=== PATIENT | female | born 1935 | race Caucasian/White ===

== ENCOUNTER → 2019-04-22 | Outpatient (CLI) | payer MEDICARE, SELFPAY ==
[2019-04-22 06:55] VITALS: BMI 27.5
--- NOTE | 2019-04-22 08:55 | LES_PTH ---
PATIENT: MARIAM DUEÑAS LOC: [facility] U#:[id number] AGE/SX: 83/F ROOM: RE04/22/[address]: Dr. Harsha Magaña MD : 1935 BED: DIS: 04/22/2019 SPEC #: [id number] RECD: 04/24/19 07:20 STATUS: ELISEO REIsacc #: [id number] BERNA: 04/22/19 08:[address]: Harsha Magaña DEPT: SURGICAL PATHOLOGY RECD BY: Krishna Sainz ENTERED: 04/24/19 11:36 SP TYPE: Lesion OTHR DR: Dr. Sam Magaña III, MD Tissues: Skin of forearm, NOS Procedures: Surgery Specimen Level IV HEADER OPERATION: Excision right mid forearm skin lesion PRE-OP DIAGNOSIS: Neoplasm of skin TISSUE SUBMITTED: Right mid forearm skin lesion MICROSCOPIC DIAGNOSIS Right mid forearm skin lesion, excisional biopsy: Basal cell carcinoma, completely excised (1 cm in greatest width) with focal area of ulceration and associated inflammation. Actinic keratosis. BELKIS:greta 04/26/19 MICROSCOPIC DESCRIPTION Slides are reviewed. GROSS DESCRIPTION Received in fixative is one container labeled with the patient's name and designated right forearm. The specimen consists of a wood-white skin ellipse measuring 3.2 x 1.7 cm and up to 0.8 cm in thickness. There is a raised brown lesion on the surface measuring 0.5 cm in greatest dimension. The specimen is inked, serially sectioned and submitted entirely in four cassettes. Cassette 1 contains the tips of skin ellipse. The specimen is submitted after additional fixation. / BELKIS:greta 04/24/19 TC:0 CPT: 64527
== END | disposition home or self-care (01) ==
LOC: LABSPEC 04-24 10:01
PROVIDERS: Family Provider Family Medicine; PCP Family Medicine; Referring Provider Surgery; Visit Provider Surgery
DX: C44.612 Basal cell carcinoma of skin of right upper limb, including shoulder (principal); L57.0 Actinic keratosis
CPT/HCPCS: 88305

== ENCOUNTER 2019-05-23 08:21 | Emergency (ER) | payer MEDICARE, SELFPAY ==
[2019-04-22 06:55] VITALS: BMI 27.5
[2019-05-23 08:22] VITALS: BP 152/80; PULSE 72; RESP 18; TEMP 36.6; O2SAT 99; BMI 28.1
--- NOTE | 2019-05-23 08:59 | RAD_ITS ---
STUDY: X-RAY - RIGHT SHOULDER REASON FOR EXAM: Female, 83 years old. Atraumatic pain with decreased range of motion. TECHNIQUE: 4 view(s) of the shoulder. COMPARISON: None. FINDINGS: There is mild degenerative arthrosis of the glenohumeral articulation. Normal acromioclavicular joint. Normal acromion. Normal humeral head and visualized proximal humerus. The soft tissue structures are unremarkable. Normal visualized pulmonary apex. RAD/Shoulder min 2 Views IMPRESSION: Mild degree of arthrosis of the glenohumeral joint Electronically Signed: Kareem Viera, at 9:27 EDT , Service support ,
--- NOTE | 2019-05-23 09:01 | ED.DCSUM_ITS ---
- ER Visit Summary Date of Service: 05/23/19 Chief Complaint: Atraumatic right shoulder pain History of Present Illness: The patient is a 83 F past medical history of diabetes and left shoulder replacement secondary to fracture. Patient had atraumatic right shoulder pain since yesterday. Gradual onset. No fever or chills. No redness or swelling. No type of injury. Pain is a lot worse with trying to move it and lift the arm up. She is unable to raise it above her shoulder due to pain. She did take 2 Tylenol at home which is helped her with the discomfort. No numbness, tingling or weakness in her right hand. No other complaints. Physical Examination: Older female coming by daughter. Vital signs are stable and afebrile. H EENT exam unremarkable. Neck nontender. Lungs clear to auscultation bilaterally. Heart regular rhythm no murmur. Abdomen soft nontender. Extremities moves all 4. Neurovascular intact. Specifically the right shoulder is not tender. Is not swollen. There is no redness or warmth. She has full range of motion with flexion-extension of the right elbow and right wrist. Neither are tender. The wrist has normal radial pulse. 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 The right shoulder she has pain with active passive range of motion primarily when he try to raise it above her shoulder. There is no swelling to the arm. Skin is unremarkable. Neurologically she is awake and alert with no focal motor or sensory deficits. Test Results: Right shoulder x-ray acute abnormality. No significant signs of arthritis. Good joint space. Read both by myself and the radiologist. 3 views. Emergency Department Course and Treatment: And daughter and I discussed all of her treatment options. Daughter strongly wanted to get a right shoulder joint injection. Area was cleaned thoroughly using alcohol pads. And using a posterior lateral approach I injected a total of 10 cc of Xylocaine and Kenalog in her right shoulder joint. Patient tolerated procedure well. She started getting relief within minutes. She was instructed to watch for any signs of infection. Treatment Plan: Ice to the shoulder. Tylenol for pain. Limited Motrin. Follow-up with local orthopedics. Disposition: Discharge Impression: Atraumatic right shoulder pain Right shoulder joint injection with Xylocaine and Kenalog by ER History of diabetes This note was generated with Websandation software. It may contain incorrect words, spelling, and punctuation that were not noted in review of the chart prior to signing ED Disposition - Plan for ED Patient: Referrals: Sam Magaña III, MD [Primary Care Provider] -
--- NOTE | 2019-05-23 09:50 | ED.DEP ---
ED Disposition - Plan for ED Patient: Disposition: Home or Assisted Living Referrals: Sam Magaña III, MD [Primary Care Provider] - As Needed Bebo Venegas DO [STAFF PHYSICIAN] - 3-5 Days Additional Instructions: Follow-up with a local orthopedic doctor of your choice. Ice to shoulder. Tylenol and limited Motrin for pain. Return to ER if you get a fever or your right shoulder gets red and hot. Pain secondary to either arthritis in your right shoulder for inflammation of the rotator cuff.
[2019-05-23] MEDS: Triamcinolone Acetonide 40 MG/ML Vial IU (09:59)
== END 2019-05-23 10:01 | disposition home or self-care (01) ==
PROVIDERS: Emergency Provider Emergency Medicine; Family Provider Family Medicine; PCP Family Medicine
DX: M19.011 Primary osteoarthritis, right shoulder (principal); M25.511 Pain in right shoulder; E11.9 Type 2 diabetes mellitus without complications; Z96.612 Presence of left artificial shoulder joint; Z79.84 Long term (current) use of oral hypoglycemic drugs; Z79.899 Other long term (current) drug therapy
CPT/HCPCS: 20610; 73030; 96372; 99282

== ENCOUNTER 2024-10-04 10:31 | Inpatient (IN) | payer MEDICARE, SELFPAY ==
[2024-10-04] VITALS (23 sets, daily range): BP systolic 105–231; BP diastolic 54–103; PULSE 66–99; RESP 12–33; TEMP 36.1–37; O2SAT 87–99; BMI 31.3; BMI 29.6
--- NOTE | 2024-10-04 11:04 | RAD_ITS ---
STUDY: X-RAY CHEST REASON FOR EXAM: Female, 89 years old. Shortness of breath TECHNIQUE: Single AP portable view of the chest. COMPARISON: Comparison is made with prior study dated April 25, 2013. FINDINGS: EKG electrodes are seen. Vascular congestion and CHF with blunting of both costophrenic angles. Airspace disease in the left hemithorax suggestive of either superimposed infection or possible atypical pulmonary edema. There is borderline cardiomegaly. Normal mediastinum and jayden. Normal visualized pulmonary arteries. There is atherosclerotic calcification of the aortic arch with tortuosity. Normal visualized thoracic spine. Status post left reverse shoulder replacement. There is no demonstrated abnormality of the visualized soft tissue structures of the upper abdomen. RAD/Chest 1 View (Portable) IMPRESSION: Findings in comparison with the CHF has described. Airspace disease in the left hemithorax suggestive of either superimposed infection versus atypical pulmonary edema. Electronically Signed: Kareem Viera MD at 12:25 EST ,
--- NOTE | 2024-10-04 11:05 | EDS_ITS ---
HPI History of Present Illness Chief Complaint: Shortness of Breath Narrative Narrative: 89-year-old female presents with increasing shortness of breath that started this morning. History and physical is mildly limited secondary to respiratory distress. Her daughter who is at the bedside states that this morning, she started having increasing difficulty breathing. She is audibly rhonchorous. She complains of chest heaviness and difficulty breathing. She also states that she feels hot. Daughter states that her legs have been increasingly swollen recently as well. However, she does not have a history of COPD or CHF. [facility] Medical History Skin cancer Dehydration GERD (gastroesophageal reflux disease) Acute blood loss anemia Closed left hip fracture HTN (hypertension) Hypercholesteremia Type II diabetes mellitus Home Medications ?Medication ?Instructions ?Recorded ?Last Taken ?Type atorvastatin 80 mg tablet 80 mg PO QHS 08/25/13 Unknown History glimepiride 2 mg tablet 4 mg PO DAILY 08/25/13 02/08/15 07:00 History lisinopril 40 mg tablet 40 mg PO DAILY 08/25/13 02/14/16 05:00 History multivitamin with folic acid 400 1 tab PO DAILYCM #30 tabs 02/11/15 Unknown Rx mcg tablet amlodipine 5 mg tablet 5 mg PO DAILY 04/10/19 Unknown History Poglitasone 15 mg PO DAILY 05/23/19 Unknown History omeprazole 40 mg capsule,delayed 40 mg PO DAILY 05/23/19 Unknown History release blood sugar diagnostic (True 10/04/24 Unknown History Metrix Glucose Test Strip) Allergy/AdvReac Type Severity Reaction Status Date / Time metformin Allergy Hives Verified 05/23/19 08:24 morphine AdvReac Nausea Verified 05/23/19 08:24 oxycodone (Oxycodone) AdvReac Nausea Verified 05/23/19 08:24 Family History Sister Breast cancer Colon cancer Diabetes Uncle Heart disease Brother Kidney disease Surgical History History of cholecystectomy History of hip replacement History of shoulder replacement S/P ORIF (open reduction internal fixation) fracture Social History household members: none current occupational status: retired Smoking Status: Never smoker alcohol intake: never substance use type: does not use ROS ROS ED ROS Narrative Constitutional: No fever, no chills. However, subjectively warm all over. HEENT: No sore throat. No neck pain. No loss of vision. No rhinorrhea. Cardiovascular: Positive chest heaviness chest pain. No palpitations. Positive/increased pedal edema. Respiratory: Occasional cough, increasing shortness of breath. Abdominal: No abdominal pain. No nausea. No vomiting. Genitourinary: No dysuria. No hematuria. Musculoskeletal: No myalgias. No arthralgias. Neurologic: No headaches. No dizziness. No lightheadedness. Skin: No rash. No change in color. EXAM Physical Exam Narrative Exam Narrative: Afebrile. Vital signs noted. Mild respiratory distress. Cardiovascular examination reveals a regular rate and rhythm. Lungs are rhonchorous with positive tachypnea. Abdomen is soft and nontender with positive bowel sounds. No guarding or rebound. Neurological examination nonfocal and nonlateralizing. Mild anxiety. Positive bilateral pitting pedal edema, equal and symmetric. Const Vital Signs: 10/04/24 10:32 10/04/24 10:37 10/04/24 10:38 Temperature 98.2 F 98.2 F 98.2 F Temperature Source Temporal Temporal Temporal Pulse Rate 66 69 69 Respiratory Rate 28 H 30 H 27 H Respiratory Effort Respiratory Pattern Blood Pressure 231/86 H 231/86 H 231/86 H Blood Pressure Mean 134 134 134 Pulse Ox 95 92 92 Oxygen Delivery Method Room Air Room Air Room Air 10/04/24 10:38 Temperature Temperature Source Pulse Rate Respiratory Rate Respiratory Effort Short of Breath Respiratory Pattern Tachypnea Blood Pressure Blood Pressure Mean Pulse Ox Oxygen Delivery Method Room Air MDM MDM MDM Narrative Medical decision making narrative: The differential diagnosis includes but not limited to acute coronary syndrome versus flash pulmonary edema versus pneumonia versus pneumothorax. Her oxygen saturations were dropping and were 95% on room air then 92% so she was placed on nasal cannula oxygen. Given her tachypnea, I do feel that she would be more comfortable on BiPAP. I discussed with her daughter who is at the bedside whether or not she would want to be intubated, but they declined stating that that is not something that she would not want. History & Record Review Discussion w/independent historian: Patient and Family Discharge Plan Triage Chief Complaint: Shortness of Breath ED Provider: Julio Pickens Dx/Rx/DC Orders Prescriptions: No Action amlodipine 5 mg tablet 5 mg PO DAILY atorvastatin 80 MG tablet 80 mg PO QHS Patient Comments: cholesterol glimepiride 2 MG tablet 4 mg PO DAILY Patient Comments: blood sugar lisinopril 40 MG tablet 40 mg PO DAILY Patient Comments: blood pressure multivitamin with folic acid 1 TABLET tablet 1 tab PO DAILYCM Qty: 30 0RF Patient Comments: supplement omeprazole 40 MG capsule,delayed release(DR/EC) 40 mg PO DAILY Poglitasone 15 mg PO DAILY (DME) True Metrix Glucose Test Strip Strip MISCELLANEOUS DAILY Primary Care Provider: Treva Sandoval Referrals: Treva Sandoval [employer] [Primary Care Provider] - Print Language: Ugandan
--- NOTE | 2024-10-04 11:05 | ED.VIS.DYS ---
HPI History of Present Illness Chief Complaint: Shortness of Breath Narrative Narrative: 89-year-old female presents with increasing shortness of breath that started this morning. History and physical is mildly limited secondary to respiratory distress. Her daughter who is at the bedside states that this morning, she started having increasing difficulty breathing. She is audibly rhonchorous. She complains of chest heaviness and difficulty breathing. She also states that she feels hot. Daughter states that her legs have been increasingly swollen recently as well. However, she does not have a history of COPD or CHF. [facility] Medical History (Updated 10/04/24 @ 14:43 by Julio Pickens MD) Anemia Diabetes Non-smoker Skin cancer Dehydration GERD (gastroesophageal reflux disease) Acute blood loss anemia Closed left hip fracture HTN (hypertension) Hypercholesteremia Type II diabetes mellitus Home Medications ?Medication ?Instructions ?Recorded ?Last Taken ?Type atorvastatin 80 mg tablet 80 mg PO QHS 08/25/13 Unknown History glimepiride 2 mg tablet 4 mg PO DAILY 08/25/13 02/08/15 07:00 History lisinopril 40 mg tablet 40 mg PO DAILY 08/25/13 02/14/16 05:00 History multivitamin with folic acid 400 1 tab PO DAILYCM #30 tabs 02/11/15 Unknown Rx mcg tablet amlodipine 5 mg tablet 5 mg PO DAILY 04/10/19 Unknown History Poglitasone 15 mg PO DAILY 05/23/19 Unknown History omeprazole 40 mg capsule,delayed 40 mg PO DAILY 05/23/19 Unknown History release blood sugar diagnostic (True 10/04/24 Unknown History Metrix Glucose Test Strip) Allergy/AdvReac Type Severity Reaction Status Date / Time metformin Allergy Hives Verified 05/23/19 08:24 morphine AdvReac Nausea Verified 05/23/19 08:24 oxycodone (Oxycodone) AdvReac Nausea Verified 05/23/19 08:24 Family History Sister Breast cancer Colon cancer Diabetes Uncle Heart disease Brother Kidney disease Surgical History (Updated 10/04/24 @ 13:59 by Ade Whiitng) History of appendectomy History of cholecystectomy History of hip replacement History of shoulder replacement S/P ORIF (open reduction internal fixation) fracture Social History household members: none current occupational status: retired Smoking Status: Never smoker alcohol intake: never substance use type: does not use ROS ROS ED ROS Narrative Constitutional: No fever, no chills. However, subjectively warm all over. HEENT: No sore throat. No neck pain. No loss of vision. No rhinorrhea. Cardiovascular: Positive chest heaviness chest pain. No palpitations. Positive/increased pedal edema. Respiratory: Occasional cough, increasing shortness of breath. Abdominal: No abdominal pain. No nausea. No vomiting. Genitourinary: No dysuria. No hematuria. Musculoskeletal: No myalgias. No arthralgias. Neurologic: No headaches. No dizziness. No lightheadedness. Skin: No rash. No change in color. EXAM Physical Exam Narrative Exam Narrative: Afebrile. Vital signs noted. Mild respiratory distress. Cardiovascular examination reveals a regular rate and rhythm. Lungs are rhonchorous with positive tachypnea. Abdomen is soft and nontender with positive bowel sounds. No guarding or rebound. Neurological examination nonfocal and nonlateralizing. Mild anxiety. Positive bilateral pitting pedal edema, equal and symmetric. Const Vital Signs: 10/04/24 10:32 10/04/24 10:37 10/04/24 10:38 Temperature 98.2 F 98.2 F 98.2 F Temperature Source Temporal Temporal Temporal Pulse Rate 66 69 69 Respiratory Rate 28 H 30 H 27 H Respiratory Effort Respiratory Pattern Blood Pressure 231/86 H 231/86 H 231/86 H Blood Pressure Mean 134 134 134 Pulse Ox 95 92 92 Oxygen Delivery Method Room Air Room Air Room Air Fraction of Inspired Oxygen (FIO2) 10/04/24 10:38 10/04/24 11:04 10/04/24 11:10 Temperature Temperature Source Pulse Rate 97 Respiratory Rate 26 H Respiratory Effort Short of Breath Respiratory Pattern Tachypnea Tachypnea Blood Pressure Blood Pressure Mean Pulse Ox 90 Oxygen Delivery Method Room Air Nasal Cannula Fraction of Inspired Oxygen (FIO2) 10/04/24 11:30 10/04/24 11:51 10/04/24 11:56 Temperature 98.6 F Temperature Source Oral Pulse Rate 97 98 98 Respiratory Rate 33 H 26 H 29 H Respiratory Effort Respiratory Pattern Tachypnea Blood Pressure 178/103 H Blood Pressure Mean 128 Pulse Ox 89 93 94 Oxygen Delivery Method Bi-pap Fraction of Inspired Oxygen (FIO2) 50 10/04/24 12:00 10/04/24 13:00 10/04/24 13:00 Temperature 98.2 F 98.4 F Temperature Source Oral Temporal Pulse Rate 93 79 77 Respiratory Rate 25 H 23 H 29 H Respiratory Effort Respiratory Pattern Blood Pressure 133/61 H 105/76 105/76 Blood Pressure Mean 85 85 85 Pulse Ox 96 97 97 Oxygen Delivery Method Bi-pap Bi-pap Bi-pap Fraction of Inspired Oxygen (FIO2) 10/04/24 13:41 10/04/24 14:00 10/04/24 14:00 Temperature 98.4 F 98.2 F Temperature Source Temporal Pulse Rate 77 78 78 Respiratory Rate 29 H 21 H 21 H Respiratory Effort Respiratory Pattern Blood Pressure 105/76 128/56 H 128/56 H Blood Pressure Mean 85 80 80 Pulse Ox 97 98 98 Oxygen Delivery Method Bi-pap Bi-pap Fraction of Inspired Oxygen (FIO2) MDM MDM MDM Narrative Medical decision making narrative: The differential diagnosis includes but not limited to acute coronary syndrome versus flash pulmonary edema versus pneumonia versus pneumothorax. Her oxygen saturations were dropping and were 95% on room air then 92% so she was placed on nasal cannula oxygen. Given her tachypnea, I do feel that she would be more comfortable on BiPAP. I discussed with her daughter who is at the bedside whether or not she would want to be intubated, but they declined stating that that is not something that she would not want. I reviewed her laboratory work and she has a white count of 7.5, hemoglobin 11.0, hematocrit 34.0, platelet count normal at 239. Electrolyte panel is significant for chloride of 110 which I think is more nonspecific, BUN of 29 and creatinine 1.21. Glucose is elevated at 138 but anion gap low at 4. High-sensitivity troponin is 15. Beta natruretic peptide is elevated at 496. On my individual interpretation of her chest x-ray, it does seem like CHF. There is also overlying questionable infiltrate on the left. I reviewed the radiology report which confirms my independent interpretation and comments that this could be atypical pulmonary edema on the left or overlying infection. She does not have a white count or fever here so I will defer antibiotics. She did have continued elevated blood pressure which makes me think that she might be having flash pulmonary edema or hypertensive emergency. She was placed on BiPAP. The BiPAP was causing her anxiety so she was administered Ativan 0.5 mg intravenously as well as hydralazine. As I thought she was having more pulmonary edema, she was also administered Lasix 40 mg intravenously. Her blood pressure is now 128 systolic. She has improved. I discussed the patient with the hospitalist, Dr. Dena Valente, who requested ABG be drawn to see if she required ICU admission. However, her pH is normal and her pCO2 slightly low with elevated pCO2 of 105. She might be able to be weaned off the BiPAP. At this point in time she was admitted to the PCU in stable condition. History & Record Review Discussion w/independent historian: Patient and Family Lab Data Attestation: I reviewed the patient's lab results. Labs: Laboratory Results - last 24 hr 10/04/24 10:49 WBC 7.5 RBC 3.66 L Hgb 11.0 L Hct 34.0 L MCV 92.9 MCH 30.1 MCHC 32.4 RDW Std Deviation 47.4 H RDW Coeff of Najma 14.0 Plt Count 239 MPV 9.5 Immature Gran % (Auto) 0.300 Neut % (Auto) 70.1 H Lymph % (Auto) 19.5 Esmeralda % (Auto) 8.4 Eos % (Auto) 0.9 Baso % (Auto) 0.8 Absolute Neuts (auto) 5.2 Absolute Lymphs (auto) 1.46 Nucleated RBC % 0 Sodium 140 Potassium 4.4 Chloride 110 H Carbon Dioxide 26.0 Anion Gap 4 L BUN 29 H Creatinine 1.21 H Estim Creat Clear Calc 30.42 Est GFR (MDRD) Af Amer 54 L Est GFR (MDRD) Non-Af 45 L BUN/Creatinine Ratio 24.0 H Glucose 138 H Calcium 9.7 Troponin I High Sens 15 B-Natriuretic Peptide 496.4 H ABG Data ABG results: ABG 10/04/24 14:21 Specimen Type ART Sample Site R Radial pH 7.41 Bicarbonate Actual 22.2 Total CO2 23 Base Excess -2 O2 Saturation 98 O2 % 50.0 ABG pCO2 34.7 L ABG pO2 105 H Jacinto Test Positive O2 Delivery Device BiPAP Vent Mode Not entered Clinical Comments 14 6 Radiography Chest X-Ray - ED: 1 View, Read by ED Physician and Read by Radiologist Diagnostic Testing: Clinical Impression(s) from Imaging Studies Chest X-Ray 10/04/24 11:04 IMPRESSION: Findings in comparison with the CHF has described. Airspace disease in the left hemithorax suggestive of either superimposed infection versus atypical pulmonary edema. Electronically Signed: Kareem Viera MD at 12:25 EST , Management Discussion w/another healthcare provider: Hospitalist (Dr. Dena Valente) Discharge Plan Dx/Rx/DC Orders Clinical Impression: Acute hypoxic respiratory failure, CHF (congestive heart failure), Chest heaviness, Dyspnea, Anxiety Disposition Disposition: Acute Care Hospital [facility]
[2024-10-04] MEDS: Ipratropium/Albuterol Sulfate 3 ML AMPUL.NEB INHALATION ×2 (11:06→11:08)
[2024-10-04 11:11] LABS: Absolute Lymphocyte Count 1.46 X10^3/uL (0.83-4.51); Absolute Neutrophil Count 5.2 X10^3/uL (2.0-7.7); Basophil# 0.06 X10^3/uL; Basophil% 0.8 % (0-1); Eosinophil# 0.07 X10^3/uL; Eosinophils% 0.9 % (0-5); Lymphocyte # 1.46 X10^3/ul (0.83-4.51); Lymphocyte % 19.5 % (19-41); Mean Corp Hgb Conc 32.4 g/dL (32-36); Mean Corpuscular Hgb 30.1 pg (27.0-32.0); Mean Corpuscular Volume 92.9 fL (81-99); Mean Platelet Vol. 9.5 fl (6.2-12.0); Monocyte# 0.63 X10^3/uL; Monocyte% 8.4 % (0-10); NRBC Flagged by Analyzer 0 % (0-5); Neutrophil # 5.23 X10^3/uL (2.7-7.7); Neutrophil % 70.1 % (47-70); Platelet Count 239 K/mm3 (150-450); RBC Distribution Width SD 47.4 fl (35.1-43.9); Red Blood Count 3.66 M/mm3 (4.2-5.4); White Blood Count 7.5 K/mm3 (4.4-11.0)
[2024-10-04 11:31] LABS: Anion Gap 4 (5-15); BNP,B-Type NATRIURETIC PEPTIDE 496.4 pg/mL (0-100); BUN 29 mg/dL (7-18); Calcium,Total 9.7 mg/dL (8.5-10.1); Chloride 110 mmol/L (98-107); Creatinine, Serum 1.21 mg/dL (0.55-1.02); EST Glomerular Filtration Rate 45 mL/min (>60); Est Glom Filt Rate - Afr Amer 54 mL/min (>60); Estimated Creatinine Clearance 30.42 ml/min; Glucose 138 mg/dL (74-106); Potassium 4.4 mmol/L (3.5-5.1); Sodium Level 140 mmol/L (136-145); Troponin-I HS 15 pg/mL (3.0-54.0)
[2024-10-04] MEDS: hydrALAZINE 20 MG/ML Vial IV (11:46)
[2024-10-04] MEDS: LORazepam 2 MG/ML Syringe 0.5 MG IV (12:20)
[2024-10-04] MEDS: Furosemide 40 MG/4 ML Vial IV (12:36)
[2024-10-04 14:24] LABS: Allen Test Positive; Base Excess -2 mmol/L (-2 to +2); Bicarbonate 22.2 mmol/L (22-26); Blood Gas Specimen Type ART; Comment 14 6; Mode Not entered; O2 Delivery Device BiPAP; PO2 105 mmHG (75-100); SITE R Radial; SO2 98 % (95-99); Total Carbon Dioxide 23 mmol/L; pCO2 34.7 mmHg (35-45); pH 7.41 (7.35-7.45)
--- NOTE | 2024-10-04 14:40 | HP.PCM.HOS_ITS ---
HPI - General General Date of Admission: 10/04/24 Date of Service: 10/04/24 Chief Complaint: Shortness of breath HPI Narrative MARIAM DUEÑAS, is a 89 F who presented to the emergency department [facility] on 10/04/2024 with shortness of breath. Patient and family both assist with the history. It reported that her symptoms started yesterday and she reported to her son that she just was not feeling quite right but did not describe any symptoms at that time. Evidently today she began having shortness of breath without any significant new cough. She has chronic cough but this has been unchanged. She denies any fever or chills. She denies any new sputum production with cough. She has not had any nausea vomiting or diarrhea. She denies chest pain. She denies any upper respiratory symptoms. She has no known sick contacts. She has never had an echocardiogram and has no known heart issues but does have a history of hypertension and hyperlipidemia as well as DM-2. Family also reiterates that her legs have been much more swollen over the last few weeks. Vital signs on presentation showed a temperature of 98.2, heart rate 66, initial blood pressure was 231/86 with a repeat after treatment of 133/61, respiratory rate has been anywhere between 21 and 33 while she has been in the emergency department and pulse ox was 89% on room air at [place]. She was placed on BiPAP for work of breathing predominantly. CBC shows a normal white count mild anemia with a hemoglobin of 11.0 that is normocytic and appears to be stable when compared to previous lab. She did have a mild left shift at 70.1% neutrophilia. Chemistry panel shows stable electrolytes. BUN is 29 and her serum creatinine is 1.2 with unknown recent baseline however patient does acknowledge she has CKD. Blood glucose was 143. BNP was obtained and found to be 496.4. Her troponin was normal. EKG shows normal sinus rhythm with normal intervals and no ST-T wave changes concerning for acute ischemia. Chest x-ray is consistent with volume overload with possible airspace disease on the left side that would be consistent with possible atypical infection versus pulmonary edema. COVID/flu/RSV was negative. ABG was drawn and showed a pH of 7.41 with a pCO2 of 34.7 and a pO2 of 105 on 50% FiO2. In the emergency department she was placed on BiPAP and given a dose of IV Lasix. [facility] Medical History Anemia Diabetes Non-smoker Skin cancer Dehydration GERD (gastroesophageal reflux disease) Acute blood loss anemia Closed left hip fracture HTN (hypertension) Hypercholesteremia Type II diabetes mellitus Home Medications ?Medication ?Instructions ?Recorded ?Last Taken ?Type atorvastatin 80 mg tablet 80 mg PO QHS 08/25/13 Unknown History glimepiride 2 mg tablet 4 mg PO DAILY 08/25/13 02/08/15 07:00 History lisinopril 40 mg tablet 40 mg PO DAILY 08/25/13 02/14/16 05:00 History multivitamin with folic acid 400 1 tab PO DAILYCM #30 tabs 02/11/15 Unknown Rx mcg tablet amlodipine 5 mg tablet 5 mg PO DAILY 04/10/19 Unknown History Poglitasone 15 mg PO DAILY 05/23/19 Unknown History omeprazole 40 mg capsule,delayed 40 mg PO DAILY 05/23/19 Unknown History release blood sugar diagnostic (True 10/04/24 Unknown History Metrix Glucose Test Strip) Allergy/AdvReac Type Severity Reaction Status Date / Time metformin Allergy Hives Verified 05/23/19 08:24 morphine AdvReac Nausea Verified 05/23/19 08:24 oxycodone (Oxycodone) AdvReac Nausea Verified 05/23/19 08:24 Family History Sister Breast cancer Colon cancer Diabetes Uncle Heart disease Brother Kidney disease Surgical History History of appendectomy History of cholecystectomy History of hip replacement History of shoulder replacement S/P ORIF (open reduction internal fixation) fracture Social History household members: none current occupational status: retired Smoking Status: Never smoker alcohol intake: never substance use type: does not use ROS Constitutional Constitutional: Denies anorexia, change in weight, chills, fatigue, fever(s), malaise, night sweats, weakness or other Eyes Eyes: Denies blurry vision, change in eye color, change in vision, discharge from eye(s), double vision, erythema, eye pain, loss of vision or other ENT HEENT: Denies abnormal hearing, dysphagia, ear pain, epistaxis, headache(s), hearing loss, nasal congestion, nasal discharge, post nasal drip, sinus pressure, sore throat or other Cardiovascular Cardiovascular: Reports dyspnea on exertion, edema and orthopnea; Denies chest pain, claudication, lightheadedness, palpitations, paroxysmal nocturnal dyspnea, rapid heart rate, syncope or other Respiratory/Chest Respiratory/Chest: Reports cough, dyspnea, shortness of breath at rest, shortness of breath with exertion and wheezing; Denies excessive phlegm production, hemoptysis, productive cough or other Gastrointestinal Gastrointestinal: Denies abdominal pain, coffee ground emesis, constipation, diarrhea, dyspepsia, hematemesis, hematochezia, loose stools, melena, nausea, vomiting or other Genitourinary Genitourinary: Denies burning urination, difficulty urinating, dysuria, hematuria, nocturia, urinary frequency, urinary hesitancy, urinary incontinence, urinary urgency or other Musculoskeletal Musculoskeletal: Denies arthralgias, back pain, joint pain, joint stiffness, joint swelling, myalgias, neck pain or other Neurologic Neurologic: Denies abnormal gait, abnormal speech, confusion, disequilibrium, dizziness, focal weakness, headache(s), numbness, paresthesias, seizure-like activity, seizures, syncope, tingling, tremor(s) or other Psychiatric Psychiatric: Denies anxiety, depression, homicidal ideation, suicidal ideation or other Endocrine Endocrinology: Denies change in body appearance, cold intolerance, excessive sweating, heat intolerance, polydipsia, polyuria or other Hematologic/Lymphatic Hematologic/Lymphatic: Denies anemia, easy bleeding, easy bruising, lymphadenopathy or other Allergic/Immunologic Allergic/Immunologic: Denies rhinitis, hives, eczemia, asthma or other Vital Signs Vital Signs Vital Signs: 10/04/24 10:32 10/04/24 10:37 10/04/24 10:38 Temperature 98.2 F 98.2 F 98.2 F Temperature Source Temporal Temporal Temporal Pulse Rate 66 69 69 Respiratory Rate 28 H 30 H 27 H Respiratory Effort Respiratory Pattern Blood Pressure 231/86 H 231/86 H 231/86 H Blood Pressure Mean 134 134 134 Pulse Ox 95 92 92 Oxygen Delivery Method Room Air Room Air Room Air Fraction of Inspired Oxygen (FIO2) 10/04/24 10:38 10/04/24 11:04 10/04/24 11:10 Temperature Temperature Source Pulse Rate 97 Respiratory Rate 26 H Respiratory Effort Short of Breath Respiratory Pattern Tachypnea Tachypnea Blood Pressure Blood Pressure Mean Pulse Ox 90 Oxygen Delivery Method Room Air Nasal Cannula Fraction of Inspired Oxygen (FIO2) 10/04/24 11:30 10/04/24 11:51 10/04/24 11:56 Temperature 98.6 F Temperature Source Oral Pulse Rate 97 98 98 Respiratory Rate 33 H 26 H 29 H Respiratory Effort Respiratory Pattern Tachypnea Blood Pressure 178/103 H Blood Pressure Mean 128 Pulse Ox 89 93 94 Oxygen Delivery Method Bi-pap Fraction of Inspired Oxygen (FIO2) 50 10/04/24 12:00 10/04/24 13:00 10/04/24 13:00 Temperature 98.2 F 98.4 F Temperature Source Oral Temporal Pulse Rate 93 79 77 Respiratory Rate 25 H 23 H 29 H Respiratory Effort Respiratory Pattern Blood Pressure 133/61 H 105/76 105/76 Blood Pressure Mean 85 85 85 Pulse Ox 96 97 97 Oxygen Delivery Method Bi-pap Bi-pap Bi-pap Fraction of Inspired Oxygen (FIO2) 10/04/24 13:41 10/04/24 14:00 10/04/24 14:00 Temperature 98.4 F 98.2 F Temperature Source Temporal Pulse Rate 77 78 78 Respiratory Rate 29 H 21 H 21 H Respiratory Effort Respiratory Pattern Blood Pressure 105/76 128/56 H 128/56 H Blood Pressure Mean 85 80 80 Pulse Ox 97 98 98 Oxygen Delivery Method Bi-pap Bi-pap Fraction of Inspired Oxygen (FIO2) Weight Weight: 77.7 kg Body Mass Index (BMI) 31.3 Physical Exam Const alert, oriented x3, no apparent distress and well nourished; Negative for average body habitus Constitutional Narrative: Obese, elderly, white female, sitting up in bed on BiPAP, appears comfortable at this time, no significant signs of respiratory distress/extremis, appears nontoxic, family at bedside General Appearance: cooperative HEENT normocephalic, head/scalp atraumatic and moist oral mucous membranes; Negative for hearing grossly normal bilaterally HEENT Narrative: Moderate hearing loss Eyes conjunctivae normal Eyes Narrative: No scleral icterus Neck no lymphadenopathy and supple Neck Narrative: Trachea midline, JVD is present, hepatojugular reflex is positive Resp No normal respiratory effort, no retractions, no use of accessory muscles and No clear to auscultation bilaterally Resp Narrative: Tachypnea, breath sounds diffusely are coarse with crackly and scattered wheezing Auscultation: crackles and wheezes; Negative for rhonchi Cardio regular rate, regular rhythm, S1 normal heart sound, S2 normal heart sound, no murmurs, no rub, no gallops and no clicks GI normal to inspection, nondistended, normoactive bowel sounds, soft to palpation and non-tender Extremity Extremity Narrative: 2-3+ bilateral lower extremity pitting edema, no cyanosis or clubbing, radial pulses are 2+ bilaterally, pedal pulses are difficult to palpate due to edema Neuro oriented x3, moves all extremities and no focal motor deficits Neuro Narrative: Moves all extremities symmetrically Psych affect normal Psych Narrative: Interacts appropriately, very pleasant Results Lab / Micro Data 10/04/24 10:49 10/04/24 10:49 Labs: Laboratory Results - last 24 hr 10/04/24 10:49: WBC 7.5, RBC 3.66 L, Hgb 11.0 L, Hct 34.0 L, MCV 92.9, MCH 30.1, MCHC 32.4, RDW Std Deviation 47.4 H, RDW Coeff of Najma 14.0, Plt Count 239, MPV 9.5, Immature Gran % (Auto) 0.300, Neut % (Auto) 70.1 H, Lymph % (Auto) 19.5, [place] % (Auto) 8.4, Eos % (Auto) 0.9, Baso % (Auto) 0.8, Absolute Neuts (auto) 5.2, Absolute Lymphs (auto) 1.46, Nucleated RBC % 0, Sodium 140, Potassium 4.4, Chloride 110 H, Carbon Dioxide 26.0, Anion Gap 4 L, BUN 29 H, Creatinine 1.21 H, Estim Creat Clear Calc 30.42, Est GFR (MDRD) Af Amer 54 L, Est GFR (MDRD) Non-Af 45 L, BUN/Creatinine Ratio 24.0 H, Glucose 138 H, Calcium 9.7, Troponin I High Sens 15, B-Natriuretic Peptide 496.4 H Micro: Microbiology 10/04/24 11:43 Mucosa - Nose SARS-CoV-2, Influenza & RSV (PCR) - Final ABG Data ABG results: ABG 10/04/24 14:21 Specimen Type ART Sample Site R Radial pH 7.41 Bicarbonate Actual 22.2 Total CO2 23 Base Excess -2 O2 Saturation 98 O2 % 50.0 ABG pCO2 34.7 L ABG pO2 105 H [place] Test Positive O2 Delivery Device BiPAP Vent Mode Not entered Clinical Comments 14 6 Imaging Radiology Impression Chest X-Ray 10/04/24 11:04 IMPRESSION: Findings in comparison with the CHF has described. Airspace disease in the left hemithorax suggestive of either superimposed infection versus atypical pulmonary edema. Electronically Signed: Kareem Viera MD at 12:25 EST , Assessment & Plan Assessment/Plan (1) Acute hypoxic respiratory failure: (2) Elevated brain natriuretic peptide (BNP) level: (3) Shortness of breath: PLAN: Plan Acute hypoxic respiratory failure -Currently on BiPAP for work of breathing -Initial pO2 was 105 on 50% FiO2 -Wean oxygen as able and transition to nasal cannula as appropriate -Highly suspect secondary to acute heart failure of unknown etiology/type but potential viral illness as well -Chest x-ray appears to be more consistent with heart failure -COVID/flu/RSV negative -Check respiratory viral panel -Given edema and volume overload on exam will start Lasix drip -Check every 4 hours BMPs -Cazares if needed -N.p.o. for now until no longer needs BiPAP -Once p.o. diet can be initiated will utilize salt restricted and fluid restricted to 1500 cc -Daily weights -Accurate I's and O's -Check echocardiogram Elevated BNP -See above -Echocardiogram pending CKD stage IIIb -Serum creatinine remained stable at 1.2 -Check serial BMPs with loop diuretic utilization -Avoid nephrotoxins as able -Lisinopril on hold for now due to diuretic use not because of CKD DM-2 -Patient is on oral agents as an outpatient we will hold while hospitalized -High-dose sliding scale every 6 hours for now since she is n.p.o. and transition to before meals and at bedtime once p.o. diet can be initiated -Accu-Cheks as ordered Essential hypertension/hyperlipidemia -Continue home atorvastatin -Hold home lisinopril for now given Lasix drip and monitor for need of reinitiation -Continue home amlodipine GERD -Continue home PPI Obesity -BMI 31.3 -Complicates treatment, prognosis, outcomes DVT prophylaxis -Subcu Lovenox daily CODE STATUS -DNR CCA okay for short-term intubation only per discussion with patient and family at the bedside -Patient is considering transitioning to no intubation Charges/Coding Visit Charges Inpatient E&M: 32610 Init Hosp L2
[2024-10-04 15:18] LABS: Anion Gap 5 (5-15); BUN 29 mg/dL (7-18); Calcium,Total 9.9 mg/dL (8.5-10.1); Chloride 110 mmol/L (98-107); Creatinine, Serum 1.21 mg/dL (0.55-1.02); EST Glomerular Filtration Rate 45 mL/min (>60); Est Glom Filt Rate - Afr Amer 54 mL/min (>60); Estimated Creatinine Clearance 30.42 ml/min; Glucose 143 mg/dL (74-106); Potassium 4.4 mmol/L (3.5-5.1); Sodium Level 139 mmol/L (136-145)
--- NOTE | 2024-10-04 16:27 | ECHOD_ITS ---
Reason For Study: CONGESTIVE HEART FAILURE Procedure This was a 2D Doppler, Color Flow transthoracic echocardiogram. Exam performed portable in patient room. Left Ventricle Normal LV size. Mild concentric left ventricular hypertrophy. The left ventricular ejection fraction is 65 %. Stage 1 diastolic dysfunction. Right Ventricle Normal right ventricle. Atria The left and right atria are normal. Mitral Valve Severe mitral annular calcification. Mild (1+) mitral valve insufficiency. Tricuspid Valve Mild tricuspid valve insufficiency. Right ventricular systolic pressure estimated to be 41 mmHg. Aortic Valve Mild focal aortic valve calcification. Trivial aortic valve insufficiency. Pulmonic Valve The pulmonic valve is not well visualized. Great Vessels Normal sized aortic root. Pericardium/Pleural Trivial pericardial effusion. Epicardial fat. MMode/2D Measurements & Calculations LVIDd: 4.7 cm IVSd: 1.1 cm LVOT diam: 1.9 cm LVIDs: 2.9 cm LVPWd: 1.2 cm LVOT area: 2.9 cm2 RVDd: 3.1 cm FS: 37.3 % LA dimension: 3.8 cm asc Aorta Diam: 3.0 cm LAV(MOD-bp): 52.2 ml LAV(MOD-bp) Indexed: 29.9 ml/m2 LAV(MOD-sp2): 54.5 ml LAV(MOD-sp4): 46.6 ml SV(MOD-sp4): 28.4 ml LVAd ap4: 17.0 cm2 LVAd ap2: 18.5 cm2 LVLd ap4: 5.8 cm LVLd ap2: 6.3 cm SI(MOD-sp4): 16.3 ml/m2 EDV(MOD-sp4): 40.7 ml EDV(MOD-sp2): 43.8 ml EDV(sp4-el): 42.6 ml EDV(sp2-el): 45.9 ml LVAs ap4: 8.4 cm2 LVAs ap2: 8.2 cm2 LVLs ap4: 4.7 cm LVLs ap2: 4.5 cm ESV(MOD-sp4): 12.3 ml ESV(MOD-sp2): 12.3 ml ESV(sp4-el): 12.9 ml ESV(sp2-el): 12.7 ml EF(MOD-sp4): 69.8 % EF(MOD-sp2): 72.1 % EF(sp4-el): 69.8 % SV(MOD-sp2): 31.6 ml SV(sp4-el): 29.8 ml Ao sinus diam: 3.1 cm SI(MOD-sp2): 18.1 ml/m2 Ao ST Junction: 2.4 cm LA dimension(2D): 3.8 cm LA A4 area: 17.8 cm2 TAPSE: 2.0 cm RA A4 area: 16.8 cm2 Time Measurements MV dec time: 0.30 sec Doppler Measurements & Calculations MV E max marcel: 128.9 cm/sec Lat Peak E' Marcel: 6.6 cm/sec Med Peak E' Marcel: 5.5 cm/sec MV A max marcel: 96.8 cm/sec E/E' lat: 19.6 E/E' med: 23.2 MV E/A: 1.3 MV V2 max: 148.3 cm/sec MV dec slope: 425.4 cm/sec2 Ao V2 max: 158.2 cm/sec MV max P.8 mmHg Ao max P.0 mmHg MV V2 mean: 97.2 cm/sec Ao V2 mean: 106.8 cm/sec MV mean P.1 mmHg Ao mean P.4 mmHg MV V2 VTI: 37.7 cm Ao V2 VTI: 34.7 cm MVA(VTI): 1.8 cm2 AV (velocity ratio): 0.69 MALI(I,D): 2.0 cm2 MALI(V,D): 2.1 cm2 LV V1 max: 112.9 cm/sec SV(LVOT): 69.3 ml PA V2 max: 121.2 cm/sec LV V1 max P.1 mmHg LV V1 mean P.8 mmHg LV V1 mean: 79.6 cm/sec LV V1 VTI: 24.1 cm TR max macrel: 298.2 cm/sec TR max P.6 mmHg ECHO/Echo Complete Interpretation Summary Mild concentric left ventricular hypertrophy. The left ventricular ejection fraction is 65 %. Stage 1 diastolic dysfunction. Severe mitral annular calcification. Mild (1+) mitral valve insufficiency. Mild tricuspid valve insufficiency. Right ventricular systolic pressure estimated to be 41 mmHg. Mild focal aortic valve calcification. Ordering Physician: Jenifer Valente Performed By: Gricelda Cuba RDCS
[2024-10-04 17:28] LABS: Troponin-I HS 775 pg/mL (3.0-54.0)
[2024-10-04] MEDS: Furosemide 500 MG in Empty Viaflex 50 mL 1 EACH CONT INF (17:39)
[2024-10-04] MEDS: 0.9% Saline Lock 10 ML Syringe IV (17:40)
[2024-10-04 18:08] LABS: Bedside Glucose 151 mg/dL (74-106)
[2024-10-04 19:14] LABS: Anion Gap 7 (5-15); BUN 31 mg/dL (7-18); BUN/Creat Ratio 25.4 RATIO (10-20); Calcium,Total 9.4 mg/dL (8.5-10.1); Chloride 108 mmol/L (98-107); Creatinine, Serum 1.22 mg/dL (0.55-1.02); EST Glomerular Filtration Rate 44 mL/min (>60); Est Glom Filt Rate - Afr Amer 53 mL/min (>60); Estimated Creatinine Clearance 29.34 ml/min; Glucose 175 mg/dL (74-106); Potassium 4.1 mmol/L (3.5-5.1); Sodium Level 139 mmol/L (136-145); Troponin-I HS 1024 pg/mL (3.0-54.0)
--- NOTE | 2024-10-04 19:59 | PCM.HOSP.N ---
Hospitalist Note Called by nursing due to change in troponin. Initial troponin was 15 however repeat troponin was 775 with a third troponin at 1024. Heparin drip initiated and reflex to the second troponin. Echocardiogram pending for tomorrow. Will hold off on cardiology consultation at this time and await echocardiogram as troponin elevation could potentially be related to her acute respiratory failure and hypoxemia with subendocardial ischemia. If echocardiogram is abnormal with wall motion abnormality may need to consider cardiology evaluation. Patient did not have chest pain at all during her prehospital or emergency department course.
[2024-10-04] MEDS: Atorvastatin Calcium 80 MG Tablet PO (20:10)
[2024-10-04 21:28] LABS: International Normalized Ratio 1.1; Partial Thromboplast Time 25.2 Seconds (24.1-36.2); Prothrombin Time (Protime)PT. 14.6 SECONDS (11.7-14.9)
[2024-10-04] MEDS: Heparin Injection (Vial) 5,000 UNIT/ML VIAL 4000 UNIT IV (21:47)
[2024-10-04] MEDS: HEPARIN/D5w 25,000 UNITS 25,000 UNITS/250 ML IV.SOLN. 9 UNITS CONT INF (21:53)
[2024-10-04 22:14] LABS: Bedside Glucose 146 mg/dL (74-106)
[2024-10-04 22:55] LABS: Anion Gap 7 (5-15); BUN 33 mg/dL (7-18); BUN/Creat Ratio 24.6 RATIO (10-20); Chloride 108 mmol/L (98-107); Creatinine, Serum 1.34 mg/dL (0.55-1.02); EST Glomerular Filtration Rate 40 mL/min (>60); Est Glom Filt Rate - Afr Amer 48 mL/min (>60); Estimated Creatinine Clearance 26.72 ml/min; Glucose 151 mg/dL (74-106); Sodium Level 139 mmol/L (136-145); Troponin-I HS 1362 pg/mL (3.0-54.0)
[2024-10-05] VITALS (8 sets, daily range): BP systolic 112–144; BP diastolic 44–51; PULSE 65–70; RESP 15–17; TEMP 36.2–36.9; O2SAT 92–96; BMI 29.6
[2024-10-05 04:18] LABS: Absolute Lymphocyte Count 1.49 X10^3/uL (0.83-4.51); Absolute Neutrophil Count 6.9 X10^3/uL (2.0-7.7); Basophil# 0.04 X10^3/uL; Basophil% 0.4 % (0-1); Eosinophil# 0.06 X10^3/uL; Eosinophils% 0.6 % (0-5); Hematocrit 29.1 % (37-47); Hemoglobin 9.5 g/dL (12.0-15.0); Lymphocyte # 1.49 X10^3/ul (0.83-4.51); Lymphocyte % 15.8 % (19-41); Mean Corp Hgb Conc 32.6 g/dL (32-36); Mean Corpuscular Hgb 29.6 pg (27.0-32.0); Mean Corpuscular Volume 90.7 fL (81-99); Mean Platelet Vol. 9.4 fl (6.2-12.0); Monocyte# 0.88 X10^3/uL; Monocyte% 9.4 % (0-10); NRBC Flagged by Analyzer 0 % (0-5); Neutrophil # 6.91 X10^3/uL (2.7-7.7); Neutrophil % 73.5 % (47-70); Platelet Count 213 K/mm3 (150-450); RBC Distribution Width CV 14.1 % (11.6-14.6); RBC Distribution Width SD 46.2 fl (35.1-43.9); Red Blood Count 3.21 M/mm3 (4.2-5.4); White Blood Count 9.4 K/mm3 (4.4-11.0)
[2024-10-05 04:43] LABS: Partial Thromboplast Time 206.1 Seconds (24.1-36.2)
[2024-10-05 04:53] LABS: ALB/GLOB Ratio 0.9 RATIO (0.9-2.4); AST(SGOT) 34 U/L (15-37); Alanine Aminotransfer ALT/SGPT 45 U/L (13-56); Albumin, Serum 3.1 g/dL (3.2-5.0); Alkaline Phosphatase 79 U/L (45-117); Anion Gap 7 (5-15); BUN 36 mg/dL (7-18); BUN/Creat Ratio 26.9 RATIO (10-20); Calcium,Total 8.9 mg/dL (8.5-10.1); Chloride 106 mmol/L (98-107); Creatinine, Serum 1.34 mg/dL (0.55-1.02); EST Glomerular Filtration Rate 40 mL/min (>60); Est Glom Filt Rate - Afr Amer 48 mL/min (>60); Estimated Creatinine Clearance 26.72 ml/min; Globulin 3.4 g/dL (2.2-4.2); Glucose 109 mg/dL (74-106); Magnesium 1.9 mg/dL (1.6-2.6); Phosphorus 3.6 mg/dL (2.5-4.9); Potassium 3.6 mmol/L (3.5-5.1); Protein, Total 6.5 g/dL (6.4-8.2); Sodium Level 138 mmol/L (136-145)
[2024-10-05 08:11] LABS: Bedside Glucose 102 mg/dL (74-106)
[2024-10-05] MEDS: amLODIPine 5 MG Tablet PO (09:04)
[2024-10-05] MEDS: Pantoprazole Sodium 40 MG Tablet PO (09:04)
[2024-10-05] MEDS: Multivitamins,Therapeutic Tablet 1 TABLET PO (09:05)
--- NOTE | 2024-10-05 10:26 | PCM.PN.HOSP ---
Reason for Visit Reason for Visit: Diagnoses Acute respiratory failure with hypoxia (10/04/24) Shortness of breath (10/04/24) Other specified abnormal findings of blood chemistry (10/04/24) Objective Data Objective Data Vital Signs: Vital Signs Temp Pulse Resp BP Pulse Ox O2 Del Method O2 Flow Rate 97.8 F 65 15 144/47 H 94 Nasal Cannula 1 10/05/24 08:45 10/05/24 08:45 10/05/24 08:45 10/05/24 08:45 10/05/24 08:45 10/05/24 08:45 10/05/24 08:45 FiO2 50 10/04/24 16:37 Oxygen Flow Rate (L/min) 1 Oxygen Delivery Method Nasal Cannula Weight: 162 lb 0.636 oz Body Mass Index (BMI) 29.6 Intake & Output: Intake and Output for Last 24 Hours 10/03/24 10/04/24 10/05/24 23:59 23:59 23:59 Intake Total 480 / 480 61.65 / 61.65 Output Total 700 / 1560 860 / 860 Balance -220 / -1080 -798.35 / -798.35 Lab / Micro Data 10/05/24 03:55 10/05/24 03:55 Labs: Laboratory Results - last 24 hr 10/04/24 10:49: WBC 7.5, RBC 3.66 L, Hgb 11.0 L, Hct 34.0 L, MCV 92.9, MCH 30.1, MCHC 32.4, RDW Std Deviation 47.4 H, RDW Coeff of Najma 14.0, Plt Count 239, MPV 9.5, Immature Gran % (Auto) 0.300, Neut % (Auto) 70.1 H, Lymph % (Auto) 19.5, [place] % (Auto) 8.4, Eos % (Auto) 0.9, Baso % (Auto) 0.8, Absolute Neuts (auto) 5.2, Absolute Lymphs (auto) 1.46, Nucleated RBC % 0, Sodium 140 10/04/24 10:49: Sodium 139, Potassium 4.4 10/04/24 10:49: Potassium 4.4, Chloride 110 H 10/04/24 10:49: Chloride 110 H, Carbon Dioxide 26.0 10/04/24 10:49: Carbon Dioxide 24.0, Anion Gap 4 L 10/04/24 10:49: Anion Gap 5, BUN 29 H 10/04/24 10:49: BUN 29 H, Creatinine 1.21 H 10/04/24 10:49: Creatinine 1.21 H, Estim Creat Clear Calc 30.42 10/04/24 10:49: Estim Creat Clear Calc 30.42, Est GFR (MDRD) Af Amer 54 L 10/04/24 10:49: Est GFR (MDRD) Af Amer 54 L, Est GFR (MDRD) Non-Af 45 L 10/04/24 10:49: Est GFR (MDRD) Non-Af 45 L, BUN/Creatinine Ratio 24.0 H 10/04/24 10:49: BUN/Creatinine Ratio 24.0 H, Glucose 138 H 10/04/24 10:49: Glucose 143 H, Calcium 9.7 10/04/24 10:49: Calcium 9.9, Troponin I High Sens 15, B-Natriuretic Peptide 496.4 H 10/04/24 16:49: Troponin I High Sens 775 H* 10/04/24 17:32: POC Glucose 151 H 10/04/24 18:36: Sodium 139, Potassium 4.1, Chloride 108 H, Carbon Dioxide 24.0, Anion Gap 7, BUN 31 H, Creatinine 1.22 H, Estim Creat Clear Calc 29.34, Est GFR (MDRD) Af Amer 53 L, Est GFR (MDRD) Non-Af 44 L, BUN/Creatinine Ratio 25.4 H, Glucose 175 H, Calcium 9.4, Troponin I High Sens 1024 H* 10/04/24 21:15: PT 14.6, INR 1.1, APTT 25.2 10/04/24 21:45: POC Glucose 146 H 10/04/24 22:17: Sodium 139, Potassium 4.0, Chloride 108 H, Carbon Dioxide 24.0, Anion Gap 7, BUN 33 H, Creatinine 1.34 H, Estim Creat Clear Calc 26.72, Est GFR (MDRD) Af Amer 48 L, Est GFR (MDRD) Non-Af 40 L, BUN/Creatinine Ratio 24.6 H, Glucose 151 H, Calcium 9.0, Troponin I High Sens 1362 H* 10/05/24 03:55: WBC 9.4, RBC 3.21 L, Hgb 9.5 L, Hct 29.1 L, MCV 90.7, MCH 29.6, MCHC 32.6, RDW Std Deviation 46.2 H, RDW Coeff of Najma 14.1, Plt Count 213, MPV 9.4, Immature Gran % (Auto) 0.300, Neut % (Auto) 73.5 H, Lymph % (Auto) 15.8 L, [place] % (Auto) 9.4, Eos % (Auto) 0.6, Baso % (Auto) 0.4, Absolute Neuts (auto) 6.9, Absolute Lymphs (auto) 1.49, Nucleated RBC % 0, APTT 206.1 H*, Sodium 138, Potassium 3.6, Chloride 106, Carbon Dioxide 25.0, Anion Gap 7, BUN 36 H, Creatinine 1.34 H, Estim Creat Clear Calc 26.72, Est GFR (MDRD) Af Amer 48 L, Est GFR (MDRD) Non-Af 40 L, BUN/Creatinine Ratio 26.9 H, Glucose 109 H, Calcium 8.9, Phosphorus 3.6, Magnesium 1.9, Total Bilirubin 0.90, AST 34, ALT 45, Alkaline Phosphatase 79, Total Protein 6.5, Albumin 3.1 L, Globulin 3.4, Albumin/Globulin Ratio 0.9, TSH 1.050 10/05/24 05:57: POC Glucose 102 Micro: Microbiology 10/04/24 15:05 Mucosa - Nasopharyngeal Respiratory Panel (PCR) - Final 10/04/24 11:43 Mucosa - Nose SARS-CoV-2, Influenza & RSV (PCR) - Final ABG Data ABG results: ABG 10/04/24 14:21 Specimen Type ART Sample Site R Radial pH 7.41 Bicarbonate Actual 22.2 Total CO2 23 Base Excess -2 O2 Saturation 98 O2 % 50.0 ABG pCO2 34.7 L ABG pO2 105 H Jacinto Test Positive O2 Delivery Device BiPAP Vent Mode Not entered Clinical Comments 14 6 Radiography Diagnostic Testing: Radiology Impression Chest X-Ray 10/04/24 11:04 IMPRESSION: Findings in comparison with the CHF has described. Airspace disease in the left hemithorax suggestive of either superimposed infection versus atypical pulmonary edema. Electronically Signed: Kareem Viera MD at 12:25 EST , Physical Exam Narrative Seen and examined. Patient was admitted with left-sided chest discomfort that lasted for few minutes along with shortness of breath. Patient also had wheezing.Discussed with the patient's 2 daughter and son-in-law present in the room. Physical exam: General: Alert, Oriented x3, Cooperative. BMI 29.6 kg/m? HEENT: Atraumatic, PERRLA, EOMI, Normocephalic Oral: No Gingival or Mucosal Lesions/ Ulcerations Neck: Supple, No JVD, Negative Carotid Bruits Chest wall/Lungs: Air entry diminished in bilateral lung bases. Mild expiratory bilateral wheezing Cardiovascular: Regular rate, Regular Rhythm, Normal S1, Normal S2, no murmur gallop or rub Abdomen: Bowel Sounds Present, Soft, Non Tender, Non-Distended : No dysuria. No renal angle tenderness. No suprapubic tenderness. Extremities: Mild ankle bilateral 2+ edema, Capillary Refill Less than 3 Seconds Skin: No rashes, No breakdown Musculoskeletal: No Tenderness to Palpation of Joints or Extremities Neurological: Cranial nerves II-XII grossly intact, DTR 2+/4. No acute focal neurological deficit. Psych/Mental Status: Normal Affect, Appropriate. Assessment & Plan Assessment/Plan (1) Acute hypoxic respiratory failure: (2) Elevated brain natriuretic peptide (BNP) level: (3) Shortness of breath: PLAN: Plan 89-year-old female was admitted with shortness of breath, wheezing, respiratory distress and occasional left-sided chest heaviness. Her legs are also swollen. Denies any history of COPD or CHF Acute hypoxic respiratory failure: Patient is being admitted in PCU. Was admitted on BiPAP for respiratory distress. Initial ABG showed PaO2 105 on 50% FiO2 on BiPAP suggestive of high Aa gradient. Weaned down to 94% on room air. Chest x-ray individually reviewed and consistent with pulmonary edema. Heart failure core measures including intake and output, fluid restriction less than 1500 mL, daily weight monitoring, kidney and electrolytes monitoring. Patient on Lasix drip. Elevated BNP. Triple PCR for SARS-CoV-2, flu and RSV are negative. Respiratory panel negative Microbiology Past 72 Hours 10/04/24 15:05 Mucosa - Nasopharyngeal Respiratory Panel (PCR) - Final 10/04/24 11:43 Mucosa - Nose SARS-CoV-2, Influenza & RSV (PCR) - Final Laboratory Results 10/04/24 16:49: Troponin I High Sens 775 H* 10/04/24 17:32: POC Glucose 151 H 10/04/24 18:36: Sodium 139, Potassium 4.1, Chloride 108 H, Carbon Dioxide 24.0, Anion Gap 7, BUN 31 H, Creatinine 1.22 H, Estim Creat Clear Calc 29.34, Est GFR (MDRD) Af Amer 53 L, Est GFR (MDRD) Non-Af 44 L, BUN/Creatinine Ratio 25.4 H, Glucose 175 H, Calcium 9.4, Troponin I High Sens 1024 H* 10/04/24 21:15: PT 14.6, INR 1.1, APTT 25.2 10/04/24 21:45: POC Glucose 146 H 10/04/24 22:17: Sodium 139, Potassium 4.0, Chloride 108 H, Carbon Dioxide 24.0, Anion Gap 7, BUN 33 H, Creatinine 1.34 H, Estim Creat Clear Calc 26.72, Est GFR (MDRD) Af Amer 48 L, Est GFR (MDRD) Non-Af 40 L, BUN/Creatinine Ratio 24.6 H, Glucose 151 H, Calcium 9.0, Troponin I High Sens 1362 H* 10/05/24 03:55: WBC 9.4, RBC 3.21 L, Hgb 9.5 L, Hct 29.1 L, MCV 90.7, MCH 29.6, MCHC 32.6, RDW Std Deviation 46.2 H, RDW Coeff of Najma 14.1, Plt Count 213, MPV 9.4, Immature Gran % (Auto) 0.300, Neut % (Auto) 73.5 H, Lymph % (Auto) 15.8 L, [place] % (Auto) 9.4, Eos % (Auto) 0.6, Baso % (Auto) 0.4, Absolute Neuts (auto) 6.9, Absolute Lymphs (auto) 1.49, Nucleated RBC % 0, APTT 206.1 H*, Sodium 138, Potassium 3.6, Chloride 106, Carbon Dioxide 25.0, Anion Gap 7, BUN 36 H, Creatinine 1.34 H, Estim Creat Clear Calc 26.72, Est GFR (MDRD) Af Amer 48 L, Est GFR (MDRD) Non-Af 40 L, BUN/Creatinine Ratio 26.9 H, Glucose 109 H, Calcium 8.9, Phosphorus 3.6, Magnesium 1.9, Total Bilirubin 0.90, AST 34, ALT 45, Alkaline Phosphatase 79, Total Protein 6.5, Albumin 3.1 L, Globulin 3.4, Albumin/Globulin Ratio 0.9, TSH 1.050 10/05/24 05:57: POC Glucose 102 10/05/24 12:09: POC Glucose 158 H 10/05/24 12:15: APTT 58.6 H 2. High hs- troponin with concern of non-STEMI: Patient troponin progressively increased 15, 775, 1024 and 1362. Started on aspirin. Patient on IV heparin drip. 2D echo shows EF 65%, stage I diastolic function, mild MR mild TR RVSP 41 mmHg. Mild concentric LVH. Does not mention about wall motion abnormality. Assistant Offset Press Operator consulted. 3. CKD stage IIIb -Serum creatinine remained stable at 1.2. Repeat BUN/creatinine 36/1.34 slightly went up. Continue Lasix drip. Electrolytes in normal range. K low normal 3.6. Add low-dose spironolactone and carvedilol. -Lisinopril on hold for now due to diuretic use not because of CKD DM-2 -Oral hypoglycemic agents held while inpatient. Accu-Chek before meals and at bedtime with Humalog sliding scale coverage and hypoglycemia protocol. -Glucose reasonably controlled Essential hypertension/hyperlipidemia -Continue home atorvastatin -Hold home lisinopril for now given Lasix drip and monitor for need of reinitiation -Continue home amlodipine GERD -Continue home PPI Obesity -BMI 31.3 -Complicates treatment, prognosis, outcomes DVT prophylaxis -Subcu Lovenox daily CODE STATUS -DNR CCA okay for short-term intubation only per discussion with patient and family at the bedside -Patient is considering transitioning to no intubation Charges/Coding Visit Charges Inpatient E&M: 36167 Subs Hosp L2
[2024-10-05] MEDS: Aspirin E.C. 325 MG Tablet PO (10:59)
--- NOTE | 2024-10-05 11:00 | CASEMGMT ---
RN CM PROJECT CREW WORKER CM?to room to meet with patient for initial transition planning/care coordination assessment. RN CM?introduced self and role at [facility]. Pt voices understanding and consents to assessment?at this time. Pt resting in bed in no distress at this time. Several family members @ bedside and pt agreeable to them being present during assessment. Pt is A/O at this time and answers all questions appropriately. Care providers, pharmacy, and demographics verified/updated at this time. Strata:?1 PCP: BERTHA Sandoval Specialists: denies Preferred Pharmacy: [facility] Retail Insurance: [employer] Prescription Benefit: yes LNOK: 2 daughters, Deanna and Veronica. SonTip Living Arrangements: Pt lives alone in mobile home w/4 steps to enter. Independent w/ADL's, IADL's, and manages her own medications and appts. A friend comes every other Thurs to help w/some home tasks/cleaning. Dtr, Veronica, lives in [place] and has been staying w/pt for the past month. She was planning on returning to [place] today, but states will stay longer, if needed. DtrDeanna, and sonTip live about 2 miles away from pt and take turns checking on pt, but someone does check on her daily. Transportation:Pt states drives self and states no transportation concerns at this time. DME:States has the following DME: shower chair, cane, functioning glucometer w/supplies. She has a walker available, but does not use. Pt does not have a pulse ox. RN CM recommended they get one and made aware of places this could be purchased. Family states they will look into getting one for pt. Pt does not have home O2 and states would really prefer not to go home w/O2. She and family state, if it is necessary, to use [employer]. Discussed home O2 set-up process. Family interested in medical alert info. This was provided at this time. Pt and family state no need for further DME at this time. HHC/SNF: [facility] in 2014. No hx of HHC. Pt declines wanting HHC. Pt states has [employer] and goes to [facility] therapy for exercise 3 x's/week. She denies wanting script for OP therapy. Pt wishes to return home and states has no concerns with going home at time of discharge. CM?to follow for home oxygen needs and any further discharge planning/needs. Pt voices no further concerns/needs at this time. Advised pt to ask for CM?if any further questions/concerns/needs arise. Voices understanding. PLAN: Home. Follow for possible home O2. Aldo LOCK RN CM
[2024-10-05 12:26] LABS: Bedside Glucose 158 mg/dL (74-106)
[2024-10-05 12:41] LABS: Partial Thromboplast Time 58.6 Seconds (24.1-36.2)
--- NOTE | 2024-10-05 16:10 | CHAPLAIN ---
Type of Pastoral Visit _x__ Initial Visit ___ Follow-up Visit ___ On-call Visit ___ General Patient Visit ___ Spiritual Assessment ___ Family Conference ___ Bereavement ___ Rapid Response ___ Code Blue ___ Other (describe below) Pastoral Care Referral From _x__ Patient ___ Family ___ Nurse ___ Physician ___ Open Die Inspector ___ Synthetic Plasterer ___ Other (describe below) Sacrament/Intervention _x__ Active listening ___ Anointing ___ Denominational ___ Bereavement ___ Communion ___ Josefina exploration ___ ___ Life review _x__ Prayer ___ Reconciliation ___ Sacrament of Sick ___ Supportive presence ___ Wedding ___ Other (describe below) Pastoral Comments patient gives information on her situation; pt states that she is fine and not worried although needing to find out results of some tests yet; pt welcomes a prayer for support
[2024-10-05] MEDS: Spironolactone 25 MG Tablet 12.5 MG PO (17:56)
[2024-10-05] MEDS: Carvedilol 3.125 MG TABLET PO (17:56)
[2024-10-05 21:05] LABS: Partial Thromboplast Time 60.5 Seconds (24.1-36.2)
[2024-10-05] MEDS: Atorvastatin Calcium 80 MG Tablet PO (21:08)
[2024-10-05 21:32] LABS: Bedside Glucose 171 mg/dL (74-106)
[2024-10-06] VITALS (12 sets, daily range): BP systolic 114–152; BP diastolic 39–60; PULSE 62–72; RESP 15–18; TEMP 35.9–37; O2SAT 89–97; BMI 29.6
[2024-10-06 03:16] LABS: Absolute Lymphocyte Count 1.46 X10^3/uL (0.83-4.51); Absolute Neutrophil Count 5.3 X10^3/uL (2.0-7.7); Basophil# 0.04 X10^3/uL; Basophil% 0.5 % (0-1); Eosinophils% 1.3 % (0-5); Hematocrit 29.6 % (37-47); Hemoglobin 9.6 g/dL (12.0-15.0); Lymphocyte # 1.46 X10^3/ul (0.83-4.51); Lymphocyte % 19.2 % (19-41); Mean Corp Hgb Conc 32.4 g/dL (32-36); Mean Corpuscular Hgb 29.5 pg (27.0-32.0); Mean Corpuscular Volume 91.1 fL (81-99); Mean Platelet Vol. 9.8 fl (6.2-12.0); Monocyte# 0.71 X10^3/uL; Monocyte% 9.3 % (0-10); NRBC Flagged by Analyzer 0 % (0-5); Neutrophil # 5.27 X10^3/uL (2.7-7.7); Neutrophil % 69.4 % (47-70); Platelet Count 218 K/mm3 (150-450); RBC Distribution Width CV 14.1 % (11.6-14.6); RBC Distribution Width SD 46.4 fl (35.1-43.9); Red Blood Count 3.25 M/mm3 (4.2-5.4); White Blood Count 7.6 K/mm3 (4.4-11.0)
[2024-10-06 03:34] LABS: Anion Gap 8 (5-15); BUN 46 mg/dL (7-18); BUN/Creat Ratio 27.5 RATIO (10-20); Chloride 102 mmol/L (98-107); Creatinine, Serum 1.67 mg/dL (0.55-1.02); EST Glomerular Filtration Rate 31 mL/min (>60); Est Glom Filt Rate - Afr Amer 37 mL/min (>60); Estimated Creatinine Clearance 21.44 ml/min; Glucose 142 mg/dL (74-106); Potassium 3.5 mmol/L (3.5-5.1); Sodium Level 138 mmol/L (136-145)
[2024-10-06 04:02] LABS: Partial Thromboplast Time 58.2 Seconds (24.1-36.2)
[2024-10-06] MEDS: Furosemide 500 MG in Empty Viaflex 50 mL 1 EACH CONT INF (07:13)
--- NOTE | 2024-10-06 08:35 | CON.PCM.CA_ITS ---
Assessment & Plan Assessment/Plan (1) NSTEMI (non-ST elevated myocardial infarction): PLAN: Presently asymptomatic. Normal LV systolic function on echocardiogram. Continue aspirin. Start on clopidogrel. Calcium channel blockers. Beta- blockers. Further course of action discussed in detail with the patient and her daughter. Coronary angiography with possible revascularization versus medical management discussed. Risks benefits explained. They understand these and wished to pursue noninvasive management strategy if possible. Agree with a Lexiscan stress Myoview. Further course of action in light of results of the stress test. (2) Acute diastolic (congestive) heart failure: PLAN: Furosemide. Start on SGLT2 inhibitors. Beta-blockers. (3) HTN (hypertension): PLAN: Beta-blockers, furosemide, calcium channel stalin. (4) Dyslipidemia: PLAN: Atorvastatin. (5) Type II diabetes mellitus: PLAN: As per internal medicine. HPI Consult Data Date of Consult: 10/06/24 HPI Narrative Reason for Consultation: NSTEMI HPI Narrative: This 89-year-old lady has past medical history significant for hypertension, diabetes mellitus and dyslipidemia. Presented to the hospital with complaints of acute onset dyspnea. According to her, she also had some anterior chest pressure with that. ECG was unremarkable. Her first troponin was within normal limits however serial troponins trend positive, ruling her in for NSTEMI. She has had an echocardiogram done yesterday. It showed normal left ventricular systolic function. Stage I diastolic dysfunction was noted. Since her admission to the hospital, patient has not had any further chest pains or shortness of breath. [facility] Medical History Anemia Diabetes Non-smoker Skin cancer Dehydration GERD (gastroesophageal reflux disease) Acute blood loss anemia Closed left hip fracture HTN (hypertension) Hypercholesteremia Type II diabetes mellitus Home Medications ?Medication ?Instructions ?Recorded ?Last Taken ?Type atorvastatin 80 mg tablet 80 mg PO QHS 08/25/13 Unknown History glimepiride 2 mg tablet 4 mg PO DAILY 08/25/13 02/08/15 07:00 History lisinopril 40 mg tablet 40 mg PO DAILY 08/25/13 02/14/16 05:00 History multivitamin with folic acid 400 1 tab PO DAILYCM #30 tabs 02/11/15 Unknown Rx mcg tablet amlodipine 5 mg tablet 5 mg PO DAILY 04/10/19 Unknown History Poglitasone 15 mg PO DAILY 05/23/19 Unknown History omeprazole 40 mg capsule,delayed 40 mg PO DAILY 05/23/19 Unknown History release blood sugar diagnostic (True 10/04/24 Unknown History Metrix Glucose Test Strip) Allergy/AdvReac Type Severity Reaction Status Date / Time metformin Allergy Hives Verified 05/23/19 08:24 morphine AdvReac Nausea Verified 05/23/19 08:24 oxycodone (Oxycodone) AdvReac Nausea Verified 05/23/19 08:24 Family History Sister Breast cancer Colon cancer Diabetes Uncle Heart disease Brother Kidney disease Surgical History History of appendectomy History of cholecystectomy History of hip replacement History of shoulder replacement S/P ORIF (open reduction internal fixation) fracture Social History household members: none current occupational status: retired Smoking Status: Never smoker alcohol intake: never substance use type: does not use Physical Exam Narrative Comfortable. No apparent distress. No JVD. Heart sounds 1 and 2 noted. Chest clear to auscultation bilaterally. Alert oriented x 3. Trace bilateral ankle edema noted. Risk Stratification Risk Stratification Applicable: No Objective Data Vital Signs: Vital Signs Temp Pulse Resp BP Pulse Ox O2 Del Method O2 Flow Rate 98.6 F 66 16 119/39 L 89 Room Air 2 10/06/24 03:30 10/06/24 03:30 10/06/24 03:30 10/06/24 03:30 10/06/24 03:30 10/06/24 04:32 10/06/24 03:30 FiO2 50 10/04/24 16:37 Oxygen Flow Rate (L/min) 2 Oxygen Delivery Method Room Air Weight: 162 lb 0.636 oz Body Mass Index (BMI) 29.6 Intake & Output: Intake and Output for Last 24 Hours 10/04/24 10/05/24 10/06/24 23:59 23:59 23:59 Intake Total 480 / 480 705.35 / 705.35 315.77 / 315.77 Output Total 700 / 1560 1260 / 1260 Balance -220 / -1080 -554.65 / -554.65 315.77 / 315.77 Lab / Micro Data 10/06/24 03:03 10/06/24 03:03 Labs: Laboratory Results - last 24 hr 10/05/24 12:09: POC Glucose 158 H 10/05/24 12:15: APTT 58.6 H 10/05/24 20:43: APTT 60.5 H 10/05/24 21:04: POC Glucose 171 H 10/06/24 03:03: WBC 7.6, RBC 3.25 L, Hgb 9.6 L, Hct 29.6 L, MCV 91.1, MCH 29.5, MCHC 32.4, RDW Std Deviation 46.4 H, RDW Coeff of Najma 14.1, Plt Count 218, MPV 9.8, Immature Gran % (Auto) 0.300, Neut % (Auto) 69.4, Lymph % (Auto) 19.2, [place] % (Auto) 9.3, Eos % (Auto) 1.3, Baso % (Auto) 0.5, Absolute Neuts (auto) 5.3, Absolute Lymphs (auto) 1.46, Nucleated RBC % 0, APTT 58.2 H, Sodium 138, Potassium 3.5, Chloride 102, Carbon Dioxide 28.0, Anion Gap 8, BUN 46 H, C reatinine 1.67 H, Estim Creat Clear Calc 21.44, Est GFR (MDRD) Af Amer 37 L, Est GFR (MDRD) Non-Af 31 L, BUN/Creatinine Ratio 27.5 H, Glucose 142 H, Calcium 9.0 Rhythm Strip Rhythm Strip: Sinus Rhythm Cardiology Labs/Tests 10/05/24 12:15: APTT 58.6 H 10/05/24 20:43: APTT 60.5 H 10/06/24 03:03: WBC 7.6, RBC 3.25 L, Hgb 9.6 L, Hct 29.6 L, MCV 91.1, MCH 29.5, MCHC 32.4, Plt Count 218, MPV 9.8, Immature Gran % (Auto) 0.300, Neut % (Auto) 69.4, Lymph % (Auto) 19.2, [place] % (Auto) 9.3, Eos % (Auto) 1.3, Baso % (Auto) 0.5, Absolute Neuts (auto) 5.3, Nucleated RBC % 0, APTT 58.2 H, Sodium 138, Potassium 3.5, Chloride 102, Carbon Dioxide 28.0, Anion Gap 8, BUN 46 H, C reatinine 1.67 H, Est GFR (MDRD) Af Amer 37 L, Est GFR (MDRD) Non-Af 31 L, B UN/Creatinine Ratio 27.5 H, Glucose 142 H, Calcium 9.0 Rhythm: Normal sinus rhythm. EKG: Sinus rhythm. ECHO: LVEF 65%. Stage I diastolic dysfunction. Stress Test: Cardiac Cath: PCI: CT Surgery: Holter monitor: EPS: PPM: CXR: Chest CT Scan: Radiography Diagnostic Testing: Radiology Impression Echocardiogram 10/04/24 16:27 Interpretation Summary Mild concentric left ventricular hypertrophy. The left ventricular ejection fraction is 65 %. Stage 1 diastolic dysfunction. Severe mitral annular calcification. Mild (1+) mitral valve insufficiency. Mild tricuspid valve insufficiency. Right ventricular systolic pressure estimated to be 41 mmHg. Mild focal aortic valve calcification. Ordering Physician: Jenifer Valente Performed By: Gricelda Cuba RDCS
--- NOTE | 2024-10-06 09:16 | PCM.PN.HOSP ---
Reason for Visit Reason for Visit: Diagnoses Type 2 diabetes mellitus without complications (10/04/24) Hyperlipidemia, unspecified (10/04/24) Essential (primary) hypertension (10/04/24) Non-ST elevation (NSTEMI) myocardial infarction (10/04/24) Acute diastolic (congestive) heart failure (10/04/24) Acute respiratory failure with hypoxia (10/04/24) Shortness of breath (10/04/24) Other specified abnormal findings of blood chemistry (10/04/24) Objective Data Objective Data Vital Signs: Vital Signs Temp Pulse Resp BP Pulse Ox O2 Del Method O2 Flow Rate 97.5 F L 72 18 152/54 H 94 Room Air 2 10/06/24 08:37 10/06/24 08:37 10/06/24 08:37 10/06/24 08:37 10/06/24 08:37 10/06/24 08:37 10/06/24 03:30 FiO2 50 10/04/24 16:37 Oxygen Flow Rate (L/min) 2 Oxygen Delivery Method Room Air Weight: 162 lb 0.636 oz Body Mass Index (BMI) 29.6 Intake & Output: Intake and Output for Last 24 Hours 10/04/24 10/05/24 10/06/24 23:59 23:59 23:59 Intake Total 480 / 480 705.35 / 705.35 345.67 / 345.67 Output Total 700 / 1560 1260 / 1260 Balance -220 / -1080 -554.65 / -554.65 345.67 / 345.67 Lab / Micro Data 10/06/24 03:03 10/06/24 03:03 Labs: Laboratory Results - last 24 hr 10/05/24 12:09: POC Glucose 158 H 10/05/24 12:15: APTT 58.6 H 10/05/24 20:43: APTT 60.5 H 10/05/24 21:04: POC Glucose 171 H 10/06/24 03:03: WBC 7.6, RBC 3.25 L, Hgb 9.6 L, Hct 29.6 L, MCV 91.1, MCH 29.5, MCHC 32.4, RDW Std Deviation 46.4 H, RDW Coeff of Najma 14.1, Plt Count 218, MPV 9.8, Immature Gran % (Auto) 0.300, Neut % (Auto) 69.4, Lymph % (Auto) 19.2, Floyd % (Auto) 9.3, Eos % (Auto) 1.3, Baso % (Auto) 0.5, Absolute Neuts (auto) 5.3, Absolute Lymphs (auto) 1.46, Nucleated RBC % 0, APTT 58.2 H, Sodium 138, Potassium 3.5, Chloride 102, Carbon Dioxide 28.0, Anion Gap 8, BUN 46 H, Creatinine 1.67 H, Estim Creat Clear Calc 21.44, Est GFR (MDRD) Af Amer 37 L, Est GFR (MDRD) Non-Af 31 L, BUN/Creatinine Ratio 27.5 H, Glucose 142 H, Calcium 9.0 Micro: Microbiology 10/04/24 15:05 Mucosa - Nasopharyngeal Respiratory Panel (PCR) - Final 10/04/24 11:43 Mucosa - Nose SARS-CoV-2, Influenza & RSV (PCR) - Final Radiography Diagnostic Testing: Radiology Impression Echocardiogram 10/04/24 16:27 Interpretation Summary Mild concentric left ventricular hypertrophy. The left ventricular ejection fraction is 65 %. Stage 1 diastolic dysfunction. Severe mitral annular calcification. Mild (1+) mitral valve insufficiency. Mild tricuspid valve insufficiency. Right ventricular systolic pressure estimated to be 41 mmHg. Mild focal aortic valve calcification. Ordering Physician: Jenifer Valente Performed By: Gricelda Cuba MAKAYLA Rhythm Strip Rhythm Strip: Sinus Rhythm Physical Exam Narrative Seen and examined. Patient went for stress test today. 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 Patient was admitted with left-sided chest discomfort that lasted for few minutes along with shortness of breath. Patient also had wheezing.Discussed with the patient's 2 daughter and son-in-law present in the room. Physical exam: General: Alert, Oriented x3, Cooperative. BMI 29.6 kg/m? HEENT: Atraumatic, PERRLA, EOMI, Normocephalic Oral: No Gingival or Mucosal Lesions/ Ulcerations Neck: Supple, No JVD, Negative Carotid Bruits Chest wall/Lungs: Air entry diminished in bilateral lung bases. Cardiovascular: Regular rate, Regular Rhythm, Normal S1, Normal S2, no murmur gallop or rub Abdomen: Bowel Sounds Present, Soft, Non Tender, Non-Distended : No dysuria. No renal angle tenderness. No suprapubic tenderness. Extremities: Mild ankle bilateral 2+ edema, Capillary Refill Less than 3 Seconds Skin: No rashes, No breakdown Musculoskeletal: No Tenderness to Palpation of Joints or Extremities Neurological: Cranial nerves II-XII grossly intact, DTR 2+/4. No acute focal neurological deficit. Psych/Mental Status: Normal Affect, Appropriate. Assessment & Plan Assessment/Plan (1) Acute hypoxic respiratory failure: (2) Elevated brain natriuretic peptide (BNP) level: (3) Shortness of breath: PLAN: Plan 89-year-old female was admitted with shortness of breath, wheezing, respiratory distress and occasional left-sided chest heaviness. Her legs are also swollen. Denies any history of COPD or CHF 1. Acute hypoxic respiratory failure: Patient is being admitted in PCU. Was admitted on BiPAP for respiratory distress. Initial ABG showed PaO2 105 on 50% FiO2 on BiPAP suggestive of high Aa gradient. Weaned down to 94% on room air. Chest x-ray individually reviewed and consistent with pulmonary edema. Heart failure core measures including intake and output, fluid restriction less than 1500 mL, daily weight monitoring, kidney and electrolytes monitoring. Patient on Lasix drip. Elevated BNP. Triple PCR for SARS-CoV-2, flu and RSV are negative. Respiratory panel negative 09/26: Pulse ox varies 96% on room air.Patient is not short of breath. 2. High hs- troponin with concern of non-STEMI: Patient troponin progressively increased 15, 775, 1024 and 1362. Started on aspirin. Patient on IV heparin drip. 2D echo shows EF 65%, stage I diastolic function, mild MR mild TR RVSP 41 mmHg. Mild concentric LVH. Does not mention about wall motion abnormality. Biomedical Engineering Technologist consulted. 10/06: Elevated D-dimer 0.89 but age-adjusted is also 0.89 therefore normal for age. She denies prior history of DVT/PE. IV contrast is contraindicated. Venous duplex ordered to rule out DVT Pharmacological nuclear stress test shows mildly reduced perfusion of anterior wall and apex, post pharmacological stress suggestive of ischemia. Subsequently diagnostic cath was done which shows EF 65%, left main tubular 50% ostial, 50% tubular calcified mid LAD. Tubular calcified 50% and mid RCA. Medical management was recommended. 3. 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 Repeat BUN/creatinine 36/1.34 slightly went up. Continue Lasix drip. Electrolytes in normal range. K low normal 3.6. Add low-dose spironolactone and carvedilol. -Lisinopril on hold for now due to diuretic use not because of CKD 10/06: Her creatinine went up from 1.34-1.67. Probably due to diuretic therefore furosemide spironolactone discontinued. K3.5 therefore 1 dose KCl 40 mEq. DM-2 -Oral hypoglycemic agents held while inpatient. Accu-Chek before meals and at bedtime with Humalog sliding scale coverage and hypoglycemia protocol. -Glucose reasonably controlled 10/06: Glucose 142. Essential hypertension/hyperlipidemia -Continue home atorvastatin -Hold home lisinopril for now given Lasix drip and monitor for need of reinitiation -Continue home amlodipine GERD -Continue home PPI Obesity -BMI 31.3 -Complicates treatment, prognosis, outcomes DVT prophylaxis -Subcu Lovenox daily CODE STATUS -DNR CCA okay for short-term intubation only per discussion with patient and family at the bedside -Patient is considering transitioning to no intubation Charges/Coding Visit Charges Inpatient E&M: 81184 Subs Hosp L2
[2024-10-06 09:40] LABS: Partial Thromboplast Time 59.4 Seconds (24.1-36.2)
[2024-10-06 09:43] LABS: D-Dimer Quantitative (DVT/PE) 0.89 FEU/ug/m (0.27-0.49)
[2024-10-06] MEDS: Aspirin E.C. 81 MG Tablet PO (10:57)
[2024-10-06] MEDS: Potassium Chloride Oral Tablet 20 MEQ 40 MEQ PO (10:57)
[2024-10-06] MEDS: Carvedilol 3.125 MG TABLET PO ×2 (10:57→22:54)
[2024-10-06] MEDS: Clopidogrel Bisulfate 300 MG Tablet PO (10:57)
[2024-10-06] MEDS: Multivitamins,Therapeutic Tablet 1 TABLET PO (10:57)
[2024-10-06] MEDS: amLODIPine 5 MG Tablet PO (10:57)
[2024-10-06] MEDS: Pantoprazole Sodium 40 MG Tablet PO (10:57)
--- NOTE | 2024-10-06 11:10 | STRESSREP ---
Stress Test Report Date: 10/06/2024 Procedure: Pharmacologic stress nuclear imaging study Indications: NSTEMI Consent: Per the patient Procedure: The patient underwent pharmacologic (Regadenoson 0.4mg ) evaluation with a peak heart rate of 90 beats per minute (68%predicted maximal heart rate) and a peak blood pressure of 132/58 mmHg. The baseline ECG demonstrated sinus rhythm with changes consistent with anterolateral ischemia. The peak pharmacologic ECG was nondiagnostic secondary to baseline abnormality. There were no cardiac dysrhythmias pretest, during pharmacologic infusion, or recovery. There was no complaint of chest discomfort during pharmacologic infusion or recovery. The patient was injected with 11.3 millicuries of technetium 99m Cardiolite and subsequently rest SPECT Cardiolite nuclear imaging was obtained in the horizontal long, vertical long, and short axis views. The patient underwent pharmacologic (Regadenoson) evaluation. The patient was injected with 34.5 millicuries of technetium 99m Cardiolite and subsequently stress SPECT Cardiolite nuclear imaging was obtained in the horizontal long, vertical long, and short axis views. A gated Cardiolite study at peak stress was obtained. The examination was stopped secondary to completion of protocol. Rest and stress SPECT Cardiolite nuclear imaging status post realignment, normalization, and attenuation correction demonstrate mildly reduced perfusion of the anterior wall and apex post pharmacological stress, suggestive of ischemia. There is end systolic thickening and brightening. The gated Cardiolite study demonstrates myocardial thickening and inward wall motion. The reported LVEF is 50%. Impression: 1. Pharmacologic (Regadenoson) evaluation 2. Peak pharmacologic ECG nondiagnostic. 3. There were no cardiac dysrhythmias pretest, during pharmacologic infusion, or recovery. 5. Mildly reduced perfusion of the anterior wall and apex post pharmacological stress, suggestive of ischemia. 6. The gated Cardiolite study reports an LVEF of 50%. This note was generated with [employer] Visionation software. It may contain incorrect words, spelling, and punctuation that were not noted in checking the note before signing.
--- NOTE | 2024-10-06 11:38 | PN_ITS ---
Progress Note Abnormal pharmacological nuclear stress test. Discussed with patient and her family. They wish to proceed with coronary angiography with possible r evascularization. Aware of risks benefits.
--- NOTE | 2024-10-06 12:29 | VDLE_ITS ---
Reason For Study: Elevated D Dimer RIGHT LEFT GSV is normal. GSV is normal. CFV is compressible, spontaneous, phasic, CFV is compressible, spontaneous, phasic, competent and demonstrates normal competent, and demonstrates normal augmentation. augmentation. FV is compressible, spontaneous, phasic, FV is compressible, spontaneous, phasic, competent and demonstrates normal competent and demonstrates normal augmentation. augmentation. POP V is compressible, spontaneous, phasic, POP V is compressible, spontaneous, phasic, competent and demonstrates normal competent and demonstrates normal augmentation. augmentation. T/P Trunk is compressible. T/P Trunk is compressible. PTV is compressible. PTV is compressible. RT PerV is compressible. LT PerV is compressible. Procedure Exam performed portable in patient room. This is a venous duplex using B-mode, color flow and spectral Doppler. The exam was diagnostic. A preliminary report was called and/or faxed to Dr. Bethea. VL/Venous Duplex US - Satya Extrem Interpretation Summary Deep veins of the lower extremities are bilaterally patent and compressible seg mentally. There is no evidence of deep vein thrombosis on either side. Valvular competence appears in tact within the proximal deep venous systems bilaterally. The great saphenous veins appear bila terally patent and compressible segmentally. Ordering Physician: Tone Bethea Referring Physician: Treva Sandoval Performed By: Silvio Reynaga, RVT
--- NOTE | 2024-10-06 12:35 | CL.D_ITS ---
Patient Name: MARIAM DUEÑAS Study Date: 10/06/2024 Performing: Jonah Bethea MD Ht: 62 inches 157.48 cm : 1935 Wt: 162.04 lbs 73.5 kg Age: 89 Gender: female BSA: 1.75 PROCEDURE(S) PERFORMED DC01-(01628)LHC/COR/LV CLINICAL PROFILE AND INDICATIONS Indications: ACS > 24 hrs Heart Failure: None CAD Presentations: Non-STEMI. Symptom onset Date/Time: 10/04/2024 Time Not Available CONCLUSIONS 50% Mid LAD, 50% Mid RCA LVEF 65% RECOMMENDATIONS Medical therapy Risk factor modification DESCRIPTION OF PROCEDURE The patient arrived to the procedure lab. The risks and benefits of the procedure as well as a full description of our services here and current unavailability of surgical backup were fully explained to the patient and/or their significant other prior to the catheterization. The Timeout was completed, verifying the correct patient and procedure. The patient's procedural site was prepped and draped in the usual fashion. Local anesthetic was given subcutaneously to right radial region with Lidocaine 2%. Using a modified Seldinger technique, arterial access was obtained via the right radial artery, a 6Fr sheath was inserted. Left Coronary Artery selective angiography was performed in multiple views using a 5 Fr. 4.0 [place] catheter. Right Coronary Artery selective angiography was then performed in multiple views using a 5 Fr. 4.0 [place] catheter. Left Ventriculography was performed in DAVID projection using a 5 Fr. Pig[place] catheter. LV to AO pullback pressures were then recorded.The arterial sheath was pulled and a TR Band was applied for hemostasis CORONARY ANGIOGRAPHY DOMINANCE: Right Dominant LEFT HEART ASSESSMENT Left Ventricular Ejection Fraction: by LV Gram 65 % LVEDP: 18 mmHg LEFT MAIN: Tubular 50% Ostial lesion in LMCA Tubular 30% Ostial lesion in LMCA LEFT ANTERIOR DESCENDING ARTERY: LAD: Tubular Calcified 50% Mid lesion in LAD RIGHT CORONARY ARTERY: RCA: Tubular Calcified 50% Mid lesion in RCA COMPLICATIONS No Complications PROCEDURE MEDICATIONS Versed .5 mg IV Fentanyl 25 mcg IV Oxygen: 2 L/min via nasal cannula Heparin given IA 10/06/2024 12:10:20 Verapamil 2.5mg, Ntg 200mcgs, 2000 units of Heparin given IA 10/06/2024 12:10:20 SUMMARY OF HEMODYNAMIC DATA Time AIR REST ECG 11:55:40 AO 111/56 (79) SA 12:10:40 LV 160/1, 14 12:16:03 LV 162/2, 18 12:16:12 LV 143/11, 20 12:20:09 LVp 146/17, 28 12:20:24 AOp 144/57 (91) 12:20:31 12:32:43 Signed By Jonah Bethea MD On 10/06/2024 12:34:30 Jonah Bethea MD
[2024-10-06] MEDS: Empagliflozin 10 MG Tablet PO (13:07)
[2024-10-06 13:36] LABS: Cholesterol 123 mg/dL (200); High Density Lipoprotein 47 mg/dL; Triglycerides 79 mg/dL; Very Low Density Lipoprotein 16 mg/dL (5-40)
[2024-10-06] MEDS: 0.9% Normal Saline (1000mL) 1,000 ML 75 ML IV (14:32)
[2024-10-06] MEDS: Insulin Lispro 100 UNIT/ML INSULN.PEN SC (17:04)
--- NOTE | 2024-10-06 18:28 | NURSING ---
Reviewed and agreed on charting with Sree Thao RN
[2024-10-06] MEDS: Atorvastatin Calcium 80 MG Tablet PO (22:54)
[2024-10-07 04:00] VITALS: BP 109/34; PULSE 72; RESP 16; TEMP 36.3; O2SAT 93
[2024-10-07 04:48] VITALS: BMI 28.7
[2024-10-07 06:43] LABS: Absolute Lymphocyte Count 1.32 X10^3/uL (0.83-4.51); Absolute Neutrophil Count 4.7 X10^3/uL (2.0-7.7); Basophil# 0.03 X10^3/uL; Basophil% 0.4 % (0-1); Eosinophil# 0.15 X10^3/uL; Eosinophils% 2.1 % (0-5); Hematocrit 29.2 % (37-47); Hemoglobin 9.4 g/dL (12.0-15.0); Lymphocyte # 1.32 X10^3/ul (0.83-4.51); Lymphocyte % 18.6 % (19-41); Mean Corp Hgb Conc 32.2 g/dL (32-36); Mean Corpuscular Hgb 29.3 pg (27.0-32.0); Mean Platelet Vol. 9.7 fl (6.2-12.0); Monocyte# 0.83 X10^3/uL; Monocyte% 11.7 % (0-10); NRBC Flagged by Analyzer 0 % (0-5); Neutrophil # 4.74 X10^3/uL (2.7-7.7); Neutrophil % 66.9 % (47-70); Platelet Count 206 K/mm3 (150-450); RBC Distribution Width CV 14.2 % (11.6-14.6); RBC Distribution Width SD 47.3 fl (35.1-43.9); Red Blood Count 3.21 M/mm3 (4.2-5.4); White Blood Count 7.1 K/mm3 (4.4-11.0)
[2024-10-07 07:15] LABS: Bedside Glucose 125 mg/dL (74-106)
[2024-10-07 07:31] LABS: Anion Gap 6 (5-15); BUN 42 mg/dL (7-18); BUN/Creat Ratio 23.3 RATIO (10-20); Calcium,Total 8.6 mg/dL (8.5-10.1); Chloride 104 mmol/L (98-107); EST Glomerular Filtration Rate 28 mL/min (>60); Est Glom Filt Rate - Afr Amer 34 mL/min (>60); Estimated Creatinine Clearance 19.58 ml/min; Glucose 124 mg/dL (74-106); Potassium 3.8 mmol/L (3.5-5.1); Sodium Level 139 mmol/L (136-145)
--- NOTE | 2024-10-07 09:08 | US_ITS ---
STUDY: RENAL ULTRASOUND - COMPLETE REASON FOR EXAM: Female, 89 years old. Elevated BUN/creatinine TECHNIQUE: Ultrasound evaluation of the kidneys was performed with real-time and static montalvo-scale imaging. COMPARISON: None. FINDINGS: RIGHT KIDNEY: Normal location of the right kidney, which is normal in size. The right kidney measures 9.2 x 4.7 x 5.1 cm. There is a normal cortex of the right kidney. The renal cortex measures 1.2 cm. There is no right renal mass or cyst. There are no right renal calculi. There is no right hydronephrosis. DISTAL RIGHT URETER: There is non-visualization of the distal right ureter. There is no demonstrated right ureterovesical junction calculus. There is a visualized right ureteral jet. LEFT KIDNEY: Normal location of the left kidney, which is normal in size. The left kidney measures 10.4 x 4.4 x 4.7 cm. There is a normal cortex of the left kidney. The renal cortex measures 1.4 cm. There is no left renal mass or cyst. There are no left renal calculi. There is no left hydronephrosis. DISTAL LEFT URETER: There is non-visualization of the distal left ureter. There is no demonstrated left ureterovesical junction calculus. There is a visualized left ureteral jet. AORTA: There is no elongation or tortuosity of the abdominal aorta. I.V.C.: The IVC is patent. BLADDER: The distended urinary bladder has a volume of 157 ml. The empty urinary bladder has a volume of less than 10 ml. There is a normal wall thickness of the distended urinary bladder. There is no demonstrated mass within the urinary bladder. There are no demonstrated bladder calculi. US/Kidney and Bladder IMPRESSION: No suspicious sonographic findings Electronically Signed: Adam Correia MD at 8:15 EST ,
[2024-10-07 09:34] VITALS: BP 135/48; PULSE 74; RESP 15; TEMP 36.6; O2SAT 96
[2024-10-07] MEDS: amLODIPine 5 MG Tablet PO (09:40)
[2024-10-07] MEDS: Multivitamins,Therapeutic Tablet 1 TABLET PO (09:40)
[2024-10-07] MEDS: Pantoprazole Sodium 40 MG Tablet PO (09:40)
[2024-10-07] MEDS: Clopidogrel Bisulfate 75 MG Tablet PO (09:40)
[2024-10-07] MEDS: Empagliflozin 10 MG Tablet PO (09:41)
[2024-10-07] MEDS: Aspirin E.C. 81 MG Tablet PO (09:41)
[2024-10-07] MEDS: Carvedilol 3.125 MG TABLET PO ×2 (09:41→19:56)
[2024-10-07] MEDS: 0.9% Normal Saline (1000mL) 1,000 ML 50 ML IV (09:45)
--- NOTE | 2024-10-07 11:23 | PCM.CONS.R ---
Assessment & Plan Assessment/Plan (1) NEELIMA (acute kidney injury): (2) Chronic kidney disease, stage 3b: PLAN: Plan Assessment/Plan: The patient is a 89-year-old female with past history of chronic kidney disease stage G3a, type 2 diabetes mellitus, hypertension, hyperlipidemia, and GERD. Patient presented to the hospital on 10/04/2024 with 2-day history of dyspnea. The patient was admitted for treatment of acute hypoxic respiratory failure. Patient initially required NIPPV, and she has been treated with furosemide for decongestion of pulmonary edema. Nephrology is asked to the patient because of NEELIMA and CKD. Acute kidney injury on chronic kidney disease stage G3b. Baseline serum creatinine appears to be around 1.20 mg/dL. Serum creatinine has increased up to 1.80 mg/dL today on 10/07/2024. The patient status post cardiac catheterization on 10/06/2024. She has also been diuresed to treat pulmonary edema. There has been no prolonged periods of hypotension on review of vital signs. I suspect that the patient has NEELIMA from cardiorenal syndrome. However, patient appears to be compensated on my exam today. Her lungs are clear with no significant edema to lower extremities. Therefore, the rise in serum creatinine could also be from recent aggressive diuresis. I will check urinalysis, urine indices, and renal ultrasound. I would recommend holding diuretics for now since patient appears to be euvolemic on exam. She is on room air without dyspnea. We can decide on the need for diuretic on a day-to-day basis for now. Will recheck renal function, volume status, acid-base and electrolytes again tomorrow. HPI Consult Data Date of Consult: 10/07/24 HPI Narrative Reason for Consultation: NEELIMA on CKD HPI Narrative: The patient is a 89-year-old female with past history of chronic kidney disease stage G3a, type 2 diabetes mellitus, hypertension, hyperlipidemia, and GERD. Patient presented to the hospital on 10/04/2024 with 2-day history of dyspnea. The patient was admitted for treatment of acute hypoxic respiratory failure. Patient initially required NIPPV, and she is treated with furosemide infusion for decongestion of pulmonary edema. Nephrology is asked see the patient because of acute kidney injury on chronic kidney disease. The patient denies current chest pain or pressure. Dyspnea has markedly improved over the past 48 hours. She is no longer requiring supplemental oxygen. The patient denies nausea, vomiting, or diarrhea. Edema of the lower extremities has resolved. The patient did undergo left heart catheterization on 10/06/2024 and received contrast. [facility] Medical History Anemia Diabetes Non-smoker Skin cancer Dehydration GERD (gastroesophageal reflux disease) Acute blood loss anemia Closed left hip fracture HTN (hypertension) Hypercholesteremia Type II diabetes mellitus Home Medications ?Medication ?Instructions ?Recorded ?Last Taken ?Type atorvastatin 80 mg tablet 80 mg PO QHS 08/25/13 Unknown History glimepiride 2 mg tablet 4 mg PO DAILY 08/25/13 02/08/15 07:00 History lisinopril 40 mg tablet 40 mg PO DAILY 08/25/13 02/14/16 05:00 History multivitamin with folic acid 400 1 tab PO DAILYCM #30 tabs 02/11/15 Unknown Rx mcg tablet amlodipine 5 mg tablet 5 mg PO DAILY 04/10/19 Unknown History Poglitasone 15 mg PO DAILY 05/23/19 Unknown History omeprazole 40 mg capsule,delayed 40 mg PO DAILY 05/23/19 Unknown History release blood sugar diagnostic (True 10/04/24 Unknown History Metrix Glucose Test Strip) Allergy/AdvReac Type Severity Reaction Status Date / Time metformin Allergy Hives Verified 05/23/19 08:24 morphine AdvReac Nausea Verified 05/23/19 08:24 oxycodone (Oxycodone) AdvReac Nausea Verified 05/23/19 08:24 Family History Sister Breast cancer Colon cancer Diabetes Uncle Heart disease Brother Kidney disease Surgical History History of appendectomy History of cholecystectomy History of hip replacement History of shoulder replacement S/P ORIF (open reduction internal fixation) fracture Social History household members: none current occupational status: retired Smoking Status: Never smoker alcohol intake: never substance use type: does not use Physical Exam Narrative General: Alert and oriented x3, NAD. HEENT: Normocephalic, atraumatic. Mucous membrane moist without erythema. PERRLA, EOMI. Hearing is intact. Neck: Supple, no JVD. Trachea is midline. No thyromegaly or lymphadenopathy. Cardiovascular: Normal S1, S2. No rubs, murmurs, or gallops. Respiratory: Lungs are clear to auscultation bilaterally. No wheezing, rhonchi, or rales. Abdomen: Normal bowel sounds, soft, nontender, no guarding or rebound, no organomegaly. Extremities: No clubbing, cyanosis, or edema. Musculoskeletal: Full passive range of motion, no joint swelling. Psychiatric: Normal mood and affect. Skin: Warm and dry, no rash. Neurologic: Cranial nerve II to XII are grossly intact. No focal neurologic deficits. Lab / Micro Data 10/07/24 06:14 10/07/24 06:14 Labs: Laboratory Results - last 24 hr 10/06/24 03:03: Triglycerides 79, Cholesterol 123, LDL Cholesterol 60, VLDL Cholesterol 16, HDL Cholesterol 47 10/07/24 06:14: WBC 7.1, RBC 3.21 L, Hgb 9.4 L, Hct 29.2 L, MCV 91.0, MCH 29.3, MCHC 32.2, RDW Std Deviation 47.3 H, RDW Coeff of Najma 14.2, Plt Count 206, MPV 9.7, Immature Gran % (Auto) 0.300, Neut % (Auto) 66.9, Lymph % (Auto) 18.6 L, Pope % (Auto) 11.7 H, Eos % (Auto) 2.1, Baso % (Auto) 0.4, Absolute Neuts (auto) 4.7, Absolute Lymphs (auto) 1.32, Nucleated RBC % 0, Sodium 139, Potassium 3.8, Chloride 104, Carbon Dioxide 29.0, Anion Gap 6, BUN 42 H, Creatinine 1.80 H, Estim Creat Clear Calc 19.58, Est GFR (MDRD) Af Amer 34 L, Est GFR (MDRD) Non-Af 28 L, BUN/Creatinine Ratio 23.3 H, Glucose 124 H, Calcium 8.6 10/07/24 06:44: POC Glucose 125 H Rhythm Strip Rhythm Strip: Sinus Rhythm Imaging Radiology Impression Venous Doppler Study 10/06/24 12:29 Interpretation Summary Deep veins of the lower extremities are bilaterally patent and compressible segmentally. There is no evidence of deep vein thrombosis on either side. Valvular competence appears intact within the proximal deep venous systems bilaterally. The great saphenous veins appear bilaterally patent and compressible segmentally. Ordering Physician: Tone Bethea Referring Physician: Treva Sandoval Performed By: Silvio Reynaga RVT
[2024-10-07 11:58] VITALS: O2SAT 93
[2024-10-07 12:17] LABS: Bedside Glucose 134 mg/dL (74-106)
[2024-10-07 13:39] LABS: Bacteria 0 SEEN /hpf (None Seen); Mucous, Urine 0 SEEN /hpf (<or=2+); Red Blood Cells-Urine 0 SEEN /hpf (0-5); White Blood Cells 0 SEEN /hpf (0-5)
[2024-10-07 13:48] LABS: Color, Urine Yellow (Yellow); Glucose, Dipstick 1000 mg/dl (Normal); Ketone-Dipstick Negative (Negative); Leukocyte Esterase-Dipstick 25 /ul (Negative); Nitrite-Dipstick Negative (Negative); Occult Blood-Urine Negative /ul (Negative); Protein-Dipstick 15 mg/dl (Negative); Urine Bilirubin Dipstick Negative (Negative); Urine Clarity Clear (Clear); Urine Urobilinogen 1 mg/dl (Normal)
[2024-10-07 14:01] LABS: Squamous Epithelial Cells - UA 0-5 SEEN /hpf (5-10)
[2024-10-07 14:07] LABS: Urea Nitrogen, Urine 546 mg/dL (NO RANGE EST.)
[2024-10-07 14:44] VITALS: BP 125/40; PULSE 71; RESP 15; TEMP 36.5; O2SAT 99
--- NOTE | 2024-10-07 16:19 | PN.HOSP_ITS ---
Reason for Visit Reason for Visit: Diagnoses Type 2 diabetes mellitus without complications (10/04/24) Hyperlipidemia, unspecified (10/04/24) Essential (primary) hypertension (10/04/24) Non-ST elevation (NSTEMI) myocardial infarction (10/04/24) Acute diastolic (congestive) heart failure (10/04/24) Acute respiratory failure with hypoxia (10/04/24) Acute kidney failure, unspecified (10/04/24) Chronic kidney disease, stage 3b (10/04/24) Shortness of breath (10/04/24) Other specified abnormal findings of blood chemistry (10/04/24) Objective Data Objective Data Vital Signs: Vital Signs Temp Pulse Resp BP Pulse Ox O2 Del Method O2 Flow Rate 97.7 F L 71 15 125/40 H 99 Room Air 2 10/07/24 14:44 10/07/24 14:44 10/07/24 14:44 10/07/24 14:44 10/07/24 14:44 10/07/24 14:45 10/06/24 03:30 FiO2 50 10/04/24 16:37 Oxygen Flow Rate (L/min) 2 Oxygen Delivery Method Room Air Weight: 156 lb 15.506 oz Body Mass Index (BMI) 28.7 Intake & Output: Intake and Output for Last 24 Hours 10/05/24 10/06/24 10/07/24 23:59 23:59 23:59 Intake Total 705.35 / 705.35 550.13 / 550.13 1580 / 1580 Output Total 1260 / 1260 830 / 830 Balance -554.65 / -554.65 -279.87 / -279.87 1580 / 1580 Lab / Micro Data 10/07/24 06:14 10/07/24 06:14 Labs: Laboratory Results - last 24 hr 10/07/24 06:14: WBC 7.1, RBC 3.21 L, Hgb 9.4 L, Hct 29.2 L, MCV 91.0, MCH 29.3, MCHC 32.2, RDW Std Deviation 47.3 H, RDW Coeff of Najma 14.2, Plt Count 206, MPV 9.7, Immature Gran % (Auto) 0.300, Neut % (Auto) 66.9, Lymph % (Auto) 18.6 L, M maximino % (Auto) 11.7 H, Eos % (Auto) 2.1, Baso % (Auto) 0.4, Absolute Neuts (auto) 4.7, Absolute Lymphs (auto) 1.32, Nucleated RBC % 0, Sodium 139, Potassium 3.8, Chloride 104, Carbon Dioxide 29.0, Anion Gap 6, BUN 42 H, Creatinine 1.80 H, Estim Creat Clear Calc 19.58, Est GFR (MDRD) Af Amer 34 L, Est GFR (MDRD) Non-Af 28 L, BUN/Creatinine Ratio 23.3 H, Glucose 124 H, Calcium 8.6 10/07/24 06:44: POC Glucose 125 H 10/07/24 11:48: POC Glucose 134 H 10/07/24 13:34: Urine Color Yellow, Urine Clarity Clear, Urine pH 8.0, Ur Specific [place] 1.010, Urine Protein 15 H, Urine Glucose (UA) 1000 H, Urine Ketones Negative, Urine Occult Blood Negative, Urine Nitrite Negative, Urine Bilirubin Negative, Urine Urobilinogen 1 H, Ur Leukocyte Esterase 25 H, Urine RBC 0 SEEN, Urine WBC 0 SEEN, Ur Squamous Epith Cells 0-5 SEEN, Urine Bacteria 0 SEEN, Urine Mucus 0 SEEN, Urine Creatinine 51.80, Urine Urea Nitrogen 546 Micro: Microbiology 10/04/24 15:05 Mucosa - Nasopharyngeal Respiratory Panel (PCR) - Final 10/04/24 11:43 Mucosa - Nose SARS-CoV-2, Influenza & RSV (PCR) - Final Radiography Diagnostic Testing: Radiology Impression Venous Doppler Study 10/06/24 12:29 Interpretation Summary Deep veins of the lower extremities are bilaterally patent and compressible segmentally. There is no evidence of deep vein thrombosis on either side. Valvular competence appears intact within the proximal deep venous systems bilaterally. The great saphenous veins appear bilaterally patent and compressible segmentally. Ordering Physician: Tone Bethea Referring Physician: Treva Sandoval Performed By: Silvio Reynaga RVT Rhythm Strip Rhythm Strip: Sinus Rhythm Physical Exam Narrative Seen and examined. Patient creatinine went up. Otherwise no acute chest pain or pressure. Shortness of breath has improved. Patient's daughter on the room Physical exam: General: Alert, Oriented x3, Cooperative. BMI 29.6 kg/m? HEENT: Atraumatic, PERRLA, EOMI, Normocephalic Oral: No Gingival or Mucosal Lesions/ Ulcerations Neck: Supple, No JVD, Negative Carotid Bruits Chest wall/Lungs: Air entry diminished in bilateral lung bases. No crepitations or rhonchi. Cardiovascular: Regular rate, Regular Rhythm, Normal S1, Normal S2, no murmur gallop rub Abdomen: Bowel Sounds Present, Soft, Non Tender, Non-Distended : No dysuria. No renal angle tenderness. No suprapubic tenderness. Extremities: Mild ankle bilateral 1+ edema, Capillary Refill Less than 3 Seconds Skin: No rashes, No breakdown Musculoskeletal: No Tenderness to Palpation of Joints or Extremities Neurological: Cranial nerves II-XII grossly intact, DTR 2+/4. No acute focal neurological deficit. Psych/Mental Status: Normal Affect, Appropriate. Assessment & Plan Assessment/Plan (1) Acute hypoxic respiratory failure: (2) Elevated brain natriuretic peptide (BNP) level: (3) Shortness of breath: PLAN: Plan 89-year-old female was admitted with shortness of breath, wheezing, respiratory distress and occasional left-sided chest heaviness. Her legs are also swollen. Denies any history of COPD or CHF 1. Acute hypoxic respiratory failure: Patient is being admitted in PCU. Was admitted on BiPAP for respiratory distress. Initial ABG showed PaO2 105 on 50% FiO2 on BiPAP suggestive of high Aa gradient. Weaned down to 94% on room air. Chest x-ray individually reviewed and consistent with pulmonary edema. Heart failure core measures including intake and output, fluid restriction less than 1500 mL, daily weight monitoring, kidney and electrolytes monitoring. Patient on Lasix drip. Elevated BNP. Triple PCR for SARS-CoV-2, flu and RSV are negative. Respiratory panel negative 10/06: Pulse ox varies 96% on room air.Patient is not short of breath. 2. High hs- troponin with concern of non-STEMI: Patient troponin progressively increased 15, 775, 1024 and 1362. Started on aspirin. Patient on IV heparin drip. 2D echo shows EF 65%, stage I diastolic function, mild MR mild TR RVSP 41 mmHg. Mild concentric LVH. Does not mention about wall motion abnormality. Bilingual Teacher Aide consulted. 10/06: Elevated D-dimer 0.89 but age-adjusted is also 0.89 therefore normal for age. She denies prior history of DVT/PE. IV contrast is contraindicated. Venous duplex ordered to rule out DVT Pharmacological nuclear stress test shows mildly reduced perfusion of anterior wall and apex, post pharmacological stress suggestive of ischemia. Subsequently diagnostic cath was done which shows EF 65%, left main tubular 50% ostial, 50% tubular calcified mid LAD. Tubular calcified 50% and mid RCA. Medical management was recommended. 10/07: No acute issues last 2 day. 3. 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 Repeat BUN/creatinine 36/1.34 slightly went up. Continue Lasix drip. Electrolytes in normal range. K low normal 3.6. Add low-dose spironolactone and carvedilol. -Lisinopril on hold for now due to diuretic use not because of CKD 10/06: Her creatinine went up from 1.34-1.67. Probably due to diuretic therefore furosemide spironolactone discontinued. K3.5 therefore 1 dose KCl 40 mEq. 10/07: Creatinine went up to 1.8. Discussed with the spice cleaner. Renal ultrasound ordered. UA shows LE 25, RBC 0, WBC 0, bacteria 0, nitrite negative. No prolonged period of hypotension. NEELIMA probably from cardiorenal syndrome. Urine BUN increased suggestive of prerenal. Diuretic is on hold for last 2 days DM-2 -Oral hypoglycemic agents held while inpatient. Accu-Chek before meals and at bedtime with Humalog sliding scale coverage and hypoglycemia protocol. -Glucose reasonably controlled 10/06: Glucose 142. 10/07: Glucoses controlled. Essential hypertension/hyperlipidemia -Continue home atorvastatin -Hold home lisinopril for now given Lasix drip and monitor for need of reinitiation -Continue home amlodipine GERD -Continue home PPI Obesity -BMI 31.3 -Complicates treatment, prognosis, outcomes DVT prophylaxis -Subcu Lovenox daily CODE STATUS -DNR CCA okay for short-term intubation only per discussion with patient and family at the bedside -Patient is considering transitioning to no intubation Microbiology Past 72 Hours 10/04/24 15:05 Mucosa - Nasopharyngeal Respiratory Panel (PCR) - Final 10/04/24 11:43 Mucosa - Nose SARS-CoV-2, Influenza & RSV (PCR) - Final Laboratory Results 10/07/24 06:14: WBC 7.1, RBC 3.21 L, Hgb 9.4 L, Hct 29.2 L, MCV 91.0, MCH 29.3, MCHC 32.2, RDW Std Deviation 47.3 H, RDW Coeff of Najma 14.2, Plt Count 206, MPV 9.7, Immature Gran % (Auto) 0.300, Neut % (Auto) 66.9, Lymph % (Auto) 18.6 L, M maximino % (Auto) 11.7 H, Eos % (Auto) 2.1, Baso % (Auto) 0.4, Absolute Neuts (auto) 4.7, Absolute Lymphs (auto) 1.32, Nucleated RBC % 0, Sodium 139, Potassium 3.8, Chloride 104, Carbon Dioxide 29.0, Anion Gap 6, BUN 42 H, Creatinine 1.80 H, Estim Creat Clear Calc 19.58, Est GFR (MDRD) Af Amer 34 L, Est GFR (MDRD) Non-Af 28 L, BUN/Creatinine Ratio 23.3 H, Glucose 124 H, Calcium 8.6 10/07/24 06:44: POC Glucose 125 H 10/07/24 11:48: POC Glucose 134 H 10/07/24 13:34: Urine Color Yellow, Urine Clarity Clear, Urine pH 8.0, Ur Specific [place] 1.010, Urine Protein 15 H, Urine Glucose (UA) 1000 H, Urine Ketones Negative, Urine Occult Blood Negative, Urine Nitrite Negative, Urine Bilirubin Negative, Urine Urobilinogen 1 H, Ur Leukocyte Esterase 25 H, Urine RBC 0 SEEN, Urine WBC 0 SEEN, Ur Squamous Epith Cells 0-5 SEEN, Urine Bacteria 0 SEEN, Urine Mucus 0 SEEN, Urine Creatinine 51.80, Urine Urea Nitrogen 546 Charges/Coding Visit Charges Inpatient E&M: 85733 Subs Hosp L2
[2024-10-07 17:16] LABS: Bedside Glucose 138 mg/dL (74-106)
[2024-10-07 17:16] LABS: Bedside Glucose 238 mg/dL (74-106)
[2024-10-07 17:16] LABS: Bedside Glucose 210 mg/dL (74-106)
[2024-10-07 17:17] LABS: Bedside Glucose 210 mg/dL (74-106)
[2024-10-07 17:17] LABS: Bedside Glucose 120 mg/dL (74-106)
[2024-10-07 17:26] LABS: Bedside Glucose 158 mg/dL (74-106)
[2024-10-07] MEDS: Atorvastatin Calcium 80 MG Tablet PO (19:55)
[2024-10-07 20:00] VITALS: BP 144/44; PULSE 65; RESP 16; TEMP 36.9; O2SAT 95
[2024-10-07 20:50] LABS: Bedside Glucose 175 mg/dL (74-106)
[2024-10-08 02:30] VITALS: BP 122/40; PULSE 68; RESP 18; TEMP 37; O2SAT 95
[2024-10-08 04:47] VITALS: BMI 28.5
[2024-10-08 06:39] LABS: Bedside Glucose 130 mg/dL (74-106)
[2024-10-08 07:00] LABS: Absolute Lymphocyte Count 1.24 X10^3/uL (0.83-4.51); Basophil# 0.03 X10^3/uL; Basophil% 0.5 % (0-1); Eosinophil# 0.19 X10^3/uL; Eosinophils% 3.1 % (0-5); Hematocrit 29.1 % (37-47); Hemoglobin 9.2 g/dL (12.0-15.0); Lymphocyte # 1.24 X10^3/ul (0.83-4.51); Mean Corp Hgb Conc 31.6 g/dL (32-36); Mean Corpuscular Hgb 29.4 pg (27.0-32.0); Mean Platelet Vol. 9.7 fl (6.2-12.0); Monocyte# 0.69 X10^3/uL; Monocyte% 11.1 % (0-10); NRBC Flagged by Analyzer 0 % (0-5); Neutrophil # 4.03 X10^3/uL (2.7-7.7); Neutrophil % 64.8 % (47-70); Platelet Count 193 K/mm3 (150-450); RBC Distribution Width CV 13.9 % (11.6-14.6); RBC Distribution Width SD 46.9 fl (35.1-43.9); Red Blood Count 3.13 M/mm3 (4.2-5.4); White Blood Count 6.2 K/mm3 (4.4-11.0)
[2024-10-08 07:18] LABS: Anion Gap 4 (5-15); BUN 37 mg/dL (7-18); BUN/Creat Ratio 27.6 RATIO (10-20); Calcium,Total 8.5 mg/dL (8.5-10.1); Chloride 110 mmol/L (98-107); Creatinine, Serum 1.34 mg/dL (0.55-1.02); EST Glomerular Filtration Rate 40 mL/min (>60); Est Glom Filt Rate - Afr Amer 48 mL/min (>60); Estimated Creatinine Clearance 26.21 ml/min; Glucose 142 mg/dL (74-106); Potassium 3.4 mmol/L (3.5-5.1); Sodium Level 141 mmol/L (136-145)
[2024-10-08 07:47] VITALS: O2SAT 96
[2024-10-08 08:28] VITALS: BP 141/43; PULSE 71; RESP 16; TEMP 36.5; O2SAT 95
[2024-10-08] MEDS: Pantoprazole Sodium 40 MG Tablet PO (08:37)
[2024-10-08] MEDS: Multivitamins,Therapeutic Tablet 1 TABLET PO (08:37)
[2024-10-08] MEDS: Carvedilol 3.125 MG TABLET PO (08:37)
[2024-10-08] MEDS: Clopidogrel Bisulfate 75 MG Tablet PO (08:37)
[2024-10-08] MEDS: Aspirin E.C. 81 MG Tablet PO (08:37)
--- NOTE | 2024-10-08 08:40 | DCINST_ITS ---
Discharge Instructions Diet Discharge Diet: 1800 Calorie Control Diet and 2000 mg Sodium Diet DC O2, CPAP, BIPAP needs Home O2 Discharge instructions: No Dressing / Incision Discharge Activity: Return to Normal Activity Weight Bearing Status: Weight bearing as tolerated Dressing / Incision Call your doctor if you observe: Fever of 101 or Higher, Coldness, Increased Pain, Numbness or Tingling, Change in Color, Inability to urinate, Inability to have a bowel movement, Shortness of breath, Dizziness, Fainting spells, Swelling in the ankles, Chest pain, Prolonged hiccupping, Increased palpitations (irregular heartbeat) and Calf discomfort Follow Up Care When: IN 2 WEEKS Test Results: Test results from this visit will be discussed in further detail at your follow- up appointment, if applicable. Discharge Plan Admission Admit Date/Time: 10/04/24 14:31 Primary Reason for Your Visit: Non-STEMI. NEELIMA Attending Provider: Tone Bethea Primary Care Provider: Treva Sandoval Consulting Providers: Jenifer Valente; Jonah Bethea; Shanelle Daly Instructions Additional Instructions / Restrictions: Hold lisinopril as mentioned in the discharge instruction. Start Lasix on 10/12 after BMP in 2 to 3 days in consultation with PCP Discharge Orders/Prescriptions Prescriptions: New furosemide 40 mg Tablet 40 mg PO DAILY 30 Days Qty: 30 2RF Rx Instructions: Start on 10/12/2024 in consultation with PCP. clopidogrel 75 mg Tablet 75 mg PO DAILY 30 Days Qty: 30 1RF Rx Instructions: Discontinue if platelet count drops less than 50,000 or hemoglobin less than 8 g% aspirin 81 mg Tablet,Delayed Release (Dr/Ec) 81 mg PO BREAKFAST 30 Days Qty: 30 4RF carvedilol 3.125 mg Tablet 3.125 mg PO BID 30 Days Qty: 60 3RF Jardiance 10 mg Tablet 10 mg PO DAILY 30 Days Qty: 30 2RF Continued amlodipine 5 mg tablet 5 mg PO DAILY atorvastatin 80 MG tablet 80 mg PO QHS Patient Comments: cholesterol multivitamin with folic acid 1 TABLET tablet 1 tab PO DAILYCM Qty: 30 0RF Patient Comments: supplement omeprazole 40 MG capsule,delayed release(DR/EC) 40 mg PO DAILY Poglitasone 15 mg PO DAILY (DME) True Metrix Glucose Test Strip Strip MISCELLANEOUS DAILY Held glimepiride 2 MG tablet 4 mg PO DAILY Hold Instructions: Hold today and then start low-dose 2 mg daily because of NEELIMA. Patient Comments: blood sugar lisinopril 40 MG tablet 40 mg PO DAILY Hold Instructions: Hold for 5 days. Start with lower dose 10 mg in consultation with PCP Patient Comments: blood pressure Referrals / Follow Up: Jonah Bethea MD [Med Staff - Active Staff] - Within 1 Month Treva Sandoval NP-C [Primary Care Provider] - Within 1 Week Disposition Disposition (needs filled in before D/C Order can be placed): Home, Self Care
[2024-10-08] MEDS: Potassium Chloride Oral Tablet 20 MEQ 40 MEQ PO (08:59)
--- NOTE | 2024-10-08 10:19 | PCM.DC.SUM ---
Providers Date of Admission: 10/04/24 Date of Discharge: 10/08/24 Primary Care Physician: AMAURY Louise Consultations 10/05/24 10:47 Consult: Cardiology Routine Consulting Provider: Jonah Bethea Reason for Consult: NSTEMI EMERGENT Consult: No Notified: Yes Date Notified: 10/05/24 Time Notified: 10:47 Method of Notification: Text 10/07/24 09:08 Consult: Nephrology Routine Consulting Provider: Shanelle Daly Reason for Consult: NEELIMA on CKD, WILI EMERGENT Consult: No Notified: Yes Date Notified: 10/07/24 Time Notified: 09:08 Method of Notification: Text Reason For Visit: ACUTE HYPOXIC RESPIRATORY FAILURE Diagnosis Discharge Diagnosis (1) Acute hypoxic respiratory failure: Status: Acute Code(s): J96.01 - Acute respiratory failure with hypoxia (2) Elevated brain natriuretic peptide (BNP) level: Status: Acute Code(s): R79.89 - Other specified abnormal findings of blood chemistry (3) Shortness of breath: Status: Acute Code(s): R06.02 - Shortness of breath Plan 89-year-old female was admitted with shortness of breath, wheezing, respiratory distress and occasional left-sided chest heaviness. Her legs are also swollen. Denies any history of COPD or CHF 1. Acute hypoxic respiratory failure due to acute on chronic HFpEF: Patient is being admitted in PCU. Was admitted on BiPAP for respiratory distress. Initial ABG showed PaO2 105 on 50% FiO2 on BiPAP suggestive of high Aa gradient. Weaned down to 94% on room air. Chest x-ray individually reviewed and consistent with pulmonary edema. Heart failure core measures including intake and output, fluid restriction less than 1500 mL, daily weight monitoring, kidney and electrolytes monitoring. Patient on Lasix drip. Elevated BNP. Triple PCR for SARS-CoV-2, flu and RSV are negative. Respiratory panel negative 10/06: Pulse ox varies 96% on room air.Patient is not short of breath. 2. High hs- troponin with concern of non-STEMI and acute on chronic HFpEF: Patient troponin progressively increased 15, 775, 1024 and 1362. Started on aspirin. Patient on IV heparin drip. 2D echo shows EF 65%, stage I diastolic function, mild MR mild TR RVSP 41 mmHg. Mild concentric LVH. Does not mention about wall motion abnormality. Director Of Infection Prevention consulted. 10/06: Elevated D-dimer 0.89 but age-adjusted is also 0.89 therefore normal for age. She denies prior history of DVT/PE. IV contrast is contraindicated. Venous duplex ordered to rule out DVT Pharmacological nuclear stress test shows mildly reduced perfusion of anterior wall and apex, post pharmacological stress suggestive of ischemia. Subsequently diagnostic cath was done which shows EF 65%, left main tubular 50% ostial, 50% tubular calcified mid LAD. Tubular calcified 50% and mid RCA. Medical management was recommended. 10/07: No acute issues last 2 day. 10/08: Prescription given for baby aspirin, carvedilol, Plavix and empagliflozin 3. 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 Repeat BUN/creatinine 36/1.34 slightly went up. Continue Lasix drip. Electrolytes in normal range. K low normal 3.6. Add low-dose spironolactone and carvedilol. -Lisinopril on hold for now due to diuretic use not because of CKD 10/06: Her creatinine went up from 1.34-1.67. Probably due to diuretic therefore furosemide spironolactone discontinued. K3.5 therefore 1 dose KCl 40 mEq. 10/07: Creatinine went up to 1.8. Discussed with the medical language specialist. Renal ultrasound ordered. UA shows LE 25, RBC 0, WBC 0, bacteria 0, nitrite negative. No prolonged period of hypotension. NEELIMA probably from cardiorenal syndrome. Urine BUN increased suggestive of prerenal. Diuretic is on hold for last 2 days 10/08: Creatinine improved to 1.34. No demonstrated calculi. Renal ultrasound reported no suspicious hemodynamic findings. Continue holding lisinopril and furosemide. Advised BMP in 2 to 3 days with PCP and adjust the dose of Lasix and lisinopril accordingly. Prescription for furosemide given but not to start before the lab test and consultation with PCP. Patient is discharged after the medical language specialist recommendation. DM-2 -Oral hypoglycemic agents held while inpatient. Accu-Chek before meals and at bedtime with Humalog sliding scale coverage and hypoglycemia protocol. -Glucose reasonably controlled 10/06: Glucose 142. 10/07: Glucoses controlled. 10/08: Glimepiride was held, patient can resume tomorrow lower dose 2 mg daily because of NEELIMA. Essential hypertension/hyperlipidemia -Continue home atorvastatin -Hold home lisinopril for now given Lasix drip and monitor for need of reinitiation -Continue home amlodipine GERD -Continue home PPI Obesity -BMI 31.3 -Complicates treatment, prognosis, outcomes DVT prophylaxis -Subcu Lovenox daily CODE STATUS -DNR CCA okay for short-term intubation only per discussion with patient and family at the bedside -Patient is considering transitioning to no intubation Discharge medication reconciliation done. Discharge follow-up instructions completed. Discharge process discussed with the patient and all questions were answered to patient's satisfaction. Follow with PCP in 1 to 2 weeks Total time spent, exact 35 minutes on discharge meds reconciliation, examination, coordination of care with nurses and ancillary staff, review of imaging and blood test and discussion with the patient on follow-up instructions. Microbiology Past 72 Hours 10/04/24 15:05 Mucosa - Nasopharyngeal Respiratory Panel (PCR) - Final 10/04/24 11:43 Mucosa - Nose SARS-CoV-2, Influenza & RSV (PCR) - Final Laboratory Results 10/07/24 06:14: WBC 7.1, RBC 3.21 L, Hgb 9.4 L, Hct 29.2 L, MCV 91.0, MCH 29.3, MCHC 32.2, RDW Std Deviation 47.3 H, RDW Coeff of Najma 14.2, Plt Count 206, MPV 9.7, Immature Gran % (Auto) 0.300, Neut % (Auto) 66.9, Lymph % (Auto) 18.6 L, [place] % (Auto) 11.7 H, Eos % (Auto) 2.1, Baso % (Auto) 0.4, Absolute Neuts (auto) 4.7, Absolute Lymphs (auto) 1.32, Nucleated RBC % 0, Sodium 139, Potassium 3.8, Chloride 104, Carbon Dioxide 29.0, Anion Gap 6, BUN 42 H, Creatinine 1.80 H, Estim Creat Clear Calc 19.58, Est GFR (MDRD) Af Amer 34 L, Est GFR (MDRD) Non-Af 28 L, BUN/Creatinine Ratio 23.3 H, Glucose 124 H, Calcium 8.6 10/07/24 06:44: POC Glucose 125 H 10/07/24 11:48: POC Glucose 134 H 10/07/24 13:34: Urine Color Yellow, Urine Clarity Clear, Urine pH 8.0, Ur Specific [place] 1.010, Urine Protein 15 H, Urine Glucose (UA) 1000 H, Urine Ketones Negative, Urine Occult Blood Negative, Urine Nitrite Negative, Urine Bilirubin Negative, Urine Urobilinogen 1 H, Ur Leukocyte Esterase 25 H, Urine RBC 0 SEEN, Urine WBC 0 SEEN, Ur Squamous Epith Cells 0-5 SEEN, Urine Bacteria 0 SEEN, Urine Mucus 0 SEEN, Urine Creatinine 51.80, Urine Urea Nitrogen 546 Medications at Discharge Home Medications atorvastatin 80 mg tablet 80 mg PO QHS 08/25/13 glimepiride 2 mg tablet 4 mg PO DAILY 08/25/13 lisinopril 40 mg tablet 40 mg PO DAILY 08/25/13 multivitamin with folic acid 400 mcg tablet 1 tab PO DAILYCM #30 tabs 02/11/15 amlodipine 5 mg tablet 5 mg PO DAILY 04/10/19 Poglitasone 15 mg PO DAILY 05/23/19 omeprazole 40 mg capsule,delayed release 40 mg PO DAILY 05/23/19 blood sugar diagnostic (True Metrix Glucose Test Strip) 10/04/24 aspirin 81 mg tablet,delayed release 81 mg PO BREAKFAST 30 days #30 tabs 10/08/24 carvedilol 3.125 mg tablet 3.125 mg PO BID 30 days #60 tabs 10/08/24 clopidogrel 75 mg tablet 75 mg PO DAILY 30 days #30 tabs 10/08/24 empagliflozin 10 mg tablet (Jardiance) 10 mg PO DAILY 30 days #30 tabs 10/08/24 furosemide 40 mg tablet 40 mg PO DAILY 30 days #30 tabs 10/08/24 Physical Exam Narrative Seen and examined. Creatinine improved to 1.34. Her baseline is around 1.21. No chest pain shortness of breath has improved. Discussed with the patient's daughter and son-in-law present in the room Physical exam: General: Alert, Oriented x3, Cooperative. BMI 29.6 kg/m? HEENT: Atraumatic, PERRLA, EOMI, Normocephalic Oral: No Gingival or Mucosal Lesions/ Ulcerations Neck: Supple, No JVD, Negative Carotid Bruits Chest wall/Lungs: Air entry diminished in bilateral lung bases. No crepitations or rhonchi. Cardiovascular: Regular rate, Regular Rhythm, Normal S1, Normal S2, no murmur gallop rub Abdomen: Bowel Sounds Present, Soft, Non Tender, Non-Distended : No dysuria. No renal angle tenderness. No suprapubic tenderness. Extremities: Mild ankle bilateral 1+ edema, Capillary Refill Less than 3 Seconds Skin: No rashes, No breakdown Musculoskeletal: No Tenderness to Palpation of Joints or Extremities Neurological: Cranial nerves II-XII grossly intact, DTR 2+/4. No acute focal neurological deficit. Psych/Mental Status: Normal Affect, Appropriate. Weight / BMI Weight Weight: 155 lb 13.869 oz Body Mass Index (BMI) 28.5 ABG / Lab / Microbiology Data 10/08/24 06:20 10/08/24 06:20 Laboratory: Laboratory Results - last 24 hr 10/05/24 18:03: POC Glucose 210 H 10/06/24 06:43: POC Glucose 138 H 10/06/24 11:41: POC Glucose 238 H 10/06/24 16:58: POC Glucose 210 H 10/06/24 22:53: POC Glucose 120 H 10/07/24 11:48: POC Glucose 134 H 10/07/24 13:34: Urine Color Yellow, Urine Clarity Clear, Urine pH 8.0, Ur Specific [place] 1.010, Urine Protein 15 H, Urine Glucose (UA) 1000 H, Urine Ketones Negative, Urine Occult Blood Negative, Urine Nitrite Negative, Urine Bilirubin Negative, Urine Urobilinogen 1 H, Ur Leukocyte Esterase 25 H, Urine RBC 0 SEEN, Urine WBC 0 SEEN, Ur Squamous Epith Cells 0-5 SEEN, Urine Bacteria 0 SEEN, Urine Mucus 0 SEEN, Urine Creatinine 51.80, Urine Urea Nitrogen 546 10/07/24 17:00: POC Glucose 158 H 10/07/24 19:54: POC Glucose 175 H 10/08/24 06:20: WBC 6.2, RBC 3.13 L, Hgb 9.2 L, Hct 29.1 L, MCV 93.0, MCH 29.4, MCHC 31.6 L, RDW Std Deviation 46.9 H, RDW Coeff of Najma 13.9, Plt Count 193, MPV 9.7, Immature Gran % (Auto) 0.500, Neut % (Auto) 64.8, Lymph % (Auto) 20.0, [place] % (Auto) 11.1 H, Eos % (Auto) 3.1, Baso % (Auto) 0.5, Absolute Neuts (auto) 4.0, Absolute Lymphs (auto) 1.24, Nucleated RBC % 0, Sodium 141, Potassium 3.4 L, Chloride 110 H, Carbon Dioxide 27.0, Anion Gap 4 L, BUN 37 H, Creatinine 1.34 H, Estim Creat Clear Calc 26.21, Est GFR (MDRD) Af Amer 48 L, Est GFR (MDRD) Non-Af 40 L, BUN/Creatinine Ratio 27.6 H, Glucose 142 H, Calcium 8.5 10/08/24 06:21: POC Glucose 130 H Microbiology: Microbiology 10/04/24 15:05 Mucosa - Nasopharyngeal Respiratory Panel (PCR) - Final 10/04/24 11:43 Mucosa - Nose SARS-CoV-2, Influenza & RSV (PCR) - Final Radiography Diagnostic Testing: Radiology Impression Renal Ultrasound 10/07/24 09:08 IMPRESSION: No suspicious sonographic findings Electronically Signed: Adam Correia MD at 8:15 EST Reading Location ID and State: [address] [place] [address] , Service support , D/C Instructions Discharge Diet: 1800 Calorie Control Diet and 2000 mg Sodium Diet Weight Bearing Status: Weight bearing as tolerated Call your doctor if you observe: Fever of 101 or Higher, Coldness, Increased Pain, Numbness or Tingling, Change in Color, Inability to urinate, Inability to have a bowel movement, Shortness of breath, Dizziness, Fainting spells, Swelling in the ankles, Chest pain, Prolonged hiccupping, Increased palpitations (irregular heartbeat) and Calf discomfort DC O2, CPAP, BIPAP Needs PSN CPAP & BiPAP: BiPAP & CPAP Settings per PSN Mode BiPAP 10/04/24 16:37 Bipap Delivery Device Face Mask 10/04/24 16:37 BiPAP Inspiratory Pressure 10/04/24 16:37 BiPAP Expiratory Pressure 8 10/04/24 16:37 BiPAP Rate 12 10/04/24 16:37 Fraction of Inspired Oxygen ( 50 10/04/24 16:37 FIO2) Home O2 Discharge instructions: No When: IN 2 WEEKS Meaningful Use Info Meaningful Use Meaningful Use Diagnoses (Choose all that apply): AMI AMI/Post PCI/Angioplasty Aspirin given w/in 24hrs of arrival?: Yes ASA at discharge?: Yes Statins at discharge?: Yes Matt/ARB at discharge?: No Reason Matt/ARB not ordered:: Worsening renal dysfunctn Beta Roxana at discharge?: Yes Done w/ Acute MA measure.: Yes Ischemic Stroke Statin Dosing Therapy Reference: STATIN DOSE THERAPY REFERENCE: * Patients > 75 years receive moderate or high dose statin therapy. * Patients 75 years or YOUNGER should receive HIGH intensity statin dose unless contraindicated. You will be required to document reason for non-treatment if statin daily dose does not meet guidelines. HIGH DOSE STATIN THERAPY DAILY Atorvastatin > than or = to 40 mg Rosuvastatin > than or = to 20 mg Amlodipine + Atorvastatin > than or = to 2.5/40 mg Ezetimibe + Simvastatin 10/80 mg Simvastatin 80mg Discharge Plan Admission Admit Date/Time: 10/04/24 14:31 Primary Reason for Your Visit: Non-STEMI. NEELIMA Attending Provider: Tone Bethea Primary Care Provider: Treva Sandoval Consulting Providers: Jenifer Valente; Jonah Bethea; Shanelle Daly Instructions Additional Instructions / Restrictions: Hold lisinopril as mentioned in the discharge instruction. Start Lasix on 10/12 after BMP in 2 to 3 days in consultation with PCP Discharge Orders/Prescriptions Prescriptions: New furosemide 40 mg Tablet 40 mg PO DAILY 30 Days Qty: 30 2RF Rx Instructions: Start on 10/12/2024 in consultation with PCP. clopidogrel 75 mg Tablet 75 mg PO DAILY 30 Days Qty: 30 1RF Rx Instructions: Discontinue if platelet count drops less than 50,000 or hemoglobin less than 8 g% aspirin 81 mg Tablet,Delayed Release (Dr/Ec) 81 mg PO BREAKFAST 30 Days Qty: 30 4RF carvedilol 3.125 mg Tablet 3.125 mg PO BID 30 Days Qty: 60 3RF Jardiance 10 mg Tablet 10 mg PO DAILY 30 Days Qty: 30 2RF Continued amlodipine 5 mg tablet 5 mg PO DAILY atorvastatin 80 MG tablet 80 mg PO QHS Patient Comments: cholesterol multivitamin with folic acid 1 TABLET tablet 1 tab PO DAILYCM Qty: 30 0RF Patient Comments: supplement omeprazole 40 MG capsule,delayed release(DR/EC) 40 mg PO DAILY Poglitasone 15 mg PO DAILY (DME) True Metrix Glucose Test Strip Strip MISCELLANEOUS DAILY Held glimepiride 2 MG tablet 4 mg PO DAILY Hold Instructions: Hold today and then start low-dose 2 mg daily because of NEELIMA. Patient Comments: blood sugar lisinopril 40 MG tablet 40 mg PO DAILY Hold Instructions: Hold for 5 days. Start with lower dose 10 mg in consultation with PCP Patient Comments: blood pressure Referrals / Follow Up: Jonah Bethea MD [Med Staff - Active Staff] - Within 1 Month Treva Sandoval NP-C [Primary Care Provider] - Within 1 Week Shanelle Daly MD [Med Staff - Consulting] - Within 1 Month Disposition Disposition (needs filled in before D/C Order can be placed): Home, Self Care Charges/Coding Visit Charges Inpatient E&M: 30506 Disch Hosp >30min
[2024-10-08 10:55] VITALS: O2SAT 97; O2SAT 98
[2024-10-08 13:00] VITALS: BP 152/52; PULSE 69; RESP 14; TEMP 36.6; O2SAT 98
== END 2024-10-08 13:46 | disposition home or self-care (01) | DRG 189 ==
LOC: ED 14:43 → PCU 15:02
PROVIDERS: Internal Medicine Cardiovascular Disease; Internal Medicine Nephrology; Admitting Provider Internal Medicine; Emergency Provider Emergency Medicine; PCP Nurse Practitioner Family; Visit Provider Internal Medicine
DX: J96.01 Acute respiratory failure with hypoxia (principal); I21.4 Non-ST elevation (NSTEMI) myocardial infarction; I50.33 Acute on chronic diastolic (congestive) heart failure; I13.0 Hypertensive heart and chronic kidney disease with heart failure and stage 1 through stage 4 chronic kidney disease, or unspecified chronic kidney disease; N17.9 Acute kidney failure, unspecified; Z66 Do not resuscitate; E11.22 Type 2 diabetes mellitus with diabetic chronic kidney disease; N18.32 Chronic kidney disease, stage 3b; E66.9 Obesity, unspecified; E78.00 Pure hypercholesterolemia, unspecified; K21.9 Gastro-esophageal reflux disease without esophagitis; E11.65 Type 2 diabetes mellitus with hyperglycemia; F41.9 Anxiety disorder, unspecified; I25.10 Atherosclerotic heart disease of native coronary artery without angina pectoris; Z68.31 Body mass index [BMI] 31.0-31.9, adult; Z11.52 Encounter for screening for COVID-19; Z79.84 Long term (current) use of oral hypoglycemic drugs; Z79.82 Long term (current) use of aspirin; Z79.899 Other long term (current) drug therapy
CPT/HCPCS: 36415; 36600; 71045; 76770; 78452; 80048; 80053; 80061; 81001; 82570; 82803; 82962; 83735; 83880; 84100; 84443; 84484; 84540; 85025; 85379; 85610; 85730; 87631; 87633; 93005; 93017; 93306; 93458; 93970; 94002; 94640; 94668; 94762; 97116; 97162; 97166; 97530; 97802; 99152; 99153; 99252; 99285; A9500; Q9957; Q9967; A4216; C1769; C1894; G0463; J1940; J2785

== ENCOUNTER 2025-03-03 06:54 | Emergency (ER) | payer MEDICARE, SELFPAY ==
[2025-03-03 06:54] VITALS: BP 172/73; PULSE 88; RESP 18; TEMP 36.7; O2SAT 96; BMI 28.6
--- NOTE | 2025-03-03 07:17 | CT_ITS ---
PROCEDURE: SPINE LUMBAR WITHOUT CONTRAST 03/03/2025 REASON FOR EXAM: PAIN TECHNIQUE: SPINE LUMBAR WITHOUT CONTRAST Coronal and Sagittal reconstruction series were provided. One or more dose reduction techniques were used (e.g., Automated exposure control, adjustment of the mA and/or kV according to patient size, use of iterative reconstruction technique RADIATION DOSE SUMMARY: CTDlvol: 16.31 MGy DLP: 588.18 mGycm FINDINGS: Vertebrae: Normal height. Multilevel loss of disc height endplate spondylosis. Degenerative disc disease levels vacuum disc disease at L4-L5 with endplate disc cirrhosis. Fairly well preserved AP alignment. Alignment: Mild right convex scoliosis No bony encroachment on the central canal or neural foramina. Facet joint arthrosis CT/Spine Lumbar without Contrast IMPRESSION: No acute process. Multilevel degenerative disc disease, endplate spondylosis, fairly well rib AP alignment Reading [facility]
--- NOTE | 2025-03-03 07:18 | ED.VIS.BACK ---
HPI History of Present Illness Chief Complaint: Back Narrative Narrative: 89-year-old female presents with her daughter and son-in-law because of low back pain that she has had for weeks. They states that recently she moved and is now living independently with a relative. She states that she is having low back pain intermittently for the last few weeks. Over the last few days, it is worse especially at nighttime. She is taking Tylenol without relief. She denies any fevers or chills, no nausea or vomiting. Pain radiates down to her left foot and is mainly on the left side and in her low back. No recent falls. No loss of bowel or bladder but she does states she has urinary frequency. She presents because of the increased pain in her low back radiating down to her left foot that is worse with walking and movement. [facility] Medical History Chronic kidney disease, stage 3b Acute diastolic (congestive) heart failure NSTEMI (non-ST elevated myocardial infarction) Anemia Diabetes Non-smoker Skin cancer Dehydration GERD (gastroesophageal reflux disease) Acute blood loss anemia Closed left hip fracture HTN (hypertension) Hypercholesteremia Type II diabetes mellitus Home Medications ?Medication ?Instructions ?Recorded ?Last Taken ?Type multivitamin with folic acid 400 1 tab PO DAILYCM vitamin #30 tabs 02/11/15 03/02/25 Rx mcg tablet blood sugar diagnostic (True 10/04/24 Unknown History Metrix Glucose Test Strip) aspirin 81 mg tablet,delayed 81 mg PO BREAKFAST 30 days #30 tabs 10/08/24 03/02/25 Rx release atorvastatin 40 mg tablet 40 mg PO QHS #90 tabs 10/12/24 03/02/25 Rx carvedilol 3.125 mg tablet 3.125 mg PO BID 30 days #180 tabs 10/12/24 03/02/25 Rx clopidogrel 75 mg tablet 75 mg PO DAILY 30 days #90 tabs 10/12/24 03/02/25 Rx empagliflozin 10 mg tablet 10 mg PO DAILY 30 days #90 tabs 10/12/24 03/02/25 Rx (Jardiance) nitroglycerin 0.4 mg sublingual 0.4 mg sublingual Q5-15M PRN chest 01/01/25 Unknown Rx tablet pain #20 tabs omeprazole 20 mg capsule,delayed 20 mg PO QODAY 01/01/25 03/02/25 History release amlodipine 10 mg tablet 10 mg PO DAILY 03/03/25 03/02/25 History furosemide 20 mg tablet 20 mg PO DAILY 03/03/25 03/02/25 History isosorbide mononitrate 30 mg 30 mg PO DAILY awaiting mail in 03/03/25 03/02/25 History tablet,extended release 24 hr RX, pt out of med losartan 100 mg tablet 100 mg PO DAILY 03/03/25 03/02/25 History tramadol 50 mg tablet 50 mg PO Q6H PRN pain 3 days #12 03/03/25 Unknown Rx tabs Allergy/AdvReac Type Severity Reaction Status Date / Time metformin Allergy Hives Verified 03/03/25 06:54 morphine AdvReac Nausea Verified 03/03/25 06:54 oxycodone (Oxycodone) AdvReac Nausea Verified 03/03/25 06:54 Family History Sister Breast cancer Colon cancer Diabetes Uncle Heart disease Brother Kidney disease Surgical History History of appendectomy History of cholecystectomy History of hip replacement History of shoulder replacement S/P ORIF (open reduction internal fixation) fracture Social History household members: none current occupational status: retired Smoking Status: Never smoker alcohol intake: never substance use type: does not use ROS ROS ED ROS Narrative Review of systems positive for low back pain, initially midline but now more left-sided with radiation to left foot. No fevers or chills, no nausea or vomiting. No loss of bowel or bladder. No saddle anesthesia. Worse with movement and walking. EXAM Physical Exam Narrative Exam Narrative: Afebrile. Vital signs noted. Nontoxic-appearing. Cardiovascular examination regular rate and rhythm. Lungs are clear to auscultation bilaterally. Abdomen is soft, nontender, with positive bowel sounds. No vertebral point tenderness or bony step-off of the lumbar spine. Mild tenderness to palpation left sciatic notch. Neuro vastly intact bilateral lower extremities with patellar DTRs equal and symmetric. EHL intact bilaterally. Positive pain in the low back with raising of left leg but no cross symptoms. Const Vital Signs: 03/03/25 06:54 03/03/25 06:58 Temperature 98.0 F Temperature Source Oral Pulse Rate 88 Respiratory Rate 18 Respiratory Effort Normal Non-Labored Respiratory Pattern Normal Blood Pressure 172/73 H Blood Pressure Mean 106 Pulse Ox 96 Oxygen Delivery Method Room Air MDM MDM MDM Narrative Medical decision making narrative: Differential diagnosis includes but not limited to spinal stenosis versus sciatica. While she has urinary frequency, she may have a UTI. I have low suspicion clinically for cauda equina syndrome as she has no red flag symptoms. I discussed with them the use of analgesics. She states she has history of chronic kidney disease so does not want to take an NSAID. I discussed with her narcotic pain medication and she declined. It was agreed upon through shared decision making that she would like to try 1 tramadol 50 mg orally. Urinalysis will be obtained to rule out infection. CT imaging of the lumbar spine will be obtained to help rule out fracture. I reviewed her urinalysis and it is negative for infection with 0 WBCs and 0 bacteria. I do not feel antibiotics are indicated. I reviewed the radiology report of the CT of the lumbar spine and there is multilevel degenerative disc disease. No evidence of an acute fracture. Upon repeat examination, she states that she feels unchanged. Her daughter inquired about a muscle relaxer. I we will give her a one-time dose. It was decided that instead of Valium that she will be given 1 Norflex here. I will write her prescription for tramadol which she can alternate between this and Tylenol. I discussed with the patient and her family the possibility of observation or admission for PT OT eval and possible placement in rehab but she declined. She was able to ambulate with a walker here and her family states that they have a walker at home which she can use. She will follow-up with her primary care provider. Return instructions to the emergency department were reviewed. Disposition is discharged home in stable condition. History & Record Review Discussion w/independent historian: Patient and Family Lab Data Attestation: I reviewed the patient's lab results. Labs: Laboratory Results - last 24 hr 03/03/25 07:30 Urine Color Yellow Urine Clarity Clear Urine pH 7.0 Ur Specific [place] 1.005 Urine Protein 30 H Urine Glucose (UA) 250 H Urine Ketones Negative Urine Occult Blood 10 H Urine Nitrite Negative Urine Bilirubin Negative Urine Urobilinogen Normal Ur Leukocyte Esterase Negative Urine RBC 0 SEEN Urine WBC 0 SEEN Ur Squamous Epith Cells 0 SEEN Urine Bacteria 0 SEEN Urine Mucus 0 SEEN Radiography Diagnostic Testing: Clinical Impression(s) from Imaging Studies Lumbar Spine CT 03/03/25 07:17 IMPRESSION: No acute process. Multilevel degenerative disc disease, endplate spondylosis, fairly well rib AP alignment Reading Location: [facility] Discharge Plan Triage Chief Complaint: Back ED Provider: Julio Pickens Dx/Rx/DC Orders Clinical Impression: Back pain, Left lumbar radiculopathy Instructions: ED Back Pain (Acute or Chronic), ED Sciatica Prescriptions: New tramadol 50 mg tablet 50 mg PO Q6H PRN (Reason: pain) 3 Days Qty: 12 0RF No Action atorvastatin 40 mg tablet 40 mg PO QHS Qty: 90 3RF carvedilol 3.125 mg tablet 3.125 mg PO BID 30 Days Qty: 180 3RF Jardiance 10 mg tablet 10 mg PO DAILY 30 Days Qty: 90 3RF clopidogrel 75 mg tablet 75 mg PO DAILY 30 Days Qty: 90 3RF Rx Instructions: Discontinue if platelet count drops less than 50,000 or hemoglobin less than 8 g% omeprazole 20 mg capsule,delayed release(DR/EC) 20 mg PO QODAY nitroglycerin 0.4 mg tablet, sublingual 0.4 mg sublingual Q5-15M PRN (Reason: chest pain) Qty: 20 3RF Rx Instructions: do not exceed 3 doses per episode multivitamin with folic acid 1 TABLET tablet 1 tab PO DAILYCM Qty: 30 0RF Patient Comments: supplement (DME) True Metrix Glucose Test Strip Strip MISCELLANEOUS DAILY aspirin 81 mg Tablet,Delayed Release (Dr/Ec) 81 mg PO BREAKFAST 30 Days Qty: 30 4RF furosemide 20 mg tablet 20 mg PO DAILY isosorbide mononitrate 30 mg tablet extended release 24 hr 30 mg PO DAILY amlodipine 10 mg tablet 10 mg PO DAILY losartan 100 mg tablet 100 mg PO DAILY Primary Care Provider: Jose Alberto Stanton Referrals: Treva Sandoval, [employer] [Non-Staff] - Activity Restrictions/Additional Instructions: Use a walker to help you ambulate. Alternate between Tylenol and tramadol for your back pain. Follow-up with your primary care provider. Return with fever, inability to perform your activities of daily living, new or worsening symptoms. Print Language: Upper Sorbian Disposition Disposition: Home, Self Care
--- OUTSIDE RECORDS SUMMARY | 2025-03-03 07:24 | XMS RPT_ITS | CCD ---
Author Organization [facility] Care Team Providers Care Systems Security Consultant Name Role Phone INSHA DONAHUE III Unavailable Unavailable RENATOL, NISHA Gagnon III Unavailable Unavailable RENATOLNISHA III Unavailable Unavailable Blaz PETROLEUM SUPPLY SPECIALIST.BERNARDO, Khari JAMISON Primary Care Provider Allie Stanton MD Primary Care Provider Allie Stanton MD Primary Care Provider Blamike PETROLEUM SUPPLY SPECIALIST.BERNARDO, Khari JAMISON Primary Care Provider Tannhof PETROLEUM SUPPLY SPECIALIST.Treva CHANG Unavailable Parminder PETROLEUM SUPPLY SPECIALIST.Imtiaz CHANG Unavailable Chinyere Pabon RN Unavailable NISHA DONAHUE MD, III Primary Care Physician Luis PT, Lety Unavailable Unavailable JONAH BASHIR MD Attending Unavailable NISHA DONAHUE MD, III Primary Care Unavailabl e Jenifer Valente Consulting Unavailable Jonah Bashir Attending Unavailable Jenifer Valente Admitting Unavailable Tannhof, Treva Primary Care Unavailable [place] Jonah Consulting Unavailable [place] T[place] Consulting Unavailable [place] Tone Attending Unavailable Tanphaichitr, Natthavat Consulting Unavaila ble Jonah Bashir Attending Unavailable Tannhof, Treva Primary Care Unavailable Tannhof, Treva Referring Unavailable Lake Jonah Attending Unavailable Tannhof, Treva Primary Care Unavailable Tannhof, Treva Referring Unavailable Lake, Jonah Attending Unavailable Tannhof, Treva Primary Care Unavailable Jenifer Valente Attending Unavailable Jenifer Valente Consulting Unavailable Tannhof, Treva Primary Care Unavailable Jenifer Valente Admitting Unavailable Tone Bethea Attending Unavailable Jonah Bashir Consulting Unavailable TanShanelle espinoza Consulting Unavaila yariel Sandoval PETROLEUM SUPPLY SPECIALIST.Treva CHANG Unavailable Chinyere Pabon RN Unavailable ELDERSALCK, ALLIE D Primary Care Unavailable TREVA SANDOVAL Referring Unavailabl e TREVA SANDOVAL Attending Unavailabl e ELDERBROCK, ALLIE D Primary Care Unavailable TANNHOFTREVA Referring Unavailabl e ELDERBROCK, ALLIE D Primary Care Unavailable ELDERBROCK, ALLIE D Primary Care Unavailable TANNHOF, TREVA LEE Referring Unavailabl e ELDERBROCK, ALLIE D Primary Care Unavailable IMTIAZ HODGE Attending Unavailable ELDERBROCK, ALLIE D Primary Care Unavailable TANNHOF, TREVA LEE Referring Unavailabl e ELDERBROCK, ALLIE D Primary Care Unavailable TANNTREVA GOODWIN Attending Unavailabl e ELDERBROCK, ALLIE D Primary Care Unavailable TANNHOTREVA Menjivar Attending Unavailabl e ELDERBROCK, ALLIE D Primary Care Unavailable TANNHOTREVA Menjivar Attending Unavailabl Cathy Ford RN Unavailable Unavailable Allergies Allergy Classification Reported Allergen(s) Allergy Type Date of Onset Reaction(s) Facility (20 sources) lansoprazole; Translations: [LANSOPRAZOLE] Drug Allergy 07-20-2005 [facility] (20 sources) metFORMIN; Translations: [METFORMIN] Drug Allergy 03-13-2013 Diarrhea [facility] (20 sources) Morphine; Translations: [MORPHINE] Drug Allergy 02-14-2016 GI Upset [facility] (20 sources) oxyCODONE; Translations: [OXYCODONE] Drug Allergy 02-14-2016 GI Upset [facility] (1 source) Acetaminophen / oxyCODONE; Translations: [acetaminophen-oxy codone] Drug Allergy [facility] Comment on above: Makes pt feel sick t o stomach, has thrown up after taking medication. (1 source) metFORMIN Drug Allergy 01-01-2025 [facility] (1 source) Morphine Drug Allergy 01-01-2025 [facility] (1 source) oxyCODONE Drug Allergy 01-01-2025 [facility] Medications Current Medications Medication Drug Class(es) Dates Sig (Normalized) Sig (Original) acetaminophen 325 mg oral tablet (1 source) Start: 06-21-2015 Tylenol 325 mg oral tablet Dose : 650 mg = 2 tab(s), Oral, q4h, PRN Pain, scale 1-3, 0 Refill(s) Start Date: 06/21/15 Status: Ordered Repeat number: 1 amLODIPine 5 mg oral tablet (18 sources) Dihydropyridine Calcium Channel Stalin Start: 06-13-2015 End: 10-24-2025 take 1 tablet by mouth once daily amLODIPine (NORVASC) 5 mg tablet Indications: Essential hypertension, benign Take 1 tablet by mouth once daily. 90 tablet 3 10/24/2024 10/24/2025 Active aspirin 81 mg delayed release oral tablet (13 sources) Platelet Aggregation Inhibitor, Nonsteroidal Anti-inflammatory Drug Start: 06-13-2015 aspirin 81 mg oral delayed release tablet Dose : 81 mg = 1 tab(s), Oral, qDay, 0 Refill(s) Start Date: 06/13/15 Status: Ordered Repeat number: 1 atorvastatin 80 mg oral tablet (20 sources) HMG-CoA Reductase Inhibitor Start: 09-30-2023 End: 09-14-2024 take 1 tablet by mouth once daily at bedtime for hyperlipidemia atorvastatin (LIPITOR) 80 mg tablet Indications: Hyperlipidemia LDL goal Take 1 tablet by mouth daily at bedtime. For cholesterol. 90 tablet 3 09/14/2024 Active Start: 06-13-2015 End: 10-19-2022 take 1 tablet by mouth once daily at bedtime for hyperlipidemia atorvastatin (LIPITOR) 80 mg tablet Indications: Hyperlipidemia LDL goal Take 1 tablet by mouth daily at bedtime. For cholesterol. 90 tablet 3 10/08/2021 10/19/2022 Discontinued Comment on above: Take 1 tablet by candice th daily at bedtime. For cholesterol. blood glucose control high&low(FREESTYLE CONTROL SOLN) (20 sources) Start: 12-04-19 09 blood glucose control high&low(FREESTYLE CONTROL SOLN) use as directed 1 0 12/03/2008 Active Comment on above: use as directed carvedilol 3.125 mg oral tablet (12 sources) alpha-Adrenergic Stalin, beta-Adrenergic Stalin Start: 10-09-19 25 take 1 tablet by mouth twice daily at mealtime carvedilol (COREG) 3.125 mg tablet Take 3.125 mg by mouth two times a day with meals. 10/09/2024 Active clopidogrel 75 mg oral tablet (12 sources) P2Y12 Platelet Inhibitor Start: 10-09-19 take 1 tablet by mouth once daily clopidogrel (PLAVIX) 75 mg tablet Take 75 mg by mouth once daily. 10/09/2024 Active empagliflozin 10 mg oral tablet (12 sources) Sodium-Glucose Cotransporter 2 Inhibitor Start: 10-09-19 take 1 tablet by mouth once daily at breakfast JARDIANCE 10 mg tablet Take 10 mg by mouth daily with breakfast. 10/09/2024 Active furosemide 20 mg oral tablet (13 sources) Loop Diuretic Start: 12-29-19 End: 12-29-19 take 1 tablet by mouth once daily furosemide (LASIX) 20 mg tablet Take 1 tablet by mouth once daily. 90 tablet 3 12/28/2024 12/28/2025 Active Start: 12-19-2024 End: 06-17-2025 take 0.5 tablet by mouth once daily furosemide (LASIX) 40 mg tablet Take 0.5 tablets by mouth once daily. 30 tablet 2 12/19/2024 06/17/2025 Active Start: 10-09-2024 End: 12-19-2024 take 1 tablet by mouth once daily furosemide (LASIX) 40 mg tablet Take 40 mg by mouth once daily. 10/09/2024 12/19/2024 Discontinued 24 hr isosorbide mononitrate 30 mg extended release oral tablet (2 sources) Nitrate Vasodilator take 1 tablet by mouth once daily, then take 1 tablet by mouth every twenty-four hours isosorbide mononitrate ER (IMDUR) 30 mg 24 hr tablet Take 30 mg by mouth once daily. Active losartan potassium 100 mg oral tablet (2 sources) Angiotensin 2 Receptor Stalin Start: 01-12-20 take 1 tablet by mouth once daily losartan (COZAAR) 100 mg tablet Take 100 mg by mouth once daily. 01/11/2025 Active meloxicam 15 mg oral tablet (10 sources) Nonsteroidal Anti-inflammatory Drug Start: 02-18-20 End: 04-18-20 take 1 tablet by mouth once daily at mealtime meloxicam (MOBIC) 15 mg tablet Indications: Bilateral hand pain Take 1 tablet by mouth once daily. With food. 30 tablet 5 02/17/2023 04/18/2023 Active Start: 10-08-2022 End: 12-07-2022 take 1 tablet by mouth once daily at mealtime meloxicam (MOBIC) 15 mg tablet Indications: Bilateral hand pain Take 1 tablet by mouth once daily. With food. 30 tablet 1 10/08/2022 12/07/2022 Active Start: 09-03-2022 End: 10-03-2022 take 1 tablet by mouth once daily at mealtime meloxicam (MOBIC) 15 mg tablet Indications: Bilateral hand pain Take 1 tablet by mouth once daily. With food. 30 tablet 0 09/03/2022 10/03/2022 Active Start: 07-22-2022 End: 09-03-2022 take 1 tablet by mouth once daily at mealtime meloxicam (MOBIC) 7.5 mg tablet Indications: Intermittent pain and swelling of hand Take 1 tablet by mouth once daily. With food. 14 tablet 2 07/22/2022 09/03/2022 Discontinued Comment on above: Take 1 tablet by candice th once daily. With food. Multiple Vitamins oral tablet (1 source) Start: 06-13-2015 take 1 tablet by mouth once daily Multiple Vitamins oral tablet Dose = 1 tab(s), Oral, qDay, # 90 tab(s), 0 Refill(s) Start Date: 06/13/15 Status: Ordered Quantity: 90.0 Unit: tab(s) Repeat number: 1 MULTIVITS,TH W-CA,FE,OTH MIN (MULTIVITAMIN AND MINERAL ORAL) (20 sources) take 1 tablet by mouth once daily MULTIVITS,TH W-CA,FE,OTH MIN (MULTIVITAMIN AND MINERAL ORAL) Take 1 tablet by mouth once daily. Active take 1 tablet by mouth once shayla y MULTIVITS,TH W-CA,FE,OTH MIN (MULTIVITAMIN AND MINERAL ORAL) Take 1 tablet by mouth once daily. 0 Active Comment on above: Take 1 tablet by candice th once daily. omeprazole 20 mg delayed release oral capsule (20 sources) Proton Pump Inhibitor Start: 02-02-20 End: 11-16-19 take 1 capsule by mouth every other day before breakfast omeprazole (PRILOSEC) 20 mg capsule Indications: Gastroesophageal reflux disease without esophagitis take 1 capsule by mouth every other day 1/2 HOUR BEFORE BREAKFAST 45 capsule 3 11/16/2024 Active Start: 10-07-2020 End: 02-02-2024 take 1 capsule by mouth once daily before breakfast omeprazole (PRILOSEC) 20 mg capsule Indications: Gastroesophageal reflux disease without esophagitis take 1 capsule by mouth once daily 1/2 HOUR BEFORE BREAKFAST 90 capsule 3 11/28/2021 01/25/2023 Discontinued Comment on above: take 1 capsule by [facility] once daily 1/2 HOUR BEFORE BREAKFAST ondansetron 4 mg oral tablet (1 source) Serotonin-3 Receptor Antagonist Start: 5 Zofran 4 mg oral tablet Dose : 4 mg = 1 tab(s), Oral, q8h, PRN as needed for nausea/vomiting, # 10 tab(s), 0 Refill(s) Start Date: 06/19/15 Status: Ordered Quantity: 10.0 Unit: tab(s) Repeat number: 1 pantoprazole 40 mg delayed release oral tablet (1 source) Proton Pump Inhibitor Start: 5 Protonix 40 mg oral enteric coated tablet Dose : 40 mg = 1 tab(s), Oral, BIDAC, # 60 tab(s), 0 Refill(s) Start Date: 06/21/15 Status: Ordered Quantity: 60.0 Unit: tab(s) Repeat number: 1 Miralax (20 sources) Osmotic Laxative Start: 5 take 17 doses by mouth once daily MiraLax oral powder for reconstitution Dose : 17 g =, Oral, qDay, 0 Refill(s) Start Date: 06/13/15 Status: Ordered Repeat number: 1 Start: 05-31-2015 End: 09-14-2024 polyethylene glycol 3350 (CT RALAX) 17 gram/dose powder Take one scoop daily with glass of juice/water/etc. 1 Bottle 0 05/31/2015 09/14/2024 Discontinued (Course of therapy completed) Comment on above: Take one scoop daily with glass of juice/water/etc. Povidone (17 sources) Start: 09-14-2024 End: 09-14-2025 povidone, PF, (THERESA HOPE,) 0.5 % drop Indications: Dry eye Use 1 Drop in eyes three times a day. 10 mL 5 09/14/2024 09/14/2025 Active Completed/Discontinued Medications Medication Drug Class(es) Dates Sig (Normalized) Sig (Original) alendronic acid 70 mg oral tablet (1 source) Bisphosphonate Start: 11-18-2020 End: 11-27-2021 take 1 tablet by mouth every week alendronate (FOSAMAX) 70 mg tablet Indications: Osteoporosis without current pathological fracture, unspecified osteoporosis type Take 1 tablet by mouth one time a week. Take with a full glass of water, on an empty stomach; do NOT lie down for 30minutes. 12 tablet 3 11/18/2020 11/27/2021 Discontinued (Discontinued by Patient) glimepiride 1 mg oral tablet (20 sources) Sulfonylurea Start: 10-22-2022 End: 12-13-2025 glimepiride (AMARYL) 1 mg tablet Indications: 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 3 chronic kidney disease, without long-term current use of insulin (HCC) Take 1 tablet by mouth daily with breakfast. 90 tablet 3 12/18/2024 01/29/2025 Discontinued (Course of therapy completed) Start: 10-08-2021 End: 07-22-2022 take 1 tablet by mouth once daily at breakfast glimepiride (AMARYL) 2 mg tablet Take 1 tablet by mouth daily with breakfast. 90 tablet 3 10/08/2021 07/22/2022 Discontinued Start: 06-13-2015 Amaryl 4 mg or al tablet Dose : 4 mg = 1 tab(s), Oral, qDay, # 90 tab(s), 0 Refill(s) Start Date: 06/13/15 Status: Ordered Quantity: 90.0 Unit: tab(s) Repeat number: 1 Comment on above: Take 1 tablet by candice th daily with breakfast. hydroCHLOROthiazide 12.5 mg oral capsule (20 sources) Thiazide Diuretic Start: 2023 End: 2023 take 1 capsule by mouth once daily hydroCHLOROthiazide 12.5 mg capsule Indications: Essential hypertension, benign Take 1 capsule by mouth once daily. 90 capsule 3 09/30/2023 07/28/2024 Discontinued Start: 10-08-2021 End: 10-19-2022 take 1 capsule by mouth once daily hydroCHLOROthiazide 12.5 mg capsule Indications: Essential hypertension, benign Take 1 capsule by mouth once daily. 90 capsule 3 10/08/2021 10/19/2022 Discontinued Comment on above: Take 1 capsule by [facility] once daily. lisinopril 40 mg oral tablet (20 sources) Angiotensin Converting Enzyme Inhibitor Start: 4 End: 5 take 1 tablet by mouth once daily lisinopril (ZESTRIL) 40 mg tablet Indications: Essential hypertension, benign Take 1 tablet by mouth once daily. 90 tablet 3 09/14/2024 01/29/2025 Discontinued (Course of therapy completed) Start: 06-13-2015 End: 10-19-2022 take 1 tablet by mouth once daily lisinopril (ZESTRIL) 40 mg tablet Indications: Essential hypertension, benign Take 1 tablet by mouth once daily. 90 tablet 3 10/08/2021 10/19/2022 Discontinued Comment on above: Take 1 tablet by candice once daily. 24 hr metoprolol succinate 25 mg extended release oral tablet (16 sources) beta-Adrenergic Stalin Start: 09-14-20 24 End: 03-13-20 25 take 1 tablet by mouth once daily metoprolol succinate ER (TOPROL XL) 25 mg 24 hr tablet Indications: Essential hypertension, benign Take 1 tablet by mouth once daily. 30 tablet 5 09/14/2024 01/29/2025 Discontinued (Course of therapy completed) pioglitazone 15 mg oral tablet (20 sources) Peroxisome Proliferator Receptor alpha Agonist, Peroxisome Proliferator Receptor gamma Agonist, Thiazolidinedione Start: 09-30-19 24 End: 01-30-20 25 take 1 tablet by mouth once daily pioglitazone (ACTOS) 15 mg tablet Take 1 tablet by mouth once daily. 90 tablet 3 09/14/2024 01/29/2025 Discontinued (Course of therapy completed) Start: 10-08-2021 End: 10-19-2022 take 1 tablet by mouth once daily pioglitazone (ACTOS) 15 mg tablet Take 1 tablet by mouth once daily. 90 tablet 3 10/08/2021 10/19/2022 Discontinued Comment on above: Take 1 tablet by candice once daily. tiZANidine 4 mg oral tablet (11 sources) Central alpha-2 Adrenergic Agonist Start: 3 End: 4 take 1 tablet by mouth every eight hours as needed tiZANidine (ZANAFLEX) 4 mg tablet Take 1 tablet by mouth every 8 hours as needed (muscle spasms). 20 tablet 1 11/20/2022 07/28/2024 Discontinued (Course of therapy completed) Comment on above: Take 1 tablet by candice th every 8 hours as needed (muscle spasms). Problems Active Problems Problem Classification Problem Date Documented Date Episodic/Chronic Acute and unspecified renal failure (1 source) Acute kidney failure, unspecified; Translations: [Acute kidney failure, unspecified] Onset: 10-08-2024 Episodic Acute myocardial infarction (1 source) Non-ST elevation (NSTEMI) myocardial infarction; Translations: [Non-ST elevation (NSTEMI) myocardial infarction] Onset: 10-16-2024 Chronic Chronic kidney disease (6 sources) Chronic kidney disease stage 3B ; Translations: [Stage 3b chronic kidney disease (HCC)] Chronic Chronic kidney disease (2 sources) Chronic kidney disease; Translations: [Chronic kidney disease, stage 3b] Onset: 10-08-2024 Congestive heart failure; nonhypertensive (5 sources) Congestive heart failure; Translations: [Heart failure, unspecified] Onset: 10-10-2024 10-09-2024 Chronic Coronary atherosclerosis and other heart disease (1 source) Atherosclerotic heart disease of [place] coronary artery without angina pectoris; Translations: [Atherosclerotic heart disease of [place] coronary artery without angina pectoris] Onset: 01-01-2025 Chronic Diabetes mellitus with complications (20 sources) Type 2 diabetes mellitus; Translations: [Type 2 diabetes mellitus with diabetic chronic kidney disease] Onset: 07-21-2005 09-15-2021 Chronic Diabetes mellitus without complication (7 sources) Type 2 diabetes mellitus without complication; Translations: [Type 2 diabetes mellitus without complications] Onset: 10-16-2024 Chronic Diabetes mellitus without complication (1 source) Diabetes mellitus without complication; Translations: [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 3 chronic kidney disease, without long-term current use of insulin ([facility])] Onset: 09-15-2021 Disorders of lipid metabolism (20 sources) Hyperlipidemia; Translations: [Hyperlipidemia, unspecified] Onset: 02-21-2016 02-21-2016 Chronic Esophageal disorders (20 sources) Gastroesophageal reflux disease; Translations: [Gastro-esophageal reflux disease without esophagitis] Onset: 09-28-2017 09-28-2017 Chronic Essential hypertension (20 sources) Benign essential hypertension; Translations: [Essential (primary) hypertension] Onset: 07-30-2010 07-30-2010 Chronic Genitourinary symptoms and ill-defined conditions (20 sources) Genuine stress incontinence; Translations: [Stress incontinence (female) (male)] Onset: 09-28-2017 09-28-2017 Chronic Nausea and vomiting (1 source) Vomiting 06-19-2015 Episodic Nonmalignant breast conditions (20 sources) Fibrocystic disease of breast; Translations: [Diffuse cystic mastopathy of unspecified breast] Onset: 07-21-2005 07-21-2005 Chronic Nutritional deficiencies (20 sources) Vitamin D deficiency; Translations: [Vitamin D deficiency, unspecified] Onset: 08-20-2011 08-20-2011 Chronic Occlusion or stenosis of precerebral arteries (20 sources) Arteriosclerosis of carotid artery; Translations: [Occlusion and stenosis of bilateral carotid arteries] Onset: 10-19-2014 10-19-2014 Chronic Osteoarthritis (1 source) Arthritis of hand; Translations: [Primary osteoarthritis, unspecified hand] Chronic Osteoporosis (20 sources) Osteoporosis; Translations: [Age-related osteoporosis without current pathological fracture] Onset: 03-17-2016 03-17-2016 Chronic Other aftercare (1 source) Post-discharge follow-up; Translations: [Encounter for follow-up examination after completed treatment for conditions other than malignant neoplasm] 10-09-2024 Episodic Other and ill-defined heart disease (1 source) Other ill-defined heart diseases; Translations: [Other ill-defined heart diseases] Onset: 01-01-2025 Chronic Other connective tissue disease (5 sources) Pain of bilateral hands; Translations: [Pain in right hand] Episodic Other eye disorders (1 source) Dry eyes; Translations: [Dry eye syndrome of unspecified lacrimal gland] 09-14-2024 Episodic Other lower respiratory disease (1 source) Shortness of breath; Translations: [Shortness of breath] Onset: 10-16-2024 Episodic Other non-traumatic joint disorders (2 sources) Pain in right knee; Translations: [Pain in joint, lower leg] Episodic Other non-traumatic joint disorders (1 source) Hip pain; Translations: [Pain in left hip] 10-31-2021 Episodic Other skin disorders (2 sources) Skin lesion; Translations: [Disorder of the skin and subcutaneous tissue, unspecified] 01-29-2025 Episodic Other skin disorders (1 source) Disorder of the skin and subcutaneous tissue, unspecified; Translations: [Skin lesion] Onset: 01-29-2025 Episodic Residual codes; unclassified (1 source) Bilateral lower limb edema; Translations: [Localized edema] 09-14-2024 Episodic Respiratory failure; insufficiency; arrest (adult) (2 sources) Acute respiratory failure with hypoxia; Translations: [Acute respiratory failure with hypoxia] Onset: 10-16-2024 Episodic Screening and history of mental health and substance abuse codes (2 sources) Encounter for screening for depression; Translations: [Encounter for screening examination for other mental health and behavioral disorders] Onset: 01-29-2025 Episodic Spondylosis; intervertebral disc disorders; other back problems (20 sources) Degeneration of cervical intervertebral disc; Translations: [Other cervical disc degeneration, unspecified cervical region] Onset: 09-29-2018 09-29-2018 Chronic Past or Other Problems Problem Classification Problem Date Documented Date Episodic/Chronic Abdominal pain (20 sources) Right upper quadrant pain; Translations: [Right upper quadrant pain] Onset: 06-29-2014 Resolved: 10-19-2014 10-19-2014 Episodic Acute posthemorrhagic anemia (20 sources) Acute posthemorrhagic anemia; Translations: [Acute posthemorrhagic anemia] Onset: 09-28-2017 Resolved: 09-29-2018 09-29-2018 Episodic Allergic reactions (20 sources) Contact dermatitis; Translations: [Unspecified contact dermatitis, unspecified cause] Onset: 03-09-2013 Resolved: 03-22-2019 03-22-2019 Episodic Biliary tract disease (20 sources) Gallstone; Translations: [Calculus of gallbladder without cholecystitis without obstruction] Onset: 06-29-2014 Resolved: 10-19-2014 10-19-2014 Episodic Fracture of neck of femur (hip) (20 sources) Closed fracture of hip; Translations: [Fracture of unspecified part of neck of unspecified femur, initial encounter for closed fracture] Onset: 09-20-2014 Resolved: 03-22-2019 03-22-2019 Episodic Comment on above: Left Other aftercare (1 source) Encounter for follow-up examination after completed treatment for conditions other than malignant neoplasm; Translations: [Hospital discharge follow-up] Onset: 10-11-2024 Episodic Other and unspecified benign neoplasm (20 sources) History of polyp of colon; Translations: [Personal history of colonic polyps] Onset: 10-13-2016 10-13-2016 Episodic Other connective tissue disease (20 sources) Lateral epicondylitis; Translations: [Lateral epicondylitis, unspecified elbow] Onset: 08-18-2011 Resolved: 07-01-2015 07-01-2015 Episodic Other connective tissue disease (20 sources) Trochanteric bursitis of left hip; Translations: [Trochanteric bursitis, left hip] Onset: 12-07-2016 Resolved: 03-22-2019 03-22-2019 Episodic Other lower respiratory disease (20 sources) Chronic cough; Translations: [Chronic cough] Onset: 08-08-2009 Resolved: 08-30-2015 08-30-2015 Episodic Other nervous system disorders (20 sources) Carpal tunnel syndrome; Translations: [Carpal tunnel syndrome, unspecified upper limb] Onset: 09-29-2013 Resolved: 03-22-2019 03-22-2019 Chronic Other screening for suspected conditions (not mental disorders or infectious disease) (8 sources) Patient encounter status; Translations: [Encounter for screening mammogram for malignant neoplasm of breast] Onset: 10-11-2024 Episodic Other skin disorders (20 sources) Eruption; Translations: [Rash and other nonspecific skin eruption] Onset: 03-09-2013 Resolved: 09-29-2018 09-29-2018 Episodic Other skin disorders (20 sources) Actinic keratosis; Translations: [Actinic keratosis] Onset: 03-09-2013 Resolved: 03-22-2019 03-22-2019 Episodic Other skin disorders (20 sources) Asteatosis cutis; Translations: [Xerosis cutis] Onset: 03-09-2013 Resolved: 03-22-2019 03-22-2019 Episodic Residual codes; unclassified (20 sources) Forgetful; Translations: [Other general symptoms and signs] Onset: 08-30-2015 08-30-2015 Episodic Spondylosis; intervertebral disc disorders; other back problems (20 sources) Lumbar disc prolapse with radiculopathy; Translations: [Intervertebral disc disorders with radiculopathy, lumbar region] Onset: 02-25-2011 02-25-2011 Episodic Results Test Name Value Interpretation Reference Range Facility [facility] 01-29-2025 CNOV Office Visit (FAMPWS ) LUCILLE THURMAN ([id number]) 1935 F Date Time Provider Department 01/29/25 9:00 AM [facility], we recorded the following information about you: Pulse Respiration Blood pressure Weight 67/minute 16/minute 136/75 70.3 kg Imtiaz Hodge APRN.PUBLIC RELATIONS OFFICER 01/30/2025 11:37 AM Addendum Lucille Thurman is a 89 year old female here for a Medicare wellness visit. Medicare Health Risk Assessment General Health Good Exercise: Minutes/Day 0 min Exercise: Days/Week 0 days Alcohol: Daily Use Never Alcohol: Drinks/Day Patient does not drink Alcohol: 6 or more drinks Never Feel off balance No Concerns: Teeth/Dentures No Concerns: Sexual function No Troubled by feelings None of the above Frequency: Eating healthy diet Several days ADLs requiring help Taking medications Safety precautions in home/vehicle Yes Smoke, vape, chews tobacco No Difficulty hearing No Difficulty seeing No Current Providers Specialists: I have reviewed specialist-related care of the patient in the medical record. Medical/Family history review Reviewed and updated problem list, medical/surgical/family /social history, medications, and allergies. Opioid use review Opioid Medications (last 90 days) No data to display Anxiety/Depression screening PHQ-2 Score: 0 (Lower risk for depression) DYLON-2 Score: 0 (Lower risk for anxiety) Recommendation: no further intervention at this time Cognitive screening Mini Cog Score: 4 Cognitive screening reviewed and No further action needed (score 3-5). Functional Observation Was the patient's Timed Up AND Go test unsteady or >= 12 seconds? No Advance Care Planning Surrogate decision maker documented and/or advance directives scanned in chart Measurements BP 136/75 (BP Position: Sitting) Pulse 67 Resp 16 Wt 70.3 kg (155 lb) SpO2 99% BMI 27.46 kg/m? Vision Screening: Follows with optometry/ophthalmology Assessment/Plan Medicare annual wellness visit, subsequent (Z00.00) - Counseled on healthy diet and regular exercise - Fall avoidance information provided - Personalized prevention plan provided Chief Complaint Patient presents with: Medicare Wellness Exam: 6 mo HPI Lucille Thurman is a 89 year old female who presents here today for above reason. Lucille is a 89-year-old female, with a history of DM, presenting for a follow-up visit, accompanied by her son, who is providing additional history. Lucille reports a recent onset of right foot paresthesia described as walking on needles, primarily occurring when transitioning from sitting to standing or after prolonged standing. Symptoms have been present for a couple of weeks and are described as an aggravation. She has been performing exercises to address this issue, which were recommended last week. She also reports a longstanding lesion on her arm that occasionally balls up and detaches on its own. She denies scratching the lesion. She has a history of DM and is currently taking Jardiance and glimepiride 1 mg. 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 Her recent HbA1c was 6.4%, and her blood glucose levels typically range from 88 to 100 mg/dL, with a recent reading of 98-99 mg/dL after consuming ice cream. She has a history of CKD, with a recent improvement in creatinine levels from 1.46 to 1.24 and an increase in GFR from 34 to 42. She is also taking multiple medications, including carvedilol, lisinopril, furosemide, Plavix, atorvastatin, aspirin, amlodipine, and losartan. She reports some confusion regarding her current losartan dosage, as she has been taking half of a 100 mg tablet. She reports chronic left lower extremity edema, with the left leg being consistently larger than the right. She denies any history of knee replacement surgery. She uses a cane for ambulation and is able to cook independently. Her daughter is planning to move in with her in the next several months. She denies alcohol consumption and reports no ongoing anxiety or depression, except for stress related to her car being in the shop and trying to sell her trailer. She denies any significant changes in memory or cognitive decline. Past medical history, appointments, medications, allergies reviewed. EXAM: BP 136/75 (BP Position: Sitting) Pulse 67 Resp 16 Wt 70.3 kg (155 lb) SpO2 99% BMI 27.46 kg/m? General Appearance: Well appearing, alert, in no acute distress, well-hydrated, well nourished.. Skin: lesion on the posterior aspect of the right arm. 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 Lungs: Lungs clear to auscultation. No wheezing, rhonchi, rales.. Heart: RRR without murmur, gallop, or rubs. No ectopy. Ext: 1+, pitting pitting edema Lat (more content not included)... Normal [facility] Basic metabolic 2000 panelon 01-23-2025 Anion gap [Moles/Vol] 12 mmol/L Normal 8-15 [facility] Comment on above: Order Comment: Speci men Type: BLOOD SPECIMENOrdering Facility: [facility] Address: [address] [place], [place] [address] [place] [address] Performed By: #### 2 4321-2 ####[facility] [id number] [address] [address] [place] Calcium [Mass/Vol] 9.9 mg/dL Normal 8.5-10.2 [facility] Comment on above: Order Comment: Speci men Type: BLOOD SPECIMENOrdering Facility: [facility] Address: [address] [place], [place] [address] [place] [id number] Performed By: #### 2 4321-2 ####[facility] [id number] [address] [address] [place] Chloride [Moles/Vol] 104 mmol/L Normal 98-107 [facility] Comment on above: Order Comment: Speci men Type: BLOOD SPECIMENOrdering Facility: [facility] Address: [address] [place], [place] [address] [place] [address] Performed By: #### 2 4321-2 ####[facility] [id number] [address] [address] [place] CO2 [Moles/Vol] 23 mmol/L Normal 22-30 [facility] Comment on above: Order Comment: Speci men Type: BLOOD SPECIMENOrdering Facility: [facility] Address: [address], [place] [address] Performed By: #### 2 4321-2 ####[facility] [id number] [address] [address] [place] Creatinine [Mass/Vol] 1.24 mg/dL High 0.58-0.96 [facility] Comment on above: Order Comment: Speci men Type: BLOOD SPECIMENOrdering Facility: [facility] Address: [address], [place] [address] Performed By: #### 2 4321-2 ####[facility] [id number] [address] [address] [place] Creatinine and Glomerular filtration rate.predicted panel (S/P/Bld) 42 mL/min/1.73m??? Low >=60 [facility] Comment on above: Order Comment: Speci men Type: BLOOD SPECIMENOrdering Facility: [facility] Address: [address] [place] [address] Result Comment: Ammi mated Glomerular Filtration Rate (eGFR) is calculated using the 2020 CKD-EPI creatinine equation. This equation utilizes serum creatinine, sex, and age as parameters. The creatinine assay has traceable calibration to isotope dilution-mass spectrometry. Refer to KDIGO guidelines for clinical interpretation. In patients with unstable renal function, e.g. those with acute kidney injury, the eGFR may not accurately reflect actual GFR. Performed By: #### 2 4321-2 ####[facility] [id number] [address] [address] [place] Glucose [Mass/Vol] 140 mg/dL High 74-99 [facility] Comment on above: Order Comment: Speci men Type: BLOOD SPECIMENOrdering Facility: [facility] Address: [address] [place] [address] Result Comment: The [place] Diabetes Association (ADA) provides guidance for cutoff values for fasting glucose and random glucose. The ADA defines fasting as no caloric intake for at least 8 hours. Fasting plasma glucose results between 100 to 125 mg/dL indicate increased risk for diabetes (prediabetes). Fasting plasma glucose results greater than or equal to 126 mg/dL meet the criteria for diagnosis of diabetes. In the absence of unequivocal hyperglycemia, results should be confirmed by repeat testing. In a patient with classic symptoms of hyperglycemia or hyperglycemic crisis, random plasma glucose results greater than or equal to 200 mg/dL meet the criteria for diagnosis of diabetes. Reference: Standards of Medical Care in Diabetes 2016, [place] Diabetes Association. Diabetes Care. 2016.39(Suppl 1). Performed By: #### 2 4321-2 ####[facility] [id number] [place] [address] [place] Potassium [Moles/Vol] 4.6 mmol/L Normal 3.7-5.1 [facility] Comment on above: Order Comment: Speci men Type: BLOOD SPECIMENOrdering Facility: [facility] Address: [address] [place], [place] [address]remias., [place] [address] Performed By: #### 2 4321-2 ####[facility] [id number] [place] [id number] [place] Sodium [Moles/Vol] 139 mmol/L Normal 136-144 [facility] Comment on above: Order Comment: Speci men Type: BLOOD SPECIMENOrdering Facility: [facility] Address: [address] FALLSKalin [address] [place] [id number] Performed By: #### 2 4321-2 ####[facility] [id number] [address] [address] [place] Urea nitrogen [Mass/Vol] 30 mg/dL High 7-21 [facility] Comment on above: Order Comment: Speci men Type: BLOOD SPECIMENOrdering Facility: [facility] Address: [address] [place] [address] Performed By: #### 2 4321-2 ####[facility] [id number] [place] [id number] [place] Comprehensive metabolic 2000 panelon 01-23-2025 Albumin [Mass/Vol] 4.3 g/dL Normal 3.9-4.9 [facility] Comment on above: Order Comment: Speci men Type: BLOOD SPECIMENOrdering Facility: [facility] Address: [address] [place], [place] [address] Performed By: #### 2 4323-8, 30457-3 ####[facility] [id number] [place] [id number] [place] ALP [Catalytic activity/Vol] 83 U/L Normal 34-123 [facility] Comment on above: Order Comment: Speci men Type: BLOOD SPECIMENOrdering Facility: [facility] Address: [address] [place] [address] Performed By: #### 2 4323-8, 09708-4 ####[facility] [id number] [place] [id number] [place] ALT [Catalytic activity/Vol] 16 U/L Normal 7-38 [facility] Comment on above: Order Comment: Speci men Type: BLOOD SPECIMENOrdering Facility: [facility] Address: [address] [place], [place] [address] Performed By: #### 2 4323-8, 60704-5 ####[facility] [id number] [place] [id number] [place] Anion gap [Moles/Vol] 12 mmol/L Normal 8-15 [facility] Comment on above: Order Comment: Speci men Type: BLOOD SPECIMENOrdering Facility: [facility] Address: [address] [place], [place] [address] Performed By: #### 2 4323-8, 33953-6 ####[facility] [id number] [place] [id number] [place] AST [Catalytic activity/Vol] 24 U/L Normal 13-35 [facility] Comment on above: Order Comment: Speci men Type: BLOOD SPECIMENOrdering Facility: [facility] Address: [address] [place] [id number] Performed By: #### 2 4323-8, 86966-8 ####[facility] [id number] [address] [address] [place] Bilirubin [Mass/Vol] 0.4 mg/dL Normal 0.2-1.3 [facility] Comment on above: Order Comment: Speci men Type: BLOOD SPECIMENOrdering Facility: [facility] Address: [address] [place] [address] Performed By: #### 2 4323-8, 67445-7 ####[facility] [id number] [place] [address] [place] Calcium [Mass/Vol] 9.7 mg/dL Normal 8.5-10.2 [facility] Comment on above: Order Comment: Speci men Type: BLOOD SPECIMENOrdering Facility: [facility] Address: [address] [place] [address] Performed By: #### 2 4323-8, 04655-6 ####[facility] [id number] [place] [address] [place] Chloride [Moles/Vol] 104 mmol/L Normal 98-107 [facility] Comment on above: Order Comment: Speci men Type: BLOOD SPECIMENOrdering Facility: [facility] Address: [address] [place], [place] [address] Performed By: #### 2 4323-8, 60745-0 ####[facility] [id number] [place] [id number] [place] CO2 [Moles/Vol] 23 mmol/L Normal 22-30 [facility] Comment on above: Order Comment: Speci men Type: BLOOD SPECIMENOrdering Facility: [facility] Address: [address] [place] [address] Performed By: #### 2 4323-8, 67214-1 ####[facility] [id number] [place] [id number] [place] Creatinine [Mass/Vol] 1.24 mg/dL High 0.58-0.96 [facility] Comment on above: Order Comment: Speci men Type: BLOOD SPECIMENOrdering Facility: [facility] Address: [address] [place] [address] Performed By: #### 2 4323-8, 67079-4 ####[facility] [id number] [place] [address] [place] Creatinine and Glomerular filtration rate.predicted panel (S/P/Bld) 42 mL/min/1.73m??? Low >=60 [facility] Comment on above: Order Comment: Alfredo shay Type: BLOOD SPECIMENOrdering Facility: [facility] Address: [address] [place] [address] Result Comment: Mami mated Glomerular Filtration Rate (eGFR) is calculated using the 2020 CKD-EPI creatinine equation. This equation utilizes serum creatinine, sex, and age as parameters. The creatinine assay has traceable calibration to isotope dilution-mass spectrometry. Refer to KDIGO guidelines for clinical interpretation. In patients with unstable renal function, e.g. those with acute kidney injury, the eGFR may not accurately reflect actual GFR. Performed By: #### 2 4323-8, 76976-5 ####[facility] [id number] [place] [id number] [place] Glucose [Mass/Vol] 139 mg/dL High 74-99 [facility] Comment on above: Order Comment: Dannii men Type: BLOOD SPECIMENOrdering Facility: [facility] Address: [address] [place] [address] Result Comment: The [place] Diabetes Association (ADA) provides guidance for cutoff values for fasting glucose and random glucose. The ADA defines fasting as no caloric intake for at least 8 hours. Fasting plasma glucose results between 100 to 125 mg/dL indicate increased risk for diabetes (prediabetes). Fasting plasma glucose results greater than or equal to 126 mg/dL meet the criteria for diagnosis of diabetes. In the absence of unequivocal hyperglycemia, results should be confirmed by repeat testing. In a patient with classic symptoms of hyperglycemia or hyperglycemic crisis, random plasma glucose results greater than or equal to 200 mg/dL meet the criteria for diagnosis of diabetes. Reference: Standards of Medical Care in Diabetes 2016, [place] Diabetes Association. Diabetes Care. 2016.39(Suppl 1). Performed By: #### 2 4323-8, 46071-5 ####[facility] [id number] [facility] [place] [place] [address] [place] Potassium [Moles/Vol] 4.6 mmol/L Normal 3.7-5.1 [facility] Comment on above: Order Comment: Speci men Type: BLOOD SPECIMENOrdering Facility: [facility] Address: [address] [place] [address] Performed By: #### 2 43211-25, ####[facility] [id number] [facility] [place] [address] [place] Protein [Mass/Vol] 7.6 g/dL Normal 6.3-8.0 [facility] Comment on above: Order Comment: Dannii men Type: BLOOD SPECIMENOrdering Facility: [facility] Address: [address] [place] [address] Performed By: #### 2 4328, ####[facility] [id number] [facility] [address] [address] [place] Sodium [Moles/Vol] 139 mmol/L Normal 136-144 [facility] Comment on above: Order Comment: Speci men Type: BLOOD SPECIMENOrdering Facility: [facility] Address: [address] [place] [address] Performed By: #### 2 43238, ####[facility] [id number] [place] [id number] [place] Urea nitrogen [Mass/Vol] 32 mg/dL High 7-21 [facility] Comment on above: Order Comment: Alfredo men Type: BLOOD SPECIMENOrdering Facility: [facility] Address: [address] [place] [address] Performed By: #### 2 4323-8, 84966-8 ####[facility] [id number] [place] [id number] [place] HbA1c (Bld)on 01-23-2025 Average glucose Estimated from glycated hemoglobin (Bld) [Mass/Vol] 137 mg/dL Normal [facility] Comment on above: Order Comment: Alfredo men Type: BLOOD SPECIMENOrdering Facility: [facility] Address: [address] [place] [address] Result Comment: eAG: (Estimated average glucose) is a calculated value from HgbA1c and is community health representative of the average blood glucose level in the last 2-3 month period. Performed By: #### 5 5454-3 ####[facility] [id number] [place] [id number] [place] HbA1c (Bld) [Mass fraction] 6.4 % High 4.3-5.6 [facility] Comment on above: Order Comment: Alfredo shay Type: BLOOD SPECIMENOrdering Facility: [facility] Address: [address] [place] [address] Result Comment: [place] Diabetes Association guidelines indicate that patients with HgbA1c in the range 5.7-6.4% are at increased risk for development of diabetes, and intervention by lifestyle modification may be beneficial. HgbA1c greater or equal to 6.5% is considered diagnostic of diabetes. Performed By: #### 5 5454-3 ####[facility] [id number] [address] [address] [place] Lipid 1996 panelon 5 Cholesterol [Mass/Vol] 156 mg/dL Normal <200 [facility] Comment on above: Order Comment: Speci men Type: BLOOD SPECIMENOrdering Facility: [facility] Address: [address] [place] [address] Result Comment: <200 mg/dL, Desirable 200-239 mg/dL, Borderline high >239 mg/dL, High Performed By: #### 2 4323-8, 25188-7 ####[facility] [id number] [facility] [place] [id number] [address] [place] Cholesterol in HDL [Mass/Vol] 51 mg/dL Normal >39 [facility] Comment on above: Order Comment: Speci men Type: BLOOD SPECIMENOrdering Facility: [facility] Address: [address] [place] [address] Result Comment: 40-5 9 mg/dL, Acceptable >59 mg/dL, High: Negative risk factor for coronary heart disease <40 mg/dL, Low: Positive risk factor for coronary heart disease Performed By: #### 2 4323-8, 64541-9 ####[facility] [id number] [address], [facility] [place] Cholesterol in LDL [Mass/Vol] 89 mg/dL Normal <100 [facility] Comment on above: Order Comment: Speci men Type: BLOOD SPECIMENOrdering Facility: [facility] Address: [address] [place] [address] Result Comment: <100 mg/dL, Optimal 100-129 mg/dL, Near optimal/above optimal 130-159 mg/dL, Borderline high 160-189 mg/dL, High >189 mg/dL, Very high Secondary prevention optimal LDL Cholesterol levels are recommended to be <70 mg/dL LDL cholesterol is calculated using the Da Silva-NIH equation. Performed By: #### 2 4323-8, 33994-3 ####[facility] [id number] [facility] [address], [facility] [place] Cholesterol in LDL/Cholesterol in HDL [Mass ratio] 1.75 {ratio} Normal <2.54 [facility] Comment on above: Order Comment: Speci men Type: BLOOD SPECIMENOrdering Facility: [facility] Address: [address] [place] [address] Result Comment: Souleymane maguire: 1. National Cholesterol Education Program ATP III Guideline At-A-Glance Quick Desk Reference: National Heart, Lung, and Blood Belcher. National Institutes of Health. 2001: NIH Publication No. 01-3305. 2. An International Atherosclerosis Society position paper: global recommendations for the management of dyslipidemia: executive summary, Atherosclerosis. 2014: 232(2):410-413. Performed By: #### 2 4323-8, 53377-3 ####[facility] [id number] [place] [address] [place] Cholesterol in VLDL [Mass/Vol] 13 mg/dL Normal <30 [facility] Comment on above: Order Comment: Speci men Type: BLOOD SPECIMENOrdering Facility: [facility] Address: [address] [place] [address] Performed By: #### 2 4323-8, 77835-1 ####[facility] [id number] [place] [address] [place] Cholesterol non HDL [Mass/Vol] 105 mg/dL Normal <130 [facility] Comment on above: Order Comment: Speci men Type: BLOOD SPECIMENOrdering Facility: [facility] Address: [address] [place] [address] Result Comment: <130 mg/dL, Optimal 130-159 mg/dL, Near optimal/above optimal 160-189 mg/dL, Borderline high 190-219 mg/dL, High >219 mg/dL, Very high Secondary prevention optimal non HDL Cholesterol levels are recommended to be <100 mg/dL Performed By: #### 2 4323-8, 32046-0 ####[facility] [id number] [place] [id number] [place] Cholesterol.total/Cho lesterol in HDL [Mass ratio] 3.06 {ratio} Normal <5.10 [facility] Comment on above: Order Comment: Speci men Type: BLOOD SPECIMENOrdering Facility: [facility] Address: [address] [place] [address] Performed By: #### 2 4323-8, 95920-3 ####[facility] [id number] [address] [address] [place] FASTING TIME 15 hrs Normal [facility] Comment on above: Order Comment: Speci men Type: BLOOD SPECIMENOrdering Facility: [facility] Address: [address] [place] [address] Performed By: #### 2 4323-8, 85768-7 ####[facility] [id number] [address] [address] [place] Triglyceride [Mass/Vol] 83 mg/dL Normal <150 [facility] Comment on above: Order Comment: Speci men Type: BLOOD SPECIMENOrdering Facility: [facility] Address: [address] [place] [address] Result Comment: <150 mg/dL, Normal 150-199 mg/dL, Borderline high 200-499 mg/dL, High >499 mg/dL, Very high Performed By: #### 2 4323-8, 93632-2 ####[facility] [id number] [address] [address] [place] Cardiology Visit Reporton Cardiology Visit Report [facility]. [address] [place], [place] [address] OFFICE VISIT Date of Service: 01/01/25 MR#: [id number] Acct: [id number] Name: LUCILLE THURMAN Rep #: [id number] : 1935 Provider: Dr. Jonah Bashir MD Age/Sex: 89/F [place] [facility] [place] Status: Signed HPI HPI History of Present Illness Details: This pleasant lady with history of coronary artery disease, diastolic dysfunction, dyslipidemia and diabetes mellitus is here for follow-up visit. Since she last saw us, she has had only 1 episode of chest heaviness that lasted few minutes and resolved on its own. No orthopnea. No PND. No ankle edema. Intake Vital Signs 10/12/24 08:52 01/01/25 08:25 Height 5 ft 2 in 5 ft 2 in Weight: 154 lb 153 lb BMI 28.1 28.0 BP 143/57 H 155/62 H Blood Pressure Location Lt brachial Lt brachial Position Sitting Sitting Respiration 16 16 Pulse 67 71 Pulse Source NIBP NIBP Intake Visit Reasons: 3 M FU Insole Doubler Required: No Accompanied by: daughter Is patient in pain?: No Allergies metformin Allergy (Verified 01/01/25 09:13) Hives morphine Adverse Reaction (Verified 01/01/25 09:13) Nausea oxycodone (Oxycodone) Adverse Reaction (Verified 01/01/25 09:13) Nausea Medications ???Medication ???Instructions ???Recorded ???Confirmed ???Type multivitamin with folic acid 400 1 tab PO DAILYCM vitamin #30 tabs 02/11/15 12/15/24 Rx mcg tablet amlodipine 5 mg tablet 5 mg PO DAILY blood pressure 04/1012/15/24 History blood sugar diagnostic (True 10/04/24 12/15/24 History Metrix Glucose Test Strip) aspirin 81 mg tablet,delayed 81 mg PO BREAKFAST 30 days #30 tab s 10/08/24 12/15/24 Rx release atorvastatin 40 mg tablet 40 mg PO QHS #90 tabs 10/12/24 Rx carvedilol 3.125 mg tablet 3.125 mg PO BID 30 days #180 tabs 10/12/24 12/15/24 Rx clopidogrel 75 mg tablet 75 mg PO DAILY 30 days #90 tabs 12/15/24 Rx empagliflozin 10 mg tablet 10 mg PO DAILY 30 days #90 tabs 12/15/24 Rx (Jardiance) losartan 50 mg tablet 50 mg PO QDAY #90 tabs 10/12/24 Rx isosorbide mononitrate 30 mg 30 mg PO QDAY awaiting mail in RX, 10/23/24 12/15/24 Rx tablet,extended release 24 hr pt out of med #7 tabs furosemide 40 mg tablet 20 mg (1/2 x 40 mg) PO DAILY #15 0 11/06/24 12/15/24 Rx tabs glimepiride 1 mg tablet 1 mg PO QDAY 01/01/25 01/01/25 His tory omeprazole 20 mg capsule,delayed mg PO 01/01/25 01/01/25 History release omeprazole 40 mg capsule,delayed 40 mg PO .EOD reflux 01/01/2512/19 History release Ejection fraction %: 65 Have you fallen in the past year?: No PFSH Medical History Acute blood loss anemia Acute diastolic (congestive) heart failure Anemia Chronic kidney disease, stage 3b Closed left hip fracture Dehydration Diabetes GERD (gastroesophageal reflux disease) HTN (hypertension) Hypercholesteremia Non-smoker NSTEMI (non-ST elevated myocardial infarction) Skin cancer Type II diabetes mellitus Surgical History History of appendectomy History of cholecystectomy History of hip replacement History of shoulder replacement S/P ORIF (open reduction internal fixation) fracture Family History Sister Breast cancer Colon cancer Diabetes Uncle Heart disease Brother Kidney disease Social History household members: none current occupational status: retired Smoking Status: Never smoker alcohol intake: never substance use type: does not use ROS Const Const: Negative for fatigue, weakness, headache(s) or weight gain ENT ENT: Negative for headache(s), dizziness, Nosebleed/epistaxis or balance problems Cardio Chest Pain: No Palpitations: No Edema: None Muscle aches with walking: None Resp Respiratory: Negative for SOB with activity, SOB at rest or SOB orthopnea SOB lying down GI GI: Positive for constipation; Negative nausea, vomiting or heartburn Musc Musc: Negative for muscle aches/ myalgia, muscle weakness, joint pain or balance problems Neuro Neuro: Negative for dizziness, lightheadedness, near syncope, syncope, headache(s) or weakness Endo Endo: Negative for fatigue Cardiology Exam Const Appearance: comfortable and no acute distress Nutritional Appearance: well nourished Neck Neck: no JVD Carotids: Negative bruit Chest Auscultation: Bilateral: Clear to Auscultation Cardio Rate: regular rate Rhythm: regular rhythm Heart sounds: S1 normal and S2 normal Neuro General: patient alert, patient awake and patient oriented x3 Extremities (more content not included)... Normal [facility] .GFRon 10-30-2024 Estimated Glomerular Filtration Rate 34 ml/min/1.73sqm Normal [facility] Comment on above: Result Comment: Stages of Chronic Kidney Disease (CKD) Stage Description eGFR(ml/min/1.73 sq.m.) CKD 1 Normal kidney function or >=90 normal kindney function with possible kidney damage (ex. Proteinuria) CKD 2 Kidney damage with mild loss 60-89 of kidney function CKD 3a Mild to moderate loss of kidney 45-59 function CKD 3b Moderate to severe loss of 30-44 of kindey function CKD 4 Severe loss of kidney function 15-29 CKD 5 Kidney failure <15 Note: (go live 2024) the eGFR calculation was updated to the 2020 CKD-EPI creatinine equation without a race factor to calculate the eGFR results. Performed By: #### B MP, GFR #### [address] [address] BMPon 10-30-2024 BUN/Creatinine Ratio 28 ratio High 7-27 [facility] Comment on above: Performed By: #### B MP, GFR #### [address] [address] Calcium [Mass/Vol] 9.5 mg/dL Normal 8.4-10.2 [facility] Comment on above: Performed By: #### B MP, GFR #### [address] [address] Chloride [Moles/Vol] 102 mmol/L Normal 98-107 [facility] Comment on above: Performed By: #### B MP, GFR #### [address] [address] CO2 [Moles/Vol] 30 mmol/L Normal 23-31 [facility] Comment on above: Performed By: #### B MP, GFR #### [address] [address] Creatinine [Mass/Vol] 1.48 mg/dL High 0.55-1.02 [facility] Comment on above: Result Comment: Test ing performed on Siemens Dimension EXL analyzer using a modified kinetic Aram technique. Performed By: #### B MP, GFR #### [address] [address] Electrolyte Balance 6.0 mEq/L Normal 4.0-15.0 [facility] Comment on above: Performed By: #### B MP, GFR #### [address] [address] Glucose [Mass/Vol] 115 mg/dL High 83-110 [facility] Comment on above: Performed By: #### B MP, GFR #### [address] [address] Potassium [Moles/Vol] 4.6 mmol/L Normal 3.5-5.1 [facility] Comment on above: Performed By: #### B MP, GFR #### [address] [address] Sodium [Moles/Vol] 138 mmol/L Normal 136-145 [facility] Comment on above: Performed By: #### B MP, GFR #### [address] [address] Urea nitrogen [Mass/Vol] 41 mg/dL High 7-18 [facility] Comment on above: Performed By: #### B MP, GFR #### [address] [address] LABORATORYOrdered By: SYSTEM SYSTEM on 10-30-2024 Calcium [Mass/Vol] 9.5 mg/dL Normal 8.4 - 10. 2 mg/dL AO ADM SS Chloride [Moles/Vol] 102 mmol/L Normal 98 - 10 7 mmol/L AO ADM SS CO2 [Moles/Vol] 30 mmol/L Normal 23 - 31 mmol/L AO ADM SS Creatinine [Mass/Vol] 1.48 mg/dL High 0.55 - 1.02 mg/dL AO ADM SS Comment on above: Interpretive Data: T esting performed on Siemens Dimension EXL analyzer using a modified kinetic Aram technique. Electrolyte Balance 6.0 mEq/L Normal 4.0 - 15 .0 mEq/L AO ADM SS Estimated Glomerular Filtration Rate 34 ml/min/1.73sqm Invalid Interpretation Code AO Chemistry S Comment on above: Interpretive Data: Stages of Chronic Kidney Disease (CKD) Stage Description eGFR(ml/min/1.73 sq.m.) CKD 1 Normal kidney function or >=90 normal kindney function with possible kidney damage (ex. Proteinuria) CKD 2 Kidney damage with mild loss 60-89 of kidney function CKD 3a Mild to moderate loss of kidney 45-59 function CKD 3b Moderate to severe loss of 30-44 of kindey function CKD 4 Severe loss of kidney function 15-29 CKD 5 Kidney failure <15 Note: (go live 2024) the eGFR calculation was updated to the 2020 CKD-EPI creatinine equation without a race factor to calculate the eGFR results. Glucose [Mass/Vol] 115 mg/dL High 83 - 110 mg/dL AO ADM SS Potassium [Moles/Vol] 4.6 mmol/L Normal 3.5 - 5.1 mmol/L AO ADM SS Sodium [Moles/Vol] 138 mmol/L Normal 136 - 145 mmol/L AO ADM SS Urea nitrogen [Mass/Vol] 41 mg/dL High 7 - 18 mg/dL AO ADM SS Urea nitrogen/Creatinine [Mass ratio] 28 ratio High 7 - 27 ratio AO ADM SS [facility]UC[facility]LE [facility]UR[facility] ([id number]) 1935 F Date Time Provider Department 10/20/24 ALLIE STANTON During your visit today, we recorded the following information about you: Sheron Torres 10/20/2024 11:13 AM Signed Lucille is calling Allie Stanton MD today to request Orders (Handicap placard) Please call patient when created. Patient has been identified by name and birthdate. Duration of symptoms: N/A Person calling: self Call patient at: at home [phone] (home) [phone] (work) [phone] (cell) Was an appointment scheduled: No Closing statement: Chelle Avina MA 10/20/2024 11:18 AM Signed See request below. Call pt once complete and ask if pt wants to roller picker or have mailed to her. ZEV Pringle Mark D, MD 10/20/2024 11:43 AM Signed Rx done MD Justus Valencia Rilee, MA 10/20/2024 1:25 PM Signed Call to pt and notified her this has been completed. Pt requesting this to be mailed to her at address on file (confirmed). Notified her this would be sent out to her. Chelle Torre MA Allergies As of Date: 10/20/2024 Noted Allergy Reaction METFORMIN 03/13/2013 6 - Diarrhea MORPHINE 02/14/2016 8 - GI Upset OXYCODONE 02/14/2016 8 - GI Upset PREVACID (LANSOPRAZOLE) 07/20/2005 Date Reviewed: 10/11/2024 Reviewed by: Arnold Gottlieb LPN - Fully Assessed Reason for Visit: Orders [681] Cmt: Handicap placard Prescriptions as of 10/20/2024 - carvedilol (COREG) 3.125 mg tablet Take 3.125 mg by mouth two times a day with meals. - clopidogrel (PLAVIX) 75 mg tablet Take 75 mg by mouth once daily. - JARDIANCE 10 mg tablet Take 10 mg by mouth daily with breakfast. - furosemide (LASIX) 40 mg tablet Take 40 mg by mouth once daily. - aspirin, enteric coated (ASPIRIN, ENTERIC COATED) 81 mg EC tablet Take 81 mg by mouth once daily. - amLODIPine (NORVASC) 5 mg tablet Take 1 tablet by mouth once daily. - metoprolol succinate ER (TOPROL XL) 25 mg 24 hr tablet Take 1 tablet by mouth once daily. - atorvastatin (LIPITOR) 80 mg tablet Take 1 tablet by mouth daily at bedtime. For cholesterol. - glimepiride (AMARYL) 1 mg tablet Take 1 tablet by mouth daily with breakfast. - lisinopril (ZESTRIL) 40 mg tablet Take 1 tablet by mouth once daily. - pioglitazone (ACTOS) 15 mg tablet Take 1 tablet by mouth once daily. - povidone, PF, (IVIZIA, PF,) 0.5 % drop Use 1 Drop in eyes three times a day. - blood sugar diagnostic (BLOOD GLUCOSE TEST) test strip Test blood sugar(s) 1 times daily. Dx: E11.9. Insulin: No, Brand covered by insurance - omeprazole (PRILOSEC) 20 mg capsule take 1 capsule by mouth every other day 1/2 HOUR BEFORE BREAKFAST - MULTIVITS,TH W-CA,FE,OTH MIN (MULTIVITAMIN AND MINERAL ORAL) Take 1 tablet by mouth once daily. - lancets(FREESTYLE LANCETS) use daily - blood glucose control highANDlow(FREESTYLE CONTROL SOLN) use as directed Meds Comments as of 05/09/2019: Problem List As Of Date 10/20/2024 Noted Resolved 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 *07/21/2005 DIFFUS CYSTIC MASTOPATHY [N60.19] 07/21/2005 Chronic cough [R05.3] 08/08/2009 08/30/2015 Essential hypertension, benign [I10] 07/30/2010 Lumbar disc disease with radiculopathy [M51.16] 02/25/2011 Lateral epicondylitis [M77.10] 08/18/2011 07/01/2015 Vitamin D deficiency [E55.9] 08/20/2011 Contact eczematous dermatitis [L25.9] 03/09/2013 03/22/2019 Rash and other nonspecific skin eruption [R21] 03/09/2013 09/29/2018 Actinic keratosis [L57.0] 03/09/2013 03/22/2019 Actinic skin damage [L57.8] 03/09/2013 03/22/2019 Xerosis cutis [L85.3] 03/09/2013 03/22/2019 Carpal tunnel syndrome [G56.00] 09/29/2013 03/22/2019 Gall bladder stones [K80.20] 06/29/2014 10/19/2014 Gall bladder polyp [K82.4] 06/29/2014 10/19/2014 RUQ pain [R10.11] 06/29/2014 10/19/2014 Arteriosclerosis of both carotid arteries [I65.*10/19/2014 Forgetfulness [R68.89] 08/30/2015 Hyperlipidemia LDL goal <100 [E78.5] 02/21/2016 Osteoporosis [M81.0] 03/17/2016 Personal history of colonic polyps [Z86.0100] 10/13/2016 Trochanteric bursitis of left hip [M70.62] 12/07/2016 03/22/2019 Acute blood loss anemia [D62] 09/28/2017 09/29/2018 Closed fracture of hip (HCC) [S72.009A] 09/28/2017 03/22/2019 Acid reflux [K21.9] 09/28/2017 Stress incontinence [N39.3] 09/28/2017 DDD (degenerative disc disease), cervical [M50.*09/29/2018 Letter Text Encounter Status:Closed by CHELLE TORRE on 10/20/24 Normal [facility] Comprehensive metabolic 2000 panelon 10-16-2024 Albumin [Mass/Vol] 3.9 g/dL Normal 3.9-4.9 [facility] Comment on above: Order Comment: Speci men Type: BLOOD SPECIMENOrdering Facility: [facility] Address: [address] [place] [address] Performed By: #### 2 4323-8 ####[facility] LABCLIA [id number] [place] [address] [place] ALP [Catalytic activity/Vol] 73 U/L Normal 34-123 [facility] Comment on above: Order Comment: Speci men Type: BLOOD SPECIMENOrdering Facility: [facility] Address: [address] [place] [address] Performed By: #### 2 4323-8 ####[facility] LABCLIA [id number] [place] [address] [place] ALT [Catalytic activity/Vol] 21 U/L Normal 7-38 [facility] Comment on above: Order Comment: Speci men Type: BLOOD SPECIMENOrdering Facility: [facility] Address: [address] [place] [address] Performed By: #### 2 4323-8 ####[facility] LABCLIA [id number] [place] [address] [place] Anion gap [Moles/Vol] 11 mmol/L Normal 8-15 [facility] Comment on above: Order Comment: Speci men Type: BLOOD SPECIMENOrdering Facility: [facility] Address: [address] [place] [address] Performed By: #### 2 4323-8 ####[facility] LABCLIA [id number] [place] [address] [place] AST [Catalytic activity/Vol] 30 U/L Normal 13-35 [facility] Comment on above: Order Comment: Speci men Type: BLOOD SPECIMENOrdering Facility: [facility] Address: [address] [place] [address] Performed By: #### 2 4323-8 ####[facility] LABCLIA [id number] [place] [address] [place] Bilirubin [Mass/Vol] 0.5 mg/dL Normal 0.2-1.3 [facility] Comment on above: Order Comment: Speci men Type: BLOOD SPECIMENOrdering Facility: [facility] Address: [address] [place] [address] Performed By: #### 2 4323-8 ####[facility] LABCLIA [id number] [place] [address] [place] Calcium [Mass/Vol] 9.8 mg/dL Normal 8.5-10.2 [facility] Comment on above: Order Comment: Speci men Type: BLOOD SPECIMENOrdering Facility: [facility] Address: [address] [place] [address] Performed By: #### 2 4323-8 ####[facility] LABCLIA [id number] [place] [id number] [place] Chloride [Moles/Vol] 105 mmol/L Normal 98-107 [facility] Comment on above: Order Comment: Speci men Type: BLOOD SPECIMENOrdering Facility: [facility] Address: [address] [place] [address] Performed By: #### 2 4323-8 ####[facility] LABCLIA [id number] [place] [address] [place] CO2 [Moles/Vol] 24 mmol/L Normal 22-30 [facility] Comment on above: Order Comment: Speci men Type: BLOOD SPECIMENOrdering Facility: [facility] Address: [address] [place] [address] Performed By: #### 2 4323-8 ####[facility] LABIA [id number] [address] [place] Creatinine [Mass/Vol] 1.46 mg/dL High 0.58-0.96 [facility] Comment on above: Order Comment: Speci men Type: BLOOD SPECIMENOrdering Facility: [facility] Address: [address] [place] [address] Performed By: #### 2 4323-8 ####[facility] LABIA [id number] [address] [place] Creatinine and Glomerular filtration rate.predicted panel (S/P/Bld) 34 mL/min/1.73m??? Low >=60 [facility] Comment on above: Order Comment: Speci men Type: BLOOD SPECIMENOrdering Facility: [facility] Address: [address] [place] [address] Result Comment: Mami mated Glomerular Filtration Rate (eGFR) is calculated using the 2020 CKD-EPI creatinine equation. This equation utilizes serum creatinine, sex, and age as parameters. The creatinine assay has traceable calibration to isotope dilution-mass spectrometry. Refer to KDIGO guidelines for clinical interpretation. In patients with unstable renal function, e.g. those with acute kidney injury, the eGFR may not accurately reflect actual GFR. Performed By: #### 2 4323-8 ####[facility] LABCLIA [id number] [place] [address] [place] Glucose [Mass/Vol] 77 mg/dL Normal 74-99 [facility] Comment on above: Order Comment: Speci men Type: BLOOD SPECIMENOrdering Facility: [facility] Address: [address] [place] [address] Result Comment: The [place] [employer] (ADA) provides guidance for cutoff values for fasting glucose and random glucose. The ADA defines fasting as no caloric intake for at least 8 hours. Fasting plasma glucose results between 100 to 125 mg/dL indicate increased risk for diabetes (prediabetes). Fasting plasma glucose results greater than or equal to 126 mg/dL meet the criteria for diagnosis of diabetes. In the absence of unequivocal hyperglycemia, results should be confirmed by repeat testing. In a patient with classic symptoms of hyperglycemia or hyperglycemic crisis, random plasma glucose results greater than or equal to 200 mg/dL meet the criteria for diagnosis of diabetes. Reference: Standards of Medical Care in Diabetes 2016, [place] [employer]. Diabetes Care. 2016.39(Suppl 1). Performed By: #### 2 4323-8 ####[facility] LABCLIA [id number] [place] [address] [place] Potassium [Moles/Vol] 4.8 mmol/L Normal 3.7-5.1 [facility] Comment on above: Order Comment: Speci men Type: BLOOD SPECIMENOrdering Facility: [facility] Address: [address] [place], [place] [id number] Performed By: #### 2 4323-8 ####[facility] LABCLIA [id number] [place] [address] [place] Protein [Mass/Vol] 7.3 g/dL Normal 6.3-8.0 [facility] Comment on above: Order Comment: Speci men Type: BLOOD SPECIMENOrdering Facility: [facility] Address: [address] [place], [place] [address] Performed By: #### 2 4323-8 ####[facility] LABCLIA [id number] [place] [address] [place] Sodium [Moles/Vol] 140 mmol/L Normal 136-144 [facility] Comment on above: Order Comment: Speci men Type: BLOOD SPECIMENOrdering Facility: [facility] Address: [address] [place] [id number] Performed By: #### 2 4323-8 ####[facility] LABCLIA [id number] [place] [id number] [place] Urea nitrogen [Mass/Vol] 31 mg/dL High 7-21 [facility] Comment on above: Order Comment: Speci men Type: BLOOD SPECIMENOrdering Facility: [facility] Address: [address] [place] [id number] Performed By: #### 2 4323-8 ####[facility] LABCLIA [id number] [address] [address] [place] Cardiology Visit Reporton Cardiology Visit Report [facility] [address] [place] [address] OFFICE VISIT Date of Service: 10/12/24 MR#: [id number] Acct: [id number] Name: LUCILLE THURMAN Rep #: [id number] : 1935 Provider: Dr. Jonah Bashir MD Age/Sex: 89/F [place] [facility] [place] Status: Signed HPI HPI History of Present Illness Details: This lady is here as a hospital follow-up. She was admitted to the hospital with a diagnosis of NSTEMI. Echocardiogram revealed normal left ventricular systolic function. Coronary angiography showed moderate disease. Medical therapy was advised. Since her discharge from the hospital, patient has had 1 episode of anterior chest discomfort that lasted a couple of minutes only. Denies any shortness of breath. No palpitations. No orthopnea or PND. Occasional ankle edema. She does complain of chronic dry cough. Intake Vital Signs 10/05/24 11:57 10/12/24 08:52 Height 5 ft 2 in 5 ft 2 in Weight: 154 lb BMI 28.1 BP 143/57 H Blood Pressure Location Lt brachial Position Sitting Respiration 16 Pulse 67 Pulse Source NIBP Intake Visit Reasons: S/P [facility] 10/08 Insole Doubler Required: No Accompanied by: Daughter Is patient in pain?: No Allergies metformin Allergy (Verified 10/12/24 13:06) Hives morphine Adverse Reaction (Verified 10/12/24 13:06) Nausea oxycodone (Oxycodone) Adverse Reaction (Verified 10/12/24 13:06) Nausea Medications ???Medication ???Instructions ???Recorded ???Confirmed ???Type atorvastatin 80 mg tablet 80 mg PO QHS cholesterol 08/25/13 10/12/24 History glimepiride 2 mg tablet 4 mg PO DAILY diabetes 08/25/13 10/12/24 History lisinopril 40 mg tablet 40 mg PO DAILY blood pressure 08/25/13 10/12/24 History multivitamin with folic acid 400 1 tab PO DAILYCM vitamin #30 tabs 02/11/15 10/12/24 Rx mcg tablet amlodipine 5 mg tablet 5 mg PO DAILY blood pressure 04/10/19 10/12/24 History Poglitasone 15 mg PO DAILY diabetes 05/23/19 10/12/24 History omeprazole 40 mg capsule,delayed 40 mg PO DAILY reflux 05/23/19 10/12/24 History release blood sugar diagnostic (True 10/04/24 10/12/24 History Metrix Glucose Test Strip) aspirin 81 mg tablet,delayed 81 mg PO BREAKFAST 30 days #30 tabs 10/08/24 10/12/24 Rx release carvedilol 3.125 mg tablet 3.125 mg PO BID 30 days #60 tabs 10/08/24 10/12/24 Rx clopidogrel 75 mg tablet 75 mg PO DAILY 30 days #30 tabs 10/08/24 10/12/24 Rx empagliflozin 10 mg tablet 10 mg PO DAILY 30 days #30 tabs 10/08/24 10/12/24 Rx (Jardiance) furosemide 40 mg tablet 40 mg PO DAILY 30 days #30 tabs 10/08/24 10/12/24 Rx Ejection fraction %: 65 Have you fallen in the past year?: No PFSH Medical History Acute blood loss anemia Anemia Closed left hip fracture Dehydration Diabetes GERD (gastroesophageal reflux disease) HTN (hypertension) Hypercholesteremia Non-smoker Skin cancer Type II diabetes mellitus Surgical History History of appendectomy History of cholecystectomy History of hip replacement History of shoulder replacement S/P ORIF (open reduction internal fixation) fracture Family History Sister Breast cancer Colon cancer Diabetes Uncle Heart disease Brother Kidney disease Social History household members: none current occupational status: retired Smoking Status: Never smoker alcohol intake: never substance use type: does not use ROS Const Const: Negative for fatigue, weakness, headache(s) or weight gain ENT ENT: Negative for headache(s), dizziness, Nosebleed/epistaxis or balance problems Cardio Chest Pain: Yes (occasional heaviness; resolves quickly) Palpitations: No Edema: None Muscle aches with walking: None Resp Respiratory: Negative for SOB with activity, SOB at rest or SOB orthopnea SOB lying down GI GI: Negative nausea, vomiting or heartburn Musc Musc: Negative for muscle aches/ myalgia, muscle weakness, joint pain or balance problems Neuro Neuro: Negative for dizziness, lightheadedness, near syncope, syncope, headache(s) or weakness Endo Endo: Negative for fatigue Cardiology Exam Const Appearance: comfortable and no acute distress Nutritional Appearance: well nourished Neck Neck: no JVD Carotids: Negative bruit Chest Auscultation: Bilateral: Clear to Auscultation Cardio Rate: regular rate Rhythm: regular rhythm Heart sounds: S1 normal and S2 normal Neuro General: patient alert, patient awake and patient oriented x3 Extremities Lower Extremity Edema: None: Bilateral Supplemental Info Supplemental Information Echocardiogram Complete 10/05 (more content not included)... Normal [facility] CNOVon 10-11-2024 CNOV Office Visit (FAMPWS ) LUCILLE THURMAN ([id number]) 1935 F Do not c* Date Time Provider Department 10/11/24 2:00 PM TREVA SANDOVAL During your visit today, we recorded the following information about you: Pulse Respiration Blood pressure Weight 71/minute 16/minute 140/68 70 kg Treva Sandoval APRN.CNP 10/11/2024 5:34 PM Signed This is a 89 year old female who presents today with: Patient presents with: Follow Up: 4 day Hospital follow up HISTORY OF PRESENT ILLNESS: Lucille Thurman is a 89 year old female. Patient presents with: Follow Up: 4 day Hospital follow up Daughters present at this appointment. HOSPITAL/ER FOLLOW UP: Reason for visit: [facility] Which facility: [facility] Date of visit: 10/04/2024-10/08/2024 Diagnosis: Acute hypoxic respiratory failure due to acute on chronic HFpEF. 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 Bun 29, creatinine 1.21, glucose 138, troponin 15, BNP elevated at 496. Chest x-ray showing possible CHF concerns for pulmonary edema. Treatment given: BiPAP, Lasix 40 mg IV, Ativan 0.5 mg, hydralazine. Cardiology consulted, initial troponin was normal however serial troponins were positive concerns for NSTEMI. Echocardiogram completed showed normal left ventricular systolic function. Stage I diastolic dysfunction was noted. Heart cath completed showing Diagnostic cath was done which showed ejection fraction 65%, left main tubular 50%, ostial 50% tubular calcified mid LAD, tubular calcified 50% and mid RCA. Consult nephrology, concerns for NEELIMA from cardiorenal syndrome or concern that increased creatinine could be from recent aggressive diuresis. Will complete urinalysis and renal ultrasound. Recommended that patient hold diuretics for the time being. IV heparin given, echo showed ejection fraction 65%, stage I diastolic function, mild MR mild TR R VSP 41 mg of mercury. Mild concentric LVH. Elevated D-dimer. Started on baby aspirin, carvedilol, Plavix, and Jardiance Lasix on hold due to diuretic use renal ultrasound showed no suspicious hemodynamic findings. Continue to hold lisinopril and furosemide. Advised to have repeat BMP in 2 to 3 days with PCP team determine dose of Lasix and lisinopril accordingly. Current symptoms: Has been feeling well since discharge from hospital . No SOB or chest pain. Instructed to hold lisinopril until 10/14/2024. Blood pressure elevated in the office today. Refers that lower leg swelling is much improved. Will be seeing cardiology tomorrow. Has been holding glimepiride. Last labs were completed in the hospital on 10/08/2024, at that time creatinine was 1.34 and GFR was 48, repeat labs completed on 10/10/2024. Creatinine 1.31 and GFR 39. Medications added on at discharge furosemide 40 mg daily, currently holding due to kidney function. Plavix 75 mg daily, aspirin 81 mg daily, carvedilol 3.125 mg twice daily, Jardiance 10 mg. Instructed to continue with amlodipine 5 mg, Lipitor 80 mg daily, omeprazole 40 mg, Actos 15 mg daily. PAST MEDICAL HISTORY: PAST MEDICAL HISTORY Diagnosis Date Acquired absence of other specified parts of digestive tract Age-related osteoporosis without current pathological fracture Arteriosclerosis of both carotid arteries 10/19/2014 Cataract extraction status, left eye Cataract extraction status, right eye DDD (degenerative disc disease), cervical 09/29/2018 Diverticulosis of colon (without mention of hemorrhage) Diverticulosis Do not resuscitate Essential hypertension, benign 07/30/2010 Gastro-esophageal reflux disease without esophagitis History of fall Hyperlipidemia Inflammatory disease of breast snf (current) use 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 snf (current) use of oral hypoglycemic drugs Lumbar disc disease with radiculopathy 02/25/2011 Osteoporosis 03/17/2016 Personal history of (healed) traumatic fracture Presence of left artificial shoulder joint Right carotid bruit 10/16/2014 Type II or unspecified type diabetes mellitus without mention of complication, not stated as uncontrolled Unspecified hearing loss, bilateral Vitamin D deficiency 08/20/2011 PAST SURGICAL HISTORY Procedure Laterality Date APPENDECTOMY BX BREAST NEEDLE CORE W/O IMAGING GUIDANCE SPX cant recall which breast COLONOSCOPY FLX DX W/COLLJ SPEC WHEN PFRMD 07/25/2001 Colonoscopy CORRJ HLX VLGS BNCTY SESMDC DSTL METAR OSTEOT cant remember which foot ESOPHAGOGASTRODUODENOSC OPY TRANSORAL DIAGNOSTIC 2014 Erosive gastritis, duodenal bulb ulcer LAPS SURG CHOLECYSTECTOMY W/CHOLANGIOGRAPHY 08-02-14 MRCP 2015 subcentimeter cyst MYRINGOTOMY ASPIRAND/EUSTACHIAN TUBE NFLTJ ANES Myringotomy/tubes, right NEUROPLASTY AND/TRANSPOS MEDIAN NRV CARPAL TUNNE 10-20-13 RIGHT PAST SURGICAL HISTORY OF skin CA face PAST (more content not included)... Normal [facility] CBC W Auto Differential pane l (Bld)on 10-10-2024 Basophils (Bld) [#/Vol] 0.06 10*3/uL Normal <0.11 [facility] Comment on above: Order Comment: Speci men Type: BLOOD SPECIMENOrdering Facility: [facility] Address: [address] [place] [address] Performed By: #### 5 7021-8 ####[facility] [id number] [place] [address] [place] Basophils/100 WBC (Bld) 0.8 % Normal [facility] Comment on above: Order Comment: Speci men Type: BLOOD SPECIMENOrdering Facility: [facility] Address: [address] [place] [address] Performed By: #### 5 7021-8 ####[facility] [id number] [place] [address] [place] Differential cell count method Nom (Bld) Auto Normal [facility] Comment on above: Order Comment: Speci men Type: BLOOD SPECIMENOrdering Facility: [facility] Address: [address] [place] [address] Performed By: #### 5 7021-8 ####[facility] LABCL[facility] [id number] [place] [address] [place] Eosinophils (Bld) [#/Vol] 0.19 10*3/uL Normal <0.46 [facility] Comment on above: Order Comment: Speci men Type: BLOOD SPECIMENOrdering Facility: [facility] Address: [address] [place] [address] Performed By: #### 5 7021-8 ####[facility]CL[facility] [id number] [place] [address] [place] Eosinophils/100 WBC (Bld) 2.6 % Normal [facility] Comment on above: Order Comment: Speci men Type: BLOOD SPECIMENOrdering Facility: [facility] Address: [address] [place] [address] Performed By: #### 5 7021-8 ####[facility] [id number] [place] [address] [place] Erythrocyte distribution width (RBC) [Ratio] 13.7 % Normal 11.5-15.0 [facility] Comment on above: Order Comment: Speci men Type: BLOOD SPECIMENOrdering Facility: [facility] Address: [address] [place] [address] Performed By: #### 5 7021-8 ####[facility] [id number] [place] [address] [place] Hematocrit (Bld) [Volume fraction] 33.1 % Low 36.0-46.0 [facility] Comment on above: Order Comment: Speci men Type: BLOOD SPECIMENOrdering Facility: [facility] Address: [address] [place] [address] Performed By: #### 5 7021-8 ####[facility] [id number] [place] [address] [place] Hemoglobin (Bld) [Mass/Vol] 10.6 g/dL Low 11.5-15.5 [facility] Comment on above: Order Comment: Speci men Type: BLOOD SPECIMENOrdering Facility: [facility] Address: [address] [place] [address] Performed By: #### 5 7021-8 ####[facility] [id number] [place] [address] [place] Immature granulocytes (Bld) [#/Vol] 10*3/uL Normal <0.10 [facility] Comment on above: Order Comment: Speci men Type: BLOOD SPECIMENOrdering Facility: [facility] Address: [address] [place] [address] Performed By: #### 5 7021-8 ####[facility] [id number] [place] [address] [place] Immature granulocytes/100 WBC (Bld) 0.3 % Normal [facility] Comment on above: Order Comment: Speci men Type: BLOOD SPECIMENOrdering Facility: [facility] Address: [address] [place] [address] Performed By: #### 5 7021-8 ####[facility] [id number] [place] [address] [place] Lymphocytes (Bld) [#/Vol] 1.06 10*3/uL Normal 1.00-4.00 [facility] Comment on above: Order Comment: Speci men Type: BLOOD SPECIMENOrdering Facility: [facility] Address: [address] [place] [address] Performed By: #### 5 7021-8 ####[facility] [id number] [place] [address] [place] Lymphocytes/100 WBC (Bld) 14.5 % Normal [facility] Comment on above: Order Comment: Speci men Type: BLOOD SPECIMENOrdering Facility: [facility] Address: [address] [place] [address] Performed By: #### 5 7021-8 ####[facility]CL[facility] [id number] [place] [address] [place] MCH (RBC) [Entitic mass] 30.4 pg Normal 26.0-34.0 [facility] Comment on above: Order Comment: Speci men Type: BLOOD SPECIMENOrdering Facility: [facility] Address: [address] [place] [address] Performed By: #### 5 7021-8 ####[facility] [id number] [place] [address] [place] MCHC (RBC) [Mass/Vol] 32.0 g/dL Normal 30.5-36.0 [facility] Comment on above: Order Comment: Speci men Type: BLOOD SPECIMENOrdering Facility: [facility] Address: [address] [place] [address] Performed By: #### 5 7021-8 ####[facility] [id number] [place] [address] [place] MCV (RBC) [Entitic vol] 94.8 fL Normal 80.0-100.0 [facility] Comment on above: Order Comment: Speci men Type: BLOOD SPECIMENOrdering Facility: [facility] Address: [address] [place] [address] Performed By: #### 5 7021-8 ####[facility] [id number] [place] [address] [place] Monocytes (Bld) [#/Vol] 0.66 10*3/uL Normal <0.87 [facility] Comment on above: Order Comment: Speci men Type: BLOOD SPECIMENOrdering Facility: [facility] Address: [address] [place] [address] Performed By: #### 5 7021-8 ####[facility] [id number] [place] [address] [place] Monocytes/100 WBC (Bld) 9.0 % Normal [facility] Comment on above: Order Comment: Speci men Type: BLOOD SPECIMENOrdering Facility: [facility] Address: [address] [place] [address] Performed By: #### 5 7021-8 ####[facility] LABCL[facility] [id number] [place] [address] [place] Neutrophils (Bld) [#/Vol] 5.32 10*3/uL Normal 1.45-7.50 [facility] Comment on above: Order Comment: Speci men Type: BLOOD SPECIMENOrdering Facility: [facility] Address: [address] [place] [address] Performed By: #### 5 7021-8 ####[facility]CL[facility] [id number] [place] [address] [place] Neutrophils/100 WBC (Bld) 72.8 % Normal [facility] Comment on above: Order Comment: Speci men Type: BLOOD SPECIMENOrdering Facility: [facility] Address: [address] [place] [address] Performed By: #### 5 7021-8 ####[facility]CL[facility] [id number] [place] [address] [place] Nucleated RBC (Bld) [#/Vol] 10*3/uL Normal <0.01 [facility] Comment on above: Order Comment: Speci men Type: BLOOD SPECIMENOrdering Facility: [facility] Address: [address] [place] [address] Performed By: #### 5 7021-8 ####[facility]CL[facility] [id number] [place] [address] [place] Nucleated RBC/100 WBC (Bld) [Ratio] 0.0 /100 WBC Normal [facility] Comment on above: Order Comment: Speci men Type: BLOOD SPECIMENOrdering Facility: [facility] Address: [address] [place] [address] Performed By: #### 5 7021-8 ####[facility] [id number] [place] [address] [place] Platelet mean volume (Bld) [Entitic vol] 9.7 fL Normal 9.0-12.7 [facility] Comment on above: Order Comment: Speci men Type: BLOOD SPECIMENOrdering Facility: [facility] Address: [address] [place] [address] Performed By: #### 5 7021-8 ####[facility] [id number] [place] [address] [place] Platelets (Bld) [#/Vol] 223 10*3/uL Normal 150-400 [facility] Comment on above: Order Comment: Speci men Type: BLOOD SPECIMENOrdering Facility: [facility] Address: [address] [place] [address] Performed By: #### 5 7021-8 ####[facility] [id number] [place] [address] [place] RBC (Bld) [#/Vol] 3.49 10*6/uL Low 3.90-5.20 [facility] Comment on above: Order Comment: Speci men Type: BLOOD SPECIMENOrdering Facility: [facility] Address: [address] [place] [address] Performed By: #### 5 7021-8 ####[facility] [id number] [place] [address] [place] WBC (Bld) [#/Vol] 7.31 10*3/uL Normal 3.70-11.00 [facility] Comment on above: Order Comment: Speci men Type: BLOOD SPECIMENOrdering Facility: [facility] Address: [address] [place] [address] Performed By: #### 5 7021-8 ####[facility] [id number] [place] [address] [place] Comprehensive metabolic 2000 panelon 10-10-2024 Albumin [Mass/Vol] 3.9 g/dL Normal 3.9-4.9 [facility] Comment on above: Order Comment: Speci men Type: BLOOD SPECIMENOrdering Facility: [facility] Address: [address] [place] [address] Performed By: #### 2 4323-8 ####[facility] [id number] [address] [address] [id number] [address] [place] ALP [Catalytic activity/Vol] 82 U/L Normal 34-123 [facility] Comment on above: Order Comment: Speci men Type: BLOOD SPECIMENOrdering Facility: [facility] Address: [address] [place] [address] Performed By: #### 2 4323-8 ####[facility] [id number] [place] [address] [place] ALT [Catalytic activity/Vol] 32 U/L Normal 7-38 [facility] Comment on above: Order Comment: Speci men Type: BLOOD SPECIMENOrdering Facility: [facility] Address: [address] [place] [address] Performed By: #### 2 4323-8 ####[facility] [id number] [place] [address] [place] Anion gap [Moles/Vol] 9 mmol/L Normal 8-15 [facility] Comment on above: Order Comment: Speci men Type: BLOOD SPECIMENOrdering Facility: [facility] Address: [address] [place] [address] Performed By: #### 2 4323-8 ####[facility] [id number] [place] [address] [place] AST [Catalytic activity/Vol] 37 U/L High 13-35 [facility] Comment on above: Order Comment: Speci men Type: BLOOD SPECIMENOrdering Facility: [facility] Address: [address] [place] [address] Performed By: #### 2 4323-8 ####[facility]CL[facility] [id number] [place] [address] [place] Bilirubin [Mass/Vol] 0.7 mg/dL Normal 0.2-1.3 [facility] Comment on above: Order Comment: Speci men Type: BLOOD SPECIMENOrdering Facility: [facility] Address: [address] [place] [address] Performed By: #### 2 4323-8 ####[facility]CL[facility] [id number] [facility] [place] [address] [place] Calcium [Mass/Vol] 9.4 mg/dL Normal 8.5-10.2 [facility] Comment on above: Order Comment: Speci men Type: BLOOD SPECIMENOrdering Facility: [facility] Address: [address] [place] [address] Performed By: #### 2 4323-8 ####[facility] [id number] [place] [address] [place] Chloride [Moles/Vol] 107 mmol/L Normal 98-107 [facility] Comment on above: Order Comment: Speci men Type: BLOOD SPECIMENOrdering Facility: [facility] Address: [address] [place] [address] Performed By: #### 2 4323-8 ####[facility]CL[facility] [id number] [place] [address] [place] CO2 [Moles/Vol] 23 mmol/L Normal 22-30 [facility] Comment on above: Order Comment: Speci men Type: BLOOD SPECIMENOrdering Facility: [facility] Address: [address] [place] [address] Performed By: #### 2 4323-8 ####[facility] [id number] [place] [address] [place] Creatinine [Mass/Vol] 1.31 mg/dL High 0.58-0.96 [facility] Comment on above: Order Comment: Speci men Type: BLOOD SPECIMENOrdering Facility: [facility] Address: [address] [place] [address] Performed By: #### 2 4323-8 ####[facility] [id number] [place] [address] [place] Creatinine and Glomerular filtration rate.predicted panel (S/P/Bld) 39 mL/min/1.73m??? Low >=60 [facility] Comment on above: Order Comment: Alfredo shay Type: BLOOD SPECIMENOrdering Facility: [facility] Address: [address] [place] [address] Result Comment: Mami mated Glomerular Filtration Rate (eGFR) is calculated using the 2020 CKD-EPI creatinine equation. This equation utilizes serum creatinine, sex, and age as parameters. The creatinine assay has traceable calibration to isotope dilution-mass spectrometry. Refer to KDIGO guidelines for clinical interpretation. In patients with unstable renal function, e.g. those with acute kidney injury, the eGFR may not accurately reflect actual GFR. Performed By: #### 2 4323-8 ####[facility] [id number] [place] [address] [place] Glucose [Mass/Vol] 151 mg/dL High 74-99 [facility] Comment on above: Order Comment: Alfredo shay Type: BLOOD SPECIMENOrdering Facility: [facility] Address: [address] [place] [address] Result Comment: The [place] [employer] (ADA) provides guidance for cutoff values for fasting glucose and random glucose. The ADA defines fasting as no caloric intake for at least 8 hours. Fasting plasma glucose results between 100 to 125 mg/dL indicate increased risk for diabetes (prediabetes). Fasting plasma glucose results greater than or equal to 126 mg/dL meet the criteria for diagnosis of diabetes. In the absence of unequivocal hyperglycemia, results should be confirmed by repeat testing. In a patient with classic symptoms of hyperglycemia or hyperglycemic crisis, random plasma glucose results greater than or equal to 200 mg/dL meet the criteria for diagnosis of diabetes. Reference: Standards of Medical Care in Diabetes 2016, [place] [employer]. Diabetes Care. 2016.39(Suppl 1). Performed By: #### 2 4323-8 ####[facility] [id number] [place] [address] [place] Potassium [Moles/Vol] 4.5 mmol/L Normal 3.7-5.1 [facility] Comment on above: Order Comment: Alfredo shay Type: BLOOD SPECIMENOrdering Facility: [facility] Address: [address] [place], [place] [id number] Performed By: #### 2 4323-8 ####[facility] [id number] [place] [id number] [place] Protein [Mass/Vol] 7.3 g/dL Normal 6.3-8.0 [facility] Comment on above: Order Comment: Speci men Type: BLOOD SPECIMENOrdering Facility: [facility] Address: [address] [place] [address] Performed By: #### 2 4323-8 ####[facility] [id number] [place] [address] [place] Sodium [Moles/Vol] 139 mmol/L Normal 136-144 [facility] Comment on above: Order Comment: Speci men Type: BLOOD SPECIMENOrdering Facility: [facility] Address: [address] [place] [address] Performed By: #### 2 4323-8 ####[facility] [id number] [place] [address] [place] Urea nitrogen [Mass/Vol] 28 mg/dL High - [facility] Comment on above: Order Comment: Speci men Type: BLOOD SPECIMENOrdering Facility: [facility] Address: [address] [place] [address] Performed By: #### 2 4323-8 ####[facility] [id number] [place] [id number] [place] Basic Metabolic Profile (BMP )on 10-09-2024 BUN Normal - [facility] Comment on above: Result Comment: Canc elled via OM: Order cancelled - Patient discharged Performed By: #### L 100.0100, L500.2500 #### [facility] [address] [place], [address] BUN/CRE Normal -20 [facility] Comment on above: Result Comment: Canc elled via OM: Order cancelled - Patient discharged Performed By: #### L 100.0100, L500.2500 #### [facility] [address] [place], [address] CA,Total Normal 8.5-10.1 [facility] Comment on above: Result Comment: Canc elled via OM: Order cancelled - Patient discharged Performed By: #### L 100.0100, L500.2500 #### [facility] [address] [place], [address] CL Normal 98-107 [facility] Comment on above: Result Comment: Canc elled via OM: Order cancelled - Patient discharged Performed By: #### L 100.0100, L500.2500 #### [facility] [address] [place], [address] CO2 Normal 21.0-32.0 [facility] Comment on above: Result Comment: Canc elled via OM: Order cancelled - Patient discharged Performed By: #### L 100.0100, L500.2500 #### [facility] [address] [place], [address] CREAT,SERUM Normal 0.55-1.02 [facility] Comment on above: Result Comment: Canc elled via OM: Order cancelled - Patient discharged Performed By: #### L 100.0100, L500.2500 #### [facility] [address] [place], [address] EST GFR Normal >60 [facility] Comment on above: Result Comment: Canc elled via OM: Order cancelled - Patient discharged Performed By: #### L 100.0100, L500.2500 #### [facility] [address] [place], [address] EST GFR - AA Normal >60 [facility] Comment on above: Result Comment: Canc elled via OM: Order cancelled - Patient discharged Performed By: #### L 100.0100, L500.2500 #### [facility] [address] [place], [address] GAP Normal 5-15 [facility] Comment on above: Result Comment: Canc elled via OM: Order cancelled - Patient discharged Performed By: #### L 100.0100, L500.2500 #### [facility] [address] [place], [address] GLU Normal 74-106 [facility] Comment on above: Result Comment: Canc elled via OM: Order cancelled - Patient discharged Performed By: #### L 100.0100, L500.2500 #### [facility] [address] [place], [address] Potassium Normal 3.5-5.1 [facility] Comment on above: Result Comment: Canc elled via OM: Order cancelled - Patient discharged Performed By: #### L 100.0100, L500.2500 #### [facility] [address] [place], [address] Basic Metabolic Profile (BMP) Normal 136-145 [facility] Comment on above: Result Comment: Canc elled via OM: Order cancelled - Patient discharged Performed By: #### L 100.0100, L500.2500 #### [facility] [facility] [address] [place], [address] CBC W/Diff, Automatedon 01-2 0-2024 Absolute Neut Normal 2.0-7.7 [facility] Comment on above: Result Comment: Canc elled via OM: Order cancelled - Patient discharged Performed By: #### L 100.0100, L500.2500 #### [facility] [address] [place], [address] HCT Normal 37-47 [facility] Comment on above: Result Comment: Canc elled via OM: Order cancelled - Patient discharged Performed By: #### L 100.0100, L500.2500 #### [facility] [address] [place], [address] HGB Normal 12.0-15.0 [facility] Comment on above: Result Comment: Canc elled via OM: Order cancelled - Patient discharged Performed By: #### L 100.0100, L500.2500 #### [facility] [address] [place], [address] MCH Normal 27.0-32.0 [facility] Comment on above: Result Comment: Canc elled via OM: Order cancelled - Patient discharged Performed By: #### L 100.0100, L500.2500 #### [facility] [address] [place], [address] MCHC Normal 32-36 [facility] Comment on above: Result Comment: Canc elled via OM: Order cancelled - Patient discharged Performed By: #### L 100.0100, L500.2500 #### [facility] [address] [place], [address] MCV Normal 81-99 [facility] Comment on above: Result Comment: Canc elled via OM: Order cancelled - Patient discharged Performed By: #### L 100.0100, L500.2500 #### [facility] [address] [place], [address] NEUT% Normal 47-70 [facility] Comment on above: Result Comment: Canc elled via OM: Order cancelled - Patient discharged Performed By: #### L 100.0100, L500.2500 #### [facility] [address] [place], [address] PLT Normal 150-450 [facility] Comment on above: Result Comment: Canc elled via OM: Order cancelled - Patient discharged Performed By: #### L 100.0100, L500.2500 #### [facility] [address] [place], [address] RBC Normal 4.2-5.4 [facility] Comment on above: Result Comment: Canc elled via OM: Order cancelled - Patient discharged Performed By: #### L 100.0100, L500.2500 #### [facility] [address] [place], [address] RDW CV Normal 11.6-14.6 [facility] Comment on above: Result Comment: Canc elled via OM: Order cancelled - Patient discharged Performed By: #### L 100.0100, L500.2500 #### [facility] [address] [place], [address] RDW SD Normal 35.1-43.9 [facility] Comment on above: Result Comment: Canc elled via OM: Order cancelled - Patient discharged Performed By: #### L 100.0100, L500.2500 #### [facility] [address] [place], [address] WBC Normal 4.4-11.0 [facility] Comment on above: Result Comment: Canc elled via OM: Order cancelled - Patient discharged Performed By: #### L 100.0100, L500.2500 #### [facility] [address] [place], [address] CNPNon 10-09-2024 [facility] Telephone (CEZAR) LUCILLE THURMAN ([id number]) 1935 F Do not c* Date Time Provider Department 10/09/24 TREVA SANDOVAL [facility] During your visit today, we recorded the following information about you: Arnold Gottlieb LPN 10/09/2024 9:19 AM Addendum Talked to Pt son in law. Pt needs labs today and appointment on . Pt also needs a Rx of amlodipine 5 mg sent to [facility] BRANDY Perry Ashley, APRN.BERNARDO 10/09/2024 9:40 AM Signed Noted, CMP and CBC placed, RX for amlodipine sent to pharmacy. Thank you Treva Sandoval APRN.Treva Araujo APRN.BERNARDO 10/09/2024 9:40 AM Signed Addended by: TREVA SANDOVAL on: 10/09/2024 09:40 AM Modules accepted: Orders Allergies As of Date: 10/09/2024 Noted Allergy Reaction METFORMIN 03/13/2013 6 - Diarrhea MORPHINE 02/14/2016 8 - GI Upset OXYCODONE 02/14/2016 8 - GI Upset PREVACID (LANSOPRAZOLE) 07/20/2005 Date Reviewed: 09/14/2024 Reviewed by: Lisa Sterling LPN - Fully Assessed Primary Visit Diagnosis:Essential hypertension, benign [I10] Other Visit Diagnosis:Congestive heart failure, unspecified HF chronicity, unspecified heart failure type (HCC) [I50.9] Order(s):amLODIPine (NORVASC) 5 mg tabletTake 1 tablet by mouth once daily.Disp: 30 tabletRfl: 5 COMPREHENSIVE METABOLIC PANEL [SQCMP] Order #: [id number] FUTURE COMPLETE BLOOD COUNT AND DIFFERENTIAL [SQCBCDIF] Order #: [id number] FUTURE Prescriptions as of 10/09/2024 - amLODIPine (NORVASC) 5 mg tablet Take 1 tablet by mouth once daily. - metoprolol succinate ER (TOPROL XL) 25 mg 24 hr tablet Take 1 tablet by mouth once daily. - atorvastatin (LIPITOR) 80 mg tablet Take 1 tablet by mouth daily at bedtime. For cholesterol. - glimepiride (AMARYL) 1 mg tablet Take 1 tablet by mouth daily with breakfast. - lisinopril (ZESTRIL) 40 mg tablet Take 1 tablet by mouth once daily. - pioglitazone (ACTOS) 15 mg tablet Take 1 tablet by mouth once daily. - povidone, PF, (IVIZIA, PF,) 0.5 % drop Use 1 Drop in eyes three times a day. - blood sugar diagnostic (BLOOD GLUCOSE TEST) test strip Test blood sugar(s) 1 times daily. Dx: E11.9. Insulin: No, Brand covered by insurance - omeprazole (PRILOSEC) 20 mg capsule take 1 capsule by mouth every other day 1/2 HOUR BEFORE BREAKFAST - MULTIVITS,TH W-CA,FE,OTH MIN (MULTIVITAMIN AND MINERAL ORAL) Take 1 tablet by mouth once daily. - lancets(FREESTYLE LANCETS) use daily - blood glucose control highANDlow(FREESTYLE CONTROL SOLN) use as directed Meds Comments as of 05/09/2019: Problem List As Of Date 10/09/2024 Noted Resolved 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 *07/21/2005 DIFFUS CYSTIC MASTOPATHY [N60.19] 07/21/2005 Chronic cough [R05.3] 08/08/2009 08/30/2015 Essential hypertension, benign [I10] 07/30/2010 Lumbar disc disease with radiculopathy [M51.16] 02/25/2011 Lateral epicondylitis [M77.10] 08/18/2011 07/01/2015 Vitamin D deficiency [E55.9] 08/20/2011 Contact eczematous dermatitis [L25.9] 03/09/2013 03/22/2019 Rash and other nonspecific skin eruption [R21] 03/09/2013 09/29/2018 Actinic keratosis [L57.0] 03/09/2013 03/22/2019 Actinic skin damage [L57.8] 03/09/2013 03/22/2019 Xerosis cutis [L85.3] 03/09/2013 03/22/2019 Carpal tunnel syndrome [G56.00] 09/29/2013 03/22/2019 Gall bladder stones [K80.20] 06/29/2014 10/19/2014 Gall bladder polyp [K82.4] 06/29/2014 10/19/2014 RUQ pain [R10.11] 06/29/2014 10/19/2014 Arteriosclerosis of both carotid arteries [I65.*10/19/2014 Forgetfulness [R68.89] 08/30/2015 Hyperlipidemia LDL goal <100 [E78.5] 02/21/2016 Osteoporosis [M81.0] 03/17/2016 Personal history of colonic polyps [Z86.0100] 10/13/2016 Trochanteric bursitis of left hip [M70.62] 12/07/2016 03/22/2019 Acute blood loss anemia [D62] 09/28/2017 09/29/2018 Closed fracture of hip (HCC) [S72.009A] 09/28/2017 03/22/2019 Acid reflux [K21.9] 09/28/2017 Stress incontinence [N39.3] 09/28/2017 DDD (degenerative disc disease), cervical [M50.*09/29/2018 Prescriptions ordered this encounter Disp Refills Start End AMLODIPINE 5 MG TABLET 30 t* 5 10/09/2024 04/07/2025 Route: ORAL Sig: Take 1 tablet by mouth once daily. Encounter Status:Closed by ARNOLD GOTTLIEB on 10/09/24 Normal [facility] Basic Metabolic Profile (BMP )on 10-08-2024 BUN/CRE 27.6 RATIO High 10-20 [facility] Comment on above: Performed By: #### L 500.2500, L100.0100 #### [facility] [address] [place], [address] CA,Total 8.5 mg/dL Normal 8.5-10.1 [facility] Comment on above: Performed By: #### L 500.2500, L100.0100 #### [facility] [address] [place], [address] Chloride [Moles/Vol] 110 mmol/L High 98-107 [facility] Comment on above: Performed By: #### L 500.2500, L100.0100 #### [facility] [address] [place], [address] CO2 [Moles/Vol] 27.0 mmol/L Normal 21.0-32.0 [facility] Comment on above: Performed By: #### L 500.2500, L100.0100 #### [facility] [address] [place], [address] Creatinine [Mass/Vol] 1.34 mg/dL High 0.55-1.02 [facility] Comment on above: Result Comment: The validity of the calculated GFR GFRAA in patients over 70 years has not been determined. Clinical correlation is essential. Performed By: #### L 500.2500, L100.0100 #### [facility] [address] [place], [address] ECRCL 26.21 ml/min Normal [facility] Comment on above: Performed By: #### L 500.2500, L100.0100 #### [facility] [address] [place], [address] EST GFR - AA 48 mL/min Low >60 [facility] Comment on above: Result Comment: Afri can Tanz[place] GFR Calc Performed By: #### L 500.2500, L100.0100 #### [facility] [address] [place], [address] GAP 4 Low 5-15 [facility] Comment on above: Performed By: #### L 500.2500, L100.0100 #### [facility] [address] [place], [address] GFR/1.73 sq M.predicted among non-blacks MDRD (S/P/Bld) [Vol rate/Area] 40 mL/min/{1.73_m2} Low >60 [facility] Comment on above: Result Comment: Non- GFR Calc Performed By: #### L 500.2500, L100.0100 #### [facility] [address] [place], [address] Glucose [Mass/Vol] 142 mg/dL High 74-106 [facility] Comment on above: Result Comment: Fast ing Glucose result greater than or equal to 126 mg/dL suggests DIABETES MELLITUS per A.D.A. criteria. Performed By: #### L 500.2500, L100.0100 #### [facility] [address] [place], [address] Potassium [Moles/Vol] 3.4 mmol/L Low 3.5-5.1 [facility] Comment on above: Performed By: #### L 500.2500, L100.0100 #### [facility] [address] [place], [address] Sodium [Moles/Vol] 141 mmol/L Normal 136-145 [facility] Comment on above: Performed By: #### L 500.2500, L100.0100 #### [facility] [address] [place], [address] Urea nitrogen [Mass/Vol] 37 mg/dL High 7-18 [facility] Comment on above: Performed By: #### L 500.2500, L100.0100 #### [facility] [address] [place], [address] BUN Normal 7-18 [facility] Comment on above: Result Comment: Canc elled via OM: MD Ordered Performed By: #### L 500.2500, L100.0100 #### [facility] [address] [place], [address] BUN/CRE Normal 10-20 [facility] Comment on above: Result Comment: Canc elled via OM: MD Ordered Performed By: #### L 500.2500, L100.0100 #### [facility] [address] [place], [address] CA,Total Normal 8.5-10.1 [facility] Comment on above: Result Comment: Canc elled via OM: MD Ordered Performed By: #### L 500.2500, L100.0100 #### [facility] [address] [place], [address] CL Normal 98-107 [facility] Comment on above: Result Comment: Canc elled via OM: MD Ordered Performed By: #### L 500.2500, L100.0100 #### [facility] [address] [place], [address] CO2 Normal 21.0-32.0 [facility] Comment on above: Result Comment: Canc elled via OM: MD Ordered Performed By: #### L 500.2500, L100.0100 #### [facility] [address] [place], [address] CREAT,SERUM Normal 0.55-1.02 [facility] Comment on above: Result Comment: Canc elled via OM: MD Ordered Performed By: #### L 500.2500, L100.0100 #### [facility] [address] [place], [address] EST GFR Normal >60 [facility] Comment on above: Result Comment: Canc elled via OM: MD Ordered Performed By: #### L 500.2500, L100.0100 #### [facility] [address] [place], [address] EST GFR - AA Normal >60 [facility] Comment on above: Result Comment: Canc elled via OM: MD Ordered Performed By: #### L 500.2500, L100.0100 #### [facility] [address] [place], [address] GAP Normal 5-15 [facility] Comment on above: Result Comment: Canc elled via OM: MD Ordered Performed By: #### L 500.2500, L100.0100 #### [facility] [address] [place], [address] GLU Normal 74-106 [facility] Comment on above: Result Comment: Canc elled via OM: MD Ordered Performed By: #### L 500.2500, L100.0100 #### [facility] [address] [place], [address] Potassium Normal 3.5-5.1 [facility] Comment on above: Result Comment: Canc elled via OM: MD Ordered Performed By: #### L 500.2500, L100.0100 #### [facility] [address] [place], [address] Basic Metabolic Profile (BMP) Normal 136-145 [facility] Comment on above: Result Comment: Canc elled via OM: MD Ordered Performed By: #### L 500.2500, L100.0100 #### [facility] [address] [place], [address] Bedside Glucoseon 10-08-2024 FINGERSTICK GLU 130 mg/dL High 74-106 [facility] Comment on above: Result Comment: LOAN ACOSTA OF PATIENT CARE PER NURSING PROTOCOL Performed By: #### L 500.2500, L100.0100 #### [facility] [address] [place], [address] CBC W/Diff, Automatedon 09-20 Absolute Lymph 1.24 X10 3/uL Normal 0.83-4.51 [facility] Comment on above: Performed By: #### L 500.2500, L100.0100 #### [facility] [address] [place], [address] Absolute Neut 4.0 X10 3/uL Normal 2.0-7.7 [facility] Comment on above: Performed By: #### L 500.2500, L100.0100 #### [facility] [address] [place], [address] Basophils/100 WBC (Bld) 0.5 % Normal 0-1 [facility] Comment on above: Performed By: #### L 500.2500, L100.0100 #### [facility] [address] [place], [address] Eosinophils/100 WBC (Bld) 3.1 % Normal 0-5 [facility] Comment on above: Performed By: #### L 500.2500, L100.0100 #### [facility] [address] [place], [address] Erythrocyte distribution width (RBC) [Ratio] 13.9 % Normal 11.6-14.6 [facility] Comment on above: Performed By: #### L 500.2500, L100.0100 #### [facility] [address] [place], [address] Hematocrit (Bld) [Volume fraction] 29.1 % Low 37-47 [facility] Comment on above: Performed By: #### L 500.2500, L100.0100 #### [facility] [address] [place], [address] Hemoglobin (Bld) [Mass/Vol] 9.2 g/dL Low 12.0-15.0 [facility] Comment on above: Performed By: #### L 500.2500, L100.0100 #### [facility] [address] [place], [address] IG% 0.500 Normal 0.0-0.9 [facility] Comment on above: Result Comment: IG% - Immature Granulocytes (promyelocytes, myelocytes and metamyelocytes) > 1% indicates that a LEFT SHIFT is Present. Performed By: #### L 500.2500, L100.0100 #### [facility] [address] [place], [address] Lymphocytes/100 WBC (Bld) 20.0 % Normal 19-41 [facility] Comment on above: Performed By: #### L 500.2500, L100.0100 #### [facility] [address] [place], [address] MCH (RBC) [Entitic mass] 29.4 pg Normal 27.0-32.0 [facility] Comment on above: Performed By: #### L 500.2500, L100.0100 #### [facility] [address] [place], [address] MCHC (RBC) [Mass/Vol] 31.6 g/dL Low 32-36 [facility] Comment on above: Performed By: #### L 500.2500, L100.0100 #### [facility] [address] [place], [address] MCV (RBC) [Entitic vol] 93.0 fL Normal 81-99 [facility] Comment on above: Performed By: #### L 500.2500, L100.0100 #### [facility] [address] [place], [address] Monocytes/100 WBC (Bld) 11.1 % High 0-10 [facility] Comment on above: Performed By: #### L 500.2500, L100.0100 #### [facility] [address] [place], [address] Neutrophils/100 WBC (Bld) 64.8 % Normal 47-70 [facility] Comment on above: Performed By: #### L 500.2500, L100.0100 #### [facility] [address] [place], [address] Nucleated RBC (Bld) [#/Vol] 0 10*3/uL Normal 0-5 [facility] Comment on above: Performed By: #### L 500.2500, L100.0100 #### [facility] [address] [place], [address] Platelet mean volume (Bld) [Entitic vol] 9.7 fL Normal 6.2-12.0 [facility] Comment on above: Performed By: #### L 500.2500, L100.0100 #### [facility] [address] [place], [address] Platelets (Bld) [#/Vol] 193 10*3/uL Normal 150-450 [facility] Comment on above: Performed By: #### L 500.2500, L100.0100 #### [facility] [address] [place], [address] RBC (Bld) [#/Vol] 3.13 10*6/uL Low 4.2-5.4 [facility] Comment on above: Performed By: #### L 500.2500, L100.0100 #### [facility] [address] [place], [address] RDW SD 46.9 fl High 35.1-43.9 [facility] Comment on above: Performed By: #### L 500.2500, L100.0100 #### [facility] [address] [place], [address] WBC (Bld) [#/Vol] 6.2 10*3/uL Normal 4.4-11.0 [facility] Comment on above: Performed By: #### L 500.2500, L100.0100 #### [facility] [address] [place], [address] Absolute Neut Normal 2.0-7.7 [facility] Comment on above: Result Comment: Canc elled via OM: MD Ordered Performed By: #### L 500.2500, L100.0100 #### [facility] [address] [place], [address] HCT Normal 37-47 [facility] Comment on above: Result Comment: Canc elled via OM: MD Ordered Performed By: #### L 500.2500, L100.0100 #### [facility] [address] [place], [address] HGB Normal 12.0-15.0 [facility] Comment on above: Result Comment: Canc elled via OM: MD Ordered Performed By: #### L 500.2500, L100.0100 #### [facility] [address] [place], [address] MCH Normal 27.0-32.0 [facility] Comment on above: Result Comment: Canc elled via OM: MD Ordered Performed By: #### L 500.2500, L100.0100 #### [facility] [address] [place], [address] MCHC Normal 32-36 [facility] Comment on above: Result Comment: Canc elled via OM: MD Ordered Performed By: #### L 500.2500, L100.0100 #### [facility] [address] [place], [address] MCV Normal 81-99 [facility] Comment on above: Result Comment: Canc elled via OM: MD Ordered Performed By: #### L 500.2500, L100.0100 #### [facility] [address] [place], [address] NEUT% Normal 47-70 [facility] Comment on above: Result Comment: Canc elled via OM: MD Ordered Performed By: #### L 500.2500, L100.0100 #### [facility] [address] [place], [address] PLT Normal 150-450 [facility] Comment on above: Result Comment: Canc elled via OM: MD Ordered Performed By: #### L 500.2500, L100.0100 #### [facility] [address] [place], [address] RBC Normal 4.2-5.4 [facility] Comment on above: Result Comment: Canc elled via OM: MD Ordered Performed By: #### L 500.2500, L100.0100 #### [facility] [address] [place], [address] RDW CV Normal 11.6-14.6 [facility] Comment on above: Result Comment: Canc elled via OM: MD Ordered Performed By: #### L 500.2500, L100.0100 #### [facility] [address] [place], [address] RDW SD Normal 35.1-43.9 [facility] Comment on above: Result Comment: Canc elled via OM: MD Ordered Performed By: #### L 500.2500, L100.0100 #### [facility] [address] [place], [address] WBC Normal 4.4-11.0 [facility] Comment on above: Result Comment: Canc elled via OM: MD Ordered Performed By: #### L 500.2500, L100.0100 #### [facility] [address] [place], [address] Discharge Instructionon 09-20 Discharge Instruction [facility] Medical Records Department [address] [place] [address] Instructions for Home/Discharge Instructions 10/08/24 0840 MR#: [id number] Acct: [id number] Name: LUCILLE THURMAN Rep #: [id number] : 1935 89 From: Tone Bethea MD PCP: AMAURY Louise Status:ADM IN Discharge Instructions Diet Discharge Diet: 1800 Calorie Control Diet and 2000 mg Sodium Diet DC O2, CPAP, BIPAP needs Home O2 Discharge instructions: No Dressing / Incision Discharge Activity: Return to Normal Activity Weight Bearing Status: Weight bearing as tolerated Dressing / Incision Call your doctor if you observe: Fever of 101 or Higher, Coldness, Increased Pain, Numbness or Tingling, Change in Color, Inability to urinate, Inability to have a bowel movement, Shortness of breath, Dizziness, Fainting spells, Swelling in the ankles, Chest pain, Prolonged hiccupping, Increased palpitations (irregular heartbeat) and Calf discomfort Follow Up Care When: IN 2 WEEKS Test Results: Test results from this visit will be discussed in further detail at your follow-up appointment, if applicable. Discharge Plan Admission Admit Date/Time: 10/04/24 14:31 Primary Reason for Your Visit: Non-STEMI. NEELIMA Attending Provider: Tone Bethea Primary Care Provider: Treva Sandoval Consulting Providers: Jenifer Valente; Jonah Bashir; Shanelle Daly Instructions Additional Instructions / Restrictions: Hold lisinopril as mentioned in the discharge instruction. Start Lasix on 10/12 after BMP in 2 to 3 days in consultation with PCP Discharge Orders/Prescriptions Prescriptions: New furosemide 40 mg Tablet 40 mg PO DAILY 30 Days Qty: 30 2RF Rx Instructions: Start on 10/12/2024 in consultation with PCP. clopidogrel 75 mg Tablet 75 mg PO DAILY 30 Days Qty: 30 1RF Rx Instructions: Discontinue if platelet count drops less than 50,000 or hemoglobin less than 8 g% aspirin 81 mg Tablet,Delayed Release (Dr/Ec) 81 mg PO BREAKFAST 30 Days Qty: 30 4RF carvedilol 3.125 mg Tablet 3.125 mg PO BID 30 Days Qty: 60 3RF Jardiance 10 mg Tablet 10 mg PO DAILY 30 Days Qty: 30 2RF Continued amlodipine 5 mg tablet 5 mg PO DAILY atorvastatin 80 MG tablet 80 mg PO QHS Patient Comments: cholesterol multivitamin with folic acid 1 TABLET tablet 1 tab PO DAILYCM Qty: 30 0RF Patient Comments: supplement omeprazole 40 MG capsule,delayed release(DR/EC) 40 mg PO DAILY Poglitasone 15 mg PO DAILY (DME) True Metrix Glucose Test Strip Strip MISCELLANEOUS DAILY Held glimepiride 2 MG tablet 4 mg PO DAILY Hold Instructions: Hold today and then start low-dose 2 mg daily because of NEELIMA. Patient Comments: blood sugar lisinopril 40 MG tablet 40 mg PO DAILY Hold Instructions: Hold for 5 days. Start with lower dose 10 mg in consultation with PCP Patient Comments: blood pressure Referrals / Follow Up: Jonah Bashir MD [Med Staff - Active Staff] - Within 1 Month Treva Sandoval ORDER CLERK-C [Primary Care Provider] - Within 1 Week Disposition Disposition (needs filled in before D/C Order can be placed): Home, Self Care 10/08/24 1019 Tone Bethea MD CC: ORDER CLERKAnna Sandoval; Dr. Jonah Bashir MD; Dr. Jenifer Valente DO; Dr. Shanelle Daly MD Signed [facility] Basic Metabolic Profile (BMP )on 10-07-2024 BUN/CRE 23.3 RATIO High 10-20 [facility] Comment on above: Performed By: #### L 100.0100, L500.2500 #### [facility] [address] [place], [address] CA,Total 8.6 mg/dL Normal 8.5-10.1 [facility] Comment on above: Performed By: #### L 100.0100, L500.2500 #### [facility] [address] [place], [address] Chloride [Moles/Vol] 104 mmol/L Normal 98-107 [facility] Comment on above: Performed By: #### L 100.0100, L500.2500 #### [facility] [address] [place], [address] CO2 [Moles/Vol] 29.0 mmol/L Normal 21.0-32.0 [facility] Comment on above: Performed By: #### L 100.0100, L500.2500 #### [facility] [address] [place], [address] Creatinine [Mass/Vol] 1.80 mg/dL High 0.55-1.02 [facility] Comment on above: Result Comment: The validity of the calculated GFR GFRAA in patients over 70 years has not been determined. Clinical correlation is essential. Performed By: #### L 100.0100, L500.2500 #### [facility] [address] [place], [address] ECRCL 19.58 ml/min Normal [facility] Comment on above: Performed By: #### L 100.0100, L500.2500 #### [facility] [address] [place], [address] EST GFR - AA 34 mL/min Low >60 [facility] Comment on above: Result Comment: Afri can Tanzanian GFR Calc Performed By: #### L 100.0100, L500.2500 #### [facility] [address] [place], [address] GAP 6 Normal 5-15 [facility] Comment on above: Performed By: #### L 100.0100, L500.2500 #### [facility] [address] [place], [address] GFR/1.73 sq M.predicted among non-blacks MDRD (S/P/Bld) [Vol rate/Area] 28 mL/min/{1.73_m2} Low >60 [facility] Comment on above: Result Comment: Non- GFR Calc Performed By: #### L 100.0100, L500.2500 #### [facility] [address] [place], [address] Glucose [Mass/Vol] 124 mg/dL High 74-106 [facility] Comment on above: Result Comment: Fast ing Glucose result from 100 to 125 mg/dL suggests IMPAIRED HOMEOSTASIS per A.D.A. criteria. Performed By: #### L 100.0100, L500.2500 #### [facility] [address] [place], [address] Potassium [Moles/Vol] 3.8 mmol/L Normal 3.5-5.1 [facility] Comment on above: Performed By: #### L 100.0100, L500.2500 #### [facility] [address] [place], [address] Sodium [Moles/Vol] 139 mmol/L Normal 136-145 [facility] Comment on above: Performed By: #### L 100.0100, L500.2500 #### [facility] [address] [place], [address] Urea nitrogen [Mass/Vol] 42 mg/dL High 7-18 [facility] Comment on above: Performed By: #### L 100.0100, L500.2500 #### [facility] [address] [place], [address] Bedside Glucoseon 10-07-2024 FINGERSTICK GLU 175 mg/dL High -106 [facility] Comment on above: Result Comment: LOAN GEMENT OF PATIENT CARE PER NURSING PROTOCOL Performed By: #### L 100.0100, L500.2500 #### [facility] [address] [place], [address] FINGERSTICK GLU 158 mg/dL High -106 [facility] Comment on above: Result Comment: LOAN GEMENT OF PATIENT CARE PER NURSING PROTOCOL Performed By: #### L 500.2500, L100.0100 #### [facility] [address] [place], [address] FINGERSTICK GLU 120 mg/dL High [address] [place] [address] Comment on above: Result Comment: LOAN GEMENT OF PATIENT CARE PER NURSING PROTOCOL Performed By: #### L 100.0100, L500.2500 #### [facility] [address] [place], [address] FINGERSTICK GLU 210 mg/dL High [facility]106 [facility] Comment on above: Result Comment: LOAN GEMENT OF PATIENT CARE PER NURSING PROTOCOL Performed By: #### L 500.2500, L100.0100 #### [facility] [address] [place], [address] FINGERSTICK GLU 210 mg/dL High [address] [place] [address] Comment on above: Result Comment: LOAN GEMENT OF PATIENT CARE PER NURSING PROTOCOL Performed By: #### L 500.2500, L100.0100 #### [facility] [address] [place], [address] FINGERSTICK GLU 238 mg/dL High [facility]106 [facility] Comment on above: Result Comment: LOAN GEMENT OF PATIENT CARE PER NURSING PROTOCOL Performed By: #### L 500.2500, L100.0100 #### [facility] [facility] [address] [place], [address] FINGERSTICK GLU 138 mg/dL High 74-106 [facility] Comment on above: Result Comment: LOAN GEMENT OF PATIENT CARE PER NURSING PROTOCOL Performed By: #### L 500.2500, L100.0100 #### [facility] [address] [place], [address] FINGERSTICK GLU 134 mg/dL High 74-106 [facility] Comment on above: Result Comment: LOAN GEMENT OF PATIENT CARE PER NURSING PROTOCOL Performed By: #### L 501.080 #### [facility] [address] [place], [address] FINGERSTICK GLU 125 mg/dL High 74-106 [facility] Comment on above: Result Comment: LOAN GEMENT OF PATIENT CARE PER NURSING PROTOCOL Performed By: #### L 500.2500, L100.0100 #### [facility] [address] [place], [address] CBC W/Diff, Automatedon 09-20 Absolute Lymph 1.32 X10 3/uL Normal 0.83-4.51 [facility] Comment on above: Performed By: #### L 100.0100, L500.2500 #### [facility] [address] [place], [address] Absolute Neut 4.7 X10 3/uL Normal 2.0-7.7 [facility] Comment on above: Performed By: #### L 100.0100, L500.2500 #### [facility] [address] [place], [address] Basophils/100 WBC (Bld) 0.4 % Normal 0-1 [facility] Comment on above: Performed By: #### L 100.0100, L500.2500 #### [facility] [address] [place], [address] Eosinophils/100 WBC (Bld) 2.1 % Normal 0-5 [facility] Comment on above: Performed By: #### L 100.0100, L500.2500 #### [facility] [address] [place], [address] Erythrocyte distribution width (RBC) [Ratio] 14.2 % Normal 11.6-14.6 [facility] Comment on above: Performed By: #### L 100.0100, L500.2500 #### [facility] [address] [place], [address] Hematocrit (Bld) [Volume fraction] 29.2 % Low 37-47 [facility] Comment on above: Performed By: #### L 100.0100, L500.2500 #### [facility] [address] [place], [address] Hemoglobin (Bld) [Mass/Vol] 9.4 g/dL Low 12.0-15.0 [facility] Comment on above: Performed By: #### L 100.0100, L500.2500 #### [facility] [address] [place], [address] IG% 0.300 Normal 0.0-0.9 [facility] Comment on above: Result Comment: IG% - Immature Granulocytes (promyelocytes, myelocytes and metamyelocytes) > 1% indicates that a LEFT SHIFT is Present. Performed By: #### L 100.0100, L500.2500 #### [facility] [address] [place], [address] Lymphocytes/100 WBC (Bld) 18.6 % Low 19-41 [facility] Comment on above: Performed By: #### L 100.0100, L500.2500 #### [facility] [address] [place], [address] MCH (RBC) [Entitic mass] 29.3 pg Normal 27.0-32.0 [facility] Comment on above: Performed By: #### L 100.0100, L500.2500 #### [facility] [address] [place], [address] MCHC (RBC) [Mass/Vol] 32.2 g/dL Normal 32-36 [facility] Comment on above: Performed By: #### L 100.0100, L500.2500 #### [facility] [address] [place], [address] MCV (RBC) [Entitic vol] 91.0 fL Normal 81-99 [facility] Comment on above: Performed By: #### L 100.0100, L500.2500 #### [facility] [address] [place], [address] Monocytes/100 WBC (Bld) 11.7 % High 0-10 [facility] Comment on above: Performed By: #### L 100.0100, L500.2500 #### [facility] [address] [place], [address] Neutrophils/100 WBC (Bld) 66.9 % Normal 47-70 [facility] Comment on above: Performed By: #### L 100.0100, L500.2500 #### [facility] [address] [place], [address] Nucleated RBC (Bld) [#/Vol] 0 10*3/uL Normal 0-5 [facility] Comment on above: Performed By: #### L 100.0100, L500.2500 #### [facility] [address] [place], [address] Platelet mean volume (Bld) [Entitic vol] 9.7 fL Normal 6.2-12.0 [facility] Comment on above: Performed By: #### L 100.0100, L500.2500 #### [facility] [address] [place], [address] Platelets (Bld) [#/Vol] 206 10*3/uL Normal 150-450 [facility] Comment on above: Performed By: #### L 100.0100, L500.2500 #### [facility] [address] [place], [address] RBC (Bld) [#/Vol] 3.21 10*6/uL Low 4.2-5.4 [facility] Comment on above: Performed By: #### L 100.0100, L500.2500 #### [facility] [address] [place], [address] RDW SD 47.3 fl High 35.1-43.9 [facility] Comment on above: Performed By: #### L 100.0100, L500.2500 #### [facility] [address] [place], [address] WBC (Bld) [#/Vol] 7.1 10*3/uL Normal 4.4-11.0 [facility] Comment on above: Performed By: #### L 100.0100, L500.2500 #### [facility] [address] [place], [address] Consultation - Nephrologyon 10-07-2024 Consultation - Nephrology [facility] Medical Records Department [address] [place] [address] Consultation - Nephrology 10/07/24 1123 MR#: [id number] Acct: [id number] Name: LUCILLE THURMAN Rep #: [id number] : 1935 89 From: Shanelle Daly MD PCP: AMAURY Louise Status:ADM IN Location: [place] [address] Assessment Plan Assessment/Plan (1) NEELIMA (acute kidney injury): (2) Chronic kidney disease, stage 3b: PLAN: Plan Assessment/Plan: The patient is a 89-year-old female with past history of chronic kidney disease stage G3a, type 2 diabetes mellitus, hypertension, hyperlipidemia, and GERD. Patient presented to the hospital on 10/04/2024 with 2-day history of dyspnea. The patient was admitted for treatment of acute hypoxic respiratory failure. Patient initially required NIPPV, and she has been treated with furosemide for decongestion of pulmonary edema. Nephrology is asked to the patient because of NEELIMA and CKD. Acute kidney injury on chronic kidney disease stage G3b. Baseline serum creatinine appears to be around 1.20 mg/dL. Serum creatinine has increased up to 1.80 mg/dL today on 10/07/2024. The patient status post cardiac catheterization on 10/06/2024. She has also been diuresed to treat pulmonary edema. There has been no prolonged periods of hypotension on review of vital signs. I suspect that the patient has NEELIMA from cardiorenal syndrome. However, patient appears to be compensated on my exam today. Her lungs are clear with no significant edema to lower extremities. Therefore, the rise in serum creatinine could also be from recent aggressive diuresis. I will check urinalysis, urine indices, and renal ultrasound. I would recommend holding diuretics for now since patient appears to be euvolemic on exam. She is on room air without dyspnea. We can decide on the need for diuretic on a day-to-day basis for now. Will recheck renal function, volume status, acid-base and electrolytes again tomorrow. HPI Consult Data Date of Consult: 10/07/24 HPI Narrative Reason for Consultation: NEELIMA on CKD HPI Narrative: The patient is a 89-year-old female with past history of chronic kidney disease stage G3a, type 2 diabetes mellitus, hypertension, hyperlipidemia, and GERD. Patient presented to the hospital on 10/04/2024 with 2-day history of dyspnea. The patient was admitted for treatment of acute hypoxic respiratory failure. Patient initially required NIPPV, and she is treated with furosemide infusion for decongestion of pulmonary edema. Nephrology is asked see the patient because of acute kidney injury on chronic kidney disease. The patient denies current chest pain or pressure. Dyspnea has markedly improved over the past 48 hours. She is no longer requiring supplemental oxygen. The patient denies nausea, vomiting, or diarrhea. Edema of the lower extremities has resolved. The patient did undergo left heart catheterization on 10/06/2024 and received contrast. [facility] Medical History Anemia Diabetes Non-smoker Skin cancer Dehydration GERD (gastroesophageal reflux disease) Acute blood loss anemia Closed left hip fracture HTN (hypertension) Hypercholesteremia Type II diabetes mellitus Home Medications ???Medication ???Instructions ???Recorded ???Last Taken ???Type atorvastatin 80 mg tablet 80 mg PO QHS 08/25/13 Unknown History glimepiride 2 mg tablet 4 mg PO DAILY 08/25/13 02/08/15 07:00 History lisinopril 40 mg tablet 40 mg PO DAILY 08/25/13 02/14/16 05:00 History multivitamin with folic acid 400 1 tab PO DAILYCM #30 tabs 02/11/15 Unknown Rx mcg tablet amlodipine 5 mg tablet 5 mg PO DAILY 04/10/19 Unknown History Poglitasone 15 mg PO DAILY 05/23/19 Unknown History omeprazole 40 mg capsule,delayed 40 mg PO DAILY 05/23/19 Unknown History release blood sugar diagnostic (True 10/04/24 Unknown History Metrix Glucose Test Strip) Allergy/AdvReac Type Severity Reaction Status Date / Time metformin Allergy Hives Verified 05/23/19 08:24 morphine AdvReac Nausea Verified 05/23/19 08:24 oxycodone (Oxycodone) AdvReac Nausea Verified 05/23/19 08:24 Family History Sister Breast cancer Colon cancer Diabetes Uncle Heart disease Brother Kidney disease Surgical History History of appendectomy History of cholecystectomy History of hip replacement History of shoulder replacement S/P ORIF (open reduction internal fixation) fracture Social History household members: none current occupational status: retired Smoking Status: Never smoker alcohol intake: never substance use type: does not use Physical Exam Narrative General: Alert and orien (more content not included)... Normal [facility] Creatinine, Urineon 10-07-19 25 URINE CREAT 51.80 mg/dL Normal NO RANGE EST. [facility] Comment on above: Performed By: #### L 100.0100, L500.2500 #### [facility] [address] [place], [address] Kidney and Bladderon 025 Kidney and Bladder [facility] Imaging Services [address] [place] [address] Kidney and Bladder MR#: [id number] Acct: [id number] Name: LUCILLE THURMAN Rep #: [id number] : 1935 F 89 From: Gideon Correia MD PCP: AMAURY Louise Status: ADM IN Study: Kidney and Bladder Date of Exam: 10/07/24 Exam# [id number] Ordering [place]: [place] [id number] STUDY: RENAL ULTRASOUND - COMPLETE REASON FOR EXAM: Female, 89 years old. Elevated BUN/creatinine TECHNIQUE: Ultrasound evaluation of the kidneys was performed with real-time and static montalvo-scale imaging. COMPARISON: None. FINDINGS: RIGHT KIDNEY: Normal location of the right kidney, which is normal in size. The right kidney measures 9.2 x 4.7 x 5.1 cm. There is a normal cortex of the right kidney. The renal cortex measures 1.2 cm. There is no right renal mass or cyst. There are no right renal calculi. There is no right hydronephrosis. DISTAL RIGHT URETER: There is non-visualization of the distal right ureter. There is no demonstrated right ureterovesical junction calculus. There is a visualized right ureteral jet. LEFT KIDNEY: Normal location of the left kidney, which is normal in size. The left kidney measures 10.4 x 4.4 x 4.7 cm. There is a normal cortex of the left kidney. The renal cortex measures 1.4 cm. There is no left renal mass or cyst. There are no left renal calculi. There is no left hydronephrosis. DISTAL LEFT URETER: There is non-visualization of the distal left ureter. There is no demonstrated left ureterovesical junction calculus. There is a visualized left ureteral jet. AORTA: There is no elongation or tortuosity of the abdominal aorta. I.V.C.: The IVC is patent. BLADDER: The distended urinary bladder has a volume of 157 ml. The empty urinary bladder has a volume of less than 10 ml. There is a normal wall thickness of the distended urinary bladder. There is no demonstrated mass within the urinary bladder. There are no demonstrated bladder calculi. US/Kidney and Bladder IMPRESSION: No suspicious sonographic findings Electronically Signed: Adam Correia MD at 8:15 EST , CC: AMAURY Sandoval; Dr. Tone Bethea MD Foundry Superintendant: Signed Normal [facility] Urea Nitrogen, Urineon 10-07 URINE UREA 546 mg/dL Normal NO RANGE EST. [facility] Comment on above: Performed By: #### L 100.0100, L500.2500 #### [facility] [address] [place], [address] Urinalysis, Completeon 10-07 EPI,SQUAMOUS 0-5 SEEN Normal 5-10 [facility] Comment on above: Order Comment: CLEAN CATCH Performed By: #### L 100.0100, L500.2500 #### [facility] [address] [place], [address] BACTERIA 0 SEEN Normal None Seen [facility] Comment on above: Order Comment: CLEAN CATCH Performed By: #### L 100.0100, L500.2500 #### [facility] [address] [place], [address] Mucus Ql (Urine sed) 0 SEEN Normal [facility] Comment on above: Order Comment: CLEAN CATCH Performed By: #### L 100.0100, L500.2500 #### [facility] [address] [place], [address] RBC 0 SEEN Normal 0-5 [facility] Comment on above: Order Comment: CLEAN CATCH Performed By: #### L 100.0100, L500.2500 #### [facility] [address] [place], [address] WBC 0 SEEN Normal 0-5 [facility] Comment on above: Order Comment: CLEAN CATCH Performed By: #### L 100.0100, L500.2500 #### [facility] [address] [place], [address] Basic Metabolic Profile (BMP )on 10-06-2024 BUN/CRE 27.5 RATIO High 10-20 [facility] Comment on above: Performed By: #### L 500.2500, L100.0100 #### [facility] [address] [place], [address] CA,Total 9.0 mg/dL Normal 8.5-10.1 [facility] Comment on above: Performed By: #### L 500.2500, L100.0100 #### [facility] [address] [place], [address] Chloride [Moles/Vol] 102 mmol/L Normal 98-107 [facility] Comment on above: Performed By: #### L 500.2500, L100.0100 #### [facility] [address] [place], [address] CO2 [Moles/Vol] 28.0 mmol/L Normal 21.0-32.0 [facility] Comment on above: Performed By: #### L 500.2500, L100.0100 #### [facility] [address] [place], [address] Creatinine [Mass/Vol] 1.67 mg/dL High 0.55-1.02 [facility] Comment on above: Result Comment: The validity of the calculated GFR GFRAA in patients over 70 years has not been determined. Clinical correlation is essential. Performed By: #### L 500.2500, L100.0100 #### [facility] [address] [place], [address] ECRCL 21.44 ml/min Normal [facility] Comment on above: Performed By: #### L 500.2500, L100.0100 #### [facility] [address] [place], [address] EST GFR - AA 37 mL/min Low >60 [facility] Comment on above: Result Comment: Afri can Tanzanian GFR Calc Performed By: #### L 500.2500, L100.0100 #### [facility] [address] [place], [address] GAP 8 Normal 5-15 [facility] Comment on above: Performed By: #### L 500.2500, L100.0100 #### [facility] [address] [place], [address] GFR/1.73 sq M.predicted among non-blacks MDRD (S/P/Bld) [Vol rate/Area] 31 mL/min/{1.73_m2} Low >60 [facility] Comment on above: Result Comment: Non- GFR Calc Performed By: #### L 500.2500, L100.0100 #### [facility] [address] [place], [address] Glucose [Mass/Vol] 142 mg/dL High 74-106 [facility] Comment on above: Result Comment: Fast ing Glucose result greater than or equal to 126 mg/dL suggests DIABETES MELLITUS per A.D.A. criteria. Performed By: #### L 500.2500, L100.0100 #### [facility] [address] [place], [address] Potassium [Moles/Vol] 3.5 mmol/L Normal 3.5-5.1 [facility] Comment on above: Performed By: #### L 500.2500, L100.0100 #### [facility] [address] [place], [address] Sodium [Moles/Vol] 138 mmol/L Normal 136-145 [facility] Comment on above: Performed By: #### L 500.2500, L100.0100 #### [facility] [address] [place], [address] Urea nitrogen [Mass/Vol] 46 mg/dL High 7-18 [facility] [facility] Comment on above: Performed By: #### L 500.2500, L100.0100 #### [facility] [address] [place], [address] CBC W/Diff, Automatedon 09-20 Absolute Lymph 1.46 X10 3/uL Normal 0.83-4.51 [facility] Comment on above: Performed By: #### L 500.2500, L100.0100 #### [facility] [address] [place], [address] Absolute Neut 5.3 X10 3/uL Normal 2.0-7.7 [facility] Comment on above: Performed By: #### L 500.2500, L100.0100 #### [facility] [address] [place], [address] Basophils/100 WBC (Bld) 0.5 % Normal 0-1 [facility] Comment on above: Performed By: #### L 500.2500, L100.0100 #### [facility] [address] [place], [address] Eosinophils/100 WBC (Bld) 1.3 % Normal 0-5 [facility] Comment on above: Performed By: #### L 500.2500, L100.0100 #### [facility] [address] [place], [address] Erythrocyte distribution width (RBC) [Ratio] 14.1 % Normal 11.6-14.6 [facility] Comment on above: Performed By: #### L 500.2500, L100.0100 #### [facility] [address] [place], [address] Hematocrit (Bld) [Volume fraction] 29.6 % Low 37-47 [facility] Comment on above: Performed By: #### L 500.2500, L100.0100 #### [facility] [address] [place], [address] Hemoglobin (Bld) [Mass/Vol] 9.6 g/dL Low 12.0-15.0 [facility] Comment on above: Performed By: #### L 500.2500, L100.0100 #### [facility] [address] [place], [address] IG% 0.300 Normal 0.0-0.9 [facility] Comment on above: Result Comment: IG% - Immature Granulocytes (promyelocytes, myelocytes and metamyelocytes) > 1% indicates that a LEFT SHIFT is Present. Performed By: #### L 500.2500, L100.0100 #### [facility] [address] [place], [address] Lymphocytes/100 WBC (Bld) 19.2 % Normal 19-41 [facility] Comment on above: Performed By: #### L 500.2500, L100.0100 #### [facility] [address] [place], [address] MCH (RBC) [Entitic mass] 29.5 pg Normal 27.0-32.0 [facility] Comment on above: Performed By: #### L 500.2500, L100.0100 #### [facility] [address] [place], [address] MCHC (RBC) [Mass/Vol] 32.4 g/dL Normal 32-36 [facility] Comment on above: Performed By: #### L 500.2500, L100.0100 #### [facility] [address] [place], [address] MCV (RBC) [Entitic vol] 91.1 fL Normal 81-99 [facility] Comment on above: Performed By: #### L 500.2500, L100.0100 #### [facility] [address] [place], [address] Monocytes/100 WBC (Bld) 9.3 % Normal 0-10 [facility] Comment on above: Performed By: #### L 500.2500, L100.0100 #### [facility] [address] [place], [address] Neutrophils/100 WBC (Bld) 69.4 % Normal 47-70 [facility] Comment on above: Performed By: #### L 500.2500, L100.0100 #### [facility] [address] [place], [address] Nucleated RBC (Bld) [#/Vol] 0 10*3/uL Normal 0-5 [facility] Comment on above: Performed By: #### L 500.2500, L100.0100 #### [facility] [address] [place], [address] Platelet mean volume (Bld) [Entitic vol] 9.8 fL Normal 6.2-12.0 [facility] Comment on above: Performed By: #### L 500.2500, L100.0100 #### [facility] [address] [place], [address] Platelets (Bld) [#/Vol] 218 10*3/uL Normal 150-450 [facility] Comment on above: Performed By: #### L 500.2500, L100.0100 #### [facility] [address] [place], [address] RBC (Bld) [#/Vol] 3.25 10*6/uL Low 4.2-5.4 [facility] Comment on above: Performed By: #### L 500.2500, L100.0100 #### [facility] [address] [place], [address] RDW SD 46.4 fl High 35.1-43.9 [facility] Comment on above: Performed By: #### L 500.2500, L100.0100 #### [facility] [address] [place], [address] WBC (Bld) [#/Vol] 7.6 10*3/uL Normal 4.4-11.0 [facility] Comment on above: Performed By: #### L 500.2500, L100.0100 #### [facility] [address] [place], [address] Cardiac Cath Diagnosticon Cardiac Cath Diagnostic [facility] Imaging Services [address] [place] [address] Cardiac Cath Diagnostic MR#: [id number] Acct: [id number] Name: LUCILLE THURMAN Rep #: [id number] : 1935 89 From: Jonah Bashir MD PCP: AMAURY Louise Status:ADM IN Patient Name: LUCILLE THURMAN Study Date: 10/06/2024 Performing: Jonah Bashir MD Ht: 62 inches 157.48 cm : 1935 Wt: 162.04 lbs 73.5 kg Age: 89 Gender: female BSA: 1.75 PROCEDURE(S) PERFORMED DC01-(51992)LHC/COR/LV CLINICAL PROFILE AND INDICATIONS Indications: ACS > 24 hrs Heart Failure: None CAD Presentations: Non-STEMI. Symptom onset Date/Time: 10/04/2024 Time Not Available CONCLUSIONS 50% Mid LAD, 50% Mid RCA LVEF 65% RECOMMENDATIONS Medical therapy Risk factor modification DESCRIPTION OF PROCEDURE The patient arrived to the procedure lab. The risks and benefits of the procedure as well as a full description of our services here and current unavailability of surgical backup were fully explained to the patient and/or their significant other prior to the catheterization. The Timeout was completed, verifying the correct patient and procedure. The patient's procedural site was prepped and draped in the usual fashion. Local anesthetic was given subcutaneously to right radial region with Lidocaine 2%. Using a modified Seldinger technique, arterial access was obtained via the right radial artery, a 6Fr sheath was inserted. Left Coronary Artery selective angiography was performed in multiple views using a 5 Fr. 4.0 Ney catheter. Right Coronary Artery selective angiography was then performed in multiple views using a 5 Fr. 4.0 Ney catheter. Left Ventriculography was performed in DAVID projection using a 5 Fr. Pigtail catheter. LV to AO pullback pressures were then recorded.The arterial sheath was pulled and a TR Band was applied for hemostasis CORONARY ANGIOGRAPHY DOMINANCE: Right Dominant LEFT HEART ASSESSMENT Left Ventricular Ejection Fraction: by LV Gram 65 % LVEDP: 18 mmHg LEFT MAIN: Tubular 50% Ostial lesion in LMCA Tubular 30% Ostial lesion in LMCA LEFT ANTERIOR DESCENDING ARTERY: LAD: Tubular Calcified 50% Mid lesion in LAD RIGHT CORONARY ARTERY: RCA: Tubular Calcified 50% Mid lesion in RCA COMPLICATIONS No Complications PROCEDURE MEDICATIONS Versed .5 mg IV Fentanyl 25 mcg IV Oxygen: 2 L/min via nasal cannula Heparin given IA 10/06/2024 12:10:20 Verapamil 2.5mg, Ntg 200mcgs, 2000 units of Heparin given IA 10/06/2024 12:10:20 SUMMARY OF HEMODYNAMIC DATA Time AIR REST ECG 11:55:40 AO 111/56 (79) SA 12:10:40 LV 160/1, 14 12:16:03 LV 162/2, 18 12:16:12 LV 143/11, 20 12:20:09 LVp 146/17, 28 12:20:24 AOp 144/57 (91) 12:20:31 12:32:43 Signed By Jonah Bashir MD On 10/06/2024 12:34:30 Jonah Bashir MD 10/06/24 1235 Date Jonah Bashir MD Cosigner Signature: Date (if indicated) CC: AMAURY Sandoval; Dr. Jonah Bashir MD; Dr. Tone Bethea MD Date Dictated: 10/06/24 1209 Date Transcribed: 10/06/24 1234 Foundry Superintendant: ANNALISA Georges [facility] Consultation - Cardiologyon 10-06-2024 Consultation - Cardiology [facility] Medical Records Department [address] [place] [id number] Consultation - Cardiology 10/06/24 0835 MR#: [id number] Acct: [id number] Name: LUCILLE THURMAN Rep #: [id number] : 1935 89 From: Jonah Bashir MD PCP: AMAURY Louise Status:ADM IN Location: [place] [address] Assessment Plan Assessment/Plan (1) NSTEMI (non-ST elevated myocardial infarction): PLAN: Presently asymptomatic. Normal LV systolic function on echocardiogram. Continue aspirin. Start on clopidogrel. Calcium channel blockers. Beta-blockers. Further course of action discussed in detail with the patient and her daughter. Coronary angiography with possible revascularization versus medical management discussed. Risks benefits explained. They understand these and wished to pursue noninvasive management strategy if possible. Agree with a Lexiscan stress Myoview. Further course of action in light of results of the stress test. (2) Acute diastolic (congestive) heart failure: PLAN: Furosemide. Start on SGLT2 inhibitors. Beta-blockers. (3) HTN (hypertension): PLAN: Beta-blockers, furosemide, calcium channel stalin. (4) Dyslipidemia: PLAN: Atorvastatin. (5) Type II diabetes mellitus: PLAN: As per internal medicine. HPI Consult Data Date of Consult: 10/06/24 HPI Narrative Reason for Consultation: NSTEMI HPI Narrative: This 89-year-old lady has past medical history significant for hypertension, diabetes mellitus and dyslipidemia. Presented to the hospital with complaints of acute onset dyspnea. According to her, she also had some anterior chest pressure with that. ECG was unremarkable. Her first troponin was within normal limits however serial troponins trend positive, ruling her in for NSTEMI. She has had an echocardiogram done yesterday. It showed normal left ventricular systolic function. Stage I diastolic dysfunction was noted. Since her admission to the hospital, patient has not had any further chest pains or shortness of breath. [facility] Medical History Anemia Diabetes Non-smoker Skin cancer Dehydration GERD (gastroesophageal reflux disease) Acute blood loss anemia Closed left hip fracture HTN (hypertension) Hypercholesteremia Type II diabetes mellitus Home Medications ???Medication ???Instructions ???Recorded ???Last Taken ???Type atorvastatin 80 mg tablet 80 mg PO QHS 08/25/13 Unknown History glimepiride 2 mg tablet 4 mg PO DAILY 08/25/13 02/08/15 07:00 History lisinopril 40 mg tablet 40 mg PO DAILY 08/25/13 02/14/16 05:00 History multivitamin with folic acid 400 1 tab PO DAILYCM #30 tabs 02/11/15 Unknown Rx mcg tablet amlodipine 5 mg tablet 5 mg PO DAILY 04/10/19 Unknown History Poglitasone 15 mg PO DAILY 05/23/19 Unknown History omeprazole 40 mg capsule,delayed 40 mg PO DAILY 05/23/19 Unknown History release blood sugar diagnostic (True 10/04/24 Unknown History Metrix Glucose Test Strip) Allergy/AdvReac Type Severity Reaction Status Date / Time metformin Allergy Hives Verified 05/23/19 08:24 morphine AdvReac Nausea Verified 05/23/19 08:24 oxycodone (Oxycodone) AdvReac Nausea Verified 05/23/19 08:24 Family History Sister Breast cancer Colon cancer Diabetes Uncle Heart disease Brother Kidney disease Surgical History History of appendectomy History of cholecystectomy History of hip replacement History of shoulder replacement S/P ORIF (open reduction internal fixation) fracture Social History household members: none current occupational status: retired Smoking Status: Never smoker alcohol intake: never substance use type: does not use Physical Exam Narrative Comfortable. No apparent distress. No JVD. Heart sounds 1 and 2 noted. Chest clear to auscultation bilaterally. Alert oriented x 3. Trace bilateral ankle edema noted. Risk Stratification Risk Stratification Applicable: No Objective Data Vital Signs: Vital Signs Temp Pulse Resp BP Pulse Ox O2 Del Method O2 Flow Rate 98.6 F 66 16 119/39 L 89 Room Air 2 10/06/24 03:30 10/06/24 03:30 10/06/24 03:30 10/06/24 03:30 10/06/24 03:30 10/06/24 04:32 10/06/24 03:30 FiO2 50 10/04/24 16:37 Oxygen Flow Rate (L/min) 2 Oxygen Delivery Method Room Air Weight: 162 lb 0.636 oz Body Mass Index (BMI) 29.6 Intake Output: Intake and Output for Last 24 Hours 10/04/24 10/05/24 10/06/24 23:59 23:59 23:59 Intake Total 480 / 480 705.35 / 705.35 315.77 / 315.77 Output Total 700 / 1560 1260 / 1260 Balance -220 / -1080 -554.65 / -554.65 315.77 / 315.77 Lab / Micro Data 10/06/24 03:03 (more content not included)... Normal [facility] D-Dimer Quantitative (DVT/PE )on 10-06-2024 D-DIMER QUANT 0.89 FEU/ug/m Invalid Interpretation Code 0.27-0.49 [facility] Comment on above: Order Comment: CRITI WESTON VALUE CALLED TO RADHA FIGUEROA10/06/24 0944 Miryam Allen.RESULTS READ BACK BY SAME. Result Comment: D-Di alvaro ELEVATED (>0.49): Additional studies and clinical assessments are indicated to conclude diagnosis of: Deep Vein Thrombosis (DVT) or Pulmonary Embolism (PE) Performed By: #### L 500.2500, L100.0100 #### [facility] [address] [place], [address] Lipid Profileon 10-06-2024 Cholesterol [Mass/Vol] 123 mg/dL Normal 200 [facility] Comment on above: Result Comment: <200 mg/dL Desirable 200-240 mg/dL Borderline >240 mg/dL High Risk Performed By: #### L 100.0100, L500.2500 #### [facility] [address] [place], [address] Cholesterol in HDL [Mass/Vol] 47 mg/dL Normal [facility] Comment on above: Result Comment: The drugs N-Acetylcysteine and Metamizole may falsely depress this assay. Reference Range HDL <40 mg/dL Low HDL Cholesterol HDL >or= 60 mg/dL High HDL Cholesterol Performed By: #### L 100.0100, L500.2500 #### [facility] [address] [place], [address] Cholesterol in LDL [Mass/Vol] 60 mg/dL Normal 0-130 [facility] Comment on above: Performed By: #### L 100.0100, L500.2500 #### [facility] [address] [place], [address] Cholesterol in VLDL [Mass/Vol] 16 mg/dL Normal 5-40 [facility] Comment on above: Performed By: #### L 100.0100, L500.2500 #### [facility] [address] [place], [address] Triglyceride [Mass/Vol] 79 mg/dL Normal [facility] Comment on above: Result Comment: The drugs N-Acetylcysteine and Metamizole may falsely depress this assay. Serum Triglycerides Reference Interval Normal <150 mg/dL Borderline high 150 - 199 mg/dL High 200 - 499 mg/dL Very High > or = 500 mg/dL Performed By: #### L 100.0100, L500.2500 #### [facility] [address] [place], [place], [address] Partial Thromboplast Timeon 10-06-2024 aPTT Coag (Bld) [Time] 59.4 s High 24.1-36.2 [facility] Comment on above: Performed By: #### L 100.0100, L500.2500 #### [facility] [address] [place], [place], [address] aPTT Coag (Bld) [Time] 58.2 s High 24.1-36.2 [facility] Comment on above: Order Comment: Comme nts: for heparin gtt Performed By: #### L 300.4310 #### [facility] [address] [facility] [place], [place], [address] Stress Reporton 10-06-2024 Stress Report [facility] Cardi[facility] Services [address] [place] [address] MR#: [id number] Acct: [id number] Name: LUCILLE THURMAN Rep #: [id number] : 1935 89 From: Jonah Bashir MD Primary Care: AMAURY Louise Status: ADM IN Referring Dr: Sex: F C Stress Test Report Date: 10/06/2024 Procedure: Pharmacologic stress nuclear imaging study Indications: NSTEMI Consent: Per the patient Procedure: The patient underwent pharmacologic (Regadenoson 0.4mg ) evaluation with a peak heart rate of 90 beats per minute (68%predicted maximal heart rate) and a peak blood pressure of 132/58 mmHg. The baseline ECG demonstrated sinus rhythm with changes consistent with anterolateral ischemia. The peak pharmacologic ECG was nondiagnostic secondary to baseline abnormality. There were no cardiac dysrhythmias pretest, during pharmacologic infusion, or recovery. There was no complaint of chest discomfort during pharmacologic infusion or recovery. The patient was injected with 11.3 millicuries of technetium 99m Cardiolite and subsequently rest SPECT Cardiolite nuclear imaging was obtained in the horizontal long, vertical long, and short axis views. The patient underwent pharmacologic (Regadenoson) evaluation. The patient was injected with 34.5 millicuries of technetium 99m Cardiolite and subsequently stress SPECT Cardiolite nuclear imaging was obtained in the horizontal long, vertical long, and short axis views. A gated Cardiolite study at peak stress was obtained. The examination was stopped secondary to completion of protocol. Rest and stress SPECT Cardiolite nuclear imaging status post realignment, normalization, and attenuation correction demonstrate mildly reduced perfusion of the anterior wall and apex post pharmacological stress, suggestive of ischemia. There is end systolic thickening and brightening. The gated Cardiolite study demonstrates myocardial thickening and inward wall motion. The reported LVEF is 50%. Impression: 1. Pharmacologic (Regadenoson) evaluation 2. Peak pharmacologic ECG nondiagnostic. 3. There were no cardiac dysrhythmias pretest, during pharmacologic infusion, or recovery. 5. Mildly reduced perfusion of the anterior wall and apex post pharmacological stress, suggestive of ischemia. 6. The gated Cardiolite study reports an LVEF of 50%. This note was generated with Boutiration software. It may contain incorrect words, spelling, and punctuation that were not noted in checking the note before signing. 10/06/24 1112 Date Jonah Bashir MD CC: AMAURY Sandoval; Dr. Julio Pickens MD; Dr. Jenifer Valente DO; Dr. Tone Bethea MD Date Dictated: 10/06/24 1110 Date Transcribed: 10/06/24 111 Foundry Superintendant: ANNALISA Signed Normal [facility] Venous Duplex US - Satya Extre mon 10-06-2024 Venous Duplex US - Satya Extrem [facility] [address] [place] [address] Venous Duplex US - Satya Extrem 10/06/24 1340 MR#: [id number] Acct: [id number] Name: LUCILLE THURMAN Rep #: [id number] : 1935 89 From: Tan Harris MD Attending Dr: Dr. Tone Bethea MD Status: ADM IN Ordering Dr: Tone Bethea MD Date: 10/06/24 Location: [facility] Sex: F C Admitted: 10/04/24 Reason For Study: Elevated D Dimer RIGHT LEFT GSV is normal. GSV is normal. CFV is compressible, spontaneous, phasic, CFV is compressible, spontaneous, phasic, competent and demonstrates normal competent, and demonstrates normal augmentation. augmentation. FV is compressible, spontaneous, phasic, FV is compressible, spontaneous, phasic, competent and demonstrates normal competent and demonstrates normal augmentation. augmentation. POP V is compressible, spontaneous, phasic, POP V is compressible, spontaneous, phasic, competent and demonstrates normal competent and demonstrates normal augmentation. augmentation. T/P Trunk is compressible. T/P Trunk is compressible. PTV is compressible. PTV is compressible. RT PerV is compressible. LT PerV is compressible. Procedure Exam performed portable in patient room. This is a venous duplex using B-mode, color flow and spectral Doppler. The exam was diagnostic. A preliminary report was called and/or faxed to Dr. Bethea. VL/Venous Duplex US - Satya Extrem Interpretation Summary Deep veins of the lower extremities are bilaterally patent and compressible segmentally. There is no evidence of deep vein thrombosis on either side. Valvular competence appears intact within the proximal deep venous systems bilaterally. The great saphenous veins appear bilaterally patent and compressible segmentally. Ordering Physician: Tone Bethea Referring Physician: Treva Sandoval Performed By: Silvio Reynaga, T 10/06/24 9643 Date Tan Harris MD CC: AMAURY Sandoval; Dr. Tone Bethea MD Date Dictated: 10/06/24 1340 Date Transcribed: 10/06/24 0452 Foundry Superintendant: Signed Normal [facility] Basic Metabolic Profile (BMP )on 10-05-2024 BUN Normal 7-18 [facility] Comment on above: Result Comment: OVER LAPPING- CMP ORDERED FOR MORNING RUN Performed By: #### L 100.0100, L500.2500 #### [facility] [address] [place], [address] BUN/CRE Normal 10-20 [facility] Comment on above: Result Comment: OVER LAPPING- CMP ORDERED FOR MORNING RUN Performed By: #### L 100.0100, L500.2500 #### [facility] [address] [place], [address] CA,Total Normal 8.5-10.1 [facility] Comment on above: Result Comment: OVER LAPPING- CMP ORDERED FOR MORNING RUN Performed By: #### L 100.0100, L500.2500 #### [facility] [address] [place], [address] CL Normal 98-107 [facility] Comment on above: Result Comment: OVER LAPPING- CMP ORDERED FOR MORNING RUN Performed By: #### L 100.0100, L500.2500 #### [facility] [address] [place], [address] CO2 Normal 21.0-32.0 [facility] Comment on above: Result Comment: OVER LAPPING- CMP ORDERED FOR MORNING RUN Performed By: #### L 100.0100, L500.2500 #### [facility] [address] [place], [address] CREAT,SERUM Normal 0.55-1.02 [facility] Comment on above: Result Comment: OVER LAPPING- CMP ORDERED FOR MORNING RUN Performed By: #### L 100.0100, L500.2500 #### [facility] [address] [place], [address] EST GFR Normal >60 [facility] Comment on above: Result Comment: OVER LAPPING- CMP ORDERED FOR MORNING RUN Performed By: #### L 100.0100, L500.2500 #### [facility] [address] [place], [address] EST GFR - AA Normal >60 [facility] Comment on above: Result Comment: OVER LAPPING- CMP ORDERED FOR MORNING RUN Performed By: #### L 100.0100, L500.2500 #### [facility] [address] [place], [address] GAP Normal 5-15 [facility] Comment on above: Result Comment: OVER LAPPING- CMP ORDERED FOR MORNING RUN Performed By: #### L 100.0100, L500.2500 #### [facility] [address] [place], [address] GLU Normal 74-106 [facility] Comment on above: Result Comment: OVER LAPPING- CMP ORDERED FOR MORNING RUN Performed By: #### L 100.0100, L500.2500 #### [facility] [address] [place], [address] Potassium Normal 3.5-5.1 [facility] Comment on above: Result Comment: OVER LAPPING- CMP ORDERED FOR MORNING RUN Performed By: #### L 100.0100, L500.2500 #### [facility] [address] [place], [address] Basic Metabolic Profile (BMP) Normal 136-145 [facility] Comment on above: Result Comment: OVER LAPPING- CMP ORDERED FOR MORNING RUN Performed By: #### L 100.0100, L500.2500 #### [facility] [address] [place], [address] Bedside Glucoseon 10-05-2024 FINGERSTICK GLU 171 mg/dL High 74-106 [facility] Comment on above: Result Comment: LOAN GEMENT OF PATIENT CARE PER NURSING PROTOCOL Performed By: #### L 100.0100, L500.2500 #### [facility] [address] [place], [address] FINGERSTICK GLU 158 mg/dL High 74-106 [facility] Comment on above: Result Comment: LOAN GEMENT OF PATIENT CARE PER NURSING PROTOCOL Performed By: #### L 500.2500, L100.0100 #### [facility] [address] [place], [address] FINGERSTICK GLU 102 mg/dL Normal 74-106 [facility] Comment on above: Result Comment: LOAN GEMENT OF PATIENT CARE PER NURSING PROTOCOL Performed By: #### L 100.0100, L500.2500 #### [facility] [address] [place], [address] CBC W/Diff, Automatedon 09-20 Absolute Lymph 1.49 X10 3/uL Normal 0.83-4.51 [facility] Comment on above: Performed By: #### L 501.080 #### [facility] [address] [place], [address] Absolute Neut 6.9 X10 3/uL Normal 2.0-7.7 [facility] Comment on above: Performed By: #### L 501.080 #### [facility] [address] [place], [address] Basophils/100 WBC (Bld) 0.4 % Normal 0-1 [facility] Comment on above: Performed By: #### L 501.080 #### [facility] [address] [place], [address] Eosinophils/100 WBC (Bld) 0.6 % Normal 0-5 [facility] Comment on above: Performed By: #### L 501.080 #### [facility] [address] [place], [address] Erythrocyte distribution width (RBC) [Ratio] 14.1 % Normal 11.6-14.6 [facility] Comment on above: Performed By: #### L 501.080 #### [facility] [address] [place], [address] Hematocrit (Bld) [Volume fraction] 29.1 % Low 37-47 [facility] Comment on above: Performed By: #### L 501.080 #### [facility] [address] [place], [address] Hemoglobin (Bld) [Mass/Vol] 9.5 g/dL Low 12.0-15.0 [facility] Comment on above: Performed By: #### L 501.080 #### [facility] [address] [place], [address] IG% 0.300 Normal 0.0-0.9 [facility] Comment on above: Result Comment: IG% - Immature Granulocytes (promyelocytes, myelocytes and metamyelocytes) > 1% indicates that a LEFT SHIFT is Present. Performed By: #### L 501.080 #### [facility] [address] [place], [address] Lymphocytes/100 WBC (Bld) 15.8 % Low 19-41 [facility] Comment on above: Performed By: #### L 501.080 #### [facility] [address] [place], [address] MCH (RBC) [Entitic mass] 29.6 pg Normal 27.0-32.0 [facility] Comment on above: Performed By: #### L 501.080 #### [facility] [address] [place], [address] MCHC (RBC) [Mass/Vol] 32.6 g/dL Normal 32-36 [facility] Comment on above: Performed By: #### L 501.080 #### [facility] [address] [place], [address] MCV (RBC) [Entitic vol] 90.7 fL Normal 81-99 [facility] Comment on above: Performed By: #### L 501.080 #### [facility] [address] [place], [address] Monocytes/100 WBC (Bld) 9.4 % Normal 0-10 [facility] Comment on above: Performed By: #### L 501.080 #### [facility] [address] [place], [address] Neutrophils/100 WBC (Bld) 73.5 % High 47-70 [facility] Comment on above: Performed By: #### L 501.080 #### [facility] [address] [place], [address] Nucleated RBC (Bld) [#/Vol] 0 10*3/uL Normal 0-5 [facility] Comment on above: Performed By: #### L 501.080 #### [facility] [address] [place], [address] Platelet mean volume (Bld) [Entitic vol] 9.4 fL Normal 6.2-12.0 [facility] Comment on above: Performed By: #### L 501.080 #### [facility] [address] [place], [address] Platelets (Bld) [#/Vol] 213 10*3/uL Normal 150-450 [facility] Comment on above: Performed By: #### L 501.080 #### [facility] [address] [place], [address] RBC (Bld) [#/Vol] 3.21 10*6/uL Low 4.2-5.4 [facility] Comment on above: Performed By: #### L 501.080 #### [facility] [address] [place], [address] RDW SD 46.2 fl High 35.1-43.9 [facility] Comment on above: Performed By: #### L 501.080 #### [facility] [address] [place], [address] WBC (Bld) [#/Vol] 9.4 10*3/uL Normal 4.4-11.0 [facility] Comment on above: Performed By: #### L 501.080 #### [facility] [address] [place], [address] Comprehensive Metabolic Prof ilon 10-05-2024 Albumin [Mass/Vol] 3.1 g/dL Low 3.2-5.0 [facility] Comment on above: Performed By: #### L 501.080 #### [facility] [address] [place], [address] Albumin/Globulin [Mass ratio] 0.9 {ratio} Normal 0.9-2.4 [facility] Comment on above: Performed By: #### L 501.080 #### [facility] [address] [place], [address] ALK P 79 U/L Normal 45-117 [facility] Comment on above: Performed By: #### L 501.080 #### [facility] [address] [place], [address] ALT [Catalytic activity/Vol] 45 U/L Normal 13-56 [facility] Comment on above: Performed By: #### L 501.080 #### [facility] [address] [place], [address] AST [Catalytic activity/Vol] 34 U/L Normal 15-37 [facility] Comment on above: Performed By: #### L 501.080 #### [facility] [address] [place], [address] Bilirubin [Mass/Vol] 0.90 mg/dL Normal 0.20-1.00 [facility] Comment on above: Result Comment: For patients on eltrombopag therapy, use of Dimension [place] TBIL is not recommended. Performed By: #### L 501.080 #### [facility] [address] [place], [address] BUN/CRE 26.9 RATIO High 10-20 [facility] Comment on above: Performed By: #### L 501.080 #### [facility] [address] [place], [address] CA,Total 8.9 mg/dL Normal 8.5-10.1 [facility] Comment on above: Performed By: #### L 501.080 #### [facility] [address] [place], [address] Chloride [Moles/Vol] 106 mmol/L Normal 98-107 [facility] Comment on above: Performed By: #### L 501.080 #### [facility] [address] [place], [address] CO2 [Moles/Vol] 25.0 mmol/L Normal 21.0-32.0 [facility] Comment on above: Performed By: #### L 501.080 #### [facility] [address] [place], [address] Creatinine [Mass/Vol] 1.34 mg/dL High 0.55-1.02 [facility] Comment on above: Result Comment: The validity of the calculated GFR GFRAA in patients over 70 years has not been determined. Clinical correlation is essential. Performed By: #### L 501.080 #### [facility] [address] [place], [address] ECRCL 26.72 ml/min Normal [facility] Comment on above: Performed By: #### L 501.080 #### [facility] [address] [place], [address] EST GFR - AA 48 mL/min Low >60 [facility] Comment on above: Result Comment: Afri can Tanzanian GFR Calc Performed By: #### L 501.080 #### [facility] [address] [place], [address] GAP 7 Normal 5-15 [facility] Comment on above: Performed By: #### L 501.080 #### [facility] [address] [place], [address] GFR/1.73 sq M.predicted among non-blacks MDRD (S/P/Bld) [Vol rate/Area] 40 mL/min/{1.73_m2} Low >60 [facility] Comment on above: Result Comment: Non- GFR Calc Performed By: #### L 501.080 #### [facility] [address] [place], [address] Globulin (S) [Mass/Vol] 3.4 g/dL Normal 2.2-4.2 [facility] Comment on above: Performed By: #### L 501.080 #### [facility] [address] [place], [address] Glucose [Mass/Vol] 109 mg/dL High 74-106 [facility] Comment on above: Result Comment: Fast ing Glucose result from 100 to 125 mg/dL suggests IMPAIRED HOMEOSTASIS per A.D.A. criteria. Performed By: #### L 501.080 #### [facility] [address] [place], [address] Potassium [Moles/Vol] 3.6 mmol/L Normal 3.5-5.1 [facility] Comment on above: Performed By: #### L 501.080 #### [facility] [address] [place], [address] Sodium [Moles/Vol] 138 mmol/L Normal 136-145 [facility] Comment on above: Performed By: #### L 501.080 #### [facility] [address] [place], [address] T PROT 6.5 g/dL Normal 6.4-8.2 [facility] Comment on above: Performed By: #### L 501.080 #### [facility] [address] [place], [address] Urea nitrogen [Mass/Vol] 36 mg/dL High 7-18 [facility] Comment on above: Performed By: #### L 501.080 #### [facility] [address] [place], [address] Magnesiumon 10-05-2024 Magnesium [Mass/Vol] 1.9 mg/dL Normal 1.6-2.6 [facility] Comment on above: Performed By: #### L 501.080 #### [facility] [address] [place], [address] Partial Thromboplast Timeon 10-05-2024 aPTT Coag (Bld) [Time] 60.5 s High 24.1-36.2 [facility] Comment on above: Performed By: #### L 100.0100, L500.2500 #### [facility] [address] [place], [address] aPTT Coag (Bld) [Time] 58.6 s High 24.1-36.2 [facility] Comment on above: Order Comment: Comme nts: heparin gtt Performed By: #### L 500.2500, L100.0100 #### [facility] [address] [place], [address] aPTT Coag (Bld) [Time] 206.1 s Invalid Interpretation Code 24.1-36.2 [facility] Comment on above: Order Comment: Comme nts: heparin gtt Result Comment: CRIT ICAL VALUE CALLED TO SUSAN SIMON 10/05/24 [facility]. RESULTS READ BACK BY SAME. Performed By: #### L 501.080 #### [facility] [address] [place], [address] Phosphoruson 10-05-2024 Phosphate [Mass/Vol] 3.6 mg/dL Normal 2.5-4.9 [facility] Comment on above: Performed By: #### L 501.080 #### [facility] [address] [place], [address] Thyroid Stim Hormone (TSH)on 10-05-2024 TSH 1.050 uIU/mL Normal 0.358-3.740 [facility] Comment on above: Performed By: #### L 501.080 #### [facility] [address] [place], [address] BNP,B-Type NATRIURETIC PEPTI Eugenia 10-04-2024 Natriuretic peptide B (Bld) [Mass/Vol] 496.4 pg/mL High 0-100 [facility] Comment on above: Performed By: #### L 500.2500, L100.0100 #### [facility] [address] [place], [address] Basic Metabolic Profile (BMP )on 10-04-2024 BUN/CRE 24.6 RATIO High 10-20 [facility] Comment on above: Order Comment: Comme nts: SPECIMEN #3 'TROP' Serial specimen #1, #2 or #3: 3 Performed By: #### L 501.4020, L500.2500 #### [facility] [address] [place], [address] CA,Total 9.0 mg/dL Normal 8.5-10.1 [facility] Comment on above: Order Comment: Comme nts: SPECIMEN #3 'TROP' Serial specimen #1, #2 or #3: 3 Performed By: #### L 501.4020, L500.2500 #### [facility] [address] [place], [address] Chloride [Moles/Vol] 108 mmol/L High 98-107 [facility] Comment on above: Order Comment: Comme nts: SPECIMEN #3 'TROP' Serial specimen #1, #2 or #3: 3 Performed By: #### L 501.4020, L500.2500 #### [facility] [address] [place], [address] CO2 [Moles/Vol] 24.0 mmol/L Normal 21.0-32.0 [facility] Comment on above: Order Comment: Comme nts: SPECIMEN #3 'TROP' Serial specimen #1, #2 or #3: 3 Performed By: #### L 501.4020, L500.2500 #### [facility] [address] [place], [address] Creatinine [Mass/Vol] 1.34 mg/dL High 0.55-1.02 [facility] Comment on above: Order Comment: Comme nts: SPECIMEN #3 'TROP' Serial specimen #1, #2 or #3: 3 Result Comment: The validity of the calculated GFR GFRAA in patients over 70 years has not been determined. Clinical correlation is essential. Performed By: #### L 501.4020, L500.2500 #### [facility] [address] [place], [address] ECRCL 26.72 ml/min Normal [facility] Comment on above: Order Comment: Comme nts: SPECIMEN #3 'TROP' Serial specimen #1, #2 or #3: 3 Performed By: #### L 501.4020, L500.2500 #### [facility] [address] [place], [address] EST GFR - AA 48 mL/min Low >60 [facility] Comment on above: Order Comment: Comme nts: SPECIMEN #3 'TROP' Serial specimen #1, #2 or #3: 3 Result Comment: Afri can Tanzanian GFR Calc Performed By: #### L 501.4020, L500.2500 #### [facility] [address] [place], [address] GAP 7 Normal 5-15 [facility] Comment on above: Order Comment: Comme nts: SPECIMEN #3 'TROP' Serial specimen #1, #2 or #3: 3 Performed By: #### L 501.4020, L500.2500 #### [facility] [address] [place], [address] GFR/1.73 sq M.predicted among non-blacks MDRD (S/P/Bld) [Vol rate/Area] 40 mL/min/{1.73_m2} Low >60 [facility] Comment on above: Order Comment: Comme nts: SPECIMEN #3 'TROP' Serial specimen #1, #2 or #3: 3 Result Comment: Non- GFR Calc Performed By: #### L 501.4020, L500.2500 #### [facility] [address] [place], [address] Glucose [Mass/Vol] 151 mg/dL High 74-106 [facility] Comment on above: Order Comment: Comme nts: SPECIMEN #3 'TROP' Serial specimen #1, #2 or #3: 3 Result Comment: Fast ing Glucose result greater than or equal to 126 mg/dL suggests DIABETES MELLITUS per A.D.A. criteria. Performed By: #### L 501.4020, L500.2500 #### [facility] [address] [place], [address] Potassium [Moles/Vol] 4.0 mmol/L Normal 3.5-5.1 [facility] Comment on above: Order Comment: Comme nts: SPECIMEN #3 'TROP' Serial specimen #1, #2 or #3: 3 Performed By: #### L 501.4020, L500.2500 #### [facility] [address] [place], [address] Sodium [Moles/Vol] 139 mmol/L Normal 136-145 [facility] Comment on above: Order Comment: Comme nts: SPECIMEN #3 'TROP' Serial specimen #1, #2 or #3: 3 Performed By: #### L 501.4020, L500.2500 #### [facility] [address] [place], [address] Urea nitrogen [Mass/Vol] 33 mg/dL High 7-18 [facility] Comment on above: Order Comment: Comme nts: SPECIMEN #3 'TROP' Serial specimen #1, #2 or #3: 3 Performed By: #### L 501.4020, L500.2500 #### [facility] [address] [place], [address] BUN/CRE 25.4 RATIO High 10-20 [facility] Comment on above: Order Comment: Comme nts: SPECIMEN #2'TROP' Serial specimen #1, #2 or #3: 2 Performed By: #### L 100.0100, L500.2500 #### [facility] [address] [place], [address] CA,Total 9.4 mg/dL Normal 8.5-10.1 [facility] Comment on above: Order Comment: Comme nts: SPECIMEN #2'TROP' Serial specimen #1, #2 or #3: 2 Performed By: #### L 100.0100, L500.2500 #### [facility] [address] [place], [address] Chloride [Moles/Vol] 108 mmol/L High 98-107 [facility] Comment on above: Order Comment: Comme nts: SPECIMEN #2'TROP' Serial specimen #1, #2 or #3: 2 Performed By: #### L 100.0100, L500.2500 #### [facility] [address] [place], [address] CO2 [Moles/Vol] 24.0 mmol/L Normal 21.0-32.0 [facility] Comment on above: Order Comment: Comme nts: SPECIMEN #2'TROP' Serial specimen #1, #2 or #3: 2 Performed By: #### L 100.0100, L500.2500 #### [facility] [address] [place], [address] Creatinine [Mass/Vol] 1.22 mg/dL High 0.55-1.02 [facility] Comment on above: Order Comment: Comme nts: SPECIMEN #2'TROP' Serial specimen #1, #2 or #3: 2 Result Comment: The validity of the calculated GFR GFRAA in patients over 70 years has not been determined. Clinical correlation is essential. Performed By: #### L 100.0100, L500.2500 #### [facility] [address] [place], [address] ECRCL 29.34 ml/min Normal [facility] Comment on above: Order Comment: Comme nts: SPECIMEN #2'TROP' Serial specimen #1, #2 or #3: 2 Performed By: #### L 100.0100, L500.2500 #### [facility] [address] [place], [address] EST GFR - AA 53 mL/min Low >60 [facility] Comment on above: Order Comment: Comme nts: SPECIMEN #2'TROP' Serial specimen #1, #2 or #3: 2 Result Comment: Afri can Tanzanian GFR Calc Performed By: #### L 100.0100, L500.2500 #### [facility] [address] [place], [address] GAP 7 Normal 5-15 [facility] Comment on above: Order Comment: Comme nts: SPECIMEN #2'TROP' Serial specimen #1, #2 or #3: 2 Performed By: #### L 100.0100, L500.2500 #### [facility] [address] [place], [address] GFR/1.73 sq M.predicted among non-blacks MDRD (S/P/Bld) [Vol rate/Area] 44 mL/min/{1.73_m2} Low >60 [facility] Comment on above: Order Comment: Comme nts: SPECIMEN #2'TROP' Serial specimen #1, #2 or #3: 2 Result Comment: Non- GFR Calc Performed By: #### L 100.0100, L500.2500 #### [facility] [address] [place], [address] Glucose [Mass/Vol] 175 mg/dL High 74-106 [facility] Comment on above: Order Comment: Comme nts: SPECIMEN #2'TROP' Serial specimen #1, #2 or #3: 2 Result Comment: Fast ing Glucose result greater than or equal to 126 mg/dL suggests DIABETES MELLITUS per A.D.A. criteria. Performed By: #### L 100.0100, L500.2500 #### [facility] [address] [place], [address] Potassium [Moles/Vol] 4.1 mmol/L Normal 3.5-5.1 [facility] Comment on above: Order Comment: Comme nts: SPECIMEN #2'TROP' Serial specimen #1, #2 or #3: 2 Performed By: #### L 100.0100, L500.2500 #### [facility] [address] [place], [address] Sodium [Moles/Vol] 139 mmol/L Normal 136-145 [facility] Comment on above: Order Comment: Comme nts: SPECIMEN #2'TROP' Serial specimen #1, #2 or #3: 2 Performed By: #### L 100.0100, L500.2500 #### [facility] [address] [place], [address] Urea nitrogen [Mass/Vol] 31 mg/dL High 7-18 [facility] Comment on above: Order Comment: Comme nts: SPECIMEN #2'TROP' Serial specimen #1, #2 or #3: 2 Performed By: #### L 100.0100, L500.2500 #### [facility] [address] [place], [address] BUN/CRE 24.0 RATIO High 10-20 [facility] Comment on above: Performed By: #### L 501.080 #### [facility] [address] [place], [address] CA,Total 9.9 mg/dL Normal 8.5-10.1 [facility] Comment on above: Performed By: #### L 501.080 #### [facility] [address] [place], [address] Chloride [Moles/Vol] 110 mmol/L High 98-107 [facility] Comment on above: Performed By: #### L 501.080 #### [facility] [address] [place], [address] CO2 [Moles/Vol] 24.0 mmol/L Normal 21.0-32.0 [facility] Comment on above: Performed By: #### L 501.080 #### [facility] [address] [place], [address] Creatinine [Mass/Vol] 1.21 mg/dL High 0.55-1.02 [facility] Comment on above: Result Comment: The validity of the calculated GFR GFRAA in patients over 70 years has not been determined. Clinical correlation is essential. Performed By: #### L 501.080 #### [facility] [address] [place], [address] ECRCL 30.42 ml/min Normal [facility] Comment on above: Performed By: #### L 501.080 #### [facility] [address] [place], [address] EST GFR - AA 54 mL/min Low >60 [facility] Comment on above: Result Comment: Afri can Tanzanian GFR Calc Performed By: #### L 501.080 #### [facility] [address] [place], [address] GAP 5 Normal 5-15 [facility] Comment on above: Performed By: #### L 501.080 #### [facility] [address] [place], [address] GFR/1.73 sq M.predicted among non-blacks MDRD (S/P/Bld) [Vol rate/Area] 45 mL/min/{1.73_m2} Low >60 [facility] Comment on above: Result Comment: Non- GFR Calc Performed By: #### L 501.080 #### [facility] [address] [place], [address] Glucose [Mass/Vol] 143 mg/dL High 74-106 [facility] Comment on above: Result Comment: Fast ing Glucose result greater than or equal to 126 mg/dL suggests DIABETES MELLITUS per A.D.A. criteria. Performed By: #### L 501.080 #### [facility] [address] [place], [address] Potassium [Moles/Vol] 4.4 mmol/L Normal 3.5-5.1 [facility] Comment on above: Performed By: #### L 501.080 #### [facility] [address] [place], [address] Sodium [Moles/Vol] 139 mmol/L Normal 136-145 [facility] Comment on above: Performed By: #### L 501.080 #### [facility] [address] [place], [address] Urea nitrogen [Mass/Vol] 29 mg/dL High 7-18 [facility] Comment on above: Performed By: #### L 501.080 #### [facility] [address] [place], [address] BUN/CRE 24.0 RATIO High 10-20 [facility] Comment on above: Order Comment: 'TROP ' Serial specimen #1, #2 or #3: 1 Performed By: #### L 500.2500, L100.0100 #### [facility] [address] [place], [address] CA,Total 9.7 mg/dL Normal 8.5-10.1 [facility] Comment on above: Order Comment: 'TROP ' Serial specimen #1, #2 or #3: 1 Performed By: #### L 500.2500, L100.0100 #### [facility] [address] [place], [address] Chloride [Moles/Vol] 110 mmol/L High 98-107 [facility] Comment on above: Order Comment: 'TROP ' Serial specimen #1, #2 or #3: 1 Performed By: #### L 500.2500, L100.0100 #### [facility] [address] [place], [address] CO2 [Moles/Vol] 26.0 mmol/L Normal 21.0-32.0 [facility] Comment on above: Order Comment: 'TROP ' Serial specimen #1, #2 or #3: 1 Performed By: #### L 500.2500, L100.0100 #### [facility] [address] [place], [address] Creatinine [Mass/Vol] 1.21 mg/dL High 0.55-1.02 [facility] Comment on above: Order Comment: 'TROP ' Serial specimen #1, #2 or #3: 1 Result Comment: The validity of the calculated GFR GFRAA in patients over 70 years has not been determined. Clinical correlation is essential. Performed By: #### L 500.2500, L100.0100 #### [facility] [address] [place], [address] ECRCL 30.42 ml/min Normal [facility] Comment on above: Order Comment: 'TROP ' Serial specimen #1, #2 or #3: 1 Performed By: #### L 500.2500, L100.0100 #### [facility] [address] [place], [address] EST GFR - AA 54 mL/min Low >60 [facility] Comment on above: Order Comment: 'TROP ' Serial specimen #1, #2 or #3: 1 Result Comment: Afri can Tanzanian GFR Calc Performed By: #### L 500.2500, L100.0100 #### [facility] [address] [place], [address] GAP 4 Low 5-15 [facility] Comment on above: Order Comment: 'TROP ' Serial specimen #1, #2 or #3: 1 Performed By: #### L 500.2500, L100.0100 #### [facility] [address] [place], [address] GFR/1.73 sq M.predicted among non-blacks MDRD (S/P/Bld) [Vol rate/Area] 45 mL/min/{1.73_m2} Low >60 [facility] Comment on above: Order Comment: 'TROP ' Serial specimen #1, #2 or #3: 1 Result Comment: Non- GFR Calc Performed By: #### L 500.2500, L100.0100 #### [facility] [address] [place], [address] Glucose [Mass/Vol] 138 mg/dL High 74-106 [facility] Comment on above: Order Comment: 'TROP ' Serial specimen #1, #2 or #3: 1 Result Comment: Fast ing Glucose result greater than or equal to 126 mg/dL suggests DIABETES MELLITUS per A.D.A. criteria. Performed By: #### L 500.2500, L100.0100 #### [facility] [address] [place], [address] Potassium [Moles/Vol] 4.4 mmol/L Normal 3.5-5.1 [facility] Comment on above: Order Comment: 'TROP ' Serial specimen #1, #2 or #3: 1 Performed By: #### L 500.2500, L100.0100 #### [facility] [address] [place], [address] Sodium [Moles/Vol] 140 mmol/L Normal 136-145 [facility] Comment on above: Order Comment: 'TROP ' Serial specimen #1, #2 or #3: 1 Performed By: #### L 500.2500, L100.0100 #### [facility] [address] [place], [address] Urea nitrogen [Mass/Vol] 29 mg/dL High 7-18 [facility] Comment on above: Order Comment: 'TROP ' Serial specimen #1, #2 or #3: 1 Performed By: #### L 500.2500, L100.0100 #### [facility] [address] [place], [address] Bedside Glucoseon 10-04-2024 FINGERSTICK GLU 146 mg/dL High 74-106 [facility] Comment on above: Result Comment: LOAN GEMENT OF PATIENT CARE PER NURSING PROTOCOL Performed By: #### L 100.0100, L500.2500 #### [facility] [address] [place], [address] FINGERSTICK GLU 151 mg/dL High 74-106 [facility] Comment on above: Result Comment: LOAN GEMENT OF PATIENT CARE PER NURSING PROTOCOL Performed By: #### L 501.080 #### [facility] [address] [place], [address] Blood Gases by CPSon 025 KAZ TEST Positive Normal [facility] Comment on above: Performed By: #### L 100.0100, L500.2500 #### [facility] [address] [place], [address] Base excess Calc (Bld) [Moles/Vol] -2 mmol/L Normal -2 to +2 [facility] Comment on above: Performed By: #### L 100.0100, L500.2500 #### [facility] [address] [place], [address] Blood Gas Type ART Normal [facility] Comment on above: Performed By: #### L 100.0100, L500.2500 #### [facility] [address] [place], [address] CO2 [Moles/Vol] 23 mmol/L Normal [facility] Comment on above: Performed By: #### L 100.0100, L500.2500 #### [facility] [address] [place], [address] Comment 14 6 Normal [facility] Comment on above: Performed By: #### L 100.0100, L500.2500 #### [facility] [address] [place], [address] FI02 50.0 [facility] Comment on above: Performed By: #### L 100.0100, L500.2500 #### [facility] [address] [place], [address] HCO3 (Bld) [Moles/Vol] 22.2 mmol/L Normal 22-26 [facility] Comment on above: Performed By: #### L 100.0100, L500.2500 #### [facility] [address] [place], [address] Mode Not entered [facility] Comment on above: Performed By: #### L 100.0100, L500.2500 #### [facility] [address] [place], [address] O2 Delivery Dev BiPAP [facility] Comment on above: Performed By: #### L 100.0100, L500.2500 #### [facility] [address] [place], [address] pCO2 34.7 mmHg Low 35-45 [facility] Comment on above: Performed By: #### L 100.0100, L500.2500 #### [facility] [address] [place], [address] pH (Bld) 7.41 [pH] Normal 7.35-7.45 [facility] Comment on above: Performed By: #### L 100.0100, L500.2500 #### [facility] [address] [place], [address] PO2 105 mmHG High 75-100 [facility] Comment on above: Performed By: #### L 100.0100, L500.2500 #### [facility] [address] [place], [address] SITE R Radial Normal [facility] Comment on above: Performed By: #### L 100.0100, L500.2500 #### [facility] [address] [place], [address] SO2 98 Normal 95-99 [facility] Comment on above: Performed By: #### L 100.0100, L500.2500 #### [facility] [address] [place], [address] CBC W/Diff, Automatedon 01-1 Absolute Lymph 1.46 X10 3/uL Normal 0.83-4.51 [facility] Comment on above: Performed By: #### L 500.2500, L100.0100 #### [facility] [address] [place], [address] Absolute Neut 5.2 X10 3/uL Normal 2.0-7.7 [facility] Comment on above: Performed By: #### L 500.2500, L100.0100 #### [facility] [address] [place], [address] Basophils/100 WBC (Bld) 0.8 % Normal 0-1 [facility] Comment on above: Performed By: #### L 500.2500, L100.0100 #### [facility] [address] [place], [address] Eosinophils/100 WBC (Bld) 0.9 % Normal 0-5 [facility] Comment on above: Performed By: #### L 500.2500, L100.0100 #### [facility] [address] [place], [address] Erythrocyte distribution width (RBC) [Ratio] 14.0 % Normal 11.6-14.6 [facility] Comment on above: Performed By: #### L 500.2500, L100.0100 #### [facility] [address] [place], [address] Hematocrit (Bld) [Volume fraction] 34.0 % Low 37-47 [facility] Comment on above: Performed By: #### L 500.2500, L100.0100 #### [facility] [address] [place], [address] Hemoglobin (Bld) [Mass/Vol] 11.0 g/dL Low 12.0-15.0 [facility] Comment on above: Performed By: #### L 500.2500, L100.0100 #### [facility] [address] [place], [address] IG% 0.300 Normal 0.0-0.9 [facility] Comment on above: Result Comment: IG% - Immature Granulocytes (promyelocytes, myelocytes and metamyelocytes) > 1% indicates that a LEFT SHIFT is Present. Performed By: #### L 500.2500, L100.0100 #### [facility] [address] [place], [address] Lymphocytes/100 WBC (Bld) 19.5 % Normal 19-41 [facility] Comment on above: Performed By: #### L 500.2500, L100.0100 #### [facility] [address] [place], [address] MCH (RBC) [Entitic mass] 30.1 pg Normal 27.0-32.0 [facility] Comment on above: Performed By: #### L 500.2500, L100.0100 #### [facility] [address] [place], [address] MCHC (RBC) [Mass/Vol] 32.4 g/dL Normal 32-36 [facility] Comment on above: Performed By: #### L 500.2500, L100.0100 #### [facility] [address] [place], [address] MCV (RBC) [Entitic vol] 92.9 fL Normal 81-99 [facility] Comment on above: Performed By: #### L 500.2500, L100.0100 #### [facility] [address] [place], [address] Monocytes/100 WBC (Bld) 8.4 % Normal 0-10 [facility] Comment on above: Performed By: #### L 500.2500, L100.0100 #### [facility] [address] [place], [address] Neutrophils/100 WBC (Bld) 70.1 % High 47-70 [facility] Comment on above: Performed By: #### L 500.2500, L100.0100 #### [facility] [address] [place], [address] Nucleated RBC (Bld) [#/Vol] 0 10*3/uL Normal 0-5 [facility] Comment on above: Performed By: #### L 500.2500, L100.0100 #### [facility] [address] [place], [address] Platelet mean volume (Bld) [Entitic vol] 9.5 fL Normal 6.2-12.0 [facility] Comment on above: Performed By: #### L 500.2500, L100.0100 #### [facility] [address] [place], [address] Platelets (Bld) [#/Vol] 239 10*3/uL Normal 150-450 [facility] Comment on above: Performed By: #### L 500.2500, L100.0100 #### [facility] [address] [place], [address] RBC (Bld) [#/Vol] 3.66 10*6/uL Low 4.2-5.4 [facility] Comment on above: Performed By: #### L 500.2500, L100.0100 #### [facility] [address] [place], [address] RDW SD 47.4 fl High 35.1-43.9 [facility] Comment on above: Performed By: #### L 500.2500, L100.0100 #### [facility] [address] [place], [address] WBC (Bld) [#/Vol] 7.5 10*3/uL Normal 4.4-11.0 [facility] Comment on above: Performed By: #### L 500.2500, L100.0100 #### [facility] [address] [place], [address] Chest 1 View (Portable)on Chest 1 View (Portable) [facility] Imaging Services [address] [place] [address] Chest 1 View (Portable) MR#: [id number] Acct: [id number] Name: LUCILLE THURMAN Rep #: [id number] : 1935 F 89 From: Kareem amanda MD PCP: Treva Tannhof, ORDER CLERK-C Status: REG ER Study: Chest 1 View (Portable) Date of Exam: 10/04/24 Exam# [id number] Ordering Dr: [place] [id number] STUDY: X-RAY CHEST REASON FOR EXAM: Female, 89 years old. Shortness of breath TECHNIQUE: Single AP portable view of the chest. COMPARISON: Comparison is made with prior study dated April 25, 2013. FINDINGS: EKG electrodes are seen. Vascular congestion and CHF with blunting of both costophrenic angles. Airspace disease in the left hemithorax suggestive of either superimposed infection or possible atypical pulmonary edema. There is borderline cardiomegaly. Normal mediastinum and jayden. Normal visualized pulmonary arteries. There is atherosclerotic calcification of the aortic arch with tortuosity. Normal visualized thoracic spine. Status post left reverse shoulder replacement. There is no demonstrated abnormality of the visualized soft tissue structures of the upper abdomen. RAD/Chest 1 View (Portable) IMPRESSION: Findings in comparison with the CHF has described. Airspace disease in the left hemithorax suggestive of either superimposed infection versus atypical pulmonary edema. Electronically Signed: Kareem Viera MD at 12:25 [facility] , CC: AMAURY Sandoval; Dr. Julio Pickens MD Foundry Superintendant: Signed Normal [facility] Echo Completeon 10-04-2024 Echo Complete [facility] [address] [place] [address] Echo Complete 10/05/24 1027 MR#: [id number] Acct: [id number] Name: DENNY THURMANALVA CHEW Rep #: [id number] : 1935 89 From: Jonah Bashir MD Attending Dr: Dr. Tone Bethea MD Status: ADM IN Ordering Dr: Jenifer Valente DO Date: 10/04/24 Location: [facility] Sex: F C Admitted: 10/04/24 Reason For Study: CONGESTIVE HEART FAILURE Procedure This was a 2D Doppler, Color Flow transthoracic echocardiogram. Exam performed portable in patient room. Left Ventricle Normal LV size. Mild concentric left ventricular hypertrophy. The left ventricular ejection fraction is 65 %. Stage 1 diastolic dysfunction. Right Ventricle Normal right ventricle. Atria The left and right atria are normal. Mitral Valve Severe mitral annular calcification. Mild (1+) mitral valve insufficiency. Tricuspid Valve Mild tricuspid valve insufficiency. Right ventricular systolic pressure estimated to be 41 mmHg. Aortic Valve Mild focal aortic valve calcification. Trivial aortic valve insufficiency. Pulmonic Valve The pulmonic valve is not well visualized. Great Vessels Normal sized aortic root. Pericardium/Pleural Trivial pericardial effusion. Epicardial fat. MMode/2D Measurements Calculations LVIDd: 4.7 cm IVSd: 1.1 cm LVOT diam: 1.9 cm LVIDs: 2.9 cm LVPWd: 1.2 cm LVOT area: 2.9 cm2 RVDd: 3.1 cm FS: 37.3 % LA dimension: 3.8 cm asc Aorta Diam: 3.0 cm LAV(MOD-bp): 52.2 ml LAV(MOD-bp) Indexed: 29.9 ml/m2 LAV(MOD-sp2): 54.5 ml LAV(MOD-sp4): 46.6 ml SV(MOD-sp4): 28.4 ml LVAd ap4: 17.0 cm2 LVAd ap2: 18.5 cm2 LVLd ap4: 5.8 cm LVLd ap2: 6.3 cm SI(MOD-sp4): 16.3 ml/m2 EDV(MOD-sp4): 40.7 ml EDV(MOD-sp2): 43.8 ml EDV(sp4-el): 42.6 ml EDV(sp2-el): 45.9 ml LVAs ap4: 8.4 cm2 LVAs ap2: 8.2 cm2 LVLs ap4: 4.7 cm LVLs ap2: 4.5 cm ESV(MOD-sp4): 12.3 ml ESV(MOD-sp2): 12.3 ml ESV(sp4-el): 12.9 ml ESV(sp2-el): 12.7 ml EF(MOD-sp4): 69.8 % EF(MOD-sp2): 72.1 % EF(sp4-el): 69.8 % SV(MOD-sp2): 31.6 ml SV(sp4-el): 29.8 ml Ao sinus diam: 3.1 cm SI(MOD-sp2): 18.1 ml/m2 Ao ST Junction: 2.4 cm LA dimension(2D): 3.8 cm LA A4 area: 17.8 cm2 TAPSE: 2.0 cm RA A4 area: 16.8 cm2 Time Measurements MV dec time: 0.30 sec Doppler Measurements Calculations MV E max brandy: 128.9 cm/sec Lat Peak E' Brandy: 6.6 cm/sec Med Peak E' Brandy: 5.5 cm/sec MV A max brandy: 96.8 cm/sec E/E' lat: 19.6 E/E' med: 23.2 MV E/A: 1.3 MV V2 max: 148.3 cm/sec MV dec slope: 425.4 cm/sec2 Ao V2 max: 158.2 cm/sec MV max P.8 mmHg Ao max P.0 mmHg MV V2 mean: 97.2 cm/sec Ao V2 mean: 106.8 cm/sec MV mean P.1 mmHg Ao mean P.4 mmHg MV V2 VTI: 37.7 cm Ao V2 VTI: 34.7 cm MVA(VTI): 1.8 cm2 AV (velocity ratio): 0.69 MALI(I,D): 2.0 cm2 MALI(V,D): 2.1 cm2 LV V1 max: 112.9 cm/sec SV(LVOT): 69.3 ml PA V2 max: 121.2 cm/sec LV V1 max P.1 mmHg LV V1 mean P.8 mmHg LV V1 mean: 79.6 cm/sec LV V1 VTI: 24.1 cm TR max brandy: 298.2 cm/sec TR max P.6 mmHg ECHO/Echo Complete Interpretation Summary Mild concentric left ventricular hypertrophy. The left ventricular ejection fraction is 65 %. Stage 1 diastolic dysfunction. Severe mitral annular calcification. Mild (1+) mitral valve insufficiency. Mild tricuspid valve insufficiency. Right ventricular systolic pressure estimated to be 41 mmHg. Mild focal aortic valve calcification. Ordering Physician: Jenifer Valente Performed By: Gricelda Cuba RDCS 10/05/24 1326 Date Jonah Bashir MD CC: AMAURY Sandoval; Dr. Jenifer Valente DO; Dr. Tone Bethea MD Date Dictated: 10/05/24 1027 Date Transcribed: 10/05/24 1326 Foundry Superintendant: Signed Normal [facility] Emergency Department Summary on 10-04-2024 Emergency Department Summary [facility] Medical Records Department [address] [place] [address] Emergency Department Summary 10/04/24 MR#: [id number] Acct: [id number] Name: LUCILLE THURMAN Rep #: [id number] : 1935 89 From: Julio Pickens MD PCP: AMAURY Louise Status:REG ER Location: ED HPI History of Present Illness Chief Complaint: Shortness of Breath Narrative Narrative: 89-year-old female presents with increasing shortness of breath that started this morning. History and physical is mildly limited secondary to respiratory distress. Her daughter who is at the [facility] states that this morning, she started having increasing difficulty breathing. She is audibly rhonchorous. She complains of chest heaviness and difficulty breathing. She also states that she feels hot. Daughter states that her legs have been increasingly swollen recently as well. However, she does not have a history of COPD or CHF. [facility] Medical History (Updated 10/04/24 @ 14:43 by Julio Pickens MD) Anemia Diabetes Non-smoker Skin cancer Dehydration GERD (gastroesophageal reflux disease) Acute blood loss anemia Closed left hip fracture HTN (hypertension) Hypercholesteremia Type II diabetes mellitus Home Medications ???Medication ???Instructions ???Recorded ???Last Taken ???Type atorvastatin 80 mg tablet 80 mg PO QHS 08/25/13 Unknown History glimepiride 2 mg tablet 4 mg PO DAILY 08/25/13 02/08/15 07:00 History lisinopril 40 mg tablet 40 mg PO DAILY 08/25/13 02/14/16 05:00 History multivitamin with folic acid 400 1 tab PO DAILYCM #30 tabs 02/11/15 Unknown Rx mcg tablet amlodipine 5 mg tablet 5 mg PO DAILY 04/10/19 Unknown History Poglitasone 15 mg PO DAILY 05/23/19 Unknown History omeprazole 40 mg capsule,delayed 40 mg PO DAILY 05/23/19 Unknown History release blood sugar diagnostic (True 10/04/24 Unknown History Metrix Glucose Test Strip) Allergy/AdvReac Type Severity Reaction Status Date / Time metformin Allergy Hives Verified 05/23/19 08:24 morphine AdvReac Nausea Verified 05/23/19 08:24 oxycodone (Oxycodone) AdvReac Nausea Verified 05/23/19 08:24 Family History Sister Breast cancer Colon cancer Diabetes Uncle Heart disease Brother Kidney disease Surgical History (Updated 10/04/24 @ 13:59 by Ade Whiting) History of appendectomy History of cholecystectomy History of hip replacement History of shoulder replacement S/P ORIF (open reduction internal fixation) fracture Social History household members: none current occupational status: retired Smoking Status: Never smoker alcohol intake: never substance use type: does not use ROS ROS ED ROS Narrative Constitutional: No fever, no chills. However, subjectively warm all over. HEENT: No sore throat. No neck pain. No loss of vision. No rhinorrhea. Cardiovascular: Positive chest heaviness chest pain. No palpitations. Positive/increased pedal edema. Respiratory: Occasional cough, increasing shortness of breath. Abdominal: No abdominal pain. No nausea. No vomiting. Genitourinary: No dysuria. No hematuria. Musculoskeletal: No myalgias. No arthralgias. Neurologic: No headaches. No dizziness. No lightheadedness. Skin: No rash. No change in color. EXAM Physical Exam Narrative Exam Narrative: Afebrile. Vital signs noted. Mild respiratory distress. Cardiovascular examination reveals a regular rate and rhythm. Lungs are rhonchorous with positive tachypnea. Abdomen is soft and nontender with positive bowel sounds. No guarding or rebound. Neurological examination nonfocal and nonlateralizing. Mild anxiety. Positive bilateral pitting pedal edema, equal and symmetric. Const Vital Signs: 10/04/24 10:32 10/04/24 10:37 10/04/24 10:38 Temperature 98.2 F 98.2 F 98.2 F Temperature Source Temporal Temporal Temporal Pulse Rate 66 69 69 Respiratory Rate 28 H 30 H 27 H Respiratory Effort Respiratory Pattern Blood Pressure 231/86 H 231/86 H 231/86 H Blood Pressure Mean 134 134 134 Pulse Ox 95 92 92 Oxygen Delivery Method Room Air Room Air Room Air Fraction of Inspired Oxygen (FIO2) 10/04/24 10:38 10/04/24 11:04 10/04/24 11:10 Temperature Temperature Source Pulse Rate 97 Respiratory Rate 26 H Respiratory Effort Short of Breath Respiratory Pattern Tachypnea Tachypnea Blood Pressure Blood Pressure Mean Pulse Ox 90 Oxygen Delivery Method Room Air Nasal Cannula Fraction of Inspired Oxygen (FIO2) 10/04/24 11:30 10/04/24 11:51 10/04/24 11:56 Temperature 98.6 F Temperature Source Oral Pulse Rate 97 98 98 Respiratory Rate 33 H 26 H 29 H Respiratory Effort Respiratory Pattern (more content not included)... Normal [facility] H AND P Exam - Hospitaliston 10-04-2024 H&P Exam - Hospitalist [facility] Medical Records Department [address] [place] [address] H P Exam - Hospitalist 10/04/24 1440 MR#: [id number] Acct: [id number] Name: LUCILLE THURMAN Rep #: [id number] : 1935 89 From: Jenifer Valente DO PCP: LUIS LouiseC Status:ADM IN [facility] - General General Date of Admission: 10/04/24 Date of Service: 10/04/24 Chief Complaint: Shortness of breath HPI Narrative LUCILLE THURMAN, is a 89 F who presented to the emergency department [facility] on 10/04/2024 with shortness of breath. Patient and family both assist with the history. It reported that her symptoms started yesterday and she reported to her son that she just was not feeling quite right but did not describe any symptoms at that time. Evidently today she began having shortness of breath without any significant new cough. She has chronic cough but this has been unchanged. She denies any fever or chills. She denies any new sputum production with cough. She has not had any nausea vomiting or diarrhea. She denies chest pain. She denies any upper respiratory symptoms. She has no known sick contacts. She has never had an echocardiogram and has no known heart issues but does have a history of hypertension and hyperlipidemia as well as DM-2. Family also reiterates that her legs have been much more swollen over the last few weeks. Vital signs on presentation showed a temperature of 98.2, heart rate 66, initial blood pressure was 231/86 with a repeat after treatment of 133/61, respiratory rate has been anywhere between 21 and 33 while she has been in the emergency department and pulse ox was 89% on room air at [facility]. She was placed on BiPAP for work of breathing predominantly. CBC shows a normal white count mild anemia with a hemoglobin of 11.0 that is normocytic and appears to be stable when compared to previous lab. She did have a mild left shift at 70.1% neutrophilia. Chemistry panel shows stable electrolytes. BUN is 29 and her serum creatinine is 1.2 with unknown recent baseline however patient does acknowledge she has CKD. Blood glucose was 143. BNP was obtained and found to be 496.4. Her troponin was normal. EKG shows normal sinus rhythm with normal intervals and no ST-T wave changes concerning for acute ischemia. Chest x-ray is consistent with volume overload with possible airspace disease on the left side that would be consistent with possible atypical infection versus pulmonary edema. COVID/flu/RSV was negative. ABG was drawn and showed a pH of 7.41 with a pCO2 of 34.7 and a pO2 of 105 on 50% FiO2. In the emergency department she was placed on BiPAP and given a dose of IV Lasix. [facility] Medical History Anemia Diabetes Non-smoker Skin cancer Dehydration GERD (gastroesophageal reflux disease) Acute blood loss anemia Closed left hip fracture HTN (hypertension) Hypercholesteremia Type II diabetes mellitus Home Medications ???Medication ???Instructions ???Recorded ???Last Taken ???Type atorvastatin 80 mg tablet 80 mg PO QHS 08/25/13 Unknown History glimepiride 2 mg tablet 4 mg PO DAILY 08/25/13 02/08/15 07:00 History lisinopril 40 mg tablet 40 mg PO DAILY 08/25/13 02/14/16 05:00 History multivitamin with folic acid 400 1 tab PO DAILYCM #30 tabs 02/11/15 Unknown Rx mcg tablet amlodipine 5 mg tablet 5 mg PO DAILY 04/10/19 Unknown History Poglitasone 15 mg PO DAILY 05/23/19 Unknown History omeprazole 40 mg capsule,delayed 40 mg PO DAILY 05/23/19 Unknown History release blood sugar diagnostic (True 10/04/24 Unknown History Metrix Glucose Test Strip) Allergy/AdvReac Type Severity Reaction Status Date / Time metformin Allergy Hives Verified 05/23/19 08:24 morphine AdvReac Nausea Verified 05/23/19 08:24 oxycodone (Oxycodone) AdvReac Nausea Verified 05/23/19 08:24 Family History Sister Breast cancer Colon cancer Diabetes Uncle Heart disease Brother Kidney disease Surgical History History of appendectomy History of cholecystectomy History of hip replacement History of shoulder replacement S/P ORIF (open reduction internal fixation) fracture Social History household members: none current occupational status: retired Smoking Status: Never smoker alcohol intake: never substance use type: does not use ROS Constitutional Constitutional: Denies anorexia, change in weight, chills, fatigue, fever(s), malaise, night sweats, weakness or other Eyes Eyes: Denies blurry vision, change in eye color, change in vision, discharge from eye(s), double vision, erythema, eye pain, loss of vision or other ENT HEENT: De (more content not included)... Normal [facility] L501.4020on 10-04-2024 TROPONIN-I HS 1362 pg/mL Invalid Interpretation Code 3.0-54.0 [facility] Comment on above: Order Comment: Comme nts: SPECIMEN #3 'TROP' Serial specimen #1, #2 or #3: 3 Result Comment: Crit ical Result(s) Called at: 22:52:42 10/04/2024 by: ABDIAS CORRAL TO CARLOS KWAN. Results read back by same. Please Note: New Test Units and Gender Specific Reference Ranges. For more information see Policy Stat Procedure [place] High Sensitivity Troponin (TNIH) and attachments. Performed By: #### L 501.4020, L500.2500 #### [facility] [address] [place], [place], [id number] TROPONIN-I HS 1024 pg/mL Invalid Interpretation Code 3.0-54.0 [facility] Comment on above: Order Comment: Comme nts: SPECIMEN #2'TROP' Serial specimen #1, #2 or #3: 2 Result Comment: Crit ical Result(s) Called at: 19:07:57 10/04/2024 by: ABDIAS CHICAS. Results read back by same. Please Note: New Test Units and Gender Specific Reference Ranges. For more information see Policy Stat Procedure [place] High Sensitivity Troponin (TNIH) and attachments. Performed By: #### L 100.0100, L500.2500 #### [facility] [address] [place], [address] TROPONIN-I HS 775 pg/mL Invalid Interpretation Code 3.0-54.0 [facility] Comment on above: Order Comment: 'TROP ' Serial specimen #1, #2 or #3: 1 Result Comment: Crit ical Result(s) Called at: 17:25:53 10/04/2024 by: ABDIAS CORRAL TO Xavier BOSS. Results read back by same. Please Note: New Test Units and Gender Specific Reference Ranges. For more information see Policy Stat Procedure [place] High Sensitivity Troponin (TNIH) and attachments. Performed By: #### L 501.4020 #### [facility] [address] [place], [address] TROPONIN-I HS 15 pg/mL Normal 3.0-54.0 [facility] Comment on above: Order Comment: 'TROP ' Serial specimen #1, #2 or #3: 1 Result Comment: Plea se Note: New Test Units and Gender Specific Reference Ranges. For more information see Policy Stat Procedure [place] High Sensitivity Troponin (TNIH) and attachments. Performed By: #### L 500.2500, L100.0100 #### [facility] [address] [place], [address] M100.678on 10-04-2024 M100.678 Pending SARS-CoV-2 (COVID 19) Negative INFLUENZA A Negative INFLUENZA B Negative RSV PCR Negative Normal [facility] Comment on above: Performed By: #### L 100.0100, L500.2500 #### [facility] [address] [place], [address] Partial Thromboplast Timeon 10-04-2024 aPTT Coag (Bld) [Time] 25.2 s Normal 24.1-36.2 [facility] Comment on above: Performed By: #### L 500.2500, L100.0100 #### [facility] [address] [place], [address] Prothrombin Time w/INRon INR Coag (PPP) [Relative time] 1.1 {INR} Normal [facility] Comment on above: Performed By: #### L 500.2500, L100.0100 #### [facility] [address] [place], [address] PT Coag (PPP) [Time] 14.6 s Normal 11.7-14.9 [facility] Comment on above: Performed By: #### L 500.2500, L100.0100 #### [facility] [address] [place], [address] RESPIRATORY PANEL MOLECULARo n 10-04-2024 RP PANEL ADENOVIRUS Not Detected INFLUENZA A Not Detected INFLUENZA A (SUBTYPE H1) Not Detected INFLUENZA A (SUBTYPE H3) Not Detected INFLUENZA B Not Detected HUMAN METAPHNEUMO Not Detected PARAINFLUENZA 1 Not Detected PARAINFLUENZA 2 Not Detected PARAINFLUENZA 3 Not Detected PARAINFLUENZA 4 Not Detected RHINOVIRUS Not Detected RSV A Not Detected RSV B Not Detected Normal [facility] Comment on above: Performed By: #### M 100.638 #### [facility] [address] [place], [address] [facility]NPNon [facility]-20[facility] LUCILLE THURMAN ([id number]) 1935 F Do not c* Date Time Provider Department 09/18/24 [facility] During your visit today, we recorded the following information about you: Marlena Hampton RN 09/18/2024 9:48 AM Signed Patient calls with updated blood pressure readings since she started on metoprolol. Patient reports that on Wednesday (09/16) her blood pressure was 118/46. Yesterday (09/17) her blood pressure at 1 pm was 145/53 and at 11 pm it was 141/52. Patient reports that she had went to exercise today and had gotten along fine. Patient reports that when she got home she decided to roller picker sticks around her trailer. Patient states that she had to sit down after picking up stick. Please review and advise, YUDI Parikh Ashley, APRN.PUBLIC RELATIONS OFFICER 09/18/2024 10:28 AM Signed Can you please call the patient back and let her know that her blood pressure is looking better. However her diastolic seems on the low side. Is she is having any dizziness or feeling unsteady on her feet since starting medication? If so we can cut dose in half and take 1/2 tablet in the morning and 1/2 tablet in the evening. Treva Sandoval APRN.Arnold Sal LPN 09/18/2024 11:03 AM Signed Patient notified of update., verbalizes understanding of instructions. Pt stated she is not having any problems on the medication. Except the low diastolic. Advise Pt of taking 1/2 tabs. Pt stated she will try that and send updates on BP. Arnold Gottlieb LPN Allergies As of Date: 09/18/2024 Noted Allergy Reaction METFORMIN 03/13/2013 6 - Diarrhea MORPHINE 02/14/2016 8 - GI Upset OXYCODONE 02/14/2016 8 - GI Upset PREVACID (LANSOPRAZOLE) 07/20/2005 Date Reviewed: 09/14/2024 Reviewed by: Lisa Sterling LPN - Fully Assessed Reason for Visit: Patient Update [1234] Prescriptions as of 09/27/2024 - metoprolol succinate ER (TOPROL XL) 25 mg 24 hr tablet Take 1 tablet by mouth once daily. - atorvastatin (LIPITOR) 80 mg tablet Take 1 tablet by mouth daily at bedtime. For cholesterol. - glimepiride (AMARYL) 1 mg tablet Take 1 tablet by mouth daily with breakfast. - lisinopril (ZESTRIL) 40 mg tablet Take 1 tablet by mouth once daily. - pioglitazone (ACTOS) 15 mg tablet Take 1 tablet by mouth once daily. - povidone, PF, (IVIZIA, PF,) 0.5 % drop Use 1 Drop in eyes three times a day. - blood sugar diagnostic (BLOOD GLUCOSE TEST) test strip Test blood sugar(s) 1 times daily. Dx: E11.9. Insulin: No, Brand covered by insurance - omeprazole (PRILOSEC) 20 mg capsule take 1 capsule by mouth every other day 1/2 HOUR BEFORE BREAKFAST - MULTIVITS, W-CA,FE,OTH MIN (MULTIVITAMIN AND MINERAL ORAL) Take 1 tablet by mouth once daily. 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 cough [R05.3] 08/08/2009 08/30/2015 Essential hypertension, benign [I10] 07/30/2010 Lumbar disc disease with radiculopathy [M51.16] 02/25/2011 Lateral epicondylitis [M77.10] 08/18/2011 07/01/2015 Vitamin D deficiency [E55.9] 08/20/2011 Contact eczematous dermatitis [L25.9] 03/09/2013 03/22/2019 Rash and other nonspecific skin eruption [R21] 03/09/2013 09/29/2018 Actinic keratosis [L57.0] 03/09/2013 03/22/2019 Actinic skin damage [L57.8] 03/09/2013 03/22/2019 Xerosis cutis [L85.3] 03/09/2013 03/22/2019 Carpal tunnel syndrome [G56.00] 09/29/2013 03/22/2019 Gall bladder stones [K80.20] 06/29/2014 10/19/2014 Gall bladder polyp [K82.4] 06/29/2014 10/19/2014 RUQ pain [R10.11] 06/29/2014 10/19/2014 Arteriosclerosis of both carotid arteries [I65.*10/19/2014 Forgetfulness [R68.89] 08/30/2015 Hyperlipidemia LDL goal <100 [E78.5] 02/21/2016 Osteoporosis [M81.0] 03/17/2016 Personal history of colonic polyps [Z86.0100] 10/13/2016 Trochanteric bursitis of left hip [M70.62] 12/07/2016 03/22/2019 Acute blood loss anemia [D62] 09/28/2017 09/29/2018 Closed fracture of hip (HCC) [S72.009A] 09/28/2017 03/22/2019 Acid reflux [K21.9] 09/28/2017 Stress incontinence [N39.3] 09/28/2017 DDD (degenerative disc disease), cervical [M50.*09/29/2018 Encounter Status:Closed by MARLENA HAMPTON on 09/27/24 [facility] CNOVon 09-14-2024 CN Office Visit ([facility]ILWS ) LUCILLE THURMAN ([id number]) 1935 F Do not c* Date Time Provider Department 09/14/24 11:40 AM TREVA SANDOVAL During your visit today, we recorded the following information about you: Pulse Blood pressure Weight 75/minute 155/73 73 kg Treva Sandoval APRN.BERNARDO 09/14/2024 2:01 PM Signed This is a 89 year old female who presents today with: Patient presents with: Follow Up: Blood pressure HISTORY OF PRESENT ILLNESS: Lucille Thurman is a 89 year old female. Patient presents with: Follow Up: Blood pressure Here in the office for blood pressure follow up. Earlier this month increased amlodipine 5 mg BID, still taking Lisinopril 40 mg daily. Checking BP at [id number]'s-160/50-70's. Has noticed increased lower leg swelling since increasing Amlodipine. Denies chest pain, palpitations, or dizziness. No SOB. PAST MEDICAL HISTORY: PAST MEDICAL HISTORY Diagnosis Date Acquired absence of other specified parts of digestive tract Age-related osteoporosis without current pathological fracture Arteriosclerosis of both carotid arteries 10/19/2014 Cataract extraction status, left eye Cataract extraction status, right eye DDD (degenerative disc disease), cervical 09/29/2018 Diverticulosis of colon (without mention of hemorrhage) Diverticulosis Do not resuscitate Essential hypertension, benign 07/30/2010 Gastro-esophageal reflux disease without esophagitis History of fall Hyperlipidemia Inflammatory disease of breast snf (current) use 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 snf (current) use of oral hypoglycemic drugs Lumbar disc disease with radiculopathy 02/25/2011 Osteoporosis 03/17/2016 Personal history of (healed) traumatic fracture Presence of left artificial shoulder joint Right carotid bruit 10/16/2014 Type II or unspecified type diabetes mellitus without mention of complication, not stated as uncontrolled Unspecified hearing loss, bilateral Vitamin D deficiency 08/20/2011 PAST SURGICAL HISTORY Procedure Laterality Date APPENDECTOMY BX BREAST NEEDLE CORE W/O IMAGING GUIDANCE SPX cant recall which breast COLONOSCOPY FLX DX W/COLLJ SPEC WHEN PFRMD 07/25/2001 Colonoscopy CORRJ HLX VLGS BNCTY SESMDC DSTL METAR OSTEOT cant remember which foot ESOPHAGOGASTRODUODENOSC OPY TRANSORAL DIAGNOSTIC 2015 Erosive gastritis, duodenal bulb ulcer LAPS SURG CHOLECYSTECTOMY W/CHOLANGIOGRAPHY 08-02-14 MRCP 2015 subcentimeter cyst MYRINGOTOMY ASPIRAND/EUSTACHIAN TUBE NFLTJ ANES Myringotomy/tubes, right NEUROPLASTY AND/TRANSPOS MEDIAN NRV CARPAL TUNNE 10-20-13 RIGHT PAST SURGICAL HISTORY OF skin CA face PAST SURGICAL HISTORY OF left partial shoulder replacement PULMONARY FUNCTION TEST ALLERGIES Metformin, Morphine, Oxycodone, and Prevacid [Lansoprazole] MEDICATIONS Current Outpatient Medications Medication Sig amLODIPine (NORVASC) 5 mg tablet Take 1 tablet by mouth once daily. blood sugar diagnostic (BLOOD GLUCOSE TEST) test strip Test blood sugar(s) 1 times daily. Dx: E11.9. Insulin: No, Brand covered by insurance omeprazole (PRILOSEC) 20 mg capsule take 1 capsule by mouth every other day 1/2 HOUR BEFORE BREAKFAST glimepiride (AMARYL) 1 mg tablet Take 1 tablet by mouth daily with breakfast. lisinopril (ZESTRIL) 40 mg tablet Take 1 tablet by mouth once daily. pioglitazone (ACTOS) 15 mg tablet Take 1 tablet by mouth once daily. atorvastatin (LIPITOR) 80 mg tablet Take 1 tablet by mouth daily at bedtime. For cholesterol. polyethylene glycol 3350 (MIRALAX) 17 gram/dose powder Take one scoop daily with glass of juice/water/etc. (Patient taking differently: as needed. Take one scoop daily with glass of juice/water/etc.) MULTIVITS, W-CA,FE,OTH MIN (MULTIVITAMIN AND MINERAL ORAL) Take 1 tablet by mouth once daily. lancets(FREESTYLE LANCETS) use daily blood glucose control highANDlow(FREESTYLE CONTROL SOLN) use as directed No current facility-administered medications for this visit. FAMILY HISTORY Problem Relation Age of Onset Diabetes Mother Heart Mother COPD Father Colon Cancer Sister Diabetes Sister Alcohol abuse Sister COPD Sister COPD Sister Diabetes Brother Kidney Disease Brother Kidney Disease Brother Diabetes Daughter Social History Tobacco Use Smoking status: Never Smokeless tobacco: Never Vaping Use Vaping status: Never Used Substance Use Topics Alcohol use: No Drug use: No REVIEW OF SYSTEMS GENERAL: No weight loss, malaise or fevers/chills HEENT: Negative for frequent or significant headaches, No changes in hearing or vision. NECK: Negative for lumps, goiter, pain and significant neck swelling RESPIRATORY: Negative for cough, hemoptysis, wheezing, dyspnea or shortness of breath CARDIOVASCULAR: Negative for chest pain, orthopnea, or palpitations + Leg swelling GI: No nausea, vomiting, or diarrhea/c (more content not included)... Normal [facility] CNOVon 08-28-2024 CNOV Office Visit (FAMPWS ) LUCILLE THURMAN ([id number]) 1935 F Do not c* Date Time Provider Department 12/9/24 3:00 PM TREVA SANDOVAL During your visit today, we recorded the following information about you: Pulse Blood pressure Weight Height 73/minute 168/62 71.2 kg 1.6 m Treav Sandoval APRN.CNP 08/28/2024 9:36 PM Signed This is a 89 year old female who presents today with: Patient presents with: Blood Pressure HISTORY OF PRESENT ILLNESS: Lucille Thurman is a 89 year old female. Patient presents with: Blood Pressure Here in the office for 1 month blood pressure check. Last office visit stopped hydrochlorothiazide to help kidney function. Added on amlodipine 5 mg daily and instructed to continue with lisinopril 40 mg daily. Checking blood pressure at home, 120-180's/60-80's. Refers that BP varies. Denies chest pain, palpitations, dizziness, or edema. PAST MEDICAL HISTORY: PAST MEDICAL HISTORY Diagnosis Date Acquired absence of other specified parts of digestive tract Age-related osteoporosis without current pathological fracture Arteriosclerosis of both carotid arteries 10/19/2014 Cataract extraction status, left eye Cataract extraction status, right eye DDD (degenerative disc disease), cervical 09/29/2018 Diverticulosis of colon (without mention of hemorrhage) Diverticulosis Do not resuscitate Essential hypertension, benign 07/30/2010 Gastro-esophageal reflux disease without esophagitis History of fall Hyperlipidemia Inflammatory disease of breast snf (current) use 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 hypoglycemic drugs Lumbar disc disease with radiculopathy 02/25/2011 Osteoporosis 03/17/2016 Personal history of (healed) traumatic fracture Presence of left artificial shoulder joint Right carotid bruit 10/16/2014 Type II or unspecified type diabetes mellitus without mention of complication, not stated as uncontrolled Unspecified hearing loss, bilateral Vitamin D deficiency 08/20/2011 PAST SURGICAL HISTORY Procedure Laterality Date APPENDECTOMY BX BREAST NEEDLE CORE W/O IMAGING GUIDANCE SPX cant recall which breast COLONOSCOPY FLX DX W/COLLJ SPEC WHEN PFRMD 07/25/2001 Colonoscopy CORRJ HLX VLGS BNCTY SESMDC DSTL METAR OSTEOT cant remember which foot ESOPHAGOGASTRODUODENOSC OPY TRANSORAL DIAGNOSTIC 2014 Erosive gastritis, duodenal bulb ulcer LAPS SURG CHOLECYSTECTOMY W/CHOLANGIOGRAPHY 08-02-14 MRCP 2015 subcentimeter cyst MYRINGOTOMY ASPIRAND/EUSTACHIAN TUBE NFLTJ ANES Myringotomy/tubes, right NEUROPLASTY AND/TRANSPOS MEDIAN NRV CARPAL TUNNE 10-20-13 RIGHT PAST SURGICAL HISTORY OF skin CA face PAST SURGICAL HISTORY OF left partial shoulder replacement PULMONARY FUNCTION TEST ALLERGIES Metformin, Morphine, Oxycodone, and Prevacid [Lansoprazole] MEDICATIONS Current Outpatient Medications Medication Sig amLODIPine (NORVASC) 5 mg tablet Take 1 tablet by mouth once daily. blood sugar diagnostic (BLOOD GLUCOSE TEST) test strip Test blood sugar(s) 1 times daily. Dx: E11.9. Insulin: No, Brand covered by insurance omeprazole (PRILOSEC) 20 mg capsule take 1 capsule by mouth every other day 1/2 HOUR BEFORE BREAKFAST glimepiride (AMARYL) 1 mg tablet Take 1 tablet by mouth daily with breakfast. lisinopril (ZESTRIL) 40 mg tablet Take 1 tablet by mouth once daily. pioglitazone (ACTOS) 15 mg tablet Take 1 tablet by mouth once daily. atorvastatin (LIPITOR) 80 mg tablet Take 1 tablet by mouth daily at bedtime. For cholesterol. polyethylene glycol 3350 (MIRALAX) 17 gram/dose powder Take one scoop daily with glass of juice/water/etc. (Patient taking differently: as needed. Take one scoop daily with glass of juice/water/etc.) MULTIVITS,TH W-CA,FE,OTH MIN (MULTIVITAMIN AND MINERAL ORAL) Take 1 tablet by mouth once daily. lancets(FREESTYLE LANCETS) use daily blood glucose control highANDlow(FREESTYLE CONTROL SOLN) use as directed No current facility-administered medications for this visit. FAMILY HISTORY Problem Relation Age of Onset Diabetes Mother Heart Mother COPD Father Colon Cancer Sister Diabetes Sister Alcohol abuse Sister COPD Sister COPD Sister Diabetes Brother Kidney Disease Brother Kidney Disease Brother Diabetes Daughter Social History Tobacco Use Smoking status: Never Smokeless tobacco: Never Vaping Use Vaping status: Never Used Substance Use Topics Alcohol use: No Drug use: No REVIEW OF SYSTEMS GENERAL: No weight loss, malaise or fevers/chills HEENT: Negative for frequent or significant headaches, No changes in hearing or vision. NECK: Negative for lumps, goiter, pain and significant neck swelling RESPIRATORY: Negative for cough, hemoptysis, wheezing, dyspnea or shortness of breath CARDIOVASCULAR: Negative for chest pain, leg swelling, orthopnea, or palpitations GI: No (more content not included)... Normal [facility] CNOVon 07-28-2024 CNOV Office Visit (FAMPWS ) LUCILLE THURMAN ([id number]) 1935 F Do not c* Date Time Provider Department 07/28/24 9:20 AM TREVA ASNDOVAL During your visit today, we recorded the following information about you: Pulse Respiration Blood pressure Weight 78/minute 16/minute 158/70 71.6 kg Treva Sandoval APRN.PUBLIC RELATIONS OFFICER 07/28/2024 12:28 PM Signed This is a 89 year old female who presents today with: Patient presents with: 6 Month Exam HISTORY OF PRESENT ILLNESS: Lucille Thurman is a 89 year old female. Patient presents with: 6 Month Exam 6 month follow up HTN: Taking lisinopril 40 mg daily and hydrochlorothiazide 12.5 mg daily. Not currently checking blood pressure at home. Denies chest pain, palpitations, dizziness, or edema. GERD: Taking omeprazole 20 mg every other day. Symptoms well controlled. Lipids: Taking Lipitor 80 mg daily. Working on diet. Tolerating medication well. DM: Taking Actos 50 mg daily and Amaryl 2 mg daily. Checking sugars at home, 95-120 fasting. Watching diet most of the time. Denies any hypoglycemic episodes, increased thirst/urination, or foot lesions. A1C went from 6.8 to 6.3. Decreased kidney function noted at last office visit, mild improvement on recent labs. Eye exam soon. Wearing glasses. PAST MEDICAL HISTORY: PAST MEDICAL HISTORY Diagnosis Date Acquired absence of other specified parts of digestive tract Age-related osteoporosis without current pathological fracture Arteriosclerosis of both carotid arteries 10/19/2014 Cataract extraction status, left eye Cataract extraction status, right eye DDD (degenerative disc disease), cervical 09/29/2018 Diverticulosis of colon (without mention of hemorrhage) Diverticulosis Do not resuscitate Essential hypertension, benign 07/30/2010 Gastro-esophageal reflux disease without esophagitis History of fall Hyperlipidemia Inflammatory disease of breast snf (current) use 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 snf (current) use of oral hypoglycemic drugs Lumbar disc disease with radiculopathy 02/25/2011 Osteoporosis 03/17/2016 Personal history of (healed) traumatic fracture Presence of left artificial shoulder joint Right carotid bruit 10/16/2014 Type II or unspecified type diabetes mellitus without mention of complication, not stated as uncontrolled Unspecified hearing loss, bilateral Vitamin D deficiency 08/20/2011 PAST SURGICAL HISTORY Procedure Laterality Date APPENDECTOMY BX BREAST NEEDLE CORE W/O IMAGING GUIDANCE SPX cant recall which breast COLONOSCOPY FLX DX W/COLLJ SPEC WHEN PFRMD 07/25/2001 Colonoscopy CORRJ HLX VLGS BNCTY SESMDC DSTL METAR OSTEOT cant remember which foot ESOPHAGOGASTRODUODENOSC OPY TRANSORAL DIAGNOSTIC 2014 Erosive gastritis, duodenal bulb ulcer LAPS SURG CHOLECYSTECTOMY W/CHOLANGIOGRAPHY 08-02-14 MRCP 2014 subcentimeter cyst MYRINGOTOMY ASPIRAND/EUSTACHIAN TUBE NFLTJ ANES Myringotomy/tubes, right NEUROPLASTY AND/TRANSPOS MEDIAN NRV CARPAL TUNNE 10-20-13 RIGHT PAST SURGICAL HISTORY OF skin CA face PAST SURGICAL HISTORY OF left partial shoulder replacement PULMONARY FUNCTION TEST ALLERGIES Metformin, Morphine, Oxycodone, and Prevacid [Lansoprazole] MEDICATIONS Current Outpatient Medications Medication Sig blood sugar diagnostic (BLOOD GLUCOSE TEST) test strip Test blood sugar(s) 1 times daily. Dx: E11.9. Insulin: No, Brand covered by insurance omeprazole (PRILOSEC) 20 mg capsule take 1 capsule by mouth every other day 1/2 HOUR BEFORE BREAKFAST glimepiride (AMARYL) 1 mg tablet Take 1 tablet by mouth daily with breakfast. lisinopril (ZESTRIL) 40 mg tablet Take 1 tablet by mouth once daily. pioglitazone (ACTOS) 15 mg tablet Take 1 tablet by mouth once daily. hydroCHLOROthiazide 12.5 mg capsule Take 1 capsule by mouth once daily. atorvastatin (LIPITOR) 80 mg tablet Take 1 tablet by mouth daily at bedtime. For cholesterol. tiZANidine (ZANAFLEX) 4 mg tablet Take 1 tablet by mouth every 8 hours as needed (muscle spasms). polyethylene glycol 3350 (MIRALAX) 17 gram/dose powder Take one scoop daily with glass of juice/water/etc. (Patient taking differently: as needed. Take one scoop daily with glass of juice/water/etc.) MULTIVITS,TH W-CA,FE,OTH MIN (MULTIVITAMIN AND MINERAL ORAL) Take 1 tablet by mouth once daily. lancets(FREESTYLE LANCETS) use daily blood glucose control highANDlow(FREESTYLE CONTROL SOLN) use as directed No current facility-administered medications for this visit. FAMILY HISTORY Problem Relation Age of Onset Diabetes Mother Heart Mother COPD Father Colon Cancer Sister Diabetes Sister Alcohol abuse Sister COPD Sister COPD Sister Diabetes Brother Kidney Disease Brother Kidney Disease Brother Diabetes Daughter Social History Tobacco Use Smoking status: Never Smokeless tobacco: Never Vaping Use Vaping status: Frantz (more content not included)... Normal [facility] ALBUMIN/CREATININE RATIO, UR INEon 07-27-2024 Albumin DL <= 20 mg/L (U) [Mass/Vol] 81.1 mg/L Normal [facility] Comment on above: Order Comment: Speci men Type: URINE SPECIMENOrdering Facility: [facility] Address: [address] [place] [address] Performed By: #### U ACR ####[facility] LABCLIA [id number] [place] [address] [place] Albumin/Creatinine (U) [Mass ratio] 153 mg/g High <30 [facility] Comment on above: Order Comment: Speci men Type: URINE SPECIMENOrdering Facility: [facility] Address: [address] [place] [address] Result Comment: Adul t Male and Female Nephrotic Criteria: <30 mg/g is considered normal to mildly increased 30-300 mg/g is considered moderately increased >300 mg/g is considered severely increased KDIGO. (2013). KDIGO 2012 Clinical Practice Guideline for the Evaluation and Management of Chronic Kidney Disease. Official Journal of the International Society of Nephrology, 3(1), 1-150. Performed By: #### U ACR ####[facility] LABCL[facility] [id number] [address] [id number] [address] [place] Creatinine (U) [Mass/Vol] 52.9 mg/dL Normal 20.0-300.0 [facility] Comment on above: Order Comment: Speci men Type: URINE SPECIMENOrdering Facility: [facility] Address: [address] [place] [address] Performed By: #### U ACR ####[facility] LABCLIA [id number] [place] [address] [place] Comprehensive metabolic 2000 panelon 07-27-2024 Albumin [Mass/Vol] 4.0 g/dL Normal 3.9-4.9 [facility] Comment on above: Order Comment: Speci men Type: BLOOD SPECIMENOrdering Facility: [facility] Address: [address] [place] [address] Performed By: #### 2 4331-1, 03621-4 ####[facility] LABCL[facility] [id number] [place] [address] [place] ALP [Catalytic activity/Vol] 72 U/L Normal 34-123 [facility] Comment on above: Order Comment: Speci men Type: BLOOD SPECIMENOrdering Facility: [facility] Address: [address] [place] [address] Performed By: #### 2 4331-1, 67764-9 ####[facility] LABCL[facility] [id number] [place] [address] [place] ALT [Catalytic activity/Vol] 16 U/L Normal 7-38 [facility] Comment on above: Order Comment: Speci men Type: BLOOD SPECIMENOrdering Facility: [facility] Address: [address] [place] [address] Performed By: #### 2 4331-1, 55397-7 ####[facility] LABCLIA [id number] [place] [id number] [place] Anion gap [Moles/Vol] 13 mmol/L Normal 8-15 [facility] Comment on above: Order Comment: Speci men Type: BLOOD SPECIMENOrdering Facility: [facility] Address: [address] [place], [place] [id number] Performed By: #### 2 4331-1, 54497-2 ####[facility] LABIA [id number] [place] [id number] [place] AST [Catalytic activity/Vol] 27 U/L Normal 13-35 [facility] Comment on above: Order Comment: Speci men Type: BLOOD SPECIMENOrdering Facility: [facility] Address: [address] [place], [place] [address] Performed By: #### 2 4331-1, 93282-6 ####[facility] LABIA [id number] [place] [address] [place] Bilirubin [Mass/Vol] 0.5 mg/dL Normal 0.2-1.3 [facility] Comment on above: Order Comment: Speci men Type: BLOOD SPECIMENOrdering Facility: [facility] Address: [address] [place], [place] [address] Performed By: #### 2 4331-1, 13413-2 ####[facility] LABIA [id number] [place] [address] [place] Calcium [Mass/Vol] 9.3 mg/dL Normal 8.5-10.2 [facility] Comment on above: Order Comment: Speci men Type: BLOOD SPECIMENOrdering Facility: [facility] Address: [address] [place], [place] [address] Performed By: #### 2 4331-1, 95862-3 ####[facility] LABIA [id number] [place] [id number] [place] Chloride [Moles/Vol] 106 mmol/L Normal 98-107 [facility] Comment on above: Order Comment: Speci men Type: BLOOD SPECIMENOrdering Facility: [facility] Address: [address] [place], [place] [address] Performed By: #### 2 4331-1, 45197-9 ####[facility] LABIA [id number] [place] [address] [place] CO2 [Moles/Vol] 22 mmol/L Normal 22-30 [facility] Comment on above: Order Comment: Speci men Type: BLOOD SPECIMENOrdering Facility: [facility] Address: [address] [place] [address] Performed By: #### 2 433-, 15329-9 ####[facility] LABIA [id number] [place] [address] [place] Creatinine [Mass/Vol] 1.08 mg/dL High 0.58-0.96 [facility] Comment on above: Order Comment: Speci men Type: BLOOD SPECIMENOrdering Facility: [facility] Address: [address] [place] [address] Performed By: #### 2 433-, 85300-6 ####[facility] [id number] [place] [address] [place] Creatinine and Glomerular filtration rate.predicted panel (S/P/Bld) 49 mL/min/1.73m??? Low >=60 [facility] Comment on above: Order Comment: Speci men Type: BLOOD SPECIMENOrdering Facility: [facility] Address: [address] [place] [address] Result Comment: Mami mated Glomerular Filtration Rate (eGFR) is calculated using the 2020 CKD-EPI creatinine equation. This equation utilizes serum creatinine, sex, and age as parameters. The creatinine assay has traceable calibration to isotope dilution-mass spectrometry. Refer to KDIGO guidelines for clinical interpretation. In patients with unstable renal function, e.g. those with acute kidney injury, the eGFR may not accurately reflect actual GFR. Performed By: #### 2 4331-1, 79644-2 ####[facility] LABIA [id number] [place] [id number] [place] Glucose [Mass/Vol] 127 mg/dL High 74-99 [facility] Comment on above: Order Comment: Speci men Type: BLOOD SPECIMENOrdering Facility: [facility] Address: [address] [place] [address] Result Comment: The [place] Diabetes Association (ADA) provides guidance for cutoff values for fasting glucose and random glucose. The ADA defines fasting as no caloric intake for at least 8 hours. Fasting plasma glucose results between 100 to 125 mg/dL indicate increased risk for diabetes (prediabetes). Fasting plasma glucose results greater than or equal to 126 mg/dL meet the criteria for diagnosis of diabetes. In the absence of unequivocal hyperglycemia, results should be confirmed by repeat testing. In a patient with classic symptoms of hyperglycemia or hyperglycemic crisis, random plasma glucose results greater than or equal to 200 mg/dL meet the criteria for diagnosis of diabetes. Reference: Standards of Medical Care in Diabetes 2016, [place] Diabetes Association. Diabetes Care. 2016.39(Suppl 1). Performed By: #### 2 4331-1, 27540-6 ####[facility] LABCLIA [id number] [place] [address] [place] Potassium [Moles/Vol] 4.4 mmol/L Normal 3.7-5.1 [facility] Comment on above: Order Comment: Dannii men Type: BLOOD SPECIMENOrdering Facility: [facility] Address: [address] [place] [address] Performed By: #### 2 4331-1, 16143-4 ####[facility] LABCLIA [id number] [place] [address] [place] Protein [Mass/Vol] 6.9 g/dL Normal 6.3-8.0 [facility] Comment on above: Order Comment: Speci men Type: BLOOD SPECIMENOrdering Facility: [facility] Address: [address] [place] [address] Performed By: #### 2 4331-1, 78884-1 ####[facility] LAB[facility] [id number] [place] [address] [place] Sodium [Moles/Vol] 141 mmol/L Normal 136-144 [facility] Comment on above: Order Comment: Dannii men Type: BLOOD SPECIMENOrdering Facility: [facility] Address: [address] [place] [address] Performed By: #### 2 4331-1, 49108-4 ####[facility] LABCLIA [id number] [address] [address] [place] Urea nitrogen [Mass/Vol] 25 mg/dL High 7-21 [facility] Comment on above: Order Comment: Dannii men Type: BLOOD SPECIMENOrdering Facility: [facility] Address: [address] [place] [address] Performed By: #### 2 4331-1, 66574-3 ####[facility] LABIA [id number] [place] [address] [place] HbA1c (Bld)on 07-27-2024 Average glucose Estimated from glycated hemoglobin (Bld) [Mass/Vol] 134 mg/dL Normal [facility] Comment on above: Order Comment: Alfredo men Type: BLOOD SPECIMENOrdering Facility: [facility] Address: [address] [place] [address] Result Comment: eAG: (Estimated average glucose) is a calculated value from HgbA1c and is community health representative of the average blood glucose level in the last 2-3 month period. Performed By: #### 5 5454-3 ####[facility] LABIA [id number] [place] [address] [place] HbA1c (Bld) [Mass fraction] 6.3 % High 4.3-5.6 [facility] Comment on above: Order Comment: Alfredo laurita Type: BLOOD SPECIMENOrdering Facility: [facility] Address: [address] [place] [address] Result Comment: Brian ican Diabetes Association guidelines indicate that patients with HgbA1c in the range 5.7-6.4% are at increased risk for development of diabetes, and intervention by lifestyle modification may be beneficial. HgbA1c greater or equal to 6.5% is considered diagnostic of diabetes. Performed By: #### 5 5454-3 ####[facility] [id number] [place] [address] [place] Lipid 1996 panelon 4 Cholesterol [Mass/Vol] 142 mg/dL Normal <200 [facility] Comment on above: Order Comment: Speci men Type: BLOOD SPECIMENOrdering Facility: [facility] Address: [address] [place] [address] Result Comment: <200 mg/dL, Desirable 200-239 mg/dL, Borderline high >239 mg/dL, High Performed By: #### 2 4331-1, 76322-0 ####[facility] LABCLIA [id number] [address] [place] Cholesterol in HDL [Mass/Vol] 42 mg/dL Normal >39 [facility] Comment on above: Order Comment: Speci men Type: BLOOD SPECIMENOrdering Facility: [facility] Address: [address] [place] [address] Result Comment: 40-5 9 mg/dL, Acceptable >59 mg/dL, High: Negative risk factor for coronary heart disease <40 mg/dL, Low: Positive risk factor for coronary heart disease Performed By: #### 2 4331-1, 20004-0 ####[facility]CLIA [id number] [address] [place] Cholesterol in LDL [Mass/Vol] 80 mg/dL Normal <100 [facility] Comment on above: Order Comment: Speci men Type: BLOOD SPECIMENOrdering Facility: [facility] Address: [address] [place] [address] Result Comment: <100 mg/dL, Optimal 100-129 mg/dL, Near optimal/above optimal 130-159 mg/dL, Borderline high 160-189 mg/dL, High >189 mg/dL, Very high Secondary prevention optimal LDL Cholesterol levels are recommended to be < 70 mg/dL Performed By: #### 2 4331-1, 99564-2 ####[facility] LABCL[facility] [id number] [place] [address] [place] Cholesterol in LDL/Cholesterol in HDL [Mass ratio] 1.90 {ratio} Normal <2.54 [facility] Comment on above: Order Comment: Alfredo laurita Type: BLOOD SPECIMENOrdering Facility: [facility] Address: [address] [place] [address] Result Comment: Refe rence: 1. National Cholesterol Education Program ATP III Guideline At-A-Glance Quick Desk Reference: National Heart, Lung, and Blood Belcher. National Institutes of Health. 2001: NIH Publication No. 01-3305. 2. An International Atherosclerosis Society position paper: global recommendations for the management of dyslipidemia: executive summary, Atherosclerosis. 2014: 232(2):410-413. Performed By: #### 2 4331-1, 48329-7 ####[facility] LABCLIA [id number] [place] [address] [place] Cholesterol in VLDL [Mass/Vol] 20 mg/dL Normal <30 [facility] Comment on above: Order Comment: Alfredo laurita Type: BLOOD SPECIMENOrdering Facility: [facility] Address: [address] [place] [address] Performed By: #### 2 4331-, ####[facility] LABCLIA [id number] [address] [place] Cholesterol non HDL [Mass/Vol] 100 mg/dL Normal <130 [facility] Comment on above: Order Comment: Dannibob shay Type: BLOOD SPECIMENOrdering Facility: [facility] Address: [address] [place] [address] Result Comment: <130 mg/dL, Optimal 130-159 mg/dL, Near optimal/above optimal 160-189 mg/dL, Borderline high 190-219 mg/dL, High >219 mg/dL, Very high Secondary prevention optimal non HDL Cholesterol levels are recommended to be <100 mg/dL Performed By: #### 2 4331-1, 79710-2 ####[facility] [id number] [place] [address] [place] Cholesterol.total/Cho lesterol in HDL [Mass ratio] 3.38 {ratio} Normal <5.10 [facility] Comment on above: Order Comment: Speci men Type: BLOOD SPECIMENOrdering Facility: [facility] Address: [address] [place] [address] Performed By: #### 2 4331-1, 43980-5 ####[facility]CL[facility] [id number] [address] [place] FASTING TIME 10 hrs Normal [facility] Comment on above: Order Comment: Speci men Type: BLOOD SPECIMENOrdering Facility: [facility] Address: [address] [place] [address] Performed By: #### 2 4331-1, 52445-2 ####[facility] LABCL[facility] [id number] [place] [address] [place] Triglyceride [Mass/Vol] 100 mg/dL Normal <150 [facility] Comment on above: Order Comment: Speci men Type: BLOOD SPECIMENOrdering Facility: [facility] Address: [address] [place] [address] Result Comment: <150 mg/dL, Normal 150-199 mg/dL, Borderline high 200-499 mg/dL, High >499 mg/dL, Very high Performed By: #### 2 4331-1, 62056-0 ####[facility] LABCLIA [id number] [place] [address] [place] XR Hand - bilateral PA and L ateral and Obliqueon 09-04-2022 IMPRESSION: Osteoarthritis. Foundry Superintendant: PSCB Transcribe Date/Time: Sep 04 2022 3:32P Dictated by : Kyle VALENTIN MD This examination was interpreted and the report reviewed and electronically signed by: Kyle VALENTIN MD on Sep 04 2022 3:36PM [facility] DIVISION OF RADIOLOGY * * *Final Report* * * DATE OF EXAM: Sep 03 2022 11:21AM WOX 5556 - XR HAND 3V PA/LAT/OBL SATYA / PROCEDURE REASON: multiple diagnoses * * * * Physician Interpretation * * * * EXAMINATION: XR HAND 3V PA/LAT/OBL SATYA HISTORY: Bilateral hand pain Bilateral finger stiffness over that last month without injury VIEWS: PA, oblique and lateral both hands. COMPARISON: No relevant comparison. FINDINGS: No dislocation or acute fracture. Narrowed interphalangeal joint spaces with small osteophytes proximally and distally. Maintained metacarpophalangeal joint spaces. No erosions. DIVISION OF RADIOLOGY Provider, [facility] - 09/04/2022 * * *Final Report* * * DATE OF EXAM: Sep 03 2022 11:21AM WOX 5556 - XR HAND 3V PA/LAT/OBL SATYA / PROCEDURE REASON: multiple diagnoses * * * * Physician Interpretation * * * * EXAMINATION: XR HAND 3V PA/LAT/OBL SATYA HISTORY: Bilateral hand pain Bilateral finger stiffness over that last month without injury VIEWS: PA, oblique and lateral both hands. COMPARISON: No relevant comparison. FINDINGS: No dislocation or acute fracture. Narrowed interphalangeal joint spaces with small osteophytes proximally and distally. Maintained metacarpophalangeal joint spaces. No erosions. IMPRESSION IMPRESSION: Osteoarthritis. Foundry Superintendant: REJI Transcribe Date/Time: Sep 04 2022 3:32P Dictated by : Kyle VALENTIN MD This examination was interpreted and the report reviewed and electronically signed by: Kyle VALENTIN MD on Sep 04 2022 3:36PM EST [facility] XR Hand - bilateral PA and L ateral and ObliqueOrdered By: Ccf Provider on 09-04-2022 [facility] XR Hand - bilateral PA and L ateral and Obliqueon 09-03-2022 Radiology Study observation (narrative) [facility] SYD SCREENINGon 02-12-2022 [facility] XR Knee - right AP and Later sadie 12-22-2021 IMPRESSION: 1. Mild degenerative changes. 2. Mild atherosclerotic disease. Foundry Superintendant: REJI Transcribe Date/Time: Dec 22 2021 5:45A Dictated by : KING TREVINO MD This examination was interpreted and the report reviewed and electronically signed by: KING TREVINO MD on Dec 22 2021 5:47AM [facility] DIVISION OF RADIOLOGY * * *Final Report* * * DATE OF EXAM: Dec 19 2021 3:51PM WOX 5207 - XR KNEE 2V AP/LAT RT / PROCEDURE REASON: multiple diagnoses * * * * Physician Interpretation * * * * CLINICAL INDICATION: Knee pain TECHNIQUE: AP and lateral radiographs of the right knee with inclusion of a single frontal view of the left knee for purposes of comparison/symmetry COMPARISON: None FINDINGS: Right knee: Small suprapatellar joint effusion. Osseous demineralization. No acute fracture or dislocation identified. Mild medial compartmental joint space narrowing. Superior patellar enthesophyte. Mild atherosclerotic calcification of the vasculature. Left knee: Mild medial compartmental joint space narrowing. Mild atherosclerotic calcification of the vasculature. DIVISION OF RADIOLOGY Provider, [facility] - 12/22/2021 * * *Final Report* * * DATE OF EXAM: Dec 19 2021 3:51PM WOX 5207 - XR KNEE 2V AP/LAT RT / PROCEDURE REASON: multiple diagnoses * * * * Physician Interpretation * * * * CLINICAL INDICATION: Knee pain TECHNIQUE: AP and lateral radiographs of the right knee with inclusion of a single frontal view of the left knee for purposes of comparison/symmetry COMPARISON: None FINDINGS: Right knee: Small suprapatellar joint effusion. Osseous demineralization. No acute fracture or dislocation identified. Mild medial compartmental joint space narrowing. Superior patellar enthesophyte. Mild atherosclerotic calcification of the vasculature. Left knee: Mild medial compartmental joint space narrowing. Mild atherosclerotic calcification of the vasculature. IMPRESSION IMPRESSION: 1. Mild degenerative changes. 2. Mild atherosclerotic disease. Foundry Superintendant: REJI Transcribe Date/Time: Dec 22 2021 5:45A Dictated by : KING TREVINO MD This examination was interpreted and the report reviewed and electronically signed by: KING TREVINO MD on Dec 22 2021 5:47AM EST [facility] XR Knee - right AP and Later alOrdered By: Ccf Provider on 12-22-2021 [facility] XR Knee - right AP and Later sadie 12-19-2021 Radiology Study observation (narrative) [facility] XR Pelvis and Hip - left AP and Lateral frogon 10-31-2021 IMPRESSION: Postsurgical change. No complication. Osteoarthrosis of the hips. Foundry Superintendant: PSCRigo Transcribe Date/Time: Oct 31 2021 4:41P Dictated by : LEXIE CAMPA MD This examination was interpreted and the report reviewed and electronically signed by: LEXIE CAMPA MD on Oct 31 2021 4:42PM [facility] DIVISION OF RADIOLOGY * * *Final Report* * * DATE OF EXAM: Oct 31 2021 4:24PM WOX 5351 - XR HIP 3V PELV+ AP/LAT LT / PROCEDURE REASON: Left hip pain * * * * Physician Interpretation * * * * Pelvis and left hip radiograph HISTORY: 86 years old Clinical information: Left hip pain Left anterior hip pain x 2-3 weeks without injury TECHNIQUE: Images: XR HIP 3V PELV+ AP/LAT LT Comparison: None. RESULT: Findings: Left-sided dynamic hip screw. Additional threaded screw extending through the intertrochanteric region of the left femur into the left femoral head. Alignment appears intact. No perihardware osteolysis. No hardware fracture. Superior left hip joint space is maintained. Osteophyte formation on the left acetabulum. Superior right hip joint space is maintained. Osteophyte formation involving the superior acetabulum. No fracture or dislocation of the hips. Remainder of the imaged bony pelvis appears to be intact. Pubic symphysis and SI joints are intact. DIVISION OF RADIOLOGY Provider, [facility] - 10/31/2021 * * *Final Report* * * DATE OF EXAM: Oct 31 2021 4:24PM WOX 5351 - XR HIP 3V PELV+ AP/LAT LT / PROCEDURE REASON: Left hip pain * * * * Physician Interpretation * * * * Pelvis and left hip radiograph HISTORY: 86 years old Clinical information: Left hip pain Left anterior hip pain x 2-3 weeks without injury TECHNIQUE: Images: XR HIP 3V PELV+ AP/LAT LT Comparison: None. RESULT: Findings: Left-sided dynamic hip screw. Additional threaded screw extending through the intertrochanteric region of the left femur into the left femoral head. Alignment appears intact. No perihardware osteolysis. No hardware fracture. Superior left hip joint space is maintained. Osteophyte formation on the left acetabulum. Superior right hip joint space is maintained. Osteophyte formation involving the superior acetabulum. No fracture or dislocation of the hips. Remainder of the imaged bony pelvis appears to be intact. Pubic symphysis and SI joints are intact. IMPRESSION IMPRESSION: Postsurgical change. No complication. Osteoarthrosis of the hips. Foundry Superintendant: REJI Transcribe Date/Time: Oct 31 2021 4:41P Dictated by : LEXIE CAMPA MD This examination was interpreted and the report reviewed and electronically signed by: LEXIE CAMPA MD on Oct 31 2021 4:42PM EST [facility] Radiology Study observation (narrative) [facility] XR Pelvis and Hip - left AP and Lateral frogOrdered By: Ccf Provider on 10-31-2021 [facility] SYD MEREDITH W [place] 02-06 [facility] CNNURSEon 11-07-2020 CNNURSE Nurse Visit (COVAMD) LUCILLE THURMAN ([id number]) 1935 F Date Time Provider Department 11/07/20 BERTA BROWNE, VLADIMIR NAZARIO During your visit today, we recorded the following information about you: Allergies As of Date: 11/07/2020 Noted Allergy Reaction METFORMIN 03/13/2013 6 - Diarrhea MORPHINE 02/14/2016 8 - GI Upset OXYCODONE 02/14/2016 8 - GI Upset PREVACID (LANSOPRAZOLE) 07/20/2005 Date Reviewed: 05/16/2020 Reviewed by: Radha ([facility]) ZEV Morris - Fully Assessed Order(s):IMshopping SARS-COV-2 VACCINE 2D DOSE APPT [[id number]] Order #: [id number] Prescriptions as of 11/07/2020 Sig: ATORVASTATIN 80 MG TABLET Take 1 tablet by mouth daily * LISINOPRIL 40 MG TABLET Take 1 tablet by mouth once d* PIOGLITAZONE 15 MG TABLET Take 1 tablet by mouth once d* OMEPRAZOLE 20 MG CAPSULE,VALERIE* take 1 capsule by mouth once * HYDROCHLOROTHIAZIDE 12.5 MG C* Take 1 capsule by mouth once * X GLIMEPIRIDE 4 MG TABLET Take 1 tablet by mouth daily * BLOOD GLUCOSE TEST STRIPS Test blood sugar(s) 1 times d* X ALENDRONATE 70 MG TABLET Take 1 tablet by mouth one ti* X IBUPROFEN 600 MG TABLET Take 1 tablet by mouth every * POLYETHYLENE GLYCOL 3350 17 G* Take one scoop daily with gla* MULTIVITAMIN AND MINERAL ORAL Take 1 tablet by mouth once d* FREESTYLE LANCETS 28 GAUGE use daily FREESTYLE CONTROL SOLUTION use as directed Problem List As Of Date 11/07/2020 Noted Resolved 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 *07/21/2005 DIFFUS CYSTIC MASTOPATHY [N60.19] 07/21/2005 Chronic cough [R05] 08/08/2009 08/30/2015 Essential hypertension, benign [I10] 07/30/2010 Lumbar disc disease with radiculopathy [M51.16] 02/25/2011 Lateral epicondylitis [M77.10] 08/18/2011 07/01/2015 Vitamin D deficiency [E55.9] 08/20/2011 Contact eczematous dermatitis [L25.9] 03/09/2013 03/22/2019 Rash and other nonspecific skin eruption [R21] 03/09/2013 09/29/2018 Actinic keratosis [L57.0] 03/09/2013 03/22/2019 Actinic skin damage [L57.8] 03/09/2013 03/22/2019 Xerosis cutis [L85.3] 03/09/2013 03/22/2019 Carpal tunnel syndrome [G56.00] 09/29/2013 03/22/2019 Gall bladder stones [K80.20] 06/29/2014 10/19/2014 Gall bladder polyp [K82.4] 06/29/2014 10/19/2014 RUQ pain [R10.11] 06/29/2014 10/19/2014 Arteriosclerosis of both carotid arteries [I65.*10/19/2014 Forgetfulness [R68.89] 08/30/2015 Hyperlipidemia LDL goal <100 [E78.5] 02/21/2016 Osteoporosis [M81.0] 03/17/2016 Personal history of colonic polyps [Z86.010] 10/13/2016 Trochanteric bursitis of left hip [M70.62] 12/07/2016 03/22/2019 Acute blood loss anemia [D62] 09/28/2017 09/29/2018 Closed fracture of hip (HCC) [S72.009A] 09/28/2017 03/22/2019 Acid reflux [K21.9] 09/28/2017 Stress incontinence [N39.3] 09/28/2017 DDD (degenerative disc disease), cervical [M50.*09/29/2018 Encounter Status:Open [facility] Vital Signs Date Time Vital Sign Value Performing Clinician Sarah hansen 01-29-2025 08:52-0400 Body mass index (BMI) [Ratio] 27.46 kg/m2 Imtiaz Hodge PETROLEUM SUPPLY SPECIALIST.PUBLIC RELATIONS OFFICER Work Phone: [facility] 01-29-2025 08:52-0400 Body weight 70.31 kg Imtiaz Hodge PETROLEUM SUPPLY SPECIALIST.PUBLIC RELATIONS OFFICER Work Phone: [facility] 01-29-2025 08:52-0400 Diastolic blood pressure 75 mm[Hg] Imtiaz Hodge PETROLEUM SUPPLY SPECIALIST.PUBLIC RELATIONS OFFICER Work Phone: [facility] 01-29-2025 08:52-0400 Heart rate 67 /min Imtiaz Hodge PETROLEUM SUPPLY SPECIALIST.PUBLIC RELATIONS OFFICER Work Phone: [facility] 01-29-2025 08:52-0400 Respiratory rate 16 /min Imtiaz Hodge PETROLEUM SUPPLY SPECIALIST.PUBLIC RELATIONS OFFICER Work Phone: [facility] 01-29-2025 08:52-0400 SaO2% (BldA) [Mass fraction] 99 % Imtiaz Hodge PETROLEUM SUPPLY SPECIALIST.PUBLIC RELATIONS OFFICER Work Phone: [facility] 01-29-2025 08:52-0400 Systolic blood pressure 136 mm[Hg] Imtiaz Hodge PETROLEUM SUPPLY SPECIALIST.PUBLIC RELATIONS OFFICER Work Phone: [facility] 10-11-2024 13:53-0500 Body mass index (BMI) [Ratio] 27.34 kg/m2 Treva Sandoval PETROLEUM SUPPLY SPECIALIST.PUBLIC RELATIONS OFFICER Work Phone: [facility] 10-11-2024 13:53-0500 Body weight 70 kg Treva Tannhof PETROLEUM SUPPLY SPECIALIST.PUBLIC RELATIONS OFFICER Work Phone: [facility] 10-11-2024 13:53-0500 Diastolic blood pressure 68 mm[Hg] Treva Tannhof PETROLEUM SUPPLY SPECIALIST.PUBLIC RELATIONS OFFICER Work Phone: [facility] 10-11-2024 13:53-0500 Heart rate 71 /min Treva Tannhof PETROLEUM SUPPLY SPECIALIST.PUBLIC RELATIONS OFFICER Work Phone: [facility] 10-11-2024 13:53-0500 Respiratory rate 16 /min Treva Tannhof PETROLEUM SUPPLY SPECIALIST.PUBLIC RELATIONS OFFICER Work Phone: [facility] 10-11-2024 13:53-0500 SaO2% (BldA) [Mass fraction] 100 % Treva Tannhof PETROLEUM SUPPLY SPECIALIST.PUBLIC RELATIONS OFFICER Work Phone: [facility] 10-11-2024 13:53-0500 Systolic blood pressure 140 mm[Hg] Treva Tannhof PETROLEUM SUPPLY SPECIALIST.PUBLIC RELATIONS OFFICER Work Phone: [facility] 09-14-2024 11:30-0500 Body mass index (BMI) [Ratio] 28.52 kg/m2 Treva Tannhof PETROLEUM SUPPLY SPECIALIST.PUBLIC RELATIONS OFFICER Work Phone: [facility] 09-14-2024 11:30-0500 Body weight 73.03 kg Treva Tannhof PETROLEUM SUPPLY SPECIALIST.PUBLIC RELATIONS OFFICER Work Phone: [facility] 09-14-2024 11:30-0500 Diastolic blood pressure 73 mm[Hg] Treva Tannhof PETROLEUM SUPPLY SPECIALIST.PUBLIC RELATIONS OFFICER Work Phone: [facility] 09-14-2024 11:30-0500 Heart rate 75 /min Treva Tannhof PETROLEUM SUPPLY SPECIALIST.PUBLIC RELATIONS OFFICER Work Phone: [facility] 09-14-2024 11:30-0500 SaO2% (BldA) [Mass fraction] 98 % Treva Tannhof PETROLEUM SUPPLY SPECIALIST.PUBLIC RELATIONS OFFICER Work Phone: [facility] 09-14-2024 11:30-0500 Systolic blood pressure 155 mm[Hg] Treva Tannhof PETROLEUM SUPPLY SPECIALIST.PUBLIC RELATIONS OFFICER Work Phone: [facility] 08-28-2024 14:54-0500 Body height 160 cm Treva Tannhof PETROLEUM SUPPLY SPECIALIST.PUBLIC RELATIONS OFFICER Work Phone: [facility] 08-28-2024 14:54-0500 Body mass index (BMI) [Ratio] 27.81 kg/m2 Treva Tannhof PETROLEUM SUPPLY SPECIALIST.PUBLIC RELATIONS OFFICER Work Phone: [facility] 08-28-2024 14:54-0500 Body weight 71.22 kg Treva Tannhof PETROLEUM SUPPLY SPECIALIST.PUBLIC RELATIONS OFFICER Work Phone: [facility] 08-28-2024 14:54-0500 Diastolic blood pressure 62 mm[Hg] Treva Tannhof PETROLEUM SUPPLY SPECIALIST.PUBLIC RELATIONS OFFICER Work Phone: [facility] 08-28-2024 14:54-0500 Heart rate 73 /min Treva Tannhof PETROLEUM SUPPLY SPECIALIST.PUBLIC RELATIONS OFFICER Work Phone: [facility] 08-28-2024 14:54-0500 Systolic blood pressure 168 mm[Hg] Treva Tannhof PETROLEUM SUPPLY SPECIALIST.PUBLIC RELATIONS OFFICER Work Phone: [facility] 07-28-2024 12:24-0500 Diastolic blood pressure 70 mm[Hg] Treva Tannhof PETROLEUM SUPPLY SPECIALIST.PUBLIC RELATIONS OFFICER Work Phone: [facility] 07-28-2024 12:24-0500 Systolic blood pressure 158 mm[Hg] Treva Tannhof PETROLEUM SUPPLY SPECIALIST.PUBLIC RELATIONS OFFICER Work Phone: [facility] 07-28-2024 09:14-0500 Body mass index (BMI) [Ratio] 27.96 kg/m2 Treva Tannhof PETROLEUM SUPPLY SPECIALIST.PUBLIC RELATIONS OFFICER Work Phone: [facility] 07-28-2024 09:14-0500 Body weight 71.6 kg Treva Tannhof PETROLEUM SUPPLY SPECIALIST.PUBLIC RELATIONS OFFICER Work Phone: [facility] 07-28-2024 09:14-0500 Heart rate 78 /min Treva Tannhof PETROLEUM SUPPLY SPECIALIST.PUBLIC RELATIONS OFFICER Work Phone: [facility] 07-28-2024 09:14-0500 Respiratory rate 16 /min Treva Tannhof PETROLEUM SUPPLY SPECIALIST.PUBLIC RELATIONS OFFICER Work Phone: [facility] 07-28-2024 09:14-0500 SaO2% (BldA) [Mass fraction] 98 % Treva Tannhof PETROLEUM SUPPLY SPECIALIST.PUBLIC RELATIONS OFFICER Work Phone: [facility] 01-12-2024 09:22-0400 Body mass index (BMI) [Ratio] 27.99 kg/m2 Treav Tannhof PETROLEUM SUPPLY SPECIALIST.PUBLIC RELATIONS OFFICER Work Phone: [facility] 01-12-2024 09:22-0400 Body weight 71.67 kg Treva Tannhof PETROLEUM SUPPLY SPECIALIST.PUBLIC RELATIONS OFFICER Work Phone: [facility] 01-12-2024 09:22-0400 Diastolic blood pressure 70 mm[Hg] Treva Tannhof PETROLEUM SUPPLY SPECIALIST.PUBLIC RELATIONS OFFICER Work Phone: [facility] 01-12-2024 09:22-0400 Heart rate 77 /min Treva Tannhof PETROLEUM SUPPLY SPECIALIST.PUBLIC RELATIONS OFFICER Work Phone: [facility] 01-12-2024 09:22-0400 Respiratory rate 16 /min Treva Tannhof PETROLEUM SUPPLY SPECIALIST.PUBLIC RELATIONS OFFICER Work Phone: [facility] 01-12-2024 09:22-0400 SaO2% (BldA) [Mass fraction] 98 % Treva Tannhof PETROLEUM SUPPLY SPECIALIST.PUBLIC RELATIONS OFFICER Work Phone: [facility] 01-12-2024 09:22-0400 Systolic blood pressure 130 mm[Hg] Treva Tannhof PETROLEUM SUPPLY SPECIALIST.PUBLIC RELATIONS OFFICER Work Phone: [facility] 11-26-2022 08:28-0500 Body weight 73.48 kg Treva Tannhof PETROLEUM SUPPLY SPECIALIST.PUBLIC RELATIONS OFFICER Work Phone: [facility] 11-26-2022 08:28-0500 Diastolic blood pressure 80 mm[Hg] Treva Tannhof PETROLEUM SUPPLY SPECIALIST.PUBLIC RELATIONS OFFICER Work Phone: [facility] 11-26-2022 08:28-0500 Heart rate 78 /min Treva Tannhof PETROLEUM SUPPLY SPECIALIST.PUBLIC RELATIONS OFFICER Work Phone: [facility] 11-26-2022 08:28-0500 Respiratory rate 16 /min Treva Tannhof PETROLEUM SUPPLY SPECIALIST.PUBLIC RELATIONS OFFICER Work Phone: [facility] 11-26-2022 08:28-0500 SaO2% (BldA) [Mass fraction] 98 % Treva Ramosf PETROLEUM SUPPLY SPECIALIST.PUBLIC RELATIONS OFFICER Work Phone: [facility] 11-26-2022 08:28-0500 Systolic blood pressure 140 mm[Hg] Treva Ramosf PETROLEUM SUPPLY SPECIALIST.PUBLIC RELATIONS OFFICER Work Phone: [facility] 11-17-2022 13:58-0500 Body temperature 97.3 [degF] Rui Mendez MD Work Phone: [facility] 11-17-2022 13:58-0500 Body weight 72.58 kg Rui Mendez MD Work Phone: [facility] 11-17-2022 13:58-0500 Diastolic blood pressure 70 mm[Hg] Rui Mendez MD Work Phone: [facility] 11-17-2022 13:58-0500 Heart rate 73 /min Rui Mendez MD Work Phone: [facility] 11-17-2022 13:58-0500 Respiratory rate 16 /min Rui Mendez MD Work Phone: [facility] 11-17-2022 13:58-0500 SaO2% (BldA) [Mass fraction] 96 % Rui Mendez MD Work Phone: [facility] 11-17-2022 13:58-0500 Systolic blood pressure 126 mm[Hg] Rui Mendez MD Work Phone: [facility] 09-03-2022 10:36-0500 Body weight 71.22 kg Treva Sandoval PETROLEUM SUPPLY SPECIALIST.PUBLIC RELATIONS OFFICER Work Phone: [facility] 09-03-2022 10:36-0500 Diastolic blood pressure 68 mm[Hg] Treva Sandoval PETROLEUM SUPPLY SPECIALIST.PUBLIC RELATIONS OFFICER Work Phone: [facility] 09-03-2022 10:36-0500 Heart rate 79 /min Treva Sandoval PETROLEUM SUPPLY SPECIALIST.PUBLIC RELATIONS OFFICER Work Phone: [facility] 09-03-2022 10:36-0500 Respiratory rate 16 /min Treva Sandoval APRN.PUBLIC RELATIONS OFFICER Work Phone: [facility] 09-03-2022 10:36-0500 SaO2% (BldA) [Mass fraction] 97 % Treva Sandoval PETROLEUM SUPPLY SPECIALIST.PUBLIC RELATIONS OFFICER Work Phone: [facility] 09-03-2022 10:36-0500 Systolic blood pressure 160 mm[Hg] Treva Sandoval PETROLEUM SUPPLY SPECIALIST.PUBLIC RELATIONS OFFICER Work Phone: [facility] 12-19-2021 14:58-0400 Body weight 73.48 kg Khari Sunshine APRN.PUBLIC RELATIONS OFFICER , DNP Work Phone: [facility] 12-19-2021 14:58-0400 Diastolic blood pressure 68 mm[Hg] Khari Sunshine PETROLEUM SUPPLY SPECIALIST.PUBLIC RELATIONS OFFICER, DNP Work Phone: [facility] 12-19-2021 14:58-0400 Heart rate 73 /min Khari Sunshine PETROLEUM SUPPLY SPECIALIST.PUBLIC RELATIONS OFFICER , DNP Work Phone: [facility] 12-19-2021 14:58-0400 Respiratory rate 16 /min Khari Sunshine PETROLEUM SUPPLY SPECIALIST.PUBLIC RELATIONS OFFICER , DNP Work Phone: [facility] 12-19-2021 14:58-0400 SaO2% (BldA) [Mass fraction] 98 % Khari Sunshine PETROLEUM SUPPLY SPECIALIST.PUBLIC RELATIONS OFFICER, DNP Work Phone: [facility] 12-19-2021 14:58-0400 Systolic blood pressure 126 mm[Hg] Khari Blaz PETROLEUM SUPPLY SPECIALIST.PUBLIC RELATIONS OFFICER, DNP Work Phone: [facility] Encounters Encounter Date Encounter Type Care Provider Facility Start: 02-22-2025 End: 02-22-2025 ambulatory Cathy Dugan RN [employer] Comment on above: Bi-Weekly Outreach ( Recurring) for Chronic Disease Management Start: 01-29-2025 End: 01-29-2025 Patient encounter procedure Imtiaz Hodge APRN.PUBLIC RELATIONS OFFICER [facility] Comment on above: Controlled type 2 di abetes mellitus with stage 3 chronic kidney disease, without long-term current use of insulin (HCC) (Primary Dx); Congestive heart failure, unspecified HF chronicity, unspecified heart failure type (HCC); Stage 3 chronic kidney disease, unspecified whether stage 3a or 3b CKD (HCC); Essential hypertension, benign; Skin lesion; Screening for depression; Encounter for screening examination for other mental health and behavioral disorders Start: 01-29-2025 End: 01-29-2025 ambulatory ALLIE STANTON Facility:[facility] Start: 01-23-2025 End: 01-23-2025 [facility] Start: 01-01-2025 End: 01-01-2025 ambulatory [place] Bashir [place] [place] Start: 12-18-2024 End: 12-19-2024 Refill Treva Sandoval APRN.PUBLIC RELATIONS OFFICER Work Phone: [facility] Comment on above: Refill Request This is Deanna Toribio Start: 11-16-2024 End: 11-16-2024 Refill Imtiaz Hodge APRN.PUBLIC RELATIONS OFFICER Work Phone: [facility] Comment on above: Refill Request Start: 10-30-2024 End: 10-30-2024 ambulatory JONAH BASHIR MD Facility[facility] Start: 10-30-2024 End: 10-30-2024 Patient encounter procedure JONAH BASHIR MD [facility] Start: 10-26-2024 End: 10-26-2024 ambulatory Iza Jameson RN Work Phone: [employer] Start: 10-26-2024 End: 10-26-2024 Telephone follow-up Iza Jameson RN Work Phone: [employer] Comment on above: Transition Of Care ( Follow up day 18) Weekly phone contact (Recurring) for Transitional Care Management Start: 10-20-2024 End: 10-20-2024 Refill Allie Stanton MD Work Phone: [facility] Comment on above: Refill Request Orders (Handicap ruiz card) Start: 10-19-2024 End: 10-19-2024 Patient Outreach Chinyere Pabon RN Work Phone: [employer] Comment on above: Weekly phone contact (Recurring) for Transitional Care Management Start: 10-16-2024 End: 10-16-2024 ambulatory [facility] Facility:[facility] Start: 10-14-2024 End: 10-18-2024 ambulatory Treva Sandoval APRN.CNP Work Phone: [facility] [place] Comment on above: Kidney doctor Start: 10-12-2024 End: 10-12-2024 Patient Outreach Chinyere Pabon RN Work Phone: [employer] Comment on above: Transition Of Care ( TCM / [facility] dc 10/08/24) Initial phone contact for Transitional Care Management Start: 10-11-2024 End: 10-11-2024 Office outpatient visit 25 minutes Treva Sandoval APRN.CNP Work Phone: [facility] [place] Comment on above: Hospital discharge f ollow-up (Primary Dx); Congestive heart failure, unspecified HF chronicity, unspecified heart failure type (HCC); Elevated troponin; Essential hypertension, benign; Stage 3 chronic kidney disease, unspecified whether stage 3a or 3b CKD (HCC); 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 3 chronic kidney disease, without long-term current use of insulin (HCC) Start: 10-11-2024 End: 10-11-2024 ambulatory [facility] Facility:[facility] Start: 10-10-2024 End: 10-10-2024 ambulatory ALLIE Linares [facility] Facility:[facility] Start: 10-09-2024 End: 01-17-2025 Telephone encounter Treva Sandoval APRN.CNP Work Phone: [facility] [place] Comment on above: Refill Request Start: 10-05-2024 ambulatory Jonah Bashir [facility] Start: 10-04-2024 End: 10-08-2024 Evaluation and management of inpatient Jenifer Ambrosio Facility:[facility] Start: 10-04-2024 End: 10-04-2024 ambulatory Allie Stanton MD Work Phone: [facility] [place] Comment on above: Breathing Problem Start: 09-18-2024 End: 09-27-2024 Telephone encounter Allie Stanton MD Work Phone: [facility] [place] Comment on above: Patient Update Start: 09-14-2024 End: 09-14-2024 ambulatory [facility] Facility:[facility] Start: 09-14-2024 End: 09-14-2024 Patient encounter procedure Treva Sandoval APRN.PUBLIC RELATIONS OFFICER [facility] Comment on above: Bilateral leg edema (Primary Dx); Essential hypertension, benign; Stage 3 chronic kidney disease, unspecified whether stage 3a or 3b CKD (HCC); Hyperlipidemia LDL goal <100; 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 3 chronic kidney disease, without long-term current use of insulin (HCC); Dry eye Start: 08-28-2024 End: 08-28-2024 Patient encounter procedure Treva Sandoval APRN.PUBLIC RELATIONS OFFICER Work Phone: [facility] Comment on above: Essential hypertensi on, benign (Primary Dx); Stage 3 chronic kidney disease, unspecified whether stage 3a or 3b CKD (HCC) Start: 08-28-2024 End: 08-28-2024 ambulatory [facility] Facility:[facility] Start: 07-28-2024 End: 07-28-2024 Patient encounter procedure Treva Sandoval APRN.PUBLIC RELATIONS OFFICER [facility] Comment on above: Controlled type 2 di abetes mellitus with stage 3 chronic kidney disease, without long-term current use of insulin (HCC) (Primary Dx); Essential hypertension, benign; Stage 3 chronic kidney disease, unspecified whether stage 3a or 3b CKD (HCC); Hyperlipidemia LDL goal <100; Gastroesophageal reflux disease without esophagitis Start: 07-28-2024 End: 07-28-2024 ambulatory Treva Sandoval APRN.PUBLIC RELATIONS OFFICER Work Phone: [facility] [place] Start: 07-27-2024 End: 07-27-2024 ambulatory [facility] Facility:[facility] Start: 03-17-2024 Refill Allie snell MD Work Phone: [facility] [place] Comment on above: Refill Request Start: 03-16-2024 Refill Imtiaz NASSAR RN.PUBLIC RELATIONS OFFICER Work Phone: [facility] [place] Comment on above: Refill Request Start: 02-02-2024 Refill Allie snell MD Work Phone: [facility] [place] Comment on above: Refill Request Start: 01-12-2024 End: 01-12-2024 Patient encounter procedure Treva Sandoval APRN.PUBLIC RELATIONS OFFICER [facility] Comment on above: Controlled type 2 di abetes mellitus with stage 3 chronic kidney disease, without long-term current use of insulin (HCC) (Primary Dx); Essential hypertension, benign; Gastroesophageal reflux disease without esophagitis; Hyperlipidemia LDL goal <100; Bilateral hand pain Start: 04-15-2023 Refill Allie snell MD Work Phone: [facility] Comment on above: Refill Request Start: 02-17-2023 Telephone encounter Allie nielsen MD Work Phone: [facility] Comment on above: Rx refill; not on cu rrent med list Start: 01-25-2023 Refill Allie snell MD [facility] Phone: [facility] Comment on above: Refill Request Start: 12-18-2022 Refill Allie snell MD [facility] Phone: [facility] Comment on above: Refill Request Start: 11-26-2022 End: 11-26-2022 Patient encounter procedure Treva Sandoval APRN.PUBLIC RELATIONS OFFICER [facility] Comment on above: Controlled type 2 di abetes mellitus with stage 3 chronic kidney disease, without long-term current use of insulin (HCC) (Primary Dx); Essential hypertension, benign; Hyperlipidemia LDL goal <100; Gastroesophageal reflux disease with esophagitis without hemorrhage; Arthritis of hand Start: 11-17-2022 End: 11-17-2022 Patient encounter procedure Rui Mendez MD Work Phone: [facility] Comment on above: Sciatica, right side (Primary Dx) Start: 10-19-2022 Refill Allie snell MD Work Phone: [facility] Comment on above: Refill Request (PER PATIENT SHE IS STILL TAKING AMARYL 1 MG TABLET ONCE DAILY NO LONGER TAKING THE 2 MG THIS WAS REDUCED BY TREVA ON 09/03/2022 PER PATIENT//); Refill Request Start: 10-07-2022 Telephone encounter Allie nielsen MD Work Phone: [facility] Comment on above: Medication Request ( Meloxicam); Nurse Triage Call (Questions on the medication and her symptoms) Start: 09-08-2022 ambulatory [facility] Comment on above: xray results Start: 09-08-2022 E-mail encounter carlos m caregiver [facility] Provider [facility] Start: 09-08-2022 Telephone encounter Treva barber PETROLEUM SUPPLY SPECIALIST.PUBLIC RELATIONS OFFICER Work Phone: [facility] Comment on above: Results (X-ray hands ) Start: 09-03-2022 End: 09-03-2022 Subsequent hospital visit by physician Xr [facility] [place] Work Phone: Radiology Comment on above: Bilateral hand pain [M79.641, M79.642] Start: 09-03-2022 End: 09-03-2022 Patient encounter procedure Treva Sandoval APRN.PUBLIC RELATIONS OFFICER Work Phone: [facility] Comment on above: Bilateral hand pain (Primary Dx) Start: 02-12-2022 Documentation procedure Mammog darwin Coordinator [facility] Start: 02-12-2022 Letter encounter Mammography Coordinator [facility] Start: 02-12-2022 End: 02-12-2022 Subsequent hospital visit by physician Screen Mammo [facility] Comment on above: Encounter for screen ing mammogram for malignant neoplasm of breast [Z12.31] Start: 12-29-2021 Telephone encounter Khari mckeon PETROLEUM SUPPLY SPECIALIST.PUBLIC RELATIONS OFFICER, DNP Work Phone: [facility] Comment on above: Script for handicap placard Start: 12-19-2021 End: 12-19-2021 Subsequent hospital visit by physician Vu [facility] [place] Work Phone: Radiology Comment on above: Chronic pain of righ t knee [M25.561, G89.29] Start: 12-19-2021 End: 12-19-2021 Patient encounter procedure Khari Sunshine APRN.SHAHEEN CHANG Work Phone: [facility] Comment on above: Controlled type 2 di abetes mellitus without complication, without long-term current use of insulin (HCC) (Primary Dx); Stage 3b chronic kidney disease (HCC); Chronic pain of right knee; Encounter for screening mammogram for malignant neoplasm of breast Start: 10-31-2021 End: 10-31-2021 Subsequent hospital visit by physician Vu [facility] [place] Work Phone: Radiology Comment on above: Left hip pain [M25.5 52] Start: 01-28-2021 Telephone encounter Khari mckeon APRN.CNP, DNP Work Phone: [facility] Comment on above: Mammogram order Start: 04-26-2018 End: 07-05-2018 Patient encounter NISHA DONAHUE Facility:[facility] Procedures Date Procedure Procedure Detail Performing Clinician Start: 01-29-2025 Adult depression scr eening assessment Imtiaz Hodge APRN.CNP Work Phone: Start: 01-12-2024 Adult depression scr eening assessment [facility] Work Phone: Start: 09-03-2022 Radex hand minimum 3 views Treva Sandoval APRN.CNP Work Phone: Start: 02-12-2022 Screening mammograph y bi 2-view breast inc cad Khari Sunshine APRN.CNP, DNP Work Phone: Start: 12-19-2021 Radiologic examinati on knee 1/2 views Khari Sunshine APRN.CNP, DNP Work Phone: Start: 10-31-2021 Radex hip unilateral with pelvis 2-3 views Khari Sunshine APRN.PUBLIC RELATIONS OFFICER, DNP Work Phone: Start: 09-20-2014 Cholecystectomy JONAH BASHIR MD Start: 09-20-2014 Colonoscopy JONAH SOLO MD Appendectomy JONAH BASHIR MD Carpal tunnel syndro me (disorder) JONAH BASHIR MD Comment on above: right Tonsillectomy and adenoidectomy JONAH BASHIR MD Total shoulder replacement A MONICA BASHIR MD Comment on above: & revision Plan of Treatment Date Care Activity Detail Author Start: 01-29-2026 Anxiety Screening Anxiety Screening [facility] Start: 01-29-2026 Depression Screening Depression Scre ening [facility] Start: 01-23-2026 Hepatitis B surface antibody level LDL Cholesterol [facility] Start: 09-19-2025 Glaucoma screening Dilated Retinal E xam [facility] Start: 08-10-2025 End: 08-10-2025 Patient encounter procedure 08/10/2025 9:20 AM EST Office Visit Family [facility] [address], [place] [id number] Imtiaz Hodge APRN.PUBLIC RELATIONS OFFICER [address] [place], [place] [id number] 6 month follow up [facility] Comment on above: 6 month follow up Start: 08-01-2025 End: 10-31-2025 CBC W Auto Differential panel - Blood COMPLETE BLOOD COUNT AND DIFFERENTIAL Lab Routine 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 3 chronic kidney disease, without long-term current use of insulin (HCC) Expected: 08/01/2025 (Approximate), Expires: 10/31/2025 [facility] Comment on above: Expected: 08/01/2025 (Approximate), Expires: 10/31/2025 Start: 08-01-2025 End: 10-31-2025 Comprehensive metabolic 2000 panel - Serum or Plasma COMPREHENSIVE METABOLIC PANEL Lab Routine 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 3 chronic kidney disease, without long-term current use of insulin (HCC) Stage 3 chronic kidney disease, unspecified whether stage 3a or 3b CKD (HCC) Essential hypertension, benign Expected: 08/01/2025 (Approximate), Expires: 10/31/2025 [facility] Comment on above: Expected: 08/01/2025 (Approximate), Expires: 10/31/2025 Start: 08-01-2025 End: 10-31-2025 Hemoglobin A1c in Blood HEMOGLOBIN A1C Lab Routine 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 3 chronic kidney disease, without long-term current use of insulin (HCC) Expected: 08/01/2025 (Approximate), Expires: 10/31/2025 [facility] Work Phone: Comment on above: Expected: 08/01/2025 (Approximate), Expires: 10/31/2025 Start: 08-01-2025 End: 10-31-2025 Lipid 1996 panel - Serum or Plasma LIPID PANEL, FASTING Lab Routine 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 3 chronic kidney disease, without long-term current use of insulin (HCC) Congestive heart failure, unspecified HF chronicity, unspecified heart failure type (HCC) Expected: 08/01/2025 (Approximate), Expires: 10/31/2025 [facility] Comment on above: Expected: 08/01/2025 (Approximate), Expires: 10/31/2025 Start: 07-28-2025 Covid-19 Vaccine ( season) Covid-19 Vaccine () [facility] Comment on above: Postponed from 05/21 (Declined at this time) Start: 07-27-2025 Hepatitis B screening Urine Al bumin:Creatinine Ratio [facility] Start: 07-27-2025 Hepatitis B surface antibody level LDL Cholesterol [facility] Start: 07-26-2025 Hemoglobin A1c measurement HbA1C [facility] Start: 03-19-2025 Influenza vaccination Influenza Vacc ine (#1) [facility] Comment on above: Postponed from 05/21 (Declined at this time) Start: 01-29-2025 End: 01-29-2025 Patient encounter procedure [facility] [place] Comment on above: 6 month follow with labs 6 month follow with labs/[facility] Start: 01-25-2025 End: 04-26-2025 Comprehensive metabolic 2000 panel - Serum or Plasma COMPREHENSIVE METABOLIC PANEL Lab Routine Hyperlipidemia LDL goal <100 Stage 3 chronic kidney disease, unspecified whether stage 3a or 3b CKD (HCC) Expected: 01/25/2025, Expires: 04/26/2025 [facility] Work Phone: Comment on above: Expected: 01/25/2025 , Expires: 04/26/2025 Start: 01-25-2025 End: 04-26-2025 Hemoglobin A1c in Blood HEMOGLOBIN A1C Lab Routine 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 3 chronic kidney disease, without long-term current use of insulin ([facility]) Expected: 01/25/2025, Expires: 04/26/2025 [facility] Comment on above: Expected: 01/25/2025 , Expires: 04/26/2025 Start: 01-25-2025 End: 04-26-2025 Lipid 1996 panel - Serum or Plasma LIPID PANEL BASIC Lab Routine Hyperlipidemia LDL goal <100 Expected: 01/25/2025, Expires: 04/26/2025 [facility] Comment on above: Expected: 01/25/2025 , Expires: 04/26/2025 Start: 01-24-2025 Hemoglobin A1c measurement HbA1C [facility] Start: 01-11-2025 Anxiety Screening Anxiety Screening [facility] Start: 01-11-2025 Covid-19 Vaccine ( season) Covid-19 Vaccine () [facility] Comment on above: Postponed from 05/21 (Declined at this time) Start: 01-11-2025 Depression Screening Depression Scre ening [facility] Start: 01-11-2025 RSV Vaccine (1 - 1-d ose 60+ series) RSV Vaccine (1 - 1-dose 60+ series) [facility] Comment on above: Postponed from 06/26 (Declined at this time) Start: 01-11-2025 RSV Vaccine (1 - 1-d ose 75+ series) RSV Vaccine (1 - 1-dose 75+ series) [facility] Comment on above: Postponed from 06/26 (Declined at this time) Start: 01-11-2025 Urine microalbumin profile DTaP,Tdap,Td Vaccine (1 - Tdap) [facility] Comment on above: Postponed from 06/26 (Declined at this time) Start: 01-05-2025 Hepatitis B surface antibody level LDL Cholesterol [facility] Start: 10-11-2024 End: 01-10-2025 Comprehensive metabolic 2000 panel - Serum or Plasma COMPREHENSIVE METABOLIC PANEL Lab Routine Stage 3 chronic kidney disease, unspecified whether stage 3a or 3b CKD (HCC) Expected: 10/11/2024, Expires: 01/10/2025 [facility] Work Phone: Comment on above: Expected: 10/11/2024 , Expires: 01/10/2025 Start: 10-11-2024 End: 10-11-2024 Patient encounter procedure 10/11/2024 2:00 PM EST Office Visit [facility] [place] [address], [place] [id number] Treva Sandoval APRN.PUBLIC RELATIONS OFFICER [address] [place] [address] [facility] ER follow up CT, discharged 10/08/2024, needs rx and labs [facility] Comment on above: [facility] ER follow up CT, discharged 10/08/2024, needs rx and labs Start: 10-09-2024 End: 01-08-2025 CBC W Auto Differential panel - Blood COMPLETE BLOOD COUNT AND DIFFERENTIAL Lab Routine Congestive heart failure, unspecified HF chronicity, unspecified heart failure type (HCC) Expected: 10/09/2024, Expires: 01/08/2025 [facility] Comment on above: Expected: 10/09/2024 , Expires: 01/08/2025 Start: 10-09-2024 End: 01-08-2025 Comprehensive metabolic 2000 panel - Serum or Plasma COMPREHENSIVE METABOLIC PANEL Lab Routine Congestive heart failure, unspecified HF chronicity, unspecified heart failure type (HCC) Expected: 10/09/2024, Expires: 01/08/2025 [facility] Work Phone: Comment on above: Expected: 10/09/2024 , Expires: 01/08/2025 Start: 09-20-2024 Advance Directive Discussion Advance Directive Discussion [facility] Start: 08-28-2024 End: 08-28-2024 Patient encounter procedure 08/28/2024 9:20 AM EST Office Visit [facility] Tomas De Anda [address] [place] [address] Treva Sandoval, GLO.PUBLIC RELATIONS OFFICER [address] [place] [address] BP check 1 month [facility] Comment on above: BP check 1 month Start: 07-28-2024 End: 07-28-2024 Patient encounter procedure 07/28/2024 9:20 AM EST Office Visit [facility] Tomas De Anda [address] [place] [address] Treva Sandoval, GLO.PUBLIC RELATIONS OFFICER [address] [place] [address] 6 month follow up with labs [facility] Comment on above: 6 month follow up [facility] Start: 07-13-2024 End: 10-12-2024 Comprehensive metabolic 2000 panel - Serum or Plasma COMPREHENSIVE METABOLIC PANEL Lab Routine Hyperlipidemia LDL goal <100 Expected: 07/13/2024, Expires: 10/12/2024 [facility] Comment on above: Expected: 07/13/2024 , Expires: 10/12/2024 Start: 07-13-2024 End: 10-12-2024 Hemoglobin A1c in Blood HEMOGLOBIN A1C Lab Routine 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 3 chronic kidney disease, without long-term current use of insulin (HCC) Expected: 07/13/2024, Expires: 10/12/2024 [facility] Work Phone: Comment on above: Expected: 07/13/2024 , Expires: 10/12/2024 Start: 07-13-2024 End: 10-12-2024 Lipid 1996 panel - Serum or Plasma LIPID PANEL BASIC Lab Routine Hyperlipidemia LDL goal <100 Expected: 07/13/2024, Expires: 10/12/2024 [facility] Comment on above: Expected: 07/13/2024 , Expires: 10/12/2024 Start: 07-13-2024 End: 10-12-2024 Microalbumin/Creatinine [Mass Ratio] in Urine ALBUMIN/CREATININE RATIO, URINE Lab Routine 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 3 chronic kidney disease, without long-term current use of insulin (HCC) Expected: 07/13/2024, Expires: 10/12/2024 [facility] Comment on above: Expected: 07/13/2024 , Expires: 10/12/2024 Start: 07-07-2024 Hemoglobin A1c measurement HbA1C [facility] Start: 05-21-2024 Covid-19 Vaccine () Covid-19 Vaccine () [facility] Start: 05-21-2024 Influenza vaccination Influenza Vacc ine (#1) [facility] Start: 11-27-2023 COVID-19 VACCINE (4 - Booster for Pfizer series) COVID-19 VACCINE (4 - Booster for Pfizer series) [facility] Comment on above: Postponed from 11/05 (Declined at this time) Start: 11-27-2023 COVID-19 VACCINE (4 - Pfizer series) COVID-19 VACCINE (4 - Pfizer series) [facility] Comment on above: Postponed from 11/05 (Declined at this time) Start: 11-20-2023 Hepatitis B surface antibody level LDL CHOLESTEROL [facility] Start: 08-26-2023 Glaucoma screening Dilated Retinal E xam [facility] Start: 08-26-2023 Hepatitis C antibody , confirmatory test DILATED RETINAL EXAM [facility] Start: 07-23-2023 Screening for osteoporosis Bone Density Screening [facility] Start: 05-29-2023 End: 07-29-2023 CBC W Auto Differential panel - Blood CBC + DIFF Lab Routine Essential hypertension, benign Expected: 05/29/2023, Expires: 07/29/2023 [facility] Work Phone: Comment on above: Expected: 05/29/2023 , Expires: 07/29/2023 Start: 05-29-2023 End: 07-29-2023 Comprehensive metabolic 2000 panel - Serum or Plasma COMP METABOLIC PANEL Lab Routine 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 3 chronic kidney disease, without long-term current use of insulin (HCC) Expected: 05/29/2023, Expires: 07/29/2023 [facility] Work Phone: Comment on above: Expected: 05/29/2023 , Expires: 07/29/2023 Start: 05-29-2023 End: 07-29-2023 Hemoglobin A1c in Blood HGB A1C Lab Routine 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 3 chronic kidney disease, without long-term current use of insulin (HCC) Expected: 05/29/2023, Expires: 07/29/2023 [facility] Work Phone: Comment on above: Expected: 05/29/2023 , Expires: 07/29/2023 Start: 05-29-2023 End: 07-29-2023 Lipid 1996 panel - Serum or Plasma LIPID PANEL BASIC Lab Routine Hyperlipidemia LDL goal <100 Expected: 05/29/2023, Expires: 07/29/2023 [facility] Work Phone: Comment on above: Expected: 05/29/2023 , Expires: 07/29/2023 Start: 05-28-2023 Urine microalbumin profile DTAP,TDAP,TD (1 - Tdap) [facility] Comment on above: Postponed from 06/26 (Declined at this time) Start: 05-21-2023 Influenza vaccination INFLUENZA (#1) [facility] Start: 11-27-2022 3 comp foot exam completed DIABETIC FOOT EXAM [facility] Start: 11-27-2022 Diabetic foot examination Diabetic Foot Exam [facility] Start: 11-24-2022 Hepatitis B screening URINE AL BUMIN:CREATININE RATIO [facility] Start: 11-19-2022 Hemoglobin A1c/Hemoglobin.total in Blood HBA1C [facility] Start: 09-20-2022 ADVANCE DIRECTIVE DISCUSSION ADVANCE DIRECTIVE DISCUSSION [facility] Start: 09-20-2022 DEPRESSION ASSESSMENT DEPRESSION ASS ESSMENT [facility] Start: 08-25-2022 Hepatitis C antibody , confirmatory test DILATED RETINAL EXAM [facility] Start: 05-27-2022 Hemoglobin A1c/Hemoglobin.total in Blood HBA1C [facility] Start: 05-15-2022 Hepatitis B surface antibody level LDL CHOLESTEROL [facility] Start: 02-09-2022 End: 01-18-2023 Screening mammography bi 2-view breast inc cad SYD SCREENING Radiology Routine Encounter for screening mammogram for malignant neoplasm of breast Expected: 02/09/2022, Expires: 01/18/2023 [facility] Work Phone: Comment on above: Expected: 02/09/2022 , Expires: 01/18/2023 Start: 01-09-2022 COVID-19 VACCINE (4 - Booster for Pfizer series) COVID-19 VACCINE (4 - Booster for Pfizer series) [facility] Start: 11-05-2021 COVID-19 VACCINE (4 - Booster for Pfizer series) COVID-19 VACCINE (4 - Booster for Pfizer series) [facility] Start: 2010 RSV Vaccine (1 - 1-d ose 75+ series) RSV Vaccine (1 - 1-dose 75+ series) [facility] Start: 1954 Urine microalbumin profile [facility] End: 10-03-2023 XR HAND GENERAL 3V PA/LAT/OBL BILATERAL XR HAND GENERAL 3V PA/LAT/OBL BILATERAL Radiology Routine Bilateral hand pain 1 Occurrences starting 09/03/2022 until 10/03/2023 [facility] Work Phone: Comment on above: 1 Occurrences starti ng 09/03/2022 until 10/03/2023 XR HAND GENERAL 3V PA/LAT/OBL BILATERAL XR HAND GENERAL 3V PA/LAT/OBL BILATERAL Radiology Routine Bilateral hand pain 09/03/2022 11:21 AM EST [facility] Work Phone: XR KNEE LIMITED 2V AP/LAT RIGHT XR KNEE LIMITED 2V AP/LAT RIGHT Radiology Routine Chronic pain of right knee 12/19/2021 3:51 PM EDT [facility] Work Phone: [facility] Immunizations Immunization Date Immunization Notes Care Provider Merle lucas 10-07-2024 zoster vaccine recombinant Treva Sandoval APRN.CNP Work Phone: [facility] 06-23-2024 Seasonal trivalent influenza vaccine, adjuvanted, preservative free Treva Sandoval APRN.CNP Work Phone: [facility] 09-11-2023 influenza (aIIV4) vaccine, age 65+ yr, quadrivalent, PF (FLUAD QUAD) Treva Sandoval APRN.PUBLIC RELATIONS OFFICER Work Phone: [facility] 05-31-2023 influenza virus vacc ine, unspecified formulation Xr [place] Work Phone: [facility] 06-05-2022 influenza (aIIV4) vaccine, age 65+ yr, quadrivalent, PF (FLUAD QUADRIVALENT) Treva Sandoval APRN.PUBLIC RELATIONS OFFICER Work Phone: [facility] 07-11-2021 influenza (aIIV4) vaccine, age 65+ yr, quadrivalent, PF (FLUAD QUADRIVALENT) Khari Sunshine APRN.[facility] Work Phone: [facility] Work Phone: 11-07-2020 COVID-19 vaccine, ag e 12+ yr (PFIZER-BIONTECH - PURPLE TOP) Khari Sunshine APRN.[facility] Work Phone: [facility] Work Phone: 10-17-2020 COVID-19 vaccine, ag e 12+ yr (PFIZER-BIONTECH - PURPLE TOP) Khari Sunshine APRN.[facility] Work Phone: [facility] 07-26-2020 zoster vaccine recombinant Khari Sunshine APRN.PUBLIC RELATIONS OFFICER [facility] Work Phone: [facility] Work Phone: 05-22-2020 influenza, high dose seasonal, preservative-free Khari Sunshine APRN.[facility] Work Phone: [facility] Work Phone: 05-22-2020 zoster vaccine recombinant Khari Sunshine APRN.PUBLIC RELATIONS OFFICER [facility] Work Phone: [facility] Work Phone: 06-07-2019 Seasonal trivalent influenza vaccine, adjuvanted, preservative free Khari Sunshine APRN.[facility] Work Phone: [facility] Work Phone: 06-30-2018 Seasonal trivalent influenza vaccine, adjuvanted, preservative free Khari Sunshine [employer]ROLE[employer] SUPPLY SPECIALIST.[facility] Work Phone: [facility] Work Phone: 07-05-2017 influenza, high dose seasonal, preservative-free Khari Blaz PETROLEUM SUPPLY SPECIALIST.[facility] Work Phone: [facility] 06-09-2016 influenza, high dose seasonal, preservative-free Khari Blamike PETROLEUM SUPPLY SPECIALIST.[facility] Work Phone: [facility] 08-30-2015 pneumococcal conjuga te vaccine, 13 valent Khari Sunshine PETROLEUM SUPPLY SPECIALIST.[facility] Work Phone: [facility] 07-21-2014 influenza virus vacc ine, unspecified formulation Khari Blamike PETROLEUM SUPPLY SPECIALIST.[facility] Work Phone: [facility] 08-18-2011 influenza virus vacc ine, unspecified formulation Khari Blamike PETROLEUM SUPPLY SPECIALIST.[facility] Work Phone: [facility] Work Phone: 07-17-2010 influenza virus vacc ine, whole virus Khari Blaz PETROLEUM SUPPLY SPECIALIST.[facility] Work Phone: [facility] 08-08-2009 influenza virus vacc ine, unspecified formulation Khari Blamike PETROLEUM SUPPLY SPECIALIST.[facility] Work Phone: [facility] 08-09-2008 influenza virus vacc ine, whole virus Khari Blaz PETROLEUM SUPPLY SPECIALIST.[facility] Work Phone: [facility] 08-04-2007 influenza virus vacc ine, whole virus Khari Blaz PETROLEUM SUPPLY SPECIALIST.[facility] Work Phone: [facility] 07-21-2005 influenza virus vacc ine, whole virus Khari Blaz PETROLEUM SUPPLY SPECIALIST.[facility] Work Phone: [facility] Work Phone: 07-21-2005 pneumococcal polysaccharide vaccine, 23 valent Khari Sunshine PETROLEUM SUPPLY SPECIALIST.[facility] Work Phone: [facility] Work Phone: Payers Date Payer Category Payer Private Health Insurance [facility] [id number] 2024 Self-pay 2021 Medicare A[employer] MEDICARE A ETNA MEDICARE PPO [id number] 2021-Present [phone] [address] [place] [address] PPO [id number] 2021 Medicare AETNA MEDICARE A ETNA MEDICARE PPO [id number] 2021-Present [phone] [id number] [place] [id number] PPO [id number] 2021 Medicare [facility] Care[facility] [id number] 2021 Private Health Insurance [id number] 2020 Medicare [id number] 2018 Unknown [id number] 1935 Unknown [id number] 1935 Unknown [id number] Unknown [id number] 462 Unknown [id number] 462 Unknown [id number] 462 Unknown [id number] 462 Unknown [id number] 462 Unknown [id number] 462 Unknown [id number] 462 Unknown [id number] 462 Unknown [id number] 462 Unknown [id number] 462 Social History Date Type Detail Facility Start: 12-14-2012 End: 05-28-2022 Tobacco smoking status NHIS Never smoked tobacco [facility] Work Phone: Start: 11-27-2021 End: 01-29-2025 Alcohol intake Current non-drinker of alcohol (finding) [facility] Start: 1935 Sex Assigned At Female C [facility] Work Phone: Start: 10-01-2021 End: 02-12-2022 Exposure to SARS-CoV-2 (event) Not sure [facility] Start: 12-14-2012 End: 05-28-2022 Tobacco use and exposure Smokeless tobacco non-user [facility] Start: 08-27-2020 End: 11-26-2022 History of Social function [facility] Work Phone: Start: 08-27-2020 End: 11-26-2022 Tobacco use panel [facility] Work Phone: Adult Depression Screening Assessment 0 [facility] Work Phone: Start: 11-27-2021 Gender identity Identifies as female gender (finding) [facility] Work Phone: Start: 11-27-2021 Sexual orientation Heterosexual (cyndi ding) [facility] Work Phone[facility] Start: 11-21-2013 Sex Female (finding) [facility] How often to you hav e a drink containing alcohol? Never [facility] Has the [employer], or [employer] threatened to shut off services in your home in past 12Mo No [facility] (I/We) worried wheth er (my/our) food would run out before (I/we) got money to buy more. Never true [facility] Medical Equipment Procedure Code Equipment Code Equipment Origin al Text Equipment Identifier Dates [id number], [id number], [id number], [id number], [id number], [id number] Start: 12-03-2008 End: 03-17-2024 Comment on above: Test blood sugar(s) 1 times daily. Dx: E11.9. Insulin: No, Brand covered by insurance use daily Functional Status Date Assessment Result Facility 01-29-2025 Total score [AUDIT-C] 0 01/30/20 25 9:20 AM Imtiaz Saez APRN.PUBLIC RELATIONS OFFICER [facility] 03-06-2015 Are you deaf, or do you have serious difficulty hearing No 03/06/2015 10:57 AM Shawanda Max LPN No [facility] 03-06-2015 Are you blind, or do you have serious difficulty seeing, even when wearing glasses No 03/06/2015 10:57 AM Shawanda Max LPN No [facility] 03-06-2015 Do you have serious difficulty walking or climbing stairs Yes 03/06/2015 10:57 AM Shawanda Max LPN Yes [facility] 03-06-2015 Do you have difficul ty dressing or bathing Yes 03/06/2015 10:57 AM Shawanda Max LPN Yes [facility] 03-06-2015 Because of a physica l, mental, or emotional condition, do you have difficulty doing errands alone such as visiting a physician's office or shopping Yes 03/06/2015 10:57 AM EDShawanda Colon LPN Yes [facility] Mental Status Date Assessment Result Facility 03-06-2015 Because of a physica l, mental, or emotional condition, do you have serious difficulty concentrating, remembering, or making decisions No 03/06/2015 10:57 AM EDShawanda Colon LPN No [facility] Clinical Notes 09-28-2017 to 02-22-2025 Cathy Dugan RN - 02/22/2025 11:37 AM EDTPatient InstructionsImtiaz Hodge APRN.PUBLIC RELATIONS OFFICER - 01/29/2025 9:00 AM EDTTelephone Encounter - Chelle Torre MA - 12/19/2024 11:41 AM EDTPatient Instructions Note Date & Type Note Facility 02-22-2025 Note HNO ID: [id number] Author: CATHY DUGAN RN Service: ? Author Type: Registered Nurse Type: Progress Notes Filed: 02/22/2025 11:40 Note Text: CDM Care Path Telephonic Outreach Provider Action/FYI CDM Update Called and spoke with the patient and her daughter. Patient reports she is doing well States she is in the process of moving and requested I call back in a few weeks. Patient identified by Name and Date of . Discussed care with daughter and patient. Program Details Chronic Disease Management Status: Paused Effective Dates: 02/08/2025 - present Responsible Staff: Cathy Dugan, RN Support and Services: Hypertension, Diabetes, Chronic Kidney Disease (CKD) Program Goals Targets Target Due Completed Completed By Outcome General education provided (managing stress, where to go/how to contact, etc.) 04/09/2025 -- -- -- Annual Nephrology visit addressed 06/07/2025 -- -- -- Biannual PCP visit addressed 06/07/2025 -- -- -- CKD lab care gaps addressed 06/07/2025 -- -- -- Comprehensive CKD education provided 06/07/2025 -- -- -- Comprehensive Diabetes education provided 06/07/2025 -- -- -- Comprehensive HTN education provided 06/07/2025 -- -- -- Diabetes lab care gaps addressed 06/07/2025 -- -- -- HTN lab care gaps addressed 06/07/2025 -- -- -- Patient-stated goal addressed (add comment) 06/07/2025 -- -- -- Intake assessments completed: ADLs, Fall Risk, SDOH 04/09/2025 02/08/2025 Cathy Dugan RN Complete Annual Medicare Wellness visit addressed 06/07/2025 02/08/2025 Cathy Dugan RN Complete/Scheduled Assessments CDM Assessment Symptoms: Are you experiencing any new or worsening symptoms that you need to talk about today?: No ADLs No documentation this encounter Fall Risk No documentation this encounter SDOH No documentation this encounter Interventions The following were addressed during this visit: - Bi-Weekly Outreach (Recurring) Disposition Based on manager of corporate, the following disposition is advised: No action needed Cathy Dugan RN February 22, 2025 11:37 AM [facility] 02-22-2025 History of Present illness Narrative Images from the original note were not included. CDM [facility] Telephonic Outreach Provider Action/FYI CDM Update Called and spoke with the patient and her daughter. Patient reports she is doing well States she is in the process of moving and requested I call back in a few weeks. Patient identified by Name and Date of . Discussed care with daughter and patient. Program Details Chronic Disease Management Status: Paused Effective Dates: 02/08/2025 - present Responsible Staff: Cathy Dugan, YUDI Support and Services: Hypertension, Diabetes, Chronic Kidney Disease (CKD) Program Goals Targets Target Due Completed Completed By Outcome General education provided (managing stress, where to go/how to contact, etc.) 04/09/2025 -- -- -- Annual Nephrology visit addressed 06/07/2025 -- -- -- Biannual PCP visit addressed 06/07/2025 -- -- -- CKD lab care gaps addressed 06/07/2025 -- -- -- Comprehensive CKD education provided 06/07/2025 -- -- -- Comprehensive Diabetes education provided 06/07/2025 -- -- -- Comprehensive HTN education provided 06/07/2025 -- -- -- Diabetes lab care gaps addressed 06/07/2025 -- -- -- HTN lab care gaps addressed 06/07/2025 -- -- -- Patient-stated goal addressed (add comment) 06/07/2025 -- -- -- Intake assessments completed: ADLs, Fall Risk, SDOH 04/09/2025 02/08/2025 Cathy Dugan RN Complete Annual Medicare Wellness visit addressed 06/07/2025 02/08/2025 Cathy Dugan RN Complete/Scheduled Assessments CDM Assessment Symptoms: Are you experiencing any new or worsening symptoms that you need to talk about today?: No ADLs No documentation this encounter Fall Risk No documentation this encounter SDOH No documentation this encounter Interventions The following were addressed during this visit: - Bi-Weekly Outreach (Recurring) Disposition Based on manager of corporate, the following disposition is advised: No action needed Cathy Dugan RN February 22, 2025 11:37 AM documented in this encounter [facility] 02-22-2025 Note Patient Outreach (AM [facility]) LUCILLE THURMAN ([id number]) 1935 F Date Time Provider Department 02/22/25 CATHY DUGAN [facility] During your visit today, we recorded the following information about you: Cathy Dugan RN 02/22/2025 11:40 AM Signed CDM Care Path Telephonic Outreach Provider Action/ CDM Update Called and spoke with the patient and her daughter. Patient reports she is doing well States she is in the process of moving and requested I call back in a few weeks. Patient identified by Name and Date of . Discussed care with daughter and patient. Program Details Chronic Disease Management Status: Paused Effective Dates: 02/08/2025 - present Responsible Staff: Cathy Dugan, RN Support and Services: Hypertension, Diabetes, Chronic Kidney Disease (CKD) Program Goals Targets Target Due Completed Completed By Outcome General education provided (managing stress, where to go/how to contact, etc.) 04/09/2025 -- -- -- Annual Nephrology visit addressed 06/07/2025 -- -- -- Biannual PCP visit addressed 06/07/2025 -- -- -- CKD lab care gaps addressed 06/07/2025 -- -- -- Comprehensive CKD education provided 06/07/2025 -- -- -- Comprehensive Diabetes education provided 06/07/2025 -- -- -- Comprehensive HTN education provided 06/07/2025 -- -- -- Diabetes lab care gaps addressed 06/07/2025 -- -- -- HTN lab care gaps addressed 06/07/2025 -- -- -- Patient-stated goal addressed (add comment) 06/07/2025 -- -- -- Intake assessments completed: ADLs, Fall Risk, SDOH 04/09/2025 02/08/2025 Cathy Dugan RN Complete Annual Medicare Wellness visit addressed 06/07/2025 02/08/2025 Cathy Dugan RN Complete/Scheduled Assessments CDM Assessment Symptoms: Are you experiencing any new or worsening symptoms that you need to talk about today?: No ADLs No documentation this encounter Fall Risk No documentation this encounter SDOH No documentation this encounter Interventions The following were addressed during this visit: - Bi-Weekly Outreach (Recurring) Disposition Based on manager of corporate, the following disposition is advised: No action needed Cathy Dugan RN February 22, 2025 11:37 AM Allergies As of Date: 02/22/2025 Noted Allergy Reaction METFORMIN 03/13/2013 6 - Diarrhea MORPHINE 02/14/2016 8 - GI Upset OXYCODONE 02/14/2016 8 - GI Upset PREVACID (LANSOPRAZOLE) 07/20/2005 Date Reviewed: 01/29/2025 Reviewed by: Ashli Carter LPN - Fully Assessed Prescriptions as of 02/22/2025 - blood sugar diagnostic (BLOOD GLUCOSE TEST) test strip Test blood sugar(s) 1 times daily. Dx: Type 2 DM - Controlled E11.9 Insulin: No - losartan (COZAAR) 100 mg tablet Take 100 mg by mouth once daily. - isosorbide mononitrate ER (IMDUR) 30 mg 24 hr tablet Take 30 mg by mouth once daily. - furosemide (LASIX) 20 mg tablet Take 1 tablet by mouth once daily. - omeprazole (PRILOSEC) 20 mg capsule take 1 capsule by mouth every other day 1/2 HOUR BEFORE BREAKFAST - amLODIPine (NORVASC) 5 mg tablet Take 1 tablet by mouth once daily. - carvedilol (COREG) 3.125 mg tablet Take 3.125 mg by mouth two times a day with meals. - clopidogrel (PLAVIX) 75 mg tablet Take 75 mg by mouth once daily. - JARDIANCE 10 mg tablet Take 10 mg by mouth daily with breakfast. - aspirin, enteric coated (ASPIRIN, ENTERIC COATED) 81 mg EC tablet Take 81 mg by mouth once daily. - atorvastatin (LIPITOR) 80 mg tablet Take 1 tablet by mouth daily at bedtime. For cholesterol. - povidone, PF, (IVIZIA, PF,) 0.5 % drop Use 1 Drop in eyes three times a day. - blood sugar diagnostic (BLOOD GLUCOSE TEST) test strip Test blood sugar(s) 1 times daily. Dx: E11.9. Insulin: No, Brand covered by insurance - MULTIVITS, W-CA,FE,OTH MIN (MULTIVITAMIN AND MINERAL ORAL) Take 1 tablet by mouth once daily. - lancets(FREESTYLE LANCETS) use daily - blood glucose control highANDlow(FREESTYLE CONTROL SOLN) use as directed Meds Comments as of 05/09/2019: Problem List As Of Date 02/22/2025 Noted Resolved 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 *07/21/2005 DIFFUS CYSTIC MASTOPATHY [N60.19] 07/21/2005 Chronic cough [R05.3] 08/08/2009 08/30/2015 Essential hypertension, benign [I10] 07/30/2010 Lumbar disc disease with radiculopathy [M51.16] 02/25/2011 Lateral epicondylitis [M77.10] 08/18/2011 07/01/2015 Vitamin D deficiency [E55.9] 08/20/2011 Contact eczematous dermatitis [L25.9] 03/09/2013 03/22/2019 Rash and other nonspecific skin eruption [R21] 03/09/2013 09/29/2018 Actinic keratosis [L57.0] 03/09/2013 03/22/2019 Actinic skin damage [L57.8] 03/09/2013 03/22/2019 Xerosis cutis [L85.3] 03/09/2013 03/22/2019 Carpal tunnel syndrome [G56.00] 09/29/2013 03/22/2019 Gall bladder stones [K80.20] 06/29/2014 10/19/2014 Gall bladder polyp [K82.4] 06/29/2014 10/19/2014 RUQ pain [R10.11] 06/29/2014 10/19/2014 Arteriosclerosis of both (more content not included)... [facility] 02-08-2025 Note HNO ID: [id number] Author: CATHY DUGAN, RN Service: ? Author Type: Registered Nurse Type: Progress Notes Filed: 02/08/2025 10:39 Note Text: CDM Care Path Telephonic Outreach Provider Action/FYI CDM Update Called and spoke with the patient She reports she is doing well States she is checking her BP and that it has been stable. Advised her to continue to monitor her BP and when to contact her PCP. Provided H@H phone number Denies any questions or concerns at this time. Patient identified by Name and Date of . Discussed care with patient. Program Details Chronic Disease Management Status: Enrolled Effective Dates: 02/08/2025 - present Responsible Staff: Cathy Dugan, RN Support and Services: Congestive Heart Failure (CHF), Hypertension, Diabetes, Chronic Kidney Disease (CKD) Program Goals Targets Target Due Completed Completed By Outcome General education provided (managing stress, where to go/how to contact, etc.) 03/12/2025 -- -- -- Annual Nephrology visit addressed 05/11/2025 -- -- -- Biannual Cardiology visit addressed 05/11/2025 -- -- -- Biannual PCP visit addressed 05/11/2025 -- -- -- CKD lab care gaps addressed 05/11/2025 -- -- -- Comprehensive CHF education provided 05/11/2025 -- -- -- Comprehensive CKD education provided 05/11/2025 -- -- -- Comprehensive Diabetes education provided 05/11/2025 -- -- -- Comprehensive HTN education provided 05/11/2025 -- -- -- Diabetes lab care gaps addressed 05/11/2025 -- -- -- HTN lab care gaps addressed 05/11/2025 -- -- -- Patient-stated goal addressed (add comment) 05/11/2025 -- -- -- Intake assessments completed: ADLs, Fall Risk, SDOH 03/12/2025 02/08/2025 Cathy Dugan RN Complete Annual Medicare Wellness visit addressed 05/11/2025 02/08/2025 Cathy Dugan RN Complete/Scheduled Assessments CDM Assessment Medications: Do you have any questions about taking your medications or which medications you should be taking?: No Do you need any medication refills at this time, including any of the medication you might take only when needed?: (daughter manages her prescriptions) Social: It can be normal to feel anxious or down during a time like this. Would you like to talk to a mental health professional about how you have been feeling?: No Symptoms: Are you experiencing any new or worsening symptoms that you need to talk about today?: No ADLs Patients can perform the following activities without help: Bathing: Yes Dressing: Yes Eating: Yes Transferring: Yes Toileting: Yes Walking : Yes Instrumental activities of daily living Grocery Shopping: Yes Driving / Use Public Transportation: Yes Using Telephone: Yes Meal Preparation: Yes Housework: Yes Home Repair: Yes Doing laundry: Yes Taking Medications: Yes Handling finances: Yes Fall Risk One or more falls in the last year:: No Any near falls in the last year?: No Advised to use a cane or walker to get around safely:: Yes Feels unsteady when walking:: No Steadies self on furniture while walking at home:: No Worried about falling:: No Needs to push with hands when rising from a chair:: No Has trouble stepping up onto a curb:: No Often has to newell to the toilet:: No Has lost some feeling in feet:: No Takes medicine that makes him/her feel lightheaded or more tired than usual:: No Takes medicine to sleep or improve mood:: No SDOH Financial Resource Strain How hard is it for you to pay for the very basics like food, housing, medical care, and heating?: Not hard at all Housing Stability In the last 12 months, was there a time when you were not able to pay the mortgage or rent on time?: No In the past 12 months, how many times have you moved where you were living?: 0 At any time in the past 12 months, were you homeless or living in a long-term (including now)?: No Transportation Needs In the past 12 months, has lack of transportation kept you from medical appointments or from getting medications?: No In the past 12 months, has lack of transportation kept you from meetings, work, or from getting things needed for daily living?: No Food Insecurity Within the past 12 months, you worried that your food would run out before you got the money to buy more.: Never true Within the past 12 months, the food you bought just didn't last and you didn't have money to get more.: Never true Utilities In the past 12 months has the electric, gas, oil, or water company threatened to shut off services in your home?: No Tobacco Use Patient reports that she has never smoked. She has never used smokeless tobacco. Interventions The following were addressed during this visit: - Initial enrollment outreach - Intake assessments completed: ADLs, Fall Risk, SDOH - Annual Medicare Wellness visit addressed - Schedule Annual Wellness Visit - Month 1: Provide General Education: How to Contact Your Physician Team - Month 1: Review Individu (more content not included)... [facility] 02-08-2025 Note Patient Outreach (AM [facility]) LUCILLE THURMAN ([id number]) 1935 F Date Time Provider Department 02/08/25 CATHY DUGAN During your visit today, we recorded the following information about you: Cathy Dugan, RN 02/08/2025 10:39 AM Signed CDM Care Path Telephonic Outreach Provider Action/ CDM Update Called and spoke with the patient She reports she is doing well States she is checking her BP and that it has been stable. Advised her to continue to monitor her BP and when to contact her PCP. Provided H@H phone number Denies any questions or concerns at this time. Patient identified by Name and Date of . Discussed care with patient. Program Details Chronic Disease Management Status: Enrolled Effective Dates: 02/08/2025 - present Responsible Staff: Cathy Dugan, RN Support and Services: Congestive Heart Failure (CHF), Hypertension, Diabetes, Chronic Kidney Disease (CKD) Program Goals Targets Target Due Completed Completed By Outcome General education provided (managing stress, where to go/how to contact, etc.) 03/12/2025 -- -- -- Annual Nephrology visit addressed 05/11/2025 -- -- -- Biannual Cardiology visit addressed 05/11/2025 -- -- -- Biannual PCP visit addressed 05/11/2025 -- -- -- CKD lab care gaps addressed 05/11/2025 -- -- -- Comprehensive CHF education provided 05/11/2025 -- -- -- Comprehensive CKD education provided 05/11/2025 -- -- -- Comprehensive Diabetes education provided 05/11/2025 -- -- -- Comprehensive HTN education provided 05/11/2025 -- -- -- Diabetes lab care gaps addressed 05/11/2025 -- -- -- HTN lab care gaps addressed 05/11/2025 -- -- -- Patient-stated goal addressed (add comment) 05/11/2025 -- -- -- Intake assessments completed: ADLs, Fall Risk, SDOH 03/12/2025 02/08/2025 Cathy Dugan, RN Complete Annual Medicare Wellness visit addressed 05/11/2025 02/08/2025 Cathy Dugan RN Complete/Scheduled Assessments CDM Assessment Medications: Do you have any questions about taking your medications or which medications you should be taking?: No Do you need any medication refills at this time, including any of the medication you might take only when needed?: (daughter manages her prescriptions) Social: It can be normal to feel anxious or down during a time like this. Would you like to talk to a mental health professional about how you have been feeling?: No Symptoms: Are you experiencing any new or worsening symptoms that you need to talk about today?: No ADLs Patients can perform the following activities without help: Bathing: Yes Dressing: Yes Eating: Yes Transferring: Yes Toileting: Yes Walking : Yes Instrumental activities of daily living Grocery Shopping: Yes Driving / Use Public Transportation: Yes Using Telephone: Yes Meal Preparation: Yes Housework: Yes Home Repair: Yes Doing laundry: Yes Taking Medications: Yes Handling finances: Yes Fall Risk One or more falls in the last year:: No Any near falls in the last year?: No Advised to use a cane or walker to get around safely:: Yes Feels unsteady when walking:: No Steadies self on furniture while walking at home:: No Worried about falling:: No Needs to push with hands when rising from a chair:: No Has trouble stepping up onto a curb:: No Often has to newell to the toilet:: No Has lost some feeling in feet:: No Takes medicine that makes him/her feel lightheaded or more tired than usual:: No Takes medicine to sleep or improve mood:: No SDOH Financial Resource Strain How hard is it for you to pay for the very basics like food, housing, medical care, and heating?: Not hard at all Housing Stability In the last 12 months, was there a time when you were not able to pay the mortgage or rent on time?: No In the past 12 months, how many times have you moved where you were living?: 0 At any time in the past 12 months, were you homeless or living in a long-term (including now)?: No Transportation Needs In the past 12 months, has lack of transportation kept you from medical appointments or from getting medications?: No In the past 12 months, has lack of transportation kept you from meetings, work, or from getting things needed for daily living?: No Food Insecurity Within the past 12 months, you worried that your food would run out before you got the money to buy more.: Never true Within the past 12 months, the food you bought just didn't last and you didn't have money to get more.: Never true Utilities In the past 12 months has the electric, gas, oil, or water [employer] threatened to shut off services in your home?: No Tobacco Use Patient reports that she has never smoked. She has never used smokeless tobacco. Interventions The following were addressed during this visit: - Initial enrollment outreach - Intake assessments completed: ADLs, Fall Risk, SDOH (more content not included)... [facility] 01-29-2025 Instructions Imtiaz Hodge APRN.CNP - 01/29/2025 9:24 AM EDT We discussed your diabetes: - Your hemoglobin A1c is 6.4, which is excellent and within the goal range for your age. - We decided to discontinue Actos (15 mg) and Glimepiride (1 mg), as they are no longer necessary. - You will continue taking Jardiance, which helps manage your blood sugar and supports kidney function. We discussed your kidney function: - Your kidney function has improved. Your creatinine level decreased from 1.46 to 1.24, and your GFR increased from 34 to 42. This is a positive trend. - We will recheck your kidney function in 6 months. We discussed your blood pressure and cholesterol: - Your blood pressure is well-controlled today. - Your cholesterol panel looks good. - Continue taking your current medications for blood pressure and cholesterol as prescribed. We discussed the tingling sensation in your right foot: - This is likely due to a pinched nerve rather than your diabetes. - To help alleviate symptoms, avoid slouching and consider using lumbar support, such as a rolled towel, when sitting. - Continue the exercises you ve been doing, as they may help. We discussed the swelling in your legs: - The swelling in your left leg is likely due to varicose veins and reduced vein function over time. - To manage this, elevate your legs as much as possible and avoid keeping them in a dependent (hanging down) position for long periods. We discussed the spot on your arm: - I will refer you to a caustic operator at [facility] in [place] to evaluate and possibly remove the spot. Follow-up: - Your next blood work and kidney function check will be in 6 months. - A referral has been placed for dermatology at [facility]. Please schedule an appointment with them. If you have any new or worsening symptoms, please contact our office. documented in this encounter [facility] 01-29-2025 History of Present illness Narrative Images from the original note were not included. Lucille Thurman is a 89 year old female here for a Medicare wellness visit. Medicare Health Risk Assessment General Health Good Exercise: Minutes/Day 0 min Exercise: Days/Week 0 days Alcohol: Daily Use Never Alcohol: Drinks/Day Patient does not drink Alcohol: 6 or more drinks Never Feel off balance No Concerns: Teeth/Dentures No Concerns: Sexual function No Troubled by feelings None of the above Frequency: Eating healthy diet Several days ADLs requiring help Taking medications Safety precautions in home/vehicle Yes Smoke, vape, chews tobacco No Difficulty hearing No Difficulty seeing No Current Providers Specialists: I have reviewed specialist-related care of the patient in the medical record. Medical/Family history review Reviewed and updated problem list, medical/surgical/family/social history, medications, and allergies. Opioid use review Opioid Medications (last 90 days) No data to display Anxiety/Depression screening PHQ-2 Score: 0 (Lower risk for depression) DYLON-2 Score: 0 (Lower risk for anxiety) Recommendation: no further intervention at this time Cognitive screening Mini Cog Score: 4 Cognitive screening reviewed and No further action needed (score 3-5). Functional Observation Was the patient's Timed Up & Go test unsteady or >= 12 seconds? No Advance Care Planning Surrogate decision maker documented and/or advance directives scanned in chart Measurements BP 136/75 (BP Position: Sitting) Pulse 67 Resp 16 Wt 70.3 kg (155 lb) SpO2 99% BMI 27.46 kg/m Vision Screening: Follows with optometry/ophthalmology Assessment/Plan Medicare annual wellness visit, subsequent (Z00.00) - Counseled on healthy diet and regular exercise - Fall avoidance information provided - Personalized prevention plan provided Chief Complaint Patient presents with: Medicare Wellness Exam: 6 mo HPI Lucille Thurman is a 89 year old female who presents here today for above reason. Lucille is a 89-year-old female, with a history of DM, presenting for a follow-up visit, accompanied by her son, who is providing additional history. Lucille reports a recent onset of right foot paresthesia described as walking on needles, primarily occurring when transitioning from sitting to standing or after prolonged standing. Symptoms have been present for a couple of weeks and are described as an aggravation. She has been performing exercises to address this issue, which were recommended last week. She also reports a longstanding lesion on her arm that occasionally balls up and detaches on its own. She denies scratching the lesion. She has a history of DM and is currently taking Jardiance and glimepiride 1 mg. 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 Her recent HbA1c was 6.4%, and her blood glucose levels typically range from 88 to 100 mg/dL, with a recent reading of 98-99 mg/dL after consuming ice cream. She has a history of CKD, with a recent improvement in creatinine levels from 1.46 to 1.24 and an increase in GFR from 34 to 42. She is also taking multiple medications, including carvedilol, lisinopril, furosemide, Plavix, atorvastatin, aspirin, amlodipine, and losartan. She reports some confusion regarding her current losartan dosage, as she has been taking half of a 100 mg tablet. She reports chronic left lower extremity edema, with the left leg being consistently larger than the right. She denies any history of knee replacement surgery. She uses a cane for ambulation and is able to cook independently. Her daughter is planning to move in with her in the next several months. She denies alcohol consumption and reports no ongoing anxiety or depression, except for stress related to her car being in the shop and trying to sell her trailer. She denies any significant changes in memory or cognitive decline. Past medical history, appointments, medications, allergies reviewed. EXAM: BP 136/75 (BP Position: Sitting) Pulse 67 Resp 16 Wt 70.3 kg (155 lb) SpO2 99% BMI 27.46 kg/m General Appearance: Well appearing, alert, in no acute distress, well-hydrated, well nourished.. Skin: lesion on the posterior aspect of the right arm. 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 Lungs: Lungs clear to auscultation. No wheezing, rhonchi, rales.. Heart: RRR without murmur, gallop, or rubs. No ectopy. Ext: 1+, pitting pitting edema Latest Ref Rng 01/23/2025 Protein, Total 6.3 - 8.0 g/dL 7.6 Albumin 3.9 - 4.9 g/dL 4.3 Calcium 8.5 - 10.2 mg/dL 9.9 Calcium 9.7 Bilirubin, Total 0.2 - 1.3 mg/dL 0.4 Alkaline Phosphatase 34 - 123 U/L 83 AST 13 - 35 U/L 24 ALT 7 - 38 U/L 16 Glucose 74 - 99 mg/dL 140 (H) Glucose 139 (H) BUN 7 - 21 mg/dL 30 (H) BUN 32 (H) Creatinine 0.58 - 0.96 mg/dL 1.24 (H) Creatinine 1.24 (H) Sodium 136 - 144 mmol/L 139 Sodium 139 Potassium 3.7 - 5.1 mmol/L 4.6 Potassium 4.6 Chloride 98 - 107 mmol/L 104 Chloride 104 CO2 22 - 30 mmol/L 23 CO2 23 Anion Gap 8 - 15 mmol/L 12 Anion Gap 12 eGFR >=60 mL/min/1.73m 42 (L) eGFR 42 (L) Cholesterol, Total <200 mg/dL 156 Triglyceride <150 mg/dL 83 HDL Cholesterol >39 mg/dL 51 LDL Cholesterol, Calculated <100 mg/dL 89 Non HDL Cholesterol <130 mg/dL 105 VLDL Cholesterol <30 mg/dL 13 TC:HDL Ratio <5.10 3.06 LDL:HDL Ratio <2.54 1.75 Fasting Time hrs 15 Hemoglobin A1C 4.3 - 5.6 % 6.4 (H) Estimated Average Glucose mg/dL 137 1. 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 3 chronic kidney disease, without long-term current use of insulin ([facility]) (E11.22) Stage 3 chronic kidney disease, unspecified whether stage 3a or 3b CKD ([facility]) (N18.30) Hemoglobin A1c is 6.4%, which is excellent control for her age. Current medications include Jardiance and Glimepiride. Recent labs show improvement in kidney function with creatinine decreasing from 1.46 to 1.24 and GFR increasing from 34 to 42. - Discontinue Actos 15 mg and Glimepiride 1 mg. - Continue Jardiance. - Recheck labs in 6 months. 2. Congestive heart failure, unspecified HF chronicity, unspecified heart failure type ([facility]) (I50.9) Currently managed with carvedilol, lisinopril, and furosemide. No acute symptoms of heart failure exacerbation noted. - Continue current medications. - Monitor for any signs of heart failure exacerbation. 3. Essential hypertension, benign (I10) Blood pressure is well-controlled on current regimen, which includes carvedilol, lisinopril, and losartan. Recent adjustment in losartan dosage from 50 mg to 100 mg. - Continue current antihypertensive medications. - Monitor blood pressure regularly. 4. Skin lesion (L98.9) Lesion on the arm, longstanding, occasionally detaches partially. No signs of infection. 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 - Referral to [facility] for further evaluation and possible biopsy. 5. Screening for depression (Z13.31) Encounter for screening examination for other mental health and behavioral disorders (Z13.39) No signs of depression or other mental health disorders reported. Patient remains independent with no significant cognitive decline noted. Imtiaz Hodge APRN.BERNARDO RTO in 6 months, sooner if needed. This note was partly generated using [employer] voice recognition dictation and may contain some misspelled or inaccurate words missed on review. Recording using [employer] software for draft documentation of the visit was discussed with the patient/authorized community health representative; all questions welcomed and answered. Patient/authorized community health representative agreed to proceed documented in this encounter [facility] 01-29-2025 Note HNO ID: [id number] Author: IMTIAZ HODGE APRN.CNP Service: ? Author Type: Nurse Practitioner Type: Progress Notes Filed: 01/30/2025 11:37 Note Text: Lucille Thurman is a 89 year old female here for a Medicare wellness visit. Medicare Health Risk Assessment General Health Good Exercise: Minutes/Day 0 min Exercise: Days/Week 0 days Alcohol: Daily Use Never Alcohol: Drinks/Day Patient does not drink Alcohol: 6 or more drinks Never Feel off balance No Concerns: Teeth/Dentures No Concerns: Sexual function No Troubled by feelings None of the above Frequency: Eating healthy diet Several days ADLs requiring help Taking medications Safety precautions in home/vehicle Yes Smoke, vape, chews tobacco No Difficulty hearing No Difficulty seeing No Current Providers Specialists: I have reviewed specialist-related care of the patient in the medical record. Medical/Family history review Reviewed and updated problem list, medical/surgical/family/social history, medications, and allergies. Opioid use review Opioid Medications (last 90 days) No data to display Anxiety/Depression screening PHQ-2 Score: 0 (Lower risk for depression) DYLON-2 Score: 0 (Lower risk for anxiety) Recommendation: no further intervention at this time Cognitive screening Mini Cog Score: 4 Cognitive screening reviewed and No further action needed (score 3-5). Functional Observation Was the patient's Timed Up AND Go test unsteady or >= 12 seconds? No Advance Care Planning Surrogate decision maker documented and/or advance directives scanned in chart Measurements BP 136/75 (BP Position: Sitting) Pulse 67 Resp 16 Wt 70.3 kg (155 lb) SpO2 99% BMI 27.46 kg/m? Vision Screening: Follows with optometry/ophthalmology Assessment/Plan Medicare annual wellness visit, subsequent (Z00.00) - Counseled on healthy diet and regular exercise - Fall avoidance information provided - Personalized prevention plan provided Chief Complaint Patient presents with: Medicare Wellness Exam: 6 mo HPI Lucille Thurman is a 89 year old female who presents here today for above reason. Lucille is a 89-year-old female, with a history of DM, presenting for a follow-up visit, accompanied by her son, who is providing additional history. Lucille reports a recent onset of right foot paresthesia described as walking on needles, primarily occurring when transitioning from sitting to standing or after prolonged standing. Symptoms have been present for a couple of weeks and are described as an aggravation. She has been performing exercises to address this issue, which were recommended last week. She also reports a longstanding lesion on her arm that occasionally balls up and detaches on its own. She denies scratching the lesion. She has a history of DM and is currently taking Jardiance and glimepiride 1 mg. 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 Her recent HbA1c was 6.4%, and her blood glucose levels typically range from 88 to 100 mg/dL, with a recent reading of 98-99 mg/dL after consuming ice cream. She has a history of CKD, with a recent improvement in creatinine levels from 1.46 to 1.24 and an increase in GFR from 34 to 42. She is also taking multiple medications, including carvedilol, lisinopril, furosemide, Plavix, atorvastatin, aspirin, amlodipine, and losartan. She reports some confusion regarding her current losartan dosage, as she has been taking half of a 100 mg tablet. She reports chronic left lower extremity edema, with the left leg being consistently larger than the right. She denies any history of knee replacement surgery. She uses a cane for ambulation and is able to cook independently. Her daughter is planning to move in with her in the next several months. She denies alcohol consumption and reports no ongoing anxiety or depression, except for stress related to her car being in the shop and trying to sell her trailer. She denies any significant changes in memory or cognitive decline. Past medical history, appointments, medications, allergies reviewed. EXAM: BP 136/75 (BP Position: Sitting) Pulse 67 Resp 16 Wt 70.3 kg (155 lb) SpO2 99% BMI 27.46 kg/m? General Appearance: Well appearing, alert, in no acute distress, well-hydrated, well nourished.. Skin: lesion on the posterior aspect of the right arm. 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 Lungs: Lungs clear to auscultation. No wheezing, rhonchi, rales.. Heart: RRR without murmur, gallop, or rubs. No ectopy. Ext: 1+, pitting pitting edema Latest Ref Rng 01/23/2025 Protein, Total 6.3 - 8.0 g/dL 7.6 Albumin 3.9 - 4.9 g/dL 4.3 Calcium 8.5 - 10.2 mg/dL 9.9 Calcium 9.7 Bilirubin, Total 0.2 - 1.3 mg/dL 0.4 Alkaline Phosphatase 34 - 123 U/L 83 AST 13 - 35 U/L 24 ALT 7 - 38 U/L 16 Glucose 74 - (more content not included)... [facility] 12-19-2024 Telephone encounter Note The following approved medication requests have been transmitted electronically. Requested Prescriptions Signed Prescriptions Disp Refills furosemide (LASIX) 40 mg tablet 30 tablet 2 Sig: Take 0.5 tablets by mouth once daily. Chelle Torre MA [facility] 12-19-2024 Miscellaneous Notes The following approved medication requests have been transmitted electronically. Requested Prescriptions Signed Prescriptions Disp Refills furosemide (LASIX) 40 mg tablet 30 tablet 2 Sig: Take 0.5 tablets by mouth once daily. Chelle Torre MA OK to refill as ordered Allie Stanton MD Will send in 40 mg dosage. Pt notified message routed to Provider. Previously received Rx from ED. Prescription Refill Information The patient has been identified by name and date of : Yes Caregiver verified no other encounters exist for this prescription request: Yes Caregiver confirmed with patient/requestor that no other refills are due, in the near future, with this provider at this time: Yes The last office visit in the department: 10/11/24 Does the patient have a future office visit with this provider/department: Yes Requested Prescriptions Pending Prescriptions Disp Refills furosemide (LASIX) 40 mg tablet 30 tablet 2 Sig: Take 1 tablet by mouth once daily. Chelle Torre MA December 19, 2024 11:11 AM Waiting to hear update regarding dosage of medication. Then route refill to Provider. Chelle Torre MA documented in this encounter [facility] 12-19-2024 Telephone encounter Note OK to refill as ordered Allie Stanton MD [facility] 12-19-2024 Telephone encounter Note Will send in 40 mg dosage. Pt notified message routed to Provider. Previously received Rx from ED. Prescription Refill Information The patient has been identified by name and date of : Yes Caregiver verified no other encounters exist for this prescription request: Yes Caregiver confirmed with patient/requestor that no other refills are due, in the near future, with this provider at this time: Yes The last office visit in the department: 10/11/24 Does the patient have a future office visit with this provider/department: Yes Requested Prescriptions Pending Prescriptions Disp Refills furosemide (LASIX) 40 mg tablet 30 tablet 2 Sig: Take 1 tablet by mouth once daily. Chelle Torre MA December 19, 2024 11:11 AM [facility] 12-18-2024 Telephone encounter Note Pt sent Otonomy message notifying her Rx was sent into the Pharmacy. The following approved medication requests have been transmitted electronically. Requested Prescriptions Signed Prescriptions Disp Refills glimepiride (AMARYL) 1 mg tablet 90 tablet 3 Sig: Take 1 tablet by mouth daily with breakfast. Authorizing Provider: ALLIE STANTON MA [facility] 12-18-2024 Miscellaneous Notes Pt sent Otonomy message notifying her Rx was sent into the Pharmacy. The following approved medication requests have been transmitted electronically. Requested Prescriptions Signed Prescriptions Disp Refills glimepiride (AMARYL) 1 mg tablet 90 tablet 3 Sig: Take 1 tablet by mouth daily with breakfast. Authorizing Provider: ALLIE STANTON MA OK to refill as ordered Allie Stanton MD Prescription Refill Information The patient has been identified by name and date of : Yes Caregiver verified no other encounters exist for this prescription request: Yes Caregiver confirmed with patient/requestor that no other refills are due, in the near future, with this provider at this time: Yes The last office visit in the department: 10/11/24 Does the patient have a future office visit with this provider/department: Yes, 01/29/25 Requested Prescriptions Pending Prescriptions Disp Refills glimepiride (AMARYL) 1 mg tablet 90 tablet 3 Sig: Take 1 tablet by mouth daily with breakfast. *Pt [facility] rx [facility] Mau Erazo LPN December 18, 2024 4:16 PM documented in this encounter [facility] 12-18-2024 Telephone encounter Note OK to refill as ordered Allie Stanton MD [facility] 12-18-2024 Telephone encounter Note Waiting to hear update regarding dosage of medication. Then route refill to Provider. Chelle Torre MA [facility] 12-18-2024 Telephone encounter Note Prescription Refill Information The patient has been identified by name and date of : Yes Caregiver verified no other encounters exist for this prescription request: Yes Caregiver confirmed with patient/requestor that no other refills are due, in the near future, with this provider at this time: Yes The last office visit in the department: 10/11/24 Does the patient have a future office visit with this provider/department: Yes, 01/29/25 Requested Prescriptions Pending Prescriptions Disp Refills glimepiride (AMARYL) 1 mg tablet 90 tablet 3 Sig: Take 1 tablet by mouth daily with breakfast. *Pt requesting rx [facility] to [facility]. Mau Erazo LPN December 18, 2024 4:16 PM [facility] 11-16-2024 Telephone encounter Note OK to refill as ordered Allie Stanton MD [facility] 11-16-2024 Miscellaneous Notes OK to refill as ordered Allie Stanton MD Prescription Refill Information The patient has been identified by name and date of : Yes Caregiver verified no other encounters exist for this prescription request: Yes Caregiver confirmed with patient/requestor that no other refills are due, in the near future, with this provider at this time: Yes The last office visit in the department: 10/11/24 Does the patient have a future office visit with this provider/department: Yes 01/29/25 Requested Prescriptions Pending Prescriptions Disp Refills omeprazole (PRILOSEC) 20 mg capsule 45 capsule 3 Sig: take 1 capsule by mouth every other day 1/2 HOUR BEFORE BREAKFAST Arnold Gottlieb LPN November 16, 2024 2:49 PM documented in this encounter [facility] 11-16-2024 Telephone encounter Note Prescription Refill Information The patient has been identified by name and date of : Yes Caregiver verified no other encounters exist for this prescription request: Yes Caregiver confirmed with patient/requestor that no other refills are due, in the near future, with this provider at this time: Yes The last office visit in the department: 10/11/24 Does the patient have a future office visit with this provider/department: Yes 01/29/25 Requested Prescriptions Pending Prescriptions Disp Refills omeprazole (PRILOSEC) 20 mg capsule 45 capsule 3 Sig: take 1 capsule by mouth every other day 1/2 HOUR BEFORE BREAKFAST Arnold Gottlieb LPN November 16, 2024 2:49 PM [facility] 10-26-2024 Note HNO ID: [id number] Author: IZA JAMESON RN Service: ? Author Type: Registered Nurse Type: Progress Notes Filed: 10/26/2024 13:26 Note Text: Transitional Care Management (TCM) Follow-Up Note PCP Update / Actionable Items N/A - No specialty updates needed Patient Source: [facility] ([facility]) Discharge Outreach Summary: Spoke with daughter Deanna - patient prefers due to [place] per last encounter. Doing well at home, denies any increased swelling or SOB. Feels her mom has her confidence back , she is exercising and overall improved from before. Contact: Contact made with patient: Yes Spoke to: Deanna Mcgregor Validation: Validated the person spoken to is actively involved in the patient's care. The patient was identified by Name and Date of . I'd like to get an update on how you're doing since our last phone call. Is now a good time to talk? Yes Symptoms: Are you feeling about the same, better or worse since leaving the hospital? Better Weekly Outreach: 2nd Outreach Medications: Do you have any questions about taking your medications, including which medications you should be on, or do you need refills on your medications? No Patient Questions / Concerns: Do you have any questions related to your discharge? No Appointment / TCM Follow-Up: Have you had a follow-up visit with your Primary Care Provider or Specialist since you were discharged? Yes Do you need any assistance with scheduling or changing your follow-up appointments? Already seen SDOH: Has Food and Housing been addressed in Social Determinants in the past 3 months? No- Check Social Drivers to ensure Food and Housing have been addressed in the past 3 months. If longer than 3 months or not completed update Social Drivers on story board. Education Education details: Heart Failure Education Provided Symptom management related to heart failure Targets addressed / completed during outreach: N/A Outreach Outcome: Continue TCM Outreach for remainder of 30 days Care Management partners utilized: N/A Iza Jameson RN October 26, 2024 1:24 PM [facility] 10-26-2024 History of Present illness Narrative Transitional Care Management (TCM) Follow-Up Note PCP Update / Actionable Items N/A - No specialty updates needed Patient Source: [facility] ([facility]) Discharge Outreach Summary: Spoke with balbir Huerta - patient prefers due to [place] per last encounter. Doing well at home, denies any increased swelling or SOB. Feels her mom has her confidence back , she is exercising and overall improved from before. Contact: Contact made with patient: Yes Spoke to: Balbir Deanna Validation: Validated the person spoken to is actively involved in the patient's care. The patient was identified by Name and Date of . I'd like to get an update on how you're doing since our last phone call. Is now a good time to talk? Yes Symptoms: Are you feeling about the same, better or worse since leaving the hospital? Better Weekly Outreach: 2nd Outreach Medications: Do you have any questions about taking your medications, including which medications you should be on, or do you need refills on your medications? No Patient Questions / Concerns: Do you have any questions related to your discharge? No Appointment / TCM Follow-Up: Have you had a follow-up visit with your Primary Care Provider or Specialist since you were discharged? Yes Do you need any assistance with scheduling or changing your follow-up appointments? Already seen SDOH: Has Food and Housing been addressed in Social Determinants in the past 3 months? No- Check Social Drivers to ensure Food and Housing have been addressed in the past 3 months. If longer than 3 months or not completed update Social Drivers on story board. Education Education details: Heart Failure Education Provided Symptom management related to heart failure Targets addressed / completed during outreach: N/A Outreach Outcome: Continue TCM Outreach for remainder of 30 days Care Management partners utilized: N/A Iza Jameson RN October 26, 2024 1:24 PM documented in this encounter [facility] 10-26-2024 Note Patient Outreach ([facility]) LUCILLE THURMAN ([id number]) 1935 F Date Time Provider Department 10/26/24 IZA JAMESON During your visit today, we recorded the following information about you: Iza Jameson RN 10/26/2024 1:26 PM Signed Transitional Care Management (TCM) Follow-Up Note PCP Update / Actionable Items N/A - No specialty updates needed Patient Source: [facility] ([facility]) Discharge Outreach Summary: Spoke with daughter Deanna - patient prefers due to [place] per last encounter. Doing well at home, denies any increased swelling or SOB. Feels her mom has her confidence back , she is exercising and overall improved from before. Contact: Contact made with patient: Yes Spoke to: DaughterDeanna Validation: Validated the person spoken to is actively involved in the patient's care. The patient was identified by Name and Date of . I'd like to get an update on how you're doing since our last phone call. Is now a good time to talk? Yes Symptoms: Are you feeling about the same, better or worse since leaving the hospital? Better Weekly Outreach: 2nd Outreach Medications: Do you have any questions about taking your medications, including which medications you should be on, or do you need refills on your medications? No Patient Questions / Concerns: Do you have any questions related to your discharge? No Appointment / TCM Follow-Up: Have you had a follow-up visit with your Primary Care Provider or Specialist since you were discharged? Yes Do you need any assistance with scheduling or changing your follow-up appointments? Already seen SDOH: Has Food and Housing been addressed in Social Determinants in the past 3 months? No- Check Social Drivers to ensure Food and Housing have been addressed in the past 3 months. If longer than 3 months or not completed update Social Drivers on story board. Education Education details: Heart Failure Education Provided Symptom management related to heart failure Targets addressed / completed during outreach: N/A Outreach Outcome: Continue TCM Outreach for remainder of 30 days Care Management partners utilized: N/A Iza Jameson RN October 26, 2024 1:24 PM Allergies As of Date: 10/26/2024 Noted Allergy Reaction METFORMIN 03/13/2013 6 - Diarrhea MORPHINE 02/14/2016 8 - GI Upset OXYCODONE 02/14/2016 8 - GI Upset PREVACID (LANSOPRAZOLE) 07/20/2005 Date Reviewed: 10/11/2024 Reviewed by: Arnold Gottlieb LPN - Fully Assessed Reason for Visit: Transition Of Care [4074] Cmt: Follow up day 18 Prescriptions as of 10/26/2024 - amLODIPine (NORVASC) 5 mg tablet Take 1 tablet by mouth once daily. - carvedilol (COREG) 3.125 mg tablet Take 3.125 mg by mouth two times a day with meals. - clopidogrel (PLAVIX) 75 mg tablet Take 75 mg by mouth once daily. - JARDIANCE 10 mg tablet Take 10 mg by mouth daily with breakfast. - furosemide (LASIX) 40 mg tablet Take 40 mg by mouth once daily. - aspirin, enteric coated (ASPIRIN, ENTERIC COATED) 81 mg EC tablet Take 81 mg by mouth once daily. - metoprolol succinate ER (TOPROL XL) 25 mg 24 hr tablet Take 1 tablet by mouth once daily. - atorvastatin (LIPITOR) 80 mg tablet Take 1 tablet by mouth daily at bedtime. For cholesterol. - glimepiride (AMARYL) 1 mg tablet Take 1 tablet by mouth daily with breakfast. - lisinopril (ZESTRIL) 40 mg tablet Take 1 tablet by mouth once daily. - pioglitazone (ACTOS) 15 mg tablet Take 1 tablet by mouth once daily. - povidone, PF, (IVIZIA, PF,) 0.5 % drop Use 1 Drop in eyes three times a day. - blood sugar diagnostic (BLOOD GLUCOSE TEST) test strip Test blood sugar(s) 1 times daily. Dx: E11.9. Insulin: No, Brand covered by insurance - omeprazole (PRILOSEC) 20 mg capsule take 1 capsule by mouth every other day 1/2 HOUR BEFORE BREAKFAST - MULTIVITS,TH W-CA,FE,OTH MIN (MULTIVITAMIN AND MINERAL ORAL) Take 1 tablet by mouth once daily. - lancets(FREESTYLE LANCETS) use daily - blood glucose control highANDlow(FREESTYLE CONTROL SOLN) use as directed Meds Comments as of 05/09/2019: Problem List As Of Date 10/26/2024 Noted Resolved 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 *07/21/2005 DIFFUS CYSTIC MASTOPATHY [N60.19] 07/21/2005 Chronic cough [R05.3] 08/08/2009 08/30/2015 Essential hypertension, benign [I10] 07/30/2010 Lumbar disc disease with radiculopathy [M51.16] 02/25/2011 Lateral epicondylitis [M77.10] 08/18/2011 07/01/2015 Vitamin D deficiency [E55.9] 08/20/2011 Contact eczematous dermatitis [L25.9] 03/09/2013 03/22/2019 Rash and other nonspecific skin eruption [R21] 03/09/2013 09/29/2018 Actinic keratosis [L57.0] 03/09/2013 03/22/2019 Actinic skin damage [L57.8] 03/09/2013 03/22/2019 Xerosis cutis [L85.3] 03/09/2013 03/22/2019 Carpal tunnel syndrome [G56.00] 09/29/2013 03/22/2019 Gall bladder stones [K80.20] (more content not included)... [facility] 10-20-2024 Telephone encounter Note Call to pt and notified her this has been completed. Pt requesting this to be mailed to her at address on file (confirmed). Notified her this would be sent out to her. Chelle Torre MA [facility] 10-20-2024 Miscellaneous Notes Call to pt and notified her this has been completed. Pt requesting this to be mailed to her at address on file (confirmed). Notified her this would be sent out to her. Chelle Torre MA Rx done Allie Stanton MD See request below. Call pt once complete and ask if pt wants to roller picker or have mailed to her. Chelle Torre MA Lucille is calling Allie Stanton MD today to request Orders (Handicap placbabatunde) Please call patient when created. Patient has been identified by name and birthdate. Duration of symptoms: N/A Person calling: self Call patient at: at home [phone] (home) [phone] (work) [phone] (cell) Was an appointment scheduled: No Closing statement: Sheron Jenkins Gume Pss documented in this encounter [facility] 10-20-2024 Telephone encounter Note Rx done Allie Stanton MD [facility] Work Phone: 10-20-2024 Telephone encounter Note See request below. Call pt once complete and ask if pt wants to roller picker or have mailed to her. Chelle Torre MA [facility] 10-20-2024 Telephone encounter Note Lucille is calling Allie Stanton MD today to request Orders (Handicap placard) Please call patient when created. Patient has been identified by name and birthdate. Duration of symptoms: N/A Person calling: self Call patient at: at home [phone] (home) [phone] (work) [phone] (cell) Was an appointment scheduled: No Closing statement: Sheron Jenkins [employer] Work Phone: 10-19-2024 Note HNO ID: [id number] Author: CHINYERE PABON RN Service: ? Author Type: Registered Nurse Type: Progress Notes Filed: 10/19/2024 10:20 Note Text: Transitional Care Management (TCM) Follow-Up Note PCP Update / Actionable Items N/A - No specialty updates needed Patient Source: Npz-sb-Ypjziza (OON) Discharge Outreach Summary: Pt reports she is feeling well. Denies any SOB , leg swelling. Taking lasix 1/2 every other day. Noted daughter reaching out to neph. locally for appt . Pt states she is [place] and prefers additional f/u calls be made to her daughter. Patient discharged from [facility] Discharge date: 10/08/24 Admitted for: SOB/ CHF Readmission Risk: n/a Value-Based Contract: Beryl [employer] Contact: Contact made with patient: Yes Spoke to: Patient Validation: Validated the person spoken to is actively involved in the patient's care. The patient was identified by Name and Date of . I'd like to get an update on how you're doing since our last phone call. Is now a good time to talk? Yes Symptoms: Are you feeling about the same, better or worse since leaving the hospital? Better Weekly Outreach: 1st Outreach Medications: Do you have any questions about taking your medications, including which medications you should be on, or do you need refills on your medications? No Patient Questions / Concerns: Do you have any questions related to your discharge? No Appointment / TCM Follow-Up: Have you had a follow-up visit with your Primary Care Provider or Specialist since you were discharged? Yes Do you need any assistance with scheduling or changing your follow-up appointments? Patient already has an appointment scheduled Education Heart Failure Education Provided Weight monitoring and knowing your dry weight Heart failure medications and importance of compliance Symptom management related to heart failure Targets addressed / completed during outreach: Patient has TCM appointment with PC within 14 days Outreach Outcome: Continue TCM Outreach for remainder of 30 days Care Management partners utilized: N/A Chinyere Pabon RN October 19, 2024 10:17 AM [facility] 10-19-2024 History of Present illness Narrative Transitional Care Management (TCM) Follow-Up Note PCP Update / Actionable Items N/A - No specialty updates needed Patient Source: Hdm-sz-Idqjqqh (OON) Discharge Outreach Summary: Pt reports she is feeling well. Denies any SOB , leg swelling. Taking lasix 1/2 every other day. Noted daughter reaching out to neph. locally for appt . Pt states she [place] and prefers additional f/u calls be made to her daughter. Patient discharged from [facility]. Hospital Discharge date: 10/08/24 Admitted for: SOB/ CHF Readmission Risk: n/a Value-Based Contract: [employer]yl [employer] Contact: Contact made with patient: Yes Spoke to: Patient Validation: Validated the person spoken to is actively involved in the patient's care. The patient was identified by Name and Date of . I'd like to get an update on how you're doing since our last phone call. Is now a good time to talk? Yes Symptoms: Are you feeling about the same, better or worse since leaving the hospital? Better Weekly Outreach: 1st Outreach Medications: Do you have any questions about taking your medications, including which medications you should be on, or do you need refills on your medications? No Patient Questions / Concerns: Do you have any questions related to your discharge? No Appointment / TCM Follow-Up: Have you had a follow-up visit with your Primary Care Provider or Specialist since you were discharged? Yes Do you need any assistance with scheduling or changing your follow-up appointments? Patient already has an appointment scheduled Education Heart Failure Education Provided Weight monitoring and knowing your dry weight Heart failure medications and importance of compliance Symptom management related to heart failure Targets addressed / completed during outreach: Patient has TCM appointment with PC within 14 days Outreach Outcome: Continue TCM Outreach for remainder of 30 days Care Management partners utilized: N/A Chinyere Pabon RN October 19, 2024 10:17 AM documented in this encounter [facility] 10-19-2024 Note Patient Outreach ([facility] LUCILLE THURAMN ([id number]) 1935 F Date Time Provider Department 10/19/24 CHINYERE PABON During your visit today, we recorded the following information about you: Chinyere Pabon RN 10/19/2024 10:20 AM Signed Transitional Care Management (TCM) Follow-Up Note PCP Update / Actionable Items N/A - No specialty updates needed Patient Source: Evj-we-Evjhujz (OON) Discharge Outreach Summary: Pt reports she is feeling well. Denies any SOB , leg swelling. Taking lasix 1/2 every other day. Noted daughter reaching out to neph. locally for appt . Pt states she [place] and prefers additional f/u calls be made to her daughter. Patient discharged from [facility] Discharge date: 10/08/24 Admitted for: SOB/ CHF Readmission Risk: n/a Value-Based Contract: [employer]yl [employer] Contact: Contact made with patient: Yes Spoke to: Patient Validation: Validated the person spoken to is actively involved in the patient's care. The patient was identified by Name and Date of . I'd like to get an update on how you're doing since our last phone call. Is now a good time to talk? Yes Symptoms: Are you feeling about the same, better or worse since leaving the hospital? Better Weekly Outreach: 1st Outreach Medications: Do you have any questions about taking your medications, including which medications you should be on, or do you need refills on your medications? No Patient Questions / Concerns: Do you have any questions related to your discharge? No Appointment / TCM Follow-Up: Have you had a follow-up visit with your Primary Care Provider or Specialist since you were discharged? Yes Do you need any assistance with scheduling or changing your follow-up appointments? Patient already has an appointment scheduled Education Heart Failure Education Provided Weight monitoring and knowing your dry weight Heart failure medications and importance of compliance Symptom management related to heart failure Targets addressed / completed during outreach: Patient has TCM appointment with PC within 14 days Outreach Outcome: Continue TCM Outreach for remainder of 30 days Care Management partners utilized: N/A Chinyere Pabon RN October 19, 2024 10:17 AM Allergies As of Date: 10/19/2024 Noted Allergy Reaction METFORMIN 03/13/2013 6 - Diarrhea MORPHINE 02/14/2016 8 - GI Upset OXYCODONE 02/14/2016 8 - GI Upset PREVACID (LANSOPRAZOLE) 07/20/2005 Date Reviewed: 10/11/2024 Reviewed by: Arnold Gottlieb LPN - Fully Assessed Prescriptions as of 10/19/2024 - carvedilol (COREG) 3.125 mg tablet Take 3.125 mg by mouth two times a day with meals. - clopidogrel (PLAVIX) 75 mg tablet Take 75 mg by mouth once daily. - JARDIANCE 10 mg tablet Take 10 mg by mouth daily with breakfast. - furosemide (LASIX) 40 mg tablet Take 40 mg by mouth once daily. - aspirin, enteric coated (ASPIRIN, ENTERIC COATED) 81 mg EC tablet Take 81 mg by mouth once daily. - amLODIPine (NORVASC) 5 mg tablet Take 1 tablet by mouth once daily. - metoprolol succinate ER (TOPROL XL) 25 mg 24 hr tablet Take 1 tablet by mouth once daily. - atorvastatin (LIPITOR) 80 mg tablet Take 1 tablet by mouth daily at bedtime. For cholesterol. - glimepiride (AMARYL) 1 mg tablet Take 1 tablet by mouth daily with breakfast. - lisinopril (ZESTRIL) 40 mg tablet Take 1 tablet by mouth once daily. - pioglitazone (ACTOS) 15 mg tablet Take 1 tablet by mouth once daily. - povidone, PF, (IVIZIA, PF,) 0.5 % drop Use 1 Drop in eyes three times a day. - blood sugar diagnostic (BLOOD GLUCOSE TEST) test strip Test blood sugar(s) 1 times daily. Dx: E11.9. Insulin: No, Brand covered by insurance - omeprazole (PRILOSEC) 20 mg capsule take 1 capsule by mouth every other day 1/2 HOUR BEFORE BREAKFAST - MULTIVITS,TH W-CA,FE,OTH MIN (MULTIVITAMIN AND MINERAL ORAL) Take 1 tablet by mouth once daily. - lancets(FREESTYLE LANCETS) use daily - blood glucose control highANDlow(FREESTYLE CONTROL SOLN) use as directed Meds Comments as of 05/09/2019: Problem List As Of Date 10/19/2024 Noted Resolved 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 *07/21/2005 DIFFUS CYSTIC MASTOPATHY [N60.19] 07/21/2005 Chronic cough [R05.3] 08/08/2009 08/30/2015 Essential hypertension, benign [I10] 07/30/2010 Lumbar disc disease with radiculopathy [M51.16] 02/25/2011 Lateral epicondylitis [M77.10] 08/18/2011 07/01/2015 Vitamin D deficiency [E55.9] 08/20/2011 Contact eczematous dermatitis [L25.9] 03/09/2013 03/22/2019 Rash and other nonspecific skin eruption [R21] 03/09/2013 09/29/2018 Actinic keratosis [L57.0] 03/09/2013 03/22/2019 Actinic skin damage [L57.8] 03/09/2013 03/22/2019 Xerosis cutis [L85.3] 03/09/2013 03/22/2019 Carpal tunnel syndrome [G56.00] 09/29/2013 03/22/2019 Gall bladder stones [K80 (more content not included)... [facility] 10-16-2024 Telephone encounter Note Gave pt's Daughter Dr. Coates/Dr. Valente's phone number to contact there office to setup appt. If referral paperwork needed to contact office. Chelle Torre MA [facility] 10-16-2024 Miscellaneous Notes Gave pt's Daughter Dr. Coates/Dr. Valente's phone number to contact there office to setup appt. If referral paperwork needed to contact office. Chelle Torre MA documented in this encounter [facility] 10-12-2024 Note HNO ID: [id number] Author: CHINYERE PABON RN Service: ? Author Type: Registered Nurse Type: Progress Notes Filed: 10/12/2024 10:10 Note Text: Transition Care Management (TCM) Initial Outreach PCP Update / Actionable Items HRTIC TCM Home Visit Referral Source of Stratification: [facility]CM [facility] Hospital Admission Status: Discharged Readmission Risk Score: n/a Patient's zip code: [address] Is zip code within program service area: No Patient meets program referral criteria: No Patient does not qualify for High Risk TCM Home Visit program due to: Patient's zip code is not located within program service area Readmission Risk Score does not meet criteria Disposition: Patient does not qualify for HRTIC, will provide TCM outreach follow-up for 30-days Patient Source: Ses-it-Twxvzdh (OON) Discharge Outreach Summary: Chart reviewed. Pt seen with PCP office for discharge follow up yesterday. TCM will continue to follow and attempt outreach next week. Patient discharged from [facility] Discharge date: 10/08/24 Admitted for: SOB/ Readmission Risk: n/a Value-Based Contract: Beryl [employer]ERS Contact: Contact made with patient: N/A - Next outreach attempt scheduled for the next week. Chinyere Pabon RN October 12, 2024 10:10 AM [facility] 10-12-2024 History of Present illness Narrative Transition Care Management (TCM) Initial Outreach PCP Update / Actionable Items HRTIC TCM Home Visit Referral Source of Stratification: TCM [facility] Hospital Admission Status: Discharged Readmission Risk Score: n/a Patient's zip code: [address] Is zip code within program service area: No Patient meets program referral criteria: No Patient does not qualify for High Risk TCM Home Visit program due to: Patient's zip code is not located within program service area Readmission Risk Score does not meet criteria Disposition: Patient does not qualify for HRTIC, will provide TCM outreach follow-up for 30-days Patient Source: Utd-ny-Rmzbafm (OON) Discharge Outreach Summary: Chart reviewed. Pt seen with PCP office for discharge follow up yesterday. TCM will continue to follow and attempt outreach next week. Patient discharged from [facility]. hospital Discharge date: 10/08/24 Admitted for: SOB/ Readmission Risk: n/a Value-Based Contract: Beryl BROTHERS Contact: Contact made with patient: N/A - Next outreach attempt scheduled for the next week. Chinyere Pabon RN October 12, 2024 10:10 AM documented in this encounter [facility] 10-12-2024 Note Patient Outreach ([facility]) LUCILLE THURMAN ([id number]) 1935 F Do not c* Date Time Provider Department 10/12/24 CHINYERE PABONCMG During your visit today, we recorded the following information about you: Chinyere Pabon RN 10/12/2024 10:10 AM Signed Transition Care Management (TCM) Initial Outreach PCP Update / Actionable Items HRTIC TCM Home Visit Referral Source of Stratification: TCM [facility] Hospital Admission Status: Discharged Readmission Risk Score: n/a Patient's zip code: [address] Is zip code within program service area: No Patient meets program referral criteria: No Patient does not qualify for High Risk TCM Home Visit program due to: Patient's zip code is not located within program service area Readmission Risk Score does not meet criteria Disposition: Patient does not qualify for HRTIC, will provide TCM outreach follow-up for 30-days Patient Source: Xbk-fx-Yygqcnn (OON) Discharge Outreach Summary: Chart reviewed. Pt seen with PCP office for discharge follow up yesterday. TCM will continue to follow and attempt outreach next week. Patient discharged from [facility] Discharge date: 10/08/24 Admitted for: SOB/ Readmission Risk: n/a Value-Based Contract: Beryl BROTHERS Contact: Contact made with patient: N/A - Next outreach attempt scheduled for the next week. Chinyere Pabon RN October 12, 2024 10:10 AM Allergies As of Date: 10/12/2024 Noted Allergy Reaction METFORMIN 03/13/2013 6 - Diarrhea MORPHINE 02/14/2016 8 - GI Upset OXYCODONE 02/14/2016 8 - GI Upset PREVACID (LANSOPRAZOLE) 07/20/2005 Date Reviewed: 10/11/2024 Reviewed by: Arnold Gottlieb LPN - Fully Assessed Reason for Visit: Transition Of Care [4074] Cmt: TCM / OON [facility] 10/08/24 Prescriptions as of 10/12/2024 - carvedilol (COREG) 3.125 mg tablet Take 3.125 mg by mouth two times a day with meals. - clopidogrel (PLAVIX) 75 mg tablet Take 75 mg by mouth once daily. - JARDIANCE 10 mg tablet Take 10 mg by mouth daily with breakfast. - furosemide (LASIX) 40 mg tablet Take 40 mg by mouth once daily. - aspirin, enteric coated (ASPIRIN, ENTERIC COATED) 81 mg EC tablet Take 81 mg by mouth once daily. - amLODIPine (NORVASC) 5 mg tablet Take 1 tablet by mouth once daily. - metoprolol succinate ER (TOPROL XL) 25 mg 24 hr tablet Take 1 tablet by mouth once daily. - atorvastatin (LIPITOR) 80 mg tablet Take 1 tablet by mouth daily at bedtime. For cholesterol. - glimepiride (AMARYL) 1 mg tablet Take 1 tablet by mouth daily with breakfast. - lisinopril (ZESTRIL) 40 mg tablet Take 1 tablet by mouth once daily. - pioglitazone (ACTOS) 15 mg tablet Take 1 tablet by mouth once daily. - povidone, PF, (IVIZIA, PF,) 0.5 % drop Use 1 Drop in eyes three times a day. - blood sugar diagnostic (BLOOD GLUCOSE TEST) test strip Test blood sugar(s) 1 times daily. Dx: E11.9. Insulin: No, Brand covered by insurance - omeprazole (PRILOSEC) 20 mg capsule take 1 capsule by mouth every other day 1/2 HOUR BEFORE BREAKFAST - MULTIVITS, W-CA,FE,OTH MIN (MULTIVITAMIN AND MINERAL ORAL) Take 1 tablet by mouth once daily. - lancets(FREESTYLE LANCETS) use daily - blood glucose control highANDlow(FREESTYLE CONTROL SOLN) use as directed Meds Comments as of 05/09/2019: Problem List As Of Date 10/12/2024 Noted Resolved 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 *07/21/2005 DIFFUS CYSTIC MASTOPATHY [N60.19] 07/21/2005 Chronic cough [R05.3] 08/08/2009 08/30/2015 Essential hypertension, benign [I10] 07/30/2010 Lumbar disc disease with radiculopathy [M51.16] 02/25/2011 Lateral epicondylitis [M77.10] 08/18/2011 07/01/2015 Vitamin D deficiency [E55.9] 08/20/2011 Contact eczematous dermatitis [L25.9] 03/09/2013 03/22/2019 Rash and other nonspecific skin eruption [R21] 03/09/2013 09/29/2018 Actinic keratosis [L57.0] 03/09/2013 03/22/2019 Actinic skin damage [L57.8] 03/09/2013 03/22/2019 Xerosis cutis [L85.3] 03/09/2013 03/22/2019 Carpal tunnel syndrome [G56.00] 09/29/2013 03/22/2019 Gall bladder stones [K80.20] 06/29/2014 10/19/2014 Gall bladder polyp [K82.4] 06/29/2014 10/19/2014 RUQ pain [R10.11] 06/29/2014 10/19/2014 Arteriosclerosis of both carotid arteries [I65.*10/19/2014 Forgetfulness [R68.89] 08/30/2015 Hyperlipidemia LDL goal <100 [E78.5] 02/21/2016 Osteoporosis [M81.0] 03/17/2016 Personal history of colonic polyps [Z86.0100] 10/13/2016 Trochanteric bursitis of left hip [M70.62] 12/07/2016 03/22/2019 Acute blood loss anemia [D62] 09/28/2017 09/29/2018 Closed fracture of hip (HCC) [S72.009A] 09/28/2017 03/22/2019 Acid reflux [K21.9] 09/28/2017 Stress incontinence [N39.3] 09/28/2017 DDD (degenerative disc disease), cervical [M50.*09/29/2018 Encounter Status:Closed by CHINYERE PABON on 10/12/24 [facility] 10-11-2024 Instructions Treva Sandoval APRN.BERNARDO - 10/11/2024 2:14 PM EST Get repeat labs in 1 week to check kidney function Keep scheduled appointment with Cardiology Office will schedule consult with Nephrology Continue to work on eating a low sodium diet, 2000 mg daily Monitor fasting sugars in the morning, continue with Glimepiride, Actos, and Jardiance Hold Lasix for the time being, if you noticed increased shortness of breath, lower leg swelling, or 3-5 lbs weight gain, may use Lasix 40 mg 1/2 tablet as needed in the morning. Follow up as scheduled or sooner pending test results. documented in this encounter [facility] 10-11-2024 History of Present illness Narrative This is a 89 year old female who presents today with: Patient presents with: Follow Up: 4 day Hospital follow up HISTORY OF PRESENT ILLNESS: Lucille Thurman is a 89 year old female. Patient presents with: Follow Up: 4 day Hospital follow up Daughters present at this appointment. HOSPITAL/ER FOLLOW UP: Reason for visit: SOB Which facility: [facility] Date of visit: 10/04/2024-10/08/2024 Diagnosis: Acute hypoxic respiratory failure due to acute on chronic HFpEF. 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 Bun 29, creatinine 1.21, glucose 138, troponin 15, BNP elevated at 496. Chest x-ray showing possible CHF concerns for pulmonary edema. Treatment given: BiPAP, Lasix 40 mg IV, Ativan 0.5 mg, hydralazine. Cardiology consulted, initial troponin was normal however serial troponins were positive concerns for NSTEMI. Echocardiogram completed showed normal left ventricular systolic function. Stage I diastolic dysfunction was noted. Heart cath completed showing Diagnostic cath was done which showed ejection fraction 65%, left main tubular 50%, ostial 50% tubular calcified mid LAD, tubular calcified 50% and mid RCA. Consult nephrology, concerns for NEELIMA from cardiorenal syndrome or concern that increased creatinine could be from recent aggressive diuresis. Will complete urinalysis and renal ultrasound. Recommended that patient hold diuretics for the time being. IV heparin given, echo showed ejection fraction 65%, stage I diastolic function, mild MR mild TR R VSP 41 mg of mercury. Mild concentric LVH. Elevated D-dimer. Started on baby aspirin, carvedilol, Plavix, and Jardiance Lasix on hold due to diuretic use renal ultrasound showed no suspicious hemodynamic findings. Continue to hold lisinopril and furosemide. Advised to have repeat BMP in 2 to 3 days with PCP team determine dose of Lasix and lisinopril accordingly. Current symptoms: Has been feeling well since discharge from hospital . No SOB or chest pain. Instructed to hold lisinopril until 10/14/2024. Blood pressure elevated in the office today. Refers that lower leg swelling is much improved. Will be seeing cardiology tomorrow. Has been holding glimepiride. Last labs were completed in the hospital on 10/08/2024, at that time creatinine was 1.34 and GFR was 48, repeat labs completed on 10/10/2024. Creatinine 1.31 and GFR 39. Medications added on at discharge furosemide 40 mg daily, currently holding due to kidney function. Plavix 75 mg daily, aspirin 81 mg daily, carvedilol 3.125 mg twice daily, Jardiance 10 mg. Instructed to continue with amlodipine 5 mg, Lipitor 80 mg daily, omeprazole 40 mg, Actos 15 mg daily. PAST MEDICAL HISTORY: PAST MEDICAL HISTORY Diagnosis Date Acquired absence of other specified parts of digestive tract Age-related osteoporosis without current pathological fracture Arteriosclerosis of both carotid arteries 10/19/2014 Cataract extraction status, left eye Cataract extraction status, right eye DDD (degenerative disc disease), cervical 09/29/2018 Diverticulosis of colon (without mention of hemorrhage) Diverticulosis Do not resuscitate Essential hypertension, benign 07/30/2010 Gastro-esophageal reflux disease without esophagitis History of fall Hyperlipidemia Inflammatory disease of breast snf (current) use 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 snf (current) use of oral hypoglycemic drugs Lumbar disc disease with radiculopathy 02/25/2011 Osteoporosis 03/17/2016 Personal history of (healed) traumatic fracture Presence of left artificial shoulder joint Right carotid bruit 10/16/2014 Type II or unspecified type diabetes mellitus without mention of complication, not stated as uncontrolled Unspecified hearing loss, bilateral Vitamin D deficiency 08/20/2011 PAST SURGICAL HISTORY Procedure Laterality Date APPENDECTOMY BX BREAST NEEDLE CORE W/O IMAGING GUIDANCE SPX cant recall which breast COLONOSCOPY FLX DX W/COLLJ SPEC WHEN PFRMD 07/25/2001 Colonoscopy CORRJ HLX VLGS BNCTY SESMDC DSTL METAR OSTEOT cant remember which foot ESOPHAGOGASTRODUODENOSCOPY TRANSORAL DIAGNOSTIC 2014 Erosive gastritis, duodenal bulb ulcer LAPS SURG CHOLECYSTECTOMY W/CHOLANGIOGRAPHY 08-02-14 MRCP 2015 subcentimeter cyst MYRINGOTOMY ASPIR&/EUSTACHIAN TUBE NFLTJ ANES Myringotomy/tubes, right NEUROPLASTY &/TRANSPOS MEDIAN NRV CARPAL TUNNE 10-20-13 RIGHT PAST SURGICAL HISTORY OF skin CA face PAST SURGICAL HISTORY OF left partial shoulder replacement PULMONARY FUNCTION TEST ALLERGIES Metformin, Morphine, Oxycodone, and Prevacid [Lansoprazole] MEDICATIONS Current Outpatient Medications Medication Sig amLODIPine (NORVASC) 5 mg tablet Take 1 tablet by mouth once daily. metoprolol succinate ER (TOPROL XL) 25 mg 24 hr tablet Take 1 tablet by mouth once daily. atorvastatin (LIPITOR) 80 mg tablet Take 1 tablet by mouth daily at bedtime. For cholesterol. glimepiride (AMARYL) 1 mg tablet Take 1 tablet by mouth daily with breakfast. lisinopril (ZESTRIL) 40 mg tablet Take 1 tablet by mouth once daily. pioglitazone (ACTOS) 15 mg tablet Take 1 tablet by mouth once daily. povidone, PF, (IVIZIA, PF,) 0.5 % drop Use 1 Drop in eyes three times a day. blood sugar diagnostic (BLOOD GLUCOSE TEST) test strip Test blood sugar(s) 1 times daily. Dx: E11.9. Insulin: No, Brand covered by insurance omeprazole (PRILOSEC) 20 mg capsule take 1 capsule by mouth every other day 1/2 HOUR BEFORE BREAKFAST MULTIVITS,TH W-CA,FE,OTH MIN (MULTIVITAMIN AND MINERAL ORAL) Take 1 tablet by mouth once daily. lancets(FREESTYLE LANCETS) use daily blood glucose control high&low(FREESTYLE CONTROL SOLN) use as directed No current facility-administered medications for this visit. FAMILY HISTORY Problem Relation Age of Onset Diabetes Mother Heart Mother COPD Father Colon Cancer Sister Diabetes Sister Alcohol abuse Sister COPD Sister COPD Sister Diabetes Brother Kidney Disease Brother Kidney Disease Brother Diabetes Daughter Social History Tobacco Use Smoking status: Never Smokeless tobacco: Never Vaping Use Vaping status: Never Used Substance Use Topics Alcohol use: No Drug use: No REVIEW OF SYSTEMS GENERAL: No weight loss, malaise or fevers/chills HEENT: Negative for frequent or significant headaches, No changes in hearing or vision. NECK: Negative for lumps, goiter, pain and significant neck swelling RESPIRATORY: Negative for cough, hemoptysis, wheezing, dyspnea or shortness of breath CARDIOVASCULAR: Negative for chest pain, leg swelling, orthopnea, or palpitations GI: No nausea, vomiting, or diarrhea/constipation. No hematochezia/melena. No heartburn or reflux symptoms. : No history of dysuria, frequency or incontinence MUSCULOSKELETAL: Negative for joint pain or swelling. SKIN: Negative for lesions, rash, and itching ENDOCRINE: Negative for cold or heat intolerance, polyuria, polydipsia and goiter NEURO: No history of headaches, syncope, paralysis, seizures or tremors MOOD: Negative for depression, anxiety, or suicidal ideation. EXAM: BP 140/68 Pulse 71 Resp 16 Wt 70 kg (154 lb 5.2 oz) SpO2 100% BMI 27.34 kg/m PHYSICAL EXAM: General Appearance: Well appearing, alert, in no acute distress, well-hydrated, well nourished. Skin: Skin color, texture, turgor normal, no suspicious rashes or lesions. Head: Normocephalic, no masses, lesions, tenderness or abnormalities. Eyes: Anicteric sclera. Extraocular movements are intact. Lungs: Lungs clear to auscultation. No wheezing, rhonchi, rales. Heart: RRR without murmur, gallop, or rubs. No ectopy. Extremities: +1 non-pitting edema noted to bilateral lower legs, no erythema. Peripheral Pulses: Normal, Capillary refill <2secs, strong peripheral pulses, Pulses palpable. Neurologic: Gait normal. Sensation grossly intact.. Latest Ref [facility] 10/10/2024 WBC 3.70 - 11.00 k/uL 7.31 RBC 3.90 - 5.20 m/uL 3.49 (L) Hemoglobin 11.5 - 15.5 g/dL 10.6 (L) Hematocrit 36.0 - 46.0 % 33.1 (L) MCV 80.0 - 100.0 fL 94.8 MCH 26.0 - 34.0 pg 30.4 MCHC 30.5 - 36.0 g/dL 32.0 RDW-CV 11.5 - 15.0 % 13.7 Platelet Count 150 - 400 k/uL 223 MPV 9.0 - 12.7 fL 9.7 Neut% % 72.8 Abs Neut (ANC) 1.45 - 7.50 k/uL 5.32 Lymph% % 14.5 Abs Lymph 1.00 - 4.00 k/uL 1.06 Dakota% % 9.0 Abs Dakota <0.87 k/uL 0.66 Eosin% % 2.6 Abs Eosin <0.46 k/uL 0.19 Baso% % 0.8 Abs Baso <0.11 k/uL 0.06 Immature Gran % % 0.3 IMMATURE GRANS (ABS) <0.10 k/uL <0.03 NRBC /100 WBC 0.0 Absolute nRBC <0.01 k/uL <0.01 DTYPE Auto Protein, Total 6.3 - 8.0 g/dL 7.3 Albumin 3.9 - 4.9 g/dL 3.9 Calcium 8.5 - 10.2 mg/dL 9.4 Bilirubin, Total 0.2 - 1.3 mg/dL 0.7 Alkaline Phosphatase 34 - 123 U/L 82 AST 13 - 35 U/L 37 (H) ALT 7 - 38 U/L 32 Glucose 74 - 99 mg/dL 151 (H) BUN 7 - 21 mg/dL 28 (H) Creatinine 0.58 - 0.96 mg/dL 1.31 (H) Sodium 136 - 144 mmol/L 139 Potassium 3.7 - 5.1 mmol/L 4.5 Chloride 98 - 107 mmol/L 107 CO2 22 - 30 mmol/L 23 Anion Gap 8 - 15 mmol/L 9 eGFR >=60 mL/min/1.73m 39 (L) Legend: (L) Low (H) High ASSESSMENT/PLAN: 1. Hospital discharge follow-up - ICD9: V67.59, ICD10: Z09 (primary diagnosis) - Stable since hospital discharge 2. Congestive heart failure, unspecified HF chronicity, unspecified heart failure type (HCC) - ICD9: 428.0, ICD10: I50.9 - Stable, continue to take current medication. - Recommend continuing to hold Lasix at this time due to decreased kidney function. If she develops increasing SOB or lower leg swelling may use Lasix 40 mg 1/2 tablet as needed. - Watch salt and processed foods in the diet. - Keep up coming appointment with cardiology 3. Elevated troponin - ICD9: 790.6, ICD10: R79.89 - Same plan as #2 4. Essential hypertension, benign - ICD9: 401.1, ICD10: I10 - Uncontrolled - Continue current medications - Recommend home blood pressure monitoring, to bring results to next visit - Encouraged sodium restriction, DASH or Mediterranean diet - Recommend regular aerobic exercise - May start back on Lisinopril, discuss tomorrow with cardiology 5. Stage 3 chronic kidney disease, unspecified whether stage 3a or 3b CKD (HCC) - ICD9: 585.3, ICD10: N18.30 - eGFR: 39 Worsening - Counseled on avoiding NSAIDs, adequate hydration - Counseled on low sodium diet - Continue with Jardiance - Get repeat labs next Wednesday to check kidney function. - Schedule follow up with Nephrology, Dr. Coates or Dr. Menjivar - COMPREHENSIVE METABOLIC PANEL 6. 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 3 chronic kidney disease, without long-term current use of insulin (HCC) - ICD9: 250.40, 585.3, ICD10: E11.22, N18.30 - Control undetermined, due for labs - Continue current medications - Counseled on healthy diet and regular exercise - Discussed need for and benefit of weight loss. BMI 27.34 kg/(m^2) - Instructed to monitor fasting sugars at home - eGFR: 39 Worsening Follow-up as scheduled or sooner pending lab results. Discussed treatment plan and patient voices understanding. Patient's questions answered appropriately. Medications and potential side effects were discussed and patient voices understanding. Treva Sandoval APRN.CNP This note was partially generated using [employer] voice recognition system. Note was reviewed for accuracy. There may be minor misspellings or grammar miscues with [employer] voice recognition. documented in this encounter [facility] 10-11-2024 Note HNO ID: [id number] Author: TREVA SANDOVAL APRN.CNP Service: ? Author Type: Nurse Practitioner Type: Progress Notes Filed: 10/11/2024 17:34 Note Text: This is a 89 year old female who presents today with: Patient presents with: Follow Up: 4 day Hospital follow up HISTORY OF PRESENT ILLNESS: Lucille Thurman is a 89 year old female. Patient presents with: Follow Up: 4 day Hospital follow up Daughters present at this appointment. HOSPITAL/ER FOLLOW UP: Reason for visit: SOB Which facility: [facility] Date of visit: 10/04/2024-10/08/2024 Diagnosis: Acute hypoxic respiratory failure due to acute on chronic HFpEF. 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 Bun 29, creatinine 1.21, glucose 138, troponin 15, BNP elevated at 496. Chest x-ray showing possible CHF concerns for pulmonary edema. Treatment given: BiPAP, Lasix 40 mg IV, Ativan 0.5 mg, hydralazine. Cardiology consulted, initial troponin was normal however serial troponins were positive concerns for NSTEMI. Echocardiogram completed showed normal left ventricular systolic function. Stage I diastolic dysfunction was noted. Heart cath completed showing Diagnostic cath was done which showed ejection fraction 65%, left main tubular 50%, ostial 50% tubular calcified mid LAD, tubular calcified 50% and mid RCA. Consult nephrology, concerns for NEELIMA from cardiorenal syndrome or concern that increased creatinine could be from recent aggressive diuresis. Will complete urinalysis and renal ultrasound. Recommended that patient hold diuretics for the time being. IV heparin given, echo showed ejection fraction 65%, stage I diastolic function, mild MR mild TR R VSP 41 mg of mercury. Mild concentric LVH. Elevated D-dimer. Started on baby aspirin, carvedilol, Plavix, and Jardiance Lasix on hold due to diuretic use renal ultrasound showed no suspicious hemodynamic findings. Continue to hold lisinopril and furosemide. Advised to have repeat BMP in 2 to 3 days with PCP team determine dose of Lasix and lisinopril accordingly. Current symptoms: Has been feeling well since discharge from hospital . No SOB or chest pain. Instructed to hold lisinopril until 10/14/2024. Blood pressure elevated in the office today. Refers that lower leg swelling is much improved. Will be seeing cardiology tomorrow. Has been holding glimepiride. Last labs were completed in the hospital on 10/08/2024, at that time creatinine was 1.34 and GFR was 48, repeat labs completed on 10/10/2024. Creatinine 1.31 and GFR 39. Medications added on at discharge furosemide 40 mg daily, currently holding due to kidney function. Plavix 75 mg daily, aspirin 81 mg daily, carvedilol 3.125 mg twice daily, Jardiance 10 mg. Instructed to continue with amlodipine 5 mg, Lipitor 80 mg daily, omeprazole 40 mg, Actos 15 mg daily. PAST MEDICAL HISTORY: PAST MEDICAL HISTORY Diagnosis Date Acquired absence of other specified parts of digestive tract Age-related osteoporosis without current pathological fracture Arteriosclerosis of both carotid arteries 10/19/2014 Cataract extraction status, left eye Cataract extraction status, right eye DDD (degenerative disc disease), cervical 09/29/2018 Diverticulosis of colon (without mention of hemorrhage) Diverticulosis Do not resuscitate Essential hypertension, benign 07/30/2010 Gastro-esophageal reflux disease without esophagitis History of fall Hyperlipidemia Inflammatory disease of breast 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 snf (current) use of oral hypoglycemic drugs Lumbar disc disease with radiculopathy 02/25/2011 Osteoporosis 03/17/2016 Personal history of (healed) traumatic fracture Presence of left artificial shoulder joint Right carotid bruit 10/16/2014 Type II or unspecified type diabetes mellitus without mention of complication, not stated as uncontrolled Unspecified hearing loss, bilateral Vitamin D deficiency 08/20/2011 PAST SURGICAL HISTORY Procedure Laterality Date APPENDECTOMY BX BREAST NEEDLE CORE W/O IMAGING GUIDANCE SPX cant recall which breast COLONOSCOPY FLX DX W/COLLJ SPEC WHEN PFRMD 07/25/2001 Colonoscopy CORRJ HLX VLGS BNCTY SESMDC DSTL METAR OSTEOT cant remember which foot ESOPHAGOGASTRODUODENOSCOPY TRANSORAL DIAGNOSTIC 2014 Erosive gastritis, duodenal bulb ulcer LAPS SURG CHOLECYSTECTOMY W/CHOLANGIOGRAPHY 08-02-14 MRCP 2015 subcentimeter cyst MYRINGOTOMY ASPIRAND/EUSTACHIAN TUBE NFLTJ ANES Myringotomy/tubes, right NEUROPLASTY AND/TRANSPOS MEDIAN NRV CARPAL TUNNE 10-20-13 RIGHT PAST SURGICAL HISTORY OF skin CA face PAST SURGICAL HISTORY OF left partial shoulder replacement PULMONARY FUNCTION TEST ALLERGIES Metformin, Morphine, Oxycodone, and Prevacid [Lansoprazole] MEDICATIONS Current Outpatient Medications Medication Sig amLODIPine (NORVASC) 5 mg tablet Take 1 tablet by (more content not included)... [facility] 10-09-2024 Note Addended by: TREVA SANDOVAL on: 10/09/2024 09:40 AM Modules accepted: Orders [facility] 10-09-2024 Telephone encounter Note Noted, CMP and CBC placed, RX for amlodipine sent to pharmacy. Thank you Treva Sandoval APRN.PUBLIC RELATIONS OFFICER [facility] 10-09-2024 Miscellaneous Notes Addended by: TREVA SANDOVAL on: 10/09/2024 09:40 AM Modules accepted: Orders Noted, CMP and CBC placed, RX for amlodipine sent to pharmacy. Thank you Treva Sandoval APRN.PUBLIC RELATIONS OFFICER Talked to Pt son in law. Pt needs labs today and appointment on Weds. Pt also needs a Rx of amlodipine 5 mg sent to [facility]. Arnold Gottlieb LPN documented in this encounter [facility] 10-09-2024 Telephone encounter Note Talked to Pt son in law. Pt needs labs today and appointment on Weds. Pt also needs a Rx of amlodipine 5 mg sent to [facility]. Arnold Gottlieb LPN [facility] 10-08-2024 Note [facility] Medical Records Department [address] [place] [address] Discharge Summary 10/08/24 1019 MR#: [id number] Acct: [id number] Name: LUCILLE THURMAN Rep #: [id number] : 1935 89 From: Tone Bethea MD PCP: AMAURY Louise Status:ADM IN Location: [place] [id number] Providers Date of Admission: 10/04/24 Date of Discharge: 10/08/24 Primary Care Physician: AMAURY Louise Consultations 10/05/24 10:47 Consult: Cardiology Routine Consulting Provider: Jonah Bashir Reason for Consult: NSTEMI EMERGENT Consult: No MD Notified: Yes Date Notified: 10/05/24 Time Notified: 10:47 Method of Notification: Text 10/07/24 09:08 Consult: Nephrology Routine Consulting Provider: Shanelle Daly Reason for Consult: NEELIMA on CKD, WILI EMERGENT Consult: No MD Notified: Yes Date Notified: 10/07/24 Time Notified: 09:08 Method of Notification: Text Reason For Visit: ACUTE HYPOXIC RESPIRATORY FAILURE Diagnosis Discharge Diagnosis (1) Acute hypoxic respiratory failure: Status: Acute Code(s): J96.01 - Acute respiratory failure with hypoxia (2) Elevated brain natriuretic peptide (BNP) level: Status: Acute Code(s): R79.89 - Other specified abnormal findings of blood chemistry (3) Shortness of breath: Status: Acute Code(s): R06.02 - Shortness of breath Plan 89-year-old female was admitted with shortness of breath, wheezing, respiratory distress and occasional left-sided chest heaviness. Her legs are also swollen. Denies any history of COPD or CHF 1. Acute hypoxic respiratory failure due to acute on chronic HFpEF: Patient is being admitted in PCU. Was admitted on BiPAP for respiratory distress. Initial ABG showed PaO2 105 on 50% FiO2 on BiPAP suggestive of high Aa gradient. Weaned down to 94% on room air. Chest x-ray individually reviewed and consistent with pulmonary edema. Heart failure core measures including intake and output, fluid restriction less than 1500 mL, daily weight monitoring, kidney and electrolytes monitoring. Patient on Lasix drip. Elevated BNP. Triple PCR for SARS-CoV-2, flu and RSV are negative. Respiratory panel negative 10/06: Pulse ox varies 96% on room air.Patient is not short of breath. 2. High hs- troponin with concern of non-STEMI and acute on chronic HFpEF: Patient troponin progressively increased 15, 775, 1024 and 1362. Started on aspirin. Patient on IV heparin drip. 2D echo shows EF 65%, stage I diastolic function, mild MR mild TR RVSP 41 mmHg. Mild concentric LVH. Does not mention about wall motion abnormality. Storyboard Artist consulted. 10/06: Elevated D-dimer 0.89 but age-adjusted is also 0.89 therefore normal for age. She denies prior history of DVT/PE. IV contrast is contraindicated. Venous duplex ordered to rule out DVT Pharmacological nuclear stress test shows mildly reduced perfusion of anterior wall and apex, post pharmacological stress suggestive of ischemia. Subsequently diagnostic cath was done which shows EF 65%, left main tubular 50% ostial, 50% tubular calcified mid LAD. Tubular calcified 50% and mid RCA. Medical management was recommended. 10/07: No acute issues last 2 day. 10/08: Prescription given for baby aspirin, carvedilol, Plavix and empagliflozin 3. 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 Repeat BUN/creatinine 36/1.34 slightly went up. Continue Lasix drip. Electrolytes in normal range. K low normal 3.6. Add low-dose spironolactone and carvedilol. -Lisinopril on hold for now due to diuretic use not because of CKD 10/06: Her creatinine went up from 1.34-1.67. Probably due to diuretic therefore furosemide spironolactone discontinued. K3.5 therefore 1 dose KCl 40 mEq. 10/07: Creatinine went up to 1.8. Discussed with the software deployment engineer. Renal ultrasound ordered. UA shows LE 25, RBC 0, WBC 0, bacteria 0, nitrite negative. No prolonged period of hypotension. NEELIMA probably from cardiorenal syndrome. Urine BUN increased suggestive of prerenal. Diuretic is on hold for last 2 days 10/08: Creatinine improved to 1.34. No demonstrated calculi. Renal ultrasound reported no suspicious hemodynamic findings. Continue holding lisinopril and furosemide. Advised BMP in 2 to 3 days with PCP and adjust the dose of Lasix and lisinopril accordingly. Prescription for furosemide given but not to start before the lab test and consultation with PCP. Patient is discharged after the software deployment engineer recommendation. DM-2 -Oral hypoglycemic agents held while inpatient. Accu-Chek before meals and at bedtime with Humalog sliding scale coverage and hypoglycemia protocol. -Glucose reasonably controlled 10/06: Glucose 142. 10/07: Glucoses controlled. 10/08: Glimepiride was held, patient can resume tomorrow lower dose 2 mg daily because of NEELIMA. Essential hypertension/hyperlipidemia -Continue home atorvastatin -Hold home lisin (more content not included)... [facility] 10-04-2024 Telephone encounter Note Triage Protocol Recommended: Call 911 now. Pt agreeable. Patient's daughter is with patient and agreeable to call squad now. Reason for Disposition SEVERE difficulty breathing (e.g., struggling for each breath, speaks in single words) Answer Assessment - Initial Assessment Questions Patient calling with concern for severe SOB, weakness, paleness in color and wheezing. Pt's daughter is with patient and is assisting patient with call. Reports over the last several days she has been becoming more SOB but has not informed her family. Patient is alert and oriented during call. Answering questions appropriately. 1. RESPIRATORY STATUS: Describe your breathing? (e.g., wheezing, shortness of breath, unable to speak, severe coughing) Short of breath at rest and severe SOB after walking short distance 2. ONSET: When did this breathing problem begin? Within the last week/several days 3. PATTERN Does the difficult breathing come and go, or has it been constant since it started? varies 4. SEVERITY: How bad is your breathing? (e.g., mild, moderate, severe) - MILD: No SOB at rest, mild SOB with walking, speaks normally in sentences, can lie down, no retractions, pulse < 100. - MODERATE: SOB at rest, SOB with minimal exertion and prefers to sit, cannot lie down flat, speaks in phrases, mild retractions, audible wheezing, pulse 100 to 120. - SEVERE: Very SOB at rest, speaks in single words, struggling to breathe, sitting hunched forward, retractions, pulse > 120 Severe during call 5. RECURRENT SYMPTOM: Have you had difficulty breathing before? If Yes, ask: When was the last time? and What happened that time? Yes, worse now 6. CARDIAC HISTORY: Do you have any history of heart disease? (e.g., heart attack, angina, bypass surgery, angioplasty) Yes, see history 7. LUNG HISTORY: Do you have any history of lung disease? (e.g., pulmonary embolus, asthma, emphysema) (See history) 8. CAUSE: What do you think is causing the breathing problem? unknown 9. OTHER SYMPTOMS: Do you have any other symptoms? (e.g., chest pain, cough, dizziness, fever, runny nose) Reports severe SOB during call, weakness, daughter reports patient appears pale in color, audible wheezing per daughter. Current BP 177/107 pulse 81. Took Lisinopril medication about 2.5 hours ago. Has not taken Metoprolol yet. No chest pain, cough, dizziness, fever, runny nose. 10. O2 SATURATION MONITOR: Do you use an oxygen saturation monitor (pulse oximeter) at home? If Yes, ask: What is your reading (oxygen level) today? What is your usual oxygen saturation reading? (e.g., 95%) (No monitor) 11. : Is there any chance you are ? When was your last menstrual period? no 12. TRAVEL: Have you traveled out of the country in the last month? (e.g., travel history, exposures) no Protocols used: Breathing [id number] [facility] 10-04-2024 Miscellaneous Notes Triage Protocol Recommended: Call 911 now. Pt agreeable. Patient's daughter is with patient and agreeable to call squad now. Reason for Disposition SEVERE difficulty breathing (e.g., struggling for each breath, speaks in single words) Answer Assessment - Initial Assessment Questions Patient calling with concern for severe SOB, weakness, paleness in color and wheezing. Pt's daughter is with patient and is assisting patient with call. Reports over the last several days she has been becoming more SOB but has not informed her family. Patient is alert and oriented during call. Answering questions appropriately. 1. RESPIRATORY STATUS: Describe your breathing? (e.g., wheezing, shortness of breath, unable to speak, severe coughing) Short of breath at rest and severe SOB after walking short distance 2. ONSET: When did this breathing problem begin? Within the last week/several days 3. PATTERN Does the difficult breathing come and go, or has it been constant since it started? varies 4. SEVERITY: How bad is your breathing? (e.g., mild, moderate, severe) - MILD: No SOB at rest, mild SOB with walking, speaks normally in sentences, can lie down, no retractions, pulse < 100. - MODERATE: SOB at rest, SOB with minimal exertion and prefers to sit, cannot lie down flat, speaks in phrases, mild retractions, audible wheezing, pulse 100 to 120. - SEVERE: Very SOB at rest, speaks in single words, struggling to breathe, sitting hunched forward, retractions, pulse > 120 Severe during call 5. RECURRENT SYMPTOM: Have you had difficulty breathing before? If Yes, ask: When was the last time? and What happened that time? Yes, worse now 6. CARDIAC HISTORY: Do you have any history of heart disease? (e.g., heart attack, angina, bypass surgery, angioplasty) Yes, see history 7. LUNG HISTORY: Do you have any history of lung disease? (e.g., pulmonary embolus, asthma, emphysema) (See history) 8. CAUSE: What do you think is causing the breathing problem? unknown 9. OTHER SYMPTOMS: Do you have any other symptoms? (e.g., chest pain, cough, dizziness, fever, runny nose) Reports severe SOB during call, weakness, daughter reports patient appears pale in color, audible wheezing per daughter. Current BP 177/107 pulse 81. Took Lisinopril medication about 2.5 hours ago. Has not taken Metoprolol yet. No chest pain, cough, dizziness, fever, runny nose. 10. O2 SATURATION MONITOR: Do you use an oxygen saturation monitor (pulse oximeter) at home? If Yes, ask: What is your reading (oxygen level) today? What is your usual oxygen saturation reading? (e.g., 95%) (No monitor) 11. : Is there any chance you are ? When was your last menstrual period? no 12. TRAVEL: Have you traveled out of the country in the last month? (e.g., travel history, exposures) no Protocols used: Breathing [id number] documented in this encounter [facility] 09-18-2024 Telephone encounter Note Patient notified of update., verbalizes understanding of instructions. Pt stated she is not having any problems on the medication. Except the low diastolic. Advise Pt of taking 1/2 tabs. Pt stated she will try that and send updates on BP. Arnold Gottlieb LPN [facility] 09-18-2024 Miscellaneous Notes Patient notified of update., verbalizes understanding of instructions. Pt stated she is not having any problems on the medication. Except the low diastolic. Advise Pt of taking 1/2 tabs. Pt stated she will try that and send updates on BP. Arnold Gottlieb LPN Can you please call the patient back and let her know that her blood pressure is looking better. However her diastolic seems on the low side. Is she is having any dizziness or feeling unsteady on her feet since starting medication? If so we can cut dose in half and take 1/2 tablet in the morning and 1/2 tablet in the evening. Treva Sandoval APRN.BERNARDO Patient calls with updated blood pressure readings since she started on metoprolol. Patient reports that on Wednesday (09/16) her blood pressure was 118/46. Yesterday (09/17) her blood pressure at 1 pm was 145/53 and at 11 pm it was 141/52. Patient reports that she had went to exercise today and had gotten along fine. Patient reports that when she got home she decided to roller picker sticks around her trailer. Patient states that she had to sit down after picking up stick. Please review and advise, Marlena Hampton RN documented in this encounter [facility] 09-18-2024 Telephone encounter Note Can you please call the patient back and let her know that her blood pressure is looking better. However her diastolic seems on the low side. Is she is having any dizziness or feeling unsteady on her feet since starting medication? If so we can cut dose in half and take 1/2 tablet in the morning and 1/2 tablet in the evening. Treva Sandoval APRN.BERNARDO [facility] 09-18-2024 Telephone encounter Note Patient calls with updated blood pressure readings since she started on metoprolol. Patient reports that on Wednesday (09/16) her blood pressure was 118/46. Yesterday (09/17) her blood pressure at 1 pm was 145/53 and at 11 pm it was 141/52. Patient reports that she had went to exercise today and had gotten along fine. Patient reports that when she got home she decided to roller picker sticks around her trailer. Patient states that she had to sit down after picking up stick. Please review and advise, Marlena Hampton RN [facility] 09-14-2024 Instructions Treva Sandoval APRN.PUBLIC RELATIONS OFFICER - 09/14/2024 11:46 AM EST Stop amlodipine, leg swelling should improve. Elevate the legs when possible. Add on Lopressor XL 25 mg daily Continue to monitor blood pressure at home, goal 130/80 or less. May consider consult with Nephrology in the future. Medication refills provided. Follow up if needed. [place], leaving the clinic take a right, turn left onto [address], Turn right at the next light, Office is on the left hand side next to [place] documented in this encounter [facility] 09-14-2024 History of Present illness Narrative This is a 89 year old female who presents today with: Patient presents with: Follow Up: Blood pressure HISTORY OF PRESENT ILLNESS: Lucille Thurman is a 89 year old female. Patient presents with: Follow Up: Blood pressure Here in the office for blood pressure follow up. Earlier this month increased amlodipine 5 mg BID, still taking Lisinopril 40 mg daily. Checking BP at [id number]'s-160/50-70's. Has noticed increased lower leg swelling since increasing Amlodipine. Denies chest pain, palpitations, or dizziness. No SOB. PAST MEDICAL HISTORY: PAST MEDICAL HISTORY Diagnosis Date Acquired absence of other specified parts of digestive tract Age-related osteoporosis without current pathological fracture Arteriosclerosis of both carotid arteries 10/19/2014 Cataract extraction status, left eye Cataract extraction status, right eye DDD (degenerative disc disease), cervical 09/29/2018 Diverticulosis of colon (without mention of hemorrhage) Diverticulosis Do not resuscitate Essential hypertension, benign 07/30/2010 Gastro-esophageal reflux disease without esophagitis History of fall Hyperlipidemia Inflammatory disease of breast snf (current) use 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 hypoglycemic drugs Lumbar disc disease with radiculopathy 02/25/2011 Osteoporosis 03/17/2016 Personal history of (healed) traumatic fracture Presence of left artificial shoulder joint Right carotid bruit 10/16/2014 Type II or unspecified type diabetes mellitus without mention of complication, not stated as uncontrolled Unspecified hearing loss, bilateral Vitamin D deficiency 08/20/2011 PAST SURGICAL HISTORY Procedure Laterality Date APPENDECTOMY BX BREAST NEEDLE CORE W/O IMAGING GUIDANCE SPX cant recall which breast COLONOSCOPY FLX DX W/COLLJ SPEC WHEN PFRMD 07/25/2001 Colonoscopy CORRJ HLX VLGS BNCTY SESMDC DSTL METAR OSTEOT cant remember which foot ESOPHAGOGASTRODUODENOSCOPY TRANSORAL DIAGNOSTIC 2014 Erosive gastritis, duodenal bulb ulcer LAPS SURG CHOLECYSTECTOMY W/CHOLANGIOGRAPHY 08-02-14 MRCP 2015 subcentimeter cyst MYRINGOTOMY ASPIR&/EUSTACHIAN TUBE NFLTJ ANES Myringotomy/tubes, right NEUROPLASTY &/TRANSPOS MEDIAN NRV CARPAL TUNNE 10-20-13 RIGHT PAST SURGICAL HISTORY OF skin CA face PAST SURGICAL HISTORY OF left partial shoulder replacement PULMONARY FUNCTION TEST ALLERGIES Metformin, Morphine, Oxycodone, and Prevacid [Lansoprazole] MEDICATIONS Current Outpatient Medications Medication Sig amLODIPine (NORVASC) 5 mg tablet Take 1 tablet by mouth once daily. blood sugar diagnostic (BLOOD GLUCOSE TEST) test strip Test blood sugar(s) 1 times daily. Dx: E11.9. Insulin: No, Brand covered by insurance omeprazole (PRILOSEC) 20 mg capsule take 1 capsule by mouth every other day 1/2 HOUR BEFORE BREAKFAST glimepiride (AMARYL) 1 mg tablet Take 1 tablet by mouth daily with breakfast. lisinopril (ZESTRIL) 40 mg tablet Take 1 tablet by mouth once daily. pioglitazone (ACTOS) 15 mg tablet Take 1 tablet by mouth once daily. atorvastatin (LIPITOR) 80 mg tablet Take 1 tablet by mouth daily at bedtime. For cholesterol. polyethylene glycol 3350 (MIRALAX) 17 gram/dose powder Take one scoop daily with glass of juice/water/etc. (Patient taking differently: as needed. Take one scoop daily with glass of juice/water/etc.) MULTIVITS,TH W-CA,FE,OTH MIN (MULTIVITAMIN AND MINERAL ORAL) Take 1 tablet by mouth once daily. lancets(FREESTYLE LANCETS) use daily blood glucose control high&low(FREESTYLE CONTROL SOLN) use as directed No current facility-administered medications for this visit. FAMILY HISTORY Problem Relation Age of Onset Diabetes Mother Heart Mother COPD Father Colon Cancer Sister Diabetes Sister Alcohol abuse Sister COPD Sister COPD Sister Diabetes Brother Kidney Disease Brother Kidney Disease Brother Diabetes Daughter Social History Tobacco Use Smoking status: Never Smokeless tobacco: Never Vaping Use Vaping status: Never Used Substance Use Topics Alcohol use: No Drug use: No REVIEW OF SYSTEMS GENERAL: No weight loss, malaise or fevers/chills HEENT: Negative for frequent or significant headaches, No changes in hearing or vision. NECK: Negative for lumps, goiter, pain and significant neck swelling RESPIRATORY: Negative for cough, hemoptysis, wheezing, dyspnea or shortness of breath CARDIOVASCULAR: Negative for chest pain, orthopnea, or palpitations + Leg swelling GI: No nausea, vomiting, or diarrhea/constipation. No hematochezia/melena. No heartburn or reflux symptoms. : No history of dysuria, frequency or incontinence MUSCULOSKELETAL: Negative for joint pain or swelling. SKIN: Negative for lesions, rash, and itching ENDOCRINE: Negative for cold or heat intolerance, polyuria, polydipsia and goiter NEURO: No history of headaches, syncope, paralysis, seizures or tremors MOOD: Negative for depression, anxiety, or suicidal ideation. EXAM: BP 155/73 (BP Site: Right Arm, BP Position: Sitting, BP Cuff Size: Regular Adult) Pulse 75 Wt 73 kg (161 lb) SpO2 98% BMI 28.52 kg/m PHYSICAL EXAM: General Appearance: Well appearing, alert, in no acute distress, well-hydrated, well nourished. Skin: Skin color, texture, turgor normal, no suspicious rashes or lesions. Head: Normocephalic, no masses, lesions, tenderness or abnormalities. Eyes: Anicteric sclera. Extraocular movements are intact. Lungs: Lungs clear to auscultation. No wheezing, rhonchi, rales. Heart: RRR without murmur, gallop, or rubs. No ectopy. Extremities: +2 nonpitting edema noted to lower legs bilaterally, no erythema noted. Peripheral Pulses: Normal, Capillary refill <2secs, strong peripheral pulses, Pulses palpable. Neurologic: Gait normal. Sensation grossly intact. ASSESSMENT/PLAN: 1. Bilateral leg edema - ICD9: 782.3, ICD10: R60.0 (primary diagnosis) - Stop Amlodipine - Use compression socks and elevate the legs when possible. - Due to kidney function not using a diuretic at this time. 2. Essential hypertension, benign - ICD9: 401.1, ICD10: I10 - Uncontrolled - Continue current medications - Start metoprolol succinate - Recommend home blood pressure monitoring, to bring results to next visit - Encouraged sodium restriction, DASH or Mediterranean diet - Recommend regular aerobic exercise - Discussed need for and benefit of weight loss. BMI 28.52 kg/(m^2) - If no improvement recommend consult with Nephrology in the future. - METOPROLOL SUCCINATE ER 25 MG TABLET,EXTENDED RELEASE 24 HR - CONSULT TO NEPHROLOGY - LISINOPRIL 40 MG TABLET 3. Stage 3 chronic kidney disease, unspecified whether stage 3a or 3b CKD (HCC) - ICD9: 585.3, ICD10: N18.30 - CONSULT TO NEPHROLOGY 4. Hyperlipidemia LDL goal <100 - ICD9: 272.4, ICD10: E78.5 - Stable, refill provided. - ATORVASTATIN 80 MG TABLET 5. 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 3 chronic kidney disease, without long-term current use of insulin (HCC) - ICD9: 250.40, 585.3, ICD10: E11.22, N18.30 - Refill provided. - GLIMEPIRIDE 1 MG TABLET 6. Dry eye - ICD9: 375.15, ICD10: H04.129 - Refill provided. - IVIZIA (PF) 0.5 % EYE DROPS Follow-up in 1 month or sooner as needed. Discussed treatment plan and patient voices understanding. Patient's questions answered appropriately. Medications and potential side effects were discussed and patient voices understanding. Treva Sandoval APRN.CNP This note was partially generated using [employer] voice recognition system. Note was reviewed for accuracy. There may be minor misspellings or grammar miscues with [employer] voice recognition. documented in this encounter [facility] 09-14-2024 Note HNO ID: [id number] Author: TREVA SANDOVAL APRN.CNP Service: ? Author Type: Nurse Practitioner Type: Progress Notes Filed: 09/14/2024 14:01 Note Text: This is a 89 year old female who presents today with: Patient presents with: Follow Up: Blood pressure HISTORY OF PRESENT ILLNESS: Lucille Thurman is a 89 year old female. Patient presents with: Follow Up: Blood pressure Here in the office for blood pressure follow up. Earlier this month increased amlodipine 5 mg BID, still taking Lisinopril 40 mg daily. Checking BP at [id number]'s-160/50-70's. Has noticed increased lower leg swelling since increasing Amlodipine. Denies chest pain, palpitations, or dizziness. No SOB. PAST MEDICAL HISTORY: PAST MEDICAL HISTORY Diagnosis Date Acquired absence of other specified parts of digestive tract Age-related osteoporosis without current pathological fracture Arteriosclerosis of both carotid arteries 10/19/2014 Cataract extraction status, left eye Cataract extraction status, right eye DDD (degenerative disc disease), cervical 09/29/2018 Diverticulosis of colon (without mention of hemorrhage) Diverticulosis Do not resuscitate Essential hypertension, benign 07/30/2010 Gastro-esophageal reflux disease without esophagitis History of fall Hyperlipidemia Inflammatory disease of breast snf (current) use 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 snf (current) use of oral hypoglycemic drugs Lumbar disc disease with radiculopathy 02/25/2011 Osteoporosis 03/17/2016 Personal history of (healed) traumatic fracture Presence of left artificial shoulder joint Right carotid bruit 10/16/2014 Type II or unspecified type diabetes mellitus without mention of complication, not stated as uncontrolled Unspecified hearing loss, bilateral Vitamin D deficiency 08/20/2011 PAST SURGICAL HISTORY Procedure Laterality Date APPENDECTOMY BX BREAST NEEDLE CORE W/O IMAGING GUIDANCE SPX cant recall which breast COLONOSCOPY FLX DX W/COLLJ SPEC WHEN PFRMD 07/25/2001 Colonoscopy CORRJ HLX VLGS BNCTY SESMDC DSTL METAR OSTEOT cant remember which foot ESOPHAGOGASTRODUODENOSCOPY TRANSORAL DIAGNOSTIC 2014 Erosive gastritis, duodenal bulb ulcer LAPS SURG CHOLECYSTECTOMY W/CHOLANGIOGRAPHY 08-02-14 MRCP 2015 subcentimeter cyst MYRINGOTOMY ASPIRAND/EUSTACHIAN TUBE NFLTJ ANES Myringotomy/tubes, right NEUROPLASTY AND/TRANSPOS MEDIAN NRV CARPAL TUNNE 10-20-13 RIGHT PAST SURGICAL HISTORY OF skin CA face PAST SURGICAL HISTORY OF left partial shoulder replacement PULMONARY FUNCTION TEST ALLERGIES Metformin, Morphine, Oxycodone, and Prevacid [Lansoprazole] MEDICATIONS Current Outpatient Medications Medication Sig amLODIPine (NORVASC) 5 mg tablet Take 1 tablet by mouth once daily. blood sugar diagnostic (BLOOD GLUCOSE TEST) test strip Test blood sugar(s) 1 times daily. Dx: E11.9. Insulin: No, Brand covered by insurance omeprazole (PRILOSEC) 20 mg capsule take 1 capsule by mouth every other day 1/2 HOUR BEFORE BREAKFAST glimepiride (AMARYL) 1 mg tablet Take 1 tablet by mouth daily with breakfast. lisinopril (ZESTRIL) 40 mg tablet Take 1 tablet by mouth once daily. pioglitazone (ACTOS) 15 mg tablet Take 1 tablet by mouth once daily. atorvastatin (LIPITOR) 80 mg tablet Take 1 tablet by mouth daily at bedtime. For cholesterol. polyethylene glycol 3350 (MIRALAX) 17 gram/dose powder Take one scoop daily with glass of juice/water/etc. (Patient taking differently: as needed. Take one scoop daily with glass of juice/water/etc.) MULTIVITS,TH W-CA,FE,OTH MIN (MULTIVITAMIN AND MINERAL ORAL) Take 1 tablet by mouth once daily. lancets(FREESTYLE LANCETS) use daily blood glucose control highANDlow(FREESTYLE CONTROL SOLN) use as directed No current facility-administered medications for this visit. FAMILY HISTORY Problem Relation Age of Onset Diabetes Mother Heart Mother COPD Father Colon Cancer Sister Diabetes Sister Alcohol abuse Sister COPD Sister COPD Sister Diabetes Brother Kidney Disease Brother Kidney Disease Brother Diabetes Daughter Social History Tobacco Use Smoking status: Never Smokeless tobacco: Never Vaping Use Vaping status: Never Used Substance Use Topics Alcohol use: No Drug use: No REVIEW OF SYSTEMS GENERAL: No weight loss, malaise or fevers/chills HEENT: Negative for frequent or significant headaches, No changes in hearing or vision. NECK: Negative for lumps, goiter, pain and significant neck swelling RESPIRATORY: Negative for cough, hemoptysis, wheezing, dyspnea or shortness of breath CARDIOVASCULAR: Negative for chest pain, orthopnea, or palpitations + Leg swelling GI: No nausea, vomiting, or diarrhea/constipation. No hematochezia/melena. No heartburn or reflux symptoms. : No history of dysuria, frequency or incontinence MUSCULOSKELETAL: Negative for joint pain or swelling. SKIN: Negative for lesions, rash, and itching ENDOCRINE: Negative (more content not included)... [facility] 08-28-2024 Instructions Treva Sandoval APRN.CNP - 08/28/2024 3:10 PM EST Increase Amlodipine 5 mg twice daily Continue with Lisinopril Monitor blood pressure at home, goal 130/80's or less Watch processed foods and salt in the diet Message or call the office in office 1-2 weeks with BP readings Follow as scheduled documented in this encounter [facility] 08-28-2024 History of Present illness Narrative This is a 89 year old female who presents today with: Patient presents with: Blood Pressure HISTORY OF PRESENT ILLNESS: Lucille Thurman is a 89 year old female. Patient presents with: Blood Pressure Here in the office for 1 month blood pressure check. Last office visit stopped hydrochlorothiazide to help kidney function. Added on amlodipine 5 mg daily and instructed to continue with lisinopril 40 mg daily. Checking blood pressure at home, 120-180's/60-80's. Refers that BP varies. Denies chest pain, palpitations, dizziness, or edema. PAST MEDICAL HISTORY: PAST MEDICAL HISTORY Diagnosis Date Acquired absence of other specified parts of digestive tract Age-related osteoporosis without current pathological fracture Arteriosclerosis of both carotid arteries 10/19/2014 Cataract extraction status, left eye Cataract extraction status, right eye DDD (degenerative disc disease), cervical 09/29/2018 Diverticulosis of colon (without mention of hemorrhage) Diverticulosis Do not resuscitate Essential hypertension, benign 07/30/2010 Gastro-esophageal reflux disease without esophagitis History of fall Hyperlipidemia Inflammatory disease of breast snf (current) use 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 hypoglycemic drugs Lumbar disc disease with radiculopathy 02/25/2011 Osteoporosis 03/17/2016 Personal history of (healed) traumatic fracture Presence of left artificial shoulder joint Right carotid bruit 10/16/2014 Type II or unspecified type diabetes mellitus without mention of complication, not stated as uncontrolled Unspecified hearing loss, bilateral Vitamin D deficiency 08/20/2011 PAST SURGICAL HISTORY Procedure Laterality Date APPENDECTOMY BX BREAST NEEDLE CORE W/O IMAGING GUIDANCE SPX cant recall which breast COLONOSCOPY FLX DX W/COLLJ SPEC WHEN PFRMD 07/25/2001 Colonoscopy CORRJ HLX VLGS BNCTY SESMDC DSTL METAR OSTEOT cant remember which foot ESOPHAGOGASTRODUODENOSCOPY TRANSORAL DIAGNOSTIC 2014 Erosive gastritis, duodenal bulb ulcer LAPS SURG CHOLECYSTECTOMY W/CHOLANGIOGRAPHY 08-02-14 MRCP 2014 subcentimeter cyst MYRINGOTOMY ASPIR&/EUSTACHIAN TUBE NFLTJ ANES Myringotomy/tubes, right NEUROPLASTY &/TRANSPOS MEDIAN NRV CARPAL TUNNE 10-20-13 RIGHT PAST SURGICAL HISTORY OF skin CA face PAST SURGICAL HISTORY OF left partial shoulder replacement PULMONARY FUNCTION TEST ALLERGIES Metformin, Morphine, Oxycodone, and Prevacid [Lansoprazole] MEDICATIONS Current Outpatient Medications Medication Sig amLODIPine (NORVASC) 5 mg tablet Take 1 tablet by mouth once daily. blood sugar diagnostic (BLOOD GLUCOSE TEST) test strip Test blood sugar(s) 1 times daily. Dx: E11.9. Insulin: No, Brand covered by insurance omeprazole (PRILOSEC) 20 mg capsule take 1 capsule by mouth every other day 1/2 HOUR BEFORE BREAKFAST glimepiride (AMARYL) 1 mg tablet Take 1 tablet by mouth daily with breakfast. lisinopril (ZESTRIL) 40 mg tablet Take 1 tablet by mouth once daily. pioglitazone (ACTOS) 15 mg tablet Take 1 tablet by mouth once daily. atorvastatin (LIPITOR) 80 mg tablet Take 1 tablet by mouth daily at bedtime. For cholesterol. polyethylene glycol 3350 (MIRALAX) 17 gram/dose powder Take one scoop daily with glass of juice/water/etc. (Patient taking differently: as needed. Take one scoop daily with glass of juice/water/etc.) MULTIVITS,TH W-CA,FE,OTH MIN (MULTIVITAMIN AND MINERAL ORAL) Take 1 tablet by mouth once daily. lancets(FREESTYLE LANCETS) use daily blood glucose control high&low(FREESTYLE CONTROL SOLN) use as directed No current facility-administered medications for this visit. FAMILY HISTORY Problem Relation Age of Onset Diabetes Mother Heart Mother COPD Father Colon Cancer Sister Diabetes Sister Alcohol abuse Sister COPD Sister COPD Sister Diabetes Brother Kidney Disease Brother Kidney Disease Brother Diabetes Daughter Social History Tobacco Use Smoking status: Never Smokeless tobacco: Never Vaping Use Vaping status: Never Used Substance Use Topics Alcohol use: No Drug use: No REVIEW OF SYSTEMS GENERAL: No weight loss, malaise or fevers/chills HEENT: Negative for frequent or significant headaches, No changes in hearing or vision. NECK: Negative for lumps, goiter, pain and significant neck swelling RESPIRATORY: Negative for cough, hemoptysis, wheezing, dyspnea or shortness of breath CARDIOVASCULAR: Negative for chest pain, leg swelling, orthopnea, or palpitations GI: No nausea, vomiting, or diarrhea/constipation. No hematochezia/melena. No heartburn or reflux symptoms. : No history of dysuria, frequency or incontinence MUSCULOSKELETAL: Negative for joint pain or swelling. SKIN: Negative for lesions, rash, and itching ENDOCRINE: Negative for cold or heat intolerance, polyuria, polydipsia and goiter NEURO: No history of headaches, syncope, paralysis, seizures or tremors MOOD: Negative for depression, anxiety, or suicidal ideation. EXAM: BP 168/62 Pulse 73 Ht 160 cm (5' 3) Wt 71.2 kg (157 lb) BMI 27.81 kg/m PHYSICAL EXAM: General Appearance: Well appearing, alert, in no acute distress, well-hydrated, well nourished. Skin: Skin color, texture, turgor normal, no suspicious rashes or lesions. Head: Normocephalic, no masses, lesions, tenderness or abnormalities. Eyes: Anicteric sclera. Extraocular movements are intact. Lungs: Lungs clear to auscultation. No wheezing, rhonchi, rales.. Heart: RRR without murmur, gallop, or rubs. No ectopy. Extremities: No deformities, edema, skin discoloration, clubbing or cyanosis. Good capillary refill. Peripheral Pulses: Normal, Capillary refill <2secs, strong peripheral pulses, Pulses palpable. Neurologic: Gait normal. Sensation grossly intact. ASSESSMENT/PLAN: 1. Essential hypertension, benign - ICD9: 401.1, ICD10: I10 (primary diagnosis) - Uncontrolled - Increase amlodipine 5 mg BID - Recommend home blood pressure monitoring - Encouraged sodium restriction, DASH or Mediterranean diet - Recommend regular aerobic exercise - Discussed need for and benefit of weight loss. BMI 27.81 kg/(m^2) - Instructed to call the office with home BP readings in 1-2 weeks. 2. Stage 3 chronic kidney disease, unspecified whether stage 3a or 3b CKD (HCC) - ICD9: 585.3, ICD10: N18.30 - Get repeat labs prior to next OV. Follow up as scheduled or sooner as needed. Discussed treatment plan and patient voices understanding. Patient's questions answered appropriately. Medications and potential side effects were discussed and patient voices understanding. Treva Sandoval APRN.BERNARDO This note was partially generated using [employer] voice recognition system. Note was reviewed for accuracy. There may be minor misspellings or grammar miscues with [employer] voice recognition. documented in this encounter [facility] 08-28-2024 Note HNO ID: [id number] Author: TREVA SANDOVAL APRN.CNP Service: ? Author Type: Nurse Practitioner Type: Progress Notes Filed: 08/28/2024 21:36 Note Text: This is a 89 year old female who presents today with: Patient presents with: Blood Pressure HISTORY OF PRESENT ILLNESS: Lucille Thurman is a 89 year old female. Patient presents with: Blood Pressure Here in the office for 1 month blood pressure check. Last office visit stopped hydrochlorothiazide to help kidney function. Added on amlodipine 5 mg daily and instructed to continue with lisinopril 40 mg daily. Checking blood pressure at home, 120-180's/60-80's. Refers that BP varies. Denies chest pain, palpitations, dizziness, or edema. PAST MEDICAL HISTORY: PAST MEDICAL HISTORY Diagnosis Date Acquired absence of other specified parts of digestive tract Age-related osteoporosis without current pathological fracture Arteriosclerosis of both carotid arteries 10/19/2014 Cataract extraction status, left eye Cataract extraction status, right eye DDD (degenerative disc disease), cervical 09/29/2018 Diverticulosis of colon (without mention of hemorrhage) Diverticulosis Do not resuscitate Essential hypertension, benign 07/30/2010 Gastro-esophageal reflux disease without esophagitis History of fall Hyperlipidemia Inflammatory disease of breast snf (current) use 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 snf (current) use of oral hypoglycemic drugs Lumbar disc disease with radiculopathy 02/25/2011 Osteoporosis 03/17/2016 Personal history of (healed) traumatic fracture Presence of left artificial shoulder joint Right carotid bruit 10/16/2014 Type II or unspecified type diabetes mellitus without mention of complication, not stated as uncontrolled Unspecified hearing loss, bilateral Vitamin D deficiency 08/20/2011 PAST SURGICAL HISTORY Procedure Laterality Date APPENDECTOMY BX BREAST NEEDLE CORE W/O IMAGING GUIDANCE SPX cant recall which breast COLONOSCOPY FLX DX W/COLLJ SPEC WHEN PFRMD 07/25/2001 Colonoscopy CORRJ HLX VLGS BNCTY SESMDC DSTL METAR OSTEOT cant remember which foot ESOPHAGOGASTRODUODENOSCOPY TRANSORAL DIAGNOSTIC 2014 Erosive gastritis, duodenal bulb ulcer LAPS SURG CHOLECYSTECTOMY W/CHOLANGIOGRAPHY 08-02-14 MRCP 2015 subcentimeter cyst MYRINGOTOMY ASPIRAND/EUSTACHIAN TUBE NFLTJ ANES Myringotomy/tubes, right NEUROPLASTY AND/TRANSPOS MEDIAN NRV CARPAL TUNNE 10-20-13 RIGHT PAST SURGICAL HISTORY OF skin CA face PAST SURGICAL HISTORY OF left partial shoulder replacement PULMONARY FUNCTION TEST ALLERGIES Metformin, Morphine, Oxycodone, and Prevacid [Lansoprazole] MEDICATIONS Current Outpatient Medications Medication Sig amLODIPine (NORVASC) 5 mg tablet Take 1 tablet by mouth once daily. blood sugar diagnostic (BLOOD GLUCOSE TEST) test strip Test blood sugar(s) 1 times daily. Dx: E11.9. Insulin: No, Brand covered by insurance omeprazole (PRILOSEC) 20 mg capsule take 1 capsule by mouth every other day 1/2 HOUR BEFORE BREAKFAST glimepiride (AMARYL) 1 mg tablet Take 1 tablet by mouth daily with breakfast. lisinopril (ZESTRIL) 40 mg tablet Take 1 tablet by mouth once daily. pioglitazone (ACTOS) 15 mg tablet Take 1 tablet by mouth once daily. atorvastatin (LIPITOR) 80 mg tablet Take 1 tablet by mouth daily at bedtime. For cholesterol. polyethylene glycol 3350 (MIRALAX) 17 gram/dose powder Take one scoop daily with glass of juice/water/etc. (Patient taking differently: as needed. Take one scoop daily with glass of juice/water/etc.) MULTIVITS,TH W-CA,FE,OTH MIN (MULTIVITAMIN AND MINERAL ORAL) Take 1 tablet by mouth once daily. lancets(FREESTYLE LANCETS) use daily blood glucose control highANDlow(FREESTYLE CONTROL SOLN) use as directed No current facility-administered medications for this visit. FAMILY HISTORY Problem Relation Age of Onset Diabetes Mother Heart Mother COPD Father Colon Cancer Sister Diabetes Sister Alcohol abuse Sister COPD Sister COPD Sister Diabetes Brother Kidney Disease Brother Kidney Disease Brother Diabetes Daughter Social History Tobacco Use Smoking status: Never Smokeless tobacco: Never Vaping Use Vaping status: Never Used Substance Use Topics Alcohol use: No Drug use: No REVIEW OF SYSTEMS GENERAL: No weight loss, malaise or fevers/chills HEENT: Negative for frequent or significant headaches, No changes in hearing or vision. NECK: Negative for lumps, goiter, pain and significant neck swelling RESPIRATORY: Negative for cough, hemoptysis, wheezing, dyspnea or shortness of breath CARDIOVASCULAR: Negative for chest pain, leg swelling, orthopnea, or palpitations GI: No nausea, vomiting, or diarrhea/constipation. No hematochezia/melena. No heartburn or reflux symptoms. : No history of dysuria, frequency or incontinence MUSCULOSKELETAL: Negative for joint pain or swelling. SKIN: Negative for lesions, rash, and itching (more content not included)... [facility] 07-28-2024 Note Addended by: TREVA SANDOVAL on: 07/28/2024 01:56 PM Modules accepted: Orders [facility] 07-28-2024 Miscellaneous Notes Addended by: TREVA SANDOVAL on: 07/28/2024 01:56 PM Modules accepted: Orders documented in this encounter [facility] 07-28-2024 Instructions Treva Sandoval APRN.BERNARDO - 07/28/2024 9:33 AM EST Get repeat fasting labs in 6 months prior to next visit Stop hydrochlorothiazide, this will help kidney function Add on Amlodipine 5 mg daily to help blood pressure Monitor blood pressure at home, goal 130/80 or less. Continue to take all medication as prescribed Watch salt and processed foods in the diet. Stay well hydrated. Be mindful with any anti-inflammatories. This will help kidney function Due for eye exam, A1C came down 6.3! [facility] in [place], Dr. Vaughn at the [facility] [place] and Dr. Machado with the [facility] Follow up in 1 month for blood pressure check and 6 months for normal follow up. documented in this encounter [facility] 07-28-2024 History of Present illness Narrative This is a 89 year old female who presents today with: Patient presents with: 6 Month Exam HISTORY OF PRESENT ILLNESS: Lucille Thurman is a 89 year old female. Patient presents with: 6 Month Exam 6 month follow up HTN: Taking lisinopril 40 mg daily and hydrochlorothiazide 12.5 mg daily. Not currently checking blood pressure at home. Denies chest pain, palpitations, dizziness, or edema. GERD: Taking omeprazole 20 mg every other day. Symptoms well controlled. Lipids: Taking Lipitor 80 mg daily. Working on diet. Tolerating medication well. DM: Taking Actos 50 mg daily and Amaryl 2 mg daily. Checking sugars at home, 95-120 fasting. Watching diet most of the time. Denies any hypoglycemic episodes, increased thirst/urination, or foot lesions. A1C went from 6.8 to 6.3. Decreased kidney function noted at last office visit, mild improvement on recent labs. Eye exam soon. Wearing glasses. PAST MEDICAL HISTORY: PAST MEDICAL HISTORY Diagnosis Date Acquired absence of other specified parts of digestive tract Age-related osteoporosis without current pathological fracture Arteriosclerosis of both carotid arteries 10/19/2014 Cataract extraction status, left eye Cataract extraction status, right eye DDD (degenerative disc disease), cervical 09/29/2018 Diverticulosis of colon (without mention of hemorrhage) Diverticulosis Do not resuscitate Essential hypertension, benign 07/30/2010 Gastro-esophageal reflux disease without esophagitis History of fall Hyperlipidemia Inflammatory disease of breast 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 hypoglycemic drugs Lumbar disc disease with radiculopathy 02/25/2011 Osteoporosis 03/17/2016 Personal history of (healed) traumatic fracture Presence of left artificial shoulder joint Right carotid bruit 10/16/2014 Type II or unspecified type diabetes mellitus without mention of complication, not stated as uncontrolled Unspecified hearing loss, bilateral Vitamin D deficiency 08/20/2011 PAST SURGICAL HISTORY Procedure Laterality Date APPENDECTOMY BX BREAST NEEDLE CORE W/O IMAGING GUIDANCE SPX cant recall which breast COLONOSCOPY FLX DX W/COLLJ SPEC WHEN PFRMD 07/25/2001 Colonoscopy CORRJ HLX VLGS BNCTY SESMDC DSTL METAR OSTEOT cant remember which foot ESOPHAGOGASTRODUODENOSCOPY TRANSORAL DIAGNOSTIC 2014 Erosive gastritis, duodenal bulb ulcer LAPS SURG CHOLECYSTECTOMY W/CHOLANGIOGRAPHY 08-02-14 MRCP 2014 subcentimeter cyst MYRINGOTOMY ASPIR&/EUSTACHIAN TUBE NFLTJ ANES Myringotomy/tubes, right NEUROPLASTY &/TRANSPOS MEDIAN NRV CARPAL TUNNE 10-20-13 RIGHT PAST SURGICAL HISTORY OF skin CA face PAST SURGICAL HISTORY OF left partial shoulder replacement PULMONARY FUNCTION TEST ALLERGIES Metformin, Morphine, Oxycodone, and Prevacid [Lansoprazole] MEDICATIONS Current Outpatient Medications Medication Sig blood sugar diagnostic (BLOOD GLUCOSE TEST) test strip Test blood sugar(s) 1 times daily. Dx: E11.9. Insulin: No, Brand covered by insurance omeprazole (PRILOSEC) 20 mg capsule take 1 capsule by mouth every other day 1/2 HOUR BEFORE BREAKFAST glimepiride (AMARYL) 1 mg tablet Take 1 tablet by mouth daily with breakfast. lisinopril (ZESTRIL) 40 mg tablet Take 1 tablet by mouth once daily. pioglitazone (ACTOS) 15 mg tablet Take 1 tablet by mouth once daily. hydroCHLOROthiazide 12.5 mg capsule Take 1 capsule by mouth once daily. atorvastatin (LIPITOR) 80 mg tablet Take 1 tablet by mouth daily at bedtime. For cholesterol. tiZANidine (ZANAFLEX) 4 mg tablet Take 1 tablet by mouth every 8 hours as needed (muscle spasms). polyethylene glycol 3350 (MIRALAX) 17 gram/dose powder Take one scoop daily with glass of juice/water/etc. (Patient taking differently: as needed. Take one scoop daily with glass of juice/water/etc.) MULTIVITS,TH W-CA,FE,OTH MIN (MULTIVITAMIN AND MINERAL ORAL) Take 1 tablet by mouth once daily. lancets(FREESTYLE LANCETS) use daily blood glucose control high&low(FREESTYLE CONTROL SOLN) use as directed No current facility-administered medications for this visit. FAMILY HISTORY Problem Relation Age of Onset Diabetes Mother Heart Mother COPD Father Colon Cancer Sister Diabetes Sister Alcohol abuse Sister COPD Sister COPD Sister Diabetes Brother Kidney Disease Brother Kidney Disease Brother Diabetes Daughter Social History Tobacco Use Smoking status: Never Smokeless tobacco: Never Vaping Use Vaping status: Never Used Substance Use Topics Alcohol use: No Drug use: No REVIEW OF SYSTEMS GENERAL: No weight loss, malaise or fevers/chills HEENT: Negative for frequent or significant headaches, No changes in hearing or vision. NECK: Negative for lumps, goiter, pain and significant neck swelling RESPIRATORY: Negative for cough, hemoptysis, wheezing, dyspnea or shortness of breath CARDIOVASCULAR: Negative for chest pain, leg swelling, orthopnea, or palpitations GI: No nausea, vomiting, or diarrhea/constipation. No hematochezia/melena. No heartburn or reflux symptoms. : No history of dysuria, frequency or incontinence MUSCULOSKELETAL: Negative for joint pain or swelling. SKIN: Negative for lesions, rash, and itching ENDOCRINE: Negative for cold or heat intolerance, polyuria, polydipsia and goiter NEURO: No history of headaches, syncope, paralysis, seizures or tremors MOOD: Negative for depression, anxiety, or suicidal ideation. EXAM: BP 150/72 Pulse 78 Resp 16 Wt 71.6 kg (157 lb 13.6 oz) SpO2 98% BMI 27.96 kg/m BP 158/70 Pulse 78 Resp 16 Wt 71.6 kg (157 lb 13.6 oz) SpO2 98% BMI 27.96 kg/m PHYSICAL EXAM: General Appearance: Well appearing, alert, in no acute distress, well-hydrated, well nourished. Skin: Skin color, texture, turgor normal, no suspicious rashes or lesions. Head: Normocephalic, no masses, lesions, tenderness or abnormalities. Eyes: Anicteric sclera. Extraocular movements are intact. . Lungs: Lungs clear to auscultation. No wheezing, rhonchi, rales. Heart: RRR without murmur, gallop, or rubs. No ectopy. Extremities: No deformities, edema, skin discoloration, clubbing or cyanosis. Good capillary refill. Peripheral Pulses: Normal, Capillary refill <2secs, strong peripheral pulses, Pulses palpable. Neurologic: Gait normal. Sensation grossly intact. Latest Ref Rng 07/27/2024 Protein, Total 6.3 - 8.0 g/dL 6.9 Albumin 3.9 - 4.9 g/dL 4.0 Calcium 8.5 - 10.2 mg/dL 9.3 Bilirubin, Total 0.2 - 1.3 mg/dL 0.5 Alkaline Phosphatase 34 - 123 U/L 72 AST 13 - 35 U/L 27 ALT 7 - 38 U/L 16 Glucose 74 - 99 mg/dL 127 (H) BUN 7 - 21 mg/dL 25 (H) Creatinine 0.58 - 0.96 mg/dL 1.08 (H) Sodium 136 - 144 mmol/L 141 Potassium 3.7 - 5.1 mmol/L 4.4 Chloride 98 - 107 mmol/L 106 CO2 22 - 30 mmol/L 22 Anion Gap 8 - 15 mmol/L 13 eGFR >=60 mL/min/1.73m 49 (L) Cholesterol, Total <200 mg/dL 142 Triglyceride <150 mg/dL 100 HDL Cholesterol >39 mg/dL 42 Non HDL Cholesterol <130 mg/dL 100 Fasting Time hrs 10 VLDL Cholesterol <30 mg/dL 20 TC:HDL Ratio <5.10 3.38 LDL Cholesterol <100 mg/dL 80 LDL:HDL Ratio <2.54 1.90 Hemoglobin A1C 4.3 - 5.6 % 6.3 (H) Estimated Average Glucose mg/dL 134 Legend: (H) High (L) Low ASSESSMENT/PLAN: 1. 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 3 chronic kidney disease, without long-term current use of insulin (HCC) - ICD9: 250.40, 585.3, ICD10: E11.22, N18.30 (primary diagnosis) - Improving control - Continue current medications - Counseled on healthy diet and regular exercise - Discussed need for and benefit of weight loss. BMI 27.96 kg/(m^2) - eGFR: 49 Improving - Counseled on avoiding NSAIDs, adequate hydration - Counseled on low sodium diet - Get repeat labs in 6 months. - HEMOGLOBIN A1C 2. Essential hypertension, benign - ICD9: 401.1, ICD10: I10 - Uncontrolled - Stop hydrochlorothiazide to improve kidney function. - Add on amlodipine 5 mg daily. Continue with lisinopril 40 mg daily. - Recommend home blood pressure monitoring, to bring results to next visit - Encouraged sodium restriction, DASH or Mediterranean diet - Recommend regular aerobic exercise - Follow-up in 1 month for blood pressure check. 3. Stage 3 chronic kidney disease, unspecified whether stage 3a or 3b CKD (HCC) - ICD9: 585.3, ICD10: N18.30 - eGFR: 49 Improving - Counseled on avoiding NSAIDs, adequate hydration - Counseled on low sodium diet - Medications reviewed and renally adjusted - COMPREHENSIVE METABOLIC PANEL 4. Hyperlipidemia LDL goal <100 - ICD9: 272.4, ICD10: E78.5 - Controlled - Continue current medications - Counseled on healthy diet and regular exercise - COMPREHENSIVE METABOLIC PANEL - LIPID PANEL BASIC 5. Gastroesophageal reflux disease without esophagitis - ICD9: 530.81, ICD10: K21.9 - Stable, continue to take current medication. Follow-up in 1 month or sooner as needed. Discussed treatment plan and patient voices understanding. Patient's questions answered appropriately. Medications and potential side effects were discussed and patient voices understanding. Treva Sandoval APRN.CNP This note was partially generated using [employer] voice recognition system. Note was reviewed for accuracy. There may be minor misspellings or grammar miscues with [employer] voice recognition. documented in this encounter [facility] 07-28-2024 Note HNO ID: [id number] Author: TREVA SANDOVAL APRN.CNP Service: ? Author Type: Nurse Practitioner Type: Progress Notes Filed: 07/28/2024 12:28 Note Text: This is a 89 year old female who presents today with: Patient presents with: 6 Month Exam HISTORY OF PRESENT ILLNESS: Lucille Thurman is a 89 year old female. Patient presents with: 6 Month Exam 6 month follow up HTN: Taking lisinopril 40 mg daily and hydrochlorothiazide 12.5 mg daily. Not currently checking blood pressure at home. Denies chest pain, palpitations, dizziness, or edema. GERD: Taking omeprazole 20 mg every other day. Symptoms well controlled. Lipids: Taking Lipitor 80 mg daily. Working on diet. Tolerating medication well. DM: Taking Actos 50 mg daily and Amaryl 2 mg daily. Checking sugars at home, 95-120 fasting. Watching diet most of the time. Denies any hypoglycemic episodes, increased thirst/urination, or foot lesions. A1C went from 6.8 to 6.3. Decreased kidney function noted at last office visit, mild improvement on recent labs. Eye exam soon. Wearing glasses. PAST MEDICAL HISTORY: PAST MEDICAL HISTORY Diagnosis Date Acquired absence of other specified parts of digestive tract Age-related osteoporosis without current pathological fracture Arteriosclerosis of both carotid arteries 10/19/2014 Cataract extraction status, left eye Cataract extraction status, right eye DDD (degenerative disc disease), cervical 09/29/2018 Diverticulosis of colon (without mention of hemorrhage) Diverticulosis Do not resuscitate Essential hypertension, benign 07/30/2010 Gastro-esophageal reflux disease without esophagitis History of fall Hyperlipidemia Inflammatory disease of breast 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 hypoglycemic drugs Lumbar disc disease with radiculopathy 02/25/2011 Osteoporosis 03/17/2016 Personal history of (healed) traumatic fracture Presence of left artificial shoulder joint Right carotid bruit 10/16/2014 Type II or unspecified type diabetes mellitus without mention of complication, not stated as uncontrolled Unspecified hearing loss, bilateral Vitamin D deficiency 08/20/2011 PAST SURGICAL HISTORY Procedure Laterality Date APPENDECTOMY BX BREAST NEEDLE CORE W/O IMAGING GUIDANCE SPX cant recall which breast COLONOSCOPY FLX DX W/COLLJ SPEC WHEN PFRMD 07/25/2001 Colonoscopy CORRJ HLX VLGS BNCTY SESMDC DSTL METAR OSTEOT cant remember which foot ESOPHAGOGASTRODUODENOSCOPY TRANSORAL DIAGNOSTIC 2015 Erosive gastritis, duodenal bulb ulcer LAPS SURG CHOLECYSTECTOMY W/CHOLANGIOGRAPHY 08-02-14 MRCP 2015 subcentimeter cyst MYRINGOTOMY ASPIRAND/EUSTACHIAN TUBE NFLTJ ANES Myringotomy/tubes, right NEUROPLASTY AND/TRANSPOS MEDIAN NRV CARPAL TUNNE 10-20-13 RIGHT PAST SURGICAL HISTORY OF skin CA face PAST SURGICAL HISTORY OF left partial shoulder replacement PULMONARY FUNCTION TEST ALLERGIES Metformin, Morphine, Oxycodone, and Prevacid [Lansoprazole] MEDICATIONS Current Outpatient Medications Medication Sig blood sugar diagnostic (BLOOD GLUCOSE TEST) test strip Test blood sugar(s) 1 times daily. Dx: E11.9. Insulin: No, Brand covered by insurance omeprazole (PRILOSEC) 20 mg capsule take 1 capsule by mouth every other day 1/2 HOUR BEFORE BREAKFAST glimepiride (AMARYL) 1 mg tablet Take 1 tablet by mouth daily with breakfast. lisinopril (ZESTRIL) 40 mg tablet Take 1 tablet by mouth once daily. pioglitazone (ACTOS) 15 mg tablet Take 1 tablet by mouth once daily. hydroCHLOROthiazide 12.5 mg capsule Take 1 capsule by mouth once daily. atorvastatin (LIPITOR) 80 mg tablet Take 1 tablet by mouth daily at bedtime. For cholesterol. tiZANidine (ZANAFLEX) 4 mg tablet Take 1 tablet by mouth every 8 hours as needed (muscle spasms). polyethylene glycol 3350 (MIRALAX) 17 gram/dose powder Take one scoop daily with glass of juice/water/etc. (Patient taking differently: as needed. Take one scoop daily with glass of juice/water/etc.) MULTIVITS,TH W-CA,FE,OTH MIN (MULTIVITAMIN AND MINERAL ORAL) Take 1 tablet by mouth once daily. lancets(FREESTYLE LANCETS) use daily blood glucose control highANDlow(FREESTYLE CONTROL SOLN) use as directed No current facility-administered medications for this visit. FAMILY HISTORY Problem Relation Age of Onset Diabetes Mother Heart Mother COPD Father Colon Cancer Sister Diabetes Sister Alcohol abuse Sister COPD Sister COPD Sister Diabetes Brother Kidney Disease Brother Kidney Disease Brother Diabetes Daughter Social History Tobacco Use Smoking status: Never Smokeless tobacco: Never Vaping Use Vaping status: Never Used Substance Use Topics Alcohol use: No Drug use: No REVIEW OF SYSTEMS GENERAL: No weight loss, malaise or fevers/chills HEENT: Negative for frequent or significant headaches, No changes in hearing or vision. NECK: Negative for lumps, goiter, pain and si (more content not included)... [facility] 03-17-2024 Telephone encounter Note The following approved medication requests have been transmitted electronically. Requested Prescriptions Pending Prescriptions Disp Refills blood sugar diagnostic (BLOOD GLUCOSE TEST) test strip 100 Strip 3 Sig: Test blood sugar(s) 1 times daily. Dx: E11.9. Insulin: No, Brand covered by insurance Imtiaz Hodge APRN.PUBLIC RELATIONS OFFICER [facility] 03-17-2024 Miscellaneous Notes The following approved medication requests have been transmitted electronically. Requested Prescriptions Pending Prescriptions Disp Refills blood sugar diagnostic (BLOOD GLUCOSE TEST) test strip 100 Strip 3 Sig: Test blood sugar(s) 1 times daily. Dx: E11.9. Insulin: No, Brand covered by insurance Imtiaz Hodge APRN.PUBLIC RELATIONS OFFICER The patient has been identified by name and date of : Yes Caregiver verified no other encounters exist for this prescription request: Yes Caregiver confirmed with patient/requestor that no other refills are due, in the near future, with this provider at this time: Yes The last office visit in the department: 01/12/2024 Does the patient have a future office visit with this provider/department: Yes 07/28/2024 Requested Prescriptions Pending Prescriptions Disp Refills blood sugar diagnostic (BLOOD GLUCOSE TEST) test strip 100 Strip 3 Sig: Test blood sugar(s) 1 times daily. Dx: E11.9. Insulin: No, Brand covered by insurance Shiela Cornelius RN March 17, 2024 9:49 AM documented in this encounter [facility] 03-17-2024 Telephone encounter Note The patient has been identified by name and date of : Yes Caregiver verified no other encounters exist for this prescription request: Yes Caregiver confirmed with patient/requestor that no other refills are due, in the near future, with this provider at this time: Yes The last office visit in the department: 01/12/2024 Does the patient have a future office visit with this provider/department: Yes 07/28/2024 Requested Prescriptions Pending Prescriptions Disp Refills blood sugar diagnostic (BLOOD GLUCOSE TEST) test strip 100 Strip 3 Sig: Test blood sugar(s) 1 times daily. Dx: E11.9. Insulin: No, Brand covered by insurance Shiela Cornelius RN March 17, 2024 9:49 AM [facility] 02-02-2024 Telephone encounter Note The following approved medication requests have been transmitted electronically. Requested Prescriptions Pending Prescriptions Disp Refills omeprazole (PRILOSEC) 20 mg capsule 45 capsule 3 Sig: take 1 capsule by mouth every other day 1/2 HOUR BEFORE BREAKFAST Imtiaz Hodge APRN.BERNARDO [facility] 02-02-2024 Miscellaneous Notes The following approved medication requests have been transmitted electronically. Requested Prescriptions Pending Prescriptions Disp Refills omeprazole (PRILOSEC) 20 mg capsule 45 capsule 3 Sig: take 1 capsule by mouth every other day 1/2 HOUR BEFORE BREAKFAST Imtiaz Hodge APRN.PUBLIC RELATIONS OFFICER Only taking it once every other day. Asked that Rx reflect this. Patient has been identified by name and date of : Yes Patient phones for refill(s): Requested Prescriptions Pending Prescriptions Disp Refills omeprazole (PRILOSEC) 20 mg capsule 90 capsule 3 Sig: take 1 capsule by mouth once daily 1/2 HOUR BEFORE BREAKFAST Date of last office visit in primary care: 01/12/2024 Date of next office visit in primary care: 07/28/2024 Aleshia Handley in [place]. Please advise. Thank you. Criss Bacon. documented in this encounter [facility] 02-02-2024 Telephone encounter Note Only taking it once every other day. Asked that Rx reflect this. Patient has been identified by name and date of : Yes Patient phones for refill(s): Requested Prescriptions Pending Prescriptions Disp Refills omeprazole (PRILOSEC) 20 mg capsule 90 capsule 3 Sig: take 1 capsule by mouth once daily 1/2 HOUR BEFORE BREAKFAST Date of last office visit in primary care: 01/12/2024 Date of next office visit in primary care: 07/28/2024 Aleshia Handley in [place]. Please advise. Thank you. Criss Bacon. [facility] 01-12-2024 Instructions Treva Sandoval APRN.BERNARDO - 01/12/2024 9:34 AM EDT Get repeat fasting labs in 6 months prior to next visit. Watch higher carbs in the diet, increase protein, veggies, and stay active. Increase water intake. Continue to take all medication as prescribed. Follow up in 6 months or sooner as needed. documented in this encounter [facility] 01-12-2024 History of Present illness Narrative This is a 88 year old female who presents today with: Patient presents with: 6 Month Exam HISTORY OF PRESENT ILLNESS: Lucille Thurman is a 88 year old female. Patient presents with: 6 Month Exam 6 month follow up HTN: Taking lisinopril 40 mg daily and hydrochlorothiazide 12.5 mg daily. Checking blood pressure at home randomly. Denies chest pain, palpitations, dizziness, or edema. GERD: Taking omeprazole 20 mg every other day. Symptoms well controlled. Lipids: Taking Lipitor 80 mg daily. Working on diet. Tolerating medication well. DM: Taking Actos 50 mg daily and Amaryl 2 mg daily. Checking sugars at home, 95-120 fasting. Watching diet most of the time. Denies any hypoglycemic episodes, increased thirst/urination, or foot lesions. A1C went from 6.7 to 6.8. Right Hand Arthritis: Much improved, stopped the Meloxicam. PAST MEDICAL HISTORY: PAST MEDICAL HISTORY Diagnosis Date Acquired absence of other specified parts of digestive tract Age-related osteoporosis without current pathological fracture Arteriosclerosis of both carotid arteries 10/19/2014 Cataract extraction status, left eye Cataract extraction status, right eye DDD (degenerative disc disease), cervical 09/29/2018 Diverticulosis of colon (without mention of hemorrhage) Diverticulosis Do not resuscitate Essential hypertension, benign 07/30/2010 Gastro-esophageal reflux disease without esophagitis History of fall Hyperlipidemia Inflammatory disease of breast snf (current) use 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 snf (current) use of oral hypoglycemic drugs Lumbar disc disease with radiculopathy 02/25/2011 Osteoporosis 03/17/2016 Personal history of (healed) traumatic fracture Presence of left artificial shoulder joint Right carotid bruit 10/16/2014 Type II or unspecified type diabetes mellitus without mention of complication, not stated as uncontrolled Unspecified hearing loss, bilateral Vitamin D deficiency 08/20/2011 PAST SURGICAL HISTORY Procedure Laterality Date APPENDECTOMY BX BREAST NEEDLE CORE W/O IMAGING GUIDANCE SPX cant recall which breast COLONOSCOPY FLX DX W/COLLJ SPEC WHEN PFRMD 07/25/2001 Colonoscopy CORRJ HALLUX VALGUS W/SESMDC W/DIST METAR OSTEOT cant remember which foot ESOPHAGOGASTRODUODENOSCOPY TRANSORAL DIAGNOSTIC 2014 Erosive gastritis, duodenal bulb ulcer LAPS SURG CHOLECYSTECTOMY W/CHOLANGIOGRAPHY 08-02-14 MRCP 2014 subcentimeter cyst MYRINGOTOMY ASPIR&/EUSTACHIAN TUBE NFLTJ ANES Myringotomy/tubes, right NEUROPLASTY &/TRANSPOS MEDIAN NRV CARPAL TUNNE 10-20-13 RIGHT PAST SURGICAL HISTORY OF skin CA face PAST SURGICAL HISTORY OF left partial shoulder replacement PULMONARY FUNCTION TEST ALLERGIES Metformin, Morphine, Oxycodone, and Prevacid [Lansoprazole] MEDICATIONS Current Outpatient Medications Medication Sig glimepiride (AMARYL) 1 mg tablet Take 1 tablet by mouth daily with breakfast. lisinopril (ZESTRIL) 40 mg tablet Take 1 tablet by mouth once daily. pioglitazone (ACTOS) 15 mg tablet Take 1 tablet by mouth once daily. hydroCHLOROthiazide 12.5 mg capsule Take 1 capsule by mouth once daily. atorvastatin (LIPITOR) 80 mg tablet Take 1 tablet by mouth daily at bedtime. For cholesterol. omeprazole (PRILOSEC) 20 mg capsule take 1 capsule by mouth once daily 1/2 HOUR BEFORE BREAKFAST blood sugar diagnostic (BLOOD GLUCOSE TEST) test strip Test blood sugar(s) 1 times daily. Dx: E11.9. Insulin: No, Brand covered by insurance tiZANidine (ZANAFLEX) 4 mg tablet Take 1 tablet by mouth every 8 hours as needed (muscle spasms). polyethylene glycol 3350 (MIRALAX) 17 gram/dose powder Take one scoop daily with glass of juice/water/etc. (Patient taking differently: as needed. Take one scoop daily with glass of juice/water/etc.) MULTIVITS, W-CA,FE,OTH MIN (MULTIVITAMIN AND MINERAL ORAL) Take 1 tablet by mouth once daily. lancets(FREESTYLE LANCETS) use daily blood glucose control high&low(FREESTYLE CONTROL SOLN) use as directed No current facility-administered medications for this visit. FAMILY HISTORY Problem Relation Age of Onset Diabetes Mother Heart Mother COPD Father Colon Cancer Sister Diabetes Sister Alcohol abuse Sister COPD Sister COPD Sister Diabetes Brother Kidney Disease Brother Kidney Disease Brother Diabetes Daughter Social History Tobacco Use Smoking status: Never Smokeless tobacco: Never Vaping Use Vaping Use: Never used Substance Use Topics Alcohol use: No Drug use: No REVIEW OF SYSTEMS GENERAL: No weight loss, malaise or fevers/chills HEENT: Negative for frequent or significant headaches, No changes in hearing or vision. NECK: Negative for lumps, goiter, pain and significant neck swelling RESPIRATORY: Negative for cough, hemoptysis, wheezing, dyspnea or shortness of breath CARDIOVASCULAR: Negative for chest pain, leg swelling, orthopnea, or palpitations GI: No nausea, vomiting, or diarrhea/constipation. No hematochezia/melena. No heartburn or reflux symptoms. : No history of dysuria, frequency or incontinence MUSCULOSKELETAL: Negative for joint pain or swelling. SKIN: Negative for lesions, rash, and itching ENDOCRINE: Negative for cold or heat intolerance, polyuria, polydipsia and goiter NEURO: No history of headaches, syncope, paralysis, seizures or tremors MOOD: Negative for depression, anxiety, or suicidal ideation. EXAM: BP 130/70 Pulse 77 Resp 16 Wt 71.7 kg (158 lb) SpO2 98% BMI 27.99 kg/m PHYSICAL EXAM: General Appearance: Well appearing, alert, in no acute distress, well-hydrated, well nourished. Skin: Skin color, texture, turgor normal, no suspicious rashes or lesions. Head: Normocephalic, no masses, lesions, tenderness or abnormalities. Eyes: Anicteric sclera. Extraocular movements are intact. Lungs: Lungs clear to auscultation. No wheezing, rhonchi, rales. Heart: RRR without murmur, gallop, or rubs. No ectopy. Extremities: No deformities, edema, skin discoloration, clubbing or cyanosis. Good capillary refill. Peripheral Pulses: Normal, Capillary refill <2secs, strong peripheral pulses, Pulses palpable. Neurologic: Gait normal. Sensation grossly intact. Latest Ref Rng 01/06/2024 Protein, Total 6.3 - 8.0 g/dL 6.9 Albumin 3.9 - 4.9 g/dL 3.9 Calcium 8.5 - 10.2 mg/dL 9.7 Bilirubin, Total 0.2 - 1.3 mg/dL 0.6 Alkaline Phosphatase 34 - 123 U/L 75 AST 13 - 35 U/L 27 ALT 7 - 38 U/L 19 Glucose 74 - 99 mg/dL 121 (H) BUN 7 - 21 mg/dL 32 (H) Creatinine 0.58 - 0.96 mg/dL 1.23 (H) Sodium 136 - 144 mmol/L 139 Potassium 3.7 - 5.1 mmol/L 4.9 Chloride 97 - 105 mmol/L 105 CO2 22 - 30 mmol/L 26 Anion Gap 9 - 18 mmol/L 8 (L) eGFR >=60 mL/min/1.73m 42 (L) Cholesterol, Total <200 mg/dL 152 Triglyceride <150 mg/dL 138 HDL Cholesterol >39 mg/dL 41 Non HDL Cholesterol <130 mg/dL 111 Fasting Time hrs 13 VLDL Cholesterol <30 mg/dL 28 TC:HDL Ratio <5.10 3.71 LDL Cholesterol <100 mg/dL 83 LDL:HDL Ratio <2.54 2.02 Hemoglobin A1C 4.3 - 5.6 % 6.8 (H) Estimated Average Glucose mg/dL 148 Legend: (H) High (L) Low ASSESSMENT/PLAN: 1. 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 3 chronic kidney disease, without long-term current use of insulin (HCC) - ICD9: 250.40, 585.3, ICD10: E11.22, N18.30 (primary diagnosis) - Denied wanting to make any medication adjustments. - Worsening control - Continue current medications - Counseled on healthy diet and regular exercise - eGFR: 42 Worsening - Counseled on avoiding NSAIDs, adequate hydration - Counseled on low sodium diet - Repeat labs and urine testing in 6 months prior to next OV. - HEMOGLOBIN A1C - ALBUMIN/CREATININE RATIO, URINE 2. Essential hypertension, benign - ICD9: 401.1, ICD10: I10 - Controlled - Continue current medications - Recommend home blood pressure monitoring, to bring results to next visit - Encouraged sodium restriction, DASH or Mediterranean diet - Recommend regular aerobic exercise 3. Gastroesophageal reflux disease without esophagitis - ICD9: 530.81, ICD10: K21.9 - Stable, continue with current medication. 4. Hyperlipidemia LDL goal <100 - ICD9: 272.4, ICD10: E78.5 - Controlled - Continue current medications - Counseled on healthy diet and regular exercise - COMPREHENSIVE METABOLIC PANEL - LIPID PANEL BASIC 5. Bilateral hand pain - ICD9: 729.5, ICD10: M79.641, M79.642 - Stable. Follow up in 6 months or sooner as needed. Discussed treatment plan and patient voices understanding. Patient's questions answered appropriately. Medications and potential side effects were discussed and patient voices understanding. Treva Sandoval APRN.CNP This note was partially generated using [employer] voice recognition system. Note was reviewed for accuracy. There may be minor misspellings or grammar miscues with [employer] voice recognition. documented in this encounter [facility] 04-15-2023 Miscellaneous Notes The following approved medication requests have been transmitted electronically. Requested Prescriptions Pending Prescriptions Disp Refills glimepiride (AMARYL) 1 mg tablet 90 tablet 1 Sig: Take 1 tablet by mouth daily with breakfast. Imtiaz Hodge APRN.CNP Patient has been identified by name and date of : Yes, Provider [facility] Date 04/15/23 Time 11:07 AM Patient phones for refill(s): Requested Prescriptions Pending Prescriptions Disp Refills glimepiride (AMARYL) 1 mg tablet 90 tablet 1 Sig: Take 1 tablet by mouth daily with breakfast. Date of last office visit with pcp: 11/26/22 Next appt: 06/10/23 Last 2 Encounter Wt Readings: Date: Wt: 11/26/2022 73.5 kg (162 lb) 11/17/2022 72.6 kg (160 lb) Previous labs/tests for medication: Diabetes: Hemoglobin A1C (%) Date Value 05/22/2022 6.3 11/24/2021 6.8 05/15/2021 7.0 11/13/2020 6.4 Blood Pressure: BUN (mg/dL) Date Value 11/19/2022 29 05/15/2021 22 Sodium (mmol/L) Date Value 11/19/2022 139 05/15/2021 140 Last 1 Encounter BP Readings: Date: BP: 11/26/2022 140/80 Liver Function: ALT (U/L) Date Value 11/19/2022 22 05/15/2021 16 AST (U/L) Date Value 11/19/2022 31 05/15/2021 30 Please advise. Thank you. Alice Pedersen RN documented in this encounter [facility] 02-17-2023 Miscellaneous Notes The following approved medication requests have been transmitted electronically. Requested Prescriptions Signed Prescriptions Disp Refills meloxicam (MOBIC) 15 mg tablet 30 tablet 5 Sig: Take 1 tablet by mouth once daily. With food. Authorizing Provider: TREVA SANDOVAL APRN.CNP Last OV: 11/26/22 Next OV; 06/10/23 Last Rx: 10/08/22 #30 w/1. Chelle Torre Ma Patient called to refill meloxicam; not on current med list. Said she doesn't take it daily, but likes to have it when she needs it. Uses [facility] in [place]. documented in this encounter [facility] 01-25-2023 Miscellaneous Notes Call placed to patient and notified prescription sent to pharmacy. Patient verbalizes understanding. Shiela Cornelius RN The following approved medication requests have been transmitted electronically. Requested Prescriptions Pending Prescriptions Disp Refills omeprazole (PRILOSEC) 20 mg capsule 90 capsule 3 Sig: take 1 capsule by mouth once daily 1/2 HOUR BEFORE BREAKFAST Treva Sandoval APRN.PUBLIC RELATIONS OFFICER Patient has been identified by name and date of : Yes, Shiela Cornelius RN Date 01/25/2023 Time 9:48 am Patient phones for refill(s): Requested Prescriptions Pending Prescriptions Disp Refills omeprazole (PRILOSEC) 20 mg capsule 90 capsule 3 Sig: take 1 capsule by mouth once daily 1/2 HOUR BEFORE BREAKFAST Date of last office visit with pcp: 11/26/2022 Future appt: 06/10/2023 Last 2 Encounter Wt Readings: Date: Wt: 11/26/2022 73.5 kg (162 lb) 11/17/2022 72.6 kg (160 lb) Previous labs/tests for medication: Blood Pressure: BUN (mg/dL) Date Value 11/19/2022 29 05/15/2021 22 Sodium (mmol/L) Date Value 11/19/2022 139 05/15/2021 140 Last 1 Encounter BP Readings: Date: BP: 11/26/2022 140/80 Liver Function: ALT (U/L) Date Value 11/19/2022 22 05/15/2021 16 AST (U/L) Date Value 11/19/2022 31 05/15/2021 30 Please advise. Thank you. Shiela Cornelius RN documented in this encounter [facility] 12-18-2022 Miscellaneous Notes The following approved medication requests have been transmitted electronically. Requested Prescriptions Pending Prescriptions Disp Refills blood sugar diagnostic (BLOOD GLUCOSE TEST) test strip 100 Strip 3 Sig: Test blood sugar(s) 1 times daily. Dx: E11.9. Insulin: No, Brand covered by insurance Imtiaz Hodge APRN.CNP Patient has been identified by name and date of : Yes Requested Prescriptions Pending Prescriptions Disp Refills blood sugar diagnostic (BLOOD GLUCOSE TEST) test strip 100 Strip 3 Sig: Test blood sugar(s) 1 times daily. Dx: E11.9. Insulin: No, Brand covered by insurance RX INSTRUCTIONS: Patient aware RX will be sent to pharmacy. No need to notify patient. Birdie Sarmiento Pss documented in this encounter [facility] 11-26-2022 Instructions Treva Sandoval APRN.CNP - 11/26/2022 8:48 AM EST Get repeat labs in 6 months prior to next visit. Continue to eat a well balanced diet Monitor sugars at home Continue to take all medication as prescribed. Follow up in 6 months or sooner as needed. documented in this encounter [facility] 11-26-2022 History of Present illness Narrative This is a 87 year old female who presents today with: Patient presents with: 6 Month Exam HISTORY OF PRESENT ILLNESS: Lucille Thurman is a 87 year old female. Patient presents with: 6 Month Exam Here in the office for 6-month follow-up. HTN: Taking lisinopril 40 mg daily and hydrochlorothiazide 12.5 mg daily. Checking blood pressure at home randomly, 140/70's. Denies chest pain, palpitations, dizziness, or edema. GERD: Taking omeprazole 20 mg every other day. Symptoms well controlled. Lipids: Taking Lipitor 80 mg daily. Working on diet. Tolerating medication well. DM: Taking Actos 50 mg daily and Amaryl 2 mg daily. Checking sugars at home, 96 today fasting. Watching diet most of the time. Denies any hypoglycemic episodes, increased thirst/urination, or foot lesions. Right Hand Arthritis: Using Meloxicam 15 mg daily. Has been using warm water in the morning which has been helpful. PAST MEDICAL HISTORY: PAST MEDICAL HISTORY Diagnosis Date Acquired absence of other specified parts of digestive tract Age-related osteoporosis without current pathological fracture Arteriosclerosis of both carotid arteries 10/19/2014 Cataract extraction status, left eye Cataract extraction status, right eye DDD (degenerative disc disease), cervical 09/29/2018 Diverticulosis of colon (without mention of hemorrhage) Diverticulosis Do not resuscitate Essential hypertension, benign 07/30/2010 Gastro-esophageal reflux disease without esophagitis History of fall Hyperlipidemia Inflammatory disease of breast snf (current) use 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 snf (current) use of oral hypoglycemic drugs Lumbar disc disease with radiculopathy 02/25/2011 Osteoporosis 03/17/2016 Personal history of (healed) traumatic fracture Presence of left artificial shoulder joint Right carotid bruit 10/16/2014 Type II or unspecified type diabetes mellitus without mention of complication, not stated as uncontrolled Unspecified hearing loss, bilateral Vitamin D deficiency 08/20/2011 PAST SURGICAL HISTORY Procedure Laterality Date APPENDECTOMY BX BREAST NEEDLE CORE W/O IMAGING GUIDANCE SPX cant recall which breast COLONOSCOPY FLX DX W/COLLJ SPEC WHEN PFRMD 07/25/2001 Colonoscopy CORRJ HALLUX VALGUS W/SESMDC W/DIST METAR OSTEOT cant remember which foot ESOPHAGOGASTRODUODENOSCOPY TRANSORAL DIAGNOSTIC 2014 Erosive gastritis, duodenal bulb ulcer LAPS SURG CHOLECYSTECTOMY W/CHOLANGIOGRAPHY 08-02-14 MRCP 2015 subcentimeter cyst MYRINGOTOMY ASPIR&/EUSTACHIAN TUBE NFLTJ ANES Myringotomy/tubes, right NEUROPLASTY &/TRANSPOS MEDIAN NRV CARPAL TUNNE 10-20-13 RIGHT PAST SURGICAL HISTORY OF skin CA face PAST SURGICAL HISTORY OF left partial shoulder replacement PULMONARY FUNCTION TEST ALLERGIES Metformin, Morphine, Oxycodone, and Prevacid [Lansoprazole] MEDICATIONS Current Outpatient Medications Medication Sig tiZANidine (ZANAFLEX) 4 mg tablet Take 1 tablet by mouth every 8 hours as needed (muscle spasms). glimepiride (AMARYL) 1 mg tablet Take 1 tablet by mouth daily with breakfast. lisinopril (ZESTRIL) 40 mg tablet Take 1 tablet by mouth once daily. pioglitazone (ACTOS) 15 mg tablet Take 1 tablet by mouth once daily. hydroCHLOROthiazide (HYDRODIURIL, ESIDRIX) 12.5 mg capsule Take 1 capsule by mouth once daily. atorvastatin (LIPITOR) 80 mg tablet Take 1 tablet by mouth daily at bedtime. For cholesterol. meloxicam (MOBIC) 15 mg tablet Take 1 tablet by mouth once daily. With food. omeprazole (PRILOSEC) 20 mg capsule take 1 capsule by mouth once daily 1/2 HOUR BEFORE BREAKFAST (Patient taking differently: Take 20 mg by mouth every other day. take 1 capsule by mouth once daily 1/2 HOUR BEFORE BREAKFAST) blood sugar diagnostic (BLOOD GLUCOSE TEST) test strip Test blood sugar(s) 1 times daily. Dx: E11.9. Insulin: No, Brand covered by insurance polyethylene glycol 3350 (MIRALAX) 17 gram/dose powder Take one scoop daily with glass of juice/water/etc. (Patient taking differently: as needed. Take one scoop daily with glass of juice/water/etc.) MULTIVITS,TH W-CA,FE,OTH MIN (MULTIVITAMIN AND MINERAL ORAL) Take 1 tablet by mouth once daily. lancets(FREESTYLE LANCETS) use daily blood glucose control high&low(FREESTYLE CONTROL SOLN) use as directed No current facility-administered medications for this visit. FAMILY HISTORY Problem Relation Age of Onset Diabetes Mother Heart Mother COPD Father Colon Cancer Sister Diabetes Sister Alcohol abuse Sister COPD Sister COPD Sister Diabetes Brother Kidney Disease Brother Kidney Disease Brother Diabetes Daughter Social History Tobacco Use Smoking status: Never Smokeless tobacco: Never Vaping Use Vaping Use: Never used Substance Use Topics Alcohol use: No Drug use: No REVIEW OF SYSTEMS GENERAL: No weight loss, malaise or fevers/chills HEENT: Negative for frequent or significant headaches, No changes in hearing or vision. NECK: Negative for lumps, goiter, pain and significant neck swelling RESPIRATORY: Negative for cough, hemoptysis, wheezing, dyspnea or shortness of breath CARDIOVASCULAR: Negative for chest pain, leg swelling, orthopnea, or palpitations GI: No nausea, vomiting, or diarrhea/constipation. No hematochezia/melena. No heartburn or reflux symptoms. : No history of dysuria, frequency or incontinence MUSCULOSKELETAL: Negative for joint pain or swelling. SKIN: Negative for lesions, rash, and itching ENDOCRINE: Negative for cold or heat intolerance, polyuria, polydipsia and goiter NEURO: No history of headaches, syncope, paralysis, seizures or tremors MOOD: Negative for depression, anxiety, or suicidal ideation. Component Latest Ref Rng & Units 11/19/2022 WBC 3.70 - 11.00 k/uL 8.59 RBC 3.90 - 5.20 m/uL 3.42 (L) Hemoglobin 11.5 - 15.5 g/dL 10.4 (L) Hematocrit 36.0 - 46.0 % 31.7 (L) MCV 80.0 - 100.0 fL 92.7 MCH 26.0 - 34.0 pg 30.4 MCHC 30.5 - 36.0 g/dL 32.8 RDW-CV 11.5 - 15.0 % 13.3 Platelet Count 150 - 400 k/uL 230 MPV 9.0 - 12.7 fL 9.7 Neut% % 76.6 Abs Neut (ANC) 1.45 - 7.50 k/uL 6.58 Lymph% % 14.1 Abs Lymph 1.00 - 4.00 k/uL 1.21 [place]% % 7.1 Abs [place] <0.87 k/uL 0.61 Eosin% % 1.5 Abs Eosin <0.46 k/uL 0.13 Baso% % 0.5 Abs Baso <0.11 k/uL 0.04 Immature Gran % % 0.2 IMMATURE GRANS (ABS) <0.10 k/uL <0.03 NRBC /100 WBC 0.0 Absolute nRBC <0.01 k/uL <0.01 DTYPE Auto Protein, Total 6.3 - 8.0 g/dL 7.1 Albumin 3.9 - 4.9 g/dL 4.1 Calcium 8.5 - 10.2 mg/dL 9.8 Bilirubin, Total 0.2 - 1.3 mg/dL 0.6 Alkaline Phosphatase 34 - 123 U/L 65 AST 13 - 35 U/L 31 ALT 7 - 38 U/L 22 Glucose 74 - 99 mg/dL 151 (H) BUN 7 - 21 mg/dL 29 (H) Creatinine 0.58 - 0.96 mg/dL 1.15 (H) Sodium 136 - 144 mmol/L 139 Potassium 3.7 - 5.1 mmol/L 4.6 Chloride 97 - 105 mmol/L 105 CO2 22 - 30 mmol/L 25 Anion Gap 9 - 18 mmol/L 9 eGFR >=60 mL/min/1.73m 46 (L) Cholesterol, Total <200 mg/dL 155 Triglyceride <150 mg/dL 69 HDL Cholesterol >39 mg/dL 50 Non HDL Cholesterol <130 mg/dL 105 Fasting Time hrs 12 VLDL Cholesterol <30 mg/dL 14 TC:HDL Ratio <5.10 3.10 LDL Cholesterol <100 mg/dL 91 LDL:HDL Ratio <2.54 1.82 EXAM: BP 140/80 Pulse 78 Resp 16 Wt 73.5 kg (162 lb) SpO2 98% BMI 28.70 kg/m PHYSICAL EXAM: General Appearance: Well appearing, alert, in no acute distress, well-hydrated, well nourished. Skin: Skin color, texture, turgor normal, no suspicious rashes or lesions. Head: Normocephalic, no masses, lesions, tenderness or abnormalities. Eyes: Anicteric sclera. Extraocular movements are intact. Lungs: Lungs clear to auscultation. No wheezing, rhonchi, rales. Heart: RRR without murmur, gallop, or rubs. No ectopy. Extremities: No deformities, edema, skin discoloration, clubbing or cyanosis. Good capillary refill. Musculoskeletal: No joint swelling, deformity, or tenderness. Peripheral Pulses: Normal, Capillary refill <2secs, strong peripheral pulses, Pulses palpable. Neurologic: Gait normal. Sensation grossly intact. ASSESSMENT/PLAN: 1. 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 3 chronic kidney disease, without long-term current use of insulin ([facility]) - ICD9: 250.40, 585.3, ICD10: E11.22, N18.30 (primary diagnosis) - Controlled - Continue current medications - Counseled on healthy diet and regular exercise - Continue to monitor sugars at home. - Get repeat labs prior to next OV. - HGB A1C - COMP METABOLIC PANEL 2. Essential hypertension, benign - ICD9: 401.1, ICD10: I10 - suboptimal control - Encouraged dietary sodium restriction/DASH diet - Recommended regular aerobic exercise. - Recommend home blood pressure monitoring, to bring results in on next visit - Goal of BP <130/80 - CBC + DIFF 3. Hyperlipidemia LDL goal <100 - ICD9: 272.4, ICD10: E78.5 - good control - Continue current medication. - LIPID PANEL BASIC 4. Gastroesophageal reflux disease with esophagitis without hemorrhage - ICD9: 530.81, 530.10, ICD10: K21.00 - Continue current medication. 5. Arthritis of hand - ICD9: 716.94, ICD10: M19.049 - Continue with meloxicam. Follow up in 6 months or sooner as needed. Discussed treatment plan and patient voices understanding. Patient's questions answered appropriately. Medications and potential side effects were discussed and patient voices understanding. Treva Sandoval APRN.BERNARDO This note was partially generated using [employer] voice recognition system. Note was reviewed for accuracy. There may be minor misspellings or grammar miscues with [employer] voice recognition. documented in this encounter [facility] 11-17-2022 History of Present illness Narrative Chief Complaint Patient presents with: Pain: Reports started Wednesday- starts in right buttuck and radiates down back of leg HPI Lucille Thurman is a 87 year old female who presents here today for Above Complaints. Accompanied today by her daughter Deanna. Patient complaining of right buttock pain which radiates to her ankle which started 4 days ago when she was driving home from [place]. Described as constant dull pain, currently 1/10. Worst at night when lying down. Not treating with anything OTC. Has meloxicam at home for her hands which she takes PRN for her hands. Took this yesterday which did not help much with this new pain. Pain stable for the last 4 days. Denies fall/injury, loss of bowel/bladder control, saddle anesthesia, LE weakness, back pain. Notes they stopped every 2 hours to stretch their legs. Past medical history, appointments, medications, allergies reviewed. Previous Medical History PAST MEDICAL HISTORY Diagnosis Date Acquired absence of other specified parts of digestive tract Age-related osteoporosis without current pathological fracture Arteriosclerosis of both carotid arteries 10/19/2014 Cataract extraction status, left eye Cataract extraction status, right eye DDD (degenerative disc disease), cervical 09/29/2018 Diverticulosis of colon (without mention of hemorrhage) Diverticulosis Do not resuscitate Essential hypertension, benign 07/30/2010 Gastro-esophageal reflux disease without esophagitis History of fall Hyperlipidemia Inflammatory disease of breast snf (current) use 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 snf (current) use of oral hypoglycemic drugs Lumbar disc disease with radiculopathy 02/25/2011 Osteoporosis 03/17/2016 Personal history of (healed) traumatic fracture Presence of left artificial shoulder joint Right carotid bruit 10/16/2014 Type II or unspecified type diabetes mellitus without mention of complication, not stated as uncontrolled Unspecified hearing loss, bilateral Vitamin D deficiency 08/20/2011 Previous Surgical History PAST SURGICAL HISTORY Procedure Laterality Date APPENDECTOMY BX BREAST NEEDLE CORE W/O IMAGING GUIDANCE SPX cant recall which breast COLONOSCOPY FLX DX W/COLLJ SPEC WHEN PFRMD 07/25/2001 Colonoscopy CORRJ HALLUX VALGUS W/SESMDC W/DIST METAR OSTEOT cant remember which foot ESOPHAGOGASTRODUODENOSCOPY TRANSORAL DIAGNOSTIC 2014 Erosive gastritis, duodenal bulb ulcer LAPS SURG CHOLECYSTECTOMY W/CHOLANGIOGRAPHY 08-02-14 MRCP 2014 subcentimeter cyst MYRINGOTOMY ASPIR&/EUSTACHIAN TUBE NFLTJ ANES Myringotomy/tubes, right NEUROPLASTY &/TRANSPOS MEDIAN NRV CARPAL TUNNE 10-20-13 RIGHT PAST SURGICAL HISTORY OF skin CA face PAST SURGICAL HISTORY OF left partial shoulder replacement PULMONARY FUNCTION TEST Family History FAMILY HISTORY Problem Relation Age of Onset Diabetes Mother Heart Mother COPD Father Colon Cancer Sister Diabetes Sister Alcohol abuse Sister COPD Sister COPD Sister Diabetes Brother Kidney Disease Brother Kidney Disease Brother Diabetes Daughter Patient Allergies ALLERGIES Allergen Reactions Metformin Diarrhea Morphine GI Upset Oxycodone GI Upset Prevacid [Lansopraz* Current Medications Current Outpatient Medications on File Prior to Visit Medication Sig glimepiride (AMARYL) 1 mg tablet Take 1 tablet by mouth daily with breakfast. lisinopril (ZESTRIL) 40 mg tablet Take 1 tablet by mouth once daily. pioglitazone (ACTOS) 15 mg tablet Take 1 tablet by mouth once daily. hydroCHLOROthiazide (HYDRODIURIL, ESIDRIX) 12.5 mg capsule Take 1 capsule by mouth once daily. atorvastatin (LIPITOR) 80 mg tablet Take 1 tablet by mouth daily at bedtime. For cholesterol. meloxicam (MOBIC) 15 mg tablet Take 1 tablet by mouth once daily. With food. omeprazole (PRILOSEC) 20 mg capsule take 1 capsule by mouth once daily 1/2 HOUR BEFORE BREAKFAST (Patient taking differently: Take 20 mg by mouth every other day. take 1 capsule by mouth once daily 1/2 HOUR BEFORE BREAKFAST) polyethylene glycol 3350 (MIRALAX) 17 gram/dose powder Take one scoop daily with glass of juice/water/etc. (Patient taking differently: as needed. Take one scoop daily with glass of juice/water/etc.) MULTIVITS,TH W-CA,FE,OTH MIN (MULTIVITAMIN AND MINERAL ORAL) Take 1 tablet by mouth once daily. blood sugar diagnostic (BLOOD GLUCOSE TEST) test strip Test blood sugar(s) 1 times daily. Dx: E11.9. Insulin: No, Brand covered by insurance lancets(FREESTYLE LANCETS) use daily blood glucose control high&low(FREESTYLE CONTROL SOLN) use as directed No current facility-administered medications on file prior to visit. Social History Social History Tobacco Use Smoking status: Never Smokeless tobacco: Never Vaping Use Vaping Use: Never used Substance Use Topics Alcohol use: No Drug use: No Review of Symptoms REVIEW OF SYSTEMS See HPI EXAM: BP 126/70 Pulse 73 Temp 36.3 C (97.3 F) Resp 16 Wt 72.6 kg (160 lb) SpO2 96% BMI 28.34 kg/m General Appearance: Well appearing, alert, in no acute distress, well-hydrated, well nourished.. Skin: Skin color, texture, turgor normal, no suspicious rashes or lesions. Back:no pain to palpation of vertebrae, good flexion and extension, good range of motion, no muscle tenderness, reflexes are 2+ and symmetric, motor and sensory appear to be normal, negative SLR test, no evidence of scoliosis Health Maintenance List COVID-19 VACCINE(4 - Booster for [employer] series) due on 11/05/2021 LDL CHOLESTEROL due on 05/15/2022 ADVANCE DIRECTIVE DISCUSSION due on 09/20/2022 DEPRESSION ASSESSMENT due on 09/20/2022 URINE ALBUMIN:CREATININE RATIO due on 11/24/2022 DIABETIC FOOT EXAM due on 11/27/2022 DTAP,TDAP,TD(1 - Tdap) due on 05/28/2023 HBA1C due on 11/19/2022 DILATED RETINAL EXAM due on 08/26/2023 BONE DENSITY Completed INFLUENZA Completed SHINGRIX VACCINE Completed PNEUMOCOCCAL: 65+ Completed ASSESSMENT/PLAN: 1. Sciatica, right side - ICD9: 724.3, ICD10: M54.31 Sciatica after spending hours riding in car from [place] - Ice for localized tenderness - Warm moist heat for 20 min three times a day - NSAIDS- Take meloxicam daily for 1-2 weeks - Patient given instructions use of medications as ordered, intermittent rest, back care exercise program, weight loss, improved posture, proper lifting techniques, and intermittent use of heat - Call if not improving in 1-2 weeks and will refer to PT. Rui Mendez MD documented in this encounter [facility] 10-19-2022 Miscellaneous Notes The following approved medication requests have been transmitted electronically. Requested Prescriptions Pending Prescriptions Disp Refills lisinopril (ZESTRIL) 40 mg tablet 90 tablet 3 Sig: Take 1 tablet by mouth once daily. pioglitazone (ACTOS) 15 mg tablet 90 tablet 3 Sig: Take 1 tablet by mouth once daily. hydroCHLOROthiazide (HYDRODIURIL, ESIDRIX) 12.5 mg capsule 90 capsule 3 Sig: Take 1 capsule by mouth once daily. atorvastatin (LIPITOR) 80 mg tablet 90 tablet 3 Sig: Take 1 tablet by mouth daily at bedtime. For cholesterol. Treva Sandoval APRN.CNP Patient has been identified by name and date of : Yes Requested Prescriptions Pending Prescriptions Disp Refills lisinopril (ZESTRIL) 40 mg tablet 90 tablet 3 Sig: Take 1 tablet by mouth once daily. pioglitazone (ACTOS) 15 mg tablet 90 tablet 3 Sig: Take 1 tablet by mouth once daily. hydroCHLOROthiazide (HYDRODIURIL, ESIDRIX) 12.5 mg capsule 90 capsule 3 Sig: Take 1 capsule by mouth once daily. atorvastatin (LIPITOR) 80 mg tablet 90 tablet 3 Sig: Take 1 tablet by mouth daily at bedtime. For cholesterol. DAPHNE-09/03/22 Labs-05/22/22 NOV-11/26/21 med filled 10/08/21 RX INSTRUCTIONS: PER PATIENT SHE IS STILL TAKING AMARYL 1 MG TABLET ONCE DAILY NO LONGER TAKING THE 2 MG THIS WAS REDUCED BY TREVA ON 09/03/2022 PER PATIENT Patient aware RX will be sent to pharmacy. No need to notify patient. Galina Charlton [employer] documented in this encounter [facility] 10-08-2022 Miscellaneous Notes Pt called and is notified of providers message. Pt voices understanding. Radha Montana RN Okay, let Lucille know that I have sent. The following approved medication requests have been transmitted electronically. Requested Prescriptions Signed Prescriptions Disp Refills meloxicam (MOBIC) 15 mg tablet 30 tablet 1 Sig: Take 1 tablet by mouth once daily. With food. Authorizing Provider: IMTIAZ HODGE APRN.PUBLIC RELATIONS OFFICER Lucille Thurman is calling Allie Stanton MD today she stated she was calling for a refill of Meloxicam, then she stated she was using this medication for her hands; it helped; now she has pain in her legs. She has taken 3 Tylenol Arthritis about 5:30 AM today that did not help; she did not sleep last night. Patient is requesting a refill on Meloxicam. However, she also has questions because she has 9 pills left of Meloxicam (no refills) and she is concerned they . She started describing the pain in her legs and difficulty moving; concerned about showering. Please call as soon as possible. Patient has been identified by name and birthdate. Duration of symptoms: N/A Person calling: self Call patient at: at home [phone] (home) [phone] (work) [phone] (cell) Was an appointment scheduled: No Closing statement: Symptom Call: Thank you for calling [facility], your call is very important. A nurse will call in approximately 2-4 hours during business hours. If this is an emergency, please contact 911. Winnie Yanez documented in this encounter [facility] 09-08-2022 Miscellaneous Notes Pt called in and notified of results and provider message. Pt reports she does not get into [facility]. oRxana Gurrola LPN documented in this encounter [facility] 09-08-2022 Miscellaneous Notes Pt notified of results via [employer]. 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 I would recommend that she continue with the meloxicam/Mobic 15 mg daily. Please let me know if she has any questions. Thank you. Treva Sandoval APRN.BERNARDO documented in this encounter [facility] 09-03-2022 History of Present illness Narrative Radiology Service Progress Note PATIENT NAME: Lucille Thurman DATE OF SERVICE: September 03, 2022 TIME: 11:12 AM PATIENT IDENTITY VERIFICATION COMPLETED USING TWO (2) IDENTIFIERS: Name and Date of confirmed by patient verbally. FALL SCREENING: Has the patient had 2 falls in the last year or 1 fall with injury or currently using an Ambulatory Assistive Device (Walker, Cane, Wheelchair, Crutches, etc.)? No PATIENT GENDER DATA: Female. status: : No status: NO. PATIENT RELEVANT IMPLANT DATA REVIEWED: Yes RADIOLOGY DEPARTMENT: General X-ray: Exam(s) Completed: Upper Extremity X-Ray(s): Hand, bilateral PERIPHERAL IV DATA: Not applicable SIGNED BY: RT Jose David(R) September 03, 2022 11:12 AM documented in this encounter [facility] 09-03-2022 Instructions Treva Sandoval APRN.BERNARDO - 09/03/2022 10:54 AM EST Get xray of hands completed. Increase meloxicam 15 mg daily, take with food. May continue to use heat to the hands. Follow up pending test results or sooner as needed. documented in this encounter [facility] 09-03-2022 History of Present illness Narrative This is a 87 year old female who presents today with: Patient presents with: Acute Visit: follow up bilat hands HISTORY OF PRESENT ILLNESS: Lucille Thurman is a 87 year old female. Patient presents with: Acute Visit: follow up bilat hands In the office for follow-up for hand pain. Saw PCP in in July, having ongoing right hand pain and swelling. Placed on Mobic 7.5 mg daily and discussed possible hand x-ray. Refers that pain is in both hands now. Woke up early this morning with left hand pain and swelling. Meloxicam has not helped. Pain is sharp, dull, throbbing. Difficulty making a fist or using hands. No numbness/tingling. PAST MEDICAL HISTORY: PAST MEDICAL HISTORY Diagnosis Date Acquired absence of other specified parts of digestive tract Age-related osteoporosis without current pathological fracture Arteriosclerosis of both carotid arteries 10/19/2014 Cataract extraction status, left eye Cataract extraction status, right eye DDD (degenerative disc disease), cervical 09/29/2018 Diverticulosis of colon (without mention of hemorrhage) Diverticulosis Do not resuscitate Essential hypertension, benign 07/30/2010 Gastro-esophageal reflux disease without esophagitis History of fall Hyperlipidemia Inflammatory disease of breast snf (current) use 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 hypoglycemic drugs Lumbar disc disease with radiculopathy 02/25/2011 Osteoporosis 03/17/2016 Personal history of (healed) traumatic fracture Presence of left artificial shoulder joint Right carotid bruit 10/16/2014 Type II or unspecified type diabetes mellitus without mention of complication, not stated as uncontrolled Unspecified hearing loss, bilateral Vitamin D deficiency 08/20/2011 PAST SURGICAL HISTORY Procedure Laterality Date APPENDECTOMY BX BREAST NEEDLE CORE W/O IMAGING GUIDANCE SPX cant recall which breast COLONOSCOPY FLX DX W/COLLJ SPEC WHEN PFRMD 07/25/2001 Colonoscopy CORRJ HALLUX VALGUS W/SESMDC W/DIST METAR OSTEOT cant remember which foot ESOPHAGOGASTRODUODENOSCOPY TRANSORAL DIAGNOSTIC 2014 Erosive gastritis, duodenal bulb ulcer LAPS SURG CHOLECYSTECTOMY W/CHOLANGIOGRAPHY 08-02-14 MRCP 2014 subcentimeter cyst MYRINGOTOMY ASPIR&/EUSTACHIAN TUBE NFLTJ ANES Myringotomy/tubes, right NEUROPLASTY &/TRANSPOS MEDIAN NRV CARPAL TUNNE 10-20-13 RIGHT PAST SURGICAL HISTORY OF skin CA face PAST SURGICAL HISTORY OF left partial shoulder replacement PULMONARY FUNCTION TEST ALLERGIES Metformin, Morphine, Oxycodone, and Prevacid [Lansoprazole] MEDICATIONS Current Outpatient Medications Medication Sig meloxicam (MOBIC) 7.5 mg tablet Take 1 tablet by mouth once daily. With food. omeprazole (PRILOSEC) 20 mg capsule take 1 capsule by mouth once daily 1/2 HOUR BEFORE BREAKFAST blood sugar diagnostic (BLOOD GLUCOSE TEST) test strip Test blood sugar(s) 1 times daily. Dx: E11.9. Insulin: No, Brand covered by insurance lisinopril (ZESTRIL) 40 mg tablet Take 1 tablet by mouth once daily. pioglitazone (ACTOS) 15 mg tablet Take 1 tablet by mouth once daily. hydroCHLOROthiazide 12.5 mg capsule Take 1 capsule by mouth once daily. atorvastatin (LIPITOR) 80 mg tablet Take 1 tablet by mouth daily at bedtime. For cholesterol. polyethylene glycol 3350 (MIRALAX) 17 gram/dose powder Take one scoop daily with glass of juice/water/etc. MULTIVITS,TH W-CA,FE,OTH MIN (MULTIVITAMIN AND MINERAL ORAL) Take 1 tablet by mouth once daily. lancets(FREESTYLE LANCETS) use daily blood glucose control high&low(FREESTYLE CONTROL SOLN) use as directed No current facility-administered medications for this visit. FAMILY HISTORY Problem Relation Age of Onset Diabetes Mother Heart Mother COPD Father Colon Cancer Sister Diabetes Sister Alcohol abuse Sister COPD Sister COPD Sister Diabetes Brother Kidney Disease Brother Kidney Disease Brother Diabetes Daughter Social History Tobacco Use Smoking status: Never Smokeless tobacco: Never Vaping Use Vaping Use: Never used Substance Use Topics Alcohol use: No Drug use: No REVIEW OF SYSTEMS GENERAL: No weight loss, malaise or fevers/chills HEENT: Negative for frequent or significant headaches, No changes in hearing or vision. NECK: Negative for lumps, goiter, pain and significant neck swelling RESPIRATORY: Negative for cough, hemoptysis, wheezing, dyspnea or shortness of breath CARDIOVASCULAR: Negative for chest pain, leg swelling, orthopnea, or palpitations GI: No nausea, vomiting, or diarrhea/constipation. No hematochezia/melena. No heartburn or reflux symptoms. : No history of dysuria, frequency or incontinence MUSCULOSKELETAL: + Bilateral hand pain SKIN: Negative for lesions, rash, and itching ENDOCRINE: Negative for cold or heat intolerance, polyuria, polydipsia and goiter NEURO: No history of headaches, syncope, paralysis, seizures or tremors MOOD: Negative for depression, anxiety, or suicidal ideation. EXAM: BP 160/68 Pulse 79 Resp 16 Wt 71.2 kg (157 lb) SpO2 97% BMI 27.81 kg/m PHYSICAL EXAM: General Appearance: Well appearing, alert, in no acute distress, well-hydrated, well nourished. Skin: Skin color, texture, turgor normal, no suspicious rashes or lesions. Head: Normocephalic, no masses, lesions, tenderness or abnormalities. Eyes: Anicteric sclera. Extraocular movements are intact. Lungs: Lungs clear to auscultation. No wheezing, rhonchi, rales. Heart: RRR without murmur, gallop, or rubs. No ectopy. Extremities: No deformities, edema, skin discoloration, clubbing or cyanosis. Good capillary refill. Musculoskeletal: Bilateral mild hand edema noted, no erythema. Decreased color expert strength and difficulty making a fist. Nontender to palpation.. Peripheral Pulses: Normal, Capillary refill <2secs, strong peripheral pulses, Pulses palpable. Neurologic: Gait normal. Sensation grossly intact. ASSESSMENT/PLAN: 1. Bilateral hand pain - ICD9: 729.5, ICD10: M79.641, M79.642 - Increase meloxicam 15 mg daily, take with food. - Get xray of hands bilaterally - Continue with warm heat - XR HAND GENERAL 3V PA/LAT/OBL BILATERAL - MELOXICAM 15 MG TABLET Follow-up pending test results or sooner as needed. Discussed treatment plan and patient voices understanding. Patient's questions answered appropriately. Medications and potential side effects were discussed and patient voices understanding. Treva Sandoval APRN.BERNARDO This note was partially generated using [employer] voice recognition system. Note was reviewed for accuracy. There may be minor misspellings or grammar miscues with [employer] voice recognition. documented in this encounter [facility] 02-12-2022 Miscellaneous Notes February 12, 2022 PID: [id number] Lucille Thurman [address] [place] [id number] Dear Ms. Thurman, We are pleased to inform you that the results of your recent breast imaging exam on 02/12/2022 are normal. Your mammogram demonstrates that you have dense breast tissue, which could hide abnormalities. Dense breast tissue, in and of itself, is a relatively common condition. Therefore, this information is not provided to cause undue concern; rather, it is to raise your awareness and promote discussion with your health care provider regarding the presence of dense breast tissue in addition to other risk factors. Early detection of cancer is very important. We also understand recommendations regarding breast cancer screening are controversial. Please discuss with your primary care provider which strategy is best for you and whether a mammogram is right for you. Your imaging studies and report will be kept on file at [facility] as part of your permanent medical record and are available for your continuing care. Thank you for allowing us to help in meeting your health care needs. Sincerely, Dr. Hand Interpreting Radiologist [facility] (Normal over 40) documented in this encounter [facility] 02-12-2022 History of Present illness Narrative Radiology Service Progress Note PATIENT NAME: Lucille Thurman DATE OF SERVICE: February 12, 2022 TIME: 9:39 AM PATIENT IDENTITY VERIFICATION COMPLETED USING TWO (2) IDENTIFIERS: Name and Date of confirmed by patient verbally. FALL SCREENING: Has the patient had 2 falls in the last year or 1 fall with injury or currently using an Ambulatory Assistive Device (Walker, Cane, Wheelchair, Crutches, etc.)? No PATIENT GENDER DATA: Female. status: : No status: NO. PATIENT RELEVANT IMPLANT DATA REVIEWED: Not Applicable RADIOLOGY DEPARTMENT: Mammography PERIPHERAL IV DATA: Not applicable SIGNED BY: RT Liya(R) February 12, 2022 9:39 AM documented in this encounter [facility] 12-31-2021 Miscellaneous Notes Printed and mailed Luana Degroot Cma Team - I completed a letter moon Rx for her. Please print and mail to her. Khari Sunshine APRN.SHAHEEN CHANG Patient calling with request for script for kenya mustafa. Please mail to home address on file. See previous script in Epic letters 03/25/17. Bibiana Diaz RN documented in this encounter [facility] 12-19-2021 History of Present illness Narrative Radiology Service Progress Note PATIENT NAME: Lucille Thurman DATE OF SERVICE: December 19, 2021 TIME: 3:41 PM PATIENT IDENTITY VERIFICATION COMPLETED USING TWO (2) IDENTIFIERS: Name and Date of confirmed by patient verbally. FALL SCREENING: Has the patient had 2 falls in the last year or 1 fall with injury or currently using an Ambulatory Assistive Device (Walker, Cane, Wheelchair, Crutches, etc.)? No PATIENT GENDER DATA: Female. status: : No status: NO. PATIENT RELEVANT IMPLANT DATA REVIEWED: Not Applicable RADIOLOGY DEPARTMENT: General X-ray: Exam(s) Completed: Lower Extremity X-Ray(s): Knee, AP / LAT Right and Wt. Bearing PERIPHERAL IV DATA: Not applicable SIGNED BY: RT Karlos(R) December 19, 2021 3:41 PM documented in this encounter [facility] 12-19-2021 Instructions Khari Sunshine APRN.BERNARDO, SHAHEEN - 12/19/2021 3:27 PM EDT Follow-up with follow-up with me if symptoms worsen or do not improve. Schedule mammogram. Tylenol for knee pain daily X-ray to be completed today Limit bending, jumping and squatting Ice for comfort care. Modified rest followed by increased activity as tolerated. Return to the clinic or seek care at [facility] for any worsening signs or symptoms: such as fevers, chills, worsening pain, nausea, or diarrhea. For severe symptoms seek care at the closest ER. Plan of care, medicaiton side effects and management reviewed. Patient verbalizes understanding of instructions. Healthy Habits: Recommend regular physical activity, nutrition and he althy eating habits. Consume a variety of foods every day focusing on fruits, vegetables and lean meats). Eat foods low in fat, saturated fat and cholesterol. Eat a limited amount of salt and sodium. Drink adequate amounts of water and limit sugary drinks. Exercise portion control in meal selection. Establish a mindset of a wellness approach to health. Thank you for allowing me to provide your care today. I look forward to seeing you again and maintaining your health. Khari Sunshine DNP.BERNARDO documented in this encounter [facility] 12-19-2021 History of Present illness Narrative Chief Complaint Patient presents with: Knee Pain HPI Lucille Thurman is a 86 year old female who presents here today for 6 month follow up. This is an established patient of Dr. Khari Sunshine APRN.SHAHEEN CHANG. Denies any recent urgent care visits, ER visits or hospitalizations. Past Medical History: Cervical DDD, GERD, HTN, HLD, Vit D Def, Osteoporosis, type 2 diabetes, diverticulosis Specialty providers: None Right knee pain: States no recent musculoskeletal injury or trauma. Woke up 2 days ago with pain in right knee and slight swelling. Denies redness. Takes Tylenol which provides mild relief of symptoms. Knee hurt worse this morning but this afternoon feels better. Thought about canceling her appointment. Prior left hip surgery in 2014. Had a left hip fracture that she suffered after a fall. Has hardware still in place in the left hip/femur. Performs exercises routinely. Diabetes: Recent lab work completed. Check sugars daily. Hemoglobin A1c was 6.8%. Overall she is feeling well. Feels much better since her hip pain has resolved. Compliant with medications. Denies side effects. States she is no longer taking Fosamax. Past medical history, appointments, medications, allergies reviewed 12/19/2021 Previous Medical History PAST MEDICAL HISTORY Diagnosis Date Acquired absence of other specified parts of digestive tract Age-related osteoporosis without current pathological fracture Arteriosclerosis of both carotid arteries 10/19/2014 Cataract extraction status, left eye Cataract extraction status, right eye DDD (degenerative disc disease), cervical 09/29/2018 Diverticulosis of colon (without mention of hemorrhage) Diverticulosis Do not resuscitate Essential hypertension, benign 07/30/2010 Gastro-esophageal reflux disease without esophagitis History of fall Hyperlipidemia Inflammatory disease of breast snf (current) use 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 hypoglycemic drugs Lumbar disc disease with radiculopathy 02/25/2011 Osteoporosis 03/17/2016 Personal history of (healed) traumatic fracture Presence of left artificial shoulder joint Right carotid bruit 10/16/2014 Type II or unspecified type diabetes mellitus without mention of complication, not stated as uncontrolled Unspecified hearing loss, bilateral Vitamin D deficiency 08/20/2011 Previous Surgical History PAST SURGICAL HISTORY Procedure Laterality Date APPENDECTOMY BX BREAST NEEDLE CORE W/O IMAGING GUIDANCE SPX cant recall which breast COLONOSCOPY FLX DX W/COLLJ SPEC WHEN PFRMD 07/25/2001 Colonoscopy CORRJ HALLUX VALGUS W/SESMDC W/DIST METAR OSTEOT cant remember which foot ESOPHAGOGASTRODUODENOSCOPY TRANSORAL DIAGNOSTIC 2014 Erosive gastritis, duodenal bulb ulcer LAPS SURG CHOLECYSTECTOMY W/CHOLANGIOGRAPHY 08-02-14 MRCP 2014 subcentimeter cyst MYRINGOTOMY ASPIR&/EUSTACHIAN TUBE NFLTJ ANES Myringotomy/tubes, right NEUROPLASTY &/TRANSPOS MEDIAN NRV CARPAL TUNNE 10-20-13 RIGHT PAST SURGICAL HISTORY OF skin CA face PAST SURGICAL HISTORY OF left partial shoulder replacement PULMONARY FUNCTION TEST Family History FAMILY HISTORY Problem Relation Age of Onset Diabetes Mother Heart Mother COPD Father Colon Cancer Sister Diabetes Sister Alcohol abuse Sister COPD Sister COPD Sister Diabetes Brother Kidney Disease Brother Kidney Disease Brother Diabetes Daughter Patient Allergies ALLERGIES Allergen Reactions Metformin Diarrhea Morphine GI Upset Oxycodone GI Upset Prevacid [Lansopraz* Current Medications Current Outpatient Medications on File Prior to Visit Medication Sig glimepiride (AMARYL) 2 mg tablet Take 1 tablet by mouth daily with breakfast. lisinopril (ZESTRIL) 40 mg tablet Take 1 tablet by mouth once daily. pioglitazone (ACTOS) 15 mg tablet Take 1 tablet by mouth once daily. hydroCHLOROthiazide 12.5 mg capsule Take 1 capsule by mouth once daily. atorvastatin (LIPITOR) 80 mg tablet Take 1 tablet by mouth daily at bedtime. For cholesterol. blood sugar diagnostic (BLOOD GLUCOSE TEST) test strip Test blood sugar(s) 1 times daily. Dx: E11.9. Insulin: No, Brand covered by insurance alendronate (FOSAMAX) 70 mg tablet Take 1 tablet by mouth one time a week. Take with a full glass of water, on an empty stomach; do NOT lie down for 30minutes. omeprazole (PRILOSEC) 20 mg capsule take 1 capsule by mouth once daily 1/2 HOUR BEFORE BREAKFAST polyethylene glycol 3350 (MIRALAX) 17 gram/dose powder Take one scoop daily with glass of juice/water/etc. MULTIVITS,TH W-CA,FE,OTH MIN (MULTIVITAMIN AND MINERAL ORAL) Take 1 tablet by mouth once daily. lancets(FREESTYLE LANCETS) use daily blood glucose control high&low(FREESTYLE CONTROL SOLN) use as directed No current facility-administered medications on file prior to visit. Social History Social History Tobacco Use Smoking status: Never Smoker Smokeless tobacco: Never Used Vaping Use Vaping Use: Never used Substance Use Topics Alcohol use: No Drug use: No Review of Symptoms GENERAL: No weight loss, malaise or fevers. MUSCULOSKELETAL: Negative for generalized joint pain, swelling Resp: No SOB or diff breathing CARD: No CP or leg welling SKIN: Negative for lesions, rash, and itching Neuro: No lightheadedness or dizziness. No numbness or tingling in lower extremities EXAM: BP 126/68 Pulse 73 Resp 16 Wt 73.5 kg (162 lb) SpO2 98% BMI 28.70 kg/m General Appearance: Well appearing, alert, in no acute distress, well-hydrated, well nourished. Overweight. Skin: Skin color, texture, turgor normal Head: Normocephalic, no masses, lesions Eyes: Anicteric sclera. Extremities: No deformities, edema, skin discoloration. Knee Physical Exam: Knee Exam Left and Right: Inspection / Palpation LE (R/L): Anterior patellar tenderness on the right. No left knee tenderness. No crepitus. No masses. Mild anterior knee swelling. No deformity. Knee ROM (R/L): 0-130 / 0-130 Knee A/P Stability: No laxity or excessive ROM: Knee tests: (ANT/POST) Drawer - Negative Ez test - Negative Knee M/L Stability (R/L): Varus (0+/0+); Valgus (0+/0+) Patella: Nontender, No bruising, Strength LE: 5/5, plantar flexion intact Sensation: Subjective normal distal sensation bilaterally LE Skin: no rashes or lesions bilaterally. No ankle swelling. No pain at the ankle. Full range of motion Psych: Attitude - cooperative, easily engaged in conversation Appearance - normal, hygiene and grooming appropriate Affect - euthymic, normal mood Mental status: Alert, attentive. Speech is clear and fluent with good repetition, comprehension Coordination: There are no abnormal or extraneous movements. Gait/Stance: Posture is normal. Gait is steady with the use of a cane Health Maintenance List DTAP,TDAP,TD(1 - Tdap) Never done COVID-19 VACCINE(3 - Booster for [employer] series) due on 04/06/2021 ADVANCE DIRECTIVE DISCUSSION Never done URINE ALBUMIN:CREATININE RATIO due on 11/13/2021 DIABETIC FOOT EXAM due on 11/18/2021 HBA1C due on 11/15/2021 LDL CHOLESTEROL due on 05/15/2022 DILATED RETINAL EXAM due on 08/25/2022 BONE DENSITY Completed INFLUENZA Completed PNEUMOVAX AGE 65 AND OVER WITH 5YR LOOKBACK Completed SHINGRIX VACCINE Completed MENINGOCOCCAL CONJUGATE Aged Out Data reviewed Last 5 Encounter BP Readings: Date: BP: 11/27/2021 132/70 10/31/2021 138/80 05/22/2021 150/70 11/18/2020 159/68 05/16/2020 150/61 BMI Readings from Last 5 Encounters: 12/19/21 : 28.70 kg/m 11/27/21 : 28.52 kg/m 10/31/21 : 28.17 kg/m 05/22/21 : 28.17 kg/m 11/18/20 : 27.99 kg/m Last 5 Encounter Wt Readings: Date: Wt: 11/27/2021 73 kg (161 lb) 10/31/2021 72.1 kg (159 lb) 05/22/2021 72.1 kg (159 lb) 11/18/2020 71.7 kg (158 lb) 05/16/2020 69.4 kg (153 lb) Medication and allergy list reviewed, reconciled and updated 11/27/2021 Component Latest Ref Rng & Units 11/24/2021 WBC 3.70 - 11.00 k/uL 7.85 RBC 3.90 - 5.20 m/uL 3.30 (L) Hemoglobin 11.5 - 15.5 g/dL 10.2 (L) Hematocrit 36.0 - 46.0 % 32.0 (L) MCV 80.0 - 100.0 fL 97.0 MCH 26.0 - 34.0 pg 30.9 MCHC 30.5 - 36.0 g/dL 31.9 RDW-CV 11.5 - 15.0 % 12.8 Platelet Count 150 - 400 k/uL 270 MPV 9.0 - 12.7 fL 9.8 Neut% % 67.3 Abs Neut (ANC) 1.45 - 7.50 k/uL 5.29 Lymph% % 21.3 Abs Lymph 1.00 - 4.00 k/uL 1.67 [place]% % 8.8 Abs [place] <0.87 k/uL 0.69 Eosin% % 1.5 Abs Eosin <0.46 k/uL 0.12 Baso% % 0.8 Abs Baso <0.11 k/uL 0.06 Immature Gran % % 0.3 IMMATURE GRANS (ABS) <0.10 k/uL <0.03 NRBC /100 WBC 0.0 Absolute nRBC <0.01 k/uL <0.01 DTYPE Auto Protein, Total 6.3 - 8.0 g/dL 7.5 Albumin 3.9 - 4.9 g/dL 4.2 Calcium 8.5 - 10.2 mg/dL 9.5 Bilirubin, Total 0.2 - 1.3 mg/dL 0.3 Alkaline Phosphatase 34 - 123 U/L 75 AST 13 - 35 U/L 24 ALT 7 - 38 U/L 16 Glucose 74 - 99 mg/dL 112 (H) BUN 7 - 21 mg/dL 39 (H) Creatinine 0.58 - 0.96 mg/dL 1.25 (H) Sodium 136 - 144 mmol/L 140 Potassium 3.7 - 5.1 mmol/L 4.8 Chloride 97 - 105 mmol/L 105 CO2 22 - 30 mmol/L 25 Anion Gap 9 - 18 mmol/L 10 eGFR >=60 mL/min/1.73m 42 (L) Creatinine, Ur Random (UCRR) 20.0 - 300.0 mg/dL 74.9 Albumin, Urine Random mg/L 15.0 Albumin/Creat Ratio <30 mg/g 20 Hemoglobin A1C 4.3 - 5.6 % 6.8 (H) Estimated Average Glucose mg/dL 148 1. 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 3 chronic kidney disease, without long-term current use of insulin (HCC) - ICD9: 250.40, 585.3, ICD10: E11.22, N18.30 Well controlled. Reviewed labs with patient. - Continue current medications - Blood glucose monitoring on a 2 times a day schedule - Encouraged regular aerobic exercise and weight loss - Adhere to a low-cholesterol, low-fat, and low carb diet. Please ensure that they are eating lots of fruits and vegetables, eat lean cuts of meat, and limit surgry drinks. Perform regular physical activity and limit fast food. - BP goal of <130/80 - LDL goal of <100 - A1C Goal <7%. - Recheck labs in 6 months - HGB A1C - COMP METABOLIC PANEL - CBC + DIFF - BLOOD GLUCOSE TEST STRIPS 2. Stage 3b chronic kidney disease (HCC) - ICD9: 585.3, ICD10: N18.32 Stable, Continue to monitor. Several dong elements to ensuring and maintaining proper kidney function are: - Hydrating well with water daily (64 ounces daily), blood pressure control and not eating excessive protein or salt within diet. - Do not use Tobacco products - Keep blood sugars under control - Avoid all non-steroidal anti-inflammatory (NSAID) pain medications. - ibuprofen (motrin, advil), naproxen (alleve), indomethacin (indocin), meloxicam (mobic), celecoxib (celebrex), and diclofenac (volatren) are common ones. -Acetaminophen (tylenol) is safe for kidneys if taken as directed. Ask your pharmacist if you have questions. 3. Encounter for screening mammogram for malignant neoplasm of breast - ICD9: V76.12, ICD10: Z12.31 Shared decision make made continue with screening.. Consider discontinuing screening after this years Mammo. - SYD SCREENING 4. Chronic pain of right knee - ICD9: 719.46, 338.29, ICD10: M25.561, G89.29 Mild flare. Probable OA. Plan: Tylenol for knee pain daily X-ray to be completed today Limit bending, jumping and squatting Ice for comfort care. Modified rest followed by increased activity as tolerated. Return to the clinic or seek care at [facility] for any worsening signs or symptoms: such as fevers, chills, worsening pain, nausea, or diarrhea. For severe symptoms seek care at the closest ER. Plan of care, medicaiton side effects and management reviewed. Patient verbalizes understanding of instructions. - XR KNEE LIMITED 2V AP/LAT RIGHT Khari Sunshine APRN.PUBLIC RELATIONS OFFICER, DNP This note was completed with [employer] dictation software. Note was reviewed for accuracy. There may be minor misspellings or grammar miscues with Dragon 360 Dictation. I spent a total of 19 minutes on the date of the service which included preparing to see the patient, [id number] patient care, completing clinical documentation, performing a medically appropriate examination, counseling and educating the patient/family/caregiver and ordering medications, tests, or procedures. [place] [phone] This note was copied from previous note and exam dated 11/27/21 . Author is Khari Sunshine APRN.SHAHEEN CHANG note reviewed and changes have been made or updates noted in the copy & paste portion of an encounter. documented in this encounter [facility] 10-31-2021 History of Present illness Narrative Radiology Service Progress Note PATIENT NAME: Lucille Thurman DATE OF SERVICE: October 31, 2021 TIME: 4:09 PM PATIENT IDENTITY VERIFICATION COMPLETED USING TWO (2) IDENTIFIERS: Name and Date of confirmed by patient verbally. FALL SCREENING: Has the patient had 2 falls in the last year or 1 fall with injury or currently using an Ambulatory Assistive Device (Walker, Cane, Wheelchair, Crutches, etc.)? No PATIENT GENDER DATA: Female. status: : No status: NO. PATIENT RELEVANT IMPLANT DATA REVIEWED: Yes RADIOLOGY DEPARTMENT: General X-ray: Exam(s) Completed: Pelvis X-Ray: Pelvis with Hip Left PERIPHERAL IV DATA: Not applicable SIGNED BY: RT Jose David(R) October 31, 2021 4:09 PM documented in this encounter [facility] 01-29-2021 Miscellaneous Notes Please call pt to schedule appt. Order placed. ASSESSMENT/PLAN: 1. Encounter for screening mammogram for malignant neoplasm of breast - ICD9: V76.12, ICD10: Z12.31 - SYD SCREENING W NANO Sunshine APRN.SHAHEEN CHANG [facility] Patient reports Dr. Donahue placed an order for her to have a mammogram before he retired. States she is so frustrated. Tried to schedule it, and the person she talked to said she would need a new order, because Dr. Donahue's order is no good since he retired. Asking if Electrical Engineering Draftsperson can order the mammogram? Please phone patient with reply. documented in this encounter [facility] 09-28-2017 History of Past i llness Narrative Problem Noted Date Resolved Date Acute blood loss anemia 09/28/2017 09/29/19 19 Closed fracture of hip 09/28/2017 9 Trochanteric bursitis of left hip 12/07/2016 03/22/2019 Gall bladder stones 06/29/2014 10/19/2014 Gall bladder polyp 06/29/2014 10/19/2014 RUQ pain 06/29/2014 10/19/2014 Carpal tunnel syndrome 09/29/2013 9 Contact eczematous dermatitis 03/09/2013 Rash and other nonspecific skin eruption 013 09/29/2018 Actinic keratosis 03/09/2013 03/22/2019 Actinic skin damage 03/09/2013 03/22/2019 Xerosis cutis 03/09/2013 03/22/2019 Lateral epicondylitis 08/18/2011 07/01/2015 Chronic cough 08/08/2009 08/30/2015 documented as of this encounter (statuses as of 12/19/2021) [facility] History of Past illness Narrative* Problem Noted Date Resolved Date Acute blood loss anemia 09/28/2017 09/29/19 19 Closed fracture of hip 09/28/2017 9 Trochanteric bursitis of left hip 12/07/2016 03/22/2019 Gall bladder stones 06/29/2014 10/19/2014 Gall bladder polyp 06/29/2014 10/19/2014 RUQ pain 06/29/2014 10/19/2014 Carpal tunnel syndrome 09/29/2013 9 Contact eczematous dermatitis 03/09/2013 Rash and other nonspecific skin eruption 013 09/29/2018 Actinic keratosis 03/09/2013 03/22/2019 Actinic skin damage 03/09/2013 03/22/2019 Xerosis cutis 03/09/2013 03/22/2019 Lateral epicondylitis 08/18/2011 07/01/2015 Chronic cough 08/08/2009 08/30/2015 documented as of this encounter (statuses as of 01/08/2022) [facility] of Past illness Narrative* Problem Noted Date Resolved Date Acute blood loss anemia 09/28/2017 09/29/19 19 Closed fracture of hip 09/28/2017 9 Trochanteric bursitis of left hip 12/07/2016 03/22/2019 Gall bladder stones 06/29/2014 10/19/2014 Gall bladder polyp 06/29/2014 10/19/2014 RUQ pain 06/29/2014 10/19/2014 Carpal tunnel syndrome 09/29/2013 9 Contact eczematous dermatitis 03/09/2013 Rash and other nonspecific skin eruption 013 09/29/2018 Actinic keratosis 03/09/2013 03/22/2019 Actinic skin damage 03/09/2013 03/22/2019 Xerosis cutis 03/09/2013 03/22/2019 Lateral epicondylitis 08/18/2011 07/01/2015 Chronic cough 08/08/2009 08/30/2015 documented as of this encounter (statuses as of 02/13/2022) [facility] of Past illness Narrative* Problem Noted Date Resolved Date Acute blood loss anemia 09/28/2017 09/29/19 19 Closed fracture of hip 09/28/2017 9 Trochanteric bursitis of left hip 12/07/2016 03/22/2019 Gall bladder stones 06/29/2014 10/19/2014 Gall bladder polyp 06/29/2014 10/19/2014 RUQ pain 06/29/2014 10/19/2014 Carpal tunnel syndrome 09/29/2013 9 Contact eczematous dermatitis 03/09/2013 Rash and other nonspecific skin eruption 013 09/29/2018 Actinic keratosis 03/09/2013 03/22/2019 Actinic skin damage 03/09/2013 03/22/2019 Xerosis cutis 03/09/2013 03/22/2019 Lateral epicondylitis 08/18/2011 07/01/2015 Chronic cough 08/08/2009 08/30/2015 documented as of this encounter (statuses as of 02/14/2022) [facility] of Past illness Narrative* Problem Noted Date Resolved Date Acute blood loss anemia 09/28/2017 09/29/19 19 Closed fracture of hip 09/28/2017 9 Trochanteric bursitis of left hip 12/07/2016 03/22/2019 Gall bladder stones 06/29/2014 10/19/2014 Gall bladder polyp 06/29/2014 10/19/2014 RUQ pain 06/29/2014 10/19/2014 Carpal tunnel syndrome 09/29/2013 9 Contact eczematous dermatitis 03/09/2013 Rash and other nonspecific skin eruption 013 09/29/2018 Actinic keratosis 03/09/2013 03/22/2019 Actinic skin damage 03/09/2013 03/22/2019 Xerosis cutis 03/09/2013 03/22/2019 Lateral epicondylitis 08/18/2011 07/01/2015 Chronic cough 08/08/2009 08/30/2015 documented as of this encounter (statuses as of 02/17/2022) [facility] of Past illness Narrative* Problem Noted Date Resolved Date Acute blood loss anemia 09/28/2017 09/29/19 19 Closed fracture of hip 09/28/2017 9 Trochanteric bursitis of left hip 12/07/2016 03/22/2019 Gall bladder stones 06/29/2014 10/19/2014 Gall bladder polyp 06/29/2014 10/19/2014 RUQ pain 06/29/2014 10/19/2014 Carpal tunnel syndrome 09/29/2013 9 Contact eczematous dermatitis 03/09/2013 Rash and other nonspecific skin eruption 013 09/29/2018 Actinic keratosis 03/09/2013 03/22/2019 Actinic skin damage 03/09/2013 03/22/2019 Xerosis cutis 03/09/2013 03/22/2019 Lateral epicondylitis 08/18/2011 07/01/2015 Chronic cough 08/08/2009 08/30/2015 documented as of this encounter (statuses as of 09/03/2022) [facility] of Past illness Narrative* Problem Noted Date Resolved Date Acute blood loss anemia 09/28/2017 09/29/19 19 Closed fracture of hip 09/28/2017 9 Trochanteric bursitis of left hip 12/07/2016 03/22/2019 Gall bladder stones 06/29/2014 10/19/2014 Gall bladder polyp 06/29/2014 10/19/2014 RUQ pain 06/29/2014 10/19/2014 Carpal tunnel syndrome 09/29/2013 9 Contact eczematous dermatitis 03/09/2013 Rash and other nonspecific skin eruption 013 09/29/2018 Actinic keratosis 03/09/2013 03/22/2019 Actinic skin damage 03/09/2013 03/22/2019 Xerosis cutis 03/09/2013 03/22/2019 Lateral epicondylitis 08/18/2011 07/01/2015 Chronic cough 08/08/2009 08/30/2015 documented as of this encounter (statuses as of 09/08/2022) [facility] of Past illness Narrative* Problem Noted Date Resolved Date Acute blood loss anemia 09/28/2017 09/29/19 19 Closed fracture of hip 09/28/2017 9 Trochanteric bursitis of left hip 12/07/2016 03/22/2019 Gall bladder stones 06/29/2014 10/19/2014 Gall bladder polyp 06/29/2014 10/19/2014 RUQ pain 06/29/2014 10/19/2014 Carpal tunnel syndrome 09/29/2013 9 Contact eczematous dermatitis 03/09/2013 Rash and other nonspecific skin eruption 013 09/29/2018 Actinic keratosis 03/09/2013 03/22/2019 Actinic skin damage 03/09/2013 03/22/2019 Xerosis cutis 03/09/2013 03/22/2019 Lateral epicondylitis 08/18/2011 07/01/2015 Chronic cough 08/08/2009 08/30/2015 documented as of this encounter (statuses as of 09/08/2022) [facility] of Past illness Narrative* Problem Noted Date Resolved Date Acute blood loss anemia 09/28/2017 09/29/19 19 Closed fracture of hip 09/28/2017 9 Trochanteric bursitis of left hip 12/07/2016 03/22/2019 Gall bladder stones 06/29/2014 10/19/2014 Gall bladder polyp 06/29/2014 10/19/2014 RUQ pain 06/29/2014 10/19/2014 Carpal tunnel syndrome 09/29/2013 9 Contact eczematous dermatitis 03/09/2013 Rash and other nonspecific skin eruption 013 09/29/2018 Actinic keratosis 03/09/2013 03/22/2019 Actinic skin damage 03/09/2013 03/22/2019 Xerosis cutis 03/09/2013 03/22/2019 Lateral epicondylitis 08/18/2011 07/01/2015 Chronic cough 08/08/2009 08/30/2015 documented as of this encounter (statuses as of 10/08/2022) [facility] of Past illness Narrative* Problem Noted Date Resolved Date Acute blood loss anemia 09/28/2017 09/29/19 19 Closed fracture of hip 09/28/2017 9 Trochanteric bursitis of left hip 12/07/2016 03/22/2019 Gall bladder stones 06/29/2014 10/19/2014 Gall bladder polyp 06/29/2014 10/19/2014 RUQ pain 06/29/2014 10/19/2014 Carpal tunnel syndrome 09/29/2013 9 Contact eczematous dermatitis 03/09/2013 Rash and other nonspecific skin eruption 013 09/29/2018 Actinic keratosis 03/09/2013 03/22/2019 Actinic skin damage 03/09/2013 03/22/2019 Xerosis cutis 03/09/2013 03/22/2019 Lateral epicondylitis 08/18/2011 07/01/2015 Chronic cough 08/08/2009 08/30/2015 documented as of this encounter (statuses as of 10/19/2022) [facility] of Past illness Narrative* Problem Noted Date Resolved Date Acute blood loss anemia 09/28/2017 09/29/19 19 Closed fracture of hip 09/28/2017 9 Trochanteric bursitis of left hip 12/07/2016 03/22/2019 Gall bladder stones 06/29/2014 10/19/2014 Gall bladder polyp 06/29/2014 10/19/2014 RUQ pain 06/29/2014 10/19/2014 Carpal tunnel syndrome 09/29/2013 9 Contact eczematous dermatitis 03/09/2013 Rash and other nonspecific skin eruption 013 09/29/2018 Actinic keratosis 03/09/2013 03/22/2019 Actinic skin damage 03/09/2013 03/22/2019 Xerosis cutis 03/09/2013 03/22/2019 Lateral epicondylitis 08/18/2011 07/01/2015 Chronic cough 08/08/2009 08/30/2015 documented as of this encounter (statuses as of 11/17/2022) [facility] of Past illness Narrative* Problem Noted Date Resolved Date Acute blood loss anemia 09/28/2017 09/29/19 19 Closed fracture of hip 09/28/2017 9 Trochanteric bursitis of left hip 12/07/2016 03/22/2019 Gall bladder stones 06/29/2014 10/19/2014 Gall bladder polyp 06/29/2014 10/19/2014 RUQ pain 06/29/2014 10/19/2014 Carpal tunnel syndrome 09/29/2013 9 Contact eczematous dermatitis 03/09/2013 Rash and other nonspecific skin eruption 013 09/29/2018 Actinic keratosis 03/09/2013 03/22/2019 Actinic skin damage 03/09/2013 03/22/2019 Xerosis cutis 03/09/2013 03/22/2019 Lateral epicondylitis 08/18/2011 07/01/2015 Chronic cough 08/08/2009 08/30/2015 documented as of this encounter (statuses as of 11/26/2022) [facility] of Past illness Narrative* Problem Noted Date Resolved Date Acute blood loss anemia 09/28/2017 09/29/19 19 Closed fracture of hip 09/28/2017 9 Trochanteric bursitis of left hip 12/07/2016 03/22/2019 Gall bladder stones 06/29/2014 10/19/2014 Gall bladder polyp 06/29/2014 10/19/2014 RUQ pain 06/29/2014 10/19/2014 Carpal tunnel syndrome 09/29/2013 9 Contact eczematous dermatitis 03/09/2013 Rash and other nonspecific skin eruption 013 09/29/2018 Actinic keratosis 03/09/2013 03/22/2019 Actinic skin damage 03/09/2013 03/22/2019 Xerosis cutis 03/09/2013 03/22/2019 Lateral epicondylitis 08/18/2011 07/01/2015 Chronic cough 08/08/2009 08/30/2015 documented as of this encounter (statuses as of 12/18/2022) [facility] History of Past illness Narrative* Problem Noted Date Resolved Date Acute blood loss anemia 09/28/2017 09/29/19 19 Closed fracture of hip 09/28/2017 9 Trochanteric bursitis of left hip 12/07/2016 03/22/2019 Gall bladder stones 06/29/2014 10/19/2014 Gall bladder polyp 06/29/2014 10/19/2014 RUQ pain 06/29/2014 10/19/2014 Carpal tunnel syndrome 09/29/2013 9 Contact eczematous dermatitis 03/09/2013 Rash and other nonspecific skin eruption 013 09/29/2018 Actinic keratosis 03/09/2013 03/22/2019 Actinic skin damage 03/09/2013 03/22/2019 Xerosis cutis 03/09/2013 03/22/2019 Lateral epicondylitis 08/18/2011 07/01/2015 Chronic cough 08/08/2009 08/30/2015 documented as of this encounter (statuses as of 01/26/2023) [facility] of Past illness Narrative* Problem Noted Date Resolved Date Acute blood loss anemia 09/28/2017 09/29/19 19 Closed fracture of hip 09/28/2017 9 Trochanteric bursitis of left hip 12/07/2016 03/22/2019 Gall bladder stones 06/29/2014 10/19/2014 Gall bladder polyp 06/29/2014 10/19/2014 RUQ pain 06/29/2014 10/19/2014 Carpal tunnel syndrome 09/29/2013 9 Contact eczematous dermatitis 03/09/2013 Rash and other nonspecific skin eruption 013 09/29/2018 Actinic keratosis 03/09/2013 03/22/2019 Actinic skin damage 03/09/2013 03/22/2019 Xerosis cutis 03/09/2013 03/22/2019 Lateral epicondylitis 08/18/2011 07/01/2015 Chronic cough 08/08/2009 08/30/2015 documented as of this encounter (statuses as of 02/17/2023) [facility] of Past illness Narrative* Problem Noted Date Diagnosed Date Resolved Date Acute blood loss anemia 09/28/201709/20 Closed fracture of hip 09/28/201703/22 Trochanteric bursitis of left hip 12/07/2016 03/22/2019 Gall bladder stones 06/29/2014 10/19/19 15 Gall bladder polyp 06/29/2014 5 RUQ pain 06/29/2014 10/19/2014 Carpal tunnel syndrome 09/29/201303/22 Contact eczematous dermatitis 03/09/2013 03/22/2019 Rash and other nonspecific skin eruption 03/09/2013 09/29/2018 Actinic keratosis 03/09/2013 03/22/2019 Actinic skin damage 03/09/2013 03/22/20 19 Xerosis cutis 03/09/2013 03/22/2019 Lateral epicondylitis 08/18/20112014 Chronic cough 08/08/2009 08/30/2015 documented as of this encounter (statuses as of 04/15/2023) [facility] No data available for this section [facility] Diagnosis Controlled type 2 diabetes mellitus without complication, without long-term current use of insulin (HCC)- Primary Stage 3b chronic kidney disease (HCC) Chronic pain of right knee Encounter for screening mammogram for malignant neoplasm of breast Other screening mammogram [facility]* Diagnosis Encounter for screening mammogram for malignant neoplasm of breast- Primary Other screening mammogram [facility] encounter [facility]* Diagnosis Encounter for screening mammogram for malignant neoplasm of breast Other screening mammogram [facility] encounter [facility]* Diagnosis Bilateral hand pain- Primary Pain in limb documented in this encounter [facility] note* Diagnosis Bilateral hand pain Pain in limb documented [facility] this encounter [facility]* Diagnosis Essential hypertension, benign Hyperlipidemia LDL goal <100 Other and unspecified hyperlipidemia [facility] in this encounter [facility]* Diagnosis Sciatica, right side- Primary [facility] Diagnosis 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 3 chronic kidney disease, without long-term current use of insulin (HCC)- Primary Essential hypertension, benign Hyperlipidemia LDL goal <100 Other and unspecified hyperlipidemia Gastroesophageal reflux disease with esophagitis without hemorrhage Arthritis of hand Unspecified arthropathy, hand [facility] this encounter [facility]* Diagnosis Controlled type 2 diabetes mellitus without complication, without long-term current use of insulin (HCC) documented [facility]* Diagnosis Gastroesophageal reflux disease without esophagitis Esophageal reflux [facility]* Diagnosis Bilateral hand pain Pain in limb [facility] Diagnosis 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 3 chronic kidney disease, without long-term current use of insulin (HCC) [facility] Diagnosis 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 3 chronic kidney disease, without long-term current use of insulin (HCC)- Primary Essential hypertension, benign Gastroesophageal reflux disease without esophagitis Esophageal reflux Hyperlipidemia LDL goal <100 Other and unspecified hyperlipidemia Bilateral hand pain Pain in limb documented [facility] this encounter [facility]* Diagnosis Gastroesophageal reflux disease without esophagitis Esophageal reflux [facility] Diagnosis Controlled type 2 diabetes mellitus without complication, without long-term current use of insulin (HCC) documented [facility] this encounter [facility]* Diagnosis Controlled type 2 diabetes mellitus without complication, without long-term current use of insulin (HCC) [facility]* Diagnosis Bilateral hand pain Pain in limb documented [facility] this encounter [facility]* Diagnosis Chronic pain of right knee [facility] in this encounter [facility]* Diagnosis Left hip pain Pain in joint, pelvic region and thigh [facility] Diagnosis 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 3 chronic kidney disease, without long-term current use of insulin (HCC)- Primary Essential hypertension, benign Stage 3 chronic kidney disease, unspecified whether stage 3a or 3b CKD (HCC) Hyperlipidemia LDL goal <100 Other and unspecified hyperlipidemia Gastroesophageal reflux disease without esophagitis Esophageal reflux [facility] Diagnosis Essential hypertension, benign- Primary Stage 3 chronic kidney disease, unspecified whether stage 3a or 3b CKD (HCC) [facility]* Diagnosis Bilateral leg edema- Primary Edema Essential hypertension, benign Stage 3 chronic kidney disease, unspecified whether stage 3a or 3b CKD (HCC) Hyperlipidemia LDL goal <100 Other and unspecified hyperlipidemia 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 3 chronic kidney disease, without long-term current use of insulin (HCC) Dry eye Tear film insufficiency, unspecified [facility] Diagnosis Essential hypertension, benign- Primary Congestive heart failure, unspecified HF chronicity, unspecified heart failure type (HCC) documented in this encounter [facility]* Diagnosis Hospital discharge follow-up- Primary Other follow-up examination Congestive heart failure, unspecified HF chronicity, unspecified heart failure type (HCC) Elevated troponin Other abnormal blood chemistry Essential hypertension, benign Stage 3 chronic kidney disease, unspecified whether stage 3a or 3b CKD (HCC) 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 3 chronic kidney disease, without long-term current use of insulin (HCC) documented in this encounter [facility]* Diagnosis Gastroesophageal reflux disease without esophagitis Esophageal reflux [facility] Diagnosis 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 3 chronic kidney disease, without long-term current use of insulin (HCC) [facility] Diagnosis 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 3 chronic kidney disease, without long-term current use of insulin (HCC)- Primary Congestive heart failure, unspecified HF chronicity, unspecified heart failure type (HCC) Stage 3 chronic kidney disease, unspecified whether stage 3a or 3b CKD (HCC) Essential hypertension, benign Skin lesion Unspecified disorder of skin and subcutaneous tissue Screening for depression Encounter for screening examination for other mental health and behavioral disorders documented in this encounter [facility] Discharge instructions No data available for this section [facility] Progress note No data available for this section [facility] Reason for referral (narrative)* Diagnostic Procedure Only (Routine) - Closed Specialty Diagnoses / Procedures Referred By Brent t Referred To Contact XR IMAGING Diagnoses Chronic pain of right knee Procedures XR KNEE LIMITED 2V AP/LAT RIGHT RADIOLOGIC EXAMINATION KNEE 1/2 VIEWS Khari Sunshine APRN.CNP, DNP [address] [place] [address] Xr Imaging Referral ID Status Reason Start Date Expiration Date V isits Requested Visits Authorized [id number] Closed Auto-Generate d Referral 12/19/2021 01/18/2023 1 1 * Diagnostic Procedure Only (Routine) - Authorized Specialty Diagnoses / Procedures Referred By Contjacoby t Referred To Contact BR IMAGING Diagnoses Encounter for screening mammogram for malignant neoplasm of breast Procedures SYD SCREENING SCREENING MAMMOGRAPHY BI 2-VIEW BREAST INC CAD Khari Sunshine APRN.CNP, DNP [address] [place] [address] [facility] [address] [place] [address] Referral ID Status Reason Start Date Expiration Date Visits Requested Visits Authorized [id number] Authorized Auto-Generat ed Referral 02/09/2022 01/18/2023 1 1 [facility] for referral (narrative)* Diagnostic Procedure Only (Routine) - Closed Specialty Diagnoses / Procedures Referred By Contac t Referred To Contact BR IMAGING Diagnoses Encounter for screening mammogram for malignant neoplasm of breast Procedures SYD SCREENING SCREENING MAMMOGRAPHY BI 2-VIEW BREAST INC Khari Lerner APRN.BERNARDO, SHAHEEN [address] [place] [address] [facility] [address] [place] [address] Referral ID Status Reason Start Date Expiration Date V isits Requested Visits Authorized [id number] Closed Auto-Generate d Referral 02/09/2022 01/18/2023 1 1 [facility] for referral (narrative)* Diagnostic Procedure Only (Routine) - Closed Specialty Diagnoses / Procedures Referred By Contac t Referred To Contact XR IMAGING Diagnoses Bilateral hand pain Procedures XR HAND GENERAL 3V PA/LAT/OBL BILATERAL RADEX HAND MINIMUM 3 VIEWS Treva Sandoval APRN.PUBLIC RELATIONS OFFICER [address] [place] [address] Xr Imaging Referral ID Status Reason Start Date Expiration Date V isits Requested Visits Authorized [id number] Closed Auto-Generate d Referral 09/03/2022 10/03/2023 1 1 [facility] for referral (narrative)* Diagnostic Procedure Only (Routine) - Closed Specialty Diagnoses / Procedures Referred By Contac t Referred To Contact XR IMAGING Diagnoses Bilateral hand pain Procedures XR HAND GENERAL 3V PA/LAT/OBL BILATERAL RADEX HAND MINIMUM 3 VIEWS Treva Sandoval APRN.CNP [address] [place] [address] [place] [address] Referral ID Status Reason Start Date Expiration Date V isits Requested Visits Authorized [id number] Closed Auto-Generate d Referral 09/03/2022 10/03/2023 1 1 [facility] for referral (narrative)* Diagnostic Procedure Only (Routine) - Closed Specialty Diagnoses / Procedures Referred By Contac t Referred To Contact XR IMAGING Diagnoses Chronic pain of right knee Procedures XR KNEE LIMITED 2V AP/LAT RIGHT RADIOLOGIC EXAMINATION KNEE 1/2 VIEWS Khari Sunshine APRN.CNP, DNP [address] [place] [address] [place] [address] Referral ID Status Reason Start Date Expiration Date V isits Requested Visits Authorized [id number] Closed Auto-Generate d Referral 12/19/2021 01/18/2023 1 1 [facility] for referral (narrative)* Diagnostic Procedure Only (Routine) - Closed Specialty Diagnoses / Procedures Referred By Contac t Referred To Contact XR IMAGING Diagnoses Left hip pain Procedures XR HIP GENERAL 3V PELV/AP/LAT LEFT RADEX HIP UNILATERAL WITH PELVIS 2-3 VIEWS Khari Sunshine APRN.CNP, DNP [address] [place] [address] [place] [address] Referral ID Status Reason Start Date Expiration Date V isits Requested Visits Authorized [id number] Closed Auto-Generate d Referral 10/31/2021 11/30/2022 1 1 [facility] for visit Narrative* Diagnostic Procedure Only (Routine) - Closed Specialty Diagnoses / Procedures Referred By Contac t Referred To Contact BR IMAGING Diagnoses Encounter for screening mammogram for malignant neoplasm of breast Procedures SYD SCREENING SCREENING MAMMOGRAPHY BI 2-VIEW BREAST INC CAD Khari Sunshine APRN.CNP, DNP [address] [place] [address] [facility] [address] [place] [address] Referral ID Status Reason Start Date Expiration Date V isits Requested Visits Authorized [id number] Closed Auto-Generate d Referral 02/09/2022 01/18/2023 1 1 [facility] for visit Narrative* Diagnostic Procedure Only (Routine) - Closed Specialty Diagnoses / Procedures Referred By Contac t Referred To Contact XR IMAGING Diagnoses Bilateral hand pain Procedures XR HAND GENERAL 3V PA/LAT/OBL BILATERAL RADEX HAND MINIMUM 3 VIEWS Treva Sandoval, PETROLEUM SUPPLY SPECIALIST.PUBLIC RELATIONS OFFICER [address] [place] [address] [place] [address] Referral ID Status Reason Start Date Expiration Date V isits Requested Visits Authorized [id number] Closed Auto-Generate d Referral 09/03/2022 10/03/2023 1 1 [facility] for visit Narrative* Diagnostic Procedure Only (Routine) - Closed Specialty Diagnoses / Procedures Referred By Contac t Referred To Contact XR IMAGING Diagnoses Chronic pain of right knee Procedures XR KNEE LIMITED 2V AP/LAT RIGHT RADIOLOGIC EXAMINATION KNEE 1/2 VIEWS Khari Sunshine, PETROLE[employer] SUPPLY SPECIALIST.SHAHEEN CHANG [address] [place] [address] [place] [address] Referral ID Status Reason Start Date Expiration Date V isits Requested Visits Authorized [id number] Closed Auto-Generate d Referral 12/19/2021 01/18/2023 1 1 [facility] for visit Narrative* Diagnostic Procedure Only (Routine) - Closed Specialty Diagnoses / Procedures Referred By Contac t Referred To Contact XR IMAGING Diagnoses Left hip pain Procedures XR HIP GENERAL 3V PELV/AP/LAT LEFT RADEX HIP UNILATERAL WITH PELVIS 2-3 VIEWS Khari Sunshine, PETROLE[employer] SUPPLY SPECIALIST.SHAHEEN CHANG [address] [place] [id number] [place] [address] Referral ID Status Reason Start Date Expiration Date V isits Requested Visits Authorized [id number] Closed Auto-Generate d Referral 10/31/2021 11/30/2022 1 1 [facility] Summary Purpose Family History No Family History Records FoundNo Family History Records Found No data available for this section No Family History Records FoundNo Family History Records FoundNo Family History Records Found Advance Directives Documents on File Type Date Recorded 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 Advance Directive(s) 10/27/2016 8:30 AM Advance Directive(s) 10/22/2016 1:45 PM Advance Directive(s) 03/03/2011 12:00 AM Advance Directive(s) 11/05/2006 12:00 AM Documents on File Type Date Recorded 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 Advance Directive(s) 10/27/2016 8:30 AM Advance Directive(s) 10/22/2016 1:45 PM Advance Directive(s) 03/03/2011 12:00 AM Advance Directive(s) 11/05/2006 12:00 AM Documents on File Type Date Recorded 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 Advance Directive(s) 03/03/2011 Advance Directive(s) 11/05/2006 Documents on File Type Date Recorded 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 Advance Directive(s) 03/03/2011 Advance Directive(s) 11/05/2006 Reason for Referral Specialty Diagnoses / Procedures Referred By Brent aparicio Referred To Contact Nephrology Diagnoses Essential hypertension, benign Stage 3 chronic kidney disease, unspecified whether stage 3a or 3b CKD (HCC) Procedures CONSULT TO NEPHROLOGY OFFICE/OUTPATIENT NEW HIGH MDM 60 MINUTES Treva Sandoval APRN.PUBLIC RELATIONS OFFICER [address] [place] [address] Referral ID Status Reason Start Date Expiration Date Visits Requested Visits Authorized [id number] Authorized PCP Requested Referral 4 09/14/2025 1 1 Additional Source Comments INFORMATION SOURCE (unrecogn ized section and content) DATE CREATED AUTHOR 08/07/2018 [facility] ([place]) DATE CREATED AUTHOR AUTHOR'S ORGANIZ ATION 12/28/2020 [facility] DATE CREATED AUTHOR AUTHOR'S ORGANIZ ATION 10/31/2024 [facility] DATE CREATED AUTHOR AUTHOR'S ORGANIZ ATION 01/01/[address] [facility] DATE CREATED AUTHOR AUTHOR'S ORGANIZ ATION 02/23/2025 [facility] Source Comments (unrecognize d section and content) In the event this informatio n is protected by the Federal Confidentiality of Alcohol and Drug Abuse Patient Records regulations: The Federal rules restrict any use of the information to criminally investigate or prosecute any alcohol or drug abuse patient.[facility] the event this information is protected by the Federal Confidentiality of Alcohol and Drug Abuse Patient Records regulations: The Federal rules restrict any use of the information to criminally investigate or prosecute any alcohol or drug abuse patient.[facility] the event this information is protected by the Federal Confidentiality of Alcohol and Drug Abuse Patient Records regulations: The Federal rules restrict any use of the information to criminally investigate or prosecute any alcohol or drug abuse patient.[facility] the event this information is protected by the Federal Confidentiality of Alcohol and Drug Abuse Patient Records regulations: The Federal rules restrict any use of the information to criminally investigate or prosecute any alcohol or drug abuse patient.[facility] the event this information is protected by the Federal Confidentiality of Alcohol and Drug Abuse Patient Records regulations: The Federal rules restrict any use of the information to criminally investigate or prosecute any alcohol or drug abuse patient.[facility] the event this information is protected by the Federal Confidentiality of Alcohol and Drug Abuse Patient Records regulations: The Federal rules restrict any use of the information to criminally investigate or prosecute any alcohol or drug abuse patient.[facility] the event this information is protected by the Federal Confidentiality of Alcohol and Drug Abuse Patient Records regulations: The Federal rules restrict any use of the information to criminally investigate or prosecute any alcohol or drug abuse patient.[facility] the event this information is protected by the Federal Confidentiality of Alcohol and Drug Abuse Patient Records regulations: The Federal rules restrict any use of the information to criminally investigate or prosecute any alcohol or drug abuse patient.[facility] the event this information is protected by the Federal Confidentiality of Alcohol and Drug Abuse Patient Records regulations: The Federal rules restrict any use of the information to criminally investigate or prosecute any alcohol or drug abuse patient.[facility] the event this information is protected by the Federal Confidentiality of Alcohol and Drug Abuse Patient Records regulations: The Federal rules restrict any use of the information to criminally investigate or prosecute any alcohol or drug abuse patient.[facility] the event this information is protected by the Federal Confidentiality of Alcohol and Drug Abuse Patient Records regulations: The Federal rules restrict any use of the information to criminally investigate or prosecute any alcohol or drug abuse patient.[facility] the event this information is protected by the Federal Confidentiality of Alcohol and Drug Abuse Patient Records regulations: The Federal rules restrict any use of the information to criminally investigate or prosecute any alcohol or drug abuse patient.[facility] the event this information is protected by the Federal Confidentiality of Alcohol and Drug Abuse Patient Records regulations: The Federal rules restrict any use of the information to criminally investigate or prosecute any alcohol or drug abuse patient.[facility] the event this information is protected by the Federal Confidentiality of Alcohol and Drug Abuse Patient Records regulations: The Federal rules restrict any use of the information to criminally investigate or prosecute any alcohol or drug abuse patient.[facility] the event this information is protected by the Federal Confidentiality of Alcohol and Drug Abuse Patient Records regulations: The Federal rules restrict any use of the information to criminally investigate or prosecute any alcohol or drug abuse patient.[facility] the event this information is protected by the Federal Confidentiality of Alcohol and Drug Abuse Patient Records regulations: The Federal rules restrict any use of the information to criminally investigate or prosecute any alcohol or drug abuse patient.[facility] the event this information is protected by the Federal Confidentiality of Alcohol and Drug Abuse Patient Records regulations: The Federal rules restrict any use of the information to criminally investigate or prosecute any alcohol or drug abuse patient.[facility] the event this information is protected by the Federal Confidentiality of Alcohol and Drug Abuse Patient Records regulations: The Federal rules restrict any use of the information to criminally investigate or prosecute any alcohol or drug abuse patient.[facility] HospitalIn the event this information is protected by the Federal Confidentiality of Alcohol and Drug Abuse Patient Records regulations: The Federal rules restrict any use of the information to criminally investigate or prosecute any alcohol or drug abuse patient.[facility] HospitalIn the event this information is protected by the Federal Confidentiality of Alcohol and Drug Abuse Patient Records regulations: The Federal rules restrict any use of the information to criminally investigate or prosecute any alcohol or drug abuse patient.[facility] the event this information is protected by the Federal Confidentiality of Alcohol and Drug Abuse Patient Records regulations: The Federal rules restrict any use of the information to criminally investigate or prosecute any alcohol or drug abuse patient.[facility] the event this information is protected by the Federal Confidentiality of Alcohol and Drug Abuse Patient Records regulations: The Federal rules restrict any use of the information to criminally investigate or prosecute any alcohol or drug abuse patient.[facility] HospitalIn the event this information is protected by the Federal Confidentiality of Alcohol and Drug Abuse Patient Records regulations: The Federal rules restrict any use of the information to criminally investigate or prosecute any alcohol or drug abuse patient.[facility]In the event this information is protected by the Federal Confidentiality of Alcohol and Drug Abuse Patient Records regulations: The Federal rules restrict any use of the information to criminally investigate or prosecute any alcohol or drug abuse patient.[facility]In the event this information is protected by the Federal Confidentiality of Alcohol and Drug Abuse Patient Records regulations: The Federal rules restrict any use of the information to criminally investigate or prosecute any alcohol or drug abuse patient.[facility] HospitalIn the event this information is protected by the Federal Confidentiality of Alcohol and Drug Abuse Patient Records regulations: The Federal rules restrict any use of the information to criminally investigate or prosecute any alcohol or drug abuse patient.[facility]In the event this information is protected by the Federal Confidentiality of Alcohol and Drug Abuse Patient Records regulations: The Federal rules restrict any use of the information to criminally investigate or prosecute any alcohol or drug abuse patient.[facility]In the event this information is protected by the Federal Confidentiality of Alcohol and Drug Abuse Patient Records regulations: The Federal rules restrict any use of the information to criminally investigate or prosecute any alcohol or drug abuse patient.[facility]In the event this information is protected by the Federal Confidentiality of Alcohol and Drug Abuse Patient Records regulations: The Federal rules restrict any use of the information to criminally investigate or prosecute any alcohol or drug abuse patient.[facility]In the event this information is protected by the Federal Confidentiality of Alcohol and Drug Abuse Patient Records regulations: The Federal rules restrict any use of the information to criminally investigate or prosecute any alcohol or drug abuse patient.[facility]In the event this information is protected by the Federal Confidentiality of Alcohol and Drug Abuse Patient Records regulations: The Federal rules restrict any use of the information to criminally investigate or prosecute any alcohol or drug abuse patient.[facility]In the event this information is protected by the Federal Confidentiality of Alcohol and Drug Abuse Patient Records regulations: The Federal rules restrict any use of the information to criminally investigate or prosecute any alcohol or drug abuse patient.[facility]In the event this information is protected by the Federal Confidentiality of Alcohol and Drug Abuse Patient Records regulations: The Federal rules restrict any use of the information to criminally investigate or prosecute any alcohol or drug abuse patient.[facility] HospitalIn the event this information is protected by the Federal Confidentiality of Alcohol and Drug Abuse Patient Records regulations: The Federal rules restrict any use of the information to criminally investigate or prosecute any alcohol or drug abuse patient.[facility]In the event this information is protected by the Federal Confidentiality of Alcohol and Drug Abuse Patient Records regulations: The Federal rules restrict any use of the information to criminally investigate or prosecute any alcohol or drug abuse patient.[facility]In the event this information is protected by the Federal Confidentiality of Alcohol and Drug Abuse Patient Records regulations: The Federal rules restrict any use of the information to criminally investigate or prosecute any alcohol or drug abuse patient.[facility]In the event this information is protected by the Federal Confidentiality of Alcohol and Drug Abuse Patient Records regulations: The Federal rules restrict any use of the information to criminally investigate or prosecute any alcohol or drug abuse patient.[facility] HospitalIn the event this information is protected by the Federal Confidentiality of Alcohol and Drug Abuse Patient Records regulations: The Federal rules restrict any use of the information to criminally investigate or prosecute any alcohol or drug abuse patient.[facility] HospitalIn the event this information is protected by the Federal Confidentiality of Alcohol and Drug Abuse Patient Records regulations: The Federal rules restrict any use of the information to criminally investigate or prosecute any alcohol or drug abuse patient.[facility] HospitalIn the event this information is protected by the Federal Confidentiality of Alcohol and Drug Abuse Patient Records regulations: The Federal rules restrict any use of the information to criminally investigate or prosecute any alcohol or drug abuse patient.[facility] HospitalIn the event this information is protected by the Federal Confidentiality of Alcohol and Drug Abuse Patient Records regulations: The Federal rules restrict any use of the information to criminally investigate or prosecute any alcohol or drug abuse patient.[facility] HospitalIn the event this information is protected by the Federal Confidentiality of Alcohol and Drug Abuse Patient Records regulations: The Federal rules restrict any use of the information to criminally investigate or prosecute any alcohol or drug abuse patient.[facility] HospitalIn the event this information is protected by the Federal Confidentiality of Alcohol and Drug Abuse Patient Records regulations: The Federal rules restrict any use of the information to criminally investigate or prosecute any alcohol or drug abuse patient.[facility] Reason for Visit (unrecogniz ed section and content) Reason Comments Knee Pain Reason Comments Mammogram order Reason Comments Script for handicap placard Reason Comments Acute Visit follow up bilat hand s Reason Comments Results X-ray hands Reason Comments Medication Request Meloxicam Nurse Triage Call Questions on the med ication and her symptoms Reason Onset Date Comments Refill Request PER PATIENT SHE IS STILL TAKING AMARYL 1 MG TABLET ONCE DAILY NO LONGER TAKING THE 2 MG THIS WAS REDUCED BY TREVA ON 09/03/2022 PER PATIENT Refill Request 10/19/2022 Reason Comments Pain Reports started Satu rday- starts in right buttuck and radiates down back of leg Reason Comments 6 Month Exam Reason Comments Refill Request Reason Onset Date Comments Refill Request 01/25/2023 Reason Comments Rx refill; not on current med list Reason Onset Date Comments Refill Request 04/15/2023 Reason Onset Date Comments Refill Request 02/02/2024 Reason Onset Date Comments Refill Request 03/17/2024 Reason Comments Blood Pressure Reason Comments Follow Up Blood pressure Reason Comments Patient Update Reason Comments Breathing Problem Reason Comments Follow Up 4 day Hospital follo w up Reason Onset Date Comments Transition Of Care 10/12/2024 T[facility] / [facility] dc 10/08/24 Reason Onset Date Comments Refill Request 10/20/2024 Reason Comments Orders Handicap placard Reason Onset Date Comments Transition Of Care 10/26/2024 Follow up day 18 Reason Onset Date Comments Refill Request 11/16/2024 Reason Onset Date Comments Refill Request 12/18/2024 Reason Onset Date Comments Refill Request 10/09/2024 Reason Comments Medicare Wellness Exam 6 mo Care Teams (unrecognized sec tion and content) Systems Security Consultant Relationship Specialty Start Date End Date Khari Sunshine APRN.CNP, DNP [address] [place] [address] PCP - General Family Practice 01/28/21 Systems Security Consultant Relationship Specialty Start Date End Date Khari Sunshine APRN.CNP, DNP [address] [place] [address] PCP - General Family Practice 01/28/21 Systems Security Consultant Relationship Specialty Start Date End Date Khari Sunshine APRN.CNP, DNP [address] [place] [address] PCP - General Family Practice 01/28/21 Systems Security Consultant Relationship Specialty Start Date End Date Khari Sunshine APRN.BERNARDO, DNP [address] [place] [address] PCP - General Family Practice 01/28/21 Systems Security Consultant Relationship Specialty Start Date End Date Khari Sunshine APRN.BERNARDO, DNP [address] [place] [address] PCP - General Family Practice 01/28/21 Systems Security Consultant Relationship Specialty Start Date End Date Allie Stanton MD [address] [place] [address] PCP - General Family Medicine 05/28/22 Systems Security Consultant Relationship Specialty Start Date End Date Allie Stanton MD [address] [place] [address] PCP - General Family Medicine 05/28/22 Systems Security Consultant Relationship Specialty Start Date End Date Allie Stanton MD [address] [place] [address] PCP - General Family Medicine 05/28/22 Systems Security Consultant Relationship Specialty Start Date End Date Allie Stanton MD [address] [place] [address] PCP - General Family Medicine 05/28/22 Systems Security Consultant Relationship Specialty Start Date End Date Allie Stanton MD [address] [place] [address] PCP - General Family Medicine 05/28/22 Systems Security Consultant Relationship Specialty Start Date End Date Allie Stanton MD [address] [place] [address] PCP - General Family Medicine 05/28/22 Systems Security Consultant Relationship Specialty Start Date End Date Allie Stanton MD [address] [place] [address] PCP - General Family Medicine 05/28/22 Systems Security Consultant Relationship Specialty Start Date End Date Allie Stanton MD [address] [place] [address] PCP - General Family Medicine 05/28/22 Systems Security Consultant Relationship Specialty Start Date End Date Allie Stanton MD [address] [place] [address] PCP - General Family Medicine 05/28/22 Systems Security Consultant Relationship Specialty Start Date End Date Allie Stanton MD [address] [place] [address] PCP - General Family Medicine 05/28/22 Systems Security Consultant Relationship Specialty Start Date End Date Allie Stanton MD [address] [place] [address] PCP - General Family Medicine 05/28/22 Systems Security Consultant Relationship Specialty Start Date End Date Khari Sunshine APRN.SHAHEEN CHANG [address] [place] [address] PCP - General Family Medicine 01/28/21 05/27/22 Systems Security Consultant Relationship Specialty Start Date End Date Khari Sunshine APRN.SHAHEEN CHANG [address] [place] [address] PCP - General Family Medicine 01/28/21 05/27/22 Systems Security Consultant Relationship Specialty Start Date End Date Allie Stanton MD [address] [place] [address] PCP - General Family Medicine 05/28/22 Systems Security Consultant Relationship Specialty Start Date End Date Allie Stanton MD [address] [place] [address] PCP - General Family Medicine 05/28/22 Treva Sandoval APRN.PUBLIC RELATIONS OFFICER [address] [place] [address] Orthopedic Shoe Maker Family Medicine 08/27/24 Systems Security Consultant Relationship Specialty Start Date End Date Allie Stanton MD [address] [place] [address] PCP - General Family Medicine 05/28/22 Treva Sandoval APRN.PUBLIC RELATIONS OFFICER [address] [place] [address] Orthopedic Shoe Maker Family Medicine 08/27/24 Imtiaz Hodge APRN.PUBLIC RELATIONS OFFICER [address] [place] [address] Orthopedic Shoe Maker Family Medicine 09/05/24 Systems Security Consultant Relationship Specialty Start Date End Date Allie Stanton MD [address] [place] [address] PCP - General Family Medicine 05/28/22 Treva Sandoval APRN.PUBLIC RELATIONS OFFICER [address] [place] [address] Orthopedic Shoe Maker Family Medicine 08/27/24 Imtiaz Hodge APRN.PUBLIC RELATIONS OFFICER [address] [place] [address] Orthopedic Shoe Maker Family Medicine 09/05/24 Systems Security Consultant Relationship Specialty Start Date End Date Allie Stanton MD [address] [place] [address] PCP - General Family Medicine 05/28/22 Treva Sandoval PETROLEUM SUPPLY SPECIALIST.PUBLIC RELATIONS OFFICER [address] [place] [address] Orthopedic Shoe Maker Family Medicine 08/27/24 Imtiaz Hodge PETROLEUM SUPPLY SPECIALIST.PUBLIC RELATIONS OFFICER [address] [place] [address] [facility] Systems Security Consultant Relationship Specialty Start Date End Date Allie Stanton MD [address] [place] [address] PCP - General Family Medicine 05/28/22 Treva Sandoval, PETROLEUM SUPPLY SPECIALIST.PUBLIC RELATIONS OFFICER [address] [place] [address] Orthopedic Shoe Maker Family Medicine 08/27/24 Imtiaz Hodge PETROLEUM SUPPLY SPECIALIST.PUBLIC RELATIONS OFFICER [address] [place] [address] Orthopedic Shoe Maker Family Medicine 09/05/24 Systems Security Consultant Relationship Specialty Start Date End Date Allie Stanton MD [address] [place] [address] PCP - General Family Medicine 05/28/22 Treva Sandoval PETROLEUM SUPPLY SPECIALIST.PUBLIC RELATIONS OFFICER [address] [place] [address] Orthopedic Shoe Maker Family Medicine 08/27/24 Imtiaz Hodge APRN.PUBLIC RELATIONS OFFICER [address] [place] [address] Orthopedic Shoe Maker Family [facility] 09/05/24 Systems Security Consultant Relationship Specialty Start Date End Date Allie Stanton MD [address] [place] [address] PCP - General Family Medicine 05/28/22 Treva Sandoval APRN.PUBLIC RELATIONS OFFICER [address] [place] [address] Orthopedic Shoe Maker Family Medicine 08/27/24 Imtiaz Hodge APRN.PUBLIC RELATIONS OFFICER [address] [place] [address] Orthopedic Shoe Maker Family [facility] 09/05/24 Chinyere Pabon, YUDI [address] [place] [address] Primary Care Stock Or Delivery Clerk 10/12/24 Systems Security Consultant Relationship Specialty Start Date End Date Allie Stanton MD [address] [place] [address] PCP - General Family Medicine 05/28/22 Treva Sandoval APRN.PUBLIC RELATIONS OFFICER [address] [place] [address] Orthopedic Shoe Maker Family Medicine 08/27/24 Imtiaz Hodge APRN.PUBLIC RELATIONS OFFICER [address] [place] [address] Orthopedic Shoe Maker Family [facility] 09/05/24 Chinyere Pabon, YUDI [address] [place], [place] [id number] Primary Care Stock Or Delivery Clerk 10/12/24 Systems Security Consultant Relationship Specialty Start Date End Date Allie Stanton MD [address] [place] [address] PCP - General Family Medicine 05/28/22 Treva Sandoval APRN.PUBLIC RELATIONS OFFICER [address] [place] [address] Orthopedic Shoe Maker Family Medicine 08/27/24 Imtiaz Hodge APRN.PUBLIC RELATIONS OFFICER [address] [place] [address] Orthopedic Shoe Maker Family Medicine 09/05/24 Chinyere Pabno, YUDI [address] [place] [address] Primary Care Stock Or Delivery Clerk 10/12/24 Systems Security Consultant Relationship Specialty Start Date End Date Allie Stanton MD [address] [place] [address] PCP - General Family Medicine 05/28/22 Treva Sandoval PETROLEUM SUPPLY SPECIALIST.PUBLIC RELATIONS OFFICER [address] [place] [address] Orthopedic Shoe Maker Family Medicine 08/27/24 Imtiaz Hodge PETROLEUM SUPPLY SPECIALIST.PUBLIC RELATIONS OFFICER [address] [place] [address] Orthopedic Shoe Maker Family Medicine 09/05/24 Chinyere Pabon, YUDI [address] [place] [address] Primary Care Stock Or Delivery Clerk 10/12/24 Systems Security Consultant Relationship Specialty Start Date End Date Allie Stanton MD [address] [place] [address] PCP - General Family Medicine 05/28/22 Treva Sandoval APRN.PUBLIC RELATIONS OFFICER [address] [place] [address] Orthopedic Shoe Maker Family Medicine 08/27/24 Imtiaz Hodge APRN.PUBLIC RELATIONS OFFICER [address] [place] [address] Orthopedic Shoe Maker Family Medicine 09/05/24 Systems Security Consultant Relationship Specialty Start Date End Date Allie Stanton MD [address] [place] [address] PCP - General Family Medicine 05/28/22 Treva Sandoval APRN.PUBLIC RELATIONS OFFICER [address] [place] [address] Orthopedic Shoe Maker Family Medicine 08/27/24 Imtiaz Hodge APRN.PUBLIC RELATIONS OFFICER [address] [place] [address] [facility] [place] Systems Security Consultant Relationship Specialty Start Date End Date Allie Stanton MD [address] [place] [address] PCP - General Family Medicine 05/28/22 Treva Sandoval APRN.PUBLIC RELATIONS OFFICER [address] [place] [address] Orthopedic Shoe Maker Family Medicine 08/27/24 Imtiaz Hodge APRN.PUBLIC RELATIONS OFFICER [address] [place] [address] Orthopedic Shoe Maker Family Medicine 09/05/24 Systems Security Consultant Relationship Specialty Start Date End Date Allie Stanton MD [address] [place] [address] PCP - General Family Medicine 05/28/22 Treva Sandoval APRN.PUBLIC RELATIONS OFFICER [address] [place] [address] Orthopedic Shoe Maker Family Medicine 08/27/24 Imtiaz Hodge APRN.PUBLIC RELATIONS OFFICER [address] [place] [address] Orthopedic Shoe Maker Family Medicine 09/05/24 Chinyere Pabon RN [address] [place] [address] Primary Care Stock Or Delivery Clerk 10/12/24 11/02/24 Systems Security Consultant Relationship Specialty Start Date End Date Allie Stanton MD [address] [place] [address] PCP - General Family Medicine 05/28/22 Treva Sandoval APRN.PUBLIC RELATIONS OFFICER [address] [place] [address] Orthopedic Shoe Maker Family Medicine 08/27/24 Imtiaz Hodge PETROLEUM SUPPLY SPECIALIST.PUBLIC RELATIONS OFFICER [address] [place] [address] Orthopedic Shoe Maker Family Medicine 09/05/24 Systems Security Consultant Relationship Specialty Start Date End Date Allie Stanton MD [address] [place] [address] PCP - General Family Medicine 05/28/22 Imtiaz Hodge PETROLEUM SUPPLY SPECIALIST.PUBLIC RELATIONS OFFICER [address] [place] [address] Orthopedic Shoe Maker Family Medicine 09/05/24 Cathy Dugan, computer security specialistWindow Draper Pulmonary Disease 01/25/25 FOR RECORDS PERTAINING TO PATIENTS WHO ARE OR HAVE BEEN ENROLLED IN A CHEMICAL DEPENDENCY/SUBSTANCEABUSE PROGRAM, SOME INFORMATION MAY BE OMITTED. This clinical summary was aggregated from multiple sources. Caution should be exercised in using it in the provision of clinical care. This summary normalizes information from multiple sources, and as a consequence, information in this document may materially change the coding, format and clinical context of patient data. In addition, data may be omitted in some cases. CLINICAL DECISIONS SHOULD BE BASED ON THE PRIMARY CLINICAL RECORDS. [employer] [facility]. provides no warranty or guarantee of the accuracy or completeness of information in this document.
[2025-03-03] MEDS: traMADol 50 MG Tablet PO (07:31)
[2025-03-03 07:35] LABS: Bacteria 0 SEEN /hpf (None Seen); Mucous, Urine 0 SEEN /hpf (<or=2+); Red Blood Cells-Urine 0 SEEN /hpf (0-5); Squamous Epithelial Cells - UA 0 SEEN /hpf (5-10); White Blood Cells 0 SEEN /hpf (0-5)
[2025-03-03 07:40] LABS: Color, Urine Yellow (Yellow); Glucose, Dipstick 250 mg/dl (Normal); Ketone-Dipstick Negative (Negative); Leukocyte Esterase-Dipstick Negative /ul (Negative); Nitrite-Dipstick Negative (Negative); Occult Blood-Urine 10 /ul (Negative); Protein-Dipstick 30 mg/dl (Negative); Specific Gravity, Urine 1.005 (1.002-1.030); Urine Bilirubin Dipstick Negative (Negative); Urine Clarity Clear (Clear); Urine Urobilinogen Normal (Normal)
[2025-03-03 08:34] VITALS: BP 172/73; PULSE 88; RESP 18; TEMP 36.7; O2SAT 96
[2025-03-03] MEDS: Orphenadrine 100 MG Tablet PO (08:39)
== END 2025-03-03 08:41 | disposition home or self-care (01) ==
PROVIDERS: Emergency Provider Emergency Medicine; PCP Family Medicine; Visit Provider Emergency Medicine
DX: M51.16 Intervertebral disc disorders with radiculopathy, lumbar region (principal); I13.0 Hypertensive heart and chronic kidney disease with heart failure and stage 1 through stage 4 chronic kidney disease, or unspecified chronic kidney disease; I50.32 Chronic diastolic (congestive) heart failure; E11.22 Type 2 diabetes mellitus with diabetic chronic kidney disease; N18.32 Chronic kidney disease, stage 3b; M54.50 Low back pain, unspecified; E78.00 Pure hypercholesterolemia, unspecified; R35.0 Frequency of micturition; I25.2 Old myocardial infarction; Z79.82 Long term (current) use of aspirin; Z79.02 Long term (current) use of antithrombotics/antiplatelets; Z79.84 Long term (current) use of oral hypoglycemic drugs; Z79.899 Other long term (current) drug therapy
CPT/HCPCS: 72131; 81001; 99284

== ENCOUNTER 2025-03-07 09:50 | Observation (INO) | payer MEDICARE, SELFPAY ==
[2025-03-07 09:51] VITALS: BP 127/85; PULSE 66; RESP 14; TEMP 36.2; O2SAT 98
[2025-03-07 09:52] VITALS: BMI 28.7
--- NOTE | 2025-03-07 10:18 | ED.VIS.BACK ---
HPI History of Present Illness Chief Complaint: Back Detail of Chief Complaint: Back pain Informant: patient Narrative Narrative: Patient presents with back pain that started more than 2 weeks ago. She denies injury. She was seen in the emergency department 5 days ago and had a CT scan of her back and some basic labs and a urine. CT showed some degenerative changes especially at L4-5. Patient was treated with prednisone as well as Norflex as well as tramadol and Tylenol and not getting any relief. Today she could hardly get up and could not ambulate because of the pain. She denies fevers or chills or sweats. She denies loss of bowel or bladder function. At times she can describes pain rating down her right leg with numbness in her right foot. At rest her pain is a 5 out of 10 but with any movement or any attempted ambulation her pain is a 10 out of 10 [facility] Medical History Chronic kidney disease, stage 3b Acute diastolic (congestive) heart failure NSTEMI (non-ST elevated myocardial infarction) Anemia Diabetes Non-smoker Skin cancer Dehydration GERD (gastroesophageal reflux disease) Acute blood loss anemia Closed left hip fracture HTN (hypertension) Hypercholesteremia Type II diabetes mellitus Home Medications ?Medication ?Instructions ?Recorded ?Last Taken ?Type multivitamin with folic acid 400 1 tab PO DAILYCM vitamin #30 tabs 02/11/15 03/02/25 Rx mcg tablet blood sugar diagnostic (True 10/04/24 Unknown History Metrix Glucose Test Strip) aspirin 81 mg tablet,delayed 81 mg PO BREAKFAST 30 days #30 tabs 10/08/24 03/02/25 Rx release carvedilol 3.125 mg tablet 3.125 mg PO BID 30 days #180 tabs 10/12/24 03/02/25 Rx clopidogrel 75 mg tablet 75 mg PO DAILY 30 days #90 tabs 10/12/24 03/02/25 Rx empagliflozin 10 mg tablet 10 mg PO DAILY 30 days #90 tabs 10/12/24 03/02/25 Rx (Jardiance) nitroglycerin 0.4 mg sublingual 0.4 mg sublingual Q5-15M PRN chest 01/01/25 Unknown Rx tablet pain #20 tabs omeprazole 20 mg capsule,delayed 20 mg PO QODAY 01/01/25 03/02/25 History release furosemide 20 mg tablet 20 mg PO DAILY 03/03/25 03/02/25 History isosorbide mononitrate 30 mg 30 mg PO DAILY awaiting mail in 03/03/25 03/02/25 History tablet,extended release 24 hr RX, pt out of med losartan 100 mg tablet 100 mg PO DAILY 03/03/25 03/02/25 History amlodipine 5 mg tablet 5 mg PO DAILY 03/07/25 03/06/25 History atorvastatin 80 mg tablet 80 mg PO QHS cholesterol 03/07/25 03/06/25 History orphenadrine citrate 100 mg 100 mg PO BID 03/07/25 03/06/25 History tablet,extended release prednisone 10 mg tablet See Taper PO DAILY 03/07/25 03/07/25 History Allergy/AdvReac Type Severity Reaction Status Date / Time metformin Allergy Hives Verified 03/07/25 09:51 morphine AdvReac Nausea Verified 03/07/25 09:51 oxycodone (Oxycodone) AdvReac Nausea Verified 03/07/25 09:51 Family History Sister Breast cancer Colon cancer Diabetes Uncle Heart disease Brother Kidney disease Surgical History History of appendectomy History of cholecystectomy History of hip replacement History of shoulder replacement S/P ORIF (open reduction internal fixation) fracture Social History household members: none current occupational status: retired Smoking Status: Never smoker alcohol intake: never substance use type: does not use ROS ROS ED Review of Systems ROS Unobtainable: other Constitutional Constitutional ED: Reports lethargy; Denies chills, fever(s), sweats or weight loss Eyes Eyes: Denies blurry vision, change in vision or diplopia ENT ENT ED: Denies rhinorrhea or sore throat Cardiovascular Cardiovascular: Denies chest pain, orthopnea or racing heartbeat Respiratory/Chest Respiratory/Chest: Denies cough, dyspnea, dyspnea on exertion, orthopnea or sputum Gastrointestinal Gastrointestinal: Denies abdominal pain, diarrhea, nausea or vomiting Genitourinary Genitourinary ED: Denies dysuria, hematuria or urinary frequency Musculoskeletal Musculoskeletal: Reports back pain; Denies arthralgias, myalgias or neck pain Integumentary Denies abscess, Abrasions or rash Neurologic Neurologic: Denies headache(s) or weakness Psychiatric Psychiatric: Denies anxiety, depression or suicidal thoughts Endocrine Endocrinology: Denies polydipsia, polyphagia or polyuria Hematologic/Lymphatic Hematologic/Lymphatic: Denies easy bleeding, easy bruising or lymphadenopathy Allergic/Immunologic Allergic/Immunologic ED: Denies mouth swelling, tongue swelling or urticaria EXAM Physical Exam Const Vital Signs: 03/07/25 09:51 Temperature 97.2 F L Temperature Source Temporal Pulse Rate 66 Respiratory Rate 14 Blood Pressure 127/85 H Blood Pressure Mean 99 Pulse Ox 98 Oxygen Delivery Method Room Air Positive well nourished and well developed General Appearance ED: well developed and NAD HEENT Reports TM's clear and moist mucous membranes normocephalic and atraumatic; Negative for trauma or tenderness Tympanic Membrane ED: Yes TM's clear Eyes PERRL and EOMs intact bilaterally General Eye ED: Negative for pale conjunctiva or scleral icterus Neck no lymphadenopathy, supple and no JVD General: Negative for tenderness Chest Wall inspection of chest normal and palpation of chest normal Chest: Negative for tenderness Resp normal respiratory effort and clear to auscultation bilaterally Effort and Inspection: Negative for respiratory distress or pain with movement Auscultation: Negative for rhonchi, wheezes or diminished lung sounds Cardio regular rate, regular rhythm, S1 normal heart sound, S2 normal heart sound and no murmurs Peripheral Pulses: pulses 2+ throughout GI normal to inspection, nondistended, normoactive bowel sounds, soft to palpation, non-tender, non-distended and no masses Back/Spine no CVA tenderness; Negative for no thoracic nor lumbar tenderness Back/Spine Narrative: Mild diffuse tenderness over the lumbar spine and lumbar paraspinal musculature bilaterally. No erythema or warmth noted. No skin infections noted. Positive straight leg raises while supine with right and left lower extremities at about 30 degrees. Deep tendon reflexes plus 1 out of 4 bilaterally at the patella and Achilles. She has normal L5 extension. Normal sensation to light touch. Extremity normal to inspection General Extremety ED: Negative for edema General Extremity: Negative for edema Neuro oriented x3, CN's II-XII intact bilaterally, no sensory deficits noted and gait normal Sensorium / Orientation: awake, alert, oriented to person, oriented to place and oriented to time Motor Exam: strength 5/5 throughout and strength abnormal Psych mental status grossly normal Skin no rashes or lesions noted and no wounds MDM MDM MDM Narrative Medical decision making narrative: Patient presents with ongoing back pain x 2 weeks. Severe pain with movement and ambulation. No acute signs or symptoms of cauda equina on exam. Suspect possibly radiculopathy. Patient's had a CT scan that showed some degenerative changes especially L4-5. Patient will be medicated with half a milligram of Dilaudid IV and some Zofran. Will obtain basic labs. Patient will require admission for pain control and possibly further imaging such as MRI to evaluate further. Lab Data Attestation: I reviewed the patient's lab results. Labs: Laboratory Results - last 24 hr 03/07/25 10:35 WBC 11.3 H RBC 3.48 L Hgb 10.2 L Hct 31.0 L MCV 89.1 MCH 29.3 MCHC 32.9 RDW Std Deviation 42.3 RDW Coeff of Najma 13.0 Plt Count 291 MPV 8.9 Immature Gran % (Auto) 0.600 Neut % (Auto) 86.6 H Lymph % (Auto) 6.9 L Vernon % (Auto) 5.2 Eos % (Auto) 0.3 Baso % (Auto) 0.4 Absolute Neuts (auto) 9.8 H Absolute Lymphs (auto) 0.78 L Nucleated RBC % 0 Discharge Plan Triage Chief Complaint: Back ED Provider: Valeria Henry Dx/Rx/DC Orders Clinical Impression: Back pain, Difficulty in walking, Acute lumbar radiculopathy Prescriptions: No Action carvedilol 3.125 mg tablet 3.125 mg PO BID 30 Days Qty: 180 3RF Jardiance 10 mg tablet 10 mg PO DAILY 30 Days Qty: 90 3RF clopidogrel 75 mg tablet 75 mg PO DAILY 30 Days Qty: 90 3RF Rx Instructions: Discontinue if platelet count drops less than 50,000 or hemoglobin less than 8 g% omeprazole 20 mg capsule,delayed release(DR/EC) 20 mg PO QODAY nitroglycerin 0.4 mg tablet, sublingual 0.4 mg sublingual Q5-15M PRN (Reason: chest pain) Qty: 20 3RF Rx Instructions: do not exceed 3 doses per episode multivitamin with folic acid 1 TABLET tablet 1 tab PO DAILYCM Qty: 30 0RF Patient Comments: supplement (DME) True Metrix Glucose Test Strip Strip MISCELLANEOUS DAILY aspirin 81 mg Tablet,Delayed Release (Dr/Ec) 81 mg PO BREAKFAST 30 Days Qty: 30 4RF furosemide 20 mg tablet 20 mg PO DAILY isosorbide mononitrate 30 mg tablet extended release 24 hr 30 mg PO DAILY losartan 100 mg tablet 100 mg PO DAILY atorvastatin 80 mg tablet 80 mg PO QHS amlodipine 5 mg tablet 5 mg PO DAILY prednisone 10 mg tablet See Taper PO DAILY Taper: Prednisone Taper 40 mg WITH BREAKFAST for 5 Days 20 mg WITH BREAKFAST for 5 Days 10 mg WITH BREAKFAST for 5 Days Rx Instructions: SEE TAPER orphenadrine citrate 100 mg tablet extended release 100 mg PO BID Primary Care Provider: Jose Alberto Stanton Referrals: Jose Alberto Stanton MD [Primary Care Provider] - Print Language: Lao Disposition Disposition: Acute Care Hospital [facility]
[2025-03-07] MEDS: HYDROmorphone 0.5 MG/0.5 ML SYRINGE IV (10:50)
[2025-03-07] MEDS: Ondansetron 4 MG/2 ML Vial IV (10:50)
[2025-03-07 10:52] LABS: Absolute Lymphocyte Count 0.78 X10^3/uL (0.83-4.51); Absolute Neutrophil Count 9.8 X10^3/uL (2.0-7.7); Basophil# 0.04 X10^3/uL; Basophil% 0.4 % (0-1); Eosinophil# 0.03 X10^3/uL; Eosinophils% 0.3 % (0-5); Hemoglobin 10.2 g/dL (12.0-15.0); Lymphocyte # 0.78 X10^3/ul (0.83-4.51); Lymphocyte % 6.9 % (19-41); Mean Corp Hgb Conc 32.9 g/dL (32-36); Mean Corpuscular Hgb 29.3 pg (27.0-32.0); Mean Corpuscular Volume 89.1 fL (81-99); Mean Platelet Vol. 8.9 fl (6.2-12.0); Monocyte# 0.59 X10^3/uL; Monocyte% 5.2 % (0-10); NRBC Flagged by Analyzer 0 % (0-5); Neutrophil # 9.75 X10^3/uL (2.7-7.7); Neutrophil % 86.6 % (47-70); Platelet Count 291 K/mm3 (150-450); RBC Distribution Width SD 42.3 fl (35.1-43.9); Red Blood Count 3.48 M/mm3 (4.2-5.4); White Blood Count 11.3 K/mm3 (4.4-11.0)
[2025-03-07 11:11] LABS: Anion Gap 13 (5-15); BUN 36 mg/dL (4-19); BUN/Creat Ratio 27.1 RATIO (10-20); Calcium,Total 9.2 mg/dL (7.6-11.0); Carbon Dioxide 20.3 mmol/L (21.0-32.0); Chloride 102 mmol/L (98-108); Creatinine, Serum 1.33 mg/dL (0.70-1.20); EST Glomerular Filtration Rate 38 (>60); Glucose 207 mg/dL (70-99); Potassium 4.4 mmol/L (3.3-5.1); Sodium Level 135 mmol/L (133-145)
[2025-03-07 11:26] VITALS: BP 125/88; PULSE 61; RESP 14; TEMP 36.6; O2SAT 99
--- NOTE | 2025-03-07 12:07 | CASEMGMT ---
Care Management Face to Face with patient for initial transition planning/care coordination assessment in the ED.? This ticket writer introduced self and role at [facility]. Patient alert and oriented. Patient willing to participate in assessment and is able to answer all questions appropriately.? Care providers, pharmacy, and demographics verified. Admitting Diagnosis: ?Back Pain Other diagnosis history: ??Chronic kidney disease, CHF, anemia, diabetes, BERD, HTN PCP: ?Mohamud Specialists: ?Rgeina, Cook Pressure Preferred [facility]acy: [facility] Insurance: ?[employer] Prescription Benefit: Yes Living Will/HPOA:? Completed, daughter is agent LNOK: ?daughter Living Arrangements: ?Lives with daughter in a two story home, patient lives on the first floor.? Has been independent with ADLs until back pain started, now requiring assistance.? Transportation: ?Patient drives DME: ?cane, walker, bedside commode, shower chair, glucometer HHC: ?none SNF/Rehab: ?none Community Resources: ?none Behavioral Health History: none Patient goals: Patients discharge plans are uncertain, if needing rehab prefers TCU. Patient denies any further needs or concerns at this time. Disposition Plan: admission to acute; RN CM/SW to follow for discharge planning needs that may arise. Sophia Gary, UMBRELLA TIPPER, NIGHT WORKER
--- NOTE | 2025-03-07 12:33 | MRI_ITS ---
PROCEDURE: SPINE LUMBAR (ROUTINE) 03/07/2025 REASON FOR EXAM: WORSENING BACK PAIN LAST 2 WEEKS AFTER FALL TECHNIQUE: SPINE LUMBAR (ROUTINE) FINDINGS: Normal lumbar vertebral body height. Grade 1 degenerative subluxation of L4 upon L5. Normal conus. L1-L2 unremarkable. At L2-3, mild canal narrowing from slight concentric annular bulging and facet arthrosis. At L3-4 mild-moderate spinal stenosis is present secondary to the same factors. At L4-5, moderate circumferential spinal stenosis from facet arthrosis, ligamentous hypertrophy and broad-based disc bulging. Right foraminal protrusion compresses the right L4 nerve. Modic type 1 changes are present at L4-5. At L5-S1, mild canal narrowing from annular bulge. Asymmetric moderate left L5 foraminal narrowing. Bulging disc abuts the undersurface of the L5 nerve MRI/Spine Lumbar (Routine) IMPRESSION: 1. Moderate spinal stenosis at L4-5 with right L4 nerve compression. 2. [id number] canal narrowing at L3-4. 3. Asymmetric left L5 foraminal narrowing with bulging disc abutting the nerve within the neural foramen Reading [facility]
[2025-03-07 13:35] VITALS: BMI 27.4
[2025-03-07] MEDS: Acetaminophen 500 MG Tablet 1000 MG PO ×2 (13:49→22:58)
[2025-03-07 14:00] VITALS: BP 145/60; PULSE 66; RESP 18; TEMP 36.3; O2SAT 100
[2025-03-07 14:33] LABS: Bedside Glucose 218 mg/dL (74-106)
[2025-03-07 16:45] VITALS: BP 134/58; PULSE 62; RESP 18; TEMP 36.7; O2SAT 95
--- NOTE | 2025-03-07 20:46 | PCM.HP.STD ---
HPI - General General Date of Admission: 03/07/25 HPI Narrative MARIAM DUEÑAS, is a 89 F who presents to the hospital with acute on subacute back pain. She says it was going down her legs but now its much improved though she still has significant pain with ambulation. She denies any significant trauma prior to this happening she said that she was getting up and trying to move when she noticed the pain in her back. She initially noticed pain a couple weeks ago but it is steadily gotten worse and then on 03/02/2025 she was trying to move and twisted and had a much more significant and worse pain. The pain would go down her right leg. Her straight leg raises negative though she does have some pain when you are lowering her leg indicating more of a low back musculoskeletal issue versus an actual nerve compression. No fevers or chills. She had presented initially to the ER on 03/03/2025 CT demonstrated degenerative disc disease but nothing acute or significant. No loss of bowel or bladder function either on her initial visit or on this visit. FOR[facility]LY [facility] Medical History Chronic kidney disease, stage 3b Acute diastolic (congestive) heart failure NSTEMI (non-ST elevated myocardial infarction) Anemia Diabetes Non-smoker Skin cancer Dehydration GERD (gastroesophageal reflux disease) Acute blood loss anemia Closed left hip fracture HTN (hypertension) Hypercholesteremia Type II diabetes mellitus Home Medications ?Medication ?Instructions ?Recorded ?Last Taken ?Type multivitamin with folic acid 400 1 tab PO DAILYCM vitamin #30 tabs 02/11/15 03/06/25 Rx mcg tablet blood sugar diagnostic (True 10/04/24 Unknown History Metrix Glucose Test Strip) aspirin 81 mg tablet,delayed 81 mg PO BREAKFAST 30 days #30 tabs 10/08/24 03/06/25 Rx release carvedilol 3.125 mg tablet 3.125 mg PO BID 30 days #180 tabs 10/12/24 03/06/25 Rx clopidogrel 75 mg tablet 75 mg PO DAILY 30 days #90 tabs 10/12/24 03/06/25 Rx empagliflozin 10 mg tablet 10 mg PO DAILY 30 days #90 tabs 10/12/24 03/06/25 Rx (Jardiance) nitroglycerin 0.4 mg sublingual 0.4 mg sublingual Q5-15M PRN chest 01/01/25 Unknown Rx tablet pain #20 tabs omeprazole 20 mg capsule,delayed 20 mg PO QODAY 01/01/25 03/06/25 History release furosemide 20 mg tablet 20 mg PO DAILY 03/03/25 03/06/25 History isosorbide mononitrate 30 mg 30 mg PO DAILY 03/03/25 03/06/25 History tablet,extended release 24 hr losartan 100 mg tablet 100 mg PO DAILY 03/03/25 03/06/25 History amlodipine 5 mg tablet 5 mg PO DAILY 03/07/25 03/06/25 History atorvastatin 80 mg tablet 80 mg PO QHS cholesterol 03/07/25 03/06/25 History orphenadrine citrate 100 mg 100 mg PO BID 03/07/25 03/06/25 History tablet,extended release prednisone 10 mg tablet See Taper PO DAILY 03/07/25 03/07/25 History Allergy/AdvReac Type Severity Reaction Status Date / Time metformin Allergy Hives Verified 03/07/25 09:51 morphine AdvReac Nausea Verified 03/07/25 09:51 oxycodone (Oxycodone) AdvReac Nausea Verified 03/07/25 09:51 Family History Sister Breast cancer Colon cancer Diabetes Uncle Heart disease Brother Kidney disease Surgical History History of appendectomy History of cholecystectomy History of hip replacement History of shoulder replacement S/P ORIF (open reduction internal fixation) fracture Social History household members: none current occupational status: retired Smoking Status: Never smoker alcohol intake: never substance use type: does not use ROS Constitutional Constitutional: Denies chills, fatigue, fever(s) or malaise Eyes Eyes: Denies blurry vision ENT HEENT: Denies headache(s) or nasal discharge Cardiovascular Cardiovascular: Denies chest pain, dyspnea on exertion or syncope Respiratory/Chest Respiratory/Chest: Denies cough, shortness of breath at rest or shortness of breath with exertion Gastrointestinal Gastrointestinal: Denies constipation, diarrhea, nausea or vomiting Genitourinary Genitourinary: Denies dysuria Musculoskeletal Musculoskeletal: Reports back pain Neurologic Neurologic: Denies focal weakness, numbness or tremor(s) Psychiatric Psychiatric: Denies anxiety or depression Vital Signs Vital Signs Vital Signs: 03/07/25 09:51 03/07/25 11:26 03/07/25 14:00 Temperature 97.2 F L 97.8 F 97.4 F L Temperature Source Temporal Temporal Pulse Rate 66 61 66 Respiratory Rate 14 14 18 Blood Pressure 127/85 H 125/88 H 145/60 H Blood Pressure Mean 99 100 88 Blood Pressure Source Monitor Blood Pressure Position Semi-Fowlers Blood Pressure Location Left Arm Pulse Ox 98 99 100 Oxygen Delivery Method Room Air Room Air 03/07/25 16:45 Temperature 98.1 F Temperature Source Temporal Pulse Rate 62 Respiratory Rate 18 Blood Pressure 134/58 H Blood Pressure Mean 83 Blood Pressure Source Monitor Blood Pressure Position Semi-Fowlers Blood Pressure Location Left Arm Pulse Ox 95 Oxygen Delivery Method Room Air Weight Weight: 160 lb 0.889 oz Body Mass Index (BMI) 27.4 Physical Exam Narrative General: Alert, Oriented x3, Cooperative, No apparent distress HEENT: Atraumatic, PERRLA, EOMI, Normocephalic, hard of hearing Oral: Moist Mucosa Neck: Supple, No JVD Lungs: Diminished, Normal air movement, No rhonchi, No wheeze, No rales Cardiovascular: Regular rate, Regular Rhythm, Normal S1, Normal S2, No murmurs Abdomen: Soft, Non Tender, Non-Distended, No Hepato-splenomegaly Extremities: No edema, Capillary Refill Less than 3 Seconds Skin: No rashes, No breakdown Musculoskeletal: Mild tenderness palpation of her lumbar region, straight leg raise is negative though it hurts when you are lowering the leg Neurological: No focal neurological deficits, moves all extremities, Sensory exam intact to light touch and pain Psych/Mental Status: Normal Affect, Appropriate Results Lab / Micro Data 03/08/25 05:21 03/08/25 05:21 Labs: Laboratory Results - last 24 hr 03/07/25 10:35: WBC 11.3 H, RBC 3.48 L, Hgb 10.2 L, Hct 31.0 L, MCV 89.1, MCH 29.3, MCHC 32.9, RDW Std Deviation 42.3, RDW Coeff of Najma 13.0, Plt Count 291, MPV 8.9, Immature Gran % (Auto) 0.600, Neut % (Auto) 86.6 H, Lymph % (Auto) 6.9 L, Webster % (Auto) 5.2, Eos % (Auto) 0.3, Baso % (Auto) 0.4, Absolute Neuts (auto) 9.8 H, Absolute Lymphs (auto) 0.78 L, Nucleated RBC % 0, Sodium 135, Potassium 4.4, Chloride 102, Carbon Dioxide 20.3 L, Anion Gap 13, BUN 36 H, Creatinine 1.33 H, Est GFR (MDRD) Non-Af 38 L, BUN/Creatinine Ratio 27.1 H, Glucose 207 H, Calcium 9.2 03/07/25 14:08: POC Glucose 218 H Assessment & Plan Assessment/Plan (1) Back pain: PLAN: Plan 1. Back pain with mild radiculopathy down her right leg with an inability to complete ADLs ? The radiculopathy seems to have improved ? Continue with multimodal pain management ? Can continue with the prednisone taper from the emergency room 40 mg p.o. daily for 5 days then 20 for 5 days then 10 mg for 5 days ? PT/OT ? MRI is pending ? Will consult case management for discharge planning and possible placement 2. Essential HTN/HLD/coronary artery disease/chronic diastolic CHF ? Echo from 10/04/2024 with an EF of 65% and stage I diastolic dysfunction and an RVSP of 41 mmHg ? Heart cath on 10/06/2024 with a 50% stenosis in her mid LAD as well as a 50% stenosis in her mid RCA ? Will continue with her home blood pressure medications ? Monitor make adjustments as necessary ? Continue with aspirin and Plavix ? Continue with Jardiance both for her diastolic heart failure and her type 2 diabetes 3. DM2 ? Will continue with Jardiance ? Continue with sliding scale insulin Accu-Cheks ACHS ? Will monitor and make adjustments as necessary 4. GERD ? Stable ? Continue with PPI DVT: Lovenox Charges/Coding Visit Charges Inpatient E&M: 96572 Init Hosp L2
[2025-03-07 22:52] VITALS: BP 132/59; PULSE 63; RESP 16; TEMP 36.7; O2SAT 96
[2025-03-07] MEDS: Atorvastatin Calcium 80 MG Tablet PO (22:58)
[2025-03-07] MEDS: Carvedilol 3.125 MG TABLET PO (22:59)
[2025-03-07] MEDS: Orphenadrine 100 MG Tablet PO (22:59)
[2025-03-08 04:25] VITALS: BP 130/60; PULSE 68; RESP 16; TEMP 36.9; O2SAT 98
[2025-03-08] MEDS: Acetaminophen 500 MG Tablet 1000 MG PO ×2 (06:45→14:43)
[2025-03-08 07:39] VITALS: BP 139/54; PULSE 62; RESP 16; TEMP 36.8; O2SAT 94
[2025-03-08 07:40] LABS: Absolute Lymphocyte Count 1.51 X10^3/uL (0.83-4.51); Basophil# 0.04 X10^3/uL; Basophil% 0.4 % (0-1); Eosinophil# 0.01 X10^3/uL; Eosinophils% 0.1 % (0-5); Hematocrit 29.4 % (37-47); Hemoglobin 9.5 g/dL (12.0-15.0); Lymphocyte # 1.51 X10^3/ul (0.83-4.51); Lymphocyte % 14.4 % (19-41); Mean Corp Hgb Conc 32.3 g/dL (32-36); Mean Corpuscular Hgb 29.5 pg (27.0-32.0); Mean Corpuscular Volume 91.3 fL (81-99); Mean Platelet Vol. 9.1 fl (6.2-12.0); Monocyte# 0.87 X10^3/uL; Monocyte% 8.3 % (0-10); NRBC Flagged by Analyzer 0 % (0-5); Neutrophil # 7.99 X10^3/uL (2.7-7.7); Neutrophil % 76.3 % (47-70); Platelet Count 294 K/mm3 (150-450); RBC Distribution Width CV 12.9 % (11.6-14.6); RBC Distribution Width SD 42.4 fl (35.1-43.9); Red Blood Count 3.22 M/mm3 (4.2-5.4); White Blood Count 10.5 K/mm3 (4.4-11.0)
[2025-03-08] MEDS: Aspirin E.C. 81 MG Tablet PO (07:46)
[2025-03-08] MEDS: predniSONE 10 MG Tablet 40 MG PO (07:46)
[2025-03-08] MEDS: Carvedilol 3.125 MG TABLET PO (07:46)
[2025-03-08] MEDS: Furosemide 20 MG Tablet PO (07:47)
[2025-03-08] MEDS: Losartan Potassium 100 MG Tablet PO (07:47)
[2025-03-08] MEDS: Empagliflozin 10 MG Tablet PO (07:47)
[2025-03-08] MEDS: Isosorbide Mononitrate 30 MG Tablet PO (07:47)
[2025-03-08] MEDS: Orphenadrine 100 MG Tablet PO (07:48)
[2025-03-08] MEDS: Lidocaine 5% Patch 1 PATCH TOPICAL (07:48)
[2025-03-08] MEDS: amLODIPine 5 MG Tablet PO (07:48)
[2025-03-08] MEDS: Enoxaparin 30 MG/0.3 ML Syringe SC (07:48)
[2025-03-08] MEDS: Clopidogrel Bisulfate 75 MG Tablet PO (07:49)
[2025-03-08] MEDS: Pantoprazole Sodium 20 MG Tablet PO (07:49)
[2025-03-08 08:01] LABS: Anion Gap 11 (5-15); BUN 39 mg/dL (4-19); BUN/Creat Ratio 29.4 RATIO (10-20); Calcium,Total 8.9 mg/dL (7.6-11.0); Carbon Dioxide 22.2 mmol/L (21.0-32.0); Chloride 104 mmol/L (98-108); Creatinine, Serum 1.34 mg/dL (0.70-1.20); EST Glomerular Filtration Rate 38 (>60); Estimated Creatinine Clearance 27.79 ml/min (50-250); Glucose 112 mg/dL (70-99); Potassium 4.5 mmol/L (3.3-5.1); Sodium Level 137 mmol/L (133-145)
--- NOTE | 2025-03-08 09:40 | PCM.PN.HOSP ---
Subjective Subjective Doing well, pain is continuing to improve. Continue with PT/OT Objective Data Objective Data Vital Signs: Vital Signs Temp Pulse Resp BP Pulse Ox O2 Del Method 98.3 F 62 16 139/54 H 94 Room Air 03/08/25 07:39 03/08/25 07:39 03/08/25 07:39 03/08/25 07:39 03/08/25 07:39 03/08/25 07:39 Oxygen Delivery Method Room Air Weight: 160 lb 0.889 oz Body Mass Index (BMI) 27.4 Intake & Output: Intake and Output for Last 24 Hours 03/07/25 03/08/25 03/09/25 03:59 03:59 03:59 Output Total 200 / 200 200 / 200 Balance -200 / -200 -200 / -200 Lab / Micro Data 03/08/25 05:21 03/08/25 05:21 Labs: Laboratory Results - last 24 hr 03/07/25 10:35: WBC 11.3 H, RBC 3.48 L, Hgb 10.2 L, Hct 31.0 L, MCV 89.1, MCH 29.3, MCHC 32.9, RDW Std Deviation 42.3, RDW Coeff of Najma 13.0, Plt Count 291, MPV 8.9, Immature Gran % (Auto) 0.600, Neut % (Auto) 86.6 H, Lymph % (Auto) 6.9 L, Cuming % (Auto) 5.2, Eos % (Auto) 0.3, Baso % (Auto) 0.4, Absolute Neuts (auto) 9.8 H, Absolute Lymphs (auto) 0.78 L, Nucleated RBC % 0, Sodium 135, Potassium 4.4, Chloride 102, Carbon Dioxide 20.3 L, Anion Gap 13, BUN 36 H, Creatinine 1.33 H, Est GFR (MDRD) Non-Af 38 L, BUN/Creatinine Ratio 27.1 H, Glucose 207 H, Calcium 9.2 03/07/25 14:08: POC Glucose 218 H 03/08/25 05:21: WBC 10.5, RBC 3.22 L, Hgb 9.5 L, Hct 29.4 L, MCV 91.3, MCH 29.5, MCHC 32.3, RDW Std Deviation 42.4, RDW Coeff of Najma 12.9, Plt Count 294, MPV 9.1, Immature Gran % (Auto) 0.500, Neut % (Auto) 76.3 H, Lymph % (Auto) 14.4 L, Cuming % (Auto) 8.3, Eos % (Auto) 0.1, Baso % (Auto) 0.4, Absolute Neuts (auto) 8.0 H, Absolute Lymphs (auto) 1.51, Nucleated RBC % 0, Sodium 137, Potassium 4.5, Chloride 104, Carbon Dioxide 22.2, Anion Gap 11, BUN 39 H, Creatinine 1.34 H, Estim Creat Clear Calc 27.79 L, Est GFR (MDRD) Non-Af 38 L, BUN/Creatinine Ratio 29.4 H, Glucose 112 H, Calcium 8.9 Radiography Diagnostic Testing: Radiology Impression Lumbar Spine MRI 03/07/25 12:33 IMPRESSION: 1. Moderate spinal stenosis at L4-5 with right L4 nerve compression. 2. [id number] canal narrowing at L3-4. 3. Asymmetric left L5 foraminal narrowing with bulging disc abutting the nerve within the neural foramen Reading Location: [facility] Physical Exam Narrative General: Alert, Oriented x3, Cooperative, No apparent distress HEENT: Atraumatic, PERRLA, EOMI, Normocephalic, hard of hearing Oral: Moist Mucosa Neck: Supple, No JVD Lungs: Diminished, Normal air movement, No rhonchi, No wheeze, No rales Cardiovascular: Regular rate, Regular Rhythm, Normal S1, Normal S2, No murmurs Abdomen: Soft, Non Tender, Non-Distended, No Hepato-splenomegaly Extremities: No edema, Capillary Refill Less than 3 Seconds Skin: No rashes, No breakdown Musculoskeletal: Mild tenderness palpation of her lumbar region Neurological: No focal neurological deficits, moves all extremities, Sensory exam intact to light touch and pain Psych/Mental Status: Normal Affect, Appropriate Assessment & Plan Assessment/Plan (1) Back pain: PLAN: Plan 1. Back pain with mild radiculopathy down her right leg with an inability to complete ADLs ? The radiculopathy seems to have improved ? Continue with multimodal pain management ? Can continue with the prednisone taper from the emergency room 40 mg p.o. daily for 5 days then 20 for 5 days then 10 mg for 5 days ? PT/OT ? MRI with moderate spinal stenosis of L4-5 with right L4 nerve compression and mild to moderate canal narrowing at L3-4. There is an asymmetric left L5 foraminal narrowing with bulging disc abutting the nerve within the neuroforamen ? Given the fact that she is 89 years old I feel that it is more reasonable to trial physical therapy first and medications prior to evaluation with neurosurgery ? Will consult case management for discharge planning and possible placement 2. Essential HTN/HLD/coronary artery disease/chronic diastolic CHF ? Echo from 10/04/2024 with an EF of 65% and stage I diastolic dysfunction and an RVSP of 41 mmHg ? Heart cath on 10/06/2024 with a 50% stenosis in her mid LAD as well as a 50% stenosis in her mid RCA ? Will continue with her home blood pressure medications ? Monitor make adjustments as necessary ? Continue with aspirin and Plavix ? Continue with Jardiance both for her diastolic heart failure and her type 2 diabetes 3. DM2 ? Will continue with Jardiance ? Continue with sliding scale insulin ? Accu-Cheks ACHS ? Will monitor and make adjustments as necessary 4. GERD ? Stable ? Continue with PPI DVT: Lovenox Charges/Coding Visit Charges Inpatient E&M: 04475 Subs Hosp L2
[2025-03-08 09:46] VITALS: O2SAT 95
--- NOTE | 2025-03-08 10:25 | CASEMGMT ---
Addendum entered by Elida Arriaza 03/08/25 14:26: YUDI METZGER made aware that pt was approved for TCU. YUDI METZGER into pt room, pt lying in bed on speakerphone with dtr Deanna, they are both made aware that pt was accepted to go to TCU today. Pt is skeptical of this but thankful. Addendum entered by Elida Arriaza 03/08/25 13:14: Sent dtr Deanna [facility] list via text from [facility] at this time. Addendum entered by Elida Arriaza 03/08/25 12:47: 1232- YUDI METZGER notified that pt case was pended with insurance with potential answer in 2-5 days and intent to deny. Spoke with hospitalist who is aware. YUDI METZGER into pt room, pt made aware. Discussed with pt the option of private paying should insurance deny, pt states she wants to dc home. Provided pt with a list of [employer] created by dc therapeutic recreation assistant. She would like YUDI METZGER to call Deanna to let her pick the [facility]. TC to Deanna, she was made aware of the above and also agreed for pt to go home. She requests list electronically sent to her by text. Requested dc therapeutic recreation assistant to do so. She also asks for pt to be given pain meds or something for anxiety so she can sleep. Passed this request onto the hospitalist. She is inquiring on pain management. Provided local options with phone numbers on dc instructions. Original Note: YUDI METZGER spoke with PT regarding eval. YUDI METZGER into pt room, pt sitting up in chair with dtr Deanna who reports she is POA for pt and will bring in the paperwork to be scanned in, [place] in which pt lives with and son in law. Pt would like to go to [facility], she is aware there is potential that the insurance will not pay for this and there may not be bed availability. Pt and dtrs state if TCU is not an option, they do not want to go to any other SNF. Discussed options should TCU not be available. Pt would like [facility] for SN and PT. Pt has walker at home. Pt dtr Veronica to assist at home. SPENCER Kmuare will be going out of town and granddtr in law Kapil will be availble to help with care of pt in her absence. Pt aware that RN CM will be bringing a list of HHC options should TCU not have bed availability. Updated SW.
--- NOTE | 2025-03-08 10:40 | CASEMGMT ---
Addendum entered by Olya Horne 03/08/25 12:44: Social Work- TCU accepted referral, however, precert was pended and expected to be denied. Pt family agreeable to HHC. RNCM to follow. JERRI Kelley Original Note: Social Work- SW received notice that pt would like referral to TCU. SNF list declined, as if TCU cannot accept, pt would like HHC. SW completed referral to TCU admissions. SW remains available to follow. JERRI Kelley
--- NOTE | 2025-03-08 11:00 | CASEMGMT ---
Discharge Planning A list of HH providers including quality and resource use data and consistent with the patient's preferred geographic region, medical needs, and insurance network was created in [employer] Guide.? This list was provided to the RN YASSINE. Poppy Gay, Discharge Planning Asst.
[2025-03-08 11:24] LABS: Bedside Glucose 227 mg/dL (74-106)
--- NOTE | 2025-03-08 12:08 | CASEMGMT ---
Met with patient to complete MARIE form. MARIE form and its content were verbally explained and patient's questions were answered to the best of my ability.? Patient voiced understanding and signed MARIE form.? Patient provided a copy of signed MARIE form and original placed in patient's chart.? Patient had no further questions. Poppy Gay, Discharge Planning Asst
[2025-03-08] MEDS: Insulin Lispro 100 UNIT/ML INSULN.PEN SC (12:15)
--- NOTE | 2025-03-08 14:29 | CASEMGMT ---
Social Work- SW received notice that pt was approved for TCU. Physician and RNCM updated. Pt agreeable to discharge to TCU. TCU admissions updated. SW remains available to follow. JERRI Kelley
--- NOTE | 2025-03-08 14:32 | TREXTCAR_ITS ---
Diet Diet Order/Speech Therapy: INPATIENT Hospital Diet / Speech Therapy Order(s) 03/07/25 12:33 Diet: Cardiac - Heart Healthy Food consistency:: Regular Liquid Consistency:: Regular/Thin Routine Orders/Code Status Routine Lab Work: CBC and BMP DC O2, CPAP, BIPAP needs Home O2 Discharge instructions: No Therapies Physical Therapy: Eval and Treat Occupational Therapy: Eval and Treat Problem/Diagnosis (1) Back pain: Status: Acute Code(s): M54.9 - Dorsalgia, unspecified Plan 1. Back pain with mild radiculopathy down her right leg with an inability to complete ADLs ? The radiculopathy seems to have improved ? Continue with multimodal pain management ? Can continue with the prednisone taper from the emergency room 40 mg p.o. daily for 5 days then 20 for 5 days then 10 mg for 5 days ? PT/OT ? MRI with moderate spinal stenosis of L4-5 with right L4 nerve compression and mild to moderate canal narrowing at L3-4. There is an asymmetric left L5 foraminal narrowing with bulging disc abutting the nerve within the neuroforamen ? Given the fact that she is 89 years old I feel that it is more reasonable to trial physical therapy first and medications prior to evaluation with kwame rosurgery ? Will consult case management for discharge planning and possible placement 2. Essential HTN/HLD/coronary artery disease/chronic diastolic CHF ? Echo from 10/04/2024 with an EF of 65% and stage I diastolic dysfunction and an RVSP of 41 mmHg ? Heart cath on 10/06/2024 with a 50% stenosis in her mid LAD as well as a 50% stenosis in her mid RCA ? Will continue with her home blood pressure medications ? Monitor make adjustments as necessary ? Continue with aspirin and Plavix ? Continue with Jardiance both for her diastolic heart failure and her type 2 diabetes 3. DM2 ? Will continue with Jardiance ? Continue with sliding scale insulin ? Accu-Cheks ACHS ? Will monitor and make adjustments as necessary 4. GERD ? Stable ? Continue with PPI DVT: Lovenox Allergies/Procedures Done in Hospital Allergies metformin Allergy (Verified 03/07/25 09:51) Hives morphine Adverse Reaction (Verified 03/07/25 09:51) Nausea oxycodone (Oxycodone) Adverse Reaction (Verified 03/07/25 09:51) Nausea Procedures: None Type of Care/Length of Stay Estimated LOS: Convalescent Care Less Than 30 days Type of Care Needed: Skilled Rehab Potential: Good Prognosis: Good Additional Orders/Day of Discharge Day of Discharge: 03/08/25 Discharge Plan Admission Admit Date/Time: 03/07/25 11:20 Attending Provider: Chin Hawthorne Primary Care Provider: Jose Alberto Stanton Discharge Orders/Prescriptions Prescriptions: New acetaminophen 500 mg Tablet 1,000 mg PO Q8 Qty: 0 0RF lidocaine 5 % Adhesive Patch,Medicated 1 patch topical DAILY Qty: 0 0RF Protocol: *Topical Application Instructions APPLICATION INSTRUCTIONS: lumbar Continued carvedilol 3.125 mg tablet 3.125 mg PO BID 30 Days Qty: 180 3RF Jardiance 10 mg tablet 10 mg PO DAILY 30 Days Qty: 90 3RF clopidogrel 75 mg tablet 75 mg PO DAILY 30 Days Qty: 90 3RF Rx Instructions: Discontinue if platelet count drops less than 50,000 or hemoglobin less than 8 g% omeprazole 20 mg capsule,delayed release(DR/EC) 20 mg PO QODAY nitroglycerin 0.4 mg tablet, sublingual 0.4 mg sublingual Q5-15M PRN (Reason: chest pain) Qty: 20 3RF Rx Instructions: do not exceed 3 doses per episode multivitamin with folic acid 1 TABLET tablet 1 tab PO DAILYCM Qty: 30 0RF Patient Comments: supplement (DME) True Metrix Glucose Test Strip Strip MISCELLANEOUS DAILY aspirin 81 mg Tablet,Delayed Release (Dr/Ec) 81 mg PO BREAKFAST 30 Days Qty: 30 4RF furosemide 20 mg tablet 20 mg PO DAILY isosorbide mononitrate 30 mg tablet extended release 24 hr 30 mg PO DAILY losartan 100 mg tablet 100 mg PO DAILY atorvastatin 80 mg tablet 80 mg PO QHS amlodipine 5 mg tablet 5 mg PO DAILY prednisone 10 mg tablet See Taper PO DAILY Taper: Prednisone Taper 40 mg WITH BREAKFAST for 5 Days 20 mg WITH BREAKFAST for 5 Days 10 mg WITH BREAKFAST for 5 Days Rx Instructions: SEE TAPER orphenadrine citrate 100 mg tablet extended release 100 mg PO BID Referrals / Follow Up: Jose Alberto Stanton MD [Primary Care Provider] - Disposition Disposition (needs filled in before D/C Order can be placed): [facility]
--- NOTE | 2025-03-08 14:35 | PCM.DC.SUM ---
Providers Date of Admission: 03/07/25 Primary Care Physician: Dr. Jose Alberto Stanton MD Reason For Visit: BACK PAIN Diagnosis Discharge Diagnosis (1) Back pain: Status: Acute Code(s): M54.9 - Dorsalgia, unspecified Medications at Discharge Home Medications multivitamin with folic acid 400 mcg tablet 1 tab PO DAILYCM vitamin #30 tabs 02/11/15 blood sugar diagnostic (True Metrix Glucose Test Strip) 10/04/24 aspirin 81 mg tablet,delayed release 81 mg PO BREAKFAST 30 days #30 tabs 10/08/24 carvedilol 3.125 mg tablet 3.125 mg PO BID 30 days #180 tabs 10/12/24 clopidogrel 75 mg tablet 75 mg PO DAILY 30 days #90 tabs 10/12/24 empagliflozin 10 mg tablet (Jardiance) 10 mg PO DAILY 30 days #90 tabs 10/12/24 nitroglycerin 0.4 mg sublingual tablet 0.4 mg sublingual Q5-15M PRN chest pain #20 tabs 01/01/25 omeprazole 20 mg capsule,delayed release 20 mg PO QODAY 01/01/25 furosemide 20 mg tablet 20 mg PO DAILY 03/03/25 isosorbide mononitrate 30 mg tablet,extended release 24 hr 30 mg PO DAILY 03/03/25 losartan 100 mg tablet 100 mg PO DAILY 03/03/25 amlodipine 5 mg tablet 5 mg PO DAILY 03/07/25 atorvastatin 80 mg tablet 80 mg PO QHS cholesterol 03/07/25 orphenadrine citrate 100 mg tablet,extended release 100 mg PO BID 03/07/25 prednisone 10 mg tablet See Taper PO DAILY 03/07/25 acetaminophen 500 mg tablet 1,000 mg (2 x 500 mg) PO Q8 #0 tabs 03/08/25 lidocaine 5 % topical patch 1 patch topical DAILY #0 ea 03/08/25 Hospital Course Operations None Procedures None Summary of Care Provided Minutes Spent on Discharge: 32 Hospital Course: Per HPI: MARIAM DUEÑAS, is a 89 F who presents to the hospital with acute on subacute back pain. She says it was going down her legs but now its much improved though she still has significant pain with ambulation. She denies any significant trauma prior to this happening she said that she was getting up and trying to move when she noticed the pain in her back. She initially noticed pain a couple weeks ago but it is steadily gotten worse and then on 03/02/2025 she was trying to move and twisted and had a much more significant and worse pain. The pain would go down her right leg. Her straight leg raises negative though she does have some pain when you are lowering her leg indicating more of a low back musculoskeletal issue versus an actual nerve compression. No fevers or chills. She had presented initially to the ER on 03/03/2025 CT demonstrated degenerative disc disease but nothing acute or significant. No loss of bowel or bladder function either on her initial visit or on this visit. Hospital Course: 1. Back pain with mild radiculopathy down her right leg with inability to complete ADLs?89-year-old female presented to the hospital with ongoing back pain that did get worse overnight and so she presented to the ER. MRI demonstrated moderate spinal stenosis L4-5 with right L4 nerve compression and mild to moderate canal narrowing at L3-4. There is asymmetric left L5 foraminal narrowing with bulging disc abutting the nerve within the neuroforamen. Will continue with medications and physical therapy but it may be beneficial to at least have her follow-up with neurosurgery as an outpatient to see if there is any surgical intervention that could be done though limited given her age and comorbidities. She was eval by PT/OT today and a referral was made to the transitional care unit and she was excepted both by them and by the insurance company therefore we will plan to discharge to the transitional care unit today. I discussed with her the plan for discharge and she expressed understanding of the risks and benefits of going to the correction and would like to go today. 2. Essential hypertension, hyperlipidemia, coronary artery disease, chronic diastolic CHF, type 2 diabetes, GERD are all chronic medical conditions which complicate her care. Her home medications were continued where appropriate Physical Exam Narrative General: Alert, Oriented x3, Cooperative, No apparent distress HEENT: Atraumatic, PERRLA, EOMI, Normocephalic, hard of hearing Oral: Moist Mucosa Neck: Supple, No JVD Lungs: Diminished, Normal air movement, No rhonchi, No wheeze, No rales Cardiovascular: Regular rate, Regular Rhythm, Normal S1, Normal S2, No murmurs Abdomen: Soft, Non Tender, Non-Distended, No Hepato-splenomegaly Extremities: No edema, Capillary Refill Less than 3 Seconds Skin: No rashes, No breakdown Musculoskeletal: Mild tenderness palpation of her lumbar region Neurological: No focal neurological deficits, moves all extremities, Sensory exam intact to light touch and pain Psych/Mental Status: Normal Affect, Appropriate Weight / BMI Weight Weight: 160 lb 0.889 oz Body Mass Index (BMI) 27.4 ABG / Lab / Microbiology Data 03/08/25 05:21 03/08/25 05:21 Laboratory: Laboratory Results - last 24 hr 03/08/25 05:21: WBC 10.5, RBC 3.22 L, Hgb 9.5 L, Hct 29.4 L, MCV 91.3, MCH 29.5, MCHC 32.3, RDW Std Deviation 42.4, RDW Coeff of Najma 12.9, Plt Count 294, MPV 9.1, Immature Gran % (Auto) 0.500, Neut % (Auto) 76.3 H, Lymph % (Auto) 14.4 L, Chase % (Auto) 8.3, Eos % (Auto) 0.1, Baso % (Auto) 0.4, Absolute Neuts (auto) 8.0 H, Absolute Lymphs (auto) 1.51, Nucleated RBC % 0, Sodium 137, Potassium 4.5, Chloride 104, Carbon Dioxide 22.2, Anion Gap 11, BUN 39 H, Creatinine 1.34 H, Estim Creat Clear Calc 27.79 L, Est GFR (MDRD) Non-Af 38 L, BUN/Creatinine Ratio 29.4 H, Glucose 112 H, Calcium 8.9 03/08/25 11:06: POC Glucose 227 H Radiography Diagnostic Testing: Radiology Impression Lumbar Spine MRI 03/07/25 12:33 IMPRESSION: 1. Moderate spinal stenosis at L4-5 with right L4 nerve compression. 2. Azut-hk-[place] canal narrowing at L3-4. 3. Asymmetric left L5 foraminal narrowing with bulging disc abutting the nerve within the neural foramen Reading [facility] D/C Instructions DC O2, CPAP, BIPAP Needs Home O2 Discharge instructions: No Meaningful Use Info Meaningful Use Meaningful Use Diagnoses (Choose all that apply): None applicable Ischemic Stroke Statin Dosing Therapy Reference: STATIN DOSE THERAPY REFERENCE: * Patients > 75 years receive moderate or high dose statin therapy. * Patients 75 years or YOUNGER should receive HIGH intensity statin dose unless contraindicated. You will be required to document reason for non-treatment if statin daily dose does not meet guidelines. HIGH DOSE STATIN THERAPY DAILY Atorvastatin > than or = to 40 mg Rosuvastatin > than or = to 20 mg Amlodipine + Atorvastatin > than or = to 2.5/40 mg Ezetimibe + Simvastatin 10/80 mg Simvastatin 80mg Discharge Plan Admission Admit Date/Time: 03/07/25 11:20 Attending Provider: Chin Hawthorne Primary Care Provider: Jose Alberto Stanton Discharge Orders/Prescriptions Prescriptions: New acetaminophen 500 mg Tablet 1,000 mg PO Q8 Qty: 0 0RF lidocaine 5 % Adhesive Patch,Medicated 1 patch topical DAILY Qty: 0 0RF Protocol: *Topical Application Instructions APPLICATION INSTRUCTIONS: lumbar Continued carvedilol 3.125 mg tablet 3.125 mg PO BID 30 Days Qty: 180 3RF Jardiance 10 mg tablet 10 mg PO DAILY 30 Days Qty: 90 3RF clopidogrel 75 mg tablet 75 mg PO DAILY 30 Days Qty: 90 3RF Rx Instructions: Discontinue if platelet count drops less than 50,000 or hemoglobin less than 8 g% omeprazole 20 mg capsule,delayed release(DR/EC) 20 mg PO QODAY nitroglycerin 0.4 mg tablet, sublingual 0.4 mg sublingual Q5-15M PRN (Reason: chest pain) Qty: 20 3RF Rx Instructions: do not exceed 3 doses per episode multivitamin with folic acid 1 TABLET tablet 1 tab PO DAILYCM Qty: 30 0RF Patient Comments: supplement (DME) True Metrix Glucose Test Strip Strip MISCELLANEOUS DAILY aspirin 81 mg Tablet,Delayed Release (Dr/Ec) 81 mg PO BREAKFAST 30 Days Qty: 30 4RF furosemide 20 mg tablet 20 mg PO DAILY isosorbide mononitrate 30 mg tablet extended release 24 hr 30 mg PO DAILY losartan 100 mg tablet 100 mg PO DAILY atorvastatin 80 mg tablet 80 mg PO QHS amlodipine 5 mg tablet 5 mg PO DAILY prednisone 10 mg tablet See Taper PO DAILY Taper: Prednisone Taper 40 mg WITH BREAKFAST for 5 Days 20 mg WITH BREAKFAST for 5 Days 10 mg WITH BREAKFAST for 5 Days Rx Instructions: SEE TAPER orphenadrine citrate 100 mg tablet extended release 100 mg PO BID Referrals / Follow Up: Jose Alberto Stanton MD [Primary Care Provider] - Disposition Disposition (needs filled in before D/C Order can be placed): [facility] Facility Charges/Coding Visit Charges Inpatient E&M: 00752 Disch Hosp >30min
[2025-03-08 14:40] VITALS: BP 129/51; PULSE 59; RESP 18; TEMP 36.1; O2SAT 96
--- NOTE | 2025-03-08 15:02 | CASEMGMT ---
Social Work Precert has been obtained.? Physician updated and pt is ready for discharge today.?SW met with pt and they are agreeable to discharge plan as stated above.? Bedside nurse notified of discharge. Disposition:TCU, skilled level of care JERRI Kelley
--- NOTE | 2025-03-08 16:15 | CHAPLAIN ---
Type of Pastoral Visit _x__ Initial Visit ___ Follow-up Visit ___ On-call Visit ___ General Patient Visit ___ Spiritual Assessment ___ Family Conference ___ Bereavement ___ Rapid Response ___ Code Blue ___ Other (describe below) Pastoral Care Referral From _x__ Patient ___ Family ___ Nurse ___ Physician ___ Absorber Operator ___ Lithographic Retoucher Apprentice ___ Other (describe below) Sacrament/Intervention _x__ Active listening ___ Anointing ___ Mormonism ___ Bereavement ___ Communion ___ Josefina exploration ___ ___ Life review _x__ Prayer ___ Reconciliation ___ Sacrament of Sick ___ Supportive presence ___ Wedding ___ Other (describe below) Pastoral Comments
[2025-03-08 16:59] LABS: Bedside Glucose 366 mg/dL (74-106)
== END 2025-03-08 17:25 | disposition skilled nursing facility (03) ==
LOC: ED 12:04 → MS3 12:17
PROVIDERS: Admitting Provider Family Medicine; Emergency Provider Emergency Medicine; PCP Family Medicine; Referring Provider Family Medicine; Visit Provider Family Medicine
DX: M47.26 Other spondylosis with radiculopathy, lumbar region (principal); I13.0 Hypertensive heart and chronic kidney disease with heart failure and stage 1 through stage 4 chronic kidney disease, or unspecified chronic kidney disease; I50.33 Acute on chronic diastolic (congestive) heart failure; E11.22 Type 2 diabetes mellitus with diabetic chronic kidney disease; N18.32 Chronic kidney disease, stage 3b; R26.2 Difficulty in walking, not elsewhere classified; Z79.02 Long term (current) use of antithrombotics/antiplatelets; I25.10 Atherosclerotic heart disease of native coronary artery without angina pectoris; Z79.84 Long term (current) use of oral hypoglycemic drugs; K21.9 Gastro-esophageal reflux disease without esophagitis; Z79.82 Long term (current) use of aspirin; E78.00 Pure hypercholesterolemia, unspecified; M48.061 Spinal stenosis, lumbar region without neurogenic claudication
CPT/HCPCS: 36415; 72148; 80048; 82962; 85025; 96372; 96374; 96375; 97162; 97166; 99221; 99284; A4216; G0378; J2405

== ENCOUNTER 2025-03-08 17:34 | Inpatient (IN) | payer MEDICARE, SELFPAY ==
[2025-03-08 17:43] VITALS: BP 154/59; PULSE 71; RESP 17; TEMP 35.9; O2SAT 95; BMI 26.2
[2025-03-08 17:53] VITALS: BMI 27.8
--- OUTSIDE RECORDS SUMMARY | 2025-03-08 18:12 | XMS RPT_ITS | CCD ---
Author Organization [facility] Care Team Providers Care Durable Medical Equipment Technician Name Role Phone CEBUL, NISHA A III Unavailable Unavailable CEBUL, NISHA A III Unavailable Unavailable CEBUL, NISHA A III Unavailable Unavailable Blaz METAL DRILL OPERATOR.BERNARDO, Khari JAMISON Primary Care Provider Allie Stanton MD Primary Care Provider Allie Stanton MD Primary Care Provider Blaz METAL DRILL OPERATOR.BERNARDO, Khari JAMISON Primary Care Provider [place] METAL DRILL OPERATOR.Treva CHANG Unavailable Parminder METAL DRILL OPERATOR.Imtiaz CHANG Unavailable Chinyere Pabon RN Unavailable NISHA DONAHUE MD, III Primary Care Physician Lety Smith PT Unavailable Unavailable JONAH BASHIR MD Attending Unavailable NISHA DONAHUE MD, III Primary Care Unavailabl e [place] METAL DRILL OPERATOR.Treva CHANG Unavailable Chinyere Pabon RN Unavailable Cathy Dugan RN Unavailable Unavailable Lori SPANISH TRANSLATOR-CTreva Primary Care Provider Lori SPANISH TRANSLATOR-CTreva Referring Provider Dr. Jonah Bashir MD Attending Provider Julio Pickens MD Emergency Provider Dr. Allie Stanton MD Primary Care Provider Jenifer Valente Consulting Unavailable Treva Sandoval Primary Care Unavailable Tone Bethea Attending Unavailable Jenifer Valente Admitting Unavailable Lake, Jonah Consulting Unavailable Lake, Tone Consulting Unavailable Tanphaichitr, Natthavat Consulting Unavaila ble Tannhof, Treva Primary Care Unavailable Tannhof, Treva Referring Unavailable Lake, Jonah Attending Unavailable Tannhof, Treva Primary Care Unavailable Tannhof, Treva Referring Unavailable Lake, Jonah Attending Unavailable Tannhof, Treva Primary Care Unavailable Lake, Jonah Attending Unavailable Jenifer Valente Attending Unavailable Elderbrock, Allie Primary Care Unavailable Julio Pickens Attending Unavailable Jenifer Valente Consulting Unavailable Lake, Tone Attending Unavailable Ambrosio Jenifer Admitting Unavailable Tannhof, Treva Primary Care Unavailable Lake, Jonah Consulting Unavailable Tanphaichitr, Natthavat Consulting Unavaila ble Lake, Jonah Attending Unavailable Carl EMMANUEL, Dr. Shaw Emergency Provider Christoph KNOTT, Dr. Chin Menjivar Admit Provider [phone] Christoph KNOTT, Dr. Chin Menjivar Attending Provider Christoph KNOTT, Dr. Chin Menjivar Referring Provider TREAV SANDOVAL Attending Unavailabl e ELDERWILFRID, ALLIE D Primary Care Unavailable TANNHOTiara, TREVA LEE Attending Unavailabl e ELDERWILFRID, ALLIE D Primary Care Unavailable IMTIAZ HODGE Attending Unavailable ELDERBROCK, ALLIE D Primary Care Unavailable ELDERSALCK, ALLIE D Attending Unavailable ELDERSALCK, ALLIE D Primary Care Unavailable TANNHOF, TREVA LEE Attending Unavailabl e ELDERBROCK, ALLIE D Primary Care Unavailable TANNHOF, TREVABOB BARNESE Referring Unavailabl e ELDERBROCK, ALLIE D Primary Care Unavailable TANNHOF, TREVA LEE Attending Unavailabl e ELDERBROCK, ALLIE D Primary Care Unavailable TANNHOF, TREVA JESUS Referring Unavailabl e ELDERBROCK, ALLIE D Primary Care Unavailable TANNHOF, TREVA JESUS Referring Unavailabl e ELDERBROCK, ALLIE D Primary Care Unavailable TANNHOF, TREVA JESUS Referring Unavailabl e ELDERBROCK, ALLIE D Primary Care Unavailable Julio Pickens MD Attending Provider Christoph KNOTT, Dr. Chin Menjivar Other Provider Allergies Allergy Classification Reported Allergen(s) Allergy Type Date of Onset Reaction(s) Facility (20 sources) lansoprazole; Translations: [LANSOPRAZOLE] Drug Allergy 07-20-2005 [facility] (20 sources) metFORMIN; Translations: [METFORMIN] Drug Allergy 03-13-2013 Diarrhea [facility] (20 sources) Morphine; Translations: [MORPHINE] Drug Allergy 02-14-2016 GI Upset [facility] (20 sources) oxyCODONE; Translations: [OXYCODONE] Drug Allergy 02-14-2016 GI Upset [facility] (1 source) Acetaminophen / oxyCODONE; Translations: [acetaminophen-oxy codone] Drug Allergy [facility] Comment on above: Makes pt feel sick t o stomach, has thrown up after taking medication. (1 source) metFORMIN Drug Allergy 03-03-2025 [facility] (1 source) Morphine Drug Allergy 03-03-2025 [facility] (1 source) oxyCODONE Drug Allergy 03-03-2025 [facility] Medications Current Medications Medication Drug Class(es) Dates Sig (Normalized) Sig (Original) acetaminophen 500 mg oral tablet (2 sources) Start: 03-08-2025 take 2 tablets by mouth every eight hours Acetaminophen 500 mg Tablet Active 1000 mg PO EVERY 8 HOURS 0 March 08, 2025 12:00am Start: 06-21-2015 Tylenol 325 mg oral tablet Dose : 650 mg = 2 tab(s), Oral, q4h, PRN Pain, scale 1-3, 0 Refill(s) Start Date: 06/21/15 Status: Ordered Repeat number: 1 aspirin 81 mg delayed release oral tablet (20 sources) Platelet Aggregation Inhibitor, Nonsteroidal Anti-inflammatory Drug Start: 06-13-2015 take 1 tablet by mouth at breakfast Aspirin 81 mg Tablet,Delayed Release (Dr/Ec) Active 81 mg PO WITH BREAKFAST 30 October 08, 2024 1:00am Start: 02-08-2015 End: 04-10-2019 take 1 tablet by mouth once daily Aspirin 81 MG tablet,chewable Discontinued 81 mg PO DAILY@0800 February 08, 2015 12:00am April 10, 2019 3:04pm atorvastatin 80 mg oral tablet (20 sources) HMG-CoA Reductase Inhibitor Start: 03-07-2025 take 1 tablet by mouth at bedtime Atorvastatin 80 mg tablet Active 80 mg PO AT BEDTIME March 07, 2025 12:00am Start: 10-12-2024 End: 03-07-2025 take 1 tablet by mouth at bedtime Atorvastatin 40 mg tablet Discontinued 40 mg PO AT BEDTIME October 12, 2024 1:00am March 07, 2025 10:40am Start: 08-25-2013 End: 10-12-2024 take 1 tablet by mouth at bedtime Atorvastatin 80 MG tablet Discontinued 80 mg PO AT BEDTIME August 25, 2013 1:00am October 12, 2024 5:39pm Comment on above: Take 1 tablet by candice th daily at bedtime. For cholesterol. blood glucose control high&low(FREESTYLE CONTROL SOLN) (20 sources) Start: 12-04-19 blood glucose control high&low(FREESTYLE CONTROL SOLN) use as directed 1 0 12/03/2008 Active Comment on above: use as directed carvedilol 3.125 mg oral tablet (20 sources) alpha-Adrenergic Stalin, beta-Adrenergic Stalin Start: 10-08-19 End: 10-12-19 take 1 tablet by mouth twice daily Carvedilol 3.125 mg tablet Active 3.125 mg PO TWICE A DAY October 12, 2024 5:41pm empagliflozin 10 mg oral tablet (20 sources) Sodium-Glucose Cotransporter 2 Inhibitor Start: 10-08-19 End: 10-12-19 take 1 tablet by mouth once daily Empagliflozin (Jardiance) 10 mg tablet Active 10 mg PO DAILY October 12, 2024 5:41pm furosemide 20 mg oral tablet (20 sources) Loop Diuretic Start: 12-29-19 End: 12-29-19 26 take 1 tablet by mouth once daily Furosemide 20 mg tablet Active 20 mg PO DAILY March 03, 2025 12:00am Start: 12-19-2024 End: 06-17-2025 take 0.5 tablet by mouth once daily furosemide (LASIX) 40 mg tablet Take 0.5 tablets by mouth once daily. 30 tablet 2 12/19/2024 06/17/2025 Active Start: 11-06-2024 End: 03-03-2025 Furosemide 40 mg tablet Disc ontinued 20 mg PO DAILY November 06, 2024 5:22pm March 03, 2025 7:57am Start on 10/12/2024 in consultation with PCP. Start: 10-08-2024 End: 12-19-2024 take 1 tablet by mouth once daily Furosemide 40 mg Tablet Discontinued 40 mg PO DAILY October 08, 2024 1:00am November 06, 2024 5:23pm Start on 10/12/2024 in consultation with PCP. lidocaine 0.05 mg/mg medicated patch (1 source) Antiarrhythmic, Amide Local Anesthetic Start: 03-08-2025 Lidocaine 5 % Adhesive Patch,Medicated Active 1 NMA TOPICAL DAILY 0 March 08, 2025 12:00am Please contact the information source for Protocol details. losartan potassium 100 mg oral tablet (13 sources) Angiotensin 2 Receptor Stalin Start: 01-01-2025 End: 03-03-2025 take 1 tablet by mouth once daily Losartan 100 mg tablet Active 100 mg PO DAILY March 03, 2025 12:00am Start: 10-12-2024 End: 01-01-2025 take 1 tablet by mouth once daily Losartan 50 mg tablet Discontinued 50 mg PO daily October 12, 2024 1:00am January 01, 2025 3:00pm meloxicam 15 mg oral tablet (10 sources) Nonsteroidal Anti-inflammatory Drug Start: 02-17-2023 End: 04-18-2023 take 1 tablet by mouth once daily [...] Multiple Vitamins oral tablet (1 source) Start: 5 take 1 tablet by mouth once daily Multiple Vitamins oral tablet Dose = 1 tab(s), Oral, qDay, # 90 tab(s), 0 Refill(s) Start Date: 06/13/15 Status: Ordered Quantity: 90.0 Unit: tab(s) Repeat number: 1 Multivitamin With Folic Acid 1 TABLET tablet (3 sources) Start: 5 take 1 tablet by mouth once daily at mealtime Multivitamin With Folic Acid 1 TABLET tablet Active 1 {tbl} PO DAILY WITH MEALS February 11, 2015 12:00am MULTIVITS,TH W-CA,FE,OTH MIN (MULTIVITAMIN AND MINERAL ORAL) [...] Take 1 tablet by candice once daily. nitroglycerin 0.4 mg sublingual tablet (3 sources) Nitrate Vasodilator Start: 01-02-20 25 Nitroglycerin 0.4 mg tablet, sublingual Active 0.4 mg SL every 5 to 15 minutes as needed for chest pain January 01, 2025 12:00am do not exceed 3 doses per episode ondansetron 4 mg oral tablet (1 source) Serotonin-3 Receptor Antagonist Start: 06-19-20 15 Zofran 4 mg oral tablet Dose : 4 mg = 1 tab(s), Oral, q8h, PRN as needed for nausea/vomiting, # 10 tab(s), 0 Refill(s) Start Date: 06/19/15 Status: Ordered Quantity: 10.0 Unit: tab(s) Repeat number: 1 12 hr orphenadrine citrate 100 mg extended release oral tablet (4 sources) Muscle Relaxant Start: 03-05-20 take 1 tablet by mouth twice daily Orphenadrine Citrate 100 mg tablet extended release Active 100 mg PO TWICE A DAY March 07, 2025 12:00am pantoprazole 40 mg delayed release oral tablet (7 sources) Proton Pump Inhibitor Start: 06-21-20 Protonix 40 mg oral enteric coated tablet Dose : 40 mg = 1 tab(s), Oral, BIDAC, # 60 tab(s), 0 Refill(s) Start Date: 06/21/15 Status: Ordered Quantity: 60.0 Unit: tab(s) Repeat number: 1 Start: 02-11-2015 End: 04-10-2019 take 1 tablet by mouth twice daily Pantoprazole 20 MG tablet Discontinued 20 mg PO TWICE A DAY 60 February 27, 2015 7:59am April 10, 2019 3:06pm Miralax (20 sources) Osmotic Laxative Start: 06-13-2015 take 17 doses by mouth once daily MiraLax oral powder for reconstitution Dose : 17 g =, Oral, qDay, 0 Refill(s) Start Date: 06/13/15 Status: Ordered Repeat number: 1 Start: 05-31-2015 End: 09-14-2024 polyethylene glycol 3350 (ME RALAX) 17 gram/dose powder Take one scoop daily with glass of juice/water/etc. 1 Bottle 0 05/31/2015 09/14/2024 Discontinued (Course of therapy completed) Start: 02-11-2015 End: 04-10-2019 take 17 g by mouth once daily Polyethylene Glycol 3350 17 GM packet Discontinued 17 g PO DAILY February 11, 2015 12:00am April 10, 2019 3:05pm Comment on above: Take one scoop daily with glass of juice/water/etc. Povidone (19 sources) Start: 09-14-2024 End: 09-14-2025 povidone, THERESA, (THERESA HOPE,) 0.5 % drop Indications: Dry eye Use 1 Drop in eyes three times a day. 10 mL 5 09/14/2024 09/14/2025 Active predniSONE 10 mg oral tablet (4 sources) Start: 03-07-2025 Prednisone 10 mg tablet Active 0 mg PO DAILY March 07, 2025 12:00am SEE TAPER Please contact the information source for Taper Schedule details. Start: 03-05-2025 End: 03-20-2025 predniSONE (DELTASONE) 10 mg tablet Indications: Acute midline low back pain without sciatica Take 4 tabs daily x5 days, then 2 tabs daily for 5 days, then 1 tab daily for 5 days. 35 tablet 03/05/2025 03/20/2025 Active Completed/Discontinued Medications Medication Drug Class(es) Dates [...] 3 11/18/2020 11/27/2021 Discontinued (Discontinued by Patient) amLODIPine 10 mg oral tablet (20 sources) Dihydropyridine Calcium Channel Stalin Start: 01-01-2025 End: 03-07-2025 take 1 tablet by mouth once daily Amlodipine 10 mg tablet Discontinued 10 mg PO DAILY March 03, 2025 12:00am March 07, 2025 10:39am Start: 06-13-2015 End: 10-24-2025 take 1 tablet by mouth once daily Amlodipine 5 mg tablet Discontinued 5 mg PO DAILY April 10, 2019 12:00am January 01, 2025 3:00pm amLODIPine 5 mg / hydroCHLOROthiazide 12.5 mg / valsartan 160 mg oral tablet (3 sources) Thiazide Diuretic, Dihydropyridine Calcium Channel Stalin, Angiotensin 2 Receptor Stalin Start: 08-25-2013 End: 10-13-2013 take 5-160 tablets by mouth once daily Zskauhcrhs-Kiltllxug-Jmfrdyvob (Exforge Hct 5-160-12.5 Mg Tab) 1 EACH tablet Discontinued 1 NMA PO DAILY August 25, 2013 1:00am October 13, 2013 2:59pm clopidogrel 75 mg oral tablet (20 sources) P2Y12 Platelet Inhibitor Start: 10-09-2024 take 1 tablet by mouth once daily clopidogrel (PLAVIX) 75 mg tablet Take 75 mg by mouth once daily. 10/09/2024 Active Start: 10-08-2024 End: 10-12-2024 take 1 drop(s) by mouth once daily Clopidogrel 75 mg tablet Active 75 mg PO DAILY 90 October 12, 2024 5:42pm Discontinue if platelet count drops less than 50,000 or hemoglobin less than 8 g% 0.3 ml enoxaparin sodium 100 mg/ml prefilled syringe (6 sources) Low Molecular Weight Heparin Start: 02-11-2015 End: 02-27-2015 Enoxaparin 30 MG/0.3 ML syringe Discontinued 30 mg SC DAILY@0600 14 February 27, 2015 12:00am February 27, 2015 8:15am ferrous sulfate 325 mg oral tablet (3 sources) Start: 02-11-2015 End: 02-27-2015 take 1 tablet by mouth twice daily at mealtime Ferrous Sulfate 325 MG tablet Discontinued 325 mg PO TWICE DAILY WITH MEALS 60 February 11, 2015 12:00am February 27, 2015 7:58am glimepiride 1 mg oral tablet (20 sources) Sulfonylurea Start: 10-22-2022 End: 12-13-2025 take 1 tablet by mouth once daily Glimepiride 1 mg tablet Discontinued 1 mg PO daily January 01, 2025 12:00am March 03, 2025 7:57am Start: 06-13-2015 Amaryl 4 mg or al tablet Dose : 4 mg = 1 tab(s), Oral, qDay, # 90 tab(s), 0 Refill(s) Start Date: 06/13/15 Status: Ordered Quantity: 90.0 Unit: tab(s) Repeat number: 1 Start: 08-25-2013 End: 01-01-2025 take 1 tablet by mouth once daily Glimepiride 2 MG tablet Discontinued 4 mg PO DAILY August 25, 2013 1:00am January 01, 2025 9:14am On Hold: Hold today and then start low-dose 2 mg daily because of NEELIMA. Comment on above: Take 1 tablet by [...] daily. 90 capsule 3 10/08/2021 10/19/2022 Discontinued Start: 05-23-2019 End: 10-04-2024 take 1 tablet by mouth once daily Hydrochlorothiazide 12.5 MG tablet Discontinued 12.5 mg PO DAILY May 23, 2019 12:00am October 04, 2024 11:40am Start: 10-13-2013 End: 02-11-2015 take 1 capsule by mouth once daily Hydrochlorothiazide 12.5 MG capsule Discontinued 12.5 mg PO DAILY October 13, 2013 1:00am February 11, 2015 11:35am Comment on above: Take 1 capsule by mo [facility] once daily. 24 hr isosorbide mononitrate 30 mg extended release oral tablet (13 sources) Nitrate Vasodilator Start: 5 End: 5 take 1 tablet by mouth once daily, then take 1 tablet by mouth every twenty-four hours Isosorbide Mononitrate 30 mg tablet extended release 24 hr Discontinued 30 mg PO daily October 23, 2024 4:42pm March 03, 2025 8:00am lisinopril 40 mg oral tablet (20 sources) Angiotensin Converting Enzyme Inhibitor Start: 3 End: 5 take 1 tablet by mouth once daily Lisinopril 40 MG tablet Discontinued 40 mg PO DAILY August 25, 2013 1:00am October 12, 2024 5:41pm On Hold: Hold for 5 days. Start with lower dose 10 mg in consultation with PCP Comment on above: Take 1 tablet by [facility] once daily. 24 hr metoprolol succinate 25 mg extended release oral tablet (16 sources) beta-Adrenergic Stalin Start: 4 End: 5 take 1 tablet by mouth once daily metoprolol succinate ER (TOPROL XL) 25 mg 24 hr tablet Indications: Essential hypertension, benign Take 1 tablet by mouth once daily. 30 tablet 5 09/14/2024 01/29/2025 Discontinued (Course of therapy completed) omeprazole 40 mg delayed release oral capsule (20 sources) Proton Pump Inhibitor Start: End: 5 take 1 capsule by mouth every other day Omeprazole 40 mg capsule,delayed release(DR/EC) Discontinued 40 mg PO .EOD January 01, 2025 9:15am March 03, 2025 7:59am Start: 01-01-2025 take 1 capsule by mo ut[facility] every other day Omeprazole 20 mg capsule,delayed release(DR/EC) Active 20 mg PO EVERY OTHER DAY January 01, 2025 12:00am Start: 02-02-2024 End: 11-16-2024 take 1 capsule by mouth every other day Omeprazole 20 mg capsule,delayed release(DR/EC) Active 20 mg PO EVERY OTHER DAY January 01, 2025 12:00am Start: 10-07-2020 End: 02-02-2024 take 1 capsule by mouth once daily before breakfast omeprazole (PRILOSEC) 20 mg capsule Indications: Gastroesophageal reflux disease without esophagitis take 1 capsule by mouth once daily 1/2 HOUR BEFORE BREAKFAST 90 capsule 3 11/28/2021 01/25/2023 Discontinued Start: 05-23-2019 End: 01-01-2025 take 1 capsule by mouth once daily Omeprazole 40 MG capsule,delayed release(DR/EC) Discontinued 40 mg PO DAILY May 23, 2019 12:00am January 01, 2025 9:16am Comment on above: take 1 capsule by mo [facility] once daily 1/2 HOUR BEFORE BREAKFAST pioglitazone 15 mg oral tablet (20 sources) [...] Comment on above: [facility] Poglitasone (3 sources) Start: End: 04-14-202 5 take 15 mg by mouth once daily Poglitasone Discontinued 15 mg PO DAILY May 23, 2019 12:00am January 01, 2025 9:14am tiZANidine 4 mg oral tablet (11 sources) [...] every 8 hours as needed (muscle spasms). traMADol hydrochloride 50 mg oral tablet (6 sources) Opioid Agonist Start: 5 End: take 1 tablet by mouth every six hours as needed for pain Tramadol 50 mg tablet Discontinued 50 mg PO EVERY 6 HOURS as needed for pain 12 3 March 03, 2025 12:00am March 07, 2025 10:43am Start: 02-11-2015 End: 02-27-2015 take 50-100 mg by mouth every six hours as needed for pain Tramadol 50 MG tablet Discontinued 50 - 100 mg PO EVERY 6 HOURS NEEDED as needed for PAIN 60 February 11, 2015 12:00am February 27, 2015 7:59am Problems Active Problems Problem Classification Problem Date Documented Date Episodic/Chronic Acute and unspecified renal failure (4 sources) Acute renal failure syndrome; Translations: [Acute kidney failure, unspecified] Onset: 10-08-2024 10-16-2024 Episodic Acute myocardial infarction (4 sources) Myocardial infarction; Translations: [Non-ST elevation (NSTEMI) myocardial infarction] Onset: 10-16-2024 10-16-2024 Chronic Acute posthemorrhagic anemia (20 sources) Acute posthemorrhagic anemia; Translations: [Acute posthemorrhagic anemia] Onset: 09-28-2017 Resolved: 09-29-2018 09-29-2018 Episodic Comment on above: due to hip fracture Anxiety disorders (3 sources) Anxiety; Translations: [Anxiety disorder, unspecified] 10-04-2024 Chronic Chronic kidney disease (12 sources) Chronic kidney disease stage 3B ; Translations: [Stage 3b chronic kidney disease (HCC)] Onset: 03-05-2025 Chronic Chronic kidney disease (3 sources) Chronic kidney disease; Translations: [Chronic kidney disease, stage 3b] Onset: 07-28-2024 Congestive heart failure; nonhypertensive (11 sources) Congestive heart failure; Translations: [Heart failure, unspecified] Onset: 10-16-2024 10-09-2024 Chronic Coronary atherosclerosis and other heart disease (7 sources) Coronary arteriosclerosis; Translations: [Atherosclerotic heart disease of samish coronary artery without angina pectoris] Onset: 01-01-2025 10-12-2024 Chronic Diabetes mellitus with complications (20 sources) Type 2 diabetes mellitus; Translations: [Type 2 diabetes mellitus with diabetic chronic kidney disease] Onset: 07-21-2005 09-15-2021 Chronic Diabetes mellitus without complication (13 sources) Type 2 diabetes mellitus without complication; Translations: [Type 2 diabetes mellitus without complications] Onset: 10-16-2024 Chronic Diabetes mellitus without complication (1 source) Diabetes mellitus without complication; Translations: [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 3 chronic kidney disease, without long-term current use of insulin (HCC)] Onset: 09-15-2021 Disorders of lipid metabolism (20 sources) Hyperlipidemia; Translations: [Hyperlipidemia, unspecified] Onset: 02-21-2016 02-21-2016 Chronic Esophageal disorders (20 sources) Gastroesophageal reflux disease; Translations: [Gastro-esophageal reflux disease without esophagitis] Onset: 09-28-2017 09-28-2017 Chronic Comment on above: occasional Essential hypertension (20 sources) Benign essential hypertension; Translations: [Essential (primary) hypertension] Onset: 07-30-2010 07-30-2010 Chronic Fluid and electrolyte disorders (3 sources) Dehydration; Translations: [Dehydration] 04-10-2019 Episodic Fracture of neck of femur (hip) (20 sources) Closed fracture of hip; Translations: [Fracture of unspecified part of neck of unspecified femur, initial encounter for closed fracture] Onset: 09-20-2014 Resolved: 03-22-2019 03-22-2019 Episodic Comment on above: Left Genitourinary symptoms and ill-defined conditions (20 sources) Genuine stress incontinence; Translations: [Stress incontinence (female) (male)] Onset: 09-28-2017 09-28-2017 Chronic Nausea and vomiting (1 source) Vomiting 06-19-2015 Episodic Nonmalignant breast conditions (20 sources) Fibrocystic disease of breast; Translations: [Diffuse cystic mastopathy of unspecified breast] Onset: 07-21-2005 07-21-2005 Chronic Nonspecific chest pain (3 sources) Finding of region of thorax; Translations: [Other chest pain] 10-04-2024 Episodic Nutritional deficiencies (20 sources) Vitamin D deficiency; [...] 10-09-2024 Episodic Other and ill-defined heart disease (6 sources) Diastolic dysfunction; Translations: [Other ill-defined heart diseases] 10-12-2024 Chronic Other and ill-defined heart disease (1 source) Other ill-defined heart diseases; Translations: [Other ill-defined heart diseases] Onset: 01-01-2025 Chronic Other connective tissue disease (5 sources) Pain of bilateral hands; Translations: [Pain in right hand] Episodic Other eye disorders (1 source) Dry eyes; Translations: [Dry eye syndrome of unspecified lacrimal gland] 09-14-2024 Episodic Other injuries and conditions due to external causes (3 sources) H/O: fracture; Translations: [Personal history of (healed) traumatic fracture] 02-08-2015 Episodic Other lower respiratory disease (6 sources) Dyspnea; Translations: [Shortness of breath] 10-04-2024 Episodic Other nervous system disorders (2 sources) Difficulty walking; Translations: [Difficulty in walking, not elsewhere classified] 03-07-2025 Chronic Other non-epithelial cancer of skin (6 sources) Malignant neoplasm of skin; Translations: [Unspecified malignant neoplasm of skin, unspecified] 04-10-2019 Episodic Comment on above: excised many years a go Other non-traumatic joint disorders (2 sources) Pain in right knee; Translations: [Pain in joint, lower leg] Episodic Other non-traumatic joint disorders (1 source) Hip pain; Translations: [Pain in left hip] 10-31-2021 Episodic Other screening for suspected conditions (not mental disorders or infectious disease) (11 sources) Patient encounter status; Translations: [Encounter for screening mammogram for malignant neoplasm of breast] Onset: 10-11-2024 Episodic Other skin disorders (2 sources) Skin lesion; Translations: [Disorder of the skin and subcutaneous tissue, unspecified] 01-29-2025 Episodic Other skin disorders (1 source) Disorder of the skin and subcutaneous tissue, unspecified; Translations: [Skin lesion] Onset: 01-29-2025 Episodic Residual codes; unclassified (1 source) Bilateral lower limb edema; Translations: [Localized edema] 09-14-2024 Episodic Residual codes; unclassified (3 sources) History of operation on musculoskeletal system; Translations: [Other specified postprocedural states] 04-10-2019 Episodic Comment on above: left hip, 02/08/15, [facility] Ramon Blanco [facility] Respiratory failure; insufficiency; arrest (adult) (5 sources) Acute respiratory failure; Translations: [Acute respiratory failure with hypoxia] Onset: 10-16-2024 10-04-2024 Episodic Screening and history of mental health and substance abuse codes (2 sources) Encounter for screening for depression; Translations: [Encounter for screening examination for other mental health and behavioral disorders] Onset: 01-29-2025 Episodic Spondylosis; intervertebral disc disorders; other back problems (20 sources) Degeneration of cervical intervertebral disc; Translations: [Other cervical disc degeneration, unspecified cervical region] Onset: 09-29-2018 09-29-2018 Chronic Spondylosis; intervertebral disc disorders; other back problems (20 sources) Lumbar disc prolapse with radiculopathy; Translations: [Intervertebral disc disorders with radiculopathy, lumbar region] Onset: 02-25-2011 02-25-2011 Episodic Unclassified (1 source) Acute midline low back pain without sciatica; Translations: [Acute midline low back pain without sciatica] Onset: 03-05-2025 Past or Other Problems Problem Classification Problem Date Documented Date Episodic/Chronic Abdominal pain (20 sources) Right upper quadrant pain; Translations: [Right upper quadrant pain] Onset: 06-29-2014 Resolved: 10-19-2014 10-19-2014 Episodic Allergic reactions (20 sources) Contact dermatitis; Translations: [Unspecified contact dermatitis, unspecified cause] Onset: 03-09-2013 Resolved: 03-22-2019 03-22-2019 Episodic Biliary tract disease (20 sources) Gallstone; Translations: [Calculus of gallbladder without cholecystitis without obstruction] Onset: 06-29-2014 Resolved: 10-19-2014 10-19-2014 Episodic Other aftercare (1 source) Encounter for follow-up [...] Onset: 08-08-2009 Resolved: 08-30-2015 08-30-2015 Episodic Other lower respiratory disease (1 source) Shortness of breath; Translations: [Shortness of breath] Onset: 10-16-2024 Episodic Other nervous system disorders (20 sources) Carpal tunnel syndrome; Translations: [Carpal tunnel syndrome, unspecified upper limb] Onset: 09-29-2013 Resolved: 03-22-2019 03-22-2019 Chronic Other skin disorders (20 sources) Eruption; Translations: [...] symptoms and signs] Onset: 08-30-2015 08-30-2015 Episodic Results Test Name Value Interpretation Reference Range Facility Absolute lymphocyte countOrd ered By: Chin Hawthorne on 03-08-2025 Lymphocytes Auto (Unsp spec) [#/Vol] 1.51 10*3/uL 0.83-4.51 [facility] Absolute neutrophil countOrd ered By: Chin Hawthorne on 03-08-2025 Neutrophils (Bld) [#/Vol] 8.0 10*3/uL High 2.0-7.7 [facility] Anion gap in Serum or Plasma Ordered By: Chni Hawthorne on 03-08-2025 Anion gap [Moles/Vol] 11 mmol/L 5-15 [facility] Automated lymphocyte count a s percentage of total leukocytesOrdered By: Chin Hawthorne on 03-08-2025 Lymphocytes/100 WBC Auto (Unsp spec) 14.4 % Low 19-41 [facility] BUN/creatinine ratioOrdered By: Chin Hawthorne on 03-08-2025 Urea nitrogen/Creatinine [Mass ratio] 29.4 mg/mg High 10-20 [facility] Basophil percentageOrdered B y: Chin Hawthorne on 03-08-2025 Basophils/100 WBC (Bld) 0.4 % 0-1 [facility] Carbon dioxide, total [Moles /volume] in Central venous bloodOrdered By: Chin Hawthorne on 03-08-2025 CO2 [Moles/Vol] 22.2 mmol/L 21.0-32.0 [facility] Chloride assayOrdered By: Heidi Hawthorne on 03-08-2025 Chloride [Moles/Vol] 104 mmol/L 98-108 [facility] Eosinophil percentageOrdered By: Chin Hawthorne on 03-08-2025 Eosinophils/100 WBC (Bld) 0.1 % 0-5 [facility] Erythrocyte distribution wid th ratioOrdered By: Chin Hawthorne on 03-08-2025 Erythrocyte distribution width (RBC) [Ratio] 12.9 % 11.6-14.6 [facility] Erythrocyte distribution wid th standard deviationOrdered By: Chin Hawthorne on 03-08-2025 Erythrocyte distribution width (RBC) [Ratio] 42.4 fl 35.1-43.9 [facility] Glomerular filtration rate ( GFR) estimation/1.73 sq m using serum, plasma, or whole bOrdered By: Chin Hawthorne on 03-08-2025 GFR/1.73 sq M.predicted among non-blacks MDRD (S/P/Bld) [Vol rate/Area] 38 mL/min/{1.73_m2} Low >60 [facility] Comment on above: mL/min/1.73m2 CKD-EP I Creatinine Equation (2020) [facility] deOrdered By: Chin Hawthorne on 03-08-2025 Glucose [Mass/Vol] 366 mg/dL High 74-106 [facility] Comment on above: MANAGEMENT OF PATIEN T CARE PER NURSING PROTOCOL Hematocrit Auto (Bld) [Volum e fraction]Ordered By: Chin Hawthorne on 03-08-2025 Hematocrit (Bld) [Volume fraction] 29.4 % Low 37-47 [facility] Hemoglobin measurementOrdere d By: Chin Hawthorne on 03-08-2025 Hemoglobin (Bld) [Mass/Vol] 9.5 g/dL Low 12.0-15.0 [facility] Immature granulocytes/100 WB C Auto (Bld)Ordered By: Chin Hawthorne on 03-08-2025 Immature granulocytes/100 WBC (Bld) 0.500 % 0.0-0.9 [facility] Comment on above: IG% - Immature Granu locytes (promyelocytes, myelocytes and metamyelocytes) > 1% indicates that a LEFT SHIFT is Present. MCV (mean corpuscular volume ) determinationOrdered By: Chin Hawthorne on 03-08-2025 MCV (RBC) [Entitic vol] 91.3 fL 81-99 [facility] Mean corpuscular hemoglobin (MCH) determinationOrdered By: Chin Hawthorne on 03-08-2025 MCH (RBC) [Entitic mass] 29.5 pg 27.0-32.0 [facility] Mean corpuscular hemoglobin concentration (MCHC) determinationOrdered By: Chin Hawthorne on 03-08-2025 MCHC (RBC) [Mass/Vol] 32.3 g/dL 32-36 [facility] Mean platelet volume determi nationOrdered By: Chin Hawthorne on 03-08-2025 Platelet mean volume (Bld) [Entitic vol] 9.1 fL 6.2-12.0 [facility] Monocyte percentageOrdered B y: Chin Hawthorne on 03-08-2025 Monocytes/100 WBC (Bld) 8.3 % 0-10 [facility] Neutrophil percentageOrdered By: Chin Hawthorne on 03-08-2025 Neutrophils/100 WBC (Bld) 76.3 % High 47-70 [facility] Nucleated red blood cell per centageOrdered By: Chin Hawthorne on 03-08-2025 Nucleated RBC/100 WBC (Bld) [Ratio] 0 % 0-5 [facility] Platelet countOrdered By: Heidi Hawthorne on 03-08-2025 Platelets (Bld) [#/Vol] 294 10*3/uL 150-450 [facility] Potassium measurement (mass/ volume)Ordered By: Chin Hawthorne on 03-08-2025 Potassium (Unsp spec) [Mass/Vol] 4.5 mmol/L 3.3-5.1 [facility] RBC Auto (Bld) [#/Vol]Ordere d By: Chin Hawthorne on 03-08-2025 RBC (Bld) [#/Vol] 3.22 10*6/uL Low 4.2-5.4 [facility] Serum creatinine measurement (mass/volume)Ordered By: Chin Hawthorne on 03-08-2025 Creatinine [Mass/Vol] 1.34 mg/dL High 0.70-1.20 [facility] Serum glucose measurement (m ass/volume)Ordered By: Chin Hawthorne on 03-08-2025 Glucose [Mass/Vol] 112 mg/dL High 70-99 [facility] Serum or plasma calcium dolores urement (mass/volume)Ordered By: Chin Hawthorne on 03-08-2025 Calcium [Mass/Vol] 8.9 mg/dL 7.6-11.0 [facility] Serum or plasma urea nitroge n measurement (mass/volume)Ordered By: Chin Hawthorne on 03-08-2025 Urea nitrogen [Mass/Vol] 39 mg/dL High 4-19 [facility] Sodium levelOrdered By: Braxton Hawthorne on 03-08-2025 Sodium [Moles/Vol] 137 mmol/L 133-145 [facility] White blood cell (WBC) count Ordered By: Chin Hawthorne on 03-08-2025 WBC (Bld) [#/Vol] 10.5 10*3/uL 4.4-11.0 [facility] Absolute lymphocyte countOrd ered By: Valeria Henry on 03-07-2025 Lymphocytes Auto (Unsp spec) [#/Vol] 0.78 10*3/uL Low 0.83-4.51 [facility] Absolute neutrophil countOrd ered By: Remus Henry on 03-07-2025 Neutrophils (Bld) [#/Vol] 9.8 10*3/uL High 2.0-7.7 [facility] Anion gap in Serum or Plasma Ordered By: Valeria Henry on 03-07-2025 Anion gap [Moles/Vol] 13 mmol/L 5-15 [facility] Automated lymphocyte count a s percentage of total leukocytesOrdered By: Josius Carl on 03-07-2025 Lymphocytes/100 WBC Auto (Unsp spec) 6.9 % Low 19-41 [facility] BUN/creatinine ratioOrdered By: Remus Ungrenu on 03-07-2025 Urea nitrogen/Creatinine [Mass ratio] 27.1 mg/mg High 10-20 [facility] Basophil percentageOrdered B y: Remus Ungrenu on 03-07-2025 Basophils/100 WBC (Bld) 0.4 % 0-1 [facility] CNPNon 03-07-2025 CNPN Telephone ([facility]) DENNISLUCILLE FLORES ([id number]) 1935 F Date Time Provider Department 03/07/25 ALLIE STANTON [facility] During your visit today, we recorded the following information about you: Marlena Hampton RN 03/07/2025 8:56 AM Signed Patient's daughter Deanna calls and states that patient's back pain has gotten worse. Patient cannot sit or lay down she has a lot of pain. Daughter reports that patient's bowels are not working correctly. Deanna asking about patient going to rehab for the back pain since patient has been having hard time walking due to pain. Advised Deanna that if patient's back pain is getting that severe then she needs to be evaluated in ER again. Hospital then can evaluate her for Rehab. Deanna voices understanding. YUDI Parikh Mark D, MD 03/07/2025 4:50 PM Signed I agree with the advice given Allie Stanton MD Allergies As of Date: 03/07/2025 Noted Allergy Reaction METFORMIN 03/13/2013 6 - Diarrhea MORPHINE 02/14/2016 8 - GI Upset OXYCODONE 02/14/2016 8 - GI Upset PREVACID (LANSOPRAZOLE) 07/20/2005 Date Reviewed: 03/05/2025 Reviewed by: Jenifer Leon MA - Fully Assessed Reason for Visit: Patient Update [1234] Prescriptions as of 03/07/2025 - predniSONE (DELTASONE) 10 mg tablet Take 4 tabs daily x5 days, then 2 tabs daily for 5 days, then 1 tab daily for 5 days. - orphenadrine ER (NORFLEX) 100 mg tablet Take 1 tablet by mouth two times a day. - blood sugar diagnostic [...] Insulin: No, Brand covered by insurance - MULTIVITS,TH W-CA,FE,OTH MIN (MULTIVITAMIN AND MINERAL ORAL) Take 1 tablet by mouth once daily. - lancets(FREESTYLE LANCETS) use daily - blood glucose control highANDlow(FREESTYLE CONTROL SOLN) use as directed Meds Comments as of 05/09/2019: Problem List As Of Date 03/07/2025 Noted Resolved Controlled type 2 diabetes mellitus [...] 09/28/2017 DDD (degenerative disc disease), cervical [M50.*09/29/2018 Stage 3b chronic kidney disease (HCC) [N18.32] 03/05/2025 Encounter Status:Closed by ALLIE STANTON on 03/07/25 Normal [facility] Carbon dioxide, total [Moles /volume] in Central venous bloodOrdered By: Valeria Henry on 03-07-2025 CO2 [Moles/Vol] 20.3 mmol/L Low 21.0-32.0 [facility] Chloride assayOrdered By: Gerda Henry on 03-07-2025 Chloride [Moles/Vol] 102 mmol/L 98-108 [facility] Eosinophil percentageOrdered By: Valeria Henry on 03-07-2025 Eosinophils/100 WBC (Bld) 0.3 % 0-5 [facility] Erythrocyte distribution wid th ratioOrdered By: Valeria Henry on 03-07-2025 Erythrocyte distribution width (RBC) [Ratio] 13.0 % 11.6-14.6 [facility] Erythrocyte distribution wid th standard deviationOrdered By: Valeria Henry on 03-07-2025 Erythrocyte distribution width (RBC) [Ratio] 42.3 fl 35.1-43.9 [facility] Glomerular filtration rate ( GFR) estimation/1.73 sq m using serum, plasma, or whole bOrdered By: Valeria Henry on 03-07-2025 GFR/1.73 sq M.predicted among non-blacks MDRD (S/P/Bld) [Vol rate/Area] 38 mL/min/{1.73_m2} Low >60 [facility] Comment on above: mL/min/1.73m2 CKD-EP I Creatinine Equation (2020) Hematocrit Auto (Bld) [Volum e fraction]Ordered By: Valeria Henry on 03-07-2025 Hematocrit (Bld) [Volume fraction] 31.0 % Low 37-47 [facility] Hemoglobin measurementOrdere d By: Valeria Henry on 03-07-2025 Hemoglobin (Bld) [Mass/Vol] 10.2 g/dL Low 12.0-15.0 [facility] Immature granulocytes/100 WB C Auto (Bld)Ordered By: Valeria Henry on 03-07-2025 Immature granulocytes/100 WBC (Bld) 0.600 % 0.0-0.9 [facility] Comment on above: IG% - Immature Granu locytes (promyelocytes, myelocytes and metamyelocytes) > 1% indicates that a LEFT SHIFT is Present. MCV (mean corpuscular volume ) determinationOrdered By: Valeria Henry on 03-07-2025 MCV (RBC) [Entitic vol] 89.1 fL 81-99 [facility] Magnetic resonance imaging r eportOrdered By: Fredy Bernabe on 03-07-2025 Study report [facility] Imaging Services [address] [place], [place] [id number] Spine Lumbar (Routine) MR#: [id number] Acct: [id number] Name: LUCILLE THURMAN Rep #: [id number] : 1935 F 89 From: Pillo Bernabe MD PCP: Dr. Allie Stanton MD Status: AD M DELORIS Study:Spine Lumbar (Routine) Date of Exam: 03/07/25 Exam# [id number] Ordering Dr: Chin Hawthorne MD PROCEDURE: SPINE LUMBAR (ROUTINE) 03/07/2025 REASON FOR EXAM: WORSENING BACK PAIN LAST 2 WEEKS AFTER FALL TECHNIQUE: SPINE LUMBAR (ROUTINE) FINDINGS: Normal lumbar vertebral body height. Grade 1 degenerative subluxation of L4 upon L5. Normal conus. L1-L2 unremarkable. At L2-3, mild canal narrowing from slight concentric annular bulging and facet arthrosis. At L3-4 mild-moderate spinal stenosis is present secondary to the same factors. At L4-5, moderate circumferential spinal stenosis from facet arthrosis, ligamentous hypertrophy and broad-based disc bulging. Right foraminal protrusion compresses the right L4 nerve. Modic type 1 changes are present at L4-5. At L5-S1, mild canal narrowing from annular bulge. Asymmetric moderate left L5 foraminal narrowing. Bulging disc abuts the undersurface of the L5 nerve MRI/Spine Lumbar (Routine) IMPRESSION: 1. Moderate spinal stenosis at L4-5 with right L4 nerve compression. 2. [id number] canal narrowing at L3-4. 3. Asymmetric left L5 foraminal narrowing with bulging disc abutting the nerve within the neural foramen Reading Location: [facility] CC: Dr. Allie Stanton MD; Dr. Chin Hawthorne MD ~ [facility] Manager: Signed [facility] Mean corpuscular hemoglobin (MCH) determinationOrdered By: Valeria Henry on 03-07-2025 MCH (RBC) [Entitic mass] 29.3 pg 27.0-32.0 [facility] Mean corpuscular hemoglobin concentration (MCHC) determinationOrdered By: Valeria Henry on 03-07-2025 MCHC (RBC) [Mass/Vol] 32.9 g/dL 32-36 [facility] Mean platelet volume determi nationOrdered By: Valeria Henry on 03-07-2025 Platelet mean volume (Bld) [Entitic vol] 8.9 fL 6.2-12.0 [facility] Monocyte percentageOrdered B y: Valeria Henry on 03-07-2025 Monocytes/100 WBC (Bld) 5.2 % 0-10 [facility] Neutrophil percentageOrdered By: Valeria Henry on 03-07-2025 Neutrophils/100 WBC (Bld) 86.6 % High 47-70 [facility] Nucleated red blood cell per centageOrdered By: Valeria Henry on 03-07-2025 Nucleated RBC/100 WBC (Bld) [Ratio] 0 % 0-5 [facility] Platelet countOrdered By: Gerda Henry on 03-07-2025 Platelets (Bld) [#/Vol] 291 10*3/uL 150-450 [facility] Potassium measurement (mass/ volume)Ordered By: Valeria Henry on 03-07-2025 Potassium (Unsp spec) [Mass/Vol] 4.4 mmol/L 3.3-5.1 [facility] RBC Auto (Bld) [#/Vol]Ordere d By: Valeria Henry on 03-07-2025 RBC (Bld) [#/Vol] 3.48 10*6/uL Low 4.2-5.4 [facility] Serum creatinine measurement (mass/volume)Ordered By: Valeria Henry on 03-07-2025 Creatinine [Mass/Vol] 1.33 mg/dL High 0.70-1.20 [facility] Serum glucose measurement (m ass/volume)Ordered By: Valeria Henry on 03-07-2025 Glucose [Mass/Vol] 207 mg/dL High 70-99 [facility] Serum or plasma calcium dolores urement (mass/volume)Ordered By: Valeria Henry on 03-07-2025 Calcium [Mass/Vol] 9.2 mg/dL 7.6-11.0 [facility] Serum or plasma urea nitroge n measurement (mass/volume)Ordered By: Valeria Henry on 03-07-2025 Urea nitrogen [Mass/Vol] 36 mg/dL High 4-19 [facility] Sodium levelOrdered By: Pablo Henry on 03-07-2025 Sodium [Moles/Vol] 135 mmol/L 133-145 [facility] White blood cell (WBC) count Ordered By: Valeria Henry on 03-07-2025 WBC (Bld) [#/Vol] 11.3 10*3/uL High 4.4-11.0 [facility] CNOVon 03-05-2025 CNOV Office Visit ([facility]AMPWS ) DENNISLUCILLE FLORES ([id number]) 1935 F Date Time Provider Department 03/05/25 5:00 PM [facility] During your visit today, we recorded the following information about you: Pulse Respiration Blood pressure Weight 63/minute 14/minute 120/72 69.9 kg Allie Stanton MD 03/05/2025 6:46 PM Signed Chief Complaint Patient presents with: Back Pain: lower HPI Lucille S Baltazarseble is a 89 year old female who presents here today for back pain. Here with her son in law Michael and daughter Veronica. Veronica lives with her. Deanna, other daughter is SPENCER. Pt c/o lower back pain x 2 weeks, thinks she did too much as she was in process of moving. Worsened a week ago causing difficulty walking. Was using heat but that didn't help. Has not tried ice. She had an OTC pain patch on but it didn't help. States that if she sits too long she has tingling in the legs which resolves with taking a few steps. Pain is worse getting in and out of bed and going from sitting to standing. Pain with walking. Some trouble getting comfortable when laying down due to pain. Pain today is 9/10, achy, x 2 weeks constant. Denies any injury to the back. Went to [facility] ER on 03/03/25 and advised to take Tylenol and given Tramadol 50 mg 1 pill every 6 hours prn. She didn't feel that the Tramadol or Tylenol are helping. She was given a muscle relaxant while in ER and that helped some. Past medical history, appointments, medications, allergies reviewed. 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 Dx: Type 2 DM - Controlled E11.9 Insulin: No losartan (COZAAR) 100 mg tablet Take 100 mg by mouth once daily. isosorbide mononitrate ER (IMDUR) 30 mg 24 hr tablet Take 30 mg by mouth once daily. furosemide (LASIX) 20 mg tablet Take 1 tablet by mouth once daily. omeprazole (PRILOSEC) 20 mg capsule take 1 capsule by mouth every other day 1/2 HOUR BEFORE BREAKFAST amLODIPine (NORVASC) 5 mg tablet Take 1 tablet by mouth once daily. carvedilol (COREG) 3.125 mg tablet Take 3.125 mg by mouth two times a day with meals. clopidogrel (PLAVIX) 75 mg tablet Take 75 mg by mouth once daily. JARDIANCE 10 mg tablet Take 10 mg by mouth daily with breakfast. aspirin, enteric coated (ASPIRIN, ENTERIC COATED) 81 mg EC tablet Take 81 mg by mouth once daily. atorvastatin (LIPITOR) 80 mg tablet Take 1 tablet by mouth daily at bedtime. For cholesterol. povidone, P (more content not included)... Normal [facility] Bilirubin Test strip Ql (U)O rdered By: Julio Pickens on 03-03-2025 Bilirubin Ql (U) Negative Negative [facility] Emergency Department Summary on 03-03-2025 Emergency Department Summary [facility] Medical Records Department [address] [place] [address] Emergency Department Summary 03/03/25 MR#: [id number] Acct: [id number] Name: LUCILLE THURMAN Rep #: [id number] : 1935 89 From: Julio Pickens MD PCP: Dr. Allie Stanton MD Status:REG ER Location: ED HPI History of Present Illness Chief Complaint: Back Narrative Narrative: 89-year-old female presents with her daughter and son-in-law because of low back pain that she has had for weeks. They states that recently she moved and is now living independently with a relative. She states that she is having low back pain intermittently for the last few weeks. Over the last few days, it is worse especially at nighttime. She is taking Tylenol without relief. She denies any fevers or chills, no nausea or vomiting. Pain radiates down to her left foot and is mainly on the left side and in her low back. No recent falls. No loss of bowel or bladder but she does states she has urinary frequency. She presents because of the increased pain in her low back radiating down to her left foot that is worse with walking and movement. [facility] Medical History Chronic kidney disease, stage 3b Acute diastolic (congestive) heart failure NSTEMI (non-ST elevated myocardial infarction) Anemia Diabetes Non-smoker Skin cancer Dehydration GERD (gastroesophageal reflux disease) Acute blood loss anemia Closed left hip fracture HTN (hypertension) Hypercholesteremia Type II diabetes mellitus Home Medications ???Medication ???Instructions ???Recorded ???Last Taken ???Type multivitamin with folic acid 400 1 tab PO DAILYCM vitamin #30 tabs 02/11/15 03/02/25 Rx mcg tablet blood sugar diagnostic (True 10/04/24 Unknown History Metrix Glucose Test Strip) aspirin 81 mg tablet,delayed 81 mg PO BREAKFAST 30 days #30 tab s 10/08/24 03/02/25 Rx release atorvastatin 40 mg tablet 40 mg PO QHS #90 tabs 10/12/24 Rx carvedilol 3.125 mg tablet 3.125 mg PO BID 30 days #180 tabs 10/12/24 03/02/25 Rx clopidogrel 75 mg tablet 75 mg PO DAILY 30 days #90 tabs 03/02/25 Rx empagliflozin 10 mg tablet 10 mg PO DAILY 30 days #90 tabs 03/02/25 Rx (Jardiance) nitroglycerin 0.4 mg sublingual 0.4 mg sublingual Q5-15M PRN chest 01/01/25 Unknown Rx tablet pain #20 tabs omeprazole 20 mg capsule,delayed 20 mg PO QODAY 01/01/25 03/02/25 H istory release amlodipine 10 mg tablet 10 mg PO DAILY 03/03/25 03/02/25 H istory furosemide 20 mg tablet 20 mg PO DAILY 03/03/25 03/02/25 H istory isosorbide mononitrate 30 mg 30 mg PO DAILY awaiting mail in 03/02/25 History tablet,extended release 24 hr RX, pt out of med losartan 100 mg tablet 100 mg PO DAILY 03/03/25 03/02/25 History tramadol 50 mg tablet 50 mg PO Q6H PRN pain 3 days #12 0 03/03/25 Unknown Rx tabs Allergy/AdvReac Type Severity Reaction Status Date / Time metformin Allergy Hives Verified 03/03/25 06:54 morphine AdvReac Nausea Verified 03/03/25 06:54 oxycodone (Oxycodone) AdvReac Nausea Verified 03/03/25 06:54 Family History Sister Breast cancer Colon cancer [...] not use ROS ROS ED ROS Narrative Review of systems positive for low back pain, initially midline but now more left-sided with radiation to left foot. No fevers or chills, no nausea or vomiting. No loss of bowel or bladder. No saddle anesthesia. Worse with movement and walking. EXAM Physical Exam Narrative Exam Narrative: Afebrile. Vital signs noted. Nontoxic-appearing. Cardiovascular examination regular rate and rhythm. Lungs are clear to auscultation bilaterally. Abdomen is soft, nontender, with positive bowel sounds. No vertebral point tenderness or bony step-off of the lumbar spine. Mild tenderness to palpation left sciatic notch. Neuro vastly intact bilateral lower extremities with patellar DTRs equal and symmetric. EHL intact bilaterally. Positive pain in the low back with raising of left leg but no cross symptoms. Const Vital Signs: 03/03/25 06:54 03/03/25 06:58 Temperature 98.0 F Temperature Source Oral Pulse Rate 88 Respiratory Rate 18 Respiratory Effort Normal Non-Labored Res (more content not included)... Normal [facility] Ketones Test strip Ql (U)Ord ered By: Julio Pickens on 03-03-2025 Ketones Ql (U) Negative Negative [facility] Microscopic analysis of urin e for red blood cells (RBC)Ordered By: Julio Pickens on 03-03-2025 Microscopic analysis of urine for red blood cells (RBC) 0 SEEN /hpf 0-5 [facility] Mucus LM Ql (Urine sed)Order ed By: Julio Pickens on 03-03-2025 Mucus Ql (Urine sed) 0 SEEN /hpf [facility] Nitrite Test strip Ql (U)Ord ered By: Julio Pickens on 03-03-2025 Nitrite Ql (U) Negative Negative [facility] Protein Test strip Ql (U)Ord ered By: Julio Pickens on 03-03-2025 Protein Ql (U) 30 mg/dl High Negative [facility] Spine Lumbar without Contras ton 03-03-2025 Spine Lumbar without Contrast [facility] Services [address] [place], [place] [id number] Spine Lumbar without Contrast MR#: [id number] Acct: [id number] Name: LUCILLE THURMAN Rep #: [id number] : 1935 F 89 From: Franck Collins DO PCP: Dr. Allie Stanton MD Status: REG ER Study: Spine Lumbar without Contrast Date of Exam: Exam# [id number] Ordering Dr: Julio Pickens MD PROCEDURE: SPINE LUMBAR WITHOUT CONTRAST 03/03/2025 REASON FOR EXAM: PAIN TECHNIQUE: SPINE LUMBAR WITHOUT CONTRAST Coronal and Sagittal reconstruction series were provided. One or more dose reduction techniques were used (e.g., Automated exposure control, adjustment of the mA and/or kV according to patient size, use of iterative reconstruction technique RADIATION DOSE SUMMARY: CTDlvol: 16.31 MGy DLP: 588.18 mGycm FINDINGS: Vertebrae: Normal height. Multilevel loss of disc height endplate spondylosis. Degenerative disc disease levels vacuum disc disease at L4-L5 with endplate disc cirrhosis. Fairly well preserved AP alignment. Alignment: Mild right convex scoliosis No bony encroachment on the central canal or neural foramina. Facet joint arthrosis CT/Spine Lumbar without Contrast IMPRESSION: No acute process. Multilevel degenerative disc disease, endplate spondylosis, fairly well rib AP alignment Reading Location: [facility] CC: Dr. Julio Pickens MD; Dr. Allie Stanton MD Clearance Center Manager: Signed Normal [facility] Squamous epithelial cells de tection in urine sediment by light microscopyOrdered By: Julio Pickens on 03-03-2025 Epithelial cells.squamous LM Ql (Urine sed) 0 SEEN /hpf - [facility] Urinalysis, Completeon 03-03 BACTERIA 0 SEEN Normal None Seen [facility] Comment on above: Order Comment: CLEAN CATCH Performed By: #### L 400.0001 #### [facility] Laboratory [address] [place], [address] EPI,SQUAMOUS 0 SEEN Normal - [facility] Comment on above: Order Comment: CLEAN CATCH Performed By: #### L 400.0001 #### [facility] [address] [place], [address] Mucus Ql (Urine sed) 0 SEEN Normal [facility] Comment on above: Order Comment: CLEAN CATCH Performed By: #### L 400.0001 #### [facility] [address] [place], [address] RBC 0 SEEN Normal 0-5 [facility] Comment on above: Order Comment: CLEAN CATCH Performed By: #### L 400.0001 #### [facility] [address] [place], [address] WBC 0 SEEN Normal 0-5 [facility] Comment on above: Order Comment: CLEAN CATCH Performed By: #### L 400.0001 #### [facility] [address] [place], [address] Urine clarityOrdered By: Muriel Pickens on 03-03-2025 Clarity (U) Clear Clear [facility] Urine color determinationOrd ered By: Juloi Pickens on 03-03-2025 Color (U) Yellow Yellow [facility] Urine glucose detectionOrder ed By: Julio Pickens on 03-03-2025 Glucose Ql (U) 250 mg/dl High Normal [facility] Urine leukocyte esterase det ection by dipstickOrdered By: Julio Pickens on 03-03-2025 Leukocyte esterase Test strip Ql (U) Negative Negative [facility] Urine pHOrdered By: Julio cooper on 03-03-2025 pH (U) 7.0 [pH] 5.0 - 8.0 [facility] Urine sediment bacteria coun t by microscopy (number/high power field)Ordered By: Julio Pickens on 03-03-2025 Bacteria LM.HPF (Urine sed) [#/Area] 0 /[HPF] None Seen [facility] Urine specific gravity measu rementOrdered By: Julio Pickens on 03-03-2025 Specific gravity (U) [Rel density] 1.005 1.002-1.030 [facility] Urine urobilinogen measureme ntOrdered By: Julio Pickens on 03-03-2025 Urobilinogen Ql (U) Normal mg/dl Normal [facility] White blood cell countOrdere d By: Julio Pickens on 03-03-2025 White blood cell count 0 SEEN /hpf 0-5 [facility] CNOVon 01-29-2025 CN Office Visit ([facility] ) LUCILLE THURMAN ([id number]) 1935 F Date Time Provider Department 01/29/25 9:00 [facility] your visit today, we recorded the following information about you: Pulse Respiration Blood pressure Weight 67/minute 16/minute 136/75 70.3 kg Imtiaz Hodge APRN.CNP 01/30/2025 11:37 AM Addendum Lucille Thurman is [...] history review Reviewed and updated problem list, medical/surgical/famil y/social history, medications, and allergies. Opioid use review [...] BMI 27.46 kg/m? Vision Screening: Follows with optometry/ophthalmolog y Assessment/Plan Medicare annual wellness visit, subsequent (Z00.00) - Counseled on healthy diet and regular exercise - Fall avoidance information provided - Personalized prevention plan provided Chief Complaint Patient presents with: Medicare Wellness Exam: 6 mo HPI Lucille Thurman is a 89 year old female who presents here today for above reason. Lucilel is a 89-year-old female, with a history [...] also taking Actos 15 mg, but her can feeder advised discontinuation due to potential renal effects. [...] edema Lat (more content not included)... Normal [facility] Basic metabolic 2000 panelon 01-23-2025 Anion gap [Moles/Vol] 12 mmol/L Normal 8-15 [facility] Comment on above: Order Comment: Speci men Type: BLOOD SPECIMEN Ordering Facility: [facility] Address: [address] [place] [address] Performed By: #### 5 5454-3 #### [facility] CLIA [id number] [address] [place] [address] [place] Calcium [Mass/Vol] 9.9 mg/dL Normal 8.5-10.2 [facility] Comment on above: Order Comment: Speci men Type: BLOOD SPECIMEN Ordering Facility: [facility] Address: [address] [place] [address] Performed By: #### 5 5454-3 #### [facility] CLIA [id number] [address] [place] [address] [place] Chloride [Moles/Vol] 104 mmol/L Normal 98-107 [place] Comment on above: Order Comment: Speci men Type: BLOOD SPECIMEN Ordering Facility: [facility] Address: [address] [place] [address] Performed By: #### 5 5454-3 #### [facility] CLIA [id number] [address] [place] [address] [place] CO2 [Moles/Vol] 23 mmol/L Normal 22-30 [facility] Comment on above: Order Comment: Speci men Type: BLOOD SPECIMEN Ordering Facility: [facility] Address: [address] [place] [address] Performed By: #### 5 5454-3 #### [facility] CLIA [id number] [address] [place] [address] [place] Creatinine [Mass/Vol] 1.24 mg/dL High 0.58-0.96 [facility] Comment on above: Order Comment: Speci men Type: BLOOD SPECIMEN Ordering Facility: [facility] Address: [address] [place] [address] Performed By: #### 5 5454-3 #### [facility] CLIA [id number] [address] [place] [address] [place] Creatinine and Glomerular filtration rate.predicted panel (S/P/Bld) 42 mL/min/1.73m??? Low >=60 [facility] Comment on above: Order Comment: Speci men Type: BLOOD SPECIMEN Ordering Facility: [facility] Address: [address] [place] [address] Result Comment: Mami mated Glomerular Filtration Rate [...] accurately reflect actual GFR. Performed By: #### 5 5454-3 #### [facility] CLIA [id number] [address] [place] [address] [place] Glucose [Mass/Vol] 140 mg/dL High 74-99 [facility] Comment on above: Order Comment: Alfredo shay Type: BLOOD SPECIMEN Ordering Facility: [facility] Address: [address] [place] [address] Result Comment: The Chinese Diabetes Association (ADA) provides guidance for cutoff [...] Standards of Medical Care in Diabetes 2016, Chinese Diabetes Association. Diabetes Care. 2016.39(Suppl 1). Performed By: #### 5 5454-3 #### [facility] CLIA [id number] [address] [place] [address] [place] Potassium [Moles/Vol] 4.6 mmol/L Normal 3.7-5.1 [facility] Comment on above: Order Comment: Alfredo shay Type: BLOOD SPECIMEN Ordering Facility: [facility] Address: [address] [place] [address] Performed By: #### 5 5454-3 #### [facility] CLIA [id number] [facility] [place] [address] [place] Sodium [Moles/Vol] 139 mmol/L Normal 136-144 [facility] Comment on above: Order Comment: Speci men Type: BLOOD SPECIMEN Ordering Facility: [facility] Address: [address] [place] [address] Performed By: #### 5 5454-3 #### [facility] CLIA [id number] [address] [place] [address] [place] Urea nitrogen [Mass/Vol] 30 mg/dL High 7-21 [facility] Comment on above: Order Comment: Speci men Type: BLOOD SPECIMEN Ordering Facility: [facility] Address: [address] [place] [address] Performed By: #### 5 5454-3 #### [facility] CLIA [id number] [address] [place] [address] [place] Comprehensive metabolic 2000 panelon 01-23-2025 Albumin [Mass/Vol] 4.3 g/dL Normal 3.9-4.9 [facility] Comment on above: Order Comment: Speci men Type: BLOOD SPECIMEN Ordering Facility: [facility] Address: [address] [place] [address] Performed By: #### 5 5454-3 #### [facility] CLIA [id number] [address] [place] [address] [place] ALP [Catalytic activity/Vol] 83 U/L Normal 34-123 [facility] Comment on above: Order Comment: Speci men Type: BLOOD SPECIMEN Ordering Facility: [facility] Address: [address] [place] [address] Performed By: #### 5 5454-3 #### [facility] CLIA [id number] [address] [place] [address] [place] ALT [Catalytic activity/Vol] 16 U/L Normal 7-38 [facility] Comment on above: Order Comment: Speci men Type: BLOOD SPECIMEN Ordering Facility: [facility] Address: [address] [place] [address] Performed By: #### 5 5454-3 #### [facility] CLIA [id number] [address] [place], [place] [address] [place] Anion gap [Moles/Vol] 12 mmol/L Normal 8-15 [facility] Comment on above: Order Comment: Speci men Type: BLOOD SPECIMEN Ordering Facility: [facility] Address: [address] [place] [address] Performed By: #### 5 5454-3 #### [facility] CLIA [id number] [address] [place] [address] [place] AST [Catalytic activity/Vol] 24 U/L Normal 13-35 [facility] Comment on above: Order Comment: Speci men Type: BLOOD SPECIMEN Ordering Facility: [facility] Address: [address] [place] [address] Performed By: #### 5 5454-3 #### [facility] CLIA [id number] [address] [place] [address] [place] Bilirubin [Mass/Vol] 0.4 mg/dL Normal 0.2-1.3 [place] Comment on above: Order Comment: Speci men Type: BLOOD SPECIMEN Ordering Facility: [facility] Address: [address] [place] [address] Performed By: #### 5 5454-3 #### [facility] CLIA [id number] [address] [place] [address] [place] Calcium [Mass/Vol] 9.7 mg/dL Normal 8.5-10.2 [facility] Comment on above: Order Comment: Speci men Type: BLOOD SPECIMEN Ordering Facility: [facility] Address: [address] [place] [address] Performed By: #### 5 5454-3 #### [facility] CLIA [id number] [address] [place] [address] [place] Chloride [Moles/Vol] 104 mmol/L Normal 98-107 [place] Comment on above: Order Comment: Speci men Type: BLOOD SPECIMEN Ordering Facility: [facility] Address: [address] [place] [address] Performed By: #### 5 5454-3 #### [facility] CLIA [id number] [address] [place] [address] [place] CO2 [Moles/Vol] 23 mmol/L Normal 22-30 [facility] Comment on above: Order Comment: Speci men Type: BLOOD SPECIMEN Ordering Facility: [facility] Address: [address] [place] [address] Performed By: #### 5 5454-3 #### [facility] CLIA [id number] [address] [place] [address] [place] Creatinine [Mass/Vol] 1.24 mg/dL High 0.58-0.96 [facility] Comment on above: Order Comment: Speci men Type: BLOOD SPECIMEN Ordering Facility: [facility] Address: [address] [place] [address] Performed By: #### 5 5454-3 #### [facility] CLIA [id number] [address] [place] [address] [place] Creatinine and Glomerular filtration rate.predicted panel (S/P/Bld) 42 mL/min/1.73m??? Low >=60 [facility] Comment on above: Order Comment: Speci men Type: BLOOD SPECIMEN Ordering Facility: [facility] Address: [address] [place] [address] Result Comment: Mami mated Glomerular Filtration Rate [...] accurately reflect actual GFR. Performed By: #### 5 5454-3 #### [facility] CLIA [id number] [address] [place] [address] [place] Glucose [Mass/Vol] 139 mg/dL High 74-99 [facility] Comment on above: Order Comment: Alfredo shay Type: BLOOD SPECIMEN Ordering Facility: [facility] Address: [address] [place] [address] Result Comment: The Chinese Diabetes Association (ADA) provides guidance for cutoff [...] Standards of Medical Care in Diabetes 2016, Chinese Diabetes Association. Diabetes Care. 2016.39(Suppl 1). Performed By: #### 5 5454-3 #### [facility] CLIA [id number] [address] [place] [address] [place] Potassium [Moles/Vol] 4.6 mmol/L Normal 3.7-5.1 [facility] Comment on above: Order Comment: Alfredo shay Type: BLOOD SPECIMEN Ordering Facility: [facility] Address: [address] [place] [address] Performed By: #### 5 5454-3 #### [facility] CLIA [id number] [address] [place] [address] [place] Protein [Mass/Vol] 7.6 g/dL Normal 6.3-8.0 [facility] Comment on above: Order Comment: Alfredo shay Type: BLOOD SPECIMEN Ordering Facility: [facility] Address: [address] [place] [address] Performed By: #### 5 5454-3 #### [facility] CLIA [id number] [address] [place] [address] [place] Sodium [Moles/Vol] 139 mmol/L Normal 136-144 [facility] Comment on above: Order Comment: Speci men Type: BLOOD SPECIMEN Ordering Facility: [facility] Address: [address] [place] [address] Performed By: #### 5 5454-3 #### [facility] CLIA [id number] [address] [place] [address] [place] Urea nitrogen [Mass/Vol] 32 mg/dL High 7-21 [facility] Comment on above: Order Comment: Speci men Type: BLOOD SPECIMEN Ordering Facility: [facility] Address: [address] [place] [address] Performed By: #### 5 5454-3 #### [facility] CLIA [id number] [address] [place] [address] [place] HbA1c (Bld)on 01-23-2025 Average glucose Estimated from glycated hemoglobin (Bld) [Mass/Vol] 137 mg/dL Normal [facility] Comment on above: Order Comment: Speci men Type: BLOOD SPECIMEN Ordering Facility: [facility] Address: [address] [place] [address] Result Comment: eAG: (Estimated average glucose) is a calculated value from HgbA1c and is marketing development representative of the average blood glucose level in the last 2-3 month period. Performed By: #### 5 5454-3 #### [facility] CLIA [id number] [address] [place] [address] [place] HbA1c (Bld) [Mass fraction] 6.4 % High 4.3-5.6 [facility] Comment on above: Order Comment: Speci men Type: BLOOD SPECIMEN Ordering Facility: [facility] Address: [address] [place] [address] Result Comment: Amer ican Diabetes Association guidelines indicate that patients with HgbA1c in the range 5.7-6.4% are at increased risk for development of diabetes, and intervention by lifestyle modification may be beneficial. HgbA1c greater or equal to 6.5% is considered diagnostic of diabetes. Performed By: #### 5 5454-3 #### [facility] CLIA [id number] [address] [place] [address] [place] Lipid 1996 panelon 5 Cholesterol [Mass/Vol] 156 mg/dL Normal <200 [facility] Comment on above: Order Comment: Alfredo shay Type: BLOOD SPECIMEN Ordering Facility: [facility] Address: [address] [place] [address] Result Comment: <200 mg/dL, Desirable 200-239 mg/dL, Borderline high >239 mg/dL, High Performed By: #### 5 5454-3 #### [facility] CLIA [id number] [address] [place] [address] [place] Cholesterol in HDL [Mass/Vol] 51 mg/dL Normal >39 [facility] Comment on above: Order Comment: Alfredo shay Type: BLOOD SPECIMEN Ordering Facility: [facility] Address: [address] [place] [address] Result Comment: 40-5 9 mg/dL, Acceptable >59 mg/dL, High: Negative risk factor for coronary heart disease <40 mg/dL, Low: Positive risk factor for coronary heart disease Performed By: #### 5 5454-3 #### [facility] CLIA [id number] [address] [place] [address] [place] Cholesterol in LDL [Mass/Vol] 89 mg/dL Normal <100 [facility] Comment on above: Order Comment: Alfredo shay Type: BLOOD SPECIMEN Ordering Facility: [facility] Address: [address] [place] [address] Result Comment: <100 mg/dL, Optimal 100-129 mg/dL, Near optimal/above optimal 130-159 mg/dL, Borderline high 160-189 mg/dL, High >189 mg/dL, Very high Secondary prevention optimal LDL Cholesterol levels are recommended to be <70 mg/dL LDL cholesterol is calculated using the Da Silva-NIH equation. Performed By: #### 5 5454-3 #### [facility] IA [id number] [address] [place] [address] [place] Cholesterol in LDL/Cholesterol in HDL [Mass ratio] 1.75 {ratio} Normal <2.54 [facility] Comment on above: Order Comment: Alfredo shay Type: BLOOD SPECIMEN Ordering Facility: [facility] Address: [address] [place] [address] Result Comment: Refjalen maguire: 1. National Cholesterol Education Program ATP III Guideline At-A-Glance Quick Desk Reference: National Heart, Lung, and Blood Dexter. National Institutes of Health. 2001: NIH Publication No. 01-3305. 2. An International Atherosclerosis Society position paper: global recommendations for the management of dyslipidemia: executive summary, Atherosclerosis. 2014: 232(2):410-413. Performed By: #### 5 5454-3 #### [facility] IA [id number] [address] [place] [address] [place] Cholesterol in VLDL [Mass/Vol] 13 mg/dL Normal <30 [facility] Comment on above: Order Comment: Alfredo shay Type: BLOOD SPECIMEN Ordering Facility: [facility] Address: [address] [place] [address] Performed By: #### 5 5454-3 #### [facility] IA [id number] [address] [place] [address] [place] Cholesterol non HDL [Mass/Vol] 105 mg/dL Normal <130 [facility] Comment on above: Order Comment: Alfredo shay Type: BLOOD SPECIMEN Ordering Facility: [facility] Address: [address] [place] [address] Result Comment: <130 mg/dL, Optimal 130-159 mg/dL, Near optimal/above optimal 160-189 mg/dL, Borderline high 190-219 mg/dL, High >219 mg/dL, Very high Secondary prevention optimal non HDL Cholesterol levels are recommended to be <100 mg/dL Performed By: #### 5 5454-3 #### [facility] CLIA [id number] [address] [place] [address] [place] Cholesterol.total/Amaya sterol in HDL [Mass ratio] 3.06 {ratio} Normal <5.10 [facility] Comment on above: Order Comment: Speci men Type: BLOOD SPECIMEN Ordering Facility: [facility] Address: [address] [place] [address] Performed By: #### 5 5454-3 #### [facility] CLIA [id number] [address] [place] [address] STATES [place] [facility] FASTING TIME 15 hrs Normal [facility] Comment on above: Order Comment: Speci men Type: BLOOD SPECIMEN Ordering Facility: [facility] Address: [address] [place] [address] Performed By: #### 5 5454-3 #### [facility] CLIA [id number] [address] [place] [address] [place] Triglyceride [Mass/Vol] 83 mg/dL Normal <150 [facility] Comment on above: Order Comment: Speci men Type: BLOOD SPECIMEN Ordering Facility: [facility] Address: [address] [place] [address] Result Comment: <150 mg/dL, Normal 150-199 mg/dL, Borderline high 200-499 mg/dL, High >499 mg/dL, Very high Performed By: #### 5 5454-3 #### [facility] CLIA [id number] [address] [place] [address] [place] Cardiology Visit Reporton Cardiology Visit Report [facility] [address] [place], [place] [address] OFFICE VISIT Date of Service: 01/01/25 MR#: [id number] Acct: [id number] Name: LUCILLE THURMAN Rep #: [id number] : 1935 Provider: Dr. Jonah Bahsir MD Age/Sex: 89/F Location: [facility] Status: Signed HPI HPI History of [...] NIBP Intake Visit Reasons: 3 M FU [employer] Required: No Accompanied by: daughter Is patient [...] x3 Extremities (more content not included)... Normal [facility] .GFRon 10-30-2024 Estimated Glomerular Filtration Rate 34 ml/min/1.73sqm Normal [facility] Comment on above: Result Comment: Stages of [...] Performed By: #### B MP, GFR #### [address] [address] BMPon 10-30-2024 BUN/Creatinine Ratio 28 ratio High 7-27 [facility] Comment on above: Performed By: #### B MP, GFR #### [address] [address] Calcium [Mass/Vol] 9.5 mg/dL Normal 8.4-10.2 [facility] Comment on above: Performed By: #### B MP, GFR #### [address] [address] Chloride [Moles/Vol] 102 mmol/L Normal 98-107 [facility] Comment on above: Performed By: #### B MP, GFR #### [address] [address] CO2 [Moles/Vol] 30 mmol/L Normal 23-31 [facility] Comment on above: Performed By: #### B MP, GFR #### [address] [address] Creatinine [Mass/Vol] 1.48 mg/dL High 0.55-1.02 [facility] Comment on above: Result Comment: Test ing performed on Et3ar[employer] Dimension EXL analyzer using a modified kinetic Aram technique. Performed By: #### B MP, GFR #### [address] [address] Electrolyte Balance 6.0 mEq/L Normal 4.0-15.0 [facility] Comment on above: Performed By: #### B MP, GFR #### [address] [address] Glucose [Mass/Vol] 115 mg/dL High 83-110 [facility] Comment on above: Performed By: #### B MP, GFR #### [address] [address] Potassium [Moles/Vol] 4.6 mmol/L Normal 3.5-5.1 [facility] Comment on above: Performed By: #### B MP, GFR #### [address] [address] Sodium [Moles/Vol] 138 mmol/L Normal 136-145 [facility] Comment on above: Performed By: #### B MP, GFR #### [address] [address] Urea nitrogen [Mass/Vol] 41 mg/dL High 7-18 [facility] Comment on above: Performed By: #### B MP, GFR #### [address] [address] LABORATORYOrdered By: SYSTEM SYSTEM on 10-30-2024 Calcium [...] 7 - 27 ratio AO ADM SS CNPFanta 10-20-2024 CNPN Telephone (FAMPWS) LUCILLE THURMAN ([id number]) 1935 F Date Time Provider Department 1/31/25 ALLIE STANTON FAMPWS During your visit today, we recorded the following information about you: Gume YanezSheron 10/20/2024 11:13 AM Signed Lucille is calling Allie Stanton MD today to request Orders (Handicap placard) Please call patient when created. Patient has been identified by name and birthdate. Duration of symptoms: N/A Person calling: self Call patient at: at home [phone] (home) [phone] (work) [phone] (cell) Was an appointment scheduled: No Closing statement: Sheron Olson Chelle Ocampo MA 10/20/2024 11:18 AM Signed See request below. Call pt once complete and ask if pt wants to pick up man or have mailed to her. ZEV Pringle [...] Status:Closed by CHELLE TORRE on 10/20/24 Normal [facility] Comprehensive metabolic 2000 panelon 10-16-2024 Albumin [Mass/Vol] 3.9 g/dL Normal 3.9-4.9 [facility] Comment on above: Order Comment: Speci men Type: BLOOD SPECIMENOrdering Facility: [facility] Address: [address] [place] [address] Performed By: #### 2 4323-8 ####[facility] LABCLIA [id number] [place] [address], [place] [address] [place] ALP [Catalytic activity/Vol] 73 U/L Normal 34-123 [facility] Comment on above: Order Comment: Speci men Type: BLOOD SPECIMENOrdering Facility: [facility] Address: [address] [place] [address] Performed By: #### 2 4323-8 ####[facility] LABCLIA [id number] [address] [address] [place] ALT [Catalytic activity/Vol] 21 U/L Normal 7-38 [facility] Comment on above: Order Comment: Speci men Type: BLOOD SPECIMENOrdering Facility: [facility] Address: [address] [place] [address] Performed By: #### 2 4323-8 ####[facility] LABCLIA [id number] [place] [id number] [place] Anion gap [Moles/Vol] 11 mmol/L Normal 8-15 [facility] Comment on above: Order Comment: Speci men Type: BLOOD SPECIMENOrdering Facility: [facility] Address: [address] [place] [address] Performed By: #### 2 4323-8 ####[facility] LABCLIA [id number] [place] [address] [place] AST [Catalytic activity/Vol] 30 U/L Normal 13-35 [facility] Comment on above: Order Comment: Speci men Type: BLOOD SPECIMENOrdering Facility: [facility] Address: [address] [place], [place] [address] Performed By: #### 2 4323-8 ####[facility] LABCLIA [id number] [place] [address] [place] Bilirubin [Mass/Vol] 0.5 mg/dL Normal 0.2-1.3 [place] Comment on above: Order Comment: Speci men Type: BLOOD SPECIMENOrdering Facility: [facility] Address: [address] [place], [place] [address] Performed By: #### 2 4323-8 ####[facility] LABCLIA [id number] [place] [id number] [place] Calcium [Mass/Vol] 9.8 mg/dL Normal 8.5-10.2 [facility] Comment on above: Order Comment: Speci men Type: BLOOD SPECIMENOrdering Facility: [facility] Address: [address] [place] [address] Performed By: #### 2 4323-8 ####[facility] LABCLIA [id number] [place] [address] [place] Chloride [Moles/Vol] 105 mmol/L Normal 98-107 [place] Comment on above: Order Comment: Speci men Type: BLOOD SPECIMENOrdering Facility: [facility] Address: [address] [place] [address] Performed By: #### 2 4323-8 ####[facility] LABCLIA [id number] [place] [address] [place] CO2 [Moles/Vol] 24 mmol/L Normal 22-30 [facility] Comment on above: Order Comment: Speci men Type: BLOOD SPECIMENOrdering Facility: [facility] Address: [address] [place] [address] Performed By: #### 2 4323-8 ####[facility] LABCLIA [id number] [place] [address] [place] Creatinine [Mass/Vol] 1.46 mg/dL High 0.58-0.96 [facility] Comment on above: Order Comment: Speci men Type: BLOOD SPECIMENOrdering Facility: [facility] Address: [address] [place] [address] Performed By: #### 2 4323-8 ####[facility] LABCLIA [id number] [place] [address] [place] Creatinine and Glomerular filtration rate.predicted panel (S/P/Bld) 34 mL/min/1.73m??? Low >=60 [facility] Comment on above: Order Comment: Speci men Type: BLOOD SPECIMENOrdering Facility: [facility] Address: [address] [place] [address] Result Comment: Mami mated Glomerular Filtration Rate [...] actual GFR. Performed By: #### 2 4323-8 ####[facility] LABIA [id number] [place] [address] [place] Glucose [Mass/Vol] 77 mg/dL Normal 74-99 [facility] Comment on above: Order Comment: Alfredo shay Type: BLOOD SPECIMENOrdering Facility: [facility] Address: [address] [place] [address] Result Comment: The [employer] Diabetes Association (ADA) provides guidance for cutoff [...] Standards of Medical Care in Diabetes 2016, Chinese Diabetes Association. Diabetes Care. 2016.39(Suppl 1). Performed By: #### 2 4323-8 ####[facility] LABIA [id number] [place] [id number] [place] Potassium [Moles/Vol] 4.8 mmol/L Normal 3.7-5.1 [facility] Comment on above: Order Comment: Alfredo shay Type: BLOOD SPECIMENOrdering Facility: [facility] Address: [address] [place] [address] Performed By: #### 2 4323-8 ####[facility] LABIA [id number] [address] [address] [place] Protein [Mass/Vol] 7.3 g/dL Normal 6.3-8.0 [facility] Comment on above: Order Comment: Speci men Type: BLOOD SPECIMENOrdering Facility: [facility] Address: [address] [place] [address] Performed By: #### 2 4323-8 ####[facility] LABCLIA [id number] [place] [address] [place] Sodium [Moles/Vol] 140 mmol/L Normal 136-144 [facility] Comment on above: Order Comment: Speci men Type: BLOOD SPECIMENOrdering Facility: [facility] Address: [address] [place] [address] Performed By: #### 2 4323-8 ####[facility] LABCLIA [id number] [place] [address] [place] Urea nitrogen [Mass/Vol] 31 mg/dL High 7-21 [facility] Comment on above: Order Comment: Speci men Type: BLOOD SPECIMENOrdering Facility: [facility] Address: [address] [place] [address] Performed By: #### 2 4323-8 ####[facility] LABCLIA [id number] [place] [address] [place] Cardiology Visit Reporton Cardiology Visit Report [facility] [address] [place] [address] OFFICE VISIT Date of Service: 10/12/24 MR#: [id number] Acct: [id number] Name: LUCILLE THURMAN Rep #: [id number] : 1935 Provider: Dr. Jonah Bashir MD Age/Sex: 89/F Location: [facility] Status: Signed HPI HPI History of [...] Pulse Source NIBP Intake Visit Reasons: S/P [facility] 10/08 [employer]aking [employer] Required: No Accompanied by: Daughter Is patient [...] you fallen in the past year?: No [facility] Medical History Acute blood loss anemia Anemia [...] Complete 10/05 (more content not included)... Normal [facility] CNOVon 10-11-2024 CNOV Office Visit (FAMPWS ) LUCILLE THURMAN ([id number]) 1935 F Do not c* Date Time Provider Department 10/11/24 2:00 PM [facility] During your visit today, we recorded the following information about you: Pulse Respiration Blood pressure Weight 71/minute 16/minute 140/68 70 kg Treva Sandoval APRN.[employer] MANAGER 10/11/2024 5:34 PM Signed This is a 89 year old female who presents today with: Patient presents with: Follow Up: 4 day Hospital follow up HISTORY OF PRESENT ILLNESS: Lucille Thurman is a 89 year old female. Patient presents with: Follow Up: 4 day Hospital follow up Daughters present at this appointment. 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 Normal [facility] CBC W Auto Differential pane l (Bld)on 10-10-2024 Basophils (Bld) [#/Vol] 0.06 10*3/uL Normal <0.11 [facility] Comment on above: Order Comment: Speci men Type: BLOOD SPECIMEN [facility] Address: [address] [place] [address] Performed By: #### 5 5454-3 #### [facility] CLIA [id number] [address] [place] [address] [place] Basophils/100 WBC (Bld) 0.8 % Normal C [facility] Comment on above: Order Comment: Speci men Type: BLOOD SPECIMEN [facility] Address: [address] [place] [address] Performed By: #### 5 5454-3 #### [facility] CLIA [id number] [address] [place] [address] [place] Differential cell count method Nom (Bld) Auto Normal [facility] Comment on above: Order Comment: Speci men Type: BLOOD SPECIMEN [facility] Address: [address] [place] [address] Performed By: #### 5 5454-3 #### [facility] CLIA [id number] [address] [place] [address] [place] Eosinophils (Bld) [#/Vol] 0.19 10*3/uL Normal <0.46 [facility] Comment on above: Order Comment: Speci men Type: BLOOD SPECIMEN [facility] Address: [address] [place] [address] Performed By: #### 5 5454-3 #### [facility] CLIA [id number] [address] [place] [address] [place] Eosinophils/100 WBC (Bld) 2.6 % Normal [facility] Comment on above: Order Comment: Speci men Type: BLOOD SPECIMEN [facility] Address: [address] [place] [address] Performed By: #### 5 5454-3 #### [facility] CLIA [id number] [address] [place] [address] [place] Erythrocyte distribution width (RBC) [Ratio] 13.7 % Normal 11.5-15.0 [facility] Comment on above: Order Comment: Speci men Type: BLOOD SPECIMEN [facility] Address: [address] [place] [address] Performed By: #### 5 5454-3 #### [facility] CLIA [id number] [address] [place] [address] [place] Hematocrit (Bld) [Volume fraction] 33.1 % Low 36.0-46.0 [facility] Comment on above: Order Comment: Speci men Type: BLOOD SPECIMEN [facility] Address: [address] [place] [address] Performed By: #### 5 5454-3 #### [facility] CLIA [id number] [address] [place] [address] [place] Hemoglobin (Bld) [Mass/Vol] 10.6 g/dL Low 11.5-15.5 [facility] Comment on above: Order Comment: Speci men Type: BLOOD SPECIMEN [facility] Address: [address] [place] [address] Performed By: #### 5 5454-3 #### [facility] CLIA [id number] [address] [place] [address] [place] Immature granulocytes (Bld) [#/Vol] 10*3/uL Normal <0.10 [facility] Comment on above: Order Comment: Speci men Type: BLOOD SPECIMEN [facility] Address: [address] [place] [address] Performed By: #### 5 5454-3 #### [facility] CLIA [id number] [address] [place] [address] [place] Immature granulocytes/100 WBC (Bld) 0.3 % Normal [facility] Comment on above: Order Comment: Speci men Type: BLOOD SPECIMEN [facility] Address: [address] [place] [address] Performed By: #### 5 5454-3 #### [facility] CLIA [id number] [address] [place] [address] [place] Lymphocytes (Bld) [#/Vol] 1.06 10*3/uL Normal 1.00-4.00 [facility] Comment on above: Order Comment: Speci men Type: BLOOD SPECIMEN [facility] Address: [address] [place] [address] Performed By: #### 5 5454-3 #### [facility] CLIA [id number] [address] [place] [address] [place] Lymphocytes/100 WBC (Bld) 14.5 % Normal [facility] Comment on above: Order Comment: Speci men Type: BLOOD SPECIMEN [facility] Address: [address] [place] [address] Performed By: #### 5 5454-3 #### [facility] CLIA [id number] [address] [place] [address] [place] MCH (RBC) [Entitic mass] 30.4 pg Normal 26.0-34.0 [facility] Comment on above: Order Comment: Speci men Type: BLOOD SPECIMEN [facility] Address: [address] [place] [address] Performed By: #### 5 5454-3 #### [facility] CLIA [id number] [address] [place] [address] [place] MCHC (RBC) [Mass/Vol] 32.0 g/dL Normal 30.5-36.0 [facility] Comment on above: Order Comment: Speci men Type: BLOOD SPECIMEN [facility] Address: [address] [place] [address] Performed By: #### 5 5454-3 #### [facility] CLIA [id number] [address] [place] [address] [place] MCV (RBC) [Entitic vol] 94.8 fL Normal 80.0-100.0 C [facility] Comment on above: Order Comment: Speci men Type: BLOOD SPECIMEN [facility] Address: [address] [place] [address] Performed By: #### 5 5454-3 #### [facility] CLIA [id number] [address] [place] [address] [place] Monocytes (Bld) [#/Vol] 0.66 10*3/uL Normal <0.87 [facility] Comment on above: Order Comment: Speci men Type: BLOOD SPECIMEN [facility] Address: [address] [place] [address] Performed By: #### 5 5454-3 #### [facility] CLIA [id number] [address] [place] [address] [place] Monocytes/100 WBC (Bld) 9.0 % Normal C [facility] Comment on above: Order Comment: Speci men Type: BLOOD SPECIMEN [facility] Address: [address] [place] [address] Performed By: #### 5 5454-3 #### [facility] CLIA [id number] [address] [place] [address] [place] Neutrophils (Bld) [#/Vol] 5.32 10*3/uL Normal 1.45-7.50 [facility] Comment on above: Order Comment: Speci men Type: BLOOD SPECIMEN [facility] Address: [address] [place] [address] Performed By: #### 5 5454-3 #### [facility] CLIA [id number] [address] [place] [address] [place] Neutrophils/100 WBC (Bld) 72.8 % Normal [facility] Comment on above: Order Comment: Speci men Type: BLOOD SPECIMEN [facility] Address: [address] [place] [address] Performed By: #### 5 5454-3 #### [facility] CLIA [id number] [address] [place] [address] [place] Nucleated RBC (Bld) [#/Vol] 10*3/uL Normal <0.01 [facility] Comment on above: Order Comment: Speci men Type: BLOOD SPECIMEN [facility] Address: [address] [place] [address] Performed By: #### 5 5454-3 #### [facility] CLIA [id number] [address] [place] [address] [place] Nucleated RBC/100 WBC (Bld) [Ratio] 0.0 /100 WBC Normal [facility] Comment on above: Order Comment: Speci men Type: BLOOD SPECIMEN [facility] Address: [address] [place] [address] Performed By: #### 5 5454-3 #### [facility] CLIA [id number] [address] [place] [address] [place] Platelet mean volume (Bld) [Entitic vol] 9.7 fL Normal 9.0-12.7 [facility] Comment on above: Order Comment: Speci men Type: BLOOD SPECIMEN [facility] Address: [address] [place] [address] Performed By: #### 5 5454-3 #### [facility] CLIA [id number] [address] [place] [address] [place] Platelets (Bld) [#/Vol] 223 10*3/uL Normal 150-400 [facility] Comment on above: Order Comment: Speci men Type: BLOOD SPECIMEN [facility] Address: [address] [place] [address] Performed By: #### 5 5454-3 #### [facility] CLIA [id number] [address] [place] [address] [place] RBC (Bld) [#/Vol] 3.49 10*6/uL Low 3.90-5.20 [facility] Comment on above: Order Comment: Speci men Type: BLOOD SPECIMEN [facility] Address: [address] [place] [address] Performed By: #### 5 5454-3 #### [facility] CLIA [id number] [address] [place] [address] [place] WBC (Bld) [#/Vol] 7.31 10*3/uL Normal 3.70-11.00 [facility] Comment on above: Order Comment: Speci men Type: BLOOD SPECIMEN [facility] Address: [address] [place] [address] Performed By: #### 5 5454-3 #### [facility] CLIA [id number] [address] [place] [address] [place] Comprehensive metabolic 2000 panelon 10-10-2024 Albumin [Mass/Vol] 3.9 g/dL Normal 3.9-4.9 [facility] Comment on above: Order Comment: Speci men Type: BLOOD SPECIMEN [facility] Address: [address] [place] [address] Performed By: #### 2 4323-8 #### [facility] CLIA [id number] [address] [place] [address] [place] ALP [Catalytic activity/Vol] 82 U/L Normal 34-123 [facility] Comment on above: Order Comment: Speci men Type: BLOOD SPECIMEN [facility] Address: [address] [place] [address] Performed By: #### 2 4323-8 #### [facility] CLIA [id number] [address] [place] [address] [place] ALT [Catalytic activity/Vol] 32 U/L Normal 7-38 [facility] Comment on above: Order Comment: Speci men Type: BLOOD SPECIMEN [facility] Address: [address] [place] [address] Performed By: #### 2 4323-8 #### [facility] CLIA [id number] [address] [place] [address] [place] Anion gap [Moles/Vol] 9 mmol/L Normal 8-15 [facility] Comment on above: Order Comment: Speci men Type: BLOOD SPECIMEN [facility] Address: [address] [place] [address] Performed By: #### 2 4323-8 #### [facility] CLIA [id number] [address] [place] [address] [place] AST [Catalytic activity/Vol] 37 U/L High 13-35 [facility] Comment on above: Order Comment: Speci men Type: BLOOD SPECIMEN [facility] Address: [address] [place] [address] Performed By: #### 2 4323-8 #### [facility] CLIA [id number] [address] [place] [address] [place] Bilirubin [Mass/Vol] 0.7 mg/dL Normal 0.2-1.3 [place] Comment on above: Order Comment: Speci men Type: BLOOD SPECIMEN [facility] Address: [address] [place] [address] Performed By: #### 2 4323-8 #### [facility] CLIA [id number] [address] [place] [address] [place] Calcium [Mass/Vol] 9.4 mg/dL Normal 8.5-10.2 [facility] Comment on above: Order Comment: Speci men Type: BLOOD SPECIMEN [facility] Facility: [facility] Address: [address] [place] [address] Performed By: #### 2 4323-8 #### [facility] CLIA [id number] [address] [place] [address] [place] Chloride [Moles/Vol] 107 mmol/L Normal 98-107 [place] Comment on above: Order Comment: Speci men Type: BLOOD SPECIMEN [facility] Facility: [facility] Address: [address] [place] [address] Performed By: #### 2 4323-8 #### [facility] CLIA [id number] [address] [place] [address] [place] CO2 [Moles/Vol] 23 mmol/L Normal 22-30 [facility] Comment on above: Order Comment: Speci men Type: BLOOD SPECIMEN [facility]ing Facility: [facility] Address: [address] [place] [address] Performed By: #### 2 4323-8 #### [facility] CLIA [id number] [address] [place] [address] [place] Creatinine [Mass/Vol] 1.31 mg/dL High 0.58-0.96 [facility] Comment on above: Order Comment: Alfredo shay Type: BLOOD SPECIMEN [facility]ing Facility: [facility] Address: [address] [place] [address] Performed By: #### 2 4323-8 #### [facility] CLIA [id number] [address] [place] [address] [place] Creatinine and Glomerular filtration rate.predicted panel (S/P/Bld) 39 mL/min/1.73m??? Low >=60 [facility] Comment on above: Order Comment: Alfredo shay Type: BLOOD SPECIMEN [facility] Facility: [facility] Address: [address] [place] [address] Result Comment: Mami mated Glomerular Filtration Rate [...] actual GFR. Performed By: #### 2 4323-8 #### [facility] CLIA [id number] [address] [place] [address] [place] Glucose [Mass/Vol] 151 mg/dL High 74-99 [facility] Comment on above: Order Comment: Alfredo shay Type: BLOOD SPECIMEN [facility]ing Facility: [facility] Address: [address] [place] [address] Result Comment: The [employer] Diabetes [employer] (ADA) provides guidance for cutoff [...] Standards of Medical Care in Diabetes 2016, [employer]. Diabetes Care. 2016.39(Suppl 1). Performed By: #### 2 4323-8 #### [facility] CLIA [id number] [address] [place] [address] [place] Potassium [Moles/Vol] 4.5 mmol/L Normal 3.7-5.1 [facility] Comment on above: Order Comment: Speci men Type: BLOOD SPECIMEN Ordering Facility: [facility] Address: [address] [place] [address] Performed By: #### 2 4323-8 #### [facility] CLIA [id number] [address] [place] [address] [place] Protein [Mass/Vol] 7.3 g/dL Normal 6.3-8.0 [facility] Comment on above: Order Comment: Speci men Type: BLOOD SPECIMEN [facility]ing Facility: [facility] Address: [address] [place] [address] Performed By: #### 2 4323-8 #### [facility] CLIA [id number] [address] [place] [address] [place] [place] Sodium [Moles/Vol] 139 mmol/L Normal 136-144 [facility] Comment on above: Order Comment: Speci men Type: BLOOD SPECIMEN Ordering Facility: [facility] Address: [address] [place] [address] Performed By: #### 2 4323-8 #### [facility] CLIA [id number] [address] [place] [address] [place] Urea nitrogen [Mass/Vol] 28 mg/dL High 7-21 [facility] Comment on above: Order Comment: Speci men Type: BLOOD SPECIMEN Ordering Facility: [facility] Address: [address] [place] [address] Performed By: #### 2 4323-8 #### [facility] CLIA [id number] [address] [place] [address] [place] Basic Metabolic Profile (BMP )on 10-09-2024 BUN Normal 7-18 [facility] Comment on above: Result Comment: Canc elled via OM: Order cancelled - Patient discharged Performed By: #### L 100.0100, L500.2500 #### [facility] [address] [place], [address] BUN/CRE Normal 10-20 [facility] Comment on above: Result Comment: Canc elled via OM: Order cancelled - Patient discharged Performed By: #### L 100.0100, L500.2500 #### [facility] [address] [place], [address] CA,Total Normal 8.5-10.1 [facility] Comment on above: Result Comment: Canc elled via OM: Order cancelled - Patient discharged Performed By: #### L 100.0100, L500.2500 #### [facility] [address] [place], [address] CL Normal 98-107 [facility] Comment on above: Result Comment: Canc elled via OM: Order cancelled - Patient discharged Performed By: #### L 100.0100, L500.2500 #### [facility] [address] [place], [address] CO2 Normal 21.0-32.0 [facility] Comment on above: Result Comment: Canc elled via OM: Order cancelled - Patient discharged Performed By: #### L 100.0100, L500.2500 #### [facility] [address] [place], [address] CREAT,SERUM Normal 0.55-1.02 [facility] Comment on above: Result Comment: Canc elled via OM: Order cancelled - Patient discharged Performed By: #### L 100.0100, L500.2500 #### [facility] [address] [place], [address] EST GFR Normal >60 [facility] Comment on above: Result Comment: Canc elled via OM: Order cancelled - Patient discharged Performed By: #### L 100.0100, L500.2500 #### [facility] [address] [place], [address] EST GFR - AA Normal >60 [facility] Comment on above: Result Comment: Canc elled via OM: Order cancelled - Patient discharged Performed By: #### L 100.0100, L500.2500 #### [facility] [address] [place], [address] GAP Normal 5-15 [facility] Comment on above: Result Comment: Canc elled via OM: Order cancelled - Patient discharged Performed By: #### L 100.0100, L500.2500 #### [facility] [address] [place], [address] GLU Normal 74-106 [facility] Comment on above: Result Comment: Canc elled via OM: Order cancelled - Patient discharged Performed By: #### L 100.0100, L500.2500 #### [facility] [address] [place], [address] Potassium Normal 3.5-5.1 [facility] Comment on above: Result Comment: Canc elled via OM: Order cancelled - Patient discharged Performed By: #### L 100.0100, L500.2500 #### [facility] [address] [place], [address] Basic Metabolic Profile (BMP) Normal 136-145 [facility] Comment on above: Result Comment: Canc elled via OM: Order cancelled - Patient discharged Performed By: #### L 100.0100, L500.2500 #### [facility] [address] [place], [address] CBC W/Diff, Automatedon 01-2 0-2024 Absolute Neut Normal 2.0-7.7 [facility] Comment on above: Result Comment: Canc elled via OM: Order cancelled - Patient discharged Performed By: #### L 100.0100, L500.2500 #### [facility] [address] [place], [address] HCT Normal 37-47 [facility] Comment on above: Result Comment: Canc elled via OM: Order cancelled - Patient discharged Performed By: #### L 100.0100, L500.2500 #### [facility] [address] [place], [address] HGB Normal 12.0-15.0 [facility] Comment on above: Result Comment: Canc elled via OM: Order cancelled - Patient discharged Performed By: #### L 100.0100, L500.2500 #### [facility] [address] [place], [address] MCH Normal 27.0-32.0 [facility] Comment on above: Result Comment: Canc elled via OM: Order cancelled - Patient discharged Performed By: #### L 100.0100, L500.2500 #### [facility] [address] [place], [address] MCHC Normal 32-36 [facility] Comment on above: Result Comment: Canc elled via OM: Order cancelled - Patient discharged Performed By: #### L 100.0100, L500.2500 #### [facility] [address] [place], [address] MCV Normal 81-99 [facility] Comment on above: Result Comment: Canc elled via OM: Order cancelled - Patient discharged Performed By: #### L 100.0100, L500.2500 #### [facility] [address] [place], [address] NEUT% Normal 47-70 [facility] Comment on above: Result Comment: Canc elled via OM: Order cancelled - Patient discharged Performed By: #### L 100.0100, L500.2500 #### [facility] [address] [place], [address] PLT Normal 150-450 [facility] Comment on above: Result Comment: Canc elled via OM: Order cancelled - Patient discharged Performed By: #### L 100.0100, L500.2500 #### [facility] [address] [place], [address] RBC Normal 4.2-5.4 [facility] Comment on above: Result Comment: Canc elled via OM: Order cancelled - Patient discharged Performed By: #### L 100.0100, L500.2500 #### [facility] [address] [place], [address] RDW CV Normal 11.6-14.6 [facility] Comment on above: Result Comment: Canc elled via OM: Order cancelled - Patient discharged Performed By: #### L 100.0100, L500.2500 #### [facility] [address] [place], [address] RDW SD Normal 35.1-43.9 [facility] Comment on above: Result Comment: Canc elled via OM: Order cancelled - Patient discharged Performed By: #### L 100.0100, L500.2500 #### [facility] [address] [place], [address] WBC Normal 4.4-11.0 [facility] Comment on above: Result Comment: Canc elled via OM: Order cancelled - Patient discharged Performed By: #### L 100.0100, L500.2500 #### [facility] [address] [place], [address] [facility] LUCILLE THURMAN Xavier ([id number]) 1935 F Do not c* Date Time Provider Department 10/09/24 TREVA SANDOVAL During your visit today, we recorded the following information about you: Arnold Gottlieb LPN 10/09/2024 9:19 AM Addendum Talked to Pt son in law. Pt needs labs today and appointment on . Pt also needs a Rx of amlodipine 5 mg sent to [facility] BRANDY Perry Ashley, APRN.[employer] MANAGER 10/09/2024 9:40 AM Signed Noted, CMP and CBC placed, RX for amlodipine sent to pharmacy. Thank you Treva Sandoval APRN.[employer]REIGHT MANAGER Treva Sandoval APRN.[employer] FREIGHT MANAGER 10/09/2024 9:40 AM Signed Addended by: TREVA [...] 5 COMPREHENSIVE METABOLIC PANEL [SQCMP] Order #: [id number] FUTURE COMPLETE BLOOD COUNT AND DIFFERENTIAL [SQCBCDIF] Order #: [id number] FUTURE Prescriptions as of 10/09/2024 - amLODIPine [...] Status:Closed by ARNOLD GOTTLIEB on 10/09/24 Normal [facility] Basic Metabolic Profile (BMP )on 10-08-2024 BUN/CRE 27.6 RATIO High 07-09 [facility] Comment on above: Performed By: #### L 500.2500, L100.0100 #### [facility] [address] [place], [address] CA,Total 8.5 mg/dL Normal 8.5-10.1 [facility] Comment on above: Performed By: #### L 500.2500, L100.0100 #### [facility] [address] [place], [address] Chloride [Moles/Vol] 110 mmol/L High 98-107 [facility] Comment on above: Performed By: #### L 500.2500, L100.0100 #### [facility] [address] [place], [address] CO2 [Moles/Vol] 27.0 mmol/L Normal 21.0-32.0 [facility] Comment on above: Performed By: #### L 500.2500, L100.0100 #### [facility] [address] [place], [address] Creatinine [Mass/Vol] 1.34 mg/dL High 0.55-1.02 [facility] Comment on above: Result Comment: The validity of the calculated GFR GFRAA in patients over 70 years has not been determined. Clinical correlation is essential. Performed By: #### L 500.2500, L100.0100 #### [facility] [address] [place], [address] ECRCL 26.21 ml/min Normal [facility] Comment on above: Performed By: #### L 500.2500, L100.0100 #### [facility] [address] [place], [address] EST GFR - AA 48 mL/min Low >60 [facility] Comment on above: Result Comment: Afri can Chinese GFR Calc Performed By: #### L 500.2500, L100.0100 #### [facility] [address] [place], [address] GAP 4 Low 5-15 [facility] Comment on above: Performed By: #### L 500.2500, L100.0100 #### [facility] [address] [place], [address] GFR/1.73 sq M.predicted among non-blacks MDRD (S/P/Bld) [Vol rate/Area] 40 mL/min/{1.73_m2} Low >60 [facility] Comment on above: Result Comment: Non- GFR Calc Performed By: #### L 500.2500, L100.0100 #### [facility] [address] [place], [address] Glucose [Mass/Vol] 142 mg/dL High 74-106 [facility] Comment on above: Result Comment: Fast ing Glucose result greater than or equal to 126 mg/dL suggests DIABETES MELLITUS per A.D.A. criteria. Performed By: #### L 500.2500, L100.0100 #### [facility] [address] [place], [address] Potassium [Moles/Vol] 3.4 mmol/L Low 3.5-5.1 [facility] Comment on above: Performed By: #### L 500.2500, L100.0100 #### [facility] [address] [place], [address] Sodium [Moles/Vol] 141 mmol/L Normal 136-145 [facility] Comment on above: Performed By: #### L 500.2500, L100.0100 #### [facility] [address] [place], [address] Urea nitrogen [Mass/Vol] 37 mg/dL High 7-18 [facility] Comment on above: Performed By: #### L 500.2500, L100.0100 #### [facility] [address] [place], [address] BUN Normal 7-18 [facility] Comment on above: Result Comment: Canc elled via OM: MD Ordered Performed By: #### L 500.2500, L100.0100 #### [facility] [address] [place], [address] BUN/CRE Normal 10-20 [facility] Comment on above: Result Comment: Canc elled via OM: Ordered Performed By: #### L 500.2500, L100.0100 #### [facility] [address] [place], [address] CA,Total Normal 8.5-10.1 [facility] Comment on above: Result Comment: Canc elled via OM: MD Ordered Performed By: #### L 500.2500, L100.0100 #### [facility] [address] [place], [address] CL Normal 98-107 [facility] Comment on above: Result Comment: Canc elled via OM: MD Ordered Performed By: #### L 500.2500, L100.0100 #### [facility] [address] [place], [address] CO2 Normal 21.0-32.0 [facility] Comment on above: Result Comment: Canc elled via OM: MD Ordered Performed By: #### L 500.2500, L100.0100 #### [facility] [address] [place], [address] CREAT,SERUM Normal 0.55-1.02 [facility] Comment on above: Result Comment: Canc elled via OM: MD Ordered Performed By: #### L 500.2500, L100.0100 #### [facility] [address] [place], [address] EST GFR Normal >60 [facility] Comment on above: Result Comment: Canc elled via OM: MD Ordered Performed By: #### L 500.2500, L100.0100 #### [facility] [address] [place], [address] EST GFR - AA Normal >60 [facility] Comment on above: Result Comment: Canc elled via OM: MD Ordered Performed By: #### L 500.2500, L100.0100 #### [facility] [address] [place], [address] GAP Normal 5-15 [facility] Comment on above: Result Comment: Canc elled via OM: MD Ordered Performed By: #### L 500.2500, L100.0100 #### [facility] [address] [place], [address] GLU Normal 74-106 [facility] Comment on above: Result Comment: Canc elled via OM: MD Ordered Performed By: #### L 500.2500, L100.0100 #### [facility] [address] [place], [address] Potassium Normal 3.5-5.1 [facility] Comment on above: Result Comment: Canc elled via OM: MD Ordered Performed By: #### L 500.2500, L100.0100 #### [facility] [address] [place], [address] Basic Metabolic Profile (BMP) Normal 136-145 [facility] Comment on above: Result Comment: Canc elled via OM: MD Ordered Performed By: #### L 500.2500, L100.0100 #### [facility] [address] [place], [address] Bedside Glucoseon 10-08-2024 FINGERSTICK GLU 130 mg/dL High 74-106 [facility] Comment on above: Result Comment: LOAN ACOSTA OF PATIENT CARE PER NURSING PROTOCOL Performed By: #### L 500.2500, L100.0100 #### [facility] [address] [place], [address] CBC W/Diff, Automatedon 09-20 Absolute Lymph 1.24 X10 3/uL Normal 0.83-4.51 [facility] Comment on above: Performed By: #### L 500.2500, L100.0100 #### [facility] [address] [place], [address] Absolute Neut 4.0 X10 3/uL Normal 2.0-7.7 [facility] Comment on above: Performed By: #### L 500.2500, L100.0100 #### [facility] [address] [place], [address] Basophils/100 WBC (Bld) 0.5 % Normal 0-1 [facility] Comment on above: Performed By: #### L 500.2500, L100.0100 #### [facility] [address] [place], [address] Eosinophils/100 WBC (Bld) 3.1 % Normal 0-5 [facility] Comment on above: Performed By: #### L 500.2500, L100.0100 #### [facility] [address] [place], [address] Erythrocyte distribution width (RBC) [Ratio] 13.9 % Normal 11.6-14.6 [facility] Comment on above: Performed By: #### L 500.2500, L100.0100 #### [facility] [address] [place], [address] Hematocrit (Bld) [Volume fraction] 29.1 % Low 37-47 [facility] Comment on above: Performed By: #### L 500.2500, L100.0100 #### [facility] [address] [place], [address] Hemoglobin (Bld) [Mass/Vol] 9.2 g/dL Low 12.0-15.0 [facility] Comment on above: Performed By: #### L 500.2500, L100.0100 #### [facility] [address] [place], [address] IG% 0.500 Normal 0.0-0.9 [facility] Comment on above: Result Comment: IG% - Immature Granulocytes (promyelocytes, myelocytes and metamyelocytes) > 1% indicates that a LEFT SHIFT is Present. Performed By: #### L 500.2500, L100.0100 #### [facility] [address] [place], [address] Lymphocytes/100 WBC (Bld) 20.0 % Normal 19-41 [facility] Comment on above: Performed By: #### L 500.2500, L100.0100 #### [facility] [address] [place], [address] MCH (RBC) [Entitic mass] 29.4 pg Normal 27.0-32.0 [facility] Comment on above: Performed By: #### L 500.2500, L100.0100 #### [facility] [address] [place], [address] MCHC (RBC) [Mass/Vol] 31.6 g/dL Low 32-36 [facility] Comment on above: Performed By: #### L 500.2500, L100.0100 #### [facility] [address] [place], [address] MCV (RBC) [Entitic vol] 93.0 fL Normal 81-99 [facility] Comment on above: Performed By: #### L 500.2500, L100.0100 #### [facility] [address] [place], [address] Monocytes/100 WBC (Bld) 11.1 % High 0-10 [facility] Comment on above: Performed By: #### L 500.2500, L100.0100 #### [facility] [address] [place], [address] Neutrophils/100 WBC (Bld) 64.8 % Normal 47-70 [facility] Comment on above: Performed By: #### L 500.2500, L100.0100 #### [facility] [address] [place], [address] Nucleated RBC (Bld) [#/Vol] 0 10*3/uL Normal 0-5 [facility] Comment on above: Performed By: #### L 500.2500, L100.0100 #### [facility] [address] [place], [address] Platelet mean volume (Bld) [Entitic vol] 9.7 fL Normal 6.2-12.0 [facility] Comment on above: Performed By: #### L 500.2500, L100.0100 #### [facility] [address] [place], [address] Platelets (Bld) [#/Vol] 193 10*3/uL Normal 150-450 [facility] Comment on above: Performed By: #### L 500.2500, L100.0100 #### [facility] [address] [place], [address] RBC (Bld) [#/Vol] 3.13 10*6/uL Low 4.2-5.4 [facility] Comment on above: Performed By: #### L 500.2500, L100.0100 #### [facility] [address] [place], [address] RDW SD 46.9 fl High 35.1-43.9 [facility] Comment on above: Performed By: #### L 500.2500, L100.0100 #### [facility] [address] [place], [address] WBC (Bld) [#/Vol] 6.2 10*3/uL Normal 4.4-11.0 [facility] Comment on above: Performed By: #### L 500.2500, L100.0100 #### [facility] [address] [place], [address] Absolute Neut Normal 2.0-7.7 [facility] Comment on above: Result Comment: Canc elled via OM: MD Ordered Performed By: #### L 500.2500, L100.0100 #### [facility] [address] [place], [address] HCT Normal 37-47 [facility] Comment on above: Result Comment: Williamc elled via OM: MD Ordered Performed By: #### L 500.2500, L100.0100 #### [facility] [address] [place], [address] HGB Normal 12.0-15.0 [facility] Comment on above: Result Comment: Canc elled via OM: MD Ordered Performed By: #### L 500.2500, L100.0100 #### [facility] [address] [place], [address] MCH Normal 27.0-32.0 [facility] Comment on above: Result Comment: Canc elled via OM: MD Ordered Performed By: #### L 500.2500, L100.0100 #### [facility] [address] [place], [address] MCHC Normal 32-36 [facility] Comment on above: Result Comment: Canc elled via OM: MD Ordered Performed By: #### L 500.2500, L100.0100 #### [facility] [address] [place], [address] MCV Normal 81-99 [facility] Comment on above: Result Comment: Canc elled via OM: MD Ordered Performed By: #### L 500.2500, L100.0100 #### [facility] [address] [place], [address] NEUT% Normal 47-70 [facility] Comment on above: Result Comment: Canc elled via OM: MD Ordered Performed By: #### L 500.2500, L100.0100 #### [facility] [address] [place], [address] PLT Normal 150-450 [facility] Comment on above: Result Comment: Canc elled via OM: MD Ordered Performed By: #### L 500.2500, L100.0100 #### [facility] [address] [place], [address] RBC Normal 4.2-5.4 [facility] Comment on above: Result Comment: Canc elled via OM: MD Ordered Performed By: #### L 500.2500, L100.0100 #### [facility] [address] [place], [address] RDW CV Normal 11.6-14.6 [facility] Comment on above: Result Comment: Canc elled via OM: MD Ordered Performed By: #### L 500.2500, L100.0100 #### [facility] [address] [place], [address] RDW SD Normal 35.1-43.9 [facility] Comment on above: Result Comment: Canc elled via OM: MD Ordered Performed By: #### L 500.2500, L100.0100 #### [facility] [address] [place], [address] WBC Normal 4.4-11.0 [facility] Comment on above: Result Comment: Canc elled via OM: MD Ordered Performed By: #### L 500.2500, L100.0100 #### [facility] [address] [place], [address] Discharge Instructionon 09-20 Discharge Instruction [facility] Medical Records Department [address] [place] [address] Instructions for Home/Discharge Instructions 10/08/24 0840 MR#: [id number] Acct: [id number] Name: LUCILLE THURMAN Rep #: [id number] : 1935 89 From: Tone Bethea MD [...] Staff] - Within 1 Month Treva Sandoval NP-C [Primary Care Provider] - Within 1 Week Disposition Disposition (needs filled in before D/C Order can be placed): Home, Self Care 10/08/24 1019 Tone Bethea MD CC: SPANISH TRANSLATORAnna Sandoval; Dr. Jonah Bashir MD; Dr. Jenifer Valente DO; Dr. Shanelle Daly MD Signed Normal [facility] Basic Metabolic Profile (BMP )on 10-07-2024 BUN/CRE 23.3 RATIO High 10-20 [facility] Comment on above: Performed By: #### L 500.2500, L100.0100 #### [facility] Laboratory [address] [place], [address] CA,Total 8.6 mg/dL Normal 8.5-10.1 [facility] Comment on above: Performed By: #### L 500.2500, L100.0100 #### [facility] Laboratory [address] [place], [address] Chloride [Moles/Vol] 104 mmol/L Normal 98-107 [facility] Comment on above: Performed By: #### L 500.2500, L100.0100 #### [facility] Laboratory [address] [place], [address] CO2 [Moles/Vol] 29.0 mmol/L Normal 21.0-32.0 [facility] Comment on above: Performed By: #### L 500.2500, L100.0100 #### [facility] Laboratory [address] [place], [address] Creatinine [Mass/Vol] 1.80 mg/dL High 0.55-1.02 [facility] Comment on above: Result Comment: The validity of the calculated GFR GFRAA in patients over 70 years has not been determined. Clinical correlation is essential. Performed By: #### L 500.2500, L100.0100 #### [facility] Laboratory [address] [place], [address] ECRCL 19.58 ml/min Normal [facility] Comment on above: Performed By: #### L 500.2500, L100.0100 #### [facility] Laboratory [address] [place], [address] EST GFR - AA 34 mL/min Low >60 [facility] Comment on above: Result Comment: Afri can Chinese GFR Calc Performed By: #### L 500.2500, L100.0100 #### [facility] Laboratory [address] [place], [address] GAP 6 Normal 5-15 [facility] Comment on above: Performed By: #### L 500.2500, L100.0100 #### [facility] Laboratory [address] [place], [address] GFR/1.73 sq M.predicted among non-blacks MDRD (S/P/Bld) [Vol rate/Area] 28 mL/min/{1.73_m2} Low >60 [facility] Comment on above: Result Comment: Non- GFR Calc Performed By: #### L 500.2500, L100.0100 #### [facility] Laboratory [address] [place], [address] Glucose [Mass/Vol] 124 mg/dL High 74-106 [facility] Comment on above: Result Comment: Fast ing Glucose result from 100 to 125 mg/dL suggests IMPAIRED HOMEOSTASIS per A.D.A. criteria. Performed By: #### L 500.2500, L100.0100 #### [facility] [address] [place], [address] Potassium [Moles/Vol] 3.8 mmol/L Normal 3.5-5.1 [facility] Comment on above: Performed By: #### L 500.2500, L100.0100 #### [facility] [address] [place], [address] Sodium [Moles/Vol] 139 mmol/L Normal 136-145 [facility] Comment on above: Performed By: #### L 500.2500, L100.0100 #### [facility] [address] [place], [address] Urea nitrogen [Mass/Vol] 42 mg/dL High -18 [facility] Comment on above: Performed By: #### L 500.2500, L100.0100 #### [facility] Laboratory [address] [place], [address] Bedside Glucoseon 10-07-2024 FINGERSTICK GLU 175 mg/dL High [facility]106 [facility] Comment on above: Result Comment: LOAN GEMENT OF PATIENT CARE PER NURSING PROTOCOL Performed By: #### L 100.0100, L500.2500 #### [facility] Laboratory [address] [place], [address] FINGERSTICK GLU 158 mg/dL High 74-106 [facility] Comment on above: Result Comment: LOAN GEMENT OF PATIENT CARE PER NURSING PROTOCOL Performed By: #### L 500.2500, L100.0100 #### [facility] Laboratory [address] [place], [address] FINGERSTICK GLU 120 mg/dL [address] Comment on above: Result Comment: LOAN GEMENT OF PATIENT CARE PER NURSING PROTOCOL Performed By: #### L 100.0100, L500.2500 #### [facility] Laboratory [address] [place], [address] FINGERSTICK GLU 210 mg/dL High 74-106 [facility] Comment on above: Result Comment: LOAN GEMENT OF PATIENT CARE PER NURSING PROTOCOL Performed By: #### L 500.2500, L100.0100 #### [facility] Laboratory [address] [place], [address] FINGERSTICK GLU 210 mg/dL High 74-106 [facility] Comment on above: Result Comment: LOAN GEMENT OF PATIENT CARE PER NURSING PROTOCOL Performed By: #### L 500.2500, L100.0100 #### [facility] Laboratory [address] [place], [address] FINGERSTICK GLU 238 mg/dL High [address] [facility] Comment on above: Result Comment: LOAN GEMENT OF PATIENT CARE PER NURSING PROTOCOL Performed By: #### L 500.2500, L100.0100 #### [facility] Laboratory [address] [place], [address] FINGERSTICK GLU 138 mg/dL High 74-106 [facility] Comment on above: Result Comment: LOAN GEMENT OF PATIENT CARE PER NURSING PROTOCOL Performed By: #### L 500.2500, L100.0100 #### [facility] Laboratory [address] [place], [address] FINGERSTICK GLU 134 mg/dL High -[address] [place] [address] Comment on above: Result Comment: LOAN GEMENT OF PATIENT CARE PER NURSING PROTOCOL Performed By: #### L 501.080 #### [facility] Laboratory [address] [place], [address] FINGERSTICK GLU 125 mg/dL High [address] [place] [address] Comment on above: Result Comment: LOAN GEMENT OF PATIENT CARE PER NURSING PROTOCOL Performed By: #### L 500.2499, L100.0100 #### [facility] Laboratory [address] [place], [address] CBC W/Diff, Automatedon 09-20 Absolute Lymph 1.32 X10 3/uL Normal 0.83-4.51 [facility] Comment on above: Performed By: #### L 500.2500, L100.0100 #### [facility] Laboratory [address] [place], [address] Absolute Neut 4.7 X10 3/uL Normal 2.0-7.7 [facility] Comment on above: Performed By: #### L 500.2500, L100.0100 #### [facility] [address] [place], [address] Basophils/100 WBC (Bld) 0.4 % Normal 0-1 [facility] Comment on above: Performed By: #### L 500.2500, L100.0100 #### [facility] [address] [place], [address] Eosinophils/100 WBC (Bld) 2.1 % Normal 0-5 [facility] Comment on above: Performed By: #### L 500.2500, L100.0100 #### [facility] [address] [place], [address] Erythrocyte distribution width (RBC) [Ratio] 14.2 % Normal 11.6-14.6 [facility] Comment on above: Performed By: #### L 500.2500, L100.0100 #### [facility] Laboratory [address] [place], [address] Hematocrit (Bld) [Volume fraction] 29.2 % Low 37-47 [facility] Comment on above: Performed By: #### L 500.2500, L100.0100 #### [facility] [address] [place], [address] Hemoglobin (Bld) [Mass/Vol] 9.4 g/dL Low 12.0-15.0 [facility] Comment on above: Performed By: #### L 500.2500, L100.0100 #### [facility] [address] [place], [address] IG% 0.300 Normal 0.0-0.9 [facility] Comment on above: Result Comment: IG% - Immature Granulocytes (promyelocytes, myelocytes and metamyelocytes) > 1% indicates that a LEFT SHIFT is Present. Performed By: #### L 500.2500, L100.0100 #### [facility] [address] [place], [address] Lymphocytes/100 WBC (Bld) 18.6 % Low 19-41 [facility] Comment on above: Performed By: #### L 500.2500, L100.0100 #### [facility] Laboratory [address] [place], [address] MCH (RBC) [Entitic mass] 29.3 pg Normal 27.0-32.0 [facility] Comment on above: Performed By: #### L 500.2500, L100.0100 #### [facility] Laboratory [address] [place], [address] MCHC (RBC) [Mass/Vol] 32.2 g/dL Normal 32-36 [facility] Comment on above: Performed By: #### L 500.2500, L100.0100 #### [facility] Laboratory [address] [place], [address] MCV (RBC) [Entitic vol] 91.0 fL Normal 81-99 [facility] Comment on above: Performed By: #### L 500.2500, L100.0100 #### [facility] [address] [place], [address] Monocytes/100 WBC (Bld) 11.7 % High 0-10 [facility] Comment on above: Performed By: #### L 500.2500, L100.0100 #### [facility] Laboratory [address] [place], [address] Neutrophils/100 WBC (Bld) 66.9 % Normal 47-70 [facility] Comment on above: Performed By: #### L 500.2500, L100.0100 #### [facility] Laboratory [address] [place], [address] Nucleated RBC (Bld) [#/Vol] 0 10*3/uL Normal 0-5 [facility] Comment on above: Performed By: #### L 500.2500, L100.0100 #### [facility] Laboratory [address] [place], [address] Platelet mean volume (Bld) [Entitic vol] 9.7 fL Normal 6.2-12.0 [facility] Comment on above: Performed By: #### L 500.2500, L100.0100 #### [facility] Laboratory [address] [place], [address] Platelets (Bld) [#/Vol] 206 10*3/uL Normal 150-450 [facility] Comment on above: Performed By: #### L 500.2500, L100.0100 #### [facility] Laboratory [address] [place], [address] RBC (Bld) [#/Vol] 3.21 10*6/uL Low 4.2-5.4 [facility] Comment on above: Performed By: #### L 500.2500, L100.0100 #### [facility] [address] [place], [address] RDW SD 47.3 fl High 35.1-43.9 [facility] Comment on above: Performed By: #### L 500.2500, L100.0100 #### [facility] Laboratory [address] [place], [address] WBC (Bld) [#/Vol] 7.1 10*3/uL Normal 4.4-11.0 [facility] Comment on above: Performed By: #### L 500.2500, L100.0100 #### [facility] Laboratory [address] [place], [address] Consultation - Nephrologyon 10-07-2024 Consultation - Nephrology [facility] Medical Records Department [address] [place] [address] Consultation - Nephrology 10/07/24 1123 MR#: [id number] Acct: [id number] Name: LUCILLE THURMAN Rep #: [id number] : 1935 89 From: Shanelle Daly MD PCP: AMAURY Louise Status:ADM IN Location: [place] [address] Assessment Plan Assessment/Plan (1) NEELIMA (acute kidney [...] heart catheterization on 10/06/2024 and received contrast. [facility] Medical History Anemia Diabetes Non-smoker Skin cancer [...] and orien (more content not included)... Normal [facility] Creatinine, Urineon 10-07-19 25 URINE CREAT 51.80 mg/dL Normal NO RANGE EST. [facility] Comment on above: Performed By: #### L 100.0100, L500.2500 #### [facility] Laboratory [address] [facility] [place], [place], [address] Kidney and Bladderon 025 Kidney and Bladder [facility] Imaging Services [address] [place], [place] [address] Kidney and Bladder MR#: [id number] Acct: [id number] Name: LUCILLE THURMAN Rep #: [id number] : 1935 F 89 From: Gideon Correia MD PCP: AMAURY Louise Status: ADM IN Study: Kidney and Bladder Date of Exam: 10/07/24 Exam# [id number] Ordering Dr: Tone Bethea [place] [id number] STUDY: RENAL ULTRASOUND - COMPLETE REASON FOR [...] CC: AMAURY Sandoval; Dr. Tone Bethea MD Clearance Center Manager: Signed Normal [facility] Urea Nitrogen, Urineon 10-07 URINE UREA 546 mg/dL Normal NO RANGE EST. [facility] Comment on above: Performed By: #### L 100.0100, L500.2500 #### [facility] Laboratory [address] [place], [address] Urinalysis, Completeon 10-07 EPI,SQUAMOUS 0-5 SEEN Normal 5-10 [facility] Comment on above: Order Comment: CLEAN CATCH Performed By: #### L 100.0100, L500.2500 #### [facility] Laboratory [address] [place], [address] BACTERIA 0 SEEN Normal None Seen [facility] Comment on above: Order Comment: CLEAN CATCH Performed By: #### L 100.0100, L500.2500 #### [facility] Laboratory [address] [place], [address] Mucus Ql (Urine sed) 0 SEEN Normal [facility] Comment on above: Order Comment: CLEAN CATCH Performed By: #### L 100.0100, L500.2500 #### [facility] Laboratory [address] [place], [address] RBC 0 SEEN Normal 0-5 [facility] Comment on above: Order Comment: CLEAN CATCH Performed By: #### L 100.0100, L500.2500 #### [facility] Laboratory [address] [place], [address] WBC 0 SEEN Normal 0-5 [facility] Comment on above: Order Comment: CLEAN CATCH Performed By: #### L 100.0100, L500.2500 #### [facility] Laboratory [address] [place], [address] Basic Metabolic Profile (BMP )on 10-06-2024 BUN/CRE 27.5 RATIO High 10-20 [facility] Comment on above: Performed By: #### L 500.2500, L100.0100 #### [facility] Laboratory [address] [place], [address] CA,Total 9.0 mg/dL Normal 8.5-10.1 [facility] Comment on above: Performed By: #### L 500.2500, L100.0100 #### [facility] Laboratory [address] [place], [address] Chloride [Moles/Vol] 102 mmol/L Normal 98-107 [facility] Comment on above: Performed By: #### L 500.2500, L100.0100 #### [facility] Laboratory [address] [place], [address] CO2 [Moles/Vol] 28.0 mmol/L Normal 21.0-32.0 [facility] Comment on above: Performed By: #### L 500.2500, L100.0100 #### [facility] Laboratory [address] [place], [address] Creatinine [Mass/Vol] 1.67 mg/dL High 0.55-1.02 [facility] Comment on above: Result Comment: The validity of the calculated GFR GFRAA in patients over 70 years has not been determined. Clinical correlation is essential. Performed By: #### L 500.2500, L100.0100 #### [facility] Laboratory [address] [place], [address] ECRCL 21.44 ml/min Normal [facility] Comment on above: Performed By: #### L 500.2500, L100.0100 #### [facility] Laboratory [address] [place], [address] EST GFR - AA 37 mL/min Low >60 [facility] Comment on above: Result Comment: Afri can Chinese GFR Calc Performed By: #### L 500.2500, L100.0100 #### [facility] Laboratory [address] [place], [address] GAP 8 Normal 5-15 [facility] Comment on above: Performed By: #### L 500.2500, L100.0100 #### [facility] Laboratory [address] [place], [address] GFR/1.73 sq M.predicted among non-blacks MDRD (S/P/Bld) [Vol rate/Area] 31 mL/min/{1.73_m2} Low >60 [facility] Comment on above: Result Comment: Non- GFR Calc Performed By: #### L 500.2500, L100.0100 #### [facility] Laboratory [address] [place], [address] Glucose [Mass/Vol] 142 mg/dL High 74-106 [facility] Comment on above: Result Comment: Fast ing Glucose result greater than or equal to 126 mg/dL suggests DIABETES MELLITUS per A.D.A. criteria. Performed By: #### L 500.2500, L100.0100 #### [facility] Laboratory [address] [place], [address] Potassium [Moles/Vol] 3.5 mmol/L Normal 3.5-5.1 [facility] Comment on above: Performed By: #### L 500.2500, L100.0100 #### [facility] Laboratory [address] [place], [address] Sodium [Moles/Vol] 138 mmol/L Normal 136-145 [facility] Comment on above: Performed By: #### L 500.2500, L100.0100 #### [facility] Laboratory [address] [place], [address] Urea nitrogen [Mass/Vol] 46 mg/dL High 7-18 [facility] Comment on above: Performed By: #### L 500.2500, L100.0100 #### [facility] Laboratory [address] [place], [address] CBC W/Diff, Automatedon 09-20 Absolute Lymph 1.46 X10 3/uL Normal 0.83-4.51 [facility] Comment on above: Performed By: #### L 500.2500, L100.0100 #### [facility] Laboratory [address] [place], [address] Absolute Neut 5.3 X10 3/uL Normal 2.0-7.7 [facility] Comment on above: Performed By: #### L 500.2500, L100.0100 #### [facility] Laboratory [address] [place], [address] Basophils/100 WBC (Bld) 0.5 % Normal 0-1 [facility] Comment on above: Performed By: #### L 500.2500, L100.0100 #### [facility] Laboratory [address] [place], [address] Eosinophils/100 WBC (Bld) 1.3 % Normal 0-5 [facility] Comment on above: Performed By: #### L 500.2500, L100.0100 #### [facility] Laboratory [address] [place], [address] Erythrocyte distribution width (RBC) [Ratio] 14.1 % Normal 11.6-14.6 [facility] Comment on above: Performed By: #### L 500.2500, L100.0100 #### [facility] Laboratory [address] [place], [address] Hematocrit (Bld) [Volume fraction] 29.6 % Low 37-47 [facility] Comment on above: Performed By: #### L 500.2500, L100.0100 #### [facility] Laboratory [address] [place], [address] Hemoglobin (Bld) [Mass/Vol] 9.6 g/dL Low 12.0-15.0 [facility] Comment on above: Performed By: #### L 500.2500, L100.0100 #### [facility] Laboratory [address] [place], [address] IG% 0.300 Normal 0.0-0.9 [facility] Comment on above: Result Comment: IG% - Immature Granulocytes (promyelocytes, myelocytes and metamyelocytes) > 1% indicates that a LEFT SHIFT is Present. Performed By: #### L 500.2500, L100.0100 #### [facility] Laboratory [address] [place], [address] Lymphocytes/100 WBC (Bld) 19.2 % Normal 19-41 [facility] Comment on above: Performed By: #### L 500.2500, L100.0100 #### [facility] Laboratory [address] [place], [address] MCH (RBC) [Entitic mass] 29.5 pg Normal 27.0-32.0 [facility] Comment on above: Performed By: #### L 500.2500, L100.0100 #### [facility] Laboratory [address] [place], [address] MCHC (RBC) [Mass/Vol] 32.4 g/dL Normal 32-36 [facility] Comment on above: Performed By: #### L 500.2500, L100.0100 #### [facility] Laboratory [address] [place], [address] MCV (RBC) [Entitic vol] 91.1 fL Normal 81-99 [facility] Comment on above: Performed By: #### L 500.2500, L100.0100 #### [facility] Laboratory [address] [place], [address] Monocytes/100 WBC (Bld) 9.3 % Normal 0-10 [facility] Comment on above: Performed By: #### L 500.2500, L100.0100 #### [facility] Laboratory [address] [place], [address] Neutrophils/100 WBC (Bld) 69.4 % Normal 47-70 [facility] Comment on above: Performed By: #### L 500.2500, L100.0100 #### [facility] Laboratory [address] [place], [address] Nucleated RBC (Bld) [#/Vol] 0 10*3/uL Normal 0-5 [facility] Comment on above: Performed By: #### L 500.2500, L100.0100 #### [facility] Laboratory [address] [place], [address] Platelet mean volume (Bld) [Entitic vol] 9.8 fL Normal 6.2-12.0 [facility] Comment on above: Performed By: #### L 500.2500, L100.0100 #### [facility] Laboratory [address] [place], [address] Platelets (Bld) [#/Vol] 218 10*3/uL Normal 150-450 [facility] Comment on above: Performed By: #### L 500.2500, L100.0100 #### [facility] Laboratory [address] [place], [address] RBC (Bld) [#/Vol] 3.25 10*6/uL Low 4.2-5.4 [facility] Comment on above: Performed By: #### L 500.2500, L100.0100 #### [facility] Laboratory [address] [place], [address] RDW SD 46.4 fl High 35.1-43.9 [facility] Comment on above: Performed By: #### L 500.2500, L100.0100 #### [facility] Laboratory [address] [place], [address] WBC (Bld) [#/Vol] 7.6 10*3/uL Normal 4.4-11.0 [facility] Comment on above: Performed By: #### L 500.2500, L100.0100 #### [facility] Laboratory [address] [place], [address] Cardiac Cath Diagnosticon Cardiac Cath Diagnostic [facility] Imaging Services [address] [place] [address] Cardiac Cath Diagnostic MR#: [id number] Acct: [id number] Name: LUCILLE THURMAN Rep #: [id number] : 1935 89 From: Jonah Bashir MD PCP: AMAURY Louise Status:ADM IN Patient Name: LUCILLE THURMAN Study Date: 10/06/2024 Performing: Jonah Bashir MD Ht: 62 inches 157.48 cm : 1935 Wt: 162.04 lbs 73.5 kg Age: 89 Gender: female BSA: 1.75 PROCEDURE(S) PERFORMED DC01-(02141)LHC/COR/LV CLINICAL PROFILE AND INDICATIONS Indications: ACS > [...] multiple views using a 5 Fr. 4.0 [place] catheter. Right Coronary Artery selective angiography was then performed in multiple views using a 5 Fr. 4.0 [place] catheter. Left Ventriculography was performed in [facility]ID [...] MD 10/06/24 1235 Date [facility] Bash[facility] Signature: Date (if indicated) CC: AMAURY Sandoval; Dr. Jonah Bashir MD; Dr. Tone Bethea MD Date Dictated: 10/06/24 1209 Date Transcribed: 10/06/24 1234 Clearance Center Manager: ANNALISA Dominique Normal [facility] [facility] Consult[facility] - Cardiologyon 10-06-2024 Consultation - Cardiology [facility] Medical Records Department [address] [place] [id number] Consultation - Cardiology 10/06/24 0835 MR#: [id number] Acct: [id number] Name: LUCILLE THURMAN Rep #: [id number] : 1935 89 From: Jonah Bashir MD PCP: AMAURY Louise Status:ADM IN Location: [place] [id number] Assessment Plan Assessment/Plan (1) NSTEMI (non-ST elevated [...] further chest pains or shortness of breath. [facility] Medical History Anemia Diabetes Non-smoker Skin cancer [...] 10/06/24 03:03 (more content not included)... Normal [facility] D-Dimer Quantitative (DVT/PE )on 10-06-2024 D-DIMER QUANT 0.89 FEU/ug/m Invalid Interpretation Code 0.27-0.49 [facility] Comment on above: Order Comment: CRITI WESTON VALUE CALLED TO RADHA [id number]/17/25 0944 Miryam Allen.RESULTS READ BACK BY SAME. Result Comment: D-Di alvaro ELEVATED (>0.49): Additional studies and clinical assessments are indicated to conclude diagnosis of: Deep Vein Thrombosis (DVT) or Pulmonary Embolism (PE) Performed By: #### L 500.2500, L100.0100 #### [facility] Laboratory [address] [place], [address] Lipid Profileon 10-06-2024 Cholesterol [Mass/Vol] 123 mg/dL Normal 200 [facility] Comment on above: Result Comment: <200 mg/dL Desirable 200-240 mg/dL Borderline >240 mg/dL High Risk Performed By: #### L 100.0100, L500.2500 #### [facility] Laboratory [address] [place], [address] Cholesterol in HDL [Mass/Vol] 47 mg/dL Normal [facility] Comment on above: Result Comment: The drugs N-Acetylcysteine and Metamizole may falsely depress this assay. Reference Range HDL <40 mg/dL Low HDL Cholesterol HDL >or= 60 mg/dL High HDL Cholesterol Performed By: #### L 100.0100, L500.2500 #### [facility] [address] [place], [address] Cholesterol in LDL [Mass/Vol] 60 mg/dL Normal 0-130 [facility] Comment on above: Performed By: #### L 100.0100, L500.2500 #### [facility] Laboratory [address] [place], [address] Cholesterol in VLDL [Mass/Vol] 16 mg/dL Normal 5-40 [facility] Comment on above: Performed By: #### L 100.0100, L500.2500 #### [facility] Laboratory [address] [place], [address] Triglyceride [Mass/Vol] 79 mg/dL Normal [facility] Comment on above: Result Comment: The drugs N-Acetylcysteine and Metamizole may falsely depress this assay. Serum Triglycerides Reference Interval Normal <150 mg/dL Borderline high 150 - 199 mg/dL High 200 - 499 mg/dL Very High > or = 500 mg/dL Performed By: #### L 100.0100, L500.2500 #### [facility] Laboratory [address] [place], [address] Partial Thromboplast Timeon 10-06-2024 aPTT Coag (Bld) [Time] 59.4 s High 24.1-36.2 [facility] Comment on above: Performed By: #### L 500.2500, L100.0100 #### [facility] Laboratory [address] [facility] [place], [address] aPTT Coag (Bld) [Time] 58.2 s High 24.1-36.2 [facility] Comment on above: Order Comment: Comme nts: for heparin gtt Performed By: #### L 300.4310 #### [facility] [address] [place], [address] Stress Reporton 10-06-2024 Stress Report [facility] Cardiovascular Services [address] [place] [address] MR#: [id number] Acct: [id number] Name: LUCILLE THURMAN Rep #: [id number] : 1935 89 From: Jonah Bashir MD [...] of 50%. This note was generated with [employer] software. It may contain incorrect words, spelling, and punctuation that were not noted in checking the note before signing. 10/06/24 1112 Date Jonah Bashir MD CC: AMAURY Sandoval; Dr. Julio Pickens MD; Dr. Jenifer Valente DO; Dr. Tone Bethea MD Date Dictated: 10/06/24 1110 Date Transcribed: 10/06/241109 Clearance Center Manager: ANNALISA Signed Normal [facility] Venous Duplex US - Satya Extre mon 10-06-2024 Venous Duplex US - Satya Extrem [facility] Cardiovascular Services [address] [place] [address] Venous Duplex US - Satya Extrem 10/06/24 1340 MR#: [id number] Acct: [id number] Name: LUCILLE THURMAN Rep #: [id number] : 1935 89 From: Tan Harris MD Attending Dr: Dr. Tone Bethea MD Status: ADM IN Ordering Dr: Tone Bethea MD Date: 10/06/24 Location: [facility] Sex: F C Admitted: 10/04/24 Reason For [...] Physician: Treva Sandoval Performed By: Silvio Reynaga, RVT 10/06/242356 Date Tan Harris MD CC: AMAURY Sandoval; Dr. Tone Bethea MD Date Dictated: 10/06/24 1340 Date Transcribed: 10/06/242356 Clearance Center Manager: Signed Normal [facility] Basic Metabolic Profile (BMP )on 10-05-2024 BUN Normal 7-18 [facility] Comment on above: Result Comment: OVER LAPPING- CMP ORDERED FOR MORNING RUN Performed By: #### L 100.0100, L500.2500 #### [facility] Laboratory [address] [place], [address] BUN/CRE Normal 10-20 [facility] Comment on above: Result Comment: OVER LAPPING- CMP ORDERED FOR MORNING RUN Performed By: #### L 100.0100, L500.2500 #### [facility] Laboratory [address] [place], [address] CA,Total Normal 8.5-10.1 [facility] Comment on above: Result Comment: OVER LAPPING- CMP ORDERED FOR MORNING RUN Performed By: #### L 100.0100, L500.2500 #### [facility] Laboratory [address] [place], [address] CL Normal 98-107 [facility] Comment on above: Result Comment: OVER LAPPING- CMP ORDERED FOR MORNING RUN Performed By: #### L 100.0100, L500.2500 #### [facility] Laboratory [address] [place], [address] CO2 Normal 21.0-32.0 [facility] Comment on above: Result Comment: OVER LAPPING- CMP ORDERED FOR MORNING RUN Performed By: #### L 100.0100, L500.2500 #### [facility] Laboratory [address] [place], [address] CREAT,SERUM Normal 0.55-1.02 [facility] Comment on above: Result Comment: OVER LAPPING- CMP ORDERED FOR MORNING RUN Performed By: #### L 100.0100, L500.2500 #### [facility] Laboratory [address] [place], [address] EST GFR Normal >60 [facility] Comment on above: Result Comment: OVER LAPPING- CMP ORDERED FOR MORNING RUN Performed By: #### L 100.0100, L500.2500 #### [facility] [address] [place], [address] EST GFR - AA Normal >60 [facility] Comment on above: Result Comment: OVER LAPPING- CMP ORDERED FOR MORNING RUN Performed By: #### L 100.0100, L500.2500 #### [facility] Laboratory [address] [place], [address] GAP Normal 5-15 [facility] Comment on above: Result Comment: OVER LAPPING- CMP ORDERED FOR MORNING RUN Performed By: #### L 100.0100, L500.2500 #### [facility] [address] [place], [address] GLU Normal 74-106 [facility] Comment on above: Result Comment: OVER LAPPING- CMP ORDERED FOR MORNING RUN Performed By: #### L 100.0100, L500.2500 #### [facility] [address] [place], [address] Potassium Normal 3.5-5.1 [facility] Comment on above: Result Comment: OVER LAPPING- CMP ORDERED FOR MORNING RUN Performed By: #### L 100.0100, L500.2500 #### [facility] [address] [place], [address] Basic Metabolic Profile (BMP) Normal 136-145 [facility] Comment on above: Result Comment: OVER LAPPING- CMP ORDERED FOR MORNING RUN Performed By: #### L 100.0100, L500.2500 #### [facility] [address] [place], [address] Bedside Glucoseon 10-05-2024 FINGERSTICK GLU 171 mg/dL High 74-106 [facility] Comment on above: Result Comment: LOAN GEMENT OF PATIENT CARE PER NURSING PROTOCOL Performed By: #### L 100.0100, L500.2500 #### [facility] Laboratory [address] [place], [address] FINGERSTICK GLU 158 mg/dL High 74-106 [facility] Comment on above: Result Comment: LOAN GEMENT OF PATIENT CARE PER NURSING PROTOCOL Performed By: #### L 500.2500, L100.0100 #### [facility] [address] [place], [address] FINGERSTICK GLU 102 mg/dL Normal 74-106 [facility] Comment on above: Result Comment: LOAN GEMENT OF PATIENT CARE PER NURSING PROTOCOL Performed By: #### L 100.0100, L500.2500 #### [facility] Laboratory [address] [place], [address] CBC W/Diff, Automatedon - Absolute Lymph 1.49 X10 3/uL Normal 0.83-4.51 [facility] Comment on above: Performed By: #### L 501.080 #### [facility] Laboratory [address] [place], [address] Absolute Neut 6.9 X10 3/uL Normal 2.0-7.7 [facility] Comment on above: Performed By: #### L 501.080 #### [facility] [address] [place], [address] Basophils/100 WBC (Bld) 0.4 % Normal 0-1 [facility] Comment on above: Performed By: #### L 501.080 #### [facility] [address] [place], [address] Eosinophils/100 WBC (Bld) 0.6 % Normal 0-5 [facility] Comment on above: Performed By: #### L 501.080 #### [facility] [address] [place], [address] Erythrocyte distribution width (RBC) [Ratio] 14.1 % Normal 11.6-14.6 [facility] Comment on above: Performed By: #### L 501.080 #### [facility] [address] [place], [address] Hematocrit (Bld) [Volume fraction] 29.1 % Low 37-47 [facility] Comment on above: Performed By: #### L 501.080 #### [facility] [address] [place], [address] Hemoglobin (Bld) [Mass/Vol] 9.5 g/dL Low 12.0-15.0 [facility] Comment on above: Performed By: #### L 501.080 #### [facility] [address] [place], [address] IG% 0.300 Normal 0.0-0.9 [facility] Comment on above: Result Comment: IG% - Immature Granulocytes (promyelocytes, myelocytes and metamyelocytes) > 1% indicates that a LEFT SHIFT is Present. Performed By: #### L 501.080 #### [facility] [address] [place], [address] Lymphocytes/100 WBC (Bld) 15.8 % Low 19-41 [facility] Comment on above: Performed By: #### L 501.080 #### [facility] [address] [place], [address] MCH (RBC) [Entitic mass] 29.6 pg Normal 27.0-32.0 [facility] Comment on above: Performed By: #### L 501.080 #### [facility] [address] [place], [address] MCHC (RBC) [Mass/Vol] 32.6 g/dL Normal 32-36 [facility] Comment on above: Performed By: #### L 501.080 #### [facility] [address] [place], [address] MCV (RBC) [Entitic vol] 90.7 fL Normal 81-99 [facility] Comment on above: Performed By: #### L 501.080 #### [facility] [address] [place], [address] Monocytes/100 WBC (Bld) 9.4 % Normal 0-10 [facility] Comment on above: Performed By: #### L 501.080 #### [facility] [address] [place], [address] Neutrophils/100 WBC (Bld) 73.5 % High 47-70 [facility] Comment on above: Performed By: #### L 501.080 #### [facility] [address] [place], [address] Nucleated RBC (Bld) [#/Vol] 0 10*3/uL Normal 0-5 [facility] Comment on above: Performed By: #### L 501.080 #### [facility] [address] [place], [address] Platelet mean volume (Bld) [Entitic vol] 9.4 fL Normal 6.2-12.0 [facility] Comment on above: Performed By: #### L 501.080 #### [facility] [address] [place], [address] Platelets (Bld) [#/Vol] 213 10*3/uL Normal 150-450 [facility] Comment on above: Performed By: #### L 501.080 #### [facility] [address] [place], [address] RBC (Bld) [#/Vol] 3.21 10*6/uL Low 4.2-5.4 [facility] Comment on above: Performed By: #### L 501.080 #### [facility] [address] [place], [address] RDW SD 46.2 fl High 35.1-43.9 [facility] Comment on above: Performed By: #### L 501.080 #### [facility] [address] [place], [address] WBC (Bld) [#/Vol] 9.4 10*3/uL Normal 4.4-11.0 [facility] Comment on above: Performed By: #### L 501.080 #### [facility] [address] [place], [address] Comprehensive Metabolic Prof ilon 10-05-2024 Albumin [Mass/Vol] 3.1 g/dL Low 3.2-5.0 [facility] Comment on above: Performed By: #### L 501.080 #### [facility] [address] [place], [address] Albumin/Globulin [Mass ratio] 0.9 {ratio} Normal 0.9-2.4 [facility] Comment on above: Performed By: #### L 501.080 #### [facility] [address] [place], [address] ALK P 79 U/L Normal 45-117 [facility] Comment on above: Performed By: #### L 501.080 #### [facility] [address] [place], [address] ALT [Catalytic activity/Vol] 45 U/L Normal 13-56 [facility] Comment on above: Performed By: #### L 501.080 #### [facility] [address] [place], [address] AST [Catalytic activity/Vol] 34 U/L Normal 15-37 [facility] Comment on above: Performed By: #### L 501.080 #### [facility] [address] [place], [address] Bilirubin [Mass/Vol] 0.90 mg/dL Normal 0.20-1.00 [facility] Comment on above: Result Comment: For patients on eltrombopag therapy, use of Dimension Piercy TBIL is not recommended. Performed By: #### L 501.080 #### [facility] [address] [place], [address] BUN/CRE 26.9 RATIO High 10-20 [facility] Comment on above: Performed By: #### L 501.080 #### [facility] [address] [place], [address] CA,Total 8.9 mg/dL Normal 8.5-10.1 [facility] Comment on above: Performed By: #### L 501.080 #### [facility] [address] [place], [address] Chloride [Moles/Vol] 106 mmol/L Normal 98-107 [facility] Comment on above: Performed By: #### L 501.080 #### [facility] [address] [place], [address] CO2 [Moles/Vol] 25.0 mmol/L Normal 21.0-32.0 [facility] Comment on above: Performed By: #### L 501.080 #### [facility] [address] [place], [address] Creatinine [Mass/Vol] 1.34 mg/dL High 0.55-1.02 [facility] Comment on above: Result Comment: The validity of the calculated GFR GFRAA in patients over 70 years has not been determined. Clinical correlation is essential. Performed By: #### L 501.080 #### [facility] [address] [place], [address] ECRCL 26.72 ml/min Normal [facility] Comment on above: Performed By: #### L 501.080 #### [facility] [address] [place], [address] EST GFR - AA 48 mL/min Low >60 [facility] Comment on above: Result Comment: Afri can Chinese GFR Calc Performed By: #### L 501.080 #### [facility] [address] [place], [address] GAP 7 Normal 5-15 [facility] Comment on above: Performed By: #### L 501.080 #### [facility] [address] [place], [address] GFR/1.73 sq M.predicted among non-blacks MDRD (S/P/Bld) [Vol rate/Area] 40 mL/min/{1.73_m2} Low >60 [facility] Comment on above: Result Comment: Non- GFR Calc Performed By: #### L 501.080 #### [facility] [address] [place], [address] Globulin (S) [Mass/Vol] 3.4 g/dL Normal 2.2-4.2 [facility] Comment on above: Performed By: #### L 501.080 #### [facility] [address] [place], [address] Glucose [Mass/Vol] 109 mg/dL High 74-106 [facility] Comment on above: Result Comment: Fast ing Glucose result from 100 to 125 mg/dL suggests IMPAIRED HOMEOSTASIS per A.D.A. criteria. Performed By: #### L 501.080 #### [facility] [address] [place], [address] Potassium [Moles/Vol] 3.6 mmol/L Normal 3.5-5.1 [facility] Comment on above: Performed By: #### L 501.080 #### [facility] [address] [place], [address] Sodium [Moles/Vol] 138 mmol/L Normal 136-145 [facility] Comment on above: Performed By: #### L 501.080 #### [facility] [address] [place], [address] T PROT 6.5 g/dL Normal 6.4-8.2 [facility] Comment on above: Performed By: #### L 501.080 #### [facility] [address] [place], [address] Urea nitrogen [Mass/Vol] 36 mg/dL High 7-18 [facility] Comment on above: Performed By: #### L 501.080 #### [facility] [address] [place], [address] Magnesiumon 10-05-2024 Magnesium [Mass/Vol] 1.9 mg/dL Normal 1.6-2.6 [facility] Comment on above: Performed By: #### L 501.080 #### [facility] [address] [place], [address] Partial Thromboplast Timeon 10-05-2024 aPTT Coag (Bld) [Time] 60.5 s High 24.1-36.2 [facility] Comment on above: Performed By: #### L 100.0100, L500.2500 #### [facility] [address] [place], [address] aPTT Coag (Bld) [Time] 58.6 s High 24.1-36.2 [facility] Comment on above: Order Comment: Comme nts: heparin gtt Performed By: #### L 500.2500, L100.0100 #### [facility] [address] [place], [address] aPTT Coag (Bld) [Time] 206.1 s Invalid Interpretation Code 24.1-36.2 [facility] Comment on above: Order Comment: Comme nts: heparin gtt Result Comment: CRIT ICAL VALUE CALLED TO SUSAN SIMON 10/05/24 0442 Bel[place]an [place]ona. RESULTS READ BACK BY SAME. Performed By: #### L 501.080 #### [facility] [address] [facility] [place], [address] Phosphoruson 10-05-2024 Phosphate [Mass/Vol] 3.6 mg/dL Normal 2.5-4.9 [facility] Comment on above: Performed By: #### L 501.080 #### [facility] [address] [place], [address] Thyroid Stim Hormone (TSH)on 10-05-2024 TSH 1.050 uIU/mL Normal 0.358-3.740 [facility] Comment on above: Performed By: #### L 501.080 #### [facility] [address] [place], [address] BNP,B-Type NATRIURETIC PEPTI Eugenia 10-04-2024 Natriuretic peptide B (Bld) [Mass/Vol] 496.4 pg/mL High 0-100 [facility] Comment on above: Performed By: #### L 500.2500, L100.0100 #### [facility] [address] [place], [address] Basic Metabolic Profile (BMP )on 10-04-2024 BUN/CRE 24.6 RATIO High 10-20 [facility] Comment on above: Order Comment: Comme nts: SPECIMEN #3 'TROP' Serial specimen #1, #2 or #3: 3 Performed By: #### L 501.4020, L500.2500 #### [facility] [address] [place], [address] CA,Total 9.0 mg/dL Normal 8.5-10.1 [facility] Comment on above: Order Comment: Comme nts: SPECIMEN #3 'TROP' Serial specimen #1, #2 or #3: 3 Performed By: #### L 501.4020, L500.2500 #### [facility] [address] [place], [address] Chloride [Moles/Vol] 108 mmol/L High 98-107 [facility] Comment on above: Order Comment: Comme nts: SPECIMEN #3 'TROP' Serial specimen #1, #2 or #3: 3 Performed By: #### L 501.4020, L500.2500 #### [facility] [address] [place], [address] CO2 [Moles/Vol] 24.0 mmol/L Normal 21.0-32.0 [facility] Comment on above: Order Comment: Comme nts: SPECIMEN #3 'TROP' Serial specimen #1, #2 or #3: 3 Performed By: #### L 501.4020, L500.2500 #### [facility] [address] [place], [address] Creatinine [Mass/Vol] 1.34 mg/dL High 0.55-1.02 [facility] Comment on above: Order Comment: Comme nts: SPECIMEN #3 'TROP' Serial specimen #1, #2 or #3: 3 Result Comment: The validity of the calculated GFR GFRAA in patients over 70 years has not been determined. Clinical correlation is essential. Performed By: #### L 501.4020, L500.2500 #### [facility] [address] [place], [address] ECRCL 26.72 ml/min Normal [facility] Comment on above: Order Comment: Comme nts: SPECIMEN #3 'TROP' Serial specimen #1, #2 or #3: 3 Performed By: #### L 501.4020, L500.2500 #### [facility] [address] [place], [address] EST GFR - AA 48 mL/min Low >60 [facility] Comment on above: Order Comment: Comme nts: SPECIMEN #3 'TROP' Serial specimen #1, #2 or #3: 3 Result Comment: Afri can Chinese GFR Calc Performed By: #### L 501.4020, L500.2500 #### [facility] [address] [place], [address] GAP 7 Normal 5-15 [facility] Comment on above: Order Comment: Comme nts: SPECIMEN #3 'TROP' Serial specimen #1, #2 or #3: 3 Performed By: #### L 501.4020, L500.2500 #### [facility] [address] [place], [address] GFR/1.73 sq M.predicted among non-blacks MDRD (S/P/Bld) [Vol rate/Area] 40 mL/min/{1.73_m2} Low >60 [facility] Comment on above: Order Comment: Comme nts: SPECIMEN #3 'TROP' Serial specimen #1, #2 or #3: 3 Result Comment: Non- GFR Calc Performed By: #### L 501.4020, L500.2500 #### [facility] [address] [place], [address] Glucose [Mass/Vol] 151 mg/dL High 74-106 [facility] Comment on above: Order Comment: Comme nts: SPECIMEN #3 'TROP' Serial specimen #1, #2 or #3: 3 Result Comment: Fast ing Glucose result greater than or equal to 126 mg/dL suggests DIABETES MELLITUS per A.D.A. criteria. Performed By: #### L 501.4020, L500.2500 #### [facility] [address] [place], [address] Potassium [Moles/Vol] 4.0 mmol/L Normal 3.5-5.1 [facility] Comment on above: Order Comment: Comme nts: SPECIMEN #3 'TROP' Serial specimen #1, #2 or #3: 3 Performed By: #### L 501.4020, L500.2500 #### [facility] [address] [place], [address] Sodium [Moles/Vol] 139 mmol/L Normal 136-145 [facility] Comment on above: Order Comment: Comme nts: SPECIMEN #3 'TROP' Serial specimen #1, #2 or #3: 3 Performed By: #### L 501.4020, L500.2500 #### [facility] [address] [place], [address] Urea nitrogen [Mass/Vol] 33 mg/dL High 7-18 [facility] Comment on above: Order Comment: Comme nts: SPECIMEN #3 'TROP' Serial specimen #1, #2 or #3: 3 Performed By: #### L 501.4020, L500.2500 #### [facility] [address] [place], [address] BUN/CRE 25.4 RATIO High 10-20 [facility] Comment on above: Order Comment: Comme nts: SPECIMEN #2'TROP' Serial specimen #1, #2 or #3: 2 Performed By: #### L 100.0100, L500.2500 #### [facility] [address] [place], [address] CA,Total 9.4 mg/dL Normal 8.5-10.1 [facility] Comment on above: Order Comment: Comme nts: SPECIMEN #2'TROP' Serial specimen #1, #2 or #3: 2 Performed By: #### L 100.0100, L500.2500 #### [facility] [address] [place], [address] Chloride [Moles/Vol] 108 mmol/L High 98-107 [facility] Comment on above: Order Comment: Comme nts: SPECIMEN #2'TROP' Serial specimen #1, #2 or #3: 2 Performed By: #### L 100.0100, L500.2500 #### [facility] [address] [place], [address] CO2 [Moles/Vol] 24.0 mmol/L Normal 21.0-32.0 [facility] Comment on above: Order Comment: Comme nts: SPECIMEN #2'TROP' Serial specimen #1, #2 or #3: 2 Performed By: #### L 100.0100, L500.2500 #### [facility] [address] [place], [address] Creatinine [Mass/Vol] 1.22 mg/dL High 0.55-1.02 [facility] Comment on above: Order Comment: Comme nts: SPECIMEN #2'TROP' Serial specimen #1, #2 or #3: 2 Result Comment: The validity of the calculated GFR GFRAA in patients over 70 years has not been determined. Clinical correlation is essential. Performed By: #### L 100.0100, L500.2500 #### [facility] [address] [facility] [address] ECRCL 29.34 ml/min Normal [facility] Comment on above: Order Comment: Comme nts: SPECIMEN #2'TROP' Serial specimen #1, #2 or #3: 2 Performed By: #### L 100.0100, L500.2500 #### [facility] [address] [place], [address] EST GFR - AA 53 mL/min Low >60 [facility] Comment on above: Order Comment: Comme nts: SPECIMEN #2'TROP' Serial specimen #1, #2 or #3: 2 Result Comment: Afri can Chinese GFR Calc Performed By: #### L 100.0100, L500.2500 #### [facility] [address] [place], [address] GAP 7 Normal 5-15 [facility] Comment on above: Order Comment: Comme nts: SPECIMEN #2'TROP' Serial specimen #1, #2 or #3: 2 Performed By: #### L 100.0100, L500.2500 #### [facility] [address] [place], [address] GFR/1.73 sq M.predicted among non-blacks MDRD (S/P/Bld) [Vol rate/Area] 44 mL/min/{1.73_m2} Low >60 [facility] Comment on above: Order Comment: Comme nts: SPECIMEN #2'TROP' Serial specimen #1, #2 or #3: 2 Result Comment: Non- GFR Calc Performed By: #### L 100.0100, L500.2500 #### [facility] [address] [place], [address] Glucose [Mass/Vol] 175 mg/dL High 74-106 [facility] Comment on above: Order Comment: Comme nts: SPECIMEN #2'TROP' Serial specimen #1, #2 or #3: 2 Result Comment: Fast ing Glucose result greater than or equal to 126 mg/dL suggests DIABETES MELLITUS per A.D.A. criteria. Performed By: #### L 100.0100, L500.2500 #### [facility] [address] [place], [address] Potassium [Moles/Vol] 4.1 mmol/L Normal 3.5-5.1 [facility] Comment on above: Order Comment: Comme nts: SPECIMEN #2'TROP' Serial specimen #1, #2 or #3: 2 Performed By: #### L 100.0100, L500.2500 #### [facility] [address] [place], [address] Sodium [Moles/Vol] 139 mmol/L Normal 136-145 [facility] Comment on above: Order Comment: Comme nts: SPECIMEN #2'TROP' Serial specimen #1, #2 or #3: 2 Performed By: #### L 100.0100, L500.2500 #### [facility] [address] [place], [address] Urea nitrogen [Mass/Vol] 31 mg/dL High 7-18 [facility] Comment on above: Order Comment: Comme nts: SPECIMEN #2'TROP' Serial specimen #1, #2 or #3: 2 Performed By: #### L 100.0100, L500.2500 #### [facility] [address] [place], [address] BUN/CRE 24.0 RATIO High 10-20 [facility] Comment on above: Performed By: #### L 501.080 #### [facility] [address] [place], [address] CA,Total 9.9 mg/dL Normal 8.5-10.1 [facility] Comment on above: Performed By: #### L 501.080 #### [facility] [address] [place], [address] Chloride [Moles/Vol] 110 mmol/L High 98-107 [facility] Comment on above: Performed By: #### L 501.080 #### [facility] [address] [place], [address] CO2 [Moles/Vol] 24.0 mmol/L Normal 21.0-32.0 [facility] Comment on above: Performed By: #### L 501.080 #### [facility] [address] [place], [address] Creatinine [Mass/Vol] 1.21 mg/dL High 0.55-1.02 [facility] Comment on above: Result Comment: The validity of the calculated GFR GFRAA in patients over 70 years has not been determined. Clinical correlation is essential. Performed By: #### L 501.080 #### [facility] [address] [place], [address] ECRCL 30.42 ml/min Normal [facility] Comment on above: Performed By: #### L 501.080 #### [facility] [address] [place], [address] EST GFR - AA 54 mL/min Low >60 [facility] Comment on above: Result Comment: Afri can Chinese GFR Calc Performed By: #### L 501.080 #### [facility] [address] [place], [address] GAP 5 Normal 5-15 [facility] Comment on above: Performed By: #### L 501.080 #### [facility] [address] [place], [address] GFR/1.73 sq M.predicted among non-blacks MDRD (S/P/Bld) [Vol rate/Area] 45 mL/min/{1.73_m2} Low >60 [facility] Comment on above: Result Comment: Non- GFR Calc Performed By: #### L 501.080 #### [facility] [address] [place], [address] Glucose [Mass/Vol] 143 mg/dL High 74-106 [facility] Comment on above: Result Comment: Fast ing Glucose result greater than or equal to 126 mg/dL suggests DIABETES MELLITUS per A.D.A. criteria. Performed By: #### L 501.080 #### [facility] [address] [place], [address] Potassium [Moles/Vol] 4.4 mmol/L Normal 3.5-5.1 [facility] Comment on above: Performed By: #### L 501.080 #### [facility] [address] [place], [address] Sodium [Moles/Vol] 139 mmol/L Normal 136-145 [facility] Comment on above: Performed By: #### L 501.080 #### [facility] [address] [place], [address] Urea nitrogen [Mass/Vol] 29 mg/dL High 7-18 [facility] Comment on above: Performed By: #### L 501.080 #### [facility] [address] [place], [address] BUN/CRE 24.0 RATIO High 10-20 [facility] Comment on above: Order Comment: 'TROP ' Serial specimen #1, #2 or #3: 1 Performed By: #### L 500.2500, L100.0100 #### [facility] [address] [place], [address] CA,Total 9.7 mg/dL Normal 8.5-10.1 [facility] Comment on above: Order Comment: 'TROP ' Serial specimen #1, #2 or #3: 1 Performed By: #### L 500.2500, L100.0100 #### [facility] [address] [place], [address] Chloride [Moles/Vol] 110 mmol/L High 98-107 [facility] Comment on above: Order Comment: 'TROP ' Serial specimen #1, #2 or #3: 1 Performed By: #### L 500.2500, L100.0100 #### [facility] [address] [place], [address] CO2 [Moles/Vol] 26.0 mmol/L Normal 21.0-32.0 [facility] Comment on above: Order Comment: 'TROP ' Serial specimen #1, #2 or #3: 1 Performed By: #### L 500.2500, L100.0100 #### [facility] [address] [place], [address] Creatinine [Mass/Vol] 1.21 mg/dL High 0.55-1.02 [facility] Comment on above: Order Comment: 'TROP ' Serial specimen #1, #2 or #3: 1 Result Comment: The validity of the calculated GFR GFRAA in patients over 70 years has not been determined. Clinical correlation is essential. Performed By: #### L 500.2500, L100.0100 #### [facility] [address] [place], [address] ECRCL 30.42 ml/min Normal [facility] Comment on above: Order Comment: 'TROP ' Serial specimen #1, #2 or #3: 1 Performed By: #### L 500.2500, L100.0100 #### [facility] [address] [place], [address] EST GFR - AA 54 mL/min Low >60 [facility] Comment on above: Order Comment: 'TROP ' Serial specimen #1, #2 or #3: 1 Result Comment: Afri can Chinese GFR Calc Performed By: #### L 500.2500, L100.0100 #### [facility] [address] [place], [address] GAP 4 Low 5-15 [facility] Comment on above: Order Comment: 'TROP ' Serial specimen #1, #2 or #3: 1 Performed By: #### L 500.2500, L100.0100 #### [facility] [address] [place], [address] GFR/1.73 sq M.predicted among non-blacks MDRD (S/P/Bld) [Vol rate/Area] 45 mL/min/{1.73_m2} Low >60 [facility] Comment on above: Order Comment: 'TROP ' Serial specimen #1, #2 or #3: 1 Result Comment: Non- GFR Calc Performed By: #### L 500.2500, L100.0100 #### [facility] [address] [place], [address] Glucose [Mass/Vol] 138 mg/dL High 74-106 [facility] Comment on above: Order Comment: 'TROP ' Serial specimen #1, #2 or #3: 1 Result Comment: Fast ing Glucose result greater than or equal to 126 mg/dL suggests DIABETES MELLITUS per A.D.A. criteria. Performed By: #### L 500.2500, L100.0100 #### [facility] [address] [place], [address] Potassium [Moles/Vol] 4.4 mmol/L Normal 3.5-5.1 [facility] Comment on above: Order Comment: 'TROP ' Serial specimen #1, #2 or #3: 1 Performed By: #### L 500.2500, L100.0100 #### [facility] [address] [place], [address] Sodium [Moles/Vol] 140 mmol/L Normal 136-145 [facility] Comment on above: Order Comment: 'TROP ' Serial specimen #1, #2 or #3: 1 Performed By: #### L 500.2500, L100.0100 #### [facility] [address] [place], [address] Urea nitrogen [Mass/Vol] 29 mg/dL High 7-18 [facility] Comment on above: Order Comment: 'TROP ' Serial specimen #1, #2 or #3: 1 Performed By: #### L 500.2500, L100.0100 #### [facility] [address] [place], [address] Bedside Glucoseon 10-04-2024 FINGERSTICK GLU 146 mg/dL High 74-106 [facility] Comment on above: Result Comment: LOAN GEMENT OF PATIENT CARE PER NURSING PROTOCOL Performed By: #### L 100.0100, L500.2500 #### [facility] [address] [place], [address] FINGERSTICK GLU 151 mg/dL High 74-106 [facility] Comment on above: Result Comment: LOAN GEMENT OF PATIENT CARE PER NURSING PROTOCOL Performed By: #### L 501.080 #### [facility] [address] [place], [address] [facility] K[facility] TEST Positive Normal [facility] Comment on above: Performed By: #### L 100.0100, L500.2500 #### [facility] [address] [place], [address] Base excess Calc (Bld) [Moles/Vol] -2 mmol/L Normal -2 to +2 [facility] Comment on above: Performed By: #### L 100.0100, L500.2500 #### [facility] [address] [place], [address] Blood Gas Type ART Normal [facility] Comment on above: Performed By: #### L 100.0100, L500.2500 #### [facility] [address] [place], [address] CO2 [Moles/Vol] 23 mmol/L Normal [facility] Comment on above: Performed By: #### L 100.0100, L500.2500 #### [facility] [address] [place], [address] Comment 14 6 Normal [facility] Comment on above: Performed By: #### L 100.0100, L500.2500 #### [facility] [address] [place], [address] FI02 50.0 Normal [facility] Comment on above: Performed By: #### L 100.0100, L500.2500 #### [facility] [address] [place], [address] HCO3 (Bld) [Moles/Vol] 22.2 mmol/L Normal 22-26 [facility] Comment on above: Performed By: #### L 100.0100, L500.2500 #### [facility] [address] [place], [address] Mode Not entered Normal [facility] Comment on above: Performed By: #### L 100.0100, L500.2500 #### [facility] [address] [place], [address] O2 Delivery Dev BiPAP Normal [facility] Comment on above: Performed By: #### L 100.0100, L500.2500 #### [facility] [address] [place], [address] pCO2 34.7 mmHg Low 35-45 [facility] Comment on above: Performed By: #### L 100.0100, L500.2500 #### [facility] [address] [place], [address] pH (Bld) 7.41 [pH] Normal 7.35-7.45 [facility] Comment on above: Performed By: #### L 100.0100, L500.2500 #### [facility] [address] [place], [address] PO2 105 mmHG High 75-100 [facility] Comment on above: Performed By: #### L 100.0100, L500.2500 #### [facility] [address] [place], [address] SITE R Radial Normal [facility] Comment on above: Performed By: #### L 100.0100, L500.2500 #### [facility] [address] [place], [address] SO2 98 Normal 95-99 [facility] Comment on above: Performed By: #### L 100.0100, L500.2500 #### [facility] [address] [place], [address] CBC W/Diff, Automatedon 01-1 Absolute Lymph 1.46 X10 3/uL Normal 0.83-4.51 [facility] Comment on above: Performed By: #### L 100.0100, L500.2500 #### [facility] [address] [place], [address] Absolute Neut 5.2 X10 3/uL Normal 2.0-7.7 [facility] Comment on above: Performed By: #### L 100.0100, L500.2500 #### [facility] [address] [place], [address] Basophils/100 WBC (Bld) 0.8 % Normal 0-1 [facility] Comment on above: Performed By: #### L 100.0100, L500.2500 #### [facility] [address] [place], [address] Eosinophils/100 WBC (Bld) 0.9 % Normal 0-5 [facility] Comment on above: Performed By: #### L 100.0100, L500.2500 #### [facility] [address] [place], [address] Erythrocyte distribution width (RBC) [Ratio] 14.0 % Normal 11.6-14.6 [facility] Comment on above: Performed By: #### L 100.0100, L500.2500 #### [facility] [address] [place], [address] Hematocrit (Bld) [Volume fraction] 34.0 % Low 37-47 [facility] Comment on above: Performed By: #### L 100.0100, L500.2500 #### [facility] [address] [place], [address] Hemoglobin (Bld) [Mass/Vol] 11.0 g/dL Low 12.0-15.0 [facility] Comment on above: Performed By: #### L 100.0100, L500.2500 #### [facility] [address] [place], [address] IG% 0.300 Normal 0.0-0.9 [facility] Comment on above: Result Comment: IG% - Immature Granulocytes (promyelocytes, myelocytes and metamyelocytes) > 1% indicates that a LEFT SHIFT is Present. Performed By: #### L 100.0100, L500.2500 #### [facility] [address] [place], [address] Lymphocytes/100 WBC (Bld) 19.5 % Normal 19-41 [facility] Comment on above: Performed By: #### L 100.0100, L500.2500 #### [facility] [address] [place], [address] MCH (RBC) [Entitic mass] 30.1 pg Normal 27.0-32.0 [facility] Comment on above: Performed By: #### L 100.0100, L500.2500 #### [facility] [address] [place], [address] MCHC (RBC) [Mass/Vol] 32.4 g/dL Normal 32-36 [facility] Comment on above: Performed By: #### L 100.0100, L500.2500 #### [facility] [address] [place], [address] MCV (RBC) [Entitic vol] 92.9 fL Normal 81-99 [facility] Comment on above: Performed By: #### L 100.0100, L500.2500 #### [facility] [address] [place], [address] Monocytes/100 WBC (Bld) 8.4 % Normal 0-10 [facility] Comment on above: Performed By: #### L 100.0100, L500.2500 #### [facility] [address] [place], [address] Neutrophils/100 WBC (Bld) 70.1 % High 47-70 [facility] Comment on above: Performed By: #### L 100.0100, L500.2500 #### [facility] [address] [place], [address] Nucleated RBC (Bld) [#/Vol] 0 10*3/uL Normal 0-5 [facility] Comment on above: Performed By: #### L 100.0100, L500.2500 #### [facility] [address] [place], [address] Platelet mean volume (Bld) [Entitic vol] 9.5 fL Normal 6.2-12.0 [facility] Comment on above: Performed By: #### L 100.0100, L500.2500 #### [facility] [address] [place], [address] Platelets (Bld) [#/Vol] 239 10*3/uL Normal 150-450 [facility] Comment on above: Performed By: #### L 100.0100, L500.2500 #### [facility] [address] [place], [address] RBC (Bld) [#/Vol] 3.66 10*6/uL Low 4.2-5.4 [facility] Comment on above: Performed By: #### L 100.0100, L500.2500 #### [facility] [address] [place], [address] RDW SD 47.4 fl High 35.1-43.9 [facility] Comment on above: Performed By: #### L 100.0100, L500.2500 #### [facility] [address] [place], [address] WBC (Bld) [#/Vol] 7.5 10*3/uL Normal 4.4-11.0 [facility] Comment on above: Performed By: #### L 100.0100, L500.2500 #### [facility] [address] [place], [place], [address] Chest 1 View (Portable)on Chest 1 View (Portable) [facility] Imaging Services [address] [place] [address] Chest 1 View (Portable) MR#: [id number] Acct: [id number] Name: LUCILLE THURMAN Rep #: [id number] : 1935 F 89 From: Kareem amanda MD PCP: AMAURY Louise Status: REG ER Study: Chest 1 View (Portable) Date of Exam: 10/04/24 Exam# [id number] Ordering Dr: Julio Pickens [place] [id number] STUDY: X-RAY CHEST REASON FOR EXAM: Female, [...] Electronically Signed: Kareem Viera MD at 12:25 EST , CC: AMAURY Sandoval; Dr. Julio Pickens MD Clearance Center Manager: Signed Normal [facility] Echo Completeon 10-04-2024 Echo Complete [facility] [place] [address] Echo Complete 10/05/24 1027 MR#: [id number] Acct: [id number] Name: LUCILLE THURMAN Rep #: [id number] : 1935 89 From: Jonah Bashir MD Attending Dr: Dr. Tone Bethea MD Status: ADM IN Ordering Dr: Jenifer Valente DO Date: 10/04/24 Location: [facility] Sex: F C Admitted: 10/04/24 Reason For [...] 1326 Date Jonah Bashir MD CC: AMAURY Paezhof; Dr. Jenifer Valente DO; Dr. Tone Bethea MD Date Dictated: 10/05/24 1027 Date Transcribed: 10/05/24 1326 Clearance Center Manager: Signed Normal [facility] Emergency Department Summary on 10-04-2024 Emergency Department Summary [facility] Medical Records Department [address] [place] [address] Emergency Department Summary 10/04/24 MR#: [id number] Acct: [id number] Name: LUCILLE THURMAN Rep #: [id number] : 1935 89 From: Julio Pickens MD PCP: AMAURY Louise Status:REG ER Location: ED HPI History of Present Illness Chief Complaint: Shortness of Breath Narrative Narrative: 89-year-old female presents with increasing shortness of breath that started this morning. History and physical is mildly limited secondary to respiratory distress. Her daughter who is at the [facility] states that this morning, she started having increasing difficulty breathing. She is audibly rhonchorous. She complains of chest heaviness and difficulty breathing. She also states that she feels hot. Daughter states that her legs have been increasingly swollen recently as well. However, she does not have a history of COPD or CHF. [facility] Medical History (Updated 10/04/24 @ 14:43 [...] Respiratory Pattern (more content not included)... Normal [facility] H AND P Exam - Hospitaliston 10-04-2024 H&P Exam - Hospitalist [facility] Medical Records Department [address] [place] [address] H P Exam - Hospitalist 10/04/24 1440 MR#: [id number] Acct: [id number] Name: LUCILLE THURMAN Rep #: [id number] : 1935 89 From: Jenifer Valente DO PCP: AMAURY Louise Status:ADM IN [facility] General Date of Admission: 10/04/24 Date of Service: 10/04/24 Chief Complaint: Shortness of breath HPI Narrative LUCILLE THURMAN, is a 89 F who presented to the emergency department [facility] on 10/04/2024 with shortness of [...] and given a dose of IV Lasix. [facility] Medical History Anemia Diabetes Non-smoker Skin cancer [...] HEENT: De (more content not included)... Normal [facility] L501.4020on 10-04-2024 TROPONIN-I HS 1362 pg/mL Invalid Interpretation Code 3.0-54.0 [facility] Comment on above: Order Comment: Comme nts: SPECIMEN #3 'TROP' Serial specimen #1, #2 or #3: 3 Result Comment: Crit ical Result(s) Called at: 22:52:42 10/04/2024 by: ABDIAS CORRAL TO CARLOS KWAN. Results read back by same. Please Note: New Test Units and Gender Specific Reference Ranges. For more information see Policy Stat Procedure Piercy High Sensitivity Troponin (TNIH) and attachments. Performed By: #### L 501.4020, L500.2500 #### [facility] Laboratory [address] [place], [address] TROPONIN-I HS 1024 pg/mL Invalid Interpretation Code 3.0-54.0 [facility] Comment on above: Order Comment: Comme nts: SPECIMEN #2'TROP' Serial specimen #1, #2 or #3: 2 Result Comment: Crit ical Result(s) Called at: 19:07:57 10/04/2024 by: ABDIAS CHICAS. Results read back by same. Please Note: New Test Units and Gender Specific Reference Ranges. For more information see Policy Stat Procedure Piercy High Sensitivity Troponin (TNIH) and attachments. Performed By: #### L 100.0100, L500.2500 #### [facility] [address] [place], [address] TROPONIN-I HS 775 pg/mL Invalid Interpretation Code 3.0-54.0 [facility] Comment on above: Order Comment: 'TROP ' Serial specimen #1, #2 or #3: 1 Result Comment: Crit ical Result(s) Called at: 17:25:53 10/04/2024 by: ABDIAS BOSS. Results read back by same. Please Note: New Test Units and Gender Specific Reference Ranges. For more information see Policy Stat Procedure Piercy High Sensitivity Troponin (TNIH) and attachments. Performed By: #### L 501.4020 #### [facility] [address] [place], [address] TROPONIN-I HS 15 pg/mL Normal 3.0-54.0 [facility] Comment on above: Order Comment: 'TROP ' Serial specimen #1, #2 or #3: 1 Result Comment: Plea se Note: New Test Units and Gender Specific Reference Ranges. For more information see Policy Stat Procedure Piercy High Sensitivity Troponin (TNIH) and attachments. Performed By: #### L 500.2500, L100.0100 #### [facility] [address] [place], [address] M100.678on 01-15-2025 M100.678 Pending SARS-CoV-2 (COVID 19) Negative INFLUENZA A Negative INFLUENZA B Negative RSV PCR Negative Normal [facility] Comment on above: Performed By: #### L 100.0100, L500.2500 #### [facility] [address] [place], [address] Partial Thromboplast Timeon 10-04-2024 aPTT Coag (Bld) [Time] 25.2 s Normal 24.1-36.2 [facility] Comment on above: Performed By: #### L 100.0100, L500.2500 #### [facility] [address] [place], [address] Prothrombin Time w/INRon INR Coag (PPP) [Relative time] 1.1 {INR} Normal [facility] Comment on above: Performed By: #### L 100.0100, L500.2500 #### [facility] [address] [place], [address] PT Coag (PPP) [Time] 14.6 s Normal 11.7-14.9 [facility] Comment on above: Performed By: #### L 100.0100, L500.2500 #### [facility] [address] [place], [address] RESPIRATORY PANEL MOLECULARo n 10-04-2024 RP PANEL ADENOVIRUS Not Detected INFLUENZA A Not Detected INFLUENZA A (SUBTYPE H1) Not Detected INFLUENZA A (SUBTYPE H3) Not Detected INFLUENZA B Not Detected HUMAN METAPHNEUMO Not Detected PARAINFLUENZA 1 Not Detected PARAINFLUENZA 2 Not Detected PARAINFLUENZA 3 Not Detected PARAINFLUENZA 4 Not Detected RHINOVIRUS Not Detected RSV A Not Detected RSV B Not Detected Normal [facility] Comment on above: Performed By: #### L 501.4020, L500.2500 #### [facility] [address] [place], [address] Dario 09-18-2024 CNPN Telephone (FAMPWS) LUCILLE THURMAN ([id number]) 1935 F Do not c* Date Time Provider Department 09/18/24 ALLIE STANTON [facility] During your visit today, we recorded [...] when she got home she decided to pick up man sticks around her trailer. Patient states that she had to sit down after picking up stick. Please review and advise, YUDI Parikh Ashley, APRN.OCEAN FREIGHT MANAGER 09/18/2024 10:28 AM Signed Can you please [...] Encounter Status:Closed by MARLENA HAMPTON on 09/27/24 [facility] CNOVon 09-14-2024 CNOV Office Visit (FAMPWS ) LUCILLE THURMAN ([id number]) 1935 F Do not c* Date Time Provider Department 09/14/24 11:40 AM TANNHOF, TREVA FAMPWS During your visit today, we recorded the following information about you: Pulse Blood pressure Weight 75/minute 155/73 73 kg Treva Sandoval APRN.CNP 09/14/2024 2:01 PM Signed This is a [...] Lisinopril 40 mg daily. Checking BP at pnxg516's-160/50-70's. 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 Normal [facility] CNOVon 08-28-2024 CNOV Office Visit (FAMPWS ) LUCILLE THURMAN ([id number]) 1935 F Do not c* Date Time Provider Department 08/28/24 3:00 PM TREVA SANDOVAL During your visit today, we recorded the following information about you: Pulse Blood pressure Weight Height 73/minute 168/62 71.2 kg 1.6 m Treva Sandoval APRN.OCEAN FREIGHT MANAGER 08/28/2024 9:36 PM Signed This is a [...] of fall Hyperlipidemia Inflammatory disease of breast halfway (current) use 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 extermination inspector (current) use of oral hypoglycemic drugs Lumbar [...] DSTL METAR OSTEOT cant remember which foot ESOPHAGOGASTRODUODENOS COPY TRANSORAL DIAGNOSTIC 2014 Erosive gastritis, duodenal bulb [...] GI: No (more content not included)... Normal [facility] CNOVon 07-28-2024 CNOV Office Visit ([facility] ) LUCILLE THURMAN ([id number]) 1935 F Do not c* Date Time Provider Department 07/28/24 9:20 AM TREVA SANDOVAL During your visit today, we recorded the following information about you: Pulse Respiration Blood pressure Weight 78/minute 16/minute 158/70 71.6 kg Treva Sandoval APRN.OCEAN FREIGHT MANAGER 07/28/2024 12:28 PM Signed This is a [...] of fall Hyperlipidemia Inflammatory disease of breast extermination inspector (current) use 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 halfway (current) use of oral hypoglycemic drugs Lumbar [...] PFRMD 07/25/2001 Colonoscopy CORRJ HLX VLGS [facility] DSTL METAR OSTEOT cant remember which foot ESOPHAGOGASTRODUODENOS COPY TRANSORAL DIAGNOSTIC 2014 Erosive gastritis, duodenal bulb [...] status: Frantz (more content not included)... Normal [facility] ALBUMIN/CREATININE RATIO, UR INEon 07-27-2024 Albumin DL <= 20 mg/L (U) [Mass/Vol] 81.1 mg/L Normal [facility] Comment on above: Order Comment: Alfredo shay Type: BLOOD SPECIMEN Ordering Facility: [facility] Address: [address] [place] [address] Performed By: #### 5 5454-3 #### [facility] CLIA [id number] [address] [place] [address] [place] [address] [place] Albumin/Creatinine (U) [Mass ratio] 153 mg/g High <30 [facility] Comment on above: Order Comment: Alfredo shay Type: BLOOD SPECIMEN Ordering Facility: [facility] Address: [address] [place] [address] Result Comment: Adul t Male and Female Nephrotic Criteria: <30 mg/g is considered normal to mildly increased 30-300 mg/g is considered moderately increased >300 mg/g is considered severely increased KDIGO. (2013). KDIGO 2012 Clinical Practice Guideline for the Evaluation and Management of Chronic Kidney Disease. Official Journal of the International Society of Nephrology, 3(1), 1-150. Performed By: #### 5 5454-3 #### [facility] CLIA [id number] [address] [place] [address] [place] Creatinine (U) [Mass/Vol] 52.9 mg/dL Normal 20.0-300.0 [facility] Comment on above: Order Comment: Speci men Type: BLOOD SPECIMEN Ordering Facility: [facility] Address: [address] [place] [address] Performed By: #### 5 5454-3 #### [facility] CLIA [id number] [address] [place] [address] [place] Comprehensive metabolic 2000 panelon 07-27-2024 Albumin [Mass/Vol] 4.0 g/dL Normal 3.9-4.9 [facility] Comment on above: Order Comment: Speci men Type: BLOOD SPECIMEN Ordering Facility: [facility] Address: [address] [place] [address] Performed By: #### 5 5454-3 #### [facility] CLIA [id number] [address] [place] [address] [place] ALP [Catalytic activity/Vol] 72 U/L Normal 34-123 [facility] Comment on above: Order Comment: Speci men Type: BLOOD SPECIMEN Ordering Facility: [facility] Address: [address] [place] [address] Performed By: #### 5 5454-3 #### [facility] CLIA [id number] [address] [place] [address] [place] ALT [Catalytic activity/Vol] 16 U/L Normal 7-38 [facility] Comment on above: Order Comment: Speci men Type: BLOOD SPECIMEN Ordering Facility: [facility] Address: [facility] [place] [address] Performed By: #### 5 5454-3 #### [facility] CLIA [id number] [address] [place], [place] [address] [place] Anion gap [Moles/Vol] 13 mmol/L Normal 8-15 [facility] Comment on above: Order Comment: Speci men Type: BLOOD SPECIMEN Ordering Facility: [facility] Address: [address] [place] [address] Performed By: #### 5 5454-3 #### [facility] CLIA [id number] [address] [place] [address] [place] AST [Catalytic activity/Vol] 27 U/L Normal 13-35 [facility] Comment on above: Order Comment: Speci men Type: BLOOD SPECIMEN Ordering Facility: [facility] Address: [address] [place] [address] Performed By: #### 5 5454-3 #### [facility] CLIA [id number] [address] [place] [address] [place] Bilirubin [Mass/Vol] 0.5 mg/dL Normal 0.2-1.3 [place] Comment on above: Order Comment: Speci men Type: BLOOD SPECIMEN Ordering Facility: [facility] Address: [address] [place] [address] Performed By: #### 5 5454-3 #### [facility] CLIA [id number] [address] [place] [address] [place] Calcium [Mass/Vol] 9.3 mg/dL Normal 8.5-10.2 [facility] Comment on above: Order Comment: Speci men Type: BLOOD SPECIMEN Ordering Facility: [facility] Address: [address] [place] [address] Performed By: #### 5 5454-3 #### [facility] CLIA [id number] [address] [place] [address] [place] Chloride [Moles/Vol] 106 mmol/L Normal 98-107 [place] Comment on above: Order Comment: Speci men Type: BLOOD SPECIMEN Ordering Facility: [facility] Address: [address] [place] [address] Performed By: #### 5 5454-3 #### [facility] CLIA [id number] [address] [place] [address] [place] CO2 [Moles/Vol] 22 mmol/L Normal 22-30 [facility] Comment on above: Order Comment: Speci men Type: BLOOD SPECIMEN Ordering Facility: [facility] Address: [address] [place] [address] Performed By: #### 5 5454-3 #### [facility] CLIA [id number] [address] [place] [address] [place] Creatinine [Mass/Vol] 1.08 mg/dL High 0.58-0.96 [facility] Comment on above: Order Comment: Speci men Type: BLOOD SPECIMEN Ordering Facility: [facility] Address: [address] [place] [address] Performed By: #### 5 5454-3 #### [facility] CLIA [id number] [address] [place] [address] [place] Creatinine and Glomerular filtration rate.predicted panel (S/P/Bld) 49 mL/min/1.73m??? Low >=60 [facility] Comment on above: Order Comment: Speci men Type: BLOOD SPECIMEN Ordering Facility: [facility] Address: [address] [place] [address] Result Comment: Mami mated Glomerular Filtration Rate [...] accurately reflect actual GFR. Performed By: #### 5 5454-3 #### [facility] CLIA [id number] [address] [place] [address] [place] Glucose [Mass/Vol] 127 mg/dL High 74-99 [facility] Comment on above: Order Comment: Speci men Type: BLOOD SPECIMEN Ordering Facility: [facility] Address: [address] [place] [address] Result Comment: The Chinese Diabetes Association (ADA) provides guidance for cutoff [...] Standards of Medical Care in Diabetes 2016, Chinese Diabetes Association. Diabetes Care. 2016.39(Suppl 1). Performed By: #### 5 5454-3 #### [facility] CLIA [id number] [address] [place] [address] [place] Potassium [Moles/Vol] 4.4 mmol/L Normal 3.7-5.1 [facility] Comment on above: Order Comment: Speci men Type: BLOOD SPECIMEN Ordering Facility: [facility] Address: [address] [place], [place] [address] Performed By: #### 5 5454-3 #### [facility] CLIA [id number] [address] [place] [address] [place] Protein [Mass/Vol] 6.9 g/dL Normal 6.3-8.0 [facility] Comment on above: Order Comment: Speci men Type: BLOOD SPECIMEN Ordering Facility: [facility] Address: [address] [place] [address] Performed By: #### 5 5454-3 #### [facility] CLIA [id number] [address] [place] [address] [place] Sodium [Moles/Vol] 141 mmol/L Normal 136-144 [facility] Comment on above: Order Comment: Speci men Type: BLOOD SPECIMEN Ordering Facility: [facility] Address: [address] [place] [address] Performed By: #### 5 5454-3 #### [facility] CLIA [id number] [address] [place] [address] [place] Urea nitrogen [Mass/Vol] 25 mg/dL High 7-21 [facility] Comment on above: Order Comment: Speci men Type: BLOOD SPECIMEN Ordering Facility: [facility] Address: [address] [place] [address] Performed By: #### 5 5454-3 #### [facility] CLIA [id number] [address] [place] [address] [place] HbA1c (Bld)on 07-27-2024 Average glucose Estimated from glycated hemoglobin (Bld) [Mass/Vol] 134 mg/dL Normal [facility] Comment on above: Order Comment: Speci men Type: BLOOD SPECIMEN Ordering Facility: [facility] Address: [address] [place] [address] Result Comment: eAG: (Estimated average glucose) is a calculated value from HgbA1c and is marketing development representative of the average blood glucose level in the last 2-3 month period. Performed By: #### 5 5454-3 #### [facility] CLIA [id number] [address] [place] [address] [place] HbA1c (Bld) [Mass fraction] 6.3 % High 4.3-5.6 [facility] Comment on above: Order Comment: Speci men Type: BLOOD SPECIMEN Ordering Facility: [facility] Address: [address] [place] [address] Result Comment: Amer ican Diabetes Association guidelines indicate that patients with HgbA1c in the range 5.7-6.4% are at increased risk for development of diabetes, and intervention by lifestyle modification may be beneficial. HgbA1c greater or equal to 6.5% is considered diagnostic of diabetes. Performed By: #### 5 5454-3 #### [facility] CLIA [id number] [address] [place] [address] [place] Lipid 1996 panelon 4 Cholesterol [Mass/Vol] 142 mg/dL Normal <200 [facility] Comment on above: Order Comment: Alfredo shay Type: BLOOD SPECIMEN Ordering Facility: [facility] Address: [address] [place] [address] Result Comment: <200 mg/dL, Desirable 200-239 mg/dL, Borderline high >239 mg/dL, High Performed By: #### 5 5454-3 #### [facility] CLIA [id number] [address] [place] [address] [place] [facility] Cholesterol in HDL [Mass/Vol] 42 mg/dL Normal >39 [facility] Comment on above: Order Comment: Alfredo shay Type: BLOOD SPECIMEN Ordering Facility: [facility] Address: [address] [place] [address] Result Comment: 40-5 9 mg/dL, Acceptable >59 mg/dL, High: Negative risk factor for coronary heart disease <40 mg/dL, Low: Positive risk factor for coronary heart disease Performed By: #### 5 5454-3 #### [facility] CLIA [id number] [address] [place] [address] [place] Cholesterol in LDL [Mass/Vol] 80 mg/dL Normal <100 [facility] Comment on above: Order Comment: Alfredo shay Type: BLOOD SPECIMEN Ordering Facility: [facility] Address: [address] [place] [address] Result Comment: <100 mg/dL, Optimal 100-129 mg/dL, Near optimal/above optimal 130-159 mg/dL, Borderline high 160-189 mg/dL, High >189 mg/dL, Very high Secondary prevention optimal LDL Cholesterol levels are recommended to be < 70 mg/dL Performed By: #### 5 5454-3 #### [facility] CLIA [id number] [address] [place], [place] [address] [address] [place] Cholesterol in LDL/Cholesterol in HDL [Mass ratio] 1.90 {ratio} Normal <2.54 [facility] Comment on above: Order Comment: Alfredo shay Type: BLOOD SPECIMEN Ordering Facility: [facility] Address: [address] [place] [address] Result Comment: Refe ting: 1. National Cholesterol Education Program ATP III Guideline At-A-Glance Quick Desk Reference: National Heart, Lung, and Blood Dexter. National Institutes of Health. 2001: NIH Publication No. 01-3305. 2. An International Atherosclerosis Society position paper: global recommendations for the management of dyslipidemia: executive summary, Atherosclerosis. 2014: 232(2):410-413. Performed By: #### 5 5454-3 #### [facility] CLIA [id number] [address] [place] [address] [place] Cholesterol in VLDL [Mass/Vol] 20 mg/dL Normal <30 [facility] Comment on above: Order Comment: Alfredo shay Type: BLOOD SPECIMEN Ordering Facility: [facility] Address: [address] [place] [address] Performed By: #### 5 5454-3 #### [facility] CLIA [id number] [address] [place] [address] [place] Cholesterol non HDL [Mass/Vol] 100 mg/dL Normal <130 [facility] Comment on above: Order Comment: Alfredo shay Type: BLOOD SPECIMEN Ordering Facility: [facility] Address: [address] [place] [address] Result Comment: <130 mg/dL, Optimal 130-159 mg/dL, Near optimal/above optimal 160-189 mg/dL, Borderline high 190-219 mg/dL, High >219 mg/dL, Very high Secondary prevention optimal non HDL Cholesterol levels are recommended to be <100 mg/dL Performed By: #### 5 5454-3 #### [facility] CLIA [id number] [address] [place] [address] [place] Cholesterol.total/Amaya sterol in HDL [Mass ratio] 3.38 {ratio} Normal <5.10 [facility] Comment on above: Order Comment: Speci men Type: BLOOD SPECIMEN Ordering Facility: [facility] Address: [address] [place] [address] Performed By: #### 5 5454-3 #### [facility] CLIA [id number] [address] [place] [address] OF [facility] FASTING TIME 10 hrs Normal [facility] Comment on above: Order Comment: Speci men Type: BLOOD SPECIMEN Ordering Facility: [facility] Address: [address] [place] [address] Performed By: #### 5 5454-3 #### [facility] CLIA [id number] [address] [place] [address] [place] Triglyceride [Mass/Vol] 100 mg/dL Normal <150 [facility] Comment on above: Order Comment: Speci men Type: BLOOD SPECIMEN Ordering Facility: [facility] Address: [address] [place] [address] Result Comment: <150 mg/dL, Normal 150-199 mg/dL, Borderline high 200-499 mg/dL, High >499 mg/dL, Very high Performed By: #### 5 5454-3 #### [facility] CLIA [id number] [address] [place] [address] [place] XR Hand - bilateral PA and L ateral and Obliqueon 09-04-2022 IMPRESSION: Osteoarthritis. Clearance Center Manager: REJI Transcribe Date/Time: Sep 04 2022 3:32P Dictated by : Kyle VALENTIN MD This examination was interpreted and the report reviewed and electronically signed by: Kyle VALENTIN MD on Sep 04 2022 3:36PM [facility] DIVISION OF RADIOLOGY * * [...] DIVISION OF RADIOLOGY Provider, [facility] - 09/04/2022 * * *Final Report* * [...] joint spaces. No erosions. IMPRESSION IMPRESSION: Osteoarthritis. Clearance Center Manager: REJI Transcribe Date/Time: Sep 04 2022 3:32P Dictated by : Kyle VALENTIN MD This examination was interpreted and the report reviewed and electronically signed by: Kyle VALENTIN MD on Sep 04 2022 3:36PM EST [facility] XR Hand - bilateral PA and L ateral and ObliqueOrdered By: [facility] Provider on 09-04-2022 [facility] XR Hand - bilateral PA and L ateral and Obliqueon 09-03-2022 Radiology Study observation (narrative) [facility] SCREENINGon 02-12-2022 [facility] XR Knee - right AP and Later sadie 12-22-2021 IMPRESSION: 1. Mild degenerative changes. 2. Mild atherosclerotic disease. Clearance Center Manager: REJI Transcribe Date/Time: Dec 22 2021 5:45A Dictated by : KING TREVINO MD This examination was interpreted and the report reviewed and electronically signed by: KING TREVINO MD on Dec 22 2021 5:47AM EST DIVISION OF RADIOLOGY * * *Final Report* [...] of the vasculature. DIVISION OF RADIOLOGY Provider, [facility] - 12/22/2021 * * *Final Report* * [...] Mild degenerative changes. 2. Mild atherosclerotic disease. Clearance Center Manager: PSCB Transcribe Date/Time: Dec 22 2021 5:45A Dictated by : KING TREVINO MD This examination was interpreted and the report reviewed and electronically signed by: KING TREVINO MD on Dec 22 2021 5:47AM EST [facility] XR Knee - right AP and Later alOrdered By: Ccf Provider on 12-22-2021 [facility] XR Knee - right AP and Later sadie 12-19-2021 Radiology Study observation (narrative) [facility] XR Pelvis and Hip - left AP and Lateral frogon 10-31-2021 IMPRESSION: Postsurgical change. No complication. Osteoarthrosis of the hips. Clearance Center Manager: PSCRigo Transcribe Date/Time: Oct 31 2021 4:41P Dictated by : LEXIE CAMPA MD This examination was interpreted and the report reviewed and electronically signed by: LEXIE CAMPA MD on Oct 31 2021 4:42PM [facility] DIVISION OF RADIOLOGY * * [...] DIVISION OF RADIOLOGY Provider, [facility] - 10/31/2021 * * *Final Report* * [...] change. No complication. Osteoarthrosis of the hips. Clearance Center Manager: PSCRigo Transcribe Date/Time: Oct 31 2021 4:41P Dictated by : LEXIE CAMPA MD This examination was interpreted and the report reviewed and electronically signed by: LEXIE CAMPA MD on Oct 31 2021 4:42PM EST [facility] Radiology Study observation (narrative) [facility] XR Pelvis and Hip - left AP and Lateral frogOrdered By: Ccf Provider on 10-31-2021 [facility] SYD HARPER W Shawanda 02-06 [facility] CNNURSEon 11-07-2020 CNNURSE Nurse Visit (COVAMD) LUCILLE THURMAN ([id number]) 1935 F Date Time Provider Department 11/07/20 VLADIMIR HAMPTON JR During your visit today, we recorded the following information about you: Allergies As of Date: 11/07/2020 Noted Allergy Reaction METFORMIN 03/13/2013 6 - Diarrhea MORPHINE 02/14/2016 8 - GI Upset OXYCODONE 02/14/2016 8 - GI Upset PREVACID (LANSOPRAZOLE) 07/20/2005 Date Reviewed: 05/16/2020 Reviewed by: Radha ([facility]) ZEV Morris - Fully Assessed Order(s):[place] SARS-COV-2 VACCINE 2D DOSE APPT [[id number]] Order #: [id number] Prescriptions as of 11/07/2020 Sig: ATORVASTATIN 80 [...] (degenerative disc disease), cervical [M50.*09/29/2018 Encounter Status:Open Normal [facility] Vital Signs Date Time Vital Sign Value Performing Clinician Faci lity 03-08-2025 14:40-0400 Body temperature 97 [degF] Treva Sandoval SPANISH TRANSLATOR-C Work Phone: 6(679)577-976978 [place] [address] 03-08-2025 14:40-0400 Diastolic blood pressure 51 mm[Hg] Treva Sandoval SPANISH TRANSLATOR-C Work Phone: 7(085)817-310778 [place] [address] 03-08-2025 14:40-0400 Heart rate 59 /min Treva Richardtiara SPANISH TRANSLATOR-C Work Phone: 6(470)725-011978 [place] [address] 03-08-2025 14:40-0400 Respiratory rate 18 /min Treva Lori SPANISH TRANSLATOR-C Work Phone: 7(340)188-351478 [place] [address] 03-08-2025 14:40-0400 SaO2% (BldA) [Mass fraction] 96 % Treva Sandoval SPANISH TRANSLATOR-C Work Phone: 7(638)515-098478 [place] [address] 03-08-2025 14:40-0400 Systolic blood pressure 129 mm[Hg] Treva Sandoval SPANISH TRANSLATOR-C Work Phone: 9(597)479-244278 [place] [address] 03-07-2025 13:35-0400 Body height 162.56 cm Treva Sandoval SPANISH TRANSLATOR-C Work Phone: 7(623)743-996778 [place] [address] 03-07-2025 13:35-0400 Body mass index (BMI) [Ratio] 27.4 kg/m2 Treva Sandoval SPANISH TRANSLATOR-C Work Phone: 5(728)159-527378 [place] [address] 03-07-2025 13:35-0400 Body weight 72.6 kg Treva Ramosf SPANISH TRANSLATOR-C Work Phone: 9(817)408-580678 [place] [address] 03-07-2025 11:26-0400 Body temperature 97.8 [degF] Treva Ramosf SPANISH TRANSLATOR-C Work Phone: 5(948)468-326978 [place] [address] 03-07-2025 11:26-0400 Diastolic blood pressure 88 mm[Hg] Treva Ramosf SPANISH TRANSLATOR-C Work Phone: 6(466)166-572778 [place] [address] 03-07-2025 11:26-0400 Heart rate 61 /min Treva Ramosf SPANISH TRANSLATOR-C Work Phone: 7(963)907-616478 [place] [address] 03-07-2025 11:26-0400 Respiratory rate 14 /min Treva Ramosf SPANISH TRANSLATOR-C Work Phone: 0(422)410-033678 [place] [address] 03-07-2025 11:26-0400 SaO2% (BldA) [Mass fraction] 99 % Treva Ramosf SPANISH TRANSLATOR-C Work Phone: 6(088)820-202578 [place] [address] 03-07-2025 11:26-0400 Systolic blood pressure 125 mm[Hg] Treva Ramosf SPANISH TRANSLATOR-C Work Phone: 9(066)329-884178 [place] [address] 03-07-2025 09:52-0400 Body mass index (BMI) [Ratio] 28.7 kg/m2 Treva Sandoval SPANISH TRANSLATOR-C Work Phone: 8(179)128-980378 [place] [address] 03-07-2025 09:52-0400 Body weight 71.3 kg Treva Ramosf SPANISH TRANSLATOR-C Work Phone: 2(415)894-990978 [place] [address] 03-07-2025 09:51-0400 Body height 157.48 cm Treva Ramosf SPANISH TRANSLATOR-C Work Phone: 7(437)667-961078 [place] [address] 03-05-2025 16:49-0400 Body mass index (BMI) [Ratio] 27.3 kg/m2 Allie Stanton MD Work Phone: [facility] 03-05-2025 16:49-0400 Body weight 69.9 kg Allie Stanton MD Work Phone: [facility] 03-05-2025 16:49-0400 Diastolic blood pressure 72 mm[Hg] Allie Stanton MD Work Phone: [facility] 03-05-2025 16:49-0400 Heart rate 63 /min Allie Stanton MD Work Phone: [facility] 03-05-2025 16:49-0400 Respiratory rate 14 /min Allie Stanton MD Work Phone: [facility] 03-05-2025 16:49-0400 SaO2% (BldA) [Mass fraction] 96 % Allie Stanton MD Work Phone: [facility] 03-05-2025 16:49-0400 Systolic blood pressure 120 mm[Hg] Allie Stanton MD Work Phone: [facility] 03-03-2025 08:34-0400 Body temperature 98 [degF] Trevabob Paezhof SPANISH TRANSLATOR-C Work Phone: [facility] 03-03-2025 08:34-0400 Diastolic blood pressure 73 mm[Hg] Trevabob Paezhof SPANISH TRANSLATOR-C Work Phone: [facility] 03-03-2025 08:34-0400 Heart rate 88 /min Trevabob Paezhof SPANISH TRANSLATOR-C Work Phone: [facility] 03-03-2025 08:34-0400 Respiratory rate 18 /min Trevabob Paezhof SPANISH TRANSLATOR-C Work Phone: [facility] 03-03-2025 08:34-0400 SaO2% (BldA) [Mass fraction] 96 % Treva Jeanninehof SPANISH TRANSLATOR-C Work Phone: [facility] 03-03-2025 08:34-0400 Systolic blood pressure 172 mm[Hg] Treva Jeanninehof SPANISH TRANSLATOR-C Work Phone: [facility] 03-03-2025 06:54-0400 Body height 157.48 cm Trevabob Ramosf SPANISH TRANSLATOR-C Work Phone: [facility] 03-03-2025 06:54-0400 Body mass index (BMI) [Ratio] 28.6 kg/m2 Treva Paezhof SPANISH TRANSLATOR-C Work Phone: [facility] 03-03-2025 06:54-0400 Body weight 71 kg Treva Paezhof SPANISH TRANSLATOR-C Work Phone: [facility] 01-29-2025 08:52-0400 Body mass index (BMI) [Ratio] 27.46 kg/m2 Imtiaz Hodge METAL DRILL OPERATOR.OCEAN FREIGHT MANAGER Work Phone: [facility] 01-29-2025 08:52-0400 Body weight 70.31 kg Imtiaz Hodge METAL DRILL OPERATOR.OCEAN FREIGHT MANAGER Work Phone: [facility] 01-29-2025 08:52-0400 Diastolic blood pressure 75 mm[Hg] Imtiaz Hodge METAL DRILL OPERATOR.OCEAN FREIGHT MANAGER Work Phone: [facility] 01-29-2025 08:52-0400 Heart rate 67 /min Imtiaz Hodge METAL DRILL OPERATOR.OCEAN FREIGHT MANAGER Work Phone: [facility] 01-29-2025 08:52-0400 Respiratory rate 16 /min Imtiaz Hodge METAL DRILL OPERATOR.OCEAN FREIGHT MANAGER Work Phone: [facility] 01-29-2025 08:52-0400 SaO2% (BldA) [Mass fraction] 99 % Imtiaz Hodge METAL DRILL OPERATOR.OCEAN FREIGHT MANAGER Work Phone: [facility] 01-29-2025 08:52-0400 Systolic blood pressure 136 mm[Hg] Imtiaz Hodge METAL DRILL OPERATOR.OCEAN FREIGHT MANAGER Work Phone: [facility] 01-01-2025 08:25-0400 Body mass index (BMI) [Ratio] 28 kg/m2 Treva Paezhof SPANISH TRANSLATOR-C Work Phone: [facility] 01-01-2025 08:25-0400 Body weight 69.39 kg Trevabob Paezhof SPANISH TRANSLATOR-C Work Phone: [facility] 01-01-2025 08:25-0400 Diastolic blood pressure 62 mm[Hg] Trevabob Paezhof SPANISH TRANSLATOR-C Work Phone: [facility] 01-01-2025 08:25-0400 Heart rate 71 /min Treva Tannhof SPANISH TRANSLATOR-C Work Phone: [facility] 01-01-2025 08:25-0400 Respiratory rate 16 /min Treva Tannhof SPANISH TRANSLATOR-C Work Phone: [facility] 01-01-2025 08:25-0400 Systolic blood pressure 155 mm[Hg] Treva Tannhof SPANISH TRANSLATOR-C Work Phone: [facility] 10-11-2024 13:53-0500 Body mass index (BMI) [Ratio] 27.34 kg/m2 Treva Tannhof METAL DRILL OPERATOR.OCEAN FREIGHT MANAGER Work Phone: [facility] 10-11-2024 13:53-0500 Body weight 70 kg Treva Tannhof METAL DRILL OPERATOR.OCEAN FREIGHT MANAGER Work Phone: [facility] 10-11-2024 13:53-0500 Diastolic blood pressure 68 mm[Hg] Treva Tannhof METAL DRILL OPERATOR.OCEAN FREIGHT MANAGER Work Phone: [facility] 10-11-2024 13:53-0500 Heart rate 71 /min Treva Tannhof METAL DRILL OPERATOR.OCEAN FREIGHT MANAGER Work Phone: [facility] 10-11-2024 13:53-0500 Respiratory rate 16 /min Treva Tannhof METAL DRILL OPERATOR.OCEAN FREIGHT MANAGER Work Phone: [facility] 10-11-2024 13:53-0500 SaO2% (BldA) [Mass fraction] 100 % Treva Tannhof METAL DRILL OPERATOR.OCEAN FREIGHT MANAGER Work Phone: [facility] 10-11-2024 13:53-0500 Systolic blood pressure 140 mm[Hg] Treva Tannhof METAL DRILL OPERATOR.OCEAN FREIGHT MANAGER Work Phone: [facility] 09-14-2024 11:30-0500 Body mass index (BMI) [Ratio] 28.52 kg/m2 Treva Tannhof METAL DRILL OPERATOR.OCEAN FREIGHT MANAGER Work Phone: [facility] 09-14-2024 11:30-0500 Body weight 73.03 kg Treva Tannhof METAL DRILL OPERATOR.OCEAN FREIGHT MANAGER Work Phone: [facility] 09-14-2024 11:30-0500 Diastolic blood pressure 73 mm[Hg] Treva Tannhof METAL DRILL OPERATOR.OCEAN FREIGHT MANAGER Work Phone: [facility] 09-14-2024 11:30-0500 Heart rate 75 /min Treva Tannhof METAL DRILL OPERATOR.OCEAN FREIGHT MANAGER Work Phone: [facility] 09-14-2024 11:30-0500 SaO2% (BldA) [Mass fraction] 98 % Treva Tannhof METAL DRILL OPERATOR.OCEAN FREIGHT MANAGER Work Phone: [facility] 09-14-2024 11:30-0500 Systolic blood pressure 155 mm[Hg] Treva Tannhof METAL DRILL OPERATOR.OCEAN FREIGHT MANAGER Work Phone: [facility] 08-28-2024 14:54-0500 Body height 160 cm Treva Tannhof METAL DRILL OPERATOR.OCEAN FREIGHT MANAGER Work Phone: [facility] 08-28-2024 14:54-0500 Body mass index (BMI) [Ratio] 27.81 kg/m2 Treva Tannhof METAL DRILL OPERATOR.OCEAN FREIGHT MANAGER Work Phone: [facility] 08-28-2024 14:54-0500 Body weight 71.22 kg Treva Tannhof METAL DRILL OPERATOR.OCEAN FREIGHT MANAGER Work Phone: [facility] 08-28-2024 14:54-0500 Diastolic blood pressure 62 mm[Hg] Treva Tannhof METAL DRILL OPERATOR.OCEAN FREIGHT MANAGER Work Phone: [facility] 08-28-2024 14:54-0500 Heart rate 73 /min Treva Tannhof METAL DRILL OPERATOR.OCEAN FREIGHT MANAGER Work Phone: [facility] 08-28-2024 14:54-0500 Systolic blood pressure 168 mm[Hg] Treva Tannhof METAL DRILL OPERATOR.OCEAN FREIGHT MANAGER Work Phone: [facility] 07-28-2024 12:24-0500 Diastolic blood pressure 70 mm[Hg] Treva Tannhof METAL DRILL OPERATOR.OCEAN FREIGHT MANAGER Work Phone: [facility] 07-28-2024 12:24-0500 Systolic blood pressure 158 mm[Hg] Treva Tannhof METAL DRILL OPERATOR.OCEAN FREIGHT MANAGER Work Phone: [facility] 07-28-2024 09:14-0500 Body mass index (BMI) [Ratio] 27.96 kg/m2 Treva Tannhof METAL DRILL OPERATOR.OCEAN FREIGHT MANAGER Work Phone: [facility] 07-28-2024 09:14-0500 Body weight 71.6 kg Treva Tannhof METAL DRILL OPERATOR.OCEAN FREIGHT MANAGER Work Phone: [facility] 07-28-2024 09:14-0500 Heart rate 78 /min Treva Tannhof METAL DRILL OPERATOR.OCEAN FREIGHT MANAGER Work Phone: [facility] 07-28-2024 09:14-0500 Respiratory rate 16 /min Treva Tannhof METAL DRILL OPERATOR.OCEAN FREIGHT MANAGER Work Phone: [facility] 07-28-2024 09:14-0500 SaO2% (BldA) [Mass fraction] 98 % Treva Tannhof METAL DRILL OPERATOR.OCEAN FREIGHT MANAGER Work Phone: [facility] 01-12-2024 09:22-0400 Body mass index (BMI) [Ratio] 27.99 kg/m2 Treva Tannhof METAL DRILL OPERATOR.OCEAN FREIGHT MANAGER Work Phone: [facility] 01-12-2024 09:22-0400 Body weight 71.67 kg Treva Tannhof METAL DRILL OPERATOR.OCEAN FREIGHT MANAGER Work Phone: [facility] 01-12-2024 09:22-0400 Diastolic blood pressure 70 mm[Hg] Treva Tannhof METAL DRILL OPERATOR.OCEAN FREIGHT MANAGER Work Phone: [facility] 01-12-2024 09:22-0400 Heart rate 77 /min Treva Tannhof METAL DRILL OPERATOR.OCEAN FREIGHT MANAGER Work Phone: [facility] 01-12-2024 09:22-0400 Respiratory rate 16 /min Treva Tannhof METAL DRILL OPERATOR.OCEAN FREIGHT MANAGER Work Phone: [facility] 01-12-2024 09:22-0400 SaO2% (BldA) [Mass fraction] 98 % Treva Tannhof METAL DRILL OPERATOR.OCEAN FREIGHT MANAGER Work Phone: [facility] 01-12-2024 09:22-0400 Systolic blood pressure 130 mm[Hg] Treva Paezhof METAL DRILL OPERATOR.OCEAN FREIGHT MANAGER Work Phone: [facility] 11-26-2022 08:28-0500 Body weight 73.48 kg Treva Paezhof METAL DRILL OPERATOR.OCEAN FREIGHT MANAGER Work Phone: [facility] 11-26-2022 08:28-0500 Diastolic blood pressure 80 mm[Hg] Treva Paezhof METAL DRILL OPERATOR.OCEAN FREIGHT MANAGER Work Phone: [facility] 11-26-2022 08:28-0500 Heart rate 78 /min Treva Paezhof METAL DRILL OPERATOR.OCEAN FREIGHT MANAGER Work Phone: [facility] 11-26-2022 08:28-0500 Respiratory rate 16 /min Treva Paezhof METAL DRILL OPERATOR.OCEAN FREIGHT MANAGER Work Phone: [facility] 11-26-2022 08:28-0500 SaO2% (BldA) [Mass fraction] 98 % Treva Paezhof METAL DRILL OPERATOR.OCEAN FREIGHT MANAGER Work Phone: [facility] 11-26-2022 08:28-0500 Systolic blood pressure 140 mm[Hg] Treva Paezhof METAL DRILL OPERATOR.OCEAN FREIGHT MANAGER Work Phone: [facility] 11-17-2022 13:58-0500 Body temperature 97.3 [degF] Rui Mendez MD Work Phone: [facility] 11-17-2022 13:58-0500 Body weight 72.58 kg Rui Mendez MD Work Phone: [facility] 11-17-2022 13:58-0500 Diastolic blood pressure 70 mm[Hg] Rui Mendez MD Work Phone: [facility] 11-17-2022 13:58-0500 Heart rate 73 /min Rui Mendez MD Work Phone: [facility] 11-17-2022 13:58-0500 Respiratory rate 16 /min Rui Mendez MD Work Phone: [facility] 11-17-2022 13:58-0500 SaO2% (BldA) [Mass fraction] 96 % Rui Mendez MD Work Phone: [facility] 11-17-2022 13:58-0500 Systolic blood pressure 126 mm[Hg] Rui Mendez MD Work Phone: [facility] 09-03-2022 10:36-0500 Body weight 71.22 kg Treva Tannhof METAL DRILL OPERATOR.OCEAN FREIGHT MANAGER Work Phone: [facility] 09-03-2022 10:36-0500 Diastolic blood pressure 68 mm[Hg] Treva Tannhof METAL DRILL OPERATOR.OCEAN FREIGHT MANAGER Work Phone: [facility] 09-03-2022 10:36-0500 Heart rate 79 /min Treva Jeanninehof METAL DRILL OPERATOR.OCEAN FREIGHT MANAGER Work Phone: [facility] 09-03-2022 10:36-0500 Respiratory rate 16 /min Treva Jeanninehof METAL DRILL OPERATOR.OCEAN FREIGHT MANAGER Work Phone: [facility] 09-03-2022 10:36-0500 SaO2% (BldA) [Mass fraction] 97 % Treva Tannhof METAL DRILL OPERATOR.OCEAN FREIGHT MANAGER Work Phone: [facility] 09-03-2022 10:36-0500 Systolic blood pressure 160 mm[Hg] Treva Tannhof METAL DRILL OPERATOR.OCEAN FREIGHT MANAGER Work Phone: [facility] 12-19-2021 14:58-0400 Body weight 73.48 kg Khari Blaz METAL DRILL OPERATOR.OCEAN FREIGHT MANAGER, DNP Work Phone: [facility] 12-19-2021 14:58-0400 Diastolic blood pressure 68 mm[Hg] Khari Blaz METAL DRILL OPERATOR.OCEAN FREIGHT MANAGER, DNP Work Phone: [facility] 12-19-2021 14:58-0400 Heart rate 73 /min Khari Blaz METAL DRILL OPERATOR.OCEAN FREIGHT MANAGER, DNP Work Phone: [facility] 12-19-2021 14:58-0400 Respiratory rate 16 /min Khari Blaz METAL DRILL OPERATOR.OCEAN FREIGHT MANAGER, DNP Work Phone: [facility] 12-19-2021 14:58-0400 SaO2% (BldA) [Mass fraction] 98 % Khari Bita CODY.OCEAN FREIGHT MANAGER, DNP Work Phone: [facility] 12-19-2021 14:58-0400 Systolic blood pressure 126 mm[Hg] Khari Sunshine METAL DRILL OPERATOR.OCEAN FREIGHT MANAGER, [facility] Work Phone: [facility] Encounters Encounter Date Encounter Type Care Provider Facility Start: 03-08-2025 Non-patient / Non-visit Dr. Heidi Hawthorne MD -[facility] Work Phone: Start: 03-07-2025 Non-patient / Non-visit Dr. Heidi Hawthorne MD -[facility] Work Phone: Start: 03-07-2025 End: 03-07-2025 Telephone encounter Allie Stanton MD Work Phone: [facility] Comment on above: Patient Update Start: 03-07-2025 End: 03-08-2025 Evaluation and management of inpatient Dr. Chin Hawthorne MD -[facility] Work Phone: Start: 03-07-2025 End: 03-08-2025 observation encounter Treva Sandoval SPANISH TRANSLATOR-C Work Phone: [facility] Work Phone: Start: 03-05-2025 End: 03-05-2025 Office outpatient visit 15 minutes Allie Stanton MD Work Phone: [facility] Comment on above: Stage 3b chronic kid santosh disease (HCC) (Primary Dx); Acute midline low back pain without sciatica Start: 03-05-2025 End: 03-05-2025 ambulatory ALLIE STANTON Facility:[facility] Start: 03-03-2025 End: 03-03-2025 Emergency department patient visit Treva Sandoval SPANISH TRANSLATOR-C Work Phone: -Emergency Department Work Phone: Start: 02-22-2025 End: 02-22-2025 ambulatory Cathy Dugan RN [employer] Comment on above: Bi-Weekly Outreach ( Recurring) for Chronic Disease Management Start: 01-29-2025 End: 01-29-2025 Patient encounter procedure Imtiaz Hodge APRN.OCEAN FREIGHT MANAGER Work Phone: [facility] Comment on above: Controlled type 2 di [...] behavioral disorders Start: 01-29-2025 End: 01-29-2025 ambulatory IMTIAZ HODGE Facility:[facility] Start: 01-23-2025 End: 01-23-2025 ambulatory TREVA PAEZTiara Facility:[facility] Start: 01-01-2025 End: 01-01-2025 ambulatory [facility] Facility:[facility] Start: 01-01-2025 End: 01-01-[address] Jonah Bashir MD -[facility] Work Phone: Start: 12-18-2024 End: 12-19-2024 Refill Treva Sandoval APRN.OCEAN FREIGHT MANAGER Work Phone: [facility] Comment on above: Refill Request This is Deanna Toribio Start: 11-16-2024 End: 11-16-2024 Refill Imtiaz Hodge METAL DRILL OPERATOR.OCEAN FREIGHT MANAGER Work Phone: [facility] Comment on above: Refill Request Start: 10-30-2024 End: 10-30-2024 ambulatory JONAH BASHIR MD Facility:[facility] [place] Start: 10-30-2024 End: 10-30-2024 Patient encounter procedure JONAH BASHIR MD [facility] Start: 10-26-2024 End: 10-26-2024 ambulatory Iza Jameson RN Work Phone: [employer] Start: 10-26-2024 End: 10-26-2024 Telephone follow-up Iza Jameson RN Work Phone: [employer] Comment on above: Transition Of Care ( Follow up day 18) Weekly phone contact (Recurring) for Transitional Care Management Start: 10-20-2024 End: 10-20-2024 Refill Allie Stanton MD Work Phone: [facility] Comment on above: Refill Request Orders (Handicap ruiz card) Start: 10-19-2024 End: 10-19-2024 Patient Outreach Chinyere Pabon RN Work Phone: [employer] Comment on above: Weekly phone contact (Recurring) for Transitional Care Management Start: 10-16-2024 End: 10-16-2024 ambulatory [facility] Facility:[facility] Start: 10-14-2024 End: 10-18-2024 ambulatory Treva Sandoval APRN.OCEAN FREIGHT MANAGER Work Phone: [facility] [place] Comment on above: Kidney doctor Start: 10-12-2024 End: 10-12-2024 Patient Outreach Chinyere Pabon RN Work Phone: [employer] Comment on above: Transition Of Care ( TCM / [facility] dc 10/08/24) Initial phone contact for Transitional Care Management Start: 10-11-2024 End: 10-11-2024 Office outpatient visit 25 minutes Treva Sandoval METAL DRILL OPERATOR.OCEAN FREIGHT MANAGER Work Phone: [facility] [place] Comment on above: Hospital discharge f ollow-up (Primary Dx); Congestive heart failure, unspecified HF chronicity, unspecified heart failure type (HCC); Elevated troponin; Essential hypertension, benign; Stage 3 chronic kidney disease, unspecified whether stage 3a or 3b CKD (HCC); 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 3 chronic kidney disease, without long-term current use of insulin (HCC) Start: 10-11-2024 End: 10-11-2024 ambulatory [facility] Facility:[facility] Start: 10-10-2024 End: 10-10-2024 ambulatory [facility] Facility:[facility] Start: 10-09-2024 End: 01-17-2025 Telephone encounter Treva Sandoval APRN.OCEAN FREIGHT MANAGER Work Phone: [facility] Comment on above: Refill Request Start: 10-05-2024 ambulatory [facility] Facility :[facility] Start: 10-04-2024 End: 10-08-2024 Evaluation and management of inpatient Jenifer Valente Facility:[facility] Start: 10-04-2024 End: 10-04-2024 ambulatory Allie Stanton MD Work Phone: [facility] Comment on above: Breathing Problem Start: 09-18-2024 End: 09-27-2024 Telephone encounter Allie Stanton MD Work Phone: [facility] Comment on above: Patient Update Start: 09-14-2024 End: 09-14-2024 ambulatory [facility] Facility:[facility] Start: 09-14-2024 End: 09-14-2024 Patient encounter procedure Trvea Sandoval METAL DRILL OPERATOR.OCEAN FREIGHT MANAGER Work Phone: [facility] Comment on above: Bilateral leg edema (Primary Dx); Essential hypertension, benign; Stage 3 chronic kidney disease, unspecified whether stage 3a or 3b CKD (HCC); Hyperlipidemia LDL goal <100; 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 3 chronic kidney disease, without long-term current use of insulin ([facility]); Dry eye Start: 08-28-2024 End: 08-28-2024 Patient encounter procedure Treva Sandoval METAL DRILL OPERATOR.OCEAN FREIGHT MANAGER Work Phone: [facility] Comment on above: Essential hypertensi on, benign (Primary Dx); Stage 3 chronic kidney disease, unspecified whether stage 3a or 3b CKD (HCC) Start: 08-28-2024 End: 08-28-2024 ambulatory [facility] Facility:[facility] Start: 07-28-2024 End: 07-28-2024 Patient encounter procedure Treva Sandoval METAL DRILL OPERATOR.OCEAN FREIGHT MANAGER Work Phone: [facility] Comment on above: Controlled type 2 di abetes mellitus with stage 3 chronic kidney disease, without long-term current use of insulin (HCC) (Primary Dx); Essential hypertension, benign; Stage 3 chronic kidney disease, unspecified whether stage 3a or 3b CKD (HCC); Hyperlipidemia LDL goal <100; Gastroesophageal reflux disease without esophagitis Start: 07-28-2024 End: 07-28-2024 ambulatory Treva Sandoval METAL DRILL OPERATOR.OCEAN FREIGHT MANAGER Work Phone: [facility] Start: 07-27-2024 End: 07-27-2024 ambulatory [facility] Facility:[facility] Start: 03-17-2024 Refill Allie snell MD Work Phone: [facility] Comment on above: Refill Request Start: 03-16-2024 Refill Imtiaz NASSAR RN.OCEAN FREIGHT MANAGER Work Phone: [facility] Comment on above: Refill Request Start: 02-02-2024 Refill Allie snell MD Work Phone: [facility] Comment on above: Refill Request Start: 01-12-2024 End: 01-12-2024 Patient encounter procedure Treva Sandoval APRN.OCEAN FREIGHT MANAGER Work Phone: [facility] Comment on above: Controlled type 2 di abetes mellitus with stage 3 chronic kidney disease, without long-term current use of insulin (HCC) (Primary Dx); Essential hypertension, benign; Gastroesophageal reflux disease without esophagitis; Hyperlipidemia LDL goal <100; Bilateral hand pain Start: 04-15-2023 Refill Allie snell MD Work Phone: [facility] Comment on above: Refill Request Start: 02-17-2023 Telephone encounter Allie nielsen MD Work Phone: [facility] Comment on above: Rx refill; not on cu rrent med list Start: 01-25-2023 Refill Allie snell MD Work Phone: [facility] Comment on above: Refill Request Start: 12-18-2022 Refill Allie snell MD [facility]: [facility] Comment on above: Refill Request Start: 11-26-2022 End: 11-26-2022 Patient encounter procedure Treva Sandoval APRN.OCEAN FREIGHT MANAGER Work Phone: [facility] Comment on above: Controlled type 2 di abetes mellitus with stage 3 chronic kidney disease, without long-term current use of insulin (HCC) (Primary Dx); Essential hypertension, benign; Hyperlipidemia LDL goal <100; Gastroesophageal reflux disease with esophagitis without hemorrhage; Arthritis of hand Start: 11-17-2022 End: 11-17-2022 Patient encounter procedure Rui Mendez MD Work Phone: [facility] Comment on above: Sciatica, right side (Primary Dx) Start: 10-19-2022 Refill Allie snell MD Work Phone: [facility] Comment on above: Refill Request (PER PATIENT SHE IS STILL TAKING AMARYL 1 MG TABLET ONCE DAILY NO LONGER TAKING THE 2 MG THIS WAS REDUCED BY TRVEA ON 09/03/2022 PER PATIENT//); Refill Request Start: 10-07-2022 Telephone encounter Allie nielsen MD Work Phone: [facility] Comment on above: Medication Request ( Meloxicam); Nurse Triage Call (Questions on the medication and her symptoms) Start: 09-08-2022 ambulatory [facility] Comment on above: xray results Start: 09-08-2022 E-mail encounter carlos olson caregiver [facility] Provider [facility] Start: 09-08-2022 Telephone encounter Treva barber APRN.OCEAN FREIGHT MANAGER Work Phone: [facility] Comment on above: Results (X-ray hands ) Start: 09-03-2022 End: 09-03-2022 Subsequent hospital visit by physician Vu [facility] Work Phone: Radiology Comment on above: Bilateral hand pain [M79.641, M79.642] Start: 09-03-2022 End: 09-03-2022 Patient encounter procedure Treva Sandoval APRN.OCEAN FREIGHT MANAGER Work Phone: [facility] Comment on above: Bilateral hand pain (Primary Dx) Start: 02-12-2022 Documentation procedure Mammog darwin Coordinator [facility] Start: 02-12-2022 Letter encounter Mammography Coordinator [facility] Department Start: 02-12-2022 End: 02-12-2022 Subsequent hospital visit by physician Screen Mammo [facility] Comment on above: Encounter for screen ing mammogram for malignant neoplasm of breast [Z12.31] Start: 12-29-2021 Telephone encounter Khari mckeon APRN.BERNARDO, DNP Work Phone: [facility] Comment on above: Script for handicap placard Start: 12-19-2021 End: 12-19-2021 Subsequent hospital visit by physician Xr [facility] Work Phone: Radiology Comment on above: Chronic pain of righ t knee [M25.561, G89.29] Start: 12-19-2021 End: 12-19-2021 Patient encounter procedure Khari Sunshine APRN.BERNARDO, DNP Work Phone: [facility] Comment on above: Controlled type 2 di abetes mellitus without complication, without long-term current use of insulin (HCC) (Primary Dx); Stage 3b chronic kidney disease (HCC); Chronic pain of right knee; Encounter for screening mammogram for malignant neoplasm of breast Start: 10-31-2021 End: 10-31-2021 Subsequent hospital visit by physician Vu [facility] Work Phone: Radiology Comment on above: Left hip pain [M25.5 52] Start: 01-28-2021 Telephone encounter Khari mckeon APRN.OCEAN FREIGHT MANAGER, DNP Work Phone: [facility] Comment on above: Mammogram order Start: 04-26-2018 End: 07-05-2018 Patient encounter NISHA DONAHUE Facility:B Procedures Date Procedure Procedure Detail Performing Clinician Start: 03-08-2025 Estimated creatinine clearance Treva SMITHC Work Phone: Start: 03-07-2025 MRI of lumbar spine Skinny REBOLLEDO Work Phone: Start: 03-03-2025 Urnls dip stick/tabl et reagent auto microscopy Treva Sandoval SPANISH TRANSLATOR-C Work Phone: Start: 03-03-2025 CT of lumbar spine Prashant zuñiga Lori SPANISH TRANSLATOR-C Work Phone: Start: 01-29-2025 Adult depression scr eening assessment Imtiaz Parminder METAL DRILL OPERATOR.OCEAN FREIGHT MANAGER Work Phone: Start: 01-12-2024 Adult depression scr eening assessment Xr [facility] Work Phone: Start: 09-03-2022 Radex hand minimum 3 views Treva Lori METAL DRILL OPERATOR.OCEAN FREIGHT MANAGER Work Phone: Start: 02-12-2022 Screening mammograph y bi 2-view breast inc cad Khari Sunshine METAL DRILL OPERATOR.OCEAN FREIGHT MANAGER, [facility] Work Phone: Start: 12-19-2021 Radiologic examinati on knee 1/2 views Khari Sunshine APRN.OCEAN FREIGHT MANAGER, [facility] Work Phone: Start: 10-31-2021 Radex hip unilateral with pelvis 2-3 views Khari Sunshine APRN.[facility], [facility] Work Phone: Start: 09-20-2014 Cholecystectomy JONAH BASHIR MD Start: 09-20-2014 Colonoscopy JONAH SOLO MD Appendectomy JONAH BASHIR MD Carpal tunnel syndro me (disorder) JONAH BASHIR MD Comment on above: right Tonsillectomy and adenoidectomy JONAH BASHIR MD Total shoulder replacement A MONICA BASHIR MD Comment on above: & revision Plan of Treatment Date Care Activity Detail Author Start: 01-29-2026 Anxiety Screening Anxiety Screening [facility] Start: 01-29-2026 Depression Screening Depression Scre ening [facility] Start: 01-23-2026 Hepatitis B surface antibody level LDL Cholesterol [facility] Start: 09-19-2025 Glaucoma screening Dilated Retinal E xam [facility] Start: 08-10-2025 End: 08-10-2025 Patient encounter procedure 08/10/2025 9:20 AM EST Office Visit [facility] [address] [place] [id number] Imtiaz Hodge APRN.OCEAN FREIGHT MANAGER [address] [place] [address] 6 month follow up [facility] Comment on above: 6 month follow up Start: 08-01-2025 End: 10-31-2025 CBC W Auto Differential panel - Blood COMPLETE BLOOD COUNT AND DIFFERENTIAL Lab Routine 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 3 chronic kidney disease, without long-term current use of insulin (HCC) Expected: 08/01/2025 (Approximate), Expires: 10/31/2025 [facility] Comment on above: Expected: 08/01/2025 (Approximate), Expires: [...] hypertension, benign Expected: 08/01/2025 (Approximate), Expires: 10/31/2025 [facility] Comment on above: Expected: 08/01/2025 (Approximate), Expires: 10/31/2025 Start: 08-01-2025 End: 10-31-2025 Hemoglobin A1c in Blood HEMOGLOBIN A1C Lab Routine 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 3 chronic kidney disease, without long-term current use of insulin (HCC) Expected: 08/01/2025 (Approximate), Expires: 10/31/2025 [facility] Work Phone: Comment on above: Expected: 08/01/2025 (Approximate), Expires: 10/31/2025 Start: 08-01-2025 End: 10-31-2025 Lipid 1996 panel - Serum or Plasma LIPID PANEL, FASTING Lab Routine 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 3 chronic kidney disease, without long-term current use of insulin (HCC) Congestive heart failure, unspecified HF chronicity, unspecified heart failure type (HCC) Expected: 08/01/2025 (Approximate), Expires: 10/31/2025 [facility] Comment on above: Expected: 08/01/2025 (Approximate), Expires: 10/31/2025 Start: 07-28-2025 Covid-19 Vaccine () Covid-19 Vaccine () [facility] Comment on above: Postponed from 05/21 (Declined at this time) Start: 07-27-2025 Hepatitis B screening Urine Al bumin:Creatinine Ratio [facility] Start: 07-27-2025 Hepatitis B surface antibody level LDL Cholesterol [facility] Start: 07-26-2025 Hemoglobin A1c measurement HbA1C [facility] Start: 03-19-2025 Influenza vaccination Influenza Vacc ine (#1) [facility] Comment on above: Postponed from 05/21 (Declined at this time) Start: 03-08-2025 Patient discharge [facility] Start: 03-08-2025 End: 03-08-2025 [facility] Start: 03-08-2025 Care regimes management [facility] Start: 03-08-2025 Notification of physician [facility] Start: 03-07-2025 Ambulation without limitation [facility] Start: 03-07-2025 Assessment of risk o f venous thromboembolism [facility] Start: 03-07-2025 Insertion of cathete r into peripheral vein [facility] Start: 03-07-2025 MRI of lumbar spine Spine Lumbar (Ro utine) [facility] Start: 03-07-2025 Providing care accor ding to standard [facility] Start: 03-07-2025 Referral to occupati onal therapist [facility] Start: 03-07-2025 Referral to service [facility] Start: 03-07-2025 [facility] Start: 03-07-2025 Verification routine [facility] Start: 03-07-2025 Admission procedure [facility] Start: 03-07-2025 [facility] Start: 03-03-2025 [facility] Start: 01-29-2025 End: 01-29-2025 Patient encounter procedure [facility] Comment on above: 6 month follow with labs 6 month follow with labs/[facility] Start: 01-25-2025 End: 04-26-2025 Comprehensive metabolic 2000 panel - Serum or Plasma COMPREHENSIVE METABOLIC PANEL Lab Routine Hyperlipidemia LDL goal <100 Stage 3 chronic kidney disease, unspecified whether stage 3a or 3b CKD (HCC) Expected: 01/25/2025, Expires: 04/26/2025 [facility] Work Phone: Comment on above: Expected: 01/25/2025 , Expires: 04/26/2025 Start: 01-25-2025 End: 04-26-2025 Hemoglobin A1c in Blood HEMOGLOBIN A1C Lab Routine 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 3 chronic kidney disease, without long-term current use of insulin (HCC) Expected: 01/25/2025, Expires: 04/26/2025 [facility] Comment on above: Expected: 01/25/2025 , Expires: 04/26/2025 Start: 01-25-2025 End: 04-26-2025 Lipid 1996 panel - Serum or Plasma LIPID PANEL BASIC Lab Routine Hyperlipidemia LDL goal <100 Expected: 01/25/2025, Expires: 04/26/2025 [facility] Comment on above: Expected: 01/25/2025 , Expires: 04/26/2025 Start: 01-24-2025 Hemoglobin A1c measurement HbA1C [facility] Start: 01-11-2025 Anxiety Screening Anxiety Screening [facility] Start: 01-11-2025 Covid-19 Vaccine () Covid-19 Vaccine () [facility] Comment on above: Postponed from 05/21 (Declined at this time) Start: 01-11-2025 Depression Screening Depression Scre ening [facility] Start: 01-11-2025 RSV Vaccine (1 - 1-d ose 60+ series) RSV Vaccine (1 - 1-dose 60+ series) [facility] Comment on above: Postponed from 06/26 (Declined at this time) Start: 01-11-2025 RSV Vaccine (1 - 1-d ose 75+ series) RSV Vaccine (1 - 1-dose 75+ series) [facility] Comment on above: Postponed from 06/26 (Declined at this time) Start: 01-11-2025 Urine microalbumin profile DTaP,Tdap,Td Vaccine (1 - Tdap) [facility] Comment on above: Postponed from 06/26 (Declined at this time) Start: 01-05-2025 Hepatitis B surface antibody level LDL Cholesterol [facility] Start: 10-11-2024 End: 01-10-2025 Comprehensive metabolic 2000 panel - Serum or Plasma COMPREHENSIVE METABOLIC PANEL Lab Routine Stage 3 chronic kidney disease, unspecified whether stage 3a or 3b CKD (HCC) Expected: 10/11/2024, Expires: 01/10/2025 [facility] Work Phone: Comment on above: Expected: 10/11/2024 , Expires: 01/10/2025 Start: 10-11-2024 End: 10-11-2024 Patient encounter procedure 10/11/2024 2:00 PM EST Office Visit [facility] [address] [place], [place] [address] Treva Sandoval, METAL DRILL OPERATOR.OCEAN FREIGHT MANAGER [address] [place] [address] [facility] ER follow up [place], discharged 10/08/2024, needs rx and labs [facility] Comment on above: [facility] ER follow up [place], discharged 10/08/2024, needs rx and labs Start: 10-09-2024 End: 01-08-2025 CBC W Auto Differential panel - Blood COMPLETE BLOOD COUNT AND DIFFERENTIAL Lab Routine Congestive heart failure, unspecified HF chronicity, unspecified heart failure type (HCC) Expected: 10/09/2024, Expires: 01/08/2025 [facility] Comment on above: Expected: 10/09/2024 , Expires: 01/08/2025 Start: 10-09-2024 End: 01-08-2025 Comprehensive metabolic 2000 panel - Serum or Plasma COMPREHENSIVE METABOLIC PANEL Lab Routine Congestive heart failure, unspecified HF chronicity, unspecified heart failure type (HCC) Expected: 10/09/2024, Expires: 01/08/2025 [facility] Work Phone: Comment on above: Expected: 10/09/2024 , Expires: 01/08/2025 Start: 09-20-2024 Advance Directive Discussion Advance Directive Discussion [facility] Start: 08-28-2024 End: 08-28-2024 Patient encounter procedure 08/28/2024 9:20 AM EST Office Visit [facility] [address] [place] [address] Treva Sandoval APRN.OCEAN FREIGHT MANAGER [address] [place] [address] BP check 1 month [facility] Comment on above: BP check 1 month Start: 07-28-2024 End: 07-28-2024 Patient encounter procedure 07/28/2024 9:20 AM EST Office Visit [facility] [address] [place] [address] Treva Sandoval, GLO.OCEAN FREIGHT MANAGER [address] [place] [address] 6 month follow up with labs [facility] Comment on above: 6 month follow up [facility] labs Start: 07-13-2024 End: 10-12-2024 Comprehensive metabolic 2000 panel - Serum or Plasma COMPREHENSIVE METABOLIC PANEL Lab Routine Hyperlipidemia LDL goal <100 Expected: 07/13/2024, Expires: 10/12/2024 [facility] Comment on above: Expected: 07/13/2024 , Expires: 10/12/2024 Start: 07-13-2024 End: 10-12-2024 Hemoglobin A1c in Blood HEMOGLOBIN A1C Lab Routine 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 3 chronic kidney disease, without long-term current use of insulin (HCC) Expected: 07/13/2024, Expires: 10/12/2024 [facility] Work Phone: Comment on above: Expected: 07/13/2024 , Expires: 10/12/2024 Start: 07-13-2024 End: 10-12-2024 Lipid 1996 panel - Serum or Plasma LIPID PANEL BASIC Lab Routine Hyperlipidemia LDL goal <100 Expected: 07/13/2024, Expires: 10/12/2024 [facility] Comment on above: Expected: 07/13/2024 , Expires: 10/12/2024 Start: 07-13-2024 End: 10-12-2024 Microalbumin/Creatinine [Mass Ratio] in Urine ALBUMIN/CREATININE RATIO, URINE Lab Routine 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 3 chronic kidney disease, without long-term current use of insulin (HCC) Expected: 07/13/2024, Expires: 10/12/2024 [facility] Comment on above: Expected: 07/13/2024 , Expires: 10/12/2024 Start: 07-07-2024 Hemoglobin A1c measurement HbA1C [facility] Start: 05-21-2024 Covid-19 Vaccine () Covid-19 Vaccine () [facility] Start: 05-21-2024 Influenza vaccination Influenza Vacc ine (#1) [facility] Start: 11-27-2023 COVID-19 VACCINE (4 - Booster for Pfizer series) COVID-19 VACCINE (4 - Booster for Pfizer series) [facility] Comment on above: Postponed from 11/05 (Declined at this time) Start: 11-27-2023 COVID-19 VACCINE (4 - Pfizer series) COVID-19 VACCINE (4 - Pfizer series) [facility] Comment on above: Postponed from 11/05 (Declined at this time) Start: 11-20-2023 Hepatitis B surface antibody level LDL CHOLESTEROL [facility] Start: 08-26-2023 Glaucoma screening Dilated Retinal E xam [facility] Start: 08-26-2023 Hepatitis C antibody , confirmatory test DILATED RETINAL EXAM [facility] Start: 07-23-2023 Screening for osteoporosis Bone Density Screening [facility] Start: 05-29-2023 End: 07-29-2023 CBC W Auto Differential panel - Blood CBC + DIFF Lab Routine Essential hypertension, benign Expected: 05/29/2023, Expires: 07/29/2023 [facility] Work Phone: Comment on above: Expected: 05/29/2023 , Expires: 07/29/2023 Start: 05-29-2023 End: 07-29-2023 Comprehensive metabolic 2000 panel - Serum or Plasma COMP METABOLIC PANEL Lab Routine 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 3 chronic kidney disease, without long-term current use of insulin (HCC) Expected: 05/29/2023, Expires: 07/29/2023 [facility] Work Phone: Comment on above: Expected: 05/29/2023 , Expires: 07/29/2023 Start: 05-29-2023 End: 07-29-2023 Hemoglobin A1c in Blood HGB A1C Lab Routine 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 3 chronic kidney disease, without long-term current use of insulin (HCC) Expected: 05/29/2023, Expires: 07/29/2023 [facility] Work Phone: Comment on above: Expected: 05/29/2023 , Expires: 07/29/2023 Start: 05-29-2023 End: 07-29-2023 Lipid 1996 panel - Serum or Plasma LIPID PANEL BASIC Lab Routine Hyperlipidemia LDL goal <100 Expected: 05/29/2023, Expires: 07/29/2023 [facility] Work Phone: Comment on above: Expected: 05/29/2023 , Expires: 07/29/2023 Start: 05-28-2023 Urine microalbumin profile DTAP,TDAP,TD (1 - Tdap) [facility] Comment on above: Postponed from 06/26 (Declined at this time) Start: 05-21-2023 Influenza vaccination INFLUENZA (#1) [facility] Start: 11-27-2022 3 comp foot exam completed DIABETIC FOOT EXAM [facility] Start: 11-27-2022 Diabetic foot examination Diabetic F oot Exam [facility] Start: 11-24-2022 Hepatitis B screening URINE AL BUMIN:CREATININE RATIO [facility] Start: 11-19-2022 Hemoglobin A1c/Hemoglobin.total in Blood HBA1C [facility] Start: 09-20-2022 ADVANCE DIRECTIVE DISCUSSION ADVANCE DIRECTIVE DISCUSSION [facility] Start: 09-20-2022 DEPRESSION ASSESSMENT DEPRESSION ASS ESSMENT [facility] Start: 08-25-2022 Hepatitis C antibody , confirmatory test DILATED RETINAL EXAM [facility] Start: 05-27-2022 Hemoglobin A1c/Hemoglobin.total in Blood HBA1C [facility] Start: 05-15-2022 Hepatitis B surface antibody level LDL CHOLESTEROL [facility] Start: 02-09-2022 End: 01-18-2023 Screening mammography bi 2-view breast inc cad SYD SCREENING Radiology Routine Encounter for screening mammogram for malignant neoplasm of breast Expected: 02/09/2022, Expires: 01/18/2023 [facility] Work Phone: Comment on above: Expected: 02/09/2022 , Expires: 01/18/2023 Start: 01-09-2022 COVID-19 VACCINE (4 - Booster for Pfizer series) COVID-19 VACCINE (4 - Booster for Pfizer series) [facility] Start: 11-05-2021 COVID-19 VACCINE (4 - Booster for Pfizer series) COVID-19 VACCINE (4 - Booster for Pfizer series) [facility] Start: 2010 RSV Vaccine (1 - 1-d ose 75+ series) RSV Vaccine (1 - 1-dose 75+ series) [facility] Start: 1954 Urine microalbumin profile [facility] Anion gap in Serum o r Plasma [facility] Basic metabolic 2008 panel with ionized calcium - Serum or Plasma [facility] BUN/Creatinine ratio [facility] Calcium [Mass/volume ] in Serum or Plasma [facility] Carbon dioxide, tota l [Moles/volume] in Central venous blood [facility] Creatinine [Mass/vol ume] in Serum or Plasma [facility] Erythrocyte mean corpuscular volume determination [facility] Glucose [Mass/volume ] in Serum or Plasma [facility] Hematocrit [Volume Fraction] of Blood [facility] Hemoglobin [Mass/vol ume] in Blood [facility] Leukocytes [#/volume ] in Blood [facility] Mean corpuscular hemoglobin concentration determination [facility] Mean corpuscular hemoglobin determination [facility] Measurement of renal function [facility] Neutrophil count [facility] Neutrophil percent differential count [facility] Patient Education ED Back Pain ( Acute or Chronic) ED Sciatica [facility] Work Phone: Patient referral [facility] Work Phone: Platelets [#/volume] in Blood [facility] Potassium measurement [facility] Red blood cell count [facility] Red cell distributio n width determination [facility] Serum chloride measurement [facility] Sodium measurement [facility] Urea nitrogen [Mass/volume] in Serum or Plasma [facility] End: 10-03-2023 XR HAND GENERAL 3V PA/LAT/OBL BILATERAL XR HAND GENERAL 3V PA/LAT/OBL BILATERAL Radiology Routine Bilateral hand pain 1 Occurrences starting 09/03/2022 until 10/03/2023 [facility] Work Phone: Comment on above: 1 Occurrences starti ng 09/03/2022 until 10/03/2023 XR HAND GENERAL 3V PA/LAT/OBL BILATERAL XR HAND GENERAL 3V PA/LAT/OBL BILATERAL Radiology Routine Bilateral hand pain 09/03/2022 11:21 AM EST [facility] Work Phone: XR KNEE LIMITED 2V A P/LAT RIGHT XR KNEE LIMITED 2V AP/LAT RIGHT Radiology Routine Chronic pain of right knee 12/19/2021 3:51 PM EDT [facility] Work Phone: [facility] Immunizations Immunization Date Immunization Notes Care Provider Merle lucas 10-07-2024 zoster vaccine recombinant Treva Sandoval APRN.[employer] Work Phone: [facility] 06-23-2024 Seasonal trivalent influenza vaccine, adjuvanted, preservative free Treva Sandoval APRN.[employer] MANAGER Work Phone: [facility] 05-31-2023 influenza (aIIV4) vaccine, age 65+ yr, quadrivalent, PF (FLUAD QUAD) Treva Sandoval APRN.[employer] MANAGER Work Phone: [facility] 05-31-2023 influenza virus vacc ine, unspecified formulation Xr [place] Work Phone: [facility] 06-05-2022 influenza (aIIV4) vaccine, age 65+ yr, quadrivalent, PF (FLUAD QUADRIVALENT) Treva Sandoval APRN.[employer] MANAGER Work Phone: [facility] 07-11-2021 influenza (aIIV4) vaccine, age 65+ yr, quadrivalent, PF (FLUAD QUADRIVALENT) Khari Sunshine APRN.[facility] Work Phone: [facility] Work Phone: 11-07-2020 COVID-19 vaccine, ag e 12+ yr (PFIZER-BIONTECH - PURPLE TOP) Khari Sunshine APRN.[facility] Work Phone: [facility] Work Phone: 10-17-2020 COVID-19 vaccine, ag e 12+ yr (PFIZER-BIONTECH - PURPLE TOP) Khari Sunshine APRN.[facility] Work Phone: [facility] 07-26-2020 zoster vaccine recombinant Khari Sunshine APRN.[facility] Work Phone: [facility] Work Phone: 05-22-2020 influenza, high dose seasonal, preservative-free Khari Sunshine APRN.[facility] Work Phone: [facility] Work Phone: 05-22-2020 zoster vaccine recombinant Khari Sunshine APRN.[facility] Work Phone: [facility] Work Phone: 06-07-2019 Seasonal trivalent influenza vaccine, adjuvanted, preservative free Khari Sunshine APRN.[facility] Work Phone: [facility] Work Phone: 06-30-2018 Seasonal trivalent influenza vaccine, adjuvanted, preservative free Khari Sunshine APRN.[facility] Work Phone: [facility] Work Phone: 07-05-2017 influenza, high dose seasonal, preservative-free Khari Sunshine APRN.[facility] Work Phone: [facility] 06-09-2016 influenza, high dose seasonal, preservative-free Khari Sunshine APRN.[facility] Work Phone: [facility] 08-30-2015 pneumococcal conjuga te vaccine, 13 valent Khari Sunshine APRN.[facility] Work Phone: [facility] 07-21-2014 influenza virus vacc ine, unspecified formulation Khari Blaz METAL DRILL OPERATOR.[facility] Work Phone: [facility] 08-18-2011 influenza virus vacc ine, unspecified formulation Khari Blaz METAL DRILL OPERATOR.[facility] Work Phone: [facility] Work Phone: 07-17-2010 influenza virus vacc ine, whole virus Khari Blaz METAL DRILL OPERATOR.[facility] Work Phone: [facility] 08-08-2009 influenza virus vacc ine, unspecified formulation Khari Blaz METAL DRILL OPERATOR.[facility] Work Phone: [facility] 08-09-2008 influenza virus vacc ine, whole virus Khari Blaz METAL DRILL OPERATOR.[facility] Work Phone: [facility] 08-04-2007 influenza virus vacc ine, whole virus Khari Blaz METAL DRILL OPERATOR.[facility] Work Phone: [facility] 07-21-2005 influenza virus vacc ine, whole virus Khari Blaz METAL DRILL OPERATOR.[facility] Work Phone: [facility] Work Phone: 07-21-2005 pneumococcal polysaccharide vaccine, 23 valent Khari Sunshine METAL DRILL OPERATOR.[facility] Work Phone: [facility] Work Phone: Payers Date Payer Category Payer Private Health Insurance [facility] [id number] 2024 Self-pay 2021 Medicare AETNA MEDICARE A ETNA MEDICARE PPO [id number] 2021-Present [phone] [address] [place] [address] PPO [id number] 2021 Medicare AETNA MEDICARE A ETNA MEDICARE PPO [id number] 2021-Present [phone] [address] [place] [address] PPO [id number] 2021 Medicare (Managed Care) [employer] [place] [id number] 2021 Private Health Insurance [facility] [id number] 2020 Medicare [id number] 2018 Unknown [id number] 1935 Unknown [id number] 1935 Unknown [id number]. 627 Unknown [id number]. 462 Unknown [id number]. 462 Unknown [id number] [id number]. 462 Unknown [id number] [id number]. 462 Unknown [id number]. 462 Unknown [id number]. 462 Unknown [id number]. 462 Unknown [id number] [id number]. 462 Unknown [id number] [id number]. 462 Unknown [id number] [id number]. 462 Unknown [id number] 462 Social History Date Type Detail Facility Start: 05-28-2022 End: 03-07-2025 Tobacco smoking status NHIS Never smoked tobacco [facility] Work Phone: Start: 11-27-2021 End: 03-05-2025 Alcohol intake Current non-drinker of alcohol (finding) [facility] Start: 1935 Sex Assigned At Female C [facility] Work Phone: Start: 10-01-2021 End: 02-12-2022 Exposure to SARS-CoV-2 (event) Not sure [facility] Start: 12-14-2012 End: 05-28-2022 Tobacco use and exposure Smokeless tobacco non-user [facility] Start: 08-27-2020 End: 11-26-2022 History of Social function [facility] Work Phone: Start: 08-27-2020 End: 11-26-2022 Tobacco use panel [facility] Work Phone: Adult Depression Screening Assessment 0 [facility] Work Phone: Start: 11-27-2021 Gender identity Identifies as female gender (finding) [facility] Work Phone: Start: 11-27-2021 Sexual orientation Heterosexual (cyndi mckeon) [facility] Work Phone: Sexual Orientation [facility] Start: 11-21-2013 Sex Female (finding) [facility] How often to you hav e a drink containing alcohol? Never [facility] Has the [employer], [place], or water company threatened to shut off services in your home in past 12Mo No [facility] (I/We) worried [facility] (my/our) food would run out before (I/we) got money to buy more. Never true [facility] Start: 10-04-2024 Alcohol Alcohol [facility] Start: 10-04-2024 Lives Lives [facility] Start: 10-04-2024 Tobacco Use Tobacco Use [facility] Medical Equipment Procedure Code Equipment Code Equipment Origin al Text Equipment Identifier Dates [id number], [id number], [id number], [id number], [id number], [id number] Start: 12-03-2008 End: 03-17-2024 Comment on above: Test blood sugar(s) 1 times daily. Dx: E11.9. Insulin: No, Brand covered by insurance use daily Blood Sugar Diagnostic (True Metrix Glucose Test Strip) strip Start: 10-04-2024 Blood Sugar Diagnostic (True Metrix Glucose Test Strip) strip Start: 10-04-2024 Blood Sugar Diagnostic (True Metrix Glucose Test Strip) strip Start: 10-04-2024 Goals Date Patient Goal Desired Activity /State Functional Status Date Assessment Result Facility 03-08-2025 Functional status Chair;Back to bed [facility] Work Phone: 01-29-2025 Total score [AUDIT-C] 0 01/30/20 25 9:20 AM Imtiaz Saez APRN.[employer] MANAGER [facility] 03-06-2015 Are you deaf, or do you have serious difficulty hearing No 03/06/2015 10:57 AM Shawanda Max LPN No [facility] 03-06-2015 Are you blind, or do you have serious difficulty seeing, even when wearing glasses No 03/06/2015 10:57 AM Shawanda Max LPN No [facility] 03-06-2015 Do you have serious difficulty walking or climbing stairs Yes 03/06/2015 10:57 AM Shawanda Max LPN Yes [facility] 03-06-2015 Do you have difficul ty dressing or bathing Yes 03/06/2015 10:57 AM Shawanda Max LPN Yes [facility] 03-06-2015 Because of a physica l, mental, or emotional condition, do you have difficulty doing errands alone such as visiting a physician's office or shopping Yes 03/06/2015 10:57 AM Shawanda Max LPN Yes [facility] Mental Status Date Assessment Result Facility 03-08-2025 Cognitive function Voice/Name [facility] Work Phone: 03-03-2025 Cognitive function Level Of Cons ciousness Awake;Alert;Appropriate;Fol lows Commands [facility] Work Phone: 03-06-2015 Because of a physica l, mental, or emotional condition, do you have serious difficulty concentrating, remembering, or making decisions No 03/06/2015 10:57 AM Shawanda Max LPN No [facility] Clinical Notes 09-28-2017 to 03-08-2025 Note Date & Type Note Facility 03-08-2025 Discharge summary Note Date/Time March 08, 2025 2:41pm [facility] Medical Records Department [address] [place] [id number] Discharge Summary 03/08/25 1435 MR#: [id number] Acct: [id number] Name: LUCILLE THURMAN Rep #:[id number] : 1935 89 From: Chin do MD PCP: Dr. Allie Stanton MD Status:[facility] Location: [place] [address] Providers Date of Admission: 03/07/25 Primary Care Physician: Dr. Allie Stanton MD Reason For Visit: BACK PAIN Diagnosis Discharge Diagnosis (1) Back pain: Status: Acute Code(s): M54.9 - Dorsalgia, unspecified Medications at Discharge Home Medications multivitamin with folic acid 400 mcg tablet 1 tab PO DAILYCM vitamin #30 tabs 02/11/15 blood sugar diagnostic (True Metrix Glucose Test Strip) 10/04/24 aspirin 81 mg tablet,delayed release 81 mg PO BREAKFAST 30 days #30 tabs 10/08/24 carvedilol 3.125 mg tablet 3.125 mg PO BID 30 days #180 tabs 10/12/24 clopidogrel 75 mg tablet 75 mg PO DAILY 30 days #90 tabs 10/12/24 empagliflozin 10 mg tablet (Jardiance) 10 mg PO DAILY 30 days #90 tabs 10/12/24 nitroglycerin 0.4 mg sublingual tablet 0.4 mg sublingual Q5-15M PRN chest pain #20 tabs 01/01/25 omeprazole 20 mg capsule,delayed release 20 mg PO QODAY 01/01/25 furosemide 20 mg tablet 20 mg PO DAILY 03/03/25 isosorbide mononitrate 30 mg tablet,extended release 24 hr 30 mg PO DAILY 03/03/25 losartan 100 mg tablet 100 mg PO DAILY 03/03/25 amlodipine 5 mg tablet 5 mg PO DAILY 03/07/25 atorvastatin 80 mg tablet 80 mg PO QHS cholesterol 03/07/25 orphenadrine citrate 100 mg tablet,extended release 100 mg PO BID 03/07/25 prednisone 10 mg tablet See Taper PO DAILY 03/07/25 acetaminophen 500 mg tablet 1,000 mg (2 x 500 mg) PO Q8 #0 tabs 03/08/25 lidocaine 5 % topical patch 1 patch topical DAILY #0 ea 03/08/25 Hospital Course Operations None Procedures None Summary of Care Provided Minutes Spent on Discharge: 32 Hospital Course: Per HPI: LUCILLE THURMAN, is a 89 F who presents to the hospital with acute on subacute back pain. She says it was going down her legs but now its much improved though she still has significant pain with ambulation. She denies any significant trauma prior to this happening she said that she was getting up and trying to move when she noticed the pain in her back. She initially noticed pain a couple weeks ago but it is steadily gotten worse and then on 03/02/2025 she was trying to move and twisted and had a much more significant and worse pain. The pain would go down her right leg. Her straight leg raises negative though she does have some pain when you are lowering her leg indicating more of a low back musculoskeletal issue versus an actual nerve compression. No fevers or chills. She had presented initially to the ER on 03/03/2025 CT demonstrated degenerative disc disease but nothing acute or significant. No loss of bowel orbladder function either on her initial visit or on this visit. Hospital Course: 1. Back pain with mild radiculopathy down her right leg with inability to complete ADLs?89-year-old female presented to the hospital with ongoing back pain that did get worse overnight and so she presented to the ER. MRI demonstrated moderate spinal stenosis L4-5 with right L4 nerve compression and mild to moderate canal narrowing at L3-4. There is asymmetric left L5 foraminalnarrowing with bulging disc abutting the nerve within the neuroforamen. Will continue with medications and physical therapy but it may be beneficial to at least have her follow-up with neurosurgery as an outpatient to see if there is any surgical intervention that could be done though limited given her age and comorbidities. She was eval by PT/OT today and a referral was made to the transitional care unit and she was excepted both by them and by the insurance company therefore we will plan to discharge to the transitional care unit today. I discussed with her the plan for discharge and she expressed understanding of the risks and benefits of going to the snf and would like to go today. 2. Essential hypertension, hyperlipidemia, coronary artery disease, chronic diastolic CHF, type 2 diabetes, GERD are all chronic medical conditions which complicate her care. Her home medications were continued where appropriate Physical Exam Narrative General: Alert, Oriented x3, Cooperative, No apparent distress HEENT: Atraumatic, PERRLA, EOMI, Normocephalic, hard of hearing Oral: Moist Mucosa Neck: Supple, No JVD Lungs: Diminished, Normal air movement, No rhonchi, No wheeze, No rales Cardiovascular: Regular rate, Regular Rhythm, Normal S1, Normal S2, No murmurs Abdomen: Soft, Non Tender, Non-Distended, No Hepato-splenomegaly Extremities: No edema, Capillary Refill Less than 3 Seconds Skin: No rashes, No breakdown Musculoskeletal: Mild tenderness palpation of her lumbar region Neurological: No focal neurological deficits, moves all extremities, Sensory exam intact to light touch and pain Psych/Mental Status: Normal Affect, Appropriate Weight / BMI Weight Weight: 160 lb 0.889 oz Body Mass Index (BMI) 27.4 ABG / Lab / Microbiology Data 03/08/25 05:21 03/08/25 05:21 Laboratory: Laboratory Results - last 24 hr 03/08/25 05:21: WBC 10.5, RBC 3.22 L, Hgb 9.5 L, Hct 29.4 L, MCV 91.3, MCH 29.5,MCHC 32.3, RDW Std Deviation 42.4, RDW Coeff of Najma 12.9, Plt Count 294, MPV 9.1, Immature Gran % (Auto) 0.500, Neut % (Auto) 76.3 H, Lymph % (Auto) 14.4 L, Anderson % (Auto) 8.3, Eos % (Auto) 0.1, Baso % (Auto) 0.4, Absolute Neuts (auto) 8.0 H, Absolute Lymphs (auto) 1.51, Nucleated RBC % 0, Sodium 137, Potassium 4.5, Chloride 104, Carbon Dioxide 22.2, Anion Gap 11, BUN 39 H, Creatinine 1.34 H, Estim Creat Clear Calc 27.79 L, Est GFR (MDRD) Non-Af 38 L, BUN/Creatinine Ratio 29.4 H, Glucose 112 H, Calcium 8.9 03/08/25 11:06: POC Glucose 227 H Radiography Diagnostic Testing: Radiology Impression Lumbar Spine MRI 03/07/25 12:33 IMPRESSION: 1. Moderate spinal stenosis at L4-5 with right L4 nerve compression. 2. Apfu-tl-cihqbqpn canal narrowing at L3-4. 3. Asymmetric left L5 foraminal narrowing with bulging disc abutting the nerve within the neural foramen [facility] D/C Instructions DC O2, CPAP, BIPAP Needs Home O2 Discharge instructions: No Meaningful Use Info Meaningful Use Meaningful Use Diagnoses (Choose all that apply): None applicable Ischemic Stroke Statin Dosing Therapy Reference: STATIN DOSE THERAPY REFERENCE: * Patients > 75 years receive moderate or high dose statin therapy. * Patients 75 years or YOUNGER should receive HIGH intensity statin dose unless contraindicated. You will be required to document reason for non-treatment if statin daily dose does not meet guidelines. HIGH DOSE STATIN THERAPY DAILY Atorvastatin > than or = to 40 mg Rosuvastatin > than or = to 20 mg Amlodipine + Atorvastatin > than or = to 2.5/40 mg Ezetimibe + Simvastatin 10/80 mg Simvastatin 80mg Discharge Plan Admission Admit Date/Time: 03/07/25 11:20 Attending Provider: Chin Hawthorne Primary Care Provider: Allie Stanton Discharge Orders/Prescriptions Prescriptions: New acetaminophen 500 mg Tablet 1,000 mg PO Q8 Qty: 0 0RF lidocaine 5 % Adhesive Patch,Medicated 1 patch topical DAILY Qty: 0 0RF Protocol: *Topical Application Instructions APPLICATION INSTRUCTIONS: lumbar Continued carvedilol 3.125 mg tablet 3.125 mg PO BID 30 Days Qty: 180 3RF Jardiance 10 mg tablet 10 mg PO DAILY 30 Days Qty: 90 3RF clopidogrel 75 mg tablet 75 mg PO DAILY 30 Days Qty: 90 3RF Rx Instructions: Discontinue if platelet count drops less than 50,000 or hemoglobin less than 8 g% omeprazole 20 mg capsule,delayed release(DR/EC) 20 mg PO QODAY nitroglycerin 0.4 mg tablet, sublingual 0.4 mg sublingual Q5-15M PRN (Reason: chest pain) Qty: 20 3RF Rx Instructions: do not exceed 3 doses per episode multivitamin with folic acid 1 TABLET tablet 1 tab PO DAILYCM Qty: 30 0RF Patient Comments: supplement (DME) True Metrix Glucose Test Strip Strip MISCELLANEOUS DAILY aspirin 81 mg Tablet,Delayed Release (Dr/Ec) 81 mg PO BREAKFAST 30 Days Qty: 30 4RF furosemide 20 mg tablet 20 mg PO DAILY isosorbide mononitrate 30 mg tablet extended release 24 hr 30 mg PO DAILY losartan 100 mg tablet 100 mg PO DAILY atorvastatin 80 mg tablet 80 mg PO QHS amlodipine 5 mg tablet 5 mg PO DAILY prednisone 10 mg tablet See Taper PO DAILY Taper: Prednisone Taper 40 mg WITH BREAKFAST for 5 Days 20 mg WITH BREAKFAST for 5 Days 10 mg WITH BREAKFAST for 5 Days Rx Instructions: SEE TAPER orphenadrine citrate 100 mg tablet extended release 100 mg PO BID Referrals / Follow Up: Allie Stanton MD [Primary Care Provider] - Disposition Disposition (needs filled in before D/C Order can be placed): Alf Facility Charges/Coding Visit Charges Inpatient E&M: 19845 Disch Hosp >30min 03/08/25 1441 <Electronically signed by Chin Hawthorne MD> Cosigner Signature (if applicable): CC: Dr. Allie Stanton MD; Dr. Chin Hawthorne MD~ Signed [facility] Work Phone: [phone]) 689-413206-19-2025 Discharge summary Author Chin Hawthorne [facility] Note Date/Time March 08, 2025 2:35 pm [facility] Medical Records Department [address] [place] [address] Transfer to Extended Care MR#: [id number] Acct: [id number] Name: LUCILLE THURMAN Rep #:[id number] : 1935 89 From: Chin do MD PCP: Dr. Allie Stanton MD Status:AD Alice PUENTES Certification of patient admission REQUIRED AT TIME OF ADMISSION. I CERTIFY THAT POST-HOSPITAL ECF SERVICES ARE REQUIRED TO BE GIVEN ON AN IN-PATIENT BASIS BECAUSE OF THE ABOVE NAMED PATIENT'S NEED FOR INTERMEDIATE CARE ON A CONTINUING BASIS FOR THE CONDITION(S) FOR WHICH HE/SHE WAS RECEIVING IN-PATIENT HOSPITAL SERVICES PRIOR TO HIS/HER TRANSFER TO THE ECF. 03/08/25 1435<Electronically signed by Chin Hawthorne MD> Diet Diet Order/Speech Therapy: INPATIENT Hospital Diet / Speech Therapy Order(s) 03/07/25 12:33 Diet: Cardiac - Heart Healthy Food consistency:: Regular Liquid Consistency:: Regular/Thin Routine Orders/Code Status Routine Lab Work: CBC and BMP DC O2, CPAP, BIPAP needs Home O2 Discharge instructions: No Therapies Physical Therapy: Eval and Treat Occupational Therapy: Eval and Treat Problem/Diagnosis (1) Back pain: Status: Acute Code(s): M54.9 - Dorsalgia, unspecified Plan 1. Back pain with mild radiculopathy down her right leg with an inability to complete ADLs ? The radiculopathy seems to have improved ? Continue with multimodal pain management ? Can continue with the prednisone taper from the emergency room 40 mg p.o. daily for 5 days then 20 for 5 days then 10 mg for 5 days ? PT/OT ? MRI with moderate spinal stenosis of L4-5 with right L4 nerve compression and mild to moderate canal narrowing at L3-4. There is an asymmetric left L5 foraminal narrowing with bulging disc abutting the nerve within the neuroforamen ? Given the fact that she is 89 years old I feel that it is more reasonable to trial physical therapy first and medications prior to evaluation with neurosurgery ? Will consult case management for discharge planning and possible placement 2. Essential HTN/HLD/coronary artery disease/chronic diastolic CHF ? Echo from 10/04/2024 with an EF of 65% and stage I diastolic dysfunction and anRVSP of 41 mmHg ? Heart cath on 10/06/2024 with a 50% stenosis in her mid LAD as well as a 50% stenosis in her mid RCA ? Will continue with her home blood pressure medications ? Monitor make adjustments as necessary ? Continue with aspirin and Plavix ? Continue with Jardiance both for her diastolic heart failure and her type 2 diabetes 3. DM2 ? Will continue with Jardiance ? Continue with sliding scale insulin ? Accu-Cheks ACHS ? Will monitor and make adjustments as necessary 4. GERD ? Stable ? Continue with PPI DVT: Lovenox Allergies/Procedures Done in Hospital Allergies metformin Allergy (Verified 03/07/25 09:51) Hives morphine Adverse Reaction (Verified 03/07/25 09:51) Nausea oxycodone (Oxycodone) Adverse Reaction (Verified 03/07/25 09:51) Nausea Procedures: None Type of Care/Length of Stay Estimated LOS: Convalescent Care Less Than 30 days Type of Care Needed: Skilled Rehab Potential: Good Prognosis: Good Additional Orders/Day of Discharge Day of Discharge: 03/08/25 Discharge Plan Admission Admit Date/Time: 03/07/25 11:20 Attending Provider: Chin Hawthorne Primary Care Provider: Allie Stanton Discharge Orders/Prescriptions Prescriptions: New acetaminophen 500 mg Tablet 1,000 mg PO Q8 Qty: 0 0RF lidocaine 5 % Adhesive Patch,Medicated 1 patch topical DAILY Qty: 0 0RF Protocol: *Topical Application Instructions APPLICATION INSTRUCTIONS: lumbar Continued carvedilol 3.125 mg tablet 3.125 mg PO BID 30 Days Qty: 180 3RF Jardiance 10 mg tablet 10 mg PO DAILY 30 Days Qty: 90 3RF clopidogrel 75 mg tablet 75 mg PO DAILY 30 Days Qty: 90 3RF Rx Instructions: Discontinue if platelet count drops less than 50,000 or hemoglobin less than 8 g% omeprazole 20 mg capsule,delayed release(DR/EC) 20 mg PO QODAY nitroglycerin 0.4 mg tablet, sublingual 0.4 mg sublingual Q5-15M PRN (Reason: chest pain) Qty: 20 3RF Rx Instructions: do not exceed 3 doses per episode multivitamin with folic acid 1 TABLET tablet 1 tab PO DAILYCM Qty: 30 0RF Patient Comments: supplement (DME) True Metrix Glucose Test Strip Strip MISCELLANEOUS DAILY aspirin 81 mg Tablet,Delayed Release (Dr/Ec) 81 mg PO BREAKFAST 30 Days Qty: 30 4RF furosemide 20 mg tablet 20 mg PO DAILY isosorbide mononitrate 30 mg tablet extended release 24 hr 30 mg PO DAILY losartan 100 mg tablet 100 mg PO DAILY atorvastatin 80 mg tablet 80 mg PO QHS amlodipine 5 mg tablet 5 mg PO DAILY prednisone 10 mg tablet See Taper PO DAILY Taper: Prednisone Taper 40 mg WITH BREAKFAST for 5 Days 20 mg WITH BREAKFAST for 5 Days 10 mg WITH BREAKFAST for 5 Days Rx Instructions: SEE TAPER orphenadrine citrate 100 mg tablet extended release 100 mg PO BID Referrals / Follow Up: Allie Stanton MD [Primary Care Provider] - Disposition Disposition (needs filled in before D/C Order can be placed): [facility]f Facility 03/08/25 1435 <Electronically signed by Chin Hawthorne MD> Cosigner Signature (if applicable): CC: Dr. Allie Stanton MD ~ [facility] Work Phone: [phone]) 852-286906-19-2025 Discharge summary [facility] Medical Records Department [address] [place] [id number] Discharge Summary 03/08/25 1435 MR#: [id number] Acct: [id number] Name: LUCILLE THURMAN Rep #:[id number] : 1935 89 From: Chin do MD PCP: Dr. Allie Stanton MD Status:[facility] Location: [place] [address] Providers Date of Admission: 03/07/25 Primary Care Physician: Dr. Allie Stanton MD Reason For Visit: BACK PAIN Diagnosis Discharge Diagnosis (1) Back pain: Status: Acute Code(s): M54.9 - Dorsalgia, unspecified Medications at Discharge Home Medications multivitamin with folic acid 400 mcg tablet 1 tab PO DAILYCM vitamin #30 tabs 02/11/15 blood sugar diagnostic (True Metrix Glucose Test Strip) 10/04/24 aspirin 81 mg tablet,delayed release 81 mg PO BREAKFAST 30 days #30 tabs 10/08/24 carvedilol 3.125 mg tablet 3.125 mg PO BID 30 days #180 tabs 01/23/25 clopidogrel 75 mg tablet 75 mg PO DAILY 30 days #90 tabs 10/12/24 empagliflozin 10 mg tablet (Jardiance) 10 mg PO DAILY 30 days #90 tabs 10/12/24 nitroglycerin 0.4 mg sublingual tablet 0.4 mg sublingual Q5-15M PRN chest pain #20 tabs 01/01/25 omeprazole 20 mg capsule,delayed release 20 mg PO QODAY 01/01/25 furosemide 20 mg tablet 20 mg PO DAILY 03/03/25 isosorbide mononitrate 30 mg tablet,extended release 24 hr 30 mg PO DAILY 03/03/25 losartan 100 mg tablet 100 mg PO DAILY 03/03/25 amlodipine 5 mg tablet 5 mg PO DAILY 03/07/25 atorvastatin 80 mg tablet 80 mg PO QHS cholesterol 03/07/25 orphenadrine citrate 100 mg tablet,extended release 100 mg PO BID 03/07/25 prednisone 10 mg tablet See Taper PO DAILY 03/07/25 acetaminophen 500 mg tablet 1,000 mg (2 x 500 mg) PO Q8 #0 tabs 03/08/25 lidocaine 5 % topical patch 1 patch topical DAILY #0 ea 03/08/25 Hospital Course Operations None Procedures None Summary of Care Provided Minutes Spent on Discharge: 32 Hospital Course: Per HPI: LUCILLE THURMAN, is a 89 F who presents to the hospital with acute on subacute back pain. She says it was going down her legs but now its much improved though she still has significant pain with ambulation. She denies any significant trauma prior to this happening she said that she was getting up and trying to move when she noticed the pain in her back. She initially noticed pain a couple weeks ago but it is steadily gotten worse and then on 03/02/2025 she was trying to move and twisted and had a much more significant and worse pain. The pain would go down her right leg. Her straight leg raises negative though she does have some pain when you are lowering her leg indicating more of a low back musculoskeletal issue versus an actual nerve compression. No fevers or chills. She had presented initially to the ER on 03/03/2025 CT demonstrated degenerative disc disease but nothing acute or significant. No loss of bowel orbladder function either on her initial visit or on this visit. Hospital Course: 1. Back pain with mild radiculopathy down her right leg with inability to complete ADLs?[id number] presented to the hospital with ongoing back pain that did get worse overnight and so she presented to the ER. MRI demonstrated moderate spinal stenosis L4-5 with right L4 nerve compression andmild to moderate canal narrowing at L3-4. There is asymmetric left L5 foraminalnarrowing with bulging disc abutting the nerve within the neuroforamen. Will continue with medications and physical therapy but it may be beneficial to at least have her follow-up with neurosurgery as an outpatient to see if there is any surgical intervention that could be done though limited given her age and comorbidities. She was eval by PT/OT today and a referral was made to the transitional care unit and she wasexcepted both by them and by the insurance company therefore we will plan to discharge to the transitional care unit today. I discussed with her the plan for discharge and she expressed understandingof the risks and benefits of going to the snf and would like to go today. 2. Essential hypertension, hyperlipidemia, coronary artery disease, chronic diastolic CHF, type 2 diabetes, GERD are all chronic medical conditions which complicate her care. Her home medications were continued where appropriate Physical Exam Narrative General: Alert, Oriented x3, Cooperative, No apparent distress HEENT: Atraumatic, PERRLA, EOMI, Normocephalic, hard of hearing Oral: Moist Mucosa Neck: Supple, No JVD Lungs: Diminished, Normal air movement, No rhonchi, No wheeze, No rales Cardiovascular: Regular rate, Regular Rhythm, Normal S1, Normal S2, No murmurs Abdomen: Soft, Non Tender, Non-Distended, No Hepato-splenomegaly Extremities: No edema, Capillary Refill Less than 3 Seconds Skin: No rashes, No breakdown Musculoskeletal: Mild tenderness palpation of her lumbar region Neurological: No focal neurological deficits, moves all extremities, Sensory exam intact to light touch and pain Psych/Mental Status: Normal Affect, Appropriate Weight / BMI Weight Weight: 160 lb 0.889 oz Body Mass Index (BMI) 27.4 ABG / Lab / Microbiology Data 03/08/25 05:21 03/08/25 05:21 Laboratory: Laboratory Results - last 24 hr 03/08/25 05:21: WBC 10.5, RBC 3.22 L, Hgb 9.5 L, Hct 29.4 L, MCV 91.3, MCH 29.5,MCHC 32.3, RDW Std Deviation 42.4, RDW Coeff of Najma 12.9, Plt Count 294, MPV 9.1, Immature Gran % (Auto) 0.500, Neut % (Auto) 76.3 H, Lymph % (Auto) 14.4 L, Anderson % (Auto) 8.3, Eos % (Auto) 0.1, Baso % (Auto) 0.4, Absolute Neuts (auto) 8.0 H, Absolute Lymphs (auto) 1.51, Nucleated RBC % 0, Sodium 137, Potassium 4.5, Chloride 104, Carbon Dioxide 22.2, Anion Gap 11, BUN 39 H, Creatinine 1.34 H, Estim Creat Clear Calc 27.79 L, Est GFR (MDRD) Non-Af 38 L, BUN/Creatinine Ratio 29.4 H, Glucose 112 H, Calcium 8.9 03/08/25 11:06: POC Glucose 227 H Radiography Diagnostic Testing: Radiology Impression Lumbar Spine MRI 03/07/25 12:33 IMPRESSION: 1. Moderate spinal stenosis at L4-5 with right L4 nerve compression. 2. Aupd-wk-ynbogdev canal narrowing at L3-4. 3. Asymmetric left L5 foraminal narrowing with bulging disc abutting the nerve within the neural foramen [facility] D/C Instructions DC O2, CPAP, BIPAP Needs Home O2 Discharge instructions: No Meaningful Use Info Meaningful Use Meaningful Use Diagnoses (Choose all that apply): None applicable Ischemic Stroke Statin Dosing Therapy Reference: STATIN DOSE THERAPY REFERENCE: * Patients > 75 years receive moderate or high dose statin therapy. * Patients 75 years or YOUNGER should receive HIGH intensity statin dose unless contraindicated. You will be required to document reason for non-treatment if statin daily dose does not meet guidelines. HIGH DOSE STATIN THERAPY DAILY Atorvastatin > than or = to 40 mg Rosuvastatin > than or = to 20 mg Amlodipine + Atorvastatin > than or = to 2.5/40 mg Ezetimibe + Simvastatin 10/80 mg Simvastatin 80mg Discharge Plan Admission Admit Date/Time: 03/07/25 11:20 Attending Provider: Chin Hawthorne Primary Care Provider: Allie Stanton Discharge Orders/Prescriptions Prescriptions: New acetaminophen 500 mg Tablet 1,000 mg PO Q8 Qty: 0 0RF lidocaine 5 % Adhesive Patch,Medicated 1 patch topical DAILY Qty: 0 0RF Protocol: *Topical Application Instructions APPLICATION INSTRUCTIONS: lumbar Continued carvedilol 3.125 mg tablet 3.125 mg PO BID 30 Days Qty: 180 3RF Jardiance 10 mg tablet 10 mg PO DAILY 30 Days Qty: 90 3RF clopidogrel 75 mg tablet 75 mg PO DAILY 30 Days Qty: 90 3RF Rx Instructions: Discontinue if platelet count drops less than 50,000 or hemoglobin less than 8 g% omeprazole 20 mg capsule,delayed release(DR/EC) 20 mg PO QODAY nitroglycerin 0.4 mg tablet, sublingual 0.4 mg sublingual Q5-15M PRN (Reason: chest pain) Qty: 20 3RF Rx Instructions: do not exceed 3 doses per episode multivitamin with folic acid 1 TABLET tablet 1 tab PO DAILYCM Qty: 30 0RF Patient Comments: supplement (DME) True Metrix Glucose Test Strip Strip MISCELLANEOUS DAILY aspirin 81 mg Tablet,Delayed Release (Dr/Ec) 81 mg PO BREAKFAST 30 Days Qty: 30 4RF furosemide 20 mg tablet 20 mg PO DAILY isosorbide mononitrate 30 mg tablet extended release 24 hr 30 mg PO DAILY losartan 100 mg tablet 100 mg PO DAILY atorvastatin 80 mg tablet 80 mg PO QHS amlodipine 5 mg tablet 5 mg PO DAILY prednisone 10 mg tablet See Taper PO DAILY Taper: Prednisone Taper 40 mg WITH BREAKFAST for 5 Days 20 mg WITH BREAKFAST for 5 Days 10 mg WITH BREAKFAST for 5 Days Rx Instructions: SEE TAPER orphenadrine citrate 100 mg tablet extended release 100 mg PO BID Referrals / Follow Up: Allie Stanton MD [Primary Care Provider] - Disposition Disposition (needs filled in before D/C Order can be placed): Alf Facility Charges/Coding Visit Charges Inpatient E&M: 20014 Disch Hosp >30min 03/08/25 1441 Cosigner Signature (if applicable): CC: Dr. Allie Stanton MD; Dr. Chin Hawthorne MD~ Signed [facility]06-19-2025 Discharge summary [facility] Medical Records Department [address] [place] [address] [facility] MR#: [id number] Acct: [id number] Name: LUCILLE THURMAN Rep #:[id number] : 1935 89 From: Chin do MD PCP: Dr. Allie Stanton MD Status:[facility] Certification of patient admission REQUIRED AT TIME OF ADMISSION. I CERTIFY THAT POST-HOSPITAL ECF SERVICES ARE REQUIRED TO BE GIVEN ON AN IN-PATIENT BASIS BECAUSE OF THE ABOVE NAMED PATIENT'S NEED FOR INTERMEDIATE CARE ON A CONTINUING BASIS FOR THE CONDITION(S) FOR WHICH HE/SHE WAS RECEIVING IN-PATIENT HOSPITAL SERVICES PRIOR TO HIS/HER TRANSFER TO THE ECF. 03/08/25 1435 Diet Diet Order/Speech Therapy: INPATIENT Hospital Diet / Speech Therapy Order(s) 03/07/25 12:33 Diet: Cardiac - Heart Healthy Food consistency:: Regular Liquid Consistency:: Regular/Thin Routine Orders/Code Status Routine Lab Work: CBC and BMP DC O2, CPAP, BIPAP needs Home O2 Discharge instructions: No Therapies Physical Therapy: Eval and Treat Occupational Therapy: Eval and Treat Problem/Diagnosis (1) Back pain: Status: Acute Code(s): M54.9 - Dorsalgia, unspecified Plan 1. Back pain with mild radiculopathy down her right leg with an inability to complete ADLs ? The radiculopathy seems to have improved ? Continue with multimodal pain management ? Can continue with the prednisone taper from the emergency room 40 mg p.o. daily for 5 days then 20 for 5 days then 10 mg for 5 days ? PT/OT ? MRI with moderate spinal stenosis of L4-5 with right L4 nerve compression and mild to moderate canal narrowing at L3-4. There is an asymmetric left L5 foraminal narrowing with bulging disc abuttingthe nerve within the neuroforamen ? Given the fact that she is 89 years old I feel that it is more reasonable to trial physical therapy first and medications prior to evaluation with neurosurgery ? Will consult case management for discharge planning and possible placement 2. Essential HTN/HLD/coronary artery disease/chronic diastolic CHF ? Echo from 10/04/2024 with an EF of 65% and stage I diastolic dysfunction and anRVSP of 41 mmHg ? Heart cath on 10/06/2024 with a 50% stenosis in her mid LAD as well as a 50% stenosis in her mid RCA ? Will continue with her home blood pressure medications ? Monitor make adjustments as necessary ? Continue with aspirin and Plavix ? Continue with Jardiance both for her diastolic heart failure and her type 2 diabetes 3. DM2 ? Will continue with Jardiance ? Continue with sliding scale insulin ? Accu-Cheks ACHS ? Will monitor and make adjustments as necessary 4. GERD ? Stable ? Continue with PPI DVT: Lovenox Allergies/Procedures Done in Hospital Allergies metformin Allergy (Verified 03/07/25 09:51) Hives morphine Adverse Reaction (Verified 03/07/25 09:51) Nausea oxycodone (Oxycodone) Adverse Reaction (Verified 03/07/25 09:51) Nausea Procedures: None Type of Care/Length of Stay Estimated LOS: Convalescent Care Less Than 30 days Type of Care Needed: Skilled Rehab Potential: Good Prognosis: Good Additional Orders/Day of Discharge Day of Discharge: 03/08/25 Discharge Plan Admission Admit Date/Time: 03/07/25 11:20 Attending Provider: Chin Hawthorne Primary Care Provider: Allie Stanton Discharge Orders/Prescriptions Prescriptions: New acetaminophen 500 mg Tablet 1,000 mg PO Q8 Qty: 0 0RF lidocaine 5 % Adhesive Patch,Medicated 1 patch topical DAILY Qty: 0 0RF Protocol: *Topical Application Instructions APPLICATION INSTRUCTIONS: lumbar Continued carvedilol 3.125 mg tablet 3.125 mg PO BID 30 Days Qty: 180 3RF Jardiance 10 mg tablet 10 mg PO DAILY 30 Days Qty: 90 3RF clopidogrel 75 mg tablet 75 mg PO DAILY 30 Days Qty: 90 3RF Rx Instructions: Discontinue if platelet count drops less than 50,000 or hemoglobin less than 8 g% omeprazole 20 mg capsule,delayed release(DR/EC) 20 mg PO QODAY nitroglycerin 0.4 mg tablet, sublingual 0.4 mg sublingual Q5-15M PRN (Reason: chest pain) Qty: 20 3RF Rx Instructions: do not exceed 3 doses per episode multivitamin with folic acid 1 TABLET tablet 1 tab PO DAILYCM Qty: 30 0RF Patient Comments: supplement (DME) True Metrix Glucose Test Strip Strip MISCELLANEOUS DAILY aspirin 81 mg Tablet,Delayed Release (Dr/Ec) 81 mg PO BREAKFAST 30 Days Qty: 30 4RF furosemide 20 mg tablet 20 mg PO DAILY isosorbide mononitrate 30 mg tablet extended release 24 hr 30 mg PO DAILY losartan 100 mg tablet 100 mg PO DAILY atorvastatin 80 mg tablet 80 mg PO QHS amlodipine 5 mg tablet 5 mg PO DAILY prednisone 10 mg tablet See Taper PO DAILY Taper: Prednisone Taper 40 mg WITH BREAKFAST for 5 Days 20 mg WITH BREAKFAST for 5 Days 10 mg WITH BREAKFAST for 5 Days Rx Instructions: SEE TAPER orphenadrine citrate 100 mg tablet extended release 100 mg PO BID Referrals / Follow Up: Allie Stanton MD [Primary Care Provider] - Disposition Disposition (needs filled in before D/C Order can be placed): Alf Facility 03/08/25 1435 Cosigner Signature (if applicable): CC: Dr. Allie Stanton MD ~ [facility]06-19-2025 Progress note Author Chin Hawthorne [facility] Note Date/Time March 08, 2025 9:42 am [facility] Medical Records Department [address] [place] [address] Progress Note - Hospitalist 03/08/25 0940 MR#: [id number] Acct: [id number] Name: LUCILLE THURMAN Rep #:[id number] : 1935 89 From: Chin do MD PCP: Dr. Allie Stanton MD Status:AD M [facility] Location: [place] [id number] Subjective Subjective Doing well, pain is continuing to improve. Continue with PT/OT Objective Data Objective Data Vital Signs: Vital Signs Temp Pulse Resp BP Pulse Ox O2 Del Method 98.3 F 62 16 139/54 H 94 Room Air 03/08/25 07:39 03/08/25 07:39 03/08/25 07:39 03/08/25 07:39 03/08/25 07:39 03/08/25 07:39 Oxygen Delivery Method Room Air Weight: 160 lb 0.889 oz Body Mass Index (BMI) 27.4 Intake & Output: Intake and Output for Last 24 Hours 03/07/25 03/08/25 03/09/25 03:59 03:59 03:59 Output Total 200 / 200 200 / 200 Balance -200 / -200 -200 / -200 Lab / Micro Data 03/08/25 05:21 03/08/25 05:21 Labs: Laboratory Results - last 24 hr 03/07/25 10:35: WBC 11.3 H, RBC 3.48 L, Hgb 10.2 L, Hct 31.0 L, MCV 89.1, MCH 29.3, MCHC 32.9, RDW Std Deviation 42.3, RDW Coeff of Najma 13.0, Plt Count 291, MPV 8.9, Immature Gran % (Auto) 0.600, Neut % (Auto) 86.6 H, Lymph % (Auto) 6.9 L, Anderson % (Auto) 5.2, Eos % (Auto) 0.3, Baso % (Auto) 0.4, Absolute Neuts (auto)9.8 H, Absolute Lymphs (auto) 0.78 L, Nucleated RBC % 0, Sodium 135, Potassium 4.4, Chloride 102, Carbon Dioxide 20.3 L, Anion Gap 13, BUN 36 H, Creatinine 1.33 H, Est GFR (MDRD) Non-Af 38 L, BUN/Creatinine Ratio 27.1 H, Glucose 207 H, Calcium 9.2 03/07/25 14:08: POC Glucose 218 H 03/08/25 05:21: WBC 10.5, RBC 3.22 L, Hgb 9.5 L, Hct 29.4 L, MCV 91.3, MCH 29.5,MCHC 32.3, RDW Std Deviation 42.4, RDW Coeff of Najma 12.9, Plt Count 294, MPV 9.1, Immature Gran % (Auto) 0.500, Neut % (Auto) 76.3 H, Lymph % (Auto) 14.4 L, Anderson % (Auto) 8.3, Eos % (Auto) 0.1, Baso % (Auto) 0.4, Absolute Neuts (auto) 8.0 H, Absolute Lymphs (auto) 1.51, Nucleated RBC % 0, Sodium 137, Potassium 4.5, Chloride 104, Carbon Dioxide 22.2, Anion Gap 11, BUN 39 H, Creatinine 1.34 H, Estim Creat Clear Calc 27.79 L, Est GFR (MDRD) Non-Af 38 L, BUN/Creatinine Ratio 29.4 H, Glucose 112 H, Calcium 8.9 Radiography Diagnostic Testing: Radiology Impression Lumbar Spine MRI 03/07/25 12:33 IMPRESSION: 1. Moderate spinal stenosis at L4-5 with right L4 nerve compression. 2. Lunc-ks-uqfvvxlp canal narrowing at L3-4. 3. Asymmetric left L5 foraminal narrowing with bulging disc abutting the nerve within the neural foramen Reading Location: [facility] Physical Exam Narrative General: Alert, Oriented x3, Cooperative, No apparent distress HEENT: Atraumatic, PERRLA, EOMI, Normocephalic, hard of hearing Oral: Moist Mucosa Neck: Supple, No JVD Lungs: Diminished, Normal air movement, No rhonchi, No wheeze, No rales Cardiovascular: Regular rate, Regular Rhythm, Normal S1, Normal S2, No murmurs Abdomen: Soft, Non Tender, Non-Distended, No Hepato-splenomegaly Extremities: No edema, Capillary Refill Less than 3 Seconds Skin: No rashes, No breakdown Musculoskeletal: Mild tenderness palpation of her lumbar region Neurological: No focal neurological deficits, moves all extremities, Sensory exam intact to light touch and pain Psych/Mental Status: Normal Affect, Appropriate Assessment & Plan Assessment/Plan (1) Back pain: PLAN: Plan 1. Back pain with mild radiculopathy down her right leg with an inability to complete ADLs ? The radiculopathy seems to have improved ? Continue with multimodal pain management ? Can continue with the prednisone taper from the emergency room 40 mg p.o. daily for 5 days then 20 for 5 days then 10 mg for 5 days ? PT/OT ? MRI with moderate spinal stenosis of L4-5 with right L4 nerve compression and mild to moderate canal narrowing at L3-4. There is an asymmetric left L5 foraminal narrowing with bulging disc abutting the nerve within the neuroforamen ? Given the fact that she is 89 years old I feel that it is more reasonable to trial physical therapy first and medications prior to evaluation with neurosurgery ? Will consult case management for discharge planning and possible placement 2. Essential HTN/HLD/coronary artery disease/chronic diastolic CHF ? Echo from 10/04/2024 with an EF of 65% and stage I diastolic dysfunction and anRVSP of 41 mmHg ? Heart cath on 10/06/2024 with a 50% stenosis in her mid LAD as well as a 50% stenosis in her mid RCA ? Will continue with her home blood pressure medications ? Monitor make adjustments as necessary ? Continue with aspirin and Plavix ? Continue with Jardiance both for her diastolic heart failure and her type 2 diabetes 3. DM2 ? Will continue with Jardiance ? Continue with sliding scale insulin ? Accu-Cheks ACHS ? Will monitor and make adjustments as necessary 4. GERD ? Stable ? Continue with PPI DVT: Lovenox Charges/Coding Visit Charges Inpatient E&M: 27961 Subs Hosp L2 03/08/25 0942 <Electronically signed by Chni Hawthorne MD> Cosigner Signature (if applicable): CC: ~ Signed [facility] Work Phone: 1(733) 394-834506-19-2025 History and physical note Author Chin Hawthorne [facility] Note Date/Time March 08, 2025 9:40 am [facility] Medical Records Department [address] [place] [address] H&P Exam - Hospitalist 03/07/252045 MR#: [id number] Acct: [id number] Name: LUCILLE THURMAN Rep #:[id number] : 1935 89 From: Chin do MD PCP: Dr. Allie Stanton MD Status:AD M [facility] Location: [facility] [id number] HPI - General General Date of Admission: 03/07/25 HPI Narrative LUCILLE THURMAN, is a 89 F who presents to the hospital with acute on subacute back pain. She says it was going down her legs but now its much improved thoughshe still has significant pain with ambulation. She denies any significant trauma prior to this happening she said that she was getting up and trying to move when she noticed the pain in her back. She initially noticed pain a coupleweeks ago but it is steadily gotten worse and then on 03/02/2025 she was trying to move and twisted and had a much more significant and worse pain. The pain would go down her right leg. Her straight leg raises negative though she does have some pain when you are lowering her leg indicating more of a low back musculoskeletal issue versus an actual nerve compression. No fevers or chills. She had presented initially to the ER on 03/03/2025 CT demonstrated degenerative disc disease but nothing acute or significant. No loss of bowel or bladder function either on her initial visit or on this visit. [facility] Medical History Chronic kidney disease, stage 3b Acute diastolic (congestive) heart failure NSTEMI (non-ST elevated myocardial infarction) Anemia Diabetes Non-smoker Skin cancer Dehydration GERD (gastroesophageal reflux disease) Acute blood loss anemia Closed left hip fracture HTN (hypertension) Hypercholesteremia Type II diabetes mellitus Home Medications ?Medication ?Instructions ?Recorded ?Last Taken ?Type multivitamin with folic acid 400 1 tab PO DAILYCM abram min #30 tabs 02/11/15 03/06/25 Rx mcg tablet blood sugar diagnostic (True 10/04/24 Unknown History Metrix Glucose Test Strip) aspirin 81 mg tablet,delayed 81 mg PO BREAKFAST 30 day s #30 tabs 10/08/24 03/06/25 Rx release carvedilol 3.125 mg tablet 3.125 mg PO BID 30 days #18 0 tabs 10/12/24 03/06/25 Rx clopidogrel 75 mg tablet 75 mg PO DAILY 30 days #90 t abs 10/12/24 03/06/25 Rx empagliflozin 10 mg tablet 10 mg PO DAILY 30 days #90 tabs 10/12/24 03/06/25 Rx (Jardiance) nitroglycerin 0.4 mg sublingual 0.4 mg sublingual Q5-1 5M PRN chest 01/01/25 Unknown Rx tablet pain #20 tabs omeprazole 20 mg capsule,delayed 20 mg PO QODAY 03/06/25 History release furosemide 20 mg tablet 20 mg PO DAILY 03/03/2502/18 History isosorbide mononitrate 30 mg 30 mg PO DAILY 03/03/25 0 03/06/25 History tablet,extended release 24 hr losartan 100 mg tablet 100 mg PO DAILY 03/03/25 History amlodipine 5 mg tablet 5 mg PO DAILY 03/07/2503/06 History atorvastatin 80 mg tablet 80 mg PO QHS cholesterol 03/06/25 History orphenadrine citrate 100 mg 100 mg PO BID 03/07/25 History tablet,extended release prednisone 10 mg tablet See Taper PO DAILY 03/07/25 03/07/25 History Allergy/AdvReac Type Severity Reaction Status Date / Time metformin Allergy Hives Verified 03/07/25 09:51 morphine AdvReac Nausea Verified 03/07/25 09:51 oxycodone (Oxycodone) AdvReac Nausea Verified 03/07/25 09:51 Family History Sister Breast cancer Colon cancer Diabetes Uncle Heart disease Brother Kidney disease Surgical History History of appendectomy History of cholecystectomy History of hip replacement History of shoulder replacement S/P ORIF (open reduction internal fixation) fracture Social History household members: none current occupational status: retired Smoking Status: Never smoker alcohol intake: never substance use type: does not use ROS Constitutional Constitutional: Denies chills, fatigue, fever(s) or malaise Eyes Eyes: Denies blurry vision ENT HEENT: Denies headache(s) or nasal discharge Cardiovascular Cardiovascular: Denies chest pain, dyspnea on exertion or syncope Respiratory/Chest Respiratory/Chest: Denies cough, shortness of breath at rest or shortness of breath with exertion Gastrointestinal Gastrointestinal: Denies constipation, diarrhea, nausea or vomiting Genitourinary Genitourinary: Denies dysuria Musculoskeletal Musculoskeletal: Reports back pain Neurologic Neurologic: Denies focal weakness, numbness or tremor(s) Psychiatric Psychiatric: Denies anxiety or depression Vital Signs Vital Signs Vital Signs: 03/07/25 09:51 03/07/25 11:26 03/07/25 14:00 Temperature 97.2 F L 97.8 F 97.4 F L Temperature Source Temporal Temporal Pulse Rate 66 61 66 Respiratory Rate 14 14 18 Blood Pressure 127/85 H 125/88 H 145/60 H Blood Pressure Mean 99 100 88 Blood Pressure Source Monitor Blood Pressure Position Semi-Fowlers Blood Pressure Location Left Arm Pulse Ox 98 99 100 Oxygen Delivery Method Room Air Room Air 03/07/25 16:45 Temperature 98.1 F Temperature Source Temporal Pulse Rate 62 Respiratory Rate 18 Blood Pressure 134/58 H Blood Pressure Mean 83 Blood Pressure Source Monitor Blood Pressure Position Semi-Fowlers Blood Pressure Location Left Arm Pulse Ox 95 Oxygen Delivery Method Room Air Weight Weight: 160 lb 0.889 oz Body Mass Index (BMI) 27.4 Physical Exam Narrative General: Alert, Oriented x3, Cooperative, No apparent distress HEENT: Atraumatic, PERRLA, EOMI, Normocephalic, hard of hearing Oral: Moist Mucosa Neck: Supple, No JVD Lungs: Diminished, Normal air movement, No rhonchi, No wheeze, No rales Cardiovascular: Regular rate, Regular Rhythm, Normal S1, Normal S2, No murmurs Abdomen: Soft, Non Tender, Non-Distended, No Hepato-splenomegaly Extremities: No edema, Capillary Refill Less than 3 Seconds Skin: No rashes, No breakdown Musculoskeletal: Mild tenderness palpation of her lumbar region, straight leg raise is negative though it hurts when you are lowering the leg Neurological: No focal neurological deficits, moves all extremities, Sensory exam intact to light touch and pain Psych/Mental Status: Normal Affect, Appropriate Results Lab / Micro Data 03/08/25 05:21 03/08/25 05:21 Labs: Laboratory Results - last 24 hr 03/07/25 10:35: WBC 11.3 H, RBC 3.48 L, Hgb 10.2 L, Hct 31.0 L, MCV 89.1, MCH 29.3, MCHC 32.9, RDW Std Deviation 42.3, RDW Coeff of Najma 13.0, Plt Count 291, MPV 8.9, Immature Gran % (Auto) 0.600, Neut % (Auto) 86.6 H, Lymph % (Auto) 6.9 L, Anderson % (Auto) 5.2, Eos % (Auto) 0.3, Baso % (Auto) 0.4, Absolute Neuts (auto)9.8 H, Absolute Lymphs (auto) 0.78 L, Nucleated RBC % 0, Sodium 135, Potassium 4.4, Chloride 102, Carbon Dioxide 20.3 L, Anion Gap 13, BUN 36 H, Creatinine 1.33 H, Est GFR (MDRD) Non-Af 38 L, BUN/Creatinine Ratio 27.1 H, Glucose 207 H, Calcium 9.2 03/07/25 14:08: POC Glucose 218 H Assessment & Plan Assessment/Plan (1) Back pain: PLAN: Plan 1. Back pain with mild radiculopathy down her right leg with an inability to complete ADLs ? The radiculopathy seems to have improved ? Continue with multimodal pain management ? Can continue with the prednisone taper from the emergency room 40 mg p.o. daily for 5 days then 20 for 5 days then 10 mg for 5 days ? PT/OT ? MRI is pending ? Will consult case management for discharge planning and possible placement 2. Essential HTN/HLD/coronary artery disease/chronic diastolic CHF ? Echo from 10/04/2024 with an EF of 65% and stage I diastolic dysfunction and anRVSP of 41 mmHg ? Heart cath on 10/06/2024 with a 50% stenosis in her mid LAD as well as a 50% stenosis in her mid RCA ? Will continue with her home blood pressure medications ? Monitor make adjustments as necessary ? Continue with aspirin and Plavix ? Continue with Jardiance both for her diastolic heart failure and her type 2 diabetes 3. DM2 ? Will continue with Jardiance ? Continue with sliding scale insulin Accu-Cheks ACHS ? Will monitor and make adjustments as necessary 4. GERD ? Stable ? Continue with PPI DVT: Lovenox Charges/Coding Visit Charges Inpatient E&M: 53726 Init Hosp L2 03/08/25 0940 <Electronically signed by Chin Hawthorne MD> Cosigner Signature (if applicable): CC: Dr. Allie Stanton MD; Dr. Chin Hawthorne MD~ Signed [facility] Work Phone: [phone] 822-594906-19-2025 Progress note [facility] Medical Records Department [address] [place] [address] Progress Note - Hospitalist 03/08/25 0940 MR#: [id number] Acct: [id number] Name: LUCILLE THURMAN Rep #:[id number] : 1935 89 From: Chin do MD PCP: Dr. Allie Stanton MD Status:AD M [place] Location: MS3 [id number] Subjective Subjective Doing well, pain is continuing to improve. Continue with PT/OT Objective Data Objective Data Vital Signs: Vital Signs Temp Pulse Resp BP Pulse Ox O2 Del Method 98.3 F 62 16 139/54 H 94 Room Air 03/08/25 07:39 03/08/25 07:39 03/08/25 07:39 03/08/25 07:39 03/08/25 07:39 03/08/25 07:39 Oxygen Delivery Method Room Air Weight: 160 lb 0.889 oz Body Mass Index (BMI) 27.4 Intake & Output: Intake and Output for Last 24 Hours 03/07/25 03/08/25 03/09/25 03:59 03:59 03:59 Output Total 200 / 200 200 / 200 Balance -200 / -200 -200 / -200 Lab / Micro Data 03/08/25 05:21 03/08/25 05:21 Labs: Laboratory Results - last 24 hr 03/07/25 10:35: WBC 11.3 H, RBC 3.48 L, Hgb 10.2 L, Hct 31.0 L, MCV 89.1, MCH 29.3, MCHC 32.9, RDW Std Deviation 42.3, RDW Coeff of Najma 13.0, Plt Count 291, MPV 8.9, Immature Gran % (Auto) 0.600, Neut % (Auto) 86.6 H, Lymph % (Auto) 6.9 L, Anderson % (Auto) 5.2, Eos % (Auto) 0.3, Baso % (Auto) 0.4, Absolute Neuts (auto)9.8 H, Absolute Lymphs (auto) 0.78 L, Nucleated RBC % 0, Sodium 135, Potassium 4.4, Chloride 102, Carbon Dioxide 20.3 L, Anion Gap 13, BUN 36 H, Creatinine 1.33 H, Est GFR (MDRD) Non-Af 38 L, BUN/Creatinine Ratio 27.1 H, Glucose 207 H, Calcium 9.2 03/07/25 14:08: POC Glucose 218 H 03/08/25 05:21: WBC 10.5, RBC 3.22 L, Hgb 9.5 L, Hct 29.4 L, MCV 91.3, MCH 29.5,MCHC 32.3, RDW Std Deviation 42.4, RDW Coeff of Najma 12.9, Plt Count 294, MPV 9.1, Immature Gran % (Auto) 0.500, Neut % (Auto) 76.3 H, Lymph % (Auto) 14.4 L, Anderson % (Auto) 8.3, Eos % (Auto) 0.1, Baso % (Auto) 0.4, Absolute Neuts (auto) 8.0 H, Absolute Lymphs (auto) 1.51, Nucleated RBC % 0, Sodium 137, Potassium 4.5, Chloride 104, Carbon Dioxide 22.2, Anion Gap 11, BUN 39 H, Creatinine 1.34 H, Estim Creat Clear Calc 27.79 L, Est GFR (MDRD) Non-Af 38 L, BUN/Creatinine Ratio 29.4 H, Glucose 112 H, Calcium 8.9 Radiography Diagnostic Testing: Radiology Impression Lumbar Spine MRI 03/07/25 12:33 IMPRESSION: 1. Moderate spinal stenosis at L4-5 with right L4 nerve compression. 2. Aqji-mh-fqiynwvz canal narrowing at L3-4. 3. Asymmetric left L5 foraminal narrowing with bulging disc abutting the nerve within the neural foramen Reading Location: [facility] Physical Exam Narrative General: Alert, Oriented x3, Cooperative, No apparent distress HEENT: Atraumatic, PERRLA, EOMI, Normocephalic, hard of hearing Oral: Moist Mucosa Neck: Supple, No JVD Lungs: Diminished, Normal air movement, No rhonchi, No wheeze, No rales Cardiovascular: Regular rate, Regular Rhythm, Normal S1, Normal S2, No murmurs Abdomen: Soft, Non Tender, Non-Distended, No Hepato-splenomegaly Extremities: No edema, Capillary Refill Less than 3 Seconds Skin: No rashes, No breakdown Musculoskeletal: Mild tenderness palpation of her lumbar region Neurological: No focal neurological deficits, moves all extremities, Sensory exam intact to light touch and pain Psych/Mental Status: Normal Affect, Appropriate Assessment & Plan Assessment/Plan (1) Back pain: PLAN: Plan 1. Back pain with mild radiculopathy down her right leg with an inability to complete ADLs ? The radiculopathy seems to have improved ? Continue with multimodal pain management ? Can continue with the prednisone taper from the emergency room 40 mg p.o. daily for 5 days then 20 for 5 days then 10 mg for 5 days ? PT/OT ? MRI with moderate spinal stenosis of L4-5 with right L4 nerve compression and mild to moderate canal narrowing at L3-4. There is an asymmetric left L5 foraminal narrowing with bulging disc abuttingthe nerve within the neuroforamen ? Given the fact that she is 89 years old I feel that it is more reasonable to trial physical therapy first and medications prior to evaluation with neurosurgery ? Will consult case management for discharge planning and possible placement 2. Essential HTN/HLD/coronary artery disease/chronic diastolic CHF ? Echo from 10/04/2024 with an EF of 65% and stage I diastolic dysfunction and anRVSP of 41 mmHg ? Heart cath on 10/06/2024 with a 50% stenosis in her mid LAD as well as a 50% stenosis in her mid RCA ? Will continue with her home blood pressure medications ? Monitor make adjustments as necessary ? Continue with aspirin and Plavix ? Continue with Jardiance both for her diastolic heart failure and her type 2 diabetes 3. DM2 ? Will continue with Jardiance ? Continue with sliding scale insulin ? Accu-Cheks ACHS ? Will monitor and make adjustments as necessary 4. GERD ? Stable ? Continue with PPI DVT: Lovenox Charges/Coding Visit Charges Inpatient E&M: 79060 Subs Hosp L2 03/08/25 0942 Cosigner Signature (if applicable): CC: ~ Signed [facility]06-19-2025 History and physical note [facility] Medical Records Department [address] [place] [address] H&P Exam - Hospitalist 03/07/252045 MR#: [id number] Acct: [id number] Name: LUCILLE THURMAN Rep #:[id number] : 1935 89 From: Chin do MD PCP: Dr. Allie Stanton MD Status:AD [facility] Location: [facility] [id number] [facility] - General General Date of Admission: 03/07/25 HPI Narrative LUCILLE THURMAN, is a 89 F who presents to the hospital with acute on subacute back pain. She says itwas going down her legs but now its much improved thoughshe still has significant pain with ambulation. She denies any significant trauma prior to this happening she said that she was getting up and trying to move when she noticed the pain in her back. She initially noticed pain a coupleweeks ago but it is steadily gotten worse and then on 03/02/2025 she was trying to move and twisted and had a much more significant and worse pain. The pain would go down her right leg. Her straight leg raises negative though she does have some pain when you are lowering her leg indicating more of a low back musculoskeletal issue versus an actual nerve compression. No fevers or chills. She had presented initially to the ER on 03/03/2025 CT demonstrated degenerative disc disease but nothing acute or significant. No loss of bowel or bladder function either on her initial visit or on this visit. [facility] Medical History Chronic kidney disease, stage 3b Acute diastolic (congestive) heart failure NSTEMI (non-ST elevated myocardial infarction) Anemia Diabetes Non-smoker Skin cancer Dehydration GERD (gastroesophageal reflux disease) Acute blood loss anemia Closed left hip fracture HTN (hypertension) Hypercholesteremia Type II diabetes mellitus Home Medications ?Medication ?Instructions ?Recorded ?Last Taken ?Type multivitamin with folic acid 400 1 tab PO DAILYCM abram min #30 tabs 02/11/15 03/06/25 Rx mcg tablet blood sugar diagnostic (True 10/04/24 Unknown History Metrix Glucose Test Strip) aspirin 81 mg tablet,delayed 81 mg PO BREAKFAST 30 day s #30 tabs 10/08/24 03/06/25 Rx release carvedilol 3.125 mg tablet 3.125 mg PO BID 30 days #18 0 tabs 10/12/24 03/06/25 Rx clopidogrel 75 mg tablet 75 mg PO DAILY 30 days #90 t abs 10/12/24 03/06/25 Rx empagliflozin 10 mg tablet 10 mg PO DAILY 30 days #90 tabs 10/12/24 03/06/25 Rx (Jardiance) nitroglycerin 0.4 mg sublingual 0.4 mg sublingual Q5-1 5M PRN chest 01/01/25 Unknown Rx tablet pain #20 tabs omeprazole 20 mg capsule,delayed 20 mg PO QODAY 03/06/25 History release furosemide 20 mg tablet 20 mg PO DAILY 03/03/2502/18 History isosorbide mononitrate 30 mg 30 mg PO DAILY 03/03/25 0 03/06/25 History tablet,extended release 24 hr losartan 100 mg tablet 100 mg PO DAILY 03/03/25 History amlodipine 5 mg tablet 5 mg PO DAILY 03/07/2503/06 History atorvastatin 80 mg tablet 80 mg PO QHS cholesterol 03/06/25 History orphenadrine citrate 100 mg 100 mg PO BID 03/07/25 History tablet,extended release prednisone 10 mg tablet See Taper PO DAILY 03/07/25 03/07/25 History Allergy/AdvReac Type Severity Reaction Status Date / Time metformin Allergy Hives Verified 03/07/25 09:51 morphine AdvReac Nausea Verified 03/07/25 09:51 oxycodone (Oxycodone) AdvReac Nausea Verified 03/07/25 09:51 Family History Sister Breast cancer Colon cancer Diabetes Uncle Heart disease Brother Kidney disease Surgical History History of appendectomy History of cholecystectomy History of hip replacement History of shoulder replacement S/P ORIF (open reduction internal fixation) fracture Social History household members: none current occupational status: retired Smoking Status: Never smoker alcohol intake: never substance use type: does not use ROS Constitutional Constitutional: Denies chills, fatigue, fever(s) or malaise Eyes Eyes: Denies blurry vision ENT HEENT: Denies headache(s) or nasal discharge Cardiovascular Cardiovascular: Denies chest pain, dyspnea on exertion or syncope Respiratory/Chest Respiratory/Chest: Denies cough, shortness of breath at rest or shortness of breath with exertion Gastrointestinal Gastrointestinal: Denies constipation, diarrhea, nausea or vomiting Genitourinary Genitourinary: Denies dysuria Musculoskeletal Musculoskeletal: Reports back pain Neurologic Neurologic: Denies focal weakness, numbness or tremor(s) Psychiatric Psychiatric: Denies anxiety or depression Vital Signs Vital Signs Vital Signs: 03/07/25 09:51 03/07/25 11:26 03/07/25 14:00 Temperature 97.2 F L 97.8 F 97.4 F L Temperature Source Temporal Temporal Pulse Rate 66 61 66 Respiratory Rate 14 14 18 Blood Pressure 127/85 H 125/88 H 145/60 H Blood Pressure Mean 99 100 88 Blood Pressure Source Monitor Blood Pressure Position Semi-Fowlers Blood Pressure Location Left Arm Pulse Ox 98 99 100 Oxygen Delivery Method Room Air Room Air 03/07/25 16:45 Temperature 98.1 F Temperature Source Temporal Pulse Rate 62 Respiratory Rate 18 Blood Pressure 134/58 H Blood Pressure Mean 83 Blood Pressure Source Monitor Blood Pressure Position Semi-Fowlers Blood Pressure Location Left Arm Pulse Ox 95 Oxygen Delivery Method Room Air Weight Weight: 160 lb 0.889 oz Body Mass Index (BMI) 27.4 Physical Exam Narrative General: Alert, Oriented x3, Cooperative, No apparent distress HEENT: Atraumatic, PERRLA, EOMI, Normocephalic, hard of hearing Oral: Moist Mucosa Neck: Supple, No JVD Lungs: Diminished, Normal air movement, No rhonchi, No wheeze, No rales Cardiovascular: Regular rate, Regular Rhythm, Normal S1, Normal S2, No murmurs Abdomen: Soft, Non Tender, Non-Distended, No Hepato-splenomegaly Extremities: No edema, Capillary Refill Less than 3 Seconds Skin: No rashes, No breakdown Musculoskeletal: Mild tenderness palpation of her lumbar region, straight leg raise is negative though it hurts when you are lowering the leg Neurological: No focal neurological deficits, moves all extremities, Sensory exam intact to light touch and pain Psych/Mental Status: Normal Affect, Appropriate Results Lab / Micro Data 03/08/25 05:21 03/08/25 05:21 Labs: Laboratory Results - last 24 hr 03/07/25 10:35: WBC 11.3 H, RBC 3.48 L, Hgb 10.2 L, Hct 31.0 L, MCV 89.1, MCH 29.3, MCHC 32.9, RDW Std Deviation 42.3, RDW Coeff of Najma 13.0, Plt Count 291, MPV 8.9, Immature Gran % (Auto) 0.600, Neut % (Auto) 86.6 H, Lymph % (Auto) 6.9 L, Anderson % (Auto) 5.2, Eos % (Auto) 0.3, Baso % (Auto) 0.4, Absolute Neuts (auto)9.8 H, Absolute Lymphs (auto) 0.78 L, Nucleated RBC % 0, Sodium 135, Potassium 4.4, Chloride 102, Carbon Dioxide 20.3 L, Anion Gap 13, BUN 36 H, Creatinine 1.33 H, Est GFR (MDRD) Non-Af 38 L, BUN/Creatinine Ratio 27.1 H, Glucose 207 H, Calcium 9.2 03/07/25 14:08: POC Glucose 218 H Assessment & Plan Assessment/Plan (1) Back pain: PLAN: Plan 1. Back pain with mild radiculopathy down her right leg with an inability to complete ADLs ? The radiculopathy seems to have improved ? Continue with multimodal pain management ? Can continue with the prednisone taper from the emergency room 40 mg p.o. daily for 5 days then 20 for 5 days then 10 mg for 5 days ? PT/OT ? MRI is pending ? Will consult case management for discharge planning and possible placement 2. Essential HTN/HLD/coronary artery disease/chronic diastolic CHF ? Echo from 10/04/2024 with an EF of 65% and stage I diastolic dysfunction and anRVSP of 41 mmHg ? Heart cath on 10/06/2024 with a 50% stenosis in her mid LAD as well as a 50% stenosis in her mid RCA ? Will continue with her home blood pressure medications ? Monitor make adjustments as necessary ? Continue with aspirin and Plavix ? Continue with Jardiance both for her diastolic heart failure and her type 2 diabetes 3. DM2 ? Will continue with Jardiance ? Continue with sliding scale insulin Accu-Cheks ACHS ? Will monitor and make adjustments as necessary 4. GERD ? Stable ? Continue with PPI DVT: Lovenox Charges/Coding Visit Charges Inpatient E&M: 63210 Init Hosp L2 03/08/25 0940 Cosigner Signature (if applicable): CC: Dr. Allie Stanton MD; Dr. Chin Hawthorne MD~ Signed [facility]06-18-2025 Discharge summary Author Valeria Henry [facility] Note Date/Time March 07, 2025 3:14 pm [facility] Medical Records Department [address] [place] [address] Emergency Department Summary 03/07/25 MR#: [id number] Acct: [id number] Name: LUCILLE THURMAN Rep #:[id number] : 1935 89 From: Valeria Henry DO PCP: Dr. Allie Stanton MD Status:AD M [place] Location: [place]3 [id number] HPI History of Present Illness Chief Complaint: Back Detail of Chief Complaint: Back pain Informant: patient Narrative Narrative: Patient presents with back pain that started more than 2 weeks ago. She denies injury. She was seen in the emergency department 5 days ago and had a CT scan of her back and some basic labs and a urine. CT showed some degenerative changes especially at L4-5. Patient was treated with prednisone as well as Norflex as well as tramadol and Tylenol and not getting any relief. Today she could hardly get up and could not ambulate because of the pain. She denies fevers or chills or sweats. She denies loss of bowel or bladder function. At times she can describes pain rating down her right leg with numbness in her right foot. At rest her pain is a 5 out of 10 but with any movement or any attempted ambulation her pain is a 10 out of 10 [facility] Medical History Chronic kidney disease, stage 3b Acute diastolic (congestive) heart failure NSTEMI (non-ST elevated myocardial infarction) Anemia Diabetes Non-smoker Skin cancer Dehydration GERD (gastroesophageal reflux disease) Acute blood loss anemia Closed left hip fracture HTN (hypertension) Hypercholesteremia Type II diabetes mellitus Home Medications ?Medication ?Instructions ?Recorded ?Last Taken ?Type multivitamin with folic acid 400 1 tab PO DAILYCM abram min #30 tabs 02/11/15 03/02/25 Rx mcg tablet blood sugar diagnostic (True 10/04/24 Unknown History Metrix Glucose Test Strip) aspirin 81 mg tablet,delayed 81 mg PO BREAKFAST 30 day s #30 tabs 10/08/24 03/02/25 Rx release carvedilol 3.125 mg tablet 3.125 mg PO BID 30 days #18 0 tabs 10/12/24 03/02/25 Rx clopidogrel 75 mg tablet 75 mg PO DAILY 30 days #90 t abs 10/12/24 03/02/25 Rx empagliflozin 10 mg tablet 10 mg PO DAILY 30 days #90 tabs 10/12/24 03/02/25 Rx (Jardiance) nitroglycerin 0.4 mg sublingual 0.4 mg sublingual Q5-1 5M PRN chest 01/01/25 Unknown Rx tablet pain #20 tabs omeprazole 20 mg capsule,delayed 20 mg PO QODAY 03/02/25 History release furosemide 20 mg tablet 20 mg PO DAILY 03/03/2502/18 History isosorbide mononitrate 30 mg 30 mg PO DAILY awaiting m ail in 03/03/25 03/02/25 History tablet,extended release 24 hr RX, pt out of med losartan 100 mg tablet 100 mg PO DAILY 03/03/25 History amlodipine 5 mg tablet 5 mg PO DAILY 03/07/2503/06 History atorvastatin 80 mg tablet 80 mg PO QHS cholesterol 03/06/25 History orphenadrine citrate 100 mg 100 mg PO BID 03/07/25 History tablet,extended release prednisone 10 mg tablet See Taper PO DAILY 03/07/25 03/07/25 History Allergy/AdvReac Type Severity Reaction Status Date / Time metformin Allergy Hives Verified 03/07/25 09:51 morphine AdvReac Nausea Verified 03/07/25 09:51 oxycodone (Oxycodone) AdvReac Nausea Verified 03/07/25 09:51 Family History Sister Breast cancer Colon cancer Diabetes Uncle Heart disease Brother Kidney disease Surgical History History of appendectomy History of cholecystectomy History of hip replacement History of shoulder replacement S/P ORIF (open reduction internal fixation) fracture Social History household members: none current occupational status: retired Smoking Status: Never smoker alcohol intake: never substance use type: does not use ROS ROS ED Review of Systems ROS Unobtainable: other Constitutional Constitutional ED: Reports lethargy; Denies chills, fever(s), sweats or weight loss Eyes Eyes: Denies blurry vision, change in vision or diplopia ENT ENT ED: Denies rhinorrhea or sore throat Cardiovascular Cardiovascular: Denies chest pain, orthopnea or racing heartbeat Respiratory/Chest Respiratory/Chest: Denies cough, dyspnea, dyspnea on exertion, orthopnea or sputum Gastrointestinal Gastrointestinal: Denies abdominal pain, diarrhea, nausea or vomiting Genitourinary Genitourinary ED: Denies dysuria, hematuria or urinary frequency Musculoskeletal Musculoskeletal: Reports back pain; Denies arthralgias, myalgias or neck pain Integumentary Denies abscess, Abrasions or rash Neurologic Neurologic: Denies headache(s) or weakness Psychiatric Psychiatric: Denies anxiety, depression or suicidal thoughts Endocrine Endocrinology: Denies polydipsia, polyphagia or polyuria Hematologic/Lymphatic Hematologic/Lymphatic: Denies easy bleeding, easy bruising or lymphadenopathy Allergic/Immunologic Allergic/Immunologic ED: Denies mouth swelling, tongue swelling or urticaria EXAM Physical Exam Const Vital Signs: 03/07/25 09:51 Temperature 97.2 F L Temperature Source Temporal Pulse Rate 66 Respiratory Rate 14 Blood Pressure 127/85 H Blood Pressure Mean 99 Pulse Ox 98 Oxygen Delivery Method Room Air Positive well nourished and well developed General Appearance ED: well developed and NAD HEENT Reports TM's clear and moist mucous membranes normocephalic and atraumatic; Negative for trauma or tenderness Tympanic Membrane ED: Yes TM's clear Eyes PERRL and EOMs intact bilaterally General Eye ED: Negative for pale conjunctiva or scleral icterus Neck no lymphadenopathy, supple and no JVD General: Negative for tenderness Chest Wall inspection of chest normal and palpation of chest normal Chest: Negative for tenderness Resp normal respiratory effort and clear to auscultation bilaterally Effort and Inspection: Negative for respiratory distress or pain with movement Auscultation: Negative for rhonchi, wheezes or diminished lung sounds Cardio regular rate, regular rhythm, S1 normal heart sound, S2 normal heart sound and no murmurs Peripheral Pulses: pulses 2+ throughout GI normal to inspection, nondistended, normoactive bowel sounds, soft to palpation,non-tender, non-distended and no masses Back/Spine no CVA tenderness; Negative for no thoracic nor lumbar tenderness Back/Spine Narrative: Mild diffuse tenderness over the lumbar spine and lumbar paraspinal musculature bilaterally. No erythema or warmth noted. No skin infections noted. Positive straight leg raises while supine with right and left lower extremities at about 30 degrees. Deep tendon reflexes plus 1 out of 4 bilaterally at the patella andAchilles. She has normal L5 extension. Normal sensation to light touch. Extremity normal to inspection General Extremety ED: Negative for edema General Extremity: Negative for edema Neuro oriented x3, CN's II-XII intact bilaterally, no sensory deficits noted and gait normal Sensorium / Orientation: awake, alert, oriented to person, oriented to place andoriented to time Motor Exam: strength 5/5 throughout and strength abnormal Psych mental status grossly normal Skin no rashes or lesions noted and no wounds MDM MDM MDM Narrative Medical decision making narrative: Patient presents with ongoing back pain x 2 weeks. Severe pain with movement and ambulation. No acute signs or symptoms of cauda equina on exam. Suspect possibly radiculopathy. Patient's had a CT scan that showed some degenerative changes especially L4-5. Patient will be medicated with half a milligram of Dilaudid IV and some Zofran. Will obtain basic labs. Patient will require admission for pain control and possibly further imaging such as MRI to evaluate further. Lab Data Attestation: I reviewed the patient's lab results. Labs: Laboratory Results - last 24 hr 03/07/25 10:35 WBC 11.3 H RBC 3.48 L Hgb 10.2 L Hct 31.0 L MCV 89.1 MCH 29.3 MCHC 32.9 RDW Std Deviation 42.3 RDW Coeff of Najma 13.0 Plt Count 291 MPV 8.9 Immature Gran % (Auto) 0.600 Neut % (Auto) 86.6 H Lymph % (Auto) 6.9 L Anderson % (Auto) 5.2 Eos % (Auto) 0.3 Baso % (Auto) 0.4 Absolute Neuts (auto) 9.8 H Absolute Lymphs (auto) 0.78 L Nucleated RBC % 0 Discharge Plan Triage Chief Complaint: Back ED Provider: Valeria Henry Dx/Rx/DC Orders Clinical Impression: Back pain, Difficulty in walking, Acute lumbar radiculopathy Prescriptions: No Action carvedilol 3.125 mg tablet 3.125 mg PO BID 30 Days Qty: 180 3RF Jardiance 10 mg tablet 10 mg PO DAILY 30 Days Qty: 90 3RF clopidogrel 75 mg tablet 75 mg PO DAILY 30 Days Qty: 90 3RF Rx Instructions: Discontinue if platelet count drops less than 50,000 or hemoglobin less than 8 g% omeprazole 20 mg capsule,delayed release(DR/EC) 20 mg PO QODAY nitroglycerin 0.4 mg tablet, sublingual 0.4 mg sublingual Q5-15M PRN (Reason: chest pain) Qty: 20 3RF Rx Instructions: do not exceed 3 doses per episode multivitamin with folic acid 1 TABLET tablet 1 tab PO DAILYCM Qty: 30 0RF Patient Comments: supplement (DME) True Metrix Glucose Test Strip Strip MISCELLANEOUS DAILY aspirin 81 mg Tablet,Delayed Release (Dr/Ec) 81 mg PO BREAKFAST 30 Days Qty: 30 4RF furosemide 20 mg tablet 20 mg PO DAILY isosorbide mononitrate 30 mg tablet extended release 24 hr 30 mg PO DAILY losartan 100 mg tablet 100 mg PO DAILY atorvastatin 80 mg tablet 80 mg PO QHS amlodipine 5 mg tablet 5 mg PO DAILY prednisone 10 mg tablet See Taper PO DAILY Taper: Prednisone Taper 40 mg WITH BREAKFAST for 5 Days 20 mg WITH BREAKFAST for 5 Days 10 mg WITH BREAKFAST for 5 Days Rx Instructions: SEE TAPER orphenadrine citrate 100 mg tablet extended release 100 mg PO BID Primary Care Provider: Allie Stanton Referrals: Allie Stanton MD [Primary Care Provider] - Print Language: Mongolian Disposition Disposition: Acute Care Hospital [facility] What to do if you have Problems For any increased pain, shortness of breath, bleeding, nausea or vomiting, chestpain, or any unexpected problems, contact your Primary Care Provider. Call [facility] ([phone]) or report to the closest Emergency Room. Call 911 if necessary. 03/07/25 1514 <Electronically signed by Valeria Henry DO> Cosigner Signature (if applicable): CC: Dr. Allie Stanton MD ~ Signed [facility] Work Phone: [phone] 181-196806-18-2025 Telephone encounter Note* Telephone Encounter - Allie Stanton MD - 03/07/2025 4:49 PM EDT I agree with the advice given Allie Stanton MD [facility]06-18-2025 Miscellaneous Notes* Telephone Encounter - Allie Stanton MD - 03/07/2025 4:49 PM EDT I agree with the advice given Allie Stanton MD * Telephone Encounter - Marlena Hampton RN - 03/07/2025 8:54 AM EDT Patient's daughter Deanna calls and states that patient's back pain has gotten worse. Patient cannot sit or lay down she has a lot of pain. Daughter reports that patient's bowels are not working correctly. Deanna asking about patient going to rehab for the back pain since patient has been having hard time walking due to pain. Advised Deanna that if patient's back pain is getting that severe then she needs to be evaluated in ER again. Hospital then can evaluate her for Rehab. Deanna voices understanding. Marlena Hampton RN documented in this [facility]Ad[facility]06-[facility] Discharge summary [facility] Medical Records Department [address] [place] [address] Emergency Department Summary 03/07/25 MR#: [id number] Acct: [id number] Name: LUCILLE THURMAN Rep #:[id number] : 1935 89 From: Valeria Henry DO PCP: Dr. Allie Stanton MD Status:AD M [facility] Location: [id number] [place] [address] History of Present Illness Chief Complaint: Back Detail of Chief Complaint: Back pain Informant: patient Narrative Narrative: Patient presents with back pain that started more than 2 weeks ago. She denies injury. She was seenin the emergency department 5 days ago and had a CT scan of her back and some basic labs and a urine. CT showed some degenerative changes especially at L4-5. Patient was treated with prednisone as well as Norflex as well as tramadol and Tylenol and not getting any relief. Today she could hardly getup and could not ambulate because of the pain. She denies fevers or chills or sweats. She denies loss of bowel or bladder function. At times she can describes pain rating down her right leg with numbness in her right foot. At rest her pain is a 5 out of 10 but with any movement or any attempted ambulation her pain is a 10 out of 10 [facility] Medical History Chronic kidney disease, stage 3b Acute diastolic (congestive) heart failure NSTEMI (non-ST elevated myocardial infarction) Anemia Diabetes Non-smoker Skin cancer Dehydration GERD (gastroesophageal reflux disease) Acute blood loss anemia Closed left hip fracture HTN (hypertension) Hypercholesteremia Type II diabetes mellitus Home Medications ?Medication ?Instructions ?Recorded ?Last Taken ?Type multivitamin with folic acid 400 1 tab PO DAILYCM abram min #30 tabs 02/11/15 03/02/25 Rx mcg tablet blood sugar diagnostic (True 10/04/24 Unknown History Metrix Glucose Test Strip) aspirin 81 mg tablet,delayed 81 mg PO BREAKFAST 30 day s #30 tabs 10/08/24 03/02/25 Rx release carvedilol 3.125 mg tablet 3.125 mg PO BID 30 days #18 0 tabs 10/12/24 03/02/25 Rx clopidogrel 75 mg tablet 75 mg PO DAILY 30 days #90 t abs 10/12/24 03/02/25 Rx empagliflozin 10 mg tablet 10 mg PO DAILY 30 days #90 tabs 10/12/24 03/02/25 Rx (Jardiance) nitroglycerin 0.4 mg sublingual 0.4 mg sublingual Q5-1 5M PRN chest 01/01/25 Unknown Rx tablet pain #20 tabs omeprazole 20 mg capsule,delayed 20 mg PO QODAY 03/02/25 History release furosemide 20 mg tablet 20 mg PO DAILY 03/03/2502/18 History isosorbide mononitrate 30 mg 30 mg PO DAILY awaiting m ail in 03/03/25 03/02/25 History tablet,extended release 24 hr RX, pt out of med losartan 100 mg tablet 100 mg PO DAILY 03/03/25 History amlodipine 5 mg tablet 5 mg PO DAILY 03/07/2503/06 History atorvastatin 80 mg tablet 80 mg PO QHS cholesterol 03/06/25 History orphenadrine citrate 100 mg 100 mg PO BID 03/07/25 History tablet,extended release prednisone 10 mg tablet See Taper PO DAILY 03/07/25 03/07/25 History Allergy/AdvReac Type Severity Reaction Status Date / Time metformin Allergy Hives Verified 03/07/25 09:51 morphine AdvReac Nausea Verified 03/07/25 09:51 oxycodone (Oxycodone) AdvReac Nausea Verified 03/07/25 09:51 Family History Sister Breast cancer Colon cancer Diabetes Uncle Heart disease Brother Kidney disease Surgical History History of appendectomy History of cholecystectomy History of hip replacement History of shoulder replacement S/P ORIF (open reduction internal fixation) fracture Social History household members: none current occupational status: retired Smoking Status: Never smoker alcohol intake: never substance use type: does not use ROS ROS ED Review of Systems ROS Unobtainable: other Constitutional Constitutional ED: Reports lethargy; Denies chills, fever(s), sweats or weight loss Eyes Eyes: Denies blurry vision, change in vision or diplopia ENT ENT ED: Denies rhinorrhea or sore throat Cardiovascular Cardiovascular: Denies chest pain, orthopnea or racing heartbeat Respiratory/Chest Respiratory/Chest: Denies cough, dyspnea, dyspnea on exertion, orthopnea or sputum Gastrointestinal Gastrointestinal: Denies abdominal pain, diarrhea, nausea or vomiting Genitourinary Genitourinary ED: Denies dysuria, hematuria or urinary frequency Musculoskeletal Musculoskeletal: Reports back pain; Denies arthralgias, myalgias or neck pain Integumentary Denies abscess, Abrasions or rash Neurologic Neurologic: Denies headache(s) or weakness Psychiatric Psychiatric: Denies anxiety, depression or suicidal thoughts Endocrine Endocrinology: Denies polydipsia, polyphagia or polyuria Hematologic/Lymphatic Hematologic/Lymphatic: Denies easy bleeding, easy bruising or lymphadenopathy Allergic/Immunologic Allergic/Immunologic ED: Denies mouth swelling, tongue swelling or urticaria EXAM Physical Exam Const Vital Signs: 03/07/25 09:51 Temperature 97.2 F L Temperature Source Temporal Pulse Rate 66 Respiratory Rate 14 Blood Pressure 127/85 H Blood Pressure Mean 99 Pulse Ox 98 Oxygen Delivery Method Room Air Positive well nourished and well developed General Appearance ED: well developed and NAD HEENT Reports TM's clear and moist mucous membranes normocephalic and atraumatic; Negative for trauma or tenderness Tympanic Membrane ED: Yes TM's clear Eyes PERRL and EOMs intact bilaterally General Eye ED: Negative for pale conjunctiva or scleral icterus Neck no lymphadenopathy, supple and no JVD General: Negative for tenderness Chest Wall inspection of chest normal and palpation of chest normal Chest: Negative for tenderness Resp normal respiratory effort and clear to auscultation bilaterally Effort and Inspection: Negative for respiratory distress or pain with movement Auscultation: Negative for rhonchi, wheezes or diminished lung sounds Cardio regular rate, regular rhythm, S1 normal heart sound, S2 normal heart sound and no murmurs Peripheral Pulses: pulses 2+ throughout GI normal to inspection, nondistended, normoactive bowel sounds, soft to palpation,non-tender, non-distended and no masses Back/Spine no CVA tenderness; Negative for no thoracic nor lumbar tenderness Back/Spine Narrative: Mild diffuse tenderness over the lumbar spine and lumbar paraspinal musculature bilaterally. No erythema or warmth noted. No skin infections noted. Positive straight leg raises while supine with right and left lower extremities at about 30 degrees. Deep tendon reflexes plus 1 out of 4 bilaterally at the patella andAchilles. She has normal L5 extension. Normal sensation to light touch. Extremity normal to inspection General Extremety ED: Negative for edema General Extremity: Negative for edema Neuro oriented x3, CN's II-XII intact bilaterally, no sensory deficits noted and gait normal Sensorium / Orientation: awake, alert, oriented to person, oriented to place andoriented to time Motor Exam: strength 5/5 throughout and strength abnormal Psych mental status grossly normal Skin no rashes or lesions noted and no wounds MDM MDM MDM Narrative Medical decision making narrative: Patient presents with ongoing back pain x 2 weeks. Severe pain with movement and ambulation. No acute signs or symptoms of cauda equina on exam. Suspect possibly radiculopathy. Patient's had a CT scan that showed some degenerative changes especially L4-5. Patient will be medicated with half a milligram of Dilaudid IV and some Zofran. Will obtain basic labs. Patient will require admission for pain control and possibly further imaging such as MRI to evaluate further. Lab Data Attestation: I reviewed the patient's lab results. Labs: Laboratory Results - last 24 hr 03/07/25 10:35 WBC 11.3 H RBC 3.48 L Hgb 10.2 L Hct 31.0 L MCV 89.1 MCH 29.3 MCHC 32.9 RDW Std Deviation 42.3 RDW Coeff of Najma 13.0 Plt Count 291 MPV 8.9 Immature Gran % (Auto) 0.600 Neut % (Auto) 86.6 H Lymph % (Auto) 6.9 L Anderson % (Auto) 5.2 Eos % (Auto) 0.3 Baso % (Auto) 0.4 Absolute Neuts (auto) 9.8 H Absolute Lymphs (auto) 0.78 L Nucleated RBC % 0 Discharge Plan Triage Chief Complaint: Back ED Provider: Valeria Henry Dx/Rx/DC Orders Clinical Impression: Back pain, Difficulty in walking, Acute lumbar radiculopathy Prescriptions: No Action carvedilol 3.125 mg tablet 3.125 mg PO BID 30 Days Qty: 180 3RF Jardiance 10 mg tablet 10 mg PO DAILY 30 Days Qty: 90 3RF clopidogrel 75 mg tablet 75 mg PO DAILY 30 Days Qty: 90 3RF Rx Instructions: Discontinue if platelet count drops less than 50,000 or hemoglobin less than 8 g% omeprazole 20 mg capsule,delayed release(DR/EC) 20 mg PO QODAY nitroglycerin 0.4 mg tablet, sublingual 0.4 mg sublingual Q5-15M PRN (Reason: chest pain) Qty: 20 3RF Rx Instructions: do not exceed 3 doses per episode multivitamin with folic acid 1 TABLET tablet 1 tab PO DAILYCM Qty: 30 0RF Patient Comments: supplement (DME) True Metrix Glucose Test Strip Strip MISCELLANEOUS DAILY aspirin 81 mg Tablet,Delayed Release (Dr/Ec) 81 mg PO BREAKFAST 30 Days Qty: 30 4RF furosemide 20 mg tablet 20 mg PO DAILY isosorbide mononitrate 30 mg tablet extended release 24 hr 30 mg PO DAILY losartan 100 mg tablet 100 mg PO DAILY atorvastatin 80 mg tablet 80 mg PO QHS amlodipine 5 mg tablet 5 mg PO DAILY prednisone 10 mg tablet See Taper PO DAILY Taper: Prednisone Taper 40 mg WITH BREAKFAST for 5 Days 20 mg WITH BREAKFAST for 5 Days 10 mg WITH BREAKFAST for 5 Days Rx Instructions: SEE TAPER orphenadrine citrate 100 mg tablet extended release 100 mg PO BID Primary Care Provider: Allie Stanton Referrals: Allie Stanton MD [Primary Care Provider] - Print Language: Mongolian Disposition Disposition: Acute Care Hospital [facility] What to do if you have Problems For any increased pain, shortness of breath, bleeding, nausea or vomiting, chestpain, or any unexpected problems, contact your Primary Care Provider. Call [facility] ([phone]) or report tothe closest Emergency Room. Call 911 if necessary. 03/07/25 1516 Cosigner Signature (if applicable): CC: Dr. Allie Stanton MD ~ Signed [facility]06-18-2025 Telephone encounter Note* Telephone Encounter - Marlena Hampton RN - 03/07/2025 8:54 AM EDT Patient's daughter Deanna calls and states that patient's back pain has gotten worse. Patient cannot sit or lay down she has a lot of pain. Daughter reports that patient's bowels are not working correctly. Deanna asking about patient going to rehab for the back pain since patient has been having hard time walking due to pain. Advised Deanna that if patient's back pain is getting that severe then she needs to be evaluated in ER again. Hospital then can evaluate her for Rehab. Deanna voices understanding. Marlena Hampton RN [facility]06-16-2025 History of Present illness Narrative* Allie Stanton MD - 03/05/2025 5:00 PM EDT Images from the original note were not included. Chief Complaint Patient presents with: Back Pain: lower HPI Lucille Thurman is a 89 year old female who presents here today for back pain. Here with her son in law Michael and daughter Veronica. Veronica lives with her. Deanna, other daughter isSPENCER. Pt c/o lower back pain x 2 weeks, thinks she did too much as she was in process of moving. Worseneda week ago causing difficulty walking. Was using heat but that didn't help. Has not tried ice. She had an OTC pain patch on but it didn't help. States that if she sits too long she has tingling in the legs which resolves with taking a few steps. Pain is worse getting in and out of bed and going from sitting to standing. Pain with walking. Some trouble getting comfortable when laying down due to pain. Pain today is 9/10, achy, x 2 weeks constant. Denies any injury to the back. Went to [facility] ER on 03/03/25 and advised to take Tylenol and given Tramadol 50 mg 1 pill every 6 hoursprn. She didn't feel that the Tramadol or Tylenol are helping. She was given a muscle relaxant while in ER and that helped some. Past medical history, appointments, medications, allergies reviewed. 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 Dx: Type 2 DM - Controlled E11.9 Insulin: No losartan (COZAAR) 100 mg tablet Take 100 mg by mouth once daily. isosorbide mononitrate ER (IMDUR) 30 mg 24 hr tablet Take 30 mg by mouth once daily. furosemide (LASIX) 20 mg tablet Take 1 tablet by mouth once daily. omeprazole (PRILOSEC) 20 mg capsule take 1 capsule by mouth every other day 1/2 HOUR BEFORE BREAKFAST amLODIPine (NORVASC) 5 mg tablet Take 1 tablet by mouth once daily. carvedilol (COREG) 3.125 mg tablet Take 3.125 mg by mouth two times a day with meals. clopidogrel (PLAVIX) 75 mg tablet Take 75 mg by mouth once daily. JARDIANCE 10 mg tablet Take 10 mg by mouth daily with breakfast. aspirin, enteric coated (ASPIRIN, ENTERIC COATED) 81 mg EC tablet Take 81 mg by mouth once daily. atorvastatin (LIPITOR) 80 mg tablet Take 1 tablet by mouth daily at bedtime. For cholesterol. povidone, PF, (IVIZIA, PF,) 0.5 % drop Use 1 Drop in eyes three times a day. blood sugar diagnostic (BLOOD GLUCOSE TEST) test strip Test blood sugar(s) 1 times daily. Dx: E11.9. Insulin: No, Brand [facility] (MULTIVITAMIN AND MINERAL ORAL) Take 1 tablet by mouth once daily. lancets(FREESTYLE LANCETS) use daily blood glucose control high&low(FREESTYLE CONTROL SOLN) use as directed No current facility-administered medications on file prior to visit. Social History Social History Tobacco Use Smoking status: Never Smokeless tobacco: Never Vaping Use Vaping status: Never Used Substance Use Topics Alcohol use: No Drug use: No EXAM: BP 120/72 Pulse 63 Resp 14 Wt 69.9 kg (154 lb 1.6 oz) SpO2 96% BMI 27.30 kg/m General Appearance: Well appearing, alert, in no acute distress, well-hydrated, well nourished.. Back:tender midline lower lumbar paulina and left SI joint Lungs: Lungs clear to auscultation. No wheezing, rhonchi, rales.. Heart: RRR without murmur, gallop, or rubs. No ectopy. Health Maintenance List DTaP,Tdap,Td Vaccine(1 - Tdap) Never done RSV Vaccine(1 - 1-dose 75+ series) Never done Diabetic Foot Exam due on 11/27/2022 Bone Density Screening due on 07/23/2023 Covid-19 Vaccine( season) due on 07/28/2025 HbA1C due on 07/26/2025 Urine Albumin:Creatinine Ratio due on 07/27/2025 Dilated Retinal Exam due on 09/19/2025 LDL Cholesterol due on 01/23/2026 Depression Screening due on 01/29/2026 Anxiety Screening due on 01/29/2026 Influenza Vaccine Completed Advance Directive Discussion Completed Medicare Advantage Annual Wellness Visit Completed Shingrix Vaccine Completed Pneumococcal Vaccine: 50+ Completed Data reviewed [facility] ER report 03/03/25 in Scanned documents ASSESSMENT/PLAN: 1. Stage 3b chronic kidney disease (HCC) - ICD9: 585.3, ICD10: N18.32 (primary diagnosis) - eGFR: 42 Stable - Monitor; avoid NSAID 2. Acute midline low back pain without sciatica - ICD9: 724.2, ICD10: M54.50\ - PREDNISONE 10 MG TABLET - ORPHENADRINE CITRATE ER 100 MG TABLET,EXTENDED RELEASE Call if not improving Follow up prn Medical Decision Making: Problems: Low: Acute, uncomplicated illness or injury Data: Unique source(s) for external note(s) reviewed: 1 Unique test result(s) reviewed: 1 Risk: Moderate: Drug management Medical Decision Making Level: 3 - Low Allie Stanton MD The documentation for this note was completed by Jenifer Leon MA acting as scribe for Allie Stanton MD. March 05, 2025 4:38 PM. Jenifer Leon MA documented in this encounterAd[facility]06-[facility] NoteHNO ID: [id number] Author: ALLIE STANTON MD Service: ? Author Type: Physician Type: Progress Notes Filed: 03/05/2025 18:46 Note Text: Chief Complaint Patient presents with: Back Pain: lower HPI Lucille Thurman is a 89 year old female who presents here today for back pain. Here with her son in law Michael and daughter Veronica. Veronica lives with her. Deanna, other daughter is SPENCER. Pt c/o lower back pain x 2 weeks, thinks she did too much as she was in process of moving. Worsened a week ago causing difficulty walking. Was using heat but that didn't help. Has not tried ice. She had an OTC pain patch on but it didn't help. States that if she sits too long she has tingling in the legs which resolves with taking a few steps. Pain is worse getting in and out of bed and going from sitting to standing. Pain with walking. Some trouble getting comfortable when laying down due to pain. Pain today is 9/10, achy, x 2 weeks constant. Denies any injury to the back. Went to [facility] ER on 03/03/25 and advised to take Tylenol and given Tramadol 50 mg 1 pill every 6 hours prn. She didn't feel that the Tramadol or Tylenol are helping. She was given a muscle relaxant while in ER and that helped some. Past medical history, appointments, medications, allergies reviewed. 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 Dx: Type 2 DM - Controlled E11.9 Insulin: No losartan (COZAAR) 100 mg tablet Take 100 mg by mouth once daily. isosorbide mononitrate ER (IMDUR) 30 mg 24 hr tablet Take 30 mg by mouth once daily. furosemide (LASIX) 20 mg tablet Take 1 tablet by mouth once daily. omeprazole (PRILOSEC) 20 mg capsule take 1 capsule by mouth every other day 1/2 HOUR BEFORE BREAKFAST amLODIPine (NORVASC) 5 mg tablet Take 1 tablet by mouth once daily. carvedilol (COREG) 3.125 mg tablet Take 3.125 mg by mouth two times a day with meals. clopidogrel (PLAVIX) 75 mg tablet Take 75 mg by mouth once daily. JARDIANCE 10 mg tablet Take 10 mg by mouth daily with breakfast. aspirin, enteric coated (ASPIRIN, ENTERIC COATED) 81 mg EC tablet Take 81 mg by mouth once daily. atorvastatin (LIPITOR) 80 mg tablet Take 1 tablet by mouth daily at bedtime. For cholesterol. povidone, PF, (IVIZIA, PF,) 0.5 % drop Use 1 Drop in eyes three times a day. blood sugar diagnostic (BLOOD GLUCOSE TEST) test strip Test blood sugar(s) 1 times daily. Dx: E11.9. Insulin: No, Brand covered by insurance [employer],TH W-CA,FE,OTH MIN (MULTIVITAMIN AND MINERAL ORAL) Pepito (more content not included)...[facility]06-14-2025 Discharge summary [facility] Medical Records Department [address] [place] [address] Emergency Department Summary 03/03/25 MR#: [id number] Acct: [id number] Name: LUCILLE THURMAN Rep #:[id number] : 1935 89 From: Julio Pickens MD PCP: Dr. Allie Stanton MD Status:RE G ER Location: ED HPI History of Present Illness Chief Complaint: Back Narrative Narrative: 89-year-old female presents with her daughter and son-in-law because of low backpain that she has had for weeks. They states that recently she moved and is nowliving independently with a relative. She states that she is having low back pain intermittently for the last few weeks. Over the last few days, it is worseespecially at nighttime. She is taking Tylenol without relief. She denies any feversor chills, no nausea or vomiting. Pain radiates down to her left foot and is mainly on the left side and in her low back. No recent falls. No loss of bowel or bladder but she does states she has urinary frequency. She presentsbecause of the increased pain in her low back radiating down to her left foot that is worse with walking and movement. [facility] Medical History Chronic kidney disease, stage 3b Acute diastolic (congestive) heart failure NSTEMI (non-ST elevated myocardial infarction) Anemia Diabetes Non-smoker Skin cancer Dehydration GERD (gastroesophageal reflux disease) Acute blood loss anemia Closed left hip fracture HTN (hypertension) Hypercholesteremia Type II diabetes mellitus Home Medications ?Medication ?Instructions ?Recorded ?Last Taken ?Type multivitamin with folic acid 400 1 tab PO DAILYCM abram min #30 tabs 02/11/15 03/02/25 Rx mcg tablet blood sugar diagnostic (True 10/04/24 Unknown History Metrix Glucose Test Strip) aspirin 81 mg tablet,delayed 81 mg PO BREAKFAST 30 day s #30 tabs 10/08/24 03/02/25 Rx release atorvastatin 40 mg tablet 40 mg PO QHS #90 tabs 03/02/25 Rx carvedilol 3.125 mg tablet 3.125 mg PO BID 30 days #18 0 tabs 10/12/24 03/02/25 Rx clopidogrel 75 mg tablet 75 mg PO DAILY 30 days #90 t abs 10/12/24 03/02/25 Rx empagliflozin 10 mg tablet 10 mg PO DAILY 30 days #90 tabs 10/12/24 03/02/25 Rx (Jardiance) nitroglycerin 0.4 mg sublingual 0.4 mg sublingual Q5-1 5M PRN chest 01/01/25 Unknown Rx tablet pain #20 tabs omeprazole 20 mg capsule,delayed 20 mg PO QODAY 03/02/25 History release amlodipine 10 mg tablet 10 mg PO DAILY 03/03/2502/18 History furosemide 20 mg tablet 20 mg PO DAILY 03/03/2502/18 History isosorbide mononitrate 30 mg 30 mg PO DAILY awaiting m ail in 03/03/25 03/02/25 History tablet,extended release 24 hr RX, pt out of med losartan 100 mg tablet 100 mg PO DAILY 03/03/25 History tramadol 50 mg tablet 50 mg PO Q6H PRN pain 3 days #12 03/03/25 Unknown Rx tabs Allergy/AdvReac Type Severity Reaction Status Date / Time metformin Allergy Hives Verified 03/03/25 06:54 morphine AdvReac Nausea Verified 03/03/25 06:54 oxycodone (Oxycodone) AdvReac Nausea Verified 03/03/25 06:54 Family History Sister Breast cancer Colon cancer [...] not use ROS ROS ED ROS Narrative Review of systems positive for low back pain, initially midline but now more left-sided with radiation to left foot. No fevers or chills, no nausea or vomiting. No loss of bowel or bladder. No saddleanesthesia. Worse with movement and walking. EXAM Physical Exam Narrative Exam Narrative: Afebrile. Vital signs noted. Nontoxic-appearing. Cardiovascular examination regular rate and rhythm. Lungs are clear to auscultation bilaterally. Abdomen is soft, nontender, with positive bowel sounds. No vertebral point tenderness or bony step-off of the lumbar spine. Mild tenderness to palpation left sciaticnotch. Neuro vastly intact bilateral lower extremities with patellar DTRs equaland symmetric. EHL intact bilaterally. Positive pain in the low back with raising of left leg but no cross symptoms. Const Vital Signs: 03/03/25 06:54 03/03/25 06:58 Temperature 98.0 F Temperature Source Oral Pulse Rate 88 Respiratory Rate 18 Respiratory Effort Normal Non-Labored Respiratory Pattern Normal Blood Pressure 172/73 H Blood Pressure Mean 106 Pulse Ox 96 Oxygen Delivery Method Room Air MDM MDM MDM Narrative Medical decision making narrative: Differential diagnosis includes but not limited to spinal stenosis versus sciatica. While she has urinary frequency, she may have a UTI. I have low suspicion clinically for cauda equina syndrome as she has no red flag symptoms. I discussed with them the use of analgesics. She states she has historyof chronic kidney disease so does not want to take an NSAID. I discussed with her narcotic pain medication and she declined. It was agreed upon through shared decision making that she would like to try 1 tramadol 50 mg orally. Urinalysis will be obtained to rule out infection. CT imaging of the lumbar spine will be obtained to help rule out fracture. I reviewed her urinalysis and it is negative for infection with 0 WBCs and 0 bacteria. I do not feel antibiotics are indicated. I reviewed the radiology report of the CT of the lumbar spine and thereis multilevel degenerative disc disease. No evidence of an acute fracture. Upon repeat examination,she statesthat she feels unchanged. Her daughter inquired about a muscle relaxer. I we will give her a one-time dose. It was decided that instead of Valium that she will be given 1 Norflex here. I will write her prescription for tramadol which she can alternate between this and Tylenol. I discussedwith the patient and her family the possibility of observation or admission for PT OT eval and possible placement in rehab but she declined. She was able to ambulate with a walker here and her familystates that they have a walker at home which she can use. She will follow-up with her primary care provider. Return instructions tot emergency department were reviewed. Disposition is discharged home in stable condition. History & Record Review Discussion w/independent historian: Patient and Family Lab Data Attestation: I reviewed the patient's lab results. Labs: Laboratory Results - last 24 hr 03/03/25 07:30 Urine Color Yellow Urine Clarity Clear Urine pH 7.0 Ur Specific [place] 1.005 Urine Protein 30 H Urine Glucose (UA) 250 H Urine Ketones Negative Urine Occult Blood 10 H Urine Nitrite Negative Urine Bilirubin Negative Urine Urobilinogen Normal Ur Leukocyte Esterase Negative Urine RBC 0 SEEN Urine WBC 0 SEEN Ur Squamous Epith Cells 0 SEEN Urine Bacteria 0 SEEN Urine Mucus 0 SEEN Radiography Diagnostic Testing: Clinical Impression(s) from Imaging Studies Lumbar Spine CT 03/03/25 07:17 IMPRESSION: No acute process. Multilevel degenerative disc disease, endplate spondylosis, fairly well rib AP alignment Reading Location: [facility] [place] Discharge Plan Triage Chief Complaint: Back ED Provider: Julio Pickens Dx/Rx/DC Orders Clinical Impression: Back pain, Left lumbar radiculopathy Instructions: ED Back Pain (Acute or Chronic), ED Sciatica Prescriptions: New tramadol 50 mg tablet 50 mg PO Q6H PRN (Reason: pain) 3 Days Qty: 12 0RF No Action atorvastatin 40 mg tablet 40 mg PO QHS Qty: 90 3RF carvedilol 3.125 mg tablet 3.125 mg PO BID 30 Days Qty: 180 3RF Jardiance 10 mg tablet 10 mg PO DAILY 30 Days Qty: 90 3RF clopidogrel 75 mg tablet 75 mg PO DAILY 30 Days Qty: 90 3RF Rx Instructions: Discontinue if platelet count drops less than 50,000 or hemoglobin less than 8 g% omeprazole 20 mg capsule,delayed release(DR/EC) 20 mg PO QODAY nitroglycerin 0.4 mg tablet, sublingual 0.4 mg sublingual Q5-15M PRN (Reason: chest pain) Qty: 20 3RF Rx Instructions: do not exceed 3 doses per episode multivitamin with folic acid 1 TABLET tablet 1 tab PO DAILYCM Qty: 30 0RF Patient Comments: supplement (DME) True Metrix Glucose Test Strip Strip MISCELLANEOUS DAILY aspirin 81 mg Tablet,Delayed Release (Dr/Ec) 81 mg PO BREAKFAST 30 Days Qty: 30 4RF furosemide 20 mg tablet 20 mg PO DAILY isosorbide mononitrate 30 mg tablet extended release 24 hr 30 mg PO DAILY amlodipine 10 mg tablet 10 mg PO DAILY losartan 100 mg tablet 100 mg PO DAILY Primary Care Provider: Allie Stanton Referrals: Treva Sandoval, SPANISH TRANSLATOR-C [Non-Staff] - Activity Restrictions/Additional Instructions: Use a walker to help you ambulate. Alternate between Tylenol and tramadol for your back pain. Follow-up with your primary care provider. Return with fever, inability to perform your activities of daily living, new or worsening symptoms. Print Language: Mongolian Disposition Disposition: Home, Self Care What to do if you have Problems For any increased pain, shortness of breath, bleeding, nausea or vomiting, chestpain, or any unexpected problems, contact your Primary Care Provider. Call [facility] ([phone]) or report tothe closest Emergency Room. Call 911 if necessary. 03/03/25828 Cosigner Signature (if applicable): CC: Dr. Allie Stanton MD ~ Signed [facility]06-14-2025 Radiology Diagnostic study note [facility] Imaging Services [address] [place], [place] [address] Spine Lumbar without Contrast MR#: [id number] Acct: [id number] Name: LUCILLE THURMAN Rep #: [id number] : 1935 F 89 From: Pet er Peer DO PCP: Dr. Allie Stanton MD Status: RE G ER Study:Spine Lumbar without Contrast Date of E xam: 03/03/25 Exam# [id number] Ordering Dr: Julio Pickens MD PROCEDURE: SPINE LUMBAR WITHOUT CONTRAST 03/03/2025 REASON FOR EXAM: PAIN TECHNIQUE: SPINE LUMBAR WITHOUT CONTRAST Coronal and Sagittal reconstruction series were provided. One or more dose reduction techniques were used (e.g., Automated exposure control, adjustment of the mA and/or kV according to patient size, use of iterative reconstruction technique RADIATION DOSE SUMMARY: CTDlvol: 16.31 MGy DLP: 588.18 mGycm FINDINGS: Vertebrae: Normal height. Multilevel loss of disc height endplate spondylosis. Degenerative disc disease levels vacuum disc disease at L4-L5 with endplate disc cirrhosis. Fairly well preserved AP alignment. Alignment: Mild right convex scoliosis No bony encroachment on the central canal or neural foramina. Facet joint arthrosis CT/Spine Lumbar without Contrast IMPRESSION: No acute process. Multilevel degenerative disc disease, endplate spondylosis, fairly well rib AP alignment [facility] CC: Dr. Julio Pickens MD; Dr. Allie Stanton MD ~ Clearance Center Manager: Signed [facility]06-05-2025 NoteHNO ID: [id number] Author: CATHY DUGAN RN Service: ? Author [...] - Bi-Weekly Outreach (Recurring) Disposition Based on rn telephonic, the following disposition is advised: No action needed Cathy Dugan RN February 22, 2025 11:37 [facility]06-05-2025 History of Present illness Narrative* Cathy Dugan RN - 02/22/2025 11:37 AM EDT Images from the original note were not [...] - Bi-Weekly Outreach (Recurring) Disposition Based on rn telephonic, the following disposition is advised: No action needed Cathy Dugan RN February 22, 2025 11:37 AM documented in this encounterAdams [facility]06-05-20[facility] NotePatient Outreach ([facility]) LUCILLE THURMAN ([id number]) 1935 F Date Time Provider Department 02/22/25 CATHY DUGAN [facility] During your visit today, we recorded the [...] - Bi-Weekly Outreach (Recurring) Disposition Based on rn telephonic, the following disposition is advised: No action [...] 10/19/2014 Arteriosclerosis of both (more content not included)...[facility]05-22-2025 NoteHNO ID: [id number] Author: CATHY DUGAN, RN Service: ? Author [...] were you homeless or living in a assisted (including now)?: No Transportation Needs In the [...] Month 1: Review Individu (more content not included)...[facility]05-22-2025 NotePatient Outreach ([facility]) LUCILLE THURMAN ([id number]) 1935 F Date Time Provider Department 02/08/25 CATHY DUGAN During your visit today, we recorded the following information about you: Cathy Dugan, RN 02/08/2025 10:39 AM Signed [facility] Telephonic Outreach Provider Action/FYI [...] Medicare Wellness visit addressed 05/11/2025 02/08/2025 Cathy Dugan, RN Complete/Scheduled Assessments CDM Assessment Medications: Do [...] were you homeless or living in a assisted (including now)?: No Transportation Needs In the [...] ADLs, Fall Risk, SDOH (more content not included)...[facility]05-12-2025 Instructions* Patient Instructions* Imtiaz Hodge APRN.CNP - 01/29/2025 9:24 AM [...] - I will refer you to a assistant operator at [facility] in [place] to evaluate and possibly remove the spot. Follow-up: - Your next blood work and kidney function check will be in 6 months. - A referral has been placed for dermatology at [facility]. Please schedule an appointment withthem. If you have any new or worsening symptoms, please contact our office. documented in this encounterAdams County Regional Medical Center05-12-2025 History of Present illness Narrative* Imtiaz Hodge APRN.OCEAN FREIGHT MANAGER - 01/29/2025 9:00 AM EDT Images from the original note were not [...] foot paresthesia described as walking on needles, primarilyoccurring when transitioning from sitting to standing or [...] and glimepiride 1 mg. She was also takingActos 15 mg, but her can feeder advised discontinuation due to potential renal effects. [...] aspirin, amlodipine, and losartan. She reports some confusionregarding her current losartan dosage, as she has [...] disease, without long-term current use of insulin ([facility]) (E11.22) Stage 3 chronic kidney disease, unspecified whether stage 3a or 3b CKD ([facility]) (N18.30) Hemoglobin A1c is 6.4%, which is [...] unspecified HF chronicity, unspecified heart failure type ([facility]) (I50.9) Currently managed with carvedilol, lisinopril, and [...] of infection. 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 - Referral to [facility] for further evaluation and possible biopsy. 5. Screening for depression (Z13.31) Encounter for screening examination for other mental health and behavioral disorders (Z13.39) No signs of depression or other mental health disorders reported. Patient remains independent with no significant cognitive decline noted. Imtiaz Hodge APRN.CNP RTO in 6 months, sooner if needed. This note was partly generated using [employer] voice recognition dictation and may contain some misspelled or inaccurate words missed on review. Recording using [employer] software for draft documentation of the visit was discussed with the patient/authorized marketing development representative; all questions welcomed and answered. Patient/authorized marketing development representative agreed to proceed documented in this encounterAdams County Regional Medical Center05-12-2025 NoteHNO ID: [id number] Author: IMTIAZ HODGE APRN.CNP Service: ? Author [...] also taking Actos 15 mg, but her can feeder advised discontinuation due to potential renal effects. [...] 16 Glucose 74 - (more content not included)...[facility]04-14-2025 Evaluation note* Diagnosis Onset Date Resolution Status Admit Date Coronary artery disease chronic A pril 2024 9:03am Diastolic dysfunction chronic Apr il 2024 9:03am Dyslipidemia chronic January 01, 2025 9:03am HTN (hypertension) chronic January 01, 2025 9:03am Type II diabetes mellitus chronic January 01, 2025 9:03am [facility] Work Phone: 1(513) 497-355004-14-2025 Evaluation note* Diagnosis Onset Date Resolution Status Admit Date Coronary artery disease chronic A pril 2024 9:03am Diastolic dysfunction chronic Apr il 2024 9:03am Dyslipidemia chronic January 01, 2025 9:03am HTN (hypertension) chronic January 01, 2025 9:03am Type II diabetes mellitus chronic January 01, 2025 9:03am Back pain acute March 07 11:20am [facility] Work Phone: 1(719) 513-937204-01-2025 Telephone encounter Note* Telephone Encounter - Chelle Torre MA - 12/19/2024 11:41 AM EDT The following approved medication requests have been transmitted electronically. Requested Prescriptions Signed Prescriptions Disp Refills furosemide (LASIX) 40 mg tablet 30 tablet 2 Sig: Take 0.5 tablets by mouth once daily. Chelle Torre MA [facility]04-01-2025 Miscellaneous Notes* Telephone Encounter - Chelle Torre MA - 12/19/2024 11:41 AM EDT The following approved medication requests have been transmitted electronically. Requested Prescriptions Signed Prescriptions Disp Refills furosemide (LASIX) 40 mg tablet 30 tablet 2 Sig: Take 0.5 tablets by mouth once daily. Chelle Torre MA * Telephone Encounter - Allie Stanton MD - 12/19/2024 11:35 AM EDT OK to refill as ordered Allie Stanton MD * Telephone Encounter - Chelle Torre MA - 12/19/2024 11:09 AM EDT Will send in 40 mg dosage. Pt [...] Torre MA December 19, 2024 11:11 AM * Telephone Encounter - Chelle Torre MA - 12/18/2024 5:14 PM EDT Waiting to hear update regarding dosage of medication. Then route refill to Provider. Chelle Torre MA documented in this encounterAdams County [facility] Center04-01-2025 Telephone encounter Note * Telephone Encounter - Allie Stanton MD - 12/19/2024 11:35 AM EDT OK to refill as ordered Allie Stanton MD [facility]04-01-2025 Telephone encounter Note* Telephone Encounter - Chelle Torre MA - 12/19/2024 11:09 AM EDT Will send in 40 mg dosage. Pt [...] Torre MA December 19, 2024 11:11 AM [facility]03-31-2025 Telephone encounter Note* Telephone Encounter - Chelle Torre MA - 12/18/2024 7:53 PM EDT Pt sent [employer] message notifying her Rx was sent into the Pharmacy. The following approved medication requests have been transmitted electronically. Requested Prescriptions Signed Prescriptions Disp Refills glimepiride (AMARYL) 1 mg tablet 90 tablet 3 Sig: Take 1 tablet by mouth daily with breakfast. Authorizing Provider: ALLIE STANTON MA [facility]03-31-2025 Miscellaneous Notes* Telephone Encounter - Chelle Torre MA - 12/18/2024 7:53 PM EDT Pt sent [employer] message notifying her Rx was sent into the Pharmacy. The following approved medication requests have been transmitted electronically. Requested Prescriptions Signed Prescriptions Disp Refills glimepiride (AMARYL) 1 mg tablet 90 tablet 3 Sig: Take 1 tablet by mouth daily with breakfast. Authorizing Provider: ALLIE STANTON MA * Telephone Encounter - Allie Stanton MD - 12/18/2024 5:41 PM EDT OK to refill as ordered Allie Stanton MD * Telephone Encounter - Mau Erazo LPN - 12/18/2024 4:14 PM EDT Prescription Refill Information The patient has been [...] 18, 2024 4:16 PM documented in this encounterAdams County [facility] Center03-31-2025 Telephone encounter Note * Telephone Encounter - Allie Stanton MD - 12/18/2024 5:41 PM EDT OK to refill as ordered Allie Stanton MD [facility]03-31-2025 Telephone encounter Note* Telephone Encounter - Chelle Torre MA - 12/18/2024 5:14 PM EDT Waiting to hear update regarding dosage of medication. Then route refill to Provider. Chelle Torre MA [facility]03-31-2025 Telephone encounter Note* Telephone Encounter - Mau Erazo LPN - 12/18/2024 4:14 PM EDT Prescription Refill Information The patient has been [...] Erazo LPN December 18, 2024 4:16 PM [facility]02-27-[facility] Telephone encounter Note* Telephone Encounter - Allie Stanton MD - 11/16/2024 4:22 PM EST OK to refill as ordered Allie Stanton MD [facility]02-27-2025 Miscellaneous Notes* Telephone Encounter - Allie Stanton MD - 11/16/2024 4:22 PM EST OK to refill as ordered Allie Stanton MD * Telephone Encounter - Arnold Gottlieb LPN - 11/16/2024 2:48 PM EST Prescription Refill Information The patient has been [...] 16, 2024 2:49 PM documented in this encounterAdams County Regional [facility] Center02-27-2025 Telephone encounter Note * Telephone Encounter - Arnold Gottlieb LPN - 11/16/2024 2:48 PM EST Prescription Refill Information The patient has been [...] Gottlieb LPN November 16, 2024 2:49 PM [facility]02-06-2025 NoteHNO ID: [id number] Author: IZA JAMESON RN Service: ? Author Type: Registered Nurse Type: Progress Notes Filed: 10/26/2024 13:26 Note Text: Transitional Care Management (TCM) Follow-Up Note PCP Update / Actionable Items N/A - No specialty updates needed Patient Source: Ngk-bl-Rlxyclo (OON) Discharge Outreach Summary: Spoke with daughter Deanna - patient prefers due to [place] per last encounter. Doing well at home, [...] Iza Jameson RN October 26, 2024 1:24 [facility]02-06-2025 History of Present illness Narrative* Iza Jameson RN - 10/26/2024 1:21 PM EST Transitional Care Management (TCM) Follow-Up Note PCP Update / Actionable Items N/A - No specialty updates needed Patient Source: Eep-ji-Okbdsoc (OON) Discharge Outreach Summary: Spoke with daughter Deanna - patient prefers due to [place] per last encounter. Doingwell at home, denies any increased swelling or [...] 26, 2024 1:24 PM documented in this encounterAdams County Regional Medical Center02-06-2025 NotePatient Outreach ([facility]) LUCILLE THURMAN ([id number]) 1935 F Date Time Provider Department 10/26/24 IZA JAMESON During your visit today, we recorded the following information about you: Iza Jameson RN 10/26/2024 1:26 PM Signed Transitional Care Management (TCM) Follow-Up Note PCP Update / Actionable Items N/A - No specialty updates needed Patient Source: Ujm-rl-Zjetmer (OON) Discharge Outreach Summary: Spoke with kaity Huerta - patient prefers due to [place] per last encounter. Doing well at home, [...] by mouth once daily. - povidone, PF, (OSIELIZALEX, PF,) 0.5 % drop Use 1 Drop [...] [G56.00] 09/29/2013 03/22/2019 Gall bladder stones [K80.20] more content not included)...[facility]01-31-2025 Telephone encounter Note* Telephone Encounter - Chelle Torre MA - 10/20/2024 1:25 PM EST Call to pt and notified her this has been completed. Pt requesting this to be mailed to her at address on file (confirmed). Notified her this would be sent out to her. Chelle Torre MA [facility]01-31-2025 Miscellaneous Notes* Telephone Encounter - Chelle Torre MA - 10/20/2024 1:25 PM EST Call to pt and notified her this has been completed. Pt requesting this to be mailed to her at address on file (confirmed). Notified her this would be sent out to her. Chelle Torre MA * Telephone Encounter - Allie Stanton MD - 10/20/2024 11:42 AM EST Rx done Allie Stanton MD * Telephone Encounter - Chelle Torre MA - 10/20/2024 11:18 AM EST See request below. Call pt once complete and ask if pt wants to pick up man or have mailed to her. Chelle Torre MA * Telephone Encounter - Sheron Torres - 10/20/2024 11:11 AM EST Lucille is calling Allie Stanton MD today to request Orders (Handicap placbabatunde) Please call patient when created. Patient has been identified by name and birthdate. Duration of symptoms: N/A Person calling: self Call patient at: at home [phone] (home) [phone] (work) [phone] (cell) Was an appointment scheduled: No Closing statement: Sheron Yanez documented in this encounterAdams County [facility] Center01-31-2025 Telephone encounter Note * Telephone Encounter - Allie Stanton MD - 10/20/2024 11:42 AM EST Rx done Allie Stanton MD [facility] Work Phone: 1(844) 636-994901-31-2025 Telephone encounter Note* Telephone Encounter - Chelle Torre MA - 10/20/2024 11:18 AM EST See request below. Call pt once complete and ask if pt wants to pick up man or have mailed to her. Chelle Torre MA [facility]01-31-2025 Telephone encounter Note* Telephone Encounter - Sheron Torres - 10/20/2024 11:11 AM EST Lucille is calling Allie Stanton MD today to request Orders (Handicap placbabatunde) Please call patient when created. Patient has been identified by name and birthdate. Duration of symptoms: N/A Person calling: self Call patient at: at home [phone] (home) [phone] (work) [phone] (cell) Was an appointment scheduled: No Closing statement: Sheron Yanez [facility] Work Phone: 1(663) 833-249601-30-2025 NoteHNO ID: [id number] Author: CHINYERE PABON RN Service: ? Author Type: Registered Nurse Type: Progress Notes Filed: 10/19/2024 10:20 Note Text: Transitional Care Management (TCM) Follow-Up Note PCP Update / Actionable Items N/A - No specialty updates needed Patient Source: Zft-ea-Fvvfgby (OON) Discharge Outreach Summary: Pt reports she is feeling well. Denies any SOB , leg swelling. Taking lasix 1/2 every other day. Noted daughter reaching out to neph. locally for appt . Pt states she is [place] and prefers additional f/u calls be made to her daughter. Patient discharged from [facility] Discharge date: 10/08/24 Admitted for: SOB/ [...] Chinyere Pabon RN October 19, 2024 10:17 [facility]01-30-2025 History of Present illness Narrative* Chinyere Pabon RN - 10/19/2024 10:09 AM EST Transitional Care Management (TCM) Follow-Up Note PCP Update / Actionable Items N/A - No specialty updates needed Patient Source: Tye-rn-Glnwxyp (OON) Discharge Outreach Summary: Pt reports she is feeling well. Denies any SOB , leg swelling. Taking lasix 1/2 every other day. Noted daughter reaching out to neph. locally for appt . Pt states she is [place] and prefers additional f/u calls be made to her daughter. Patient discharged from [facility] Discharge date: 10/08/24 Admitted for: SOB/ [...] scheduling or changing your follow-up appointments? Patient alreadyhas an appointment scheduled Education Heart Failure Education [...] 19, 2024 10:17 AM documented in this encounterAdams County Regional [facility] Center01-30-2025 NotePatient Outreach (AMBCMG) LUCILLE THURMAN ([id number]) 1935 F Date Time Provider Department 10/19/24 CHINYERE PAOBN During your visit today, we recorded the following information about you: Chinyere Pabon RN 10/19/2024 10:20 AM Signed Transitional Care Management (TCM) Follow-Up Note PCP Update / Actionable Items N/A - No specialty updates needed Patient Source: Huh-ix-Xdjtemv (OON) Discharge Outreach Summary: Pt reports she is feeling well. Denies any SOB , leg swelling. Taking lasix 1/2 every other day. Noted daughter reaching out to neph. locally for appt . Pt states she is [place] and prefers additional f/u calls be made to her daughter. Patient discharged from [facility] Discharge date: 10/08/24 Admitted for: SOB/ [...] Gall bladder stones [K80 (more content not included)...[facility]01-27-2025 Telephone encounter Note* Telephone Encounter - Chelle Torre MA - 10/16/2024 8:50 AM EST Gave pt's Daughter Dr. Coates/Dr. Valente's phone number to contact there office to setup appt. If referral paperwork needed to contact office. Chelle Torre MA [facility]01-27-2025 Miscellaneous Notes* Telephone Encounter - Chelle Torre MA - 10/16/2024 8:50 AM EST Gave pt's Daughter Dr. Coates/Dr. Valente's phone number to contact there office to setup appt. If referral paperwork needed to contact office. Chelle Torre MA documented in this encounterAdams County Regional Medical Center01-23-2025 NoteHNO ID: [id number] Author: CHINYERE PABON RN Service: ? Author Type: Registered Nurse Type: Progress Notes Filed: 10/12/2024 10:10 Note Text: Transition Care Management (TCM) Initial Outreach PCP Update / Actionable Items HRTIC TCM Home Visit Referral Source of Stratification: [facility] Hospital Admission Status: Discharged Readmission Risk Score: n/a Patient's zip code: [address] Is zip code within program service area: No Patient meets program referral criteria: No Patient does not qualify for High Risk TCM Home Visit program due to: Patient's zip code is not located within program service area Readmission Risk Score does not meet criteria Disposition: Patient does not qualify for HRTIC, will provide TCM outreach follow-up for 30-days Patient Source: Nux-lh-Nyehvps (OON) Discharge Outreach Summary: Chart reviewed. Pt seen with PCP office for discharge follow up yesterday. TCM will continue to follow and attempt outreach next week. Patient discharged from [facility] Discharge date: 10/08/24 Admitted for: SOB/ Readmission Risk: n/a Value-Based Contract: Beryl BROTHERS Contact: Contact made with patient: N/A - Next outreach attempt scheduled for the next week. Chinyere Paobn RN October 12, 2024 10:10 [facility]01-23-2025 History of Present illness Narrative* Chinyere Pabon RN - 10/12/2024 9:59 AM EST Transition Care Management (TCM) Initial Outreach PCP Update / Actionable Items HRTIC TCM Home Visit Referral Source of Stratification: [facility] Hospital Admission Status: Discharged Readmission Risk Score: n/a Patient's zip code: [address] Is zip code within program service area: No Patient meets program referral criteria: No Patient does not qualify for High Risk TCM Home Visit program due to: Patient's zip code is not located within program service area Readmission Risk Score does not meet criteria Disposition: Patient does not qualify for HRTIC, will provide TCM outreach follow-up for 30-days Patient Source: Gxi-ti-Kiwxdyf (OON) Discharge Outreach Summary: Chart reviewed. Pt seen with PCP office for discharge follow up yesterday. TCM will continue to follow and attempt outreach next week. Patient discharged from [facility] Discharge date: 10/08/24 Admitted for: SOB/ Readmission Risk: n/a Value-Based Contract: Beryl BROTHERS Contact: Contact made with patient: N/A - Next outreach attempt scheduled for the next week. Chinyere Pabon RN October 12, 2024 10:10 AM documented in this encounterAdams County Regional Medical Center01-23-2025 NotePatient Outreach (AMBCMG) DENNY THURMANGRANT Park ([id number]) 1935 F Do not c* Date Time Provider Department 10/12/24 CHINYERE PABONG During your visit today, we recorded the following information about you: Chinyere Pabon RN 10/12/2024 10:10 AM Signed Transition Care Management (TCM) Initial Outreach PCP Update / Actionable Items HRTIC TCM Home Visit Referral Source of Stratification: [facility] Hospital Admission Status: Discharged Readmission Risk Score: n/a Patient's zip code: [address] Is zip code within program service area: No Patient meets program referral criteria: No Patient does not qualify for High Risk TCM Home Visit program due to: Patient's zip code is not located within program service area Readmission Risk Score does not meet criteria Disposition: Patient does not qualify for HRTIC, will provide TCM outreach follow-up for 30-days Patient Source: Pff-he-Rxknqds (OON) Discharge Outreach Summary: Chart reviewed. Pt seen with PCP office for discharge follow up yesterday. TCM will continue to follow and attempt outreach next week. Patient discharged from [facility] Discharge date: 10/08/24 Admitted for: SOB/ [...] Of Care [4074] Cmt: TCM / OON [facility] 10/08/24 Prescriptions as of 10/12/2024 - carvedilol [...] [M50.*09/29/2018 Encounter Status:Closed by CHINYERE PABON on 10/12/24[facility]01-[facility] Instructions* Patient Instructions* Treva Sandoval APRN.OCEAN FREIGHT MANAGER - 10/11/2024 2:14 PM EST Get repeat [...] increased shortness of breath, lower leg swelling, or3-5 lbs weight gain, may use Lasix 40 mg 1/2 tablet as needed in the morning. Follow up as scheduled or sooner pending test results. documented in this encounterAdams County Regional Medical Center01-22-2025 History of Present illness Narrative* Treva Sandoval APRN.CNP - 10/11/2024 2:00 PM EST This is a 89 year old female who presents today with: Patient presents with: Follow Up: 4 day Hospital follow up HISTORY OF PRESENT ILLNESS: Lucille Thurman is a 89 year old female. Patient presents with: Follow Up: 4 day Hospital follow up Daughters present at this appointment. HOSPITAL/ER FOLLOW UP: Reason for visit: SOB Which facility: [facility] Date of visit: 10/04/2024-10/08/2024 Diagnosis: Acute hypoxic respiratory failure due to acute on chronic HFpEF. 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 Bun 29, creatinine 1.21, glucose 138, hgckauxb16, BNP elevated at 496. Chest x-ray showing [...] from cardiorenal syndrome or concern that increased creatininecould be from recent aggressive diuresis. Will complete [...] Jardiance 10 mg. 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 Sensation grossly intact.. Latest Ref [facility] 10/10/2024 WBC 3.70 - 11.00 k/uL 7.31 [...] Abs Lymph 1.00 - 4.00 k/uL 1.06 Anderson% % 9.0 Abs Anderson <0.87 k/uL 0.66 Eosin% % 2.6 Abs [...] due to decreased kidney function. If she developsincreasing SOB or lower leg swelling may use [...] APRN.CNP This note was partially generated using [employer] voice recognition system. Note was reviewed for accuracy. There may be minor misspellings or grammar miscues with [employer] voice recognition. documented in this encounterAdams County Regional Medical Center01-22-2025 NoteHNO ID: [id number] Author: TREVA SANDOVAL APRN.CNP Service: ? 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 [facility]01-20-2025 Note* Addendum Note - Treva Sandoval APRN.OCEAN FREIGHT MANAGER - 10/09/2024 9:40 AM ESTAddended by: TREVA SANDOVAL on: 10/09/2024 09:40 AM Modules accepted: Orders [facility]01-20-2025 Telephone encounter Note* Telephone Encounter - Treva Sandoval APRN.CNP - 10/09/2024 9:40 AM EST Noted, CMP and CBC placed, RX for amlodipine sent to pharmacy. Thank you Treva Sandoval APRN.OCEAN FREIGHT MANAGER [facility]01-20-2025 Miscellaneous Notes* Addendum Note - Treva Sandoval APRN.CNP - 10/09/2024 9:40 AM ESTAddended by: TREVA SANDOVAL on: 10/09/2024 09:40 AM Modules accepted: Orders * Telephone Encounter - Treva Sandoval APRN.BERNARDO - 10/09/2024 9:40 AM EST Noted, CMP and CBC placed, RX for amlodipine sent to pharmacy. Thank you Treva Sandoval APRN.OCEAN FREIGHT MANAGER * Telephone Encounter - Arnold Gottlieb LPN - 10/09/2024 9:15 AM EST Talked to Pt son in law. Pt needs labs today and appointment on Weds. Pt also needs a Rx of amlodipine 5 mg sent to [facility]. Arnold Gottlieb LPN documented in this encounterAdams County Regional Medical Center01-20-2025 Telephone encounter Note * Telephone Encounter - Arnold Gottlieb LPN - 10/09/2024 9:15 AM EST Talked to Pt son in law. Pt needs labs today and appointment on Weds. Pt also needs a Rx of amlodipine 5 mg sent to [facility]. Arnold Gottlieb LPN [facility]01-19-2025 [facility] Medical Records Department [address] [place] [address] Discharge Summary 10/08/24 1019 MR#: [id number] Acct: [id number] Name: LUCILLE THURMAN Rep #: [id number] : 1935 89 From: Tone Bethea MD PCP: AMAURY Louise Status:ADM IN Location: [place] [address] Providers Date of Admission: 10/04/24 Date of Discharge: 10/08/24 Primary Care Physician: AMAURY Louise Consultations 10/05/24 10:47 Consult: Cardiology Routine Consulting Provider: Jonah Bashir Reason for Consult: NSTEMI EMERGENT Consult: No Notified: Yes Date Notified: 10/05/24 Time Notified: 10:47 Method of Notification: Text 10/07/24 09:08 Consult: Nephrology Routine Consulting Provider: Shanelle Daly Reason for Consult: NEELIMA on CKD, WILI EMERGENT Consult: No Notified: Yes Date Notified: 10/07/24 Time Notified: [...] down to 94% on room air. Chest x- ray individually reviewed and consistent with pulmonary edema. [...] Does not mention about wall motion abnormality. Airline Reservation Agent consulted. 10/06: Elevated D-dimer 0.89 but age-adjusted [...] went up to 1.8. Discussed with the can feeder. Renal ultrasound ordered. UA shows LE 25, [...] with PCP. Patient is discharged after the can feeder recommendation. DM-2 -Oral hypoglycemic agents held while inpatient. Accu-Chek before meals and at bedtime with Humalog sliding scale coverage and hypoglycemia protocol. -Glucose reasonably controlled 10/06: Glucose 142. 10/07: Glucoses controlled. 10/08: Glimepiride was held, patient can resume tomorrow lower dose 2 mg daily because of NEELIMA. Essential hypertension/hyperlipidemia -Continue home atorvastatin -Hold home lisin (more content not included)...[facility] 10-04-2024 Telephone encounter Note* Telephone Encounter - Thao Rivera RN - 10/04/2024 9:33 AM EST Triage Protocol Recommended: Call 911 now. Pt [...] prefers to sit, cannot lie down flat, speaksin phrases, mild retractions, audible wheezing, pulse 100 to 120. - SEVERE: Very SOB at rest, speaks in single words, struggling to breathe, sitting hunched forward,retractions, pulse > 120 Severe during call 5. RECURRENT SYMPTOM: Have you had difficulty breathing before? If Yes, ask: When was the last time? and What happened that time? Yes, worse now 6. CARDIAC HISTORY: Do you have any history of heart disease? (e.g., heart attack, angina, bypasssurgery, angioplasty) Yes, see history 7. LUNG HISTORY: [...] travel history, exposures) no Protocols used: Breathing Zivmrgsnne-OZKGY-VU [facility]01-15-2025 Miscellaneous Notes* Telephone Encounter - Thao Rivera RN - 10/04/2024 9:33 AM EST Triage Protocol Recommended: Call 911 now. Pt [...] prefers to sit, cannot lie down flat, speaksin phrases, mild retractions, audible wheezing, pulse 100 to 120. - SEVERE: Very SOB at rest, speaks in single words, struggling to breathe, sitting hunched forward,retractions, pulse > 120 Severe during call 5. RECURRENT SYMPTOM: Have you had difficulty breathing before? If Yes, ask: When was the last time? and What happened that time? Yes, worse now 6. CARDIAC HISTORY: Do you have any history of heart disease? (e.g., heart attack, angina, bypasssurgery, angioplasty) Yes, see history 7. LUNG HISTORY: [...] travel history, exposures) no Protocols used: Breathing Karmiwfrgr-TGOQO-YJ documented in this encounterAdams County Regional Medical Center12-30-2024 Telephone encounter Note * Telephone Encounter - Arnold Gottlieb LPN - 09/18/2024 11:01 AM EST Patient notified of update., verbalizes understanding of instructions. Pt stated she is not having any problems on the medication. Except the low diastolic. Advise Pt of taking 1/2 tabs. Pt stated she will try that and send updates on BP. Arnold Gottlieb LPN [facility]12-30-2024 Miscellaneous Notes* Telephone Encounter - Arnold Gottlieb LPN - 09/18/2024 11:01 AM EST Patient notified of update., verbalizes understanding of instructions. Pt stated she is not having any problems on the medication. Except the low diastolic. Advise Pt of taking 1/2 tabs. Pt stated she will try that and send updates on BP. Arnold Gottlieb LPN * Telephone Encounter - Treva Sandoval APRN.OCEAN FREIGHT MANAGER - 09/18/2024 10:27 AM EST Can you please call the patient back [...] tablet in the evening. Treva Sandoval APRN.BERNARDO * Telephone Encounter - Marlena Hampton RN - 09/18/2024 9:45 AM EST Patient calls with updated blood pressure readings since she started on metoprolol. Patient reports that on Wednesday (09/16) her blood pressure was 118/46. Yesterday (09/17) her bloodpressure at 1 pm was 145/53 and at 11 pm it was 141/52. Patient reports that she had went to exercise today and had gotten along fine. Patient reports thatwhen she got home she decided to pick up man sticks around her trailer. Patient states that she had to sit down after picking up stick. Please review and advise, Marlena Hampton RN documented in this encounterAdams County Regional Medical Center12-30-2024 Telephone encounter Note * Telephone Encounter - Treva Sandoval APRN.CNP - 09/18/2024 10:27 AM EST Can you please call the patient back [...] 1/2 tablet in the evening. Treva Sandoval APRN.CNP [facility]12-30-2024 Telephone encounter Note* Telephone Encounter - Marlena Hampton RN - 09/18/2024 9:45 AM EST Patient calls with updated blood pressure readings since she started on metoprolol. Patient reports that on Wednesday (09/16) her blood pressure was 118/46. Yesterday (09/17) her bloodpressure at 1 pm was 145/53 and at 11 pm it was 141/52. Patient reports that she had went to exercise today and had gotten along fine. Patient reports thatwhen she got home she decided to pick up man sticks around her trailer. Patient states that she had to sit down after picking up stick. Please review and advise, Marlena Hampton RN [facility]12-26-2024 Instructions* Patient Instructions* Treva Sandoval APRN.BERNARDO - 09/14/2024 11:46 AM EST Stop amlodipine, [...] next to [place] byrnes documented in this encounterAdams County Regional Medical Center12-26-2024 History of Present illness Narrative* Treva Sandoval APRN.BERNARDO - 09/14/2024 11:40 AM EST This is a 89 year old female who presents today with: Patient presents with: Follow Up: Blood pressure HISTORY OF PRESENT ILLNESS: Lucille Thurman is a 89 year old female. Patient presents with: Follow Up: Blood pressure Here in the office for blood pressure follow up. Earlier this month increased amlodipine 5 mg BID, still taking Lisinopril 40 mg daily. Checking BP at chxs451's-160/50-70's. 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 Treva Sandoval APRN.OCEAN FREIGHT MANAGER This note was partially generated using Dragon voice recognition system. Note was reviewed for accuracy. There may be minor misspellings or grammar miscues with [employer] voice recognition. documented in this encounterAdams County Regional Medical Center12-26-2024 NoteHNO ID: [id number] Author: TREVA SANDOVAL APRN.BERNARDO Service: ? Author Type: Nurse Practitioner Type: [...] Lisinopril 40 mg daily. Checking BP at brnx690's-160/50-70's. Has noticed increased lower leg swelling since [...] of fall Hyperlipidemia Inflammatory disease of breast halfway (current) use 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 halfway (current) use of oral hypoglycemic drugs Lumbar [...] and itching ENDOCRINE: Negative (more content not included)...[facility] 08-28-2024 Instructions* Patient Instructions* Treva Sandoval APRN.CNP - 08/28/2024 3:10 PM EST Increase Amlodipine 5 mg twice daily Continue with Lisinopril Monitor blood pressure at home, goal 130/80's or less Watch processed foods and salt in the diet Message or call the office in office 1-2 weeks with BP readings Follow as scheduled documented in this encounterAdams County Regional Medical Center12-09-2024 History of Present illness Narrative* Treva Sandoval APRN.CNP - 08/28/2024 3:00 PM EST This is a 89 year old female [...] of fall Hyperlipidemia Inflammatory disease of breast halfway (current) use 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 extermination inspector (current) use of oral hypoglycemic drugs Lumbar [...] APRN.BERNARDO This note was partially generated using [employer] voice recognition system. Note was reviewed for accuracy. There may be minor misspellings or grammar miscues with [employer] voice recognition. documented in this encounterAdams County Regional Medical Center12-09-2024 NoteHNO ID: [id number] Author: TREVA SANDOVAL APRN.CNP Service: ? Author [...] of fall Hyperlipidemia Inflammatory disease of breast halfway (current) use 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 extermination inspector (current) use of oral hypoglycemic drugs Lumbar [...] lesions, rash, and itching (more content not included)...[facility]11-08-2024 Note* Addendum Note - Treva Sandoval APRN.CNP - 07/28/2024 1:56 PM ESTAddended by: TREVA SANDOVAL on: 07/28/2024 01:56 PM Modules accepted: Orders [facility]11-08-2024 Miscellaneous Notes* Addendum Note - Treva Sandoval APRN.CNP - 07/28/2024 1:56 PM ESTAddended by: TREVA SANDOVAL on: 07/28/2024 01:56 PM Modules accepted: Orders documented in this encounterAdams County Regional Medical Center11-08-2024 Instructions* Patient Instructions* Treva Sandoval APRN.CNP - 07/28/2024 9:33 AM EST Get repeat [...] A1C came down 6.3! [facility] in [place], Dr. Vaughn at the [facility] and Dr. Machado with the [facility] Follow up in 1 month for blood pressure check and 6 months for normal follow up. documented in this encounterAdams County Regional Medical Center11-08-2024 History of Present illness Narrative* Treva Sandoval APRN.CNP - 07/28/2024 9:20 AM EST This is a 89 year old female [...] 2 mg daily. Checking sugars at home, 95- 120 fasting. Watching diet most of the time. [...] of fall Hyperlipidemia Inflammatory disease of breast halfway (current) use 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 extermination inspector (current) use of oral hypoglycemic drugs Lumbar [...] disease, without long-term current use of insulin ([facility]) - ICD9: 250.40, 585.3, ICD10: E11.22, N18.30 [...] effects were discussed and patient voices understanding. Terva Sandoval APRN.BERNARDO This note was partially generated using [employer] voice recognition system. Note was reviewed for accuracy. There may be minor misspellings or grammar miscues with [employer] voice recognition. documented in this encounterAdams County Regional Medical Center11-08-2024 NoteHNO ID: [id number] Author: TREVA SANDOVAL APRN.OCEAN FREIGHT MANAGER Service: ? Author Type: Nurse Practitioner Type: [...] of fall Hyperlipidemia Inflammatory disease of breast halfway (current) use 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 extermination inspector (current) use of oral hypoglycemic drugs Lumbar [...] pain and si (more content not included)... [facility]06-28-2024 Telephone encounter Note* Telephone Encounter - Imtiaz Hodge APRN.CNP - 03/17/2024 10:12 AM EDT The following approved medication requests have been transmitted electronically. Requested Prescriptions Pending Prescriptions Disp Refills blood sugar diagnostic (BLOOD GLUCOSE TEST) test strip 100 Strip 3 Sig: Test blood sugar(s) 1 times daily. Dx: E11.9. Insulin: No, Brand covered by insurance Imtiaz Hodge APRN.CNP [facility]06-28-2024 Miscellaneous Notes* Telephone Encounter - Imtiaz Hodge APRN.CNP - 03/17/2024 10:12 AM EDT The following approved medication requests have been transmitted electronically. Requested Prescriptions Pending Prescriptions Disp Refills blood sugar diagnostic (BLOOD GLUCOSE TEST) test strip 100 Strip 3 Sig: Test blood sugar(s) 1 times daily. Dx: E11.9. Insulin: No, Brand covered by insurance Imtiaz Hodge APRN.OCEAN FREIGHT MANAGER * Telephone Encounter - Shiela Cornelius RN - 03/17/2024 9:49 AM EDT The patient has been identified by name [...] 17, 2024 9:49 AM documented in this encounterAdams County Regional [facility] Center06-28-2024 Telephone encounter Note * Telephone Encounter - Shiela Cornelius RN - 03/17/2024 9:49 AM EDT The patient has been identified by name [...] Cornelius RN March 17, 2024 9:49 AM [facility]05-15-2024 Telephone encounter Note* Telephone Encounter - Imtiaz Hodge APRN.CNP - 02/02/2024 2:34 PM EDT The following approved medication requests have been transmitted electronically. Requested Prescriptions Pending Prescriptions Disp Refills omeprazole (PRILOSEC) 20 mg capsule 45 capsule 3 Sig: take 1 capsule by mouth every other day 1/2 HOUR BEFORE BREAKFAST Imtiaz Hodge APRN.CNP [facility]05-15-2024 Miscellaneous Notes* Telephone Encounter - Imtiaz Hodge APRN.CNP - 02/02/2024 2:34 PM EDT The following approved medication requests have been transmitted electronically. Requested Prescriptions Pending Prescriptions Disp Refills omeprazole (PRILOSEC) 20 mg capsule 45 capsule 3 Sig: take 1 capsule by mouth every other day 1/2 HOUR BEFORE BREAKFAST Imtiaz Hodge APRN.OCEAN FREIGHT MANAGER * Telephone Encounter - Criss Bacon - 02/02/2024 10:41 AM EDT Only taking it once every other day. [...] next office visit in primary care: 07/28/2024 [facility] in [place]. Please advise. Thank you. Criss Bacon. documented in this encounterAd[facility]05-[facility]24 Telephone encounter Note * Telephone Encounter - Criss Bacon - 02/02/2024 10:41 AM EDT Only taking it once every other day. [...] next office visit in primary care: 07/28/2024 [facility] in [place]. Please advise. Thank you. Criss Bacon. [facility]04-24-[facility] Instructions* Patient Instructions* Treva Sandoval APRN.CNP - 01/12/2024 9:34 AM EDT Get repeat fasting labs in 6 months prior to next visit. Watch higher carbs in the diet, increase protein, veggies, and stay active. Increase water intake. Continue to take all medication as prescribed. Follow up in 6 months or sooner as needed. documented in this encounterAdams [facility]04-24-2024 History of Present illness Narrative* Treva Sandoval APRN.CNP - 01/12/2024 9:20 AM EDT This is a 88 year old female [...] 2 mg daily. Checking sugars at home, 95- 120 fasting. Watching diet most of the time. [...] of fall Hyperlipidemia Inflammatory disease of breast halfway (current) use 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 halfway (current) use of oral hypoglycemic drugs Lumbar [...] APRN.CNP This note was partially generated using [employer] voice recognition system. Note was reviewed for accuracy. There may be minor misspellings or grammar miscues with [employer] voice recognition. documented in this encounterAdams County [facility] Center07-27-2023 Miscellaneous Notes* Telephone Encounter - Imtiaz Hodge APRN.CNP - 04/15/2023 11:14 AM EDT The following approved medication requests have been transmitted electronically. Requested Prescriptions Pending Prescriptions Disp Refills glimepiride (AMARYL) 1 mg tablet 90 tablet 1 Sig: Take 1 tablet by mouth daily with breakfast. Imtiaz Hodge APRN.CNP * Telephone Encounter - Alice Pedersen RN - 04/15/2023 11:05 AM EDT Patient has been identified by name and date of : Yes, Provider [facility] Date 04/15/23 Time 11:07 AM Patient phones [...] you. Alice Pedersen RN documented in this encounterAdams County [facility] Center05-31-2023 Miscellaneous Notes* Telephone Encounter - Treva Sandoval APRN.CNP - 02/17/2023 11:30 AM EDT The following approved medication requests have been transmitted electronically. Requested Prescriptions Signed Prescriptions Disp Refills meloxicam (MOBIC) 15 mg tablet 30 tablet 5 Sig: Take 1 tablet by mouth once daily. With food. Authorizing Provider: TREVA SANDOVAL APRN.CNP * Telephone Encounter - Chelle Torre Ma - 02/17/2023 10:49 AM EDT Last OV: 11/26/22 Next OV; 06/10/23 Last Rx: 10/08/22 #30 w/1. Chelle Torre Ma * Telephone Encounter - Flores Yanez - 02/17/2023 10:39 AM EDT Patient called to refill meloxicam; not on current med list. Said she doesn't take it daily, but likes to have it when she needs it. Uses [facility] in [place]. documented in this encounterAdams County [facility] Center05-08-2023 Miscellaneous Notes* Telephone Encounter - Shiela Cornelius RN - 01/25/2023 2:56 PM EDT Call placed to patient and notified prescription sent to pharmacy. Patient verbalizes understanding. Shiela Cornelius RN * Telephone Encounter - Treva Sandoval APRN.CNP - 01/25/2023 1:18 PM EDT The following approved medication requests have been transmitted electronically. Requested Prescriptions Pending Prescriptions Disp Refills omeprazole (PRILOSEC) 20 mg capsule 90 capsule 3 Sig: take 1 capsule by mouth once daily 1/2 HOUR BEFORE BREAKFAST Treva Sandoval APRN.BERNARDO * Telephone Encounter - Shiela Cornelius RN - 01/25/2023 9:47 AM EDT Patient has been identified by name and [...] you. Shiela Cornelius RN documented in this encounterAdams County [facility] Center03-31-2023 Miscellaneous Notes* Telephone Encounter - Imtiaz Hodge APRN.CNP - 12/18/2022 11:56 AM EDT The following approved medication requests have been transmitted electronically. Requested Prescriptions Pending Prescriptions Disp Refills blood sugar diagnostic (BLOOD GLUCOSE TEST) test strip 100 Strip 3 Sig: Test blood sugar(s) 1 times daily. Dx: E11.9. Insulin: No, Brand covered by insurance Imtiaz Hodge APRN.CNP * Telephone Encounter - Birdie Yanez - 12/18/2022 11:48 AM EDT Patient has been identified by name and date of : Yes Requested Prescriptions Pending Prescriptions Disp Refills blood sugar diagnostic (BLOOD GLUCOSE TEST) test strip 100 Strip 3 Sig: Test blood sugar(s) 1 times daily. Dx: E11.9. Insulin: No, Brand covered by insurance RX INSTRUCTIONS: Patient aware RX will be sent to pharmacy. No need to notify patient. Birdie Yanez documented in this encounterAdams County [facility] Center03-09-2023 Instructions* Patient Instructions* Treva Sandoval APRN.CNP - 11/26/2022 8:48 AM EST Get repeat labs in 6 months prior to next visit. Continue to eat a well balanced diet Monitor sugars at home Continue to take all medication as prescribed. Follow up in 6 months or sooner as needed. 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 Treva Sandoval APRN.OCEAN FREIGHT MANAGER This note was partially generated using [employer] voice recognition system. Note was reviewed for accuracy. There may be minor misspellings or grammar miscues with [employer] voice recognition. documented in this encounterAdams County [facility] Medical Center02-28-2023 History of Present illness Narrative* Rui Mendez MD - 11/17/2022 2:08 PM EST Chief Complaint Patient presents with: Pain: Reports started Saturday- starts in right buttuck and radiates down back of leg HPI Lucille Thurman is a 87 year old female who presents here today for Above Complaints. Accompanied today by her daughter Deanna. Patient complaining of right buttock pain which radiates to her ankle which started 4 days ago whenpayal was driving home from [place]. Described as constant dull pain, currently 1/10. Worst at night when lying down. Not treating with anything OTC. Has meloxicam at home for her hands which she takesPRN for her hands. 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 Rui Mendez MD documented in this encounterAdams County [facility] Center01-30-2023 Miscellaneous Notes* Telephone Encounter - Treva Sandoval APRN.OCEAN FREIGHT MANAGER - 10/19/2022 11:32 AM EST The following approved medication requests have been [...] daily at bedtime. For cholesterol. Treva Sandoval APRN.BERNARDO * Telephone Encounter - Galina Latesha [facility] - 10/19/2022 10:58 AM EST Patient has been identified by name and [...] to pharmacy. No need to notify patient. [facility] documented in this encounterAd[facility] Center01-19-2023 Miscellaneous Notes* Telephone Encounter - Radha Montana RN - 10/08/2022 8:22 AM EST Pt called and is notified of providers message. Pt voices understanding. Radha Montana RN * Telephone Encounter - Imtiaz Hodge APRN.CNP - 10/08/2022 7:59 AM EST Okay, let Lucille know that I have sent. The following approved medication requests have been transmitted electronically. Requested Prescriptions Signed Prescriptions Disp Refills meloxicam (MOBIC) 15 mg tablet 30 tablet 1 Sig: Take 1 tablet by mouth once daily. With food. Authorizing Provider: IMTIAZ HODGE APRN.CNP * Telephone Encounter - Winnie Yanez - 10/07/2022 8:18 AM EST [place] is calling Allie Stanton MD today she [...] calling: self Call patient at: at home [phone] (home) [phone] (work) [phone] (cell) Was an appointment scheduled: No Closing statement: Symptom Call: Thank you for calling [facility], your call is very important. A nurse will call in approximately 2-4 hours during business hours. If this is an emergency, please contact 911. Winnie Yanez documented in this encounterAdams County Regional Medical Center12-20-2022 Miscellaneous Notes* Telephone Encounter - Roxana Gurrola LPN - 09/08/2022 3:38 PM EST Pt called in and notified of results and provider message. Pt reports she [facility] not get [facility]. Roxana Gurrola LPN documented in this encounterAdams County Regional Medical Center12-20-2022 Miscellaneous Notes* Telephone Encounter - Jenifer Leon Ma - 09/08/2022 1:38 PM EST Pt notified of results via [employer]. 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 I would recommend that she continue with the meloxicam/Mobic 15 mg daily. Please let me know if she has any questions. Thank you. Treva Sandoval APRN.BERNARDO documented in this encounterAdams County [facility] Center12-15-2022 History of Present illness Narrative* Carla Davis RT(R) - 09/03/2022 11:10 AM EST Radiology Service Progress Note PATIENT NAME: Lucille Thurman DATE OF SERVICE: September 03, 2022 TIME: 11:12 AM PATIENT IDENTITY VERIFICATION COMPLETED USING TWO (2) IDENTIFIERS: Name and Date of confirmedby patient verbally. FALL SCREENING: Has the patient had 2 falls in the last year or 1 fall with injury or currently using an Ambulatory Assistive Device (Walker, Cane, Wheelchair, Crutches, etc.)? No PATIENT GENDER DATA: Female. status: : No status: NO. PATIENT RELEVANT IMPLANT DATA REVIEWED: Yes RADIOLOGY DEPARTMENT: General X-ray: Exam(s) Completed: Upper Extremity X- Ray(s): Hand, bilateral PERIPHERAL IV DATA: Not applicable SIGNED BY: RT Jose David(Teresa) September 03, 2022 11:12 AM documented in this encounterAdams County [facility] Medical Center12-15-2022 Instructions* Patient Instructions* Treva Sandoval APRN.CNP - 09/03/2022 10:54 AM EST Get xray of hands completed. Increase meloxicam 15 mg daily, take with food. May continue to use heat to the hands. Follow up pending test results or sooner as needed. 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 Nontender [...] APRN.BERNARDO This note was partially generated using [employer] voice recognition system. Note was reviewed for accuracy. There may be minor misspellings or grammar miscues with [employer] voice recognition. documented in this encounterAdams County [facility] Center05-26-2022 Miscellaneous Notes* Letter - Mammography Coordinator - 02/12/2022 11:49 AM EDT February 12, 2022 PID: [id number] Lucille Thurman [address] [place] [address] Dear Ms. Thurman, We are pleased to [...] dense breast tissue in addition to other riskfactors. Early detection of cancer is very important. We also understand recommendations regarding breast cancer screening are controversial. Please discuss with your primary care provider which strategy is best for you and whether a mammogram is right for you. Your imaging studies and report will be kept on file at [facility] as part of your permanent medical record and are available for your continuing care. Thank you for allowing us to help in meeting your health care needs. Sincerely, Dr. Hand Interpreting Radiologist [facility] (Normal over 40) documented in this encounterAdams County Regional Medical Center05-26-2022 History of Present illness Narrative* RT Liya(R) - 02/12/2022 9:30 AM EDT Radiology Service Progress Note PATIENT NAME: Lucille Thurman DATE OF SERVICE: February 12, 2022 TIME: 9:39 AM PATIENT IDENTITY VERIFICATION COMPLETED USING TWO (2) IDENTIFIERS: Name and Date of confirmedby patient verbally. FALL SCREENING: Has the patient [...] 12, 2022 9:39 AM documented in this encounterAdams County [facility] Center04-13-2022 Miscellaneous Notes* Telephone Encounter - Luana Degroot Cma - 12/31/2021 12:13 PM EDT Printed and mailed Luana Degroot Cma * Telephone Encounter - Khari Snushine APRN.CNP, DNP - 12/29/2021 4:15 PM EDT Team - I completed a letter moon Rx for her. Please print and mail to her. Khari Sunshine APRN.CNP, DNP * Telephone Encounter - Bibiana Diaz RN - 12/29/2021 12:08 PM EDT Patient calling with request for script for handicap moon. Please mail to home address on file. See previous script in Epic letters 03/25/17. Bibiana Diaz RN documented in this encounterAdams County [facility] Center04-01-2022 History of Present illness Narrative* Sade Cowart RT(R) - 12/19/2021 3:40 PM EDT Radiology Service Progress Note PATIENT NAME: Lucille Thurman DATE OF SERVICE: December 19, 2021 TIME: 3:41 PM PATIENT IDENTITY VERIFICATION COMPLETED USING TWO (2) IDENTIFIERS: Name and Date of confirmedby patient verbally. FALL SCREENING: Has the patient had 2 falls in the last year or 1 fall with injury or currently using an Ambulatory Assistive Device (Walker, Cane, Wheelchair, Crutches, etc.)? No PATIENT GENDER DATA: Female. status: : No status: NO. PATIENT RELEVANT IMPLANT DATA REVIEWED: Not Applicable RADIOLOGY DEPARTMENT: General X-ray: Exam(s) Completed: Lower Extremity X- Ray(s): Knee, AP / LAT Right and Wt. Bearing PERIPHERAL IV DATA: Not applicable SIGNED BY: RT Karlos(R) December 19, 2021 3:41 PM documented in this encounterAdams County [facility] Medical Center04-01-2022 Instructions* Patient Instructions* Khari Sunshine APRN.OCEAN FREIGHT MANAGER, DNP - 12/19/2021 3:27 PM EDT Follow-up with [...] For severe symptoms seek care at the closestER. Plan of care, medicaiton side effects and management reviewed. Patient verbalizes understandingof instructions. Healthy Habits: Recommend regular physical activity, [...] health. Khari Sunshine DNP.BERNARDO documented in this encounterAdams County [facility] Center04-01-2022 History of Present illness Narrative* Khari Sunshine APRN.SHAHEEN CHANG - 12/19/2021 3:00 PM EDT Chief Complaint Patient presents with: Knee Pain [...] Woke up 2 days ago with pain inright knee and slight swelling. Denies redness. Takes [...] of fall Hyperlipidemia Inflammatory disease of breast halfway (current) use 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 halfway (current) use of oral hypoglycemic drugs Lumbar [...] one scoop daily with glass of juice/water/etc. MULTIVITS, W-CA,FE,OTH MIN (MULTIVITAMIN AND MINERAL ORAL) [...] Abs Lymph 1.00 - 4.00 k/uL 1.67 Anderson% % 8.8 Abs Anderson <0.87 k/uL 0.69 Eosin% % 1.5 Abs [...] For severe symptoms seek care at the closestER. Plan of care, medicaiton side effects and management reviewed. Patient verbalizes understandingof instructions. - XR KNEE LIMITED 2V AP/LAT RIGHT Khari Sunshine APRN.SHAHEEN CHANG This note was completed with [employer] dictation software. Note was reviewed for accuracy. There may be minor misspellings or grammar miscues with [employer] D[employer]ation. I spent a total of 19 minutes on the date of the service which included preparing to see the patient, [id number] patient care, completing clinical documentation, performing a medically appropriate examination, counseling and educating the patient/family/caregiver and ordering medications, tests, or procedures. [place] [id number] This note was copied from previous note and exam dated 11/27/21 . Author is Khari Sunshine APRN.SHAHEEN CHANG note reviewed and changes have been made or updates noted in the copy & paste portion of an encounter. documented in this encounterAdams County [facility] Medical Center02-11-2022 History of Present illness Narrative* Carla Davis RT(R) - 10/31/2021 4:00 PM EST Radiology Service Progress Note PATIENT NAME: Lucille Thurman DATE OF SERVICE: October 31, 2021 TIME: 4:09 PM PATIENT IDENTITY VERIFICATION COMPLETED USING TWO (2) IDENTIFIERS: Name and Date of confirmedby patient verbally. FALL SCREENING: Has the patient [...] 31, 2021 4:09 PM documented in this encounterAdams County [facility] Center05-12-2021 Miscellaneous Notes* Telephone Encounter - Lou Walsh Ma - 01/29/2021 8:56 AM EDT Please call pt to schedule appt. * Telephone Encounter - Khari Sunshine APRN.CNP, DNP - 01/28/2021 2:59 PM EDT Order placed. ASSESSMENT/PLAN: 1. Encounter for screening mammogram for malignant neoplasm of breast - ICD9: V76.12, ICD10: Z12.31 - SYD SCREENING W NANO Sunshine APRN.CNP, DNP [facility] * Telephone Encounter - Alice Pedersen RN - 01/28/2021 2:20 PM EDT Patient reports Dr. Donahue placed an order for her to have a mammogram before he retired. States sheis so frustrated. Tried to schedule it, and the person she talked to said she would need a new order, because Dr. Donahue's order is no good since he retired. Asking if [employer] can order the mammogram? Please phone patient with reply. documented in this encounterAdams County [facility] Center01-09-2018 History of Past illness Narrative* Problem Noted [...] of this encounter (statuses as of 12/19/2021) [facility] of Past illness Narrative* Problem Noted [...] of this encounter (statuses as of 01/08/2022) [facility] of Past illness Narrative* Problem Noted [...] of this encounter (statuses as of 02/13/2022) [facility] of Past illness Narrative* Problem Noted [...] of this encounter (statuses as of 02/14/2022) [facility] of Past illness Narrative* Problem Noted [...] of this encounter (statuses as of 02/17/2022) [facility] of Past illness Narrative* Problem Noted [...] of this encounter (statuses as of 09/03/2022) [facility] of Past illness Narrative* Problem Noted [...] of this encounter (statuses as of 09/08/2022) [facility] of Past illness Narrative* Problem Noted [...] of this encounter (statuses as of 09/08/2022) [facility] of Past illness Narrative* Problem Noted [...] of this encounter (statuses as of 10/08/2022) [facility] of Past illness Narrative* Problem Noted [...] of this encounter (statuses as of 10/19/2022) [facility] of [facility] illness Narrative* Problem Noted [...] of this encounter (statuses as of 11/17/2022) [facility] of [facility] illness Narrative* Problem Noted [...] of this encounter (statuses as of 11/26/2022) [facility] of [facility] illness Narrative* Problem Noted [...] of this encounter (statuses as of 12/18/2022) [facility] of [facility] illness Narrative* Problem Noted [...] of this encounter (statuses as of 01/26/2023) [facility] of [facility] illness Narrative* Problem Noted [...] of this encounter (statuses as of 02/17/2023) [facility] of Past illness Narrative* Problem Noted [...] of this encounter (statuses as of 04/15/2023) [facility] CenterDischarge summary Author Julio Pickens [facility] Note Date/Time March 03, 2025 8:29 am [facility] Medical Records Department [address] [place] [address] Emergency Department Summary 03/03/25 MR#: [id number] Acct: [id number] Name: LUCILLE THURMAN Rep #:[id number] : 1935 89 From: Julio Pickens MD PCP: Dr. Allie Stanton MD Status:RE G ER Location: ED HPI History of Present Illness Chief Complaint: Back Narrative Narrative: 89-year-old female presents with her daughter and son-in-law because of low backpain that she has had for weeks. They states that recently she moved and is nowliving independently with a relative. She states that she is having low back pain intermittently for the last few weeks. Over the last few days, it is worseespecially at nighttime. She is taking Tylenol without relief. She denies any fevers or chills, no nausea or vomiting. Pain radiates down to her left foot and is mainly on the left side and in her low back. No recent falls. No loss of bowel or bladder but she does states she has urinary frequency. She presentsbecause of the increased pain in her low back radiating down to her left foot that is worse with walking and movement. [facility] Medical History Chronic kidney disease, stage 3b Acute diastolic (congestive) heart failure NSTEMI (non-ST elevated myocardial infarction) Anemia Diabetes Non-smoker Skin cancer Dehydration GERD (gastroesophageal reflux disease) Acute blood loss anemia Closed left hip fracture HTN (hypertension) Hypercholesteremia Type II diabetes mellitus Home Medications ?Medication ?Instructions ?Recorded ?Last Taken ?Type multivitamin with folic acid 400 1 tab PO DAILYCM abram min #30 tabs 02/11/15 03/02/25 Rx mcg tablet blood sugar diagnostic (True 10/04/24 Unknown History Metrix Glucose Test Strip) aspirin 81 mg tablet,delayed 81 mg PO BREAKFAST 30 day s #30 tabs 10/08/24 03/02/25 Rx release atorvastatin 40 mg tablet 40 mg PO QHS #90 tabs 03/02/25 Rx carvedilol 3.125 mg tablet 3.125 mg PO BID 30 days #18 0 tabs 10/12/24 03/02/25 Rx clopidogrel 75 mg tablet 75 mg PO DAILY 30 days #90 t abs 10/12/24 03/02/25 Rx empagliflozin 10 mg tablet 10 mg PO DAILY 30 days #90 tabs 10/12/24 03/02/25 Rx (Jardiance) nitroglycerin 0.4 mg sublingual 0.4 mg sublingual Q5-1 5M PRN chest 01/01/25 Unknown Rx tablet pain #20 tabs omeprazole 20 mg capsule,delayed 20 mg PO QODAY 03/02/25 History release amlodipine 10 mg tablet 10 mg PO DAILY 03/03/2502/18 History furosemide 20 mg tablet 20 mg PO DAILY 03/03/2502/18 History isosorbide mononitrate 30 mg 30 mg PO DAILY awaiting m ail in 03/03/25 03/02/25 History tablet,extended release 24 hr RX, pt out of med losartan 100 mg tablet 100 mg PO DAILY 03/03/25 History tramadol 50 mg tablet 50 mg PO Q6H PRN pain 3 days #12 03/03/25 Unknown Rx tabs Allergy/AdvReac Type Severity Reaction Status Date / Time metformin Allergy Hives Verified 03/03/25 06:54 morphine AdvReac Nausea Verified 03/03/25 06:54 oxycodone (Oxycodone) AdvReac Nausea Verified 03/03/25 06:54 Family History Sister Breast cancer Colon cancer [...] not use ROS ROS ED ROS Narrative Review of systems positive for low back pain, initially midline but now more left-sided with radiation to left foot. No fevers or chills, no nausea or vomiting. No loss of bowel or bladder. No saddle anesthesia. Worse with movement and walking. EXAM Physical Exam Narrative Exam Narrative: Afebrile. Vital signs noted. Nontoxic-appearing. Cardiovascular examination regular rate and rhythm. Lungs are clear to auscultation bilaterally. Abdomen is soft, nontender, with positive bowel sounds. No vertebral point tenderness or bony step-off of the lumbar spine. Mild tenderness to palpation left sciaticnotch. Neuro vastly intact bilateral lower extremities with patellar DTRs equaland symmetric. EHL intact bilaterally. Positive pain in the low back with raising of left leg but no cross symptoms. Const Vital Signs: 03/03/25 06:54 03/03/25 06:58 Temperature 98.0 F Temperature Source Oral Pulse Rate 88 Respiratory Rate 18 Respiratory Effort Normal Non-Labored Respiratory Pattern Normal Blood Pressure 172/73 H Blood Pressure Mean 106 Pulse Ox 96 Oxygen Delivery Method Room Air MDM MDM MDM Narrative Medical decision making narrative: Differential diagnosis includes but not limited to spinal stenosis versus sciatica. While she has urinary frequency, she may have a UTI. I have low suspicion clinically for cauda equina syndrome as she has no red flag symptoms. I discussed with them the use of analgesics. She states she has history of chronic kidney disease so does not want to take an NSAID. I discussed with her narcotic pain medication and she declined. It was agreed upon through shared decision making that she would like to try 1 tramadol 50 mg orally. Urinalysis will be obtained to rule out infection. CT imaging of the lumbar spine will be obtained to help rule out fracture. I reviewed her urinalysis and it is negative for infection with 0 WBCs and 0 bacteria. I do not feel antibiotics are indicated. I reviewed the radiology report of the CT of the lumbar spine and there is multilevel degenerative disc disease. No evidence of an acute fracture. Upon repeat examination, she statesthat she feels unchanged. Her daughter inquired about a muscle relaxer. I we will give her a one-time dose. It was decided that instead of Valium that she will be given 1 Norflex here. I will write her prescription for tramadol which she can alternate between this and Tylenol. I discussed with the patient and her family the possibility of observation or admission for PT OT eval and possible placement in rehab but she declined. She was able to ambulate with a walker here and her family states that they have a walker at home which she can use. She will follow-up with her primary care provider. Return instructions tothe emergency department were reviewed. Disposition is discharged home in stable condition. History & Record Review Discussion w/independent historian: Patient and Family Lab Data Attestation: I reviewed the patient's lab results. Labs: Laboratory Results - last 24 hr 03/03/25 07:30 Urine Color Yellow Urine Clarity Clear Urine pH 7.0 Ur Specific [place] 1.005 Urine Protein 30 H Urine Glucose (UA) 250 H Urine Ketones Negative Urine Occult Blood 10 H Urine Nitrite Negative Urine Bilirubin Negative Urine Urobilinogen Normal Ur Leukocyte Esterase Negative Urine RBC 0 SEEN Urine WBC 0 SEEN Ur Squamous Epith Cells 0 SEEN Urine Bacteria 0 SEEN Urine Mucus 0 SEEN Radiography Diagnostic Testing: Clinical Impression(s) from Imaging Studies Lumbar Spine CT 03/03/25 07:17 IMPRESSION: No acute process. Multilevel degenerative disc disease, endplate spondylosis, fairly well rib AP alignment [facility] Discharge Plan Triage Chief Complaint: Back ED Provider: Julio Pickens Dx/Rx/DC Orders Clinical Impression: Back pain, Left lumbar radiculopathy Instructions: ED Back Pain (Acute or Chronic), ED Sciatica Prescriptions: New tramadol 50 mg tablet 50 mg PO Q6H PRN (Reason: pain) 3 Days Qty: 12 0RF No Action atorvastatin 40 mg tablet 40 mg PO QHS Qty: 90 3RF carvedilol 3.125 mg tablet 3.125 mg PO BID 30 Days Qty: 180 3RF Jardiance 10 mg tablet 10 mg PO DAILY 30 Days Qty: 90 3RF clopidogrel 75 mg tablet 75 mg PO DAILY 30 Days Qty: 90 3RF Rx Instructions: Discontinue if platelet count drops less than 50,000 or hemoglobin less than 8 g% omeprazole 20 mg capsule,delayed release(DR/EC) 20 mg PO QODAY nitroglycerin 0.4 mg tablet, sublingual 0.4 mg sublingual Q5-15M PRN (Reason: chest pain) Qty: 20 3RF Rx Instructions: do not exceed 3 doses per episode multivitamin with folic acid 1 TABLET tablet 1 tab PO DAILYCM Qty: 30 0RF Patient Comments: supplement (DME) True Metrix Glucose Test Strip Strip MISCELLANEOUS DAILY aspirin 81 mg Tablet,Delayed Release (Dr/Ec) 81 mg PO BREAKFAST 30 Days Qty: 30 4RF furosemide 20 mg tablet 20 mg PO DAILY isosorbide mononitrate 30 mg tablet extended release 24 hr 30 mg PO DAILY amlodipine 10 mg tablet 10 mg PO DAILY losartan 100 mg tablet 100 mg PO DAILY Primary Care Provider: Allie Stanton Referrals: Treva Sandoval SPANISH TRANSLATOR-C [Non-Staff] - Activity Restrictions/Additional Instructions: Use a walker to help you ambulate. Alternate between Tylenol and tramadol for your back pain. Follow-up with your primary care provider. Return with fever, inability to perform your activities of daily living, new or worsening symptoms. Print Language: Mongolian Disposition Disposition: Home, Self Care What to do if you have Problems For any increased pain, shortness of breath, bleeding, nausea or vomiting, chestpain, or any unexpected problems, contact your Primary Care Provider. Call [facility] ([phone]) or report to the closest Emergency Room. Call 911 if necessary. 03/03/25 0829 <Electronically signed by Julio Pickens MD> Cosigner Signature (if applicable): CC: Dr. Allie Stanton MD ~ Signed [facility] Work Phone: Evaluation + Plan note No data available for this section [facility] Evaluation note* Diagnosis Controlled type 2 diabetes mellitus without complication, without long-term current use of insulin (HCC)- Primary Stage 3b chronic kidney disease (HCC) Chronic pain of right knee Encounter for screening mammogram for malignant neoplasm of breast Other screening [facility] Diagnosis Encounter for screening mammogram for malignant neoplasm of breast- Primary Other screening mammogram [facility] Diagnosis Encounter for screening mammogram for malignant neoplasm of breast Other screening mammogram [facility]* Diagnosis Bilateral hand pain- Primary Pain in limb [facility] Diagnosis Bilateral hand pain Pain in limb [facility]* Diagnosis Essential hypertension, benign Hyperlipidemia LDL goal <100 Other and unspecified hyperlipidemia [facility]* Diagnosis Sciatica, right side- Primary [facility]* Diagnosis 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 3 chronic kidney disease, without long-term current use of insulin (HCC)- Primary Essential hypertension, benign Hyperlipidemia LDL goal <100 Other and unspecified hyperlipidemia Gastroesophageal reflux disease with esophagitis without hemorrhage Arthritis of hand Unspecified arthropathy, hand [facility]* Diagnosis Controlled type 2 diabetes mellitus without complication, without long-term current use of insulin (HCC) [facility]* Diagnosis Gastroesophageal reflux disease without esophagitis Esophageal reflux [facility] Diagnosis Bilateral hand pain Pain in limb [facility] Diagnosis 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 3 chronic kidney disease, without long-term current use of insulin (HCC) [facility] Diagnosis 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 3 chronic kidney disease, without long-term current use of insulin (HCC)- Primary Essential hypertension, benign Gastroesophageal reflux disease without esophagitis Esophageal reflux Hyperlipidemia LDL goal <100 Other and unspecified hyperlipidemia Bilateral hand pain Pain in limb [facility] Diagnosis Gastroesophageal reflux disease without esophagitis Esophageal reflux documented [facility]* Diagnosis Controlled type 2 diabetes mellitus without complication, without long-term current use of insulin (HCC) [facility] Diagnosis Controlled type 2 diabetes mellitus without complication, without long-term current use of insulin (HCC) [facility]* Diagnosis Bilateral hand pain Pain in limb [facility]* Diagnosis Chronic pain of right knee [facility]* Diagnosis Left hip pain Pain in joint, pelvic region and thigh [facility]* Diagnosis 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 3 chronic kidney disease, without long-term current use of insulin (HCC)- Primary Essential hypertension, benign Stage 3 chronic kidney disease, unspecified whether stage 3a or 3b CKD (HCC) Hyperlipidemia LDL goal <100 Other and unspecified hyperlipidemia Gastroesophageal reflux disease without esophagitis Esophageal reflux [facility]* Diagnosis Essential hypertension, benign- Primary Stage 3 chronic kidney disease, unspecified whether stage 3a or 3b CKD (HCC) documented [facility]* Diagnosis Bilateral leg edema- Primary Edema Essential hypertension, benign Stage 3 chronic kidney disease, unspecified whether stage 3a or 3b CKD (HCC) Hyperlipidemia LDL goal <100 Other and unspecified hyperlipidemia 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 3 chronic kidney disease, without long-term current use of insulin (HCC) Dry eye Tear film insufficiency, unspecified [facility]* Diagnosis Essential hypertension, benign- Primary Congestive heart failure, unspecified HF chronicity, unspecified heart failure type (HCC) documented [facility]* Diagnosis Hospital discharge follow-up- Primary Other [...] of insulin (HCC) [facility]* Diagnosis Gastroesophageal reflux disease without esophagitis Esophageal reflux documented [facility]* Diagnosis 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 3 chronic kidney disease, without long-term current use of insulin (HCC) documented [facility]* Diagnosis Controlled type 2 diabetes mellitus [...] and behavioral disorders [facility] Diagnosis Stage 3b chronic kidney disease (HCC)- Primary Acute midline low back pain without sciatica [facility] No data available for this section [facility] Hospital Discharge instructions Additional Instructions Use a walker to help you ambulate. Alternate between Tylenol and tramadol for your back pain. Follow-up with your primary care provider. Return with fever, inability to perform your activities of daily living, new or worsening symptoms.[facility] Work Phone: Progress note No data available for this section [facility] Reason for referral (narrative)* Diagnostic Procedure Only (Routine) - Closed Specialty Diagnoses / Procedures Referred By Brent aparicio Referred To Contact XR IMAGING Diagnoses Chronic pain of right knee Procedures XR KNEE LIMITED 2V AP/LAT RIGHT RADIOLOGIC EXAMINATION KNEE 1/2 VIEWS Khari Sunshine APRN.SHAHEEN CHANG [address] [place] [address] Xr Imaging Referral ID Status Reason Start Date Expiration Date V isits Requested Visits Authorized [id number] Closed Auto-Generate d Referral 12/19/2021 01/18/2023 1 1 * Diagnostic Procedure Only (Routine) - Authorized Specialty Diagnoses / Procedures Referred By Contjacoby t Referred To Contact BR IMAGING Diagnoses Encounter for screening mammogram for malignant neoplasm of breast Procedures SYD SCREENING SCREENING MAMMOGRAPHY BI 2-VIEW BREAST INC CAD Khari Sunshine APRN.CNP, DNP [address] [place] [address] Br Imaging [address] [facility] [address] Referral ID Status Reason Start Date Expiration Date Visits Requested Visits Authorized [id number] Authorized Auto-Generat ed Referral 02/09/2022 01/18/2023 1 1 [facility] for referral (narrative)* Diagnostic Procedure Only (Routine) - Closed Specialty Diagnoses / Procedures Referred By Contac t Referred To Contact BR IMAGING Diagnoses Encounter for screening mammogram for malignant neoplasm of breast Procedures SYD SCREENING SCREENING MAMMOGRAPHY BI 2-VIEW BREAST INC Khari Lerner APRN.SHAHEEN CHANG [address] [place] [address] Br Imaging [address] [facility] [place] [address] Referral ID Status Reason Start Date Expiration Date V isits Requested Visits Authorized [id number] Closed Auto-Generate d Referral 02/09/2022 01/18/2023 1 1 [facility] for referral (narrative)* Diagnostic Procedure Only (Routine) - Closed Specialty Diagnoses / Procedures Referred By Contac t Referred To Contact XR IMAGING Diagnoses Bilateral hand pain Procedures XR HAND GENERAL 3V PA/LAT/OBL BILATERAL RADEX HAND MINIMUM 3 VIEWS Treva Sandoval APRN.CNP [address] [place] [address] Xr Imaging Referral ID Status Reason Start Date Expiration Date V isits Requested Visits Authorized [id number] Closed Auto-Generate d Referral 09/03/2022 10/03/2023 1 1 [facility] for referral (narrative)* Diagnostic Procedure Only (Routine) - Closed Specialty Diagnoses / Procedures Referred By Contac t Referred To Contact XR IMAGING Diagnoses Bilateral hand pain Procedures XR HAND GENERAL 3V PA/LAT/OBL BILATERAL RADEX HAND MINIMUM 3 VIEWS Treva Sandoval APRN.CNP [address] [place] [address] [place] [address] Referral ID Status Reason Start Date Expiration Date V isits Requested Visits Authorized [id number] Closed Auto-Generate d Referral 09/03/2022 10/03/2023 1 1 [facility] for referral (narrative)* Diagnostic Procedure Only (Routine) - Closed Specialty Diagnoses / Procedures Referred By Contac t Referred To Contact XR IMAGING Diagnoses Chronic pain of right knee Procedures XR KNEE LIMITED 2V AP/LAT RIGHT RADIOLOGIC EXAMINATION KNEE 1/2 VIEWS Khari Sunshine APRN.CNP, DNP [address] [place] [address] [place] [address] Referral ID Status Reason Start Date Expiration Date V isits Requested Visits Authorized [id number] Closed Auto-Generate d Referral 12/19/2021 01/18/2023 1 1 [facility] for referral (narrative)* Diagnostic Procedure Only (Routine) - Closed Specialty Diagnoses / Procedures Referred By Contac t Referred To Contact XR IMAGING Diagnoses Left hip pain Procedures XR HIP GENERAL 3V PELV/AP/LAT LEFT RADEX HIP UNILATERAL WITH PELVIS 2-3 VIEWS Khari Sunshine APRN.CNP, DNP [address] [place] [address] [place] [address] Referral ID Status Reason Start Date Expiration Date V isits Requested Visits Authorized [id number] Closed Auto-Generate d Referral 10/31/2021 11/30/2022 1 1 [facility] for referral (narrative)No reason for referral [facility] Work Phone: Reason for visit Narrative* Diagnostic Procedure Only (Routine) - Closed Specialty Diagnoses / Procedures Referred By Contac t Referred To Contact BR IMAGING Diagnoses Encounter for screening mammogram for malignant neoplasm of breast Procedures SYD SCREENING SCREENING MAMMOGRAPHY BI 2-VIEW BREAST INC CAD Khari Sunshine APRN.CNP, DNP [address] [place] [address] Br Imaging [address] [place] [address] Referral ID Status Reason Start Date Expiration Date V isits Requested Visits Authorized [id number] Closed Auto-Generate d Referral 02/09/2022 01/18/2023 1 1 [facility] for visit Narrative* Diagnostic Procedure Only (Routine) - Closed Specialty Diagnoses / Procedures Referred By Contac t Referred To Contact XR IMAGING Diagnoses Bilateral hand pain Procedures XR HAND GENERAL 3V PA/LAT/OBL BILATERAL RADEX HAND MINIMUM 3 VIEWS Treva Sandoval, METAL DRILL OPERATORLAMINE [address] [place] [address] [place] [address] Referral ID Status Reason Start Date Expiration Date V isits Requested Visits Authorized [id number] Closed Auto-Generate d Referral 09/03/2022 10/03/2023 1 1 [facility] for visit Narrative* Diagnostic Procedure Only (Routine) - Closed Specialty Diagnoses / Procedures Referred By Contac t Referred To Contact XR IMAGING Diagnoses Chronic pain of right knee Procedures XR KNEE LIMITED 2V AP/LAT RIGHT RADIOLOGIC EXAMINATION KNEE 1/2 VIEWS Khari Sunshine, METAL DRILL OPERATOR.SHAHEEN CHANG [address] [place] [address] [place] [address] Referral ID Status Reason Start Date Expiration Date V isits Requested Visits Authorized [id number] Closed Auto-Generate d Referral 12/19/2021 01/18/2023 1 1 [facility] for visit Narrative* Diagnostic Procedure Only (Routine) - Closed Specialty Diagnoses / Procedures Referred By Contac t Referred To Contact XR IMAGING Diagnoses Left hip pain Procedures XR HIP GENERAL 3V PELV/AP/LAT LEFT RADEX HIP UNILATERAL WITH PELVIS 2-3 VIEWS Khari Sunshine, METAL DRILL OPERATOR.SHAHEEN CHANG [address] [place] [address] [place] [address] Referral ID Status Reason Start Date Expiration Date V isits Requested Visits Authorized [id number] Closed Auto-Generate d Referral 10/31/2021 11/30/2022 1 1 [facility] Summary Purpose Family History Relationship Condition Age at Onset Recorded Date/T eliza sister Malignant neoplasm of breast Unknown Malignant neoplasm of colon Unknown Diabetes mellitus Unknown uncle Cardiac disease Unknown brother Kidney disorder Unknown Advance Directives Documents on File Type Date Recorded Patient Form Building Supervisor Expl anation Advance Directive(s) 10/27/2016 8:30 AM Advance Directive(s) 10/22/2016 1:45 PM Advance Directive(s) 03/03/2011 12:00 AM Advance Directive(s) 11/05/2006 12:00 AM Documents on File Type Date Recorded Patient Form Building Supervisor Expl anation Advance Directive(s) 10/27/2016 8:30 AM Advance Directive(s) 10/22/2016 1:45 PM Advance Directive(s) 03/03/2011 12:00 AM Advance Directive(s) 11/05/2006 12:00 AM Documents on File Type Date Recorded Patient Form Building Supervisor Expl anation Advance Directive(s) 03/03/2011 Advance Directive(s) 11/05/2006 Documents on File Type Date Recorded Patient Form Building Supervisor Expl anation Advance Directive(s) 03/03/2011 Advance Directive(s) 11/05/2006 Advance Directive Response Recorded Date/ Time Do you have a Healthcare Power of Kayaking Instructor? Yes March 03, 2025 6:57am Advance Directives Yes February 12 9:27am Advance Directive Response Recorded Date/ Time Do you have a Healthcare Power of Kayaking Instructor? Yes March 03, 2025 6:57am Do you have a Healthcare Power of Kayaking Instructor? Yes March 07, 2025 9:51am Advance Directives Yes February 12 9:27am Advance Directive Response Recorded Date/ Time Do you have a Healthcare Power of Kayaking Instructor? Yes March 03, 2025 6:57am Do you have a Healthcare Power of Kayaking Instructor? Yes March 07, 2025 1:35pm Advance Directives Yes February 12 9:27am Reason for Referral Specialty Diagnoses / Procedures Referred By Contac t Referred To Contact Nephrology Diagnoses Essential hypertension, benign Stage 3 chronic kidney disease, unspecified whether stage 3a or 3b CKD (HCC) Procedures CONSULT TO NEPHROLOGY OFFICE/OUTPATIENT [facility] 60 MINUTES Treva Sandoval APRN.OCEAN FREIGHT MANAGER [address] [place] [address] Referral ID Status Reason Start Date Expiration Date Visits Requested Visits Authorized [id number] Authorized PCP Requested Referral 4 09/14/2025 1 1 Chief Complaint and Reason for Visit Chief Complaint Admit Date 3 M FU January 01, 2025 9:0 3am back pain March 03, 2025 6:54 am Reason for Visit Admit Date Coronary artery disease January 01, 2025 9:03am Diastolic dysfunction January 01, 2025 9 :03am Dyslipidemia January 01, 2025 9:0 3am HTN (hypertension) January 01, 2025 9:0 3am Type II diabetes mellitus January 01 9:03am Chief Complaint Admit Date 3 M FU January 01, 2025 9:0 3am back pain March 03, 2025 6:54 am BACK PAIN March 07, 2025 11:2 0am Chief Complaint Admit Date 3 M FU January 01, 2025 9:0 3am back pain March 03, 2025 6:54 am BACK PAIN March 07, 2025 11:2 0am BACK PAIN March 07, 2025 8:46 pm BACK PAIN March 08, 2025 9:40 am Reason for Visit Admit Date Coronary artery disease January 01, 2025 9:03am Diastolic dysfunction January 01, 2025 9 :03am Dyslipidemia January 01, 2025 9:0 3am HTN (hypertension) January 01, 2025 9:0 3am Type II diabetes mellitus January 01 9:03am Back pain March 07, 2025 11:2 0am Additional Source Comments INFORMATION SOURCE (unrecogn ized section and content) DATE CREATED AUTHOR 08/07/2018 [email or web address] DATE CREATED AUTHOR AUTHOR'S ORGANIZ ATION 12/28/2020 [facility] DATE CREATED AUTHOR AUTHOR'S ORGANIZ ATION 10/31/2024 [facility] DATE CREATED AUTHOR AUTHOR'S ORGANIZ ATION 03/05/2025 [facility] DATE CREATED AUTHOR AUTHOR'S ORGANIZ ATION 03/08/2025 [facility] Source Comments (unrecognize d section and content) In the event this informatio n is protected by the Federal Confidentiality of Alcohol and Drug Abuse Patient Records regulations: The Federal rules restrict any use of the information to criminally investigate or prosecute any alcohol or drug abuse patient.[facility] the event this information is protected by the Federal Confidentiality of Alcohol and Drug Abuse Patient Records regulations: The Federal rules restrict any use of the information to criminally investigate or prosecute any alcohol or drug abuse patient.[facility] the event this information is protected by the Federal Confidentiality of Alcohol and Drug Abuse Patient Records regulations: The Federal rules restrict any use of the information to criminally investigate or prosecute any alcohol or drug abuse patient.[facility] the event this information is protected by the Federal Confidentiality of Alcohol and Drug Abuse Patient Records regulations: The Federal rules restrict any use of the information to criminally investigate or prosecute any alcohol or drug abuse patient.[facility] the event this information is protected by the Federal Confidentiality of Alcohol and Drug Abuse Patient Records regulations: The Federal rules restrict any use of the information to criminally investigate or prosecute any alcohol or drug abuse patient.[facility] the event this information is protected by the Federal Confidentiality of Alcohol and Drug Abuse Patient Records regulations: The Federal rules restrict any use of the information to criminally investigate or prosecute any alcohol or drug abuse patient.[facility] CenterIn the event this information is protected by the Federal Confidentiality of Alcohol and Drug Abuse Patient Records regulations: The Federal rules restrict any use of the information to criminally investigate or prosecute any alcohol or drug abuse patient.[facility] CenterIn the event this information is protected by the Federal Confidentiality of Alcohol and Drug Abuse Patient Records regulations: The Federal rules restrict any use of the information to criminally investigate or prosecute any alcohol or drug abuse patient.[facility] CenterIn the event this information is protected by the Federal Confidentiality of Alcohol and Drug Abuse Patient Records regulations: The Federal rules restrict any use of the information to criminally investigate or prosecute any alcohol or drug abuse patient.[facility] CenterIn the event this information is protected by the Federal Confidentiality of Alcohol and Drug Abuse Patient Records regulations: The Federal rules restrict any use of the information to criminally investigate or prosecute any alcohol or drug abuse patient.[facility] CenterIn the event this information is protected by the Federal Confidentiality of Alcohol and Drug Abuse Patient Records regulations: The Federal rules restrict any use of the information to criminally investigate or prosecute any alcohol or drug abuse patient.[facility] CenterIn the event this information is protected by the Federal Confidentiality of Alcohol and Drug Abuse Patient Records regulations: The Federal rules restrict any use of the information to criminally investigate or prosecute any alcohol or drug abuse patient.[facility] CenterIn the event this information is protected by the Federal Confidentiality of Alcohol and Drug Abuse Patient Records regulations: The Federal rules restrict any use of the information to criminally investigate or prosecute any alcohol or drug abuse patient.[facility] CenterIn the event this information is protected by the Federal Confidentiality of Alcohol and Drug Abuse Patient Records regulations: The Federal rules restrict any use of the information to criminally investigate or prosecute any alcohol or drug abuse patient.[facility] CenterIn the event this information is protected by the Federal Confidentiality of Alcohol and Drug Abuse Patient Records regulations: The Federal rules restrict any use of the information to criminally investigate or prosecute any alcohol or drug abuse patient.[facility] CenterIn the event this information is protected by the Federal Confidentiality of Alcohol and Drug Abuse Patient Records regulations: The Federal rules restrict any use of the information to criminally investigate or prosecute any alcohol or drug abuse patient.[facility] CenterIn the event this information is protected by the Federal Confidentiality of Alcohol and Drug Abuse Patient Records regulations: The Federal rules restrict any use of the information to criminally investigate or prosecute any alcohol or drug abuse patient.[facility] CenterIn the event this information is protected by the Federal Confidentiality of Alcohol and Drug Abuse Patient Records regulations: The Federal rules restrict any use of the information to criminally investigate or prosecute any alcohol or drug abuse patient.[facility] CenterIn the event this information is protected by the Federal Confidentiality of Alcohol and Drug Abuse Patient Records regulations: The Federal rules restrict any use of the information to criminally investigate or prosecute any alcohol or drug abuse patient.[facility] CenterIn the event this information is protected by the Federal Confidentiality of Alcohol and Drug Abuse Patient Records regulations: The Federal rules restrict any use of the information to criminally investigate or prosecute any alcohol or drug abuse patient.[facility] CenterIn the event this information is protected by the Federal Confidentiality of Alcohol and Drug Abuse Patient Records regulations: The Federal rules restrict any use of the information to criminally investigate or prosecute any alcohol or drug abuse patient.[facility] CenterIn the event this information is protected by the Federal Confidentiality of Alcohol and Drug Abuse Patient Records regulations: The Federal rules restrict any use of the information to criminally investigate or prosecute any alcohol or drug abuse patient.[facility] CenterIn the event this information is protected by the Federal Confidentiality of Alcohol and Drug Abuse Patient Records regulations: The Federal rules restrict any use of the information to criminally investigate or prosecute any alcohol or drug abuse patient.[facility] CenterIn the event this information is protected by the Federal Confidentiality of Alcohol and Drug Abuse Patient Records regulations: The Federal rules restrict any use of the information to criminally investigate or prosecute any alcohol or drug abuse patient.[facility] CenterIn the event this information is protected by the Federal Confidentiality of Alcohol and Drug Abuse Patient Records regulations: The Federal rules restrict any use of the information to criminally investigate or prosecute any alcohol or drug abuse patient.[facility] CenterIn the event this information is protected by the Federal Confidentiality of Alcohol and Drug Abuse Patient Records regulations: The Federal rules restrict any use of the information to criminally investigate or prosecute any alcohol or drug abuse patient.[facility] CenterIn the event this information is protected by the Federal Confidentiality of Alcohol and Drug Abuse Patient Records regulations: The Federal rules restrict any use of the information to criminally investigate or prosecute any alcohol or drug abuse patient.[facility] CenterIn the event this information is protected by the Federal Confidentiality of Alcohol and Drug Abuse Patient Records regulations: The Federal rules restrict any use of the information to criminally investigate or prosecute any alcohol or drug abuse patient.[facility] CenterIn the event this information is protected by the Federal Confidentiality of Alcohol and Drug Abuse Patient Records regulations: The Federal rules restrict any use of the information to criminally investigate or prosecute any alcohol or drug abuse patient.[facility] CenterIn the event this information is protected by the Federal Confidentiality of Alcohol and Drug Abuse Patient Records regulations: The Federal rules restrict any use of the information to criminally investigate or prosecute any alcohol or drug abuse patient.[facility] CenterIn the event this information is protected by the Federal Confidentiality of Alcohol and Drug Abuse Patient Records regulations: The Federal rules restrict any use of the information to criminally investigate or prosecute any alcohol or drug abuse patient.[facility] CenterIn the event this information is protected by the Federal Confidentiality of Alcohol and Drug Abuse Patient Records regulations: The Federal rules restrict any use of the information to criminally investigate or prosecute any alcohol or drug abuse patient.[facility] CenterIn the event this information is protected by the Federal Confidentiality of Alcohol and Drug Abuse Patient Records regulations: The Federal rules restrict any use of the information to criminally investigate or prosecute any alcohol or drug abuse patient.[facility] CenterIn the event this information is protected by the Federal Confidentiality of Alcohol and Drug Abuse Patient Records regulations: The Federal rules restrict any use of the information to criminally investigate or prosecute any alcohol or drug abuse patient.[facility] CenterIn the event this information is protected by the Federal Confidentiality of Alcohol and Drug Abuse Patient Records regulations: The Federal rules restrict any use of the information to criminally investigate or prosecute any alcohol or drug abuse patient.[facility] CenterIn the event this information is protected by the Federal Confidentiality of Alcohol and Drug Abuse Patient Records regulations: The Federal rules restrict any use of the information to criminally investigate or prosecute any alcohol or drug abuse patient.[facility] CenterIn the event this information is protected by the Federal Confidentiality of Alcohol and Drug Abuse Patient Records regulations: The Federal rules restrict any use of the information to criminally investigate or prosecute any alcohol or drug abuse patient.[facility] CenterIn the event this information is protected by the Federal Confidentiality of Alcohol and Drug Abuse Patient Records regulations: The Federal rules restrict any use of the information to criminally investigate or prosecute any alcohol or drug abuse patient.[facility] CenterIn the event this information is protected by the Federal Confidentiality of Alcohol and Drug Abuse Patient Records regulations: The Federal rules restrict any use of the information to criminally investigate or prosecute any alcohol or drug abuse patient.[facility] CenterIn the event this information is protected by the Federal Confidentiality of Alcohol and Drug Abuse Patient Records regulations: The Federal rules restrict any use of the information to criminally investigate or prosecute any alcohol or drug abuse patient.[facility] CenterIn the event this information is protected by the Federal Confidentiality of Alcohol and Drug Abuse Patient Records regulations: The Federal rules restrict any use of the information to criminally investigate or prosecute any alcohol or drug abuse patient.[facility] CenterIn the event this information is protected by the Federal Confidentiality of Alcohol and Drug Abuse Patient Records regulations: The Federal rules restrict any use of the information to criminally investigate or prosecute any alcohol or drug abuse patient.[facility] CenterIn the event this information is protected by the Federal Confidentiality of Alcohol and Drug Abuse Patient Records regulations: The Federal rules restrict any use of the information to criminally investigate or prosecute any alcohol or drug abuse patient.[facility] CenterIn the event this information is protected by the Federal Confidentiality of Alcohol and Drug Abuse Patient Records regulations: The Federal rules restrict any use of the information to criminally investigate or prosecute any alcohol or drug abuse patient.[facility] CenterIn the event this information is protected by the Federal Confidentiality of Alcohol and Drug Abuse Patient Records regulations: The Federal rules restrict any use of the information to criminally investigate or prosecute any alcohol or drug abuse patient.[facility] Reason for Visit (unrecogniz ed section and [...] Transition Of Care 10/12/2024 TCM / OON [facility] dc 10/08/24 Reason Onset Date Comments Refill Request 10/20/2024 Reason Comments Orders Handicap placard Reason Onset Date Comments Transition Of Care 10/26/2024 Follow up day 18 Reason Onset Date Comments Refill Request 11/16/2024 Reason Onset Date Comments Refill Request 12/18/2024 Reason Onset Date Comments Refill Request 10/09/2024 Reason Comments Medicare Wellness Exam 6 mo Reason Comments Back Pain lower Care Teams (unrecognized sec tion and content) Durable Medical Equipment Technician Relationship Specialty Start Date End Date Khari Sunshine, METAL DRILL OPERATOR.BERNARDO, DNP [address] [facility] [place] [address] PCP - General Family Practice 01/28/21 Durable Medical Equipment Technician Relationship Specialty Start Date End Date Khari Sunshine, METAL DRILL OPERATOR.BERNARDO, DNP [address] [facility] [place] [address] PCP - General Family Practice 01/28/21 Durable Medical Equipment Technician Relationship Specialty Start Date End Date Khari Sunshine, METAL DRILL OPERATOR.BERNARDO DNP [address] [facility] [place] [address] PCP - General Family Practice 01/28/21 Durable Medical Equipment Technician Relationship Specialty Start Date End Date Khari Sunshine, METAL DRILL OPERATOR.BERNARDO, DNP [address] [facility] [place] [address] PCP - General Family Practice 01/28/21 Durable Medical Equipment Technician Relationship Specialty Start Date End Date Khari Sunshine, METAL DRILL OPERATOR.BERNARDO DNP [address] [facility] [place] [address] PCP - General Family Practice 01/28/21 Durable Medical Equipment Technician Relationship Specialty Start Date End Date Allie Stanton MD [address] [facility] [place] [address] PCP - General Family Medicine 05/28/22 Durable Medical Equipment Technician Relationship Specialty Start Date End Date Allie Stanton MD [address] [facility] [place] [address] PCP - General Family Medicine 05/28/22 Durable Medical Equipment Technician Relationship Specialty Start Date End Date Allie Stanton MD [address] [facility] [place] [address] PCP - General Family Medicine 05/28/22 Durable Medical Equipment Technician Relationship Specialty Start Date End Date Allie Stanton MD [address] [facility] [place] [address] PCP - General Family Medicine 05/28/22 Durable Medical Equipment Technician Relationship Specialty Start Date End Date Allie Stanton MD [address] [facility] [place] [address] PCP - General Family Medicine 05/28/22 Durable Medical Equipment Technician Relationship Specialty Start Date End Date Allie Stanton MD [address] [facility] [place] [address] PCP - General Family Medicine 05/28/22 Durable Medical Equipment Technician Relationship Specialty Start Date End Date Allie Stanton MD [address] [facility] [place] [address] PCP - General Family Medicine 05/28/22 Durable Medical Equipment Technician Relationship Specialty Start Date End Date Allie Stanton MD [address] [facility] [place] [address] PCP - General Family Medicine 05/28/22 Durable Medical Equipment Technician Relationship Specialty Start Date End Date Allie Stanton MD [address] [facility] [place] [address] PCP - General Family Medicine 05/28/22 Durable Medical Equipment Technician Relationship Specialty Start Date End Date Allie Stanton MD [address] [facility] [place] [address] PCP - General Family Medicine 05/28/22 Durable Medical Equipment Technician Relationship Specialty Start Date End Date Allie Stanton MD [address] [facility] [place] [address] PCP - General Family Medicine 05/28/22 Durable Medical Equipment Technician Relationship Specialty Start Date End Date Khari Sunshine METAL DRILL OPERATOR.OCEAN FREIGHT MANAGER, DNP [address] [facility] [place] [address] PCP - General Family Medicine 01/28/21 05/27/22 Durable Medical Equipment Technician Relationship Specialty Start Date End Date Khari Sunshine METAL DRILL OPERATOR.OCEAN FREIGHT MANAGER, DNP [address] [facility] [place] [address] PCP - General Family Medicine 01/28/21 05/27/22 Durable Medical Equipment Technician Relationship Specialty Start Date End Date Allie Stanton MD [address] [facility] [place] [address] PCP - General Family Medicine 05/28/22 Durable Medical Equipment Technician Relationship Specialty Start Date End Date Allie Stanton MD [address] [facility] [place] [address] PCP - General Family Medicine 05/28/22 Treva Sandoval, METAL DRILL OPERATOR.OCEAN FREIGHT MANAGER [address] [facility] [place] [address] Warehouse Engineer Family Medicine 08/27/24 Durable Medical Equipment Technician Relationship Specialty Start Date End Date Allie Stanton MD [address] [facility] [place] [address] PCP - General Family Medicine 05/28/22 Treva Sandoval APRN.OCEAN FREIGHT MANAGER [address] [place] [address] Warehouse Engineer Family Medicine 08/27/24 Imtiaz Hodge APRN.OCEAN FREIGHT MANAGER [address] [facility] [place] [address] Warehouse Engineer Family Medicine 09/05/24 Durable Medical Equipment Technician Relationship Specialty Start Date End Date Allie Stanton MD [address] [facility] [place] [address] PCP - General Family Medicine 05/28/22 Treva Sandoval APRN.OCEAN FREIGHT MANAGER [address] [facility] [place] [address] Warehouse Engineer Family Medicine 08/27/24 Imtiaz Hodge APRN.OCEAN FREIGHT MANAGER [address] [facility] [place] [address] Warehouse Engineer Family Medicine 09/05/24 Durable Medical Equipment Technician Relationship Specialty Start Date End Date Allie Stanton MD [address] [facility] [place] [address] PCP - General Family Medicine 05/28/22 Treva Sandoval APRN.OCEAN FREIGHT MANAGER [address] [facility] [place] [address] Warehouse Engineer Family Medicine 08/27/24 Imtiaz Hodge APRN.OCEAN FREIGHT MANAGER [address] [place] [address] Warehouse Engineer Family Medicine 09/05/24 Durable Medical Equipment Technician Relationship Specialty Start Date End Date Allie Stanton MD [address] [place] [address] PCP - General Family Medicine 05/28/22 Treva Sandoval APRN.OCEAN FREIGHT MANAGER [address] [place] [address] Warehouse Engineer Family Medicine 08/27/24 Imtiaz Hodge APRN.OCEAN FREIGHT MANAGER [address] [place] [address] Warehouse Engineer Family Medicine 09/05/24 Durable Medical Equipment Technician Relationship Specialty Start Date End Date Allie Stanton MD [address] [place] [address] PCP - General Family Medicine 05/28/22 Treva Sandoval APRN.OCEAN FREIGHT MANAGER [address] [place] [address] Warehouse Engineer Family Medicine 08/27/24 Imtiaz Hodge APRN.OCEAN FREIGHT MANAGER [address] [place] [address] Warehouse Engineer Family Medicine 09/05/24 Durable Medical Equipment Technician Relationship Specialty Start Date End Date Allie Stanton MD [address] [place] [address] PCP - General Family Medicine 05/28/22 Treva Sandoval APRN.OCEAN FREIGHT MANAGER [address] [place] [address] Warehouse Engineer Family Medicine 08/27/24 Imtiaz Hodge APRN.OCEAN FREIGHT MANAGER [address] [place] [address] Warehouse Engineer Family [facility] 09/05/24 Chinyere Pabon, YUDI [address] [place] [address] Primary Care Supervisor Plate Forming 10/12/24 Durable Medical Equipment Technician Relationship Specialty Start Date End Date Allie Stanton MD [address] [place] [address] PCP - General Family Medicine 05/28/22 Treva Sandoval APRN.OCEAN FREIGHT MANAGER [address] [place] [address] Warehouse Engineer [facility] 08/27/24 Imtiaz Hodge APRN.OCEAN FREIGHT MANAGER [address] [place] [address] [facility]24 Chinyere Pabon, YUDI [address] [place] [address] Primary Care Supervisor Plate Forming 10/12/24 Durable Medical Equipment Technician Relationship Specialty Start Date End Date Allie Stanton MD [address] [place] [address] PCP - General Family Medicine 05/28/22 Treva Sandoval APRN.OCEAN FREIGHT MANAGER [address] [place] [address] Warehouse Engineer Family Medicine 08/27/24 Imtiaz Hodge APRN.OCEAN FREIGHT MANAGER [address] [place] [address] Warehouse Engineer Family Medicine 09/05/24 Chinyere Pabon, YUDI [address] [place] [address] Primary Care Supervisor Plate Forming 10/12/24 Durable Medical Equipment Technician Relationship Specialty Start Date End Date Allie Stanton MD [address] [place] [address] PCP - General Family Medicine 05/28/22 Treva Sandoval METAL DRILL OPERATOR.OCEAN FREIGHT MANAGER [address] [place] [address] Warehouse Engineer Family Medicine 08/27/24 Imtiaz Hodge APRN.OCEAN FREIGHT MANAGER [address] [place] [address] Warehouse Engineer Family Medicine 09/05/24 Chinyere Pabon, YUDI [address] [place] [address] Primary Care Supervisor Plate Forming 10/12/24 Durable Medical Equipment Technician Relationship Specialty Start Date End Date Allie Stanton MD [address] [place] [address] PCP - General Family Medicine 05/28/22 Treva Sandoval, METAL DRILL OPERATOR.OCEAN FREIGHT MANAGER [address] [place] [address] Warehouse Engineer Family Medicine 08/27/24 Imtiaz Hodge METAL DRILL OPERATOR.OCEAN FREIGHT MANAGER [address] [place] [address] Warehouse Engineer Family Medicine 09/05/24 Durable Medical Equipment Technician Relationship Specialty Start Date End Date Allie Stanton MD [address] [facility] [place] [address] PCP - General Family Medicine 05/28/22 Treva Sandoval APRN.OCEAN FREIGHT MANAGER [address] [place] [address] Warehouse Engineer Family Medicine 08/27/24 Imtiaz Hodge APRN.OCEAN FREIGHT MANAGER [address] [place] [address] Warehouse Engineer Family Medicine 09/05/24 Durable Medical Equipment Technician Relationship Specialty Start Date End Date Allie Stanton MD [address] [place] [address] PCP - General Family Medicine 05/28/22 Treva Sandoval APRN.OCEAN FREIGHT MANAGER [address] [place] [address] Warehouse Engineer Family Medicine 08/27/24 Imtiaz Hodge APRN.OCEAN FREIGHT MANAGER [address] [place] [address] Warehouse Engineer Family Medicine 09/05/24 Durable Medical Equipment Technician Relationship Specialty Start Date End Date Allie Stanton MD [address] [place] [address] PCP - General Family Medicine 05/28/22 Treva Sandoval APRN.OCEAN FREIGHT MANAGER [address] [place] [address] Warehouse Engineer Family Medicine 08/27/24 Imtiaz Hodge APRN.OCEAN FREIGHT MANAGER [address] [place] [address] Warehouse Engineer Family Medicine 09/05/24 Chinyere Pabon, YUDI [address] [place] [address] Primary Care Supervisor Plate Forming 10/12/24 11/02/24 Durable Medical Equipment Technician Relationship Specialty Start Date End Date Allie Stanton MD [address] [place] [address] PCP - General Family Medicine 05/28/22 Treva Sandoval APRN.OCEAN FREIGHT MANAGER [address] [place] [address] Warehouse Engineer Family [facility] 08/27/24 Imtiaz Hodge APRN.OCEAN FREIGHT MANAGER [address] [place] [address] Warehouse Engineer [facility] 09/05/24 Durable Medical Equipment Technician Relationship Specialty Start Date End Date Allie Stanton MD [address] [place] [address] PCP - General Family Medicine 05/28/22 Imtiaz Hodge APRN.OCEAN FREIGHT MANAGER [address] [place] [address] Warehouse Engineer [facility] 09/05/24 Cathy Dugan, phone counselorClinical Rehabilitation Specialist Pulmonary Disease 01/25/25 Team Status: Active Member Role Status Dates Dr. Allie Stanton MD Primary Care Provider Active Team Status: Inactive Member Role Status Dates AMAURY Louise Primary Care Provider Active Start: January 01, 2025 End: January 01, 2025 AMAURY Louise Referring Provider Active Start: January 01, 2025 End: January 01, 2025 Dr. Jonah Bashir MD Attending Provider Active Start: January 01, 2025 End: January 01, 2025 Team Status: Inactive Member Role Status Dates Julio Pickens MD Emergency Provider Active Star t: March 03, 2025 End: March 03, 2025 Dr. Allie Stanton MD Primary Care Provider Active Start: March 03, 2025 End: March 03, 2025 Durable Medical Equipment Technician Relationship Specialty Start Date End Date Allie Stanton MD [address] [place], [place] [address] PCP - General Family Medicine 05/28/22 Imtiaz Hodge APRN.OCEAN FREIGHT MANAGER [address] [place], [place] [address] Warehouse Engineer [facility] 09/05/24 Cathy Dugan, phone counselorClinical Rehabilitation Specialist Pulmonary Disease 01/25/25 Team Status: Active Member Role Status Dates Dr. Allie Stanton MD Primary Care Provider Active Start: March 07, 2025 Dr. Valeria Henry DO Emergency Provider Active S tart: March 07, 2025 Dr. Chin Hawthorne MD Admit Provider Active Start: March 07, 2025 Dr. Chin Hawthorne MD Attending Provider Active Start: March 07, 2025 Dr. Chin Hawthorne MD Referring Provider Active Start: March 07, 2025 Durable Medical Equipment Technician Relationship Specialty Start Date End Date Allie Stanton MD [address] [place], [place] [address] PCP - General Family Medicine 05/28/22 Imtiaz Hodge, GLO.[employer] FREIGHT MANAGER [address] [place], [place] [address] [facility] 09/[facility]/24 Cathy Dugan, phone counselorClinical Rehabilitation Specialist Pulmonary Disease 01/25/25 Team Status: Inactive Member Role Status Dates Julio Pickens MD Attending Provider Active Star t: March 03, 2025 End: March 03, 2025 Julio Pickens MD Emergency Provider Active Star t: March 03, 2025 End: March 03, 2025 Dr. Allie Stanton MD Primary Care Provider Active Start: March 03, 2025 End: March 03, 2025 Team Status: Inactive Member Role Status Dates Dr. Allie Stanton MD Primary Care Provider Active Start: March 07, 2025 End: March 08, 2025 Dr. Valeria Henry DO Emergency Provider Active S tart: March 07, 2025 End: March 08, 2025 Dr. Chin Hawthorne MD Admit Provider Active Start: March 07, 2025 End: March 08, 2025 Dr. Chin Hawthorne MD Attending Provider Active Start: March 07, 2025 End: March 08, 2025 Dr. Chin Hawthorne MD Referring Provider Active Start: March 07, 2025 End: March 08, 2025 Team Status: Active Member Role Status Dates Dr. Allie Stanton MD Primary Care Provider Active Start: March 07, 2025 Dr. Valeria Henry DO Emergency Provider Active S tart: March 07, 2025 Dr. Chin Hawthorne MD Admit Provider Active Start: March 07, 2025 Dr. Chin Hawthorne MD Attending Provider Active Start: March 07, 2025 Dr. Chin Hawthorne MD Referring Provider Active Start: March 07, 2025 Dr. Chin Hawthorne MD Other Provider Active Start: March 07, 2025 Team Status: Active Member Role Status Dates Dr. Allie Stanton MD Primary Care Provider Active Start: March 08, 2025 Dr. Valeria Henry DO Emergency Provider Active S tart: March 08, 2025 Dr. Chin Hawthorne MD Admit Provider Active Start: March 08, 2025 Dr. Chin Hawthorne MD Attending Provider Active Start: March 08, 2025 Dr. Chin Hawthorne MD Referring Provider Active Start: March 08, 2025 Dr. Chin Hawthorne MD Other Provider Active Start: March 08, 2025 Goals (unrecognized section and content) Goals may be documented in a n alternate section FOR RECORDS PERTAINING TO PATIENTS WHO ARE [...] BE BASED ON THE PRIMARY CLINICAL RECORDS. [facility] [employer] [facility]. provides no warranty or guarantee of the accuracy or completeness of information in this document.
[2025-03-08 18:43] VITALS: RESP 17
--- NOTE | 2025-03-08 20:53 | HP.PCM_ITS ---
HPI - General General Date of Admission: 03/08/25 Date of Service: 03/09/25 Chief Complaint: Here for rehabilitation. HPI Narrative MARIAM DUEÑAS, is a 89 Female who presents with followin03/03/2025 [facility] ED back pain. Low back pain for weeks, recently moved, living with relative. Low back pain worse at night, Tylenol not helpful. Left low back pain, radiates to left foot, worse with walking and movement. Tramadol 50mg po x [address] lumbar spine showed lumbar disc disease. Admission for placement for rehab offered, patient declined and went home. 03/07/2025 [facility] ED back pain. Prednisone, Norflex, Tramadol, Tylenol not helpful. Unable to walk. 03/07/2025 Admit [facility]. Prednisone taper, PT/OT, MRI for low back pain. 03/08/2025 Doing well, continue PT/OT. MRI showed lumbar spinal stenosis. 03/08/2025 Admit to TCU with debility, here for rehabilitation, strengthening, prior to discharge home with family. [facility] Medical History Chronic kidney disease, stage 3b Acute diastolic (congestive) heart failure NSTEMI (non-ST elevated myocardial infarction) Anemia Diabetes Non-smoker Skin cancer Dehydration GERD (gastroesophageal reflux disease) Acute blood loss anemia Closed left hip fracture HTN (hypertension) Hypercholesteremia Type II diabetes mellitus Home Medications ?Medication ?Instructions ?Recorded ?Last Taken ?Type multivitamin with folic acid 400 1 tab PO DAILYCM abram min #30 tabs 02/11/15 03/08/25 Rx mcg tablet blood sugar diagnostic (True 10/04/24 Unknown History Metrix Glucose Test Strip) Held on 03/08/25. Instructions: Ordered aspirin 81 mg tablet,delayed 81 mg PO BREAKFAST Heart health 30 10/08/24 03/08/25 Rx release days #30 tabs carvedilol 3.125 mg tablet 3.125 mg PO BID BP 30 days #180 10/12/24 03/08/25 Rx tabs clopidogrel 75 mg tablet 75 mg PO DAILY Blood thinner 30 10/12/24 03/08/25 Rx days #90 tabs empagliflozin 10 mg tablet 10 mg PO DAILY Blood sugar 30 days 10/12/24 03/08/25 Rx (Jardiance) #90 tabs nitroglycerin 0.4 mg sublingual 0.4 mg sublingual Q5-1 5M PRN chest 01/01/25 Unknown Rx tablet pain #20 tabs omeprazole 20 mg capsule,delayed 20 mg PO QODAY GERD 0 01/01/25 03/08/25 History release furosemide 20 mg tablet 20 mg PO DAILY Fluid retenti on 03/03/25 03/08/25 History isosorbide mononitrate 30 mg 30 mg PO DAILY Chest pain 03/03/25 03/08/25 History tablet,extended release 24 hr losartan 100 mg tablet 100 mg PO DAILY BP 03/03/25 03/08/25 History amlodipine 5 mg tablet 5 mg PO DAILY BP 03/07/25 History atorvastatin 80 mg tablet 80 mg PO QHS cholesterol 03/07/25 History orphenadrine citrate 100 mg 100 mg PO BID Muscle spasm s 03/07/25 03/08/25 History tablet,extended release prednisone 10 mg tablet See Taper PO DAILY Steroid 0 03/07/25 03/08/25 History acetaminophen 500 mg tablet 1,000 mg (2 x 500 mg) PO Q 8 Pain 03/08/25 03/08/25 Rx #0 tabs lidocaine 5 % topical patch 1 patch topical DAILY pain #0 ea 03/08/25 03/08/25 Rx Allergy/AdvReac Type Severity Reaction Status Date / Time metformin Allergy Hives Verified 03/07/25 09:51 morphine AdvReac Nausea Verified 03/07/25 09:51 oxycodone (Oxycodone) AdvReac Nausea Verified 03/07/25 09:51 Family History Sister Breast cancer Colon cancer Diabetes Uncle Heart disease Brother Kidney disease Surgical History History of appendectomy History of cholecystectomy History of hip replacement History of shoulder replacement S/P ORIF (open reduction internal fixation) fracture Social History (Updated 03/08/25 @ 20:[address] Preston Willis MD) household members: family current occupational status: retired Smoking Status: Never smoker alcohol intake: never substance use type: does not use ROS Constitutional Constitutional: Reports weakness; Denies chills, fever(s) or weight gain ENT HEENT: Denies headache(s), nasal congestion or nasal discharge Cardiovascular Cardiovascular: Denies chest pain or palpitations Respiratory/Chest Respiratory/Chest: Denies cough, excessive phlegm production or shortness of breath with exertion Gastrointestinal Gastrointestinal: Denies abdominal pain, nausea or vomiting Genitourinary Genitourinary: Denies dysuria Musculoskeletal Musculoskeletal: Reports back pain; Denies joint pain or joint swelling Integumentary Integumentary: Denies rash or wounds Neurologic Neurologic: Denies focal weakness, numbness or tingling Psychiatric Psychiatric: Denies anxiety, auditory hallucinations, depression, homicidal ideation or suicidal ideation Vital Signs Vital Signs Vital Signs: 03/08/25 17:43 03/08/25 18:43 Temperature 96.6 F L Temperature Source Temporal Pulse Rate 71 Pulse Rhythm Regular Pulse Strength Normal (2+) Respiratory Rate 17 17 Respiratory Effort Normal Non-Labored Respiratory Depth Normal Respiratory Pattern Normal Blood Pressure 154/59 H Blood Pressure Mean 90 Blood Pressure Source Monitor Pulse Ox 95 Oxygen Delivery Method Room Air Room Air Weight Weight: 69.144 kg Body Mass Index (BMI) 27.8 Physical Exam Const alert General Appearance: cooperative HEENT normocephalic Eyes PERRL and EOMs intact bilaterally Neck supple, no JVD and no carotid bruits Resp normal respiratory effort, normal air movement and clear to auscultation bilaterally Cardio regular rate and regular rhythm GI normal to inspection, nondistended, normoactive bowel sounds, non-tender and non-distended Extremity normal capillary refill General Extremity: Negative for edema Skin no rashes or lesions noted General Skin Exam: no breakdown Psych affect normal Appearance: appropriate Results Lab / Micro Data 03/09/25 05:26 03/09/25 05:26 Assessment & Plan Assessment/Plan (1) Debility: (2) Intractable back pain: (3) Lumbar spinal stenosis: (4) Left sided sciatica: (5) Hyperlipidemia, unspecified: (6) Coronary artery disease: (7) GERD (gastroesophageal reflux disease): (8) Essential (primary) hypertension: (9) Chronic heart failure with preserved ejection fraction (HFpEF): (10) Type 2 diabetes mellitus with hyperglycemia: PLAN: Plan 89 year old female with below past medical history hospitalized for intractable low back pain 2/2 lumbar spinal stenosis, left sciatica, admitted to TCU with debility, here for rehabilitation, strengthening, prior to discharge home with family. * Debility - PT/OT. * Pain - Tylenol 1000mg q8, Tramadol 50mg q6 prn pain (1-10), Lidoderm 1 patch td daily. * Bowel - senna/colace 1 tablet bid, Magnesium citrate 300mL daily prn. * Adult immunization - Administer pneumonia vaccine, covid vaccine, flu vaccine as appropriate. * DVT prophylaxis - Hold, on dual antiplatelet therapy. * Hyperlipidemia - Atorvastatin 80mg qhs. * Hypertension - Coreg 3.125mg bidcm, Losartan 100mg daily, Amlodipine 5mg daily. * Coronary artery disease - Coreg 3.125mg bidcm, Losartan 100mg daily, Imdur 30mg daily, Jardiance 10mg daily, Plavix 75mg daily, Aspirin 81mg daily, NTG 0.4mg sl q5m prn. * Chronic HFpEF - Coreg 3.125mg bidcm, Losartan 100mg daily, Imdur 30mg daily, Jardiance 10mg daily, Furosemide 20mg daily. * Diabetes Mellitus II - Jardiance 10mg daily. * Nutrition - MVI 1 tablet daily. * Muscle spasm - Norflex ER 100mg bid. * GERD - Pantoprazole 20mg qod. * Low back pain - Prednisone taper, consult Dr. Dawn to consider epidural steroid injections, medications not helpful, resident does not tolerate opioids.
[2025-03-08] MEDS: Orphenadrine 100 MG Tablet PO (22:22)
[2025-03-08] MEDS: Atorvastatin Calcium 80 MG Tablet PO (22:22)
[2025-03-08] MEDS: Senna/Docusate Sodium 1 Tablet PO (22:22)
--- NOTE | 2025-03-09 05:01 | NURSING ---
Per pt. will not accept Tylenol or tramadol as ordered despite education, because it doesn't work so there is no point taking it. Written communication left for Dr. Willis
[2025-03-09 05:45] LABS: Absolute Lymphocyte Count 1.59 X10^3/uL (0.83-4.51); Absolute Neutrophil Count 6.8 X10^3/uL (2.0-7.7); Basophil# 0.02 X10^3/uL; Basophil% 0.2 % (0-1); Eosinophil# 0.01 X10^3/uL; Eosinophils% 0.1 % (0-5); Hematocrit 30.6 % (37-47); Hemoglobin 10.4 g/dL (12.0-15.0); Lymphocyte # 1.59 X10^3/ul (0.83-4.51); Lymphocyte % 17.1 % (19-41); Mean Corpuscular Hgb 30.1 pg (27.0-32.0); Mean Corpuscular Volume 88.4 fL (81-99); Mean Platelet Vol. 8.6 fl (6.2-12.0); Monocyte# 0.81 X10^3/uL; Monocyte% 8.7 % (0-10); NRBC Flagged by Analyzer 0 % (0-5); Neutrophil # 6.78 X10^3/uL (2.7-7.7); Neutrophil % 73.1 % (47-70); Platelet Count 306 K/mm3 (150-450); RBC Distribution Width CV 12.7 % (11.6-14.6); RBC Distribution Width SD 41.1 fl (35.1-43.9); Red Blood Count 3.46 M/mm3 (4.2-5.4); White Blood Count 9.3 K/mm3 (4.4-11.0)
[2025-03-09 06:13] LABS: Anion Gap 11 (5-15); BUN 37 mg/dL (4-19); BUN/Creat Ratio 31.4 RATIO (10-20); Calcium,Total 9.5 mg/dL (7.6-11.0); Carbon Dioxide 22.4 mmol/L (21.0-32.0); Chloride 105 mmol/L (98-108); Creatinine, Serum 1.18 mg/dL (0.70-1.20); EST Glomerular Filtration Rate 44 (>60); Estimated Creatinine Clearance 29.45 ml/min (50-250); Glucose 104 mg/dL (70-99); Potassium 4.3 mmol/L (3.3-5.1); Sodium Level 139 mmol/L (133-145)
[2025-03-09] MEDS: predniSONE 10 MG Tablet PO (08:49)
[2025-03-09] MEDS: Losartan Potassium 100 MG Tablet PO (08:50)
[2025-03-09] MEDS: Carvedilol 3.125 MG TABLET PO ×2 (08:50→17:47)
[2025-03-09] MEDS: Aspirin E.C. 81 MG Tablet PO (08:50)
[2025-03-09] MEDS: Multivitamins,Therapeutic Tablet 1 TABLET PO (08:50)
[2025-03-09] MEDS: Furosemide 20 MG Tablet PO (08:51)
[2025-03-09] MEDS: Orphenadrine 100 MG Tablet PO ×2 (08:51→21:44)
[2025-03-09] MEDS: Lidocaine 5% Patch 1 PATCH TOPICAL (08:51)
[2025-03-09] MEDS: Empagliflozin 10 MG Tablet PO (08:51)
[2025-03-09] MEDS: Isosorbide Mononitrate 30 MG Tablet PO (08:51)
[2025-03-09] MEDS: amLODIPine 5 MG Tablet PO (08:52)
[2025-03-09] MEDS: Senna/Docusate Sodium 1 Tablet PO ×2 (08:52→21:45)
[2025-03-09] MEDS: Clopidogrel Bisulfate 75 MG Tablet PO (08:54)
[2025-03-09 10:00] VITALS: BP 151/51; PULSE 67; RESP 18; TEMP 36.4; O2SAT 95
[2025-03-09] MEDS: oxyCODONE 5 MG Tablet 2.5 MG PO ×3 (10:05→21:51)
[2025-03-09] MEDS: Tuberculin,Purif.prot.deriv. 50 TU/ML Vial 0.1 ML ID (10:39)
--- NOTE | 2025-03-09 10:45 | NURSING ---
Called pain management consult, Dr. Dawn off today, will plan to have him see her Wednesday.
--- NOTE | 2025-03-09 12:42 | NURSING ---
Fan Mail Clerk Note; Activity Asset: Lindy Adkins is independent in her choice of daily activities. 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 She has her smartphone, was given word search puzzles, family will visits and she welcomes the therapy dog and counselor education professor. Staff will encourage social activities, remind her of weekly activities and respect her right to say no.
--- NOTE | 2025-03-09 16:54 | CASEMGMT ---
Social Work SW met with pt to complete initial assessment. SW introduced self and role of SW. Contacts were verified. Pt confirmed code status as full code. Pt confirms she has completed advance directives and SW requested they be brought in for scanning into medical record. SW educated pt to [employer] benefit and that NRD is 03/14 and continued stay is not guaranteed. Pt lives with her daughter Veronica in a two story home with first floor set up. SW will follow for dc planning. JERRI Ford
[2025-03-09] MEDS: 0.9% Saline Lock 10 ML Syringe IV (17:48)
--- NOTE | 2025-03-09 19:09 | PCM.PN.DRR ---
Documented by User: Nino Vasquez 03/09/25 19:31 TCU RX Drug Regimen Review Subjective/Objective Subjective/Objective Subjective: TCU admission note. 89 year old female with below past medical history hospitalized for intractable low back pain 2/2 lumbar spinal stenosis, left sciatica, admitted to TCU with debility, here for rehabilitation, strengthening, prior to discharge home with family. Objective: Allergies metformin Allergy (Verified 03/07/25 09:51) Hives morphine Adverse Reaction (Verified 03/07/25 09:51) Nausea oxycodone (Oxycodone) Adverse Reaction (Verified 03/07/25 09:51) Nausea Current Medications Generic Name Dose Route Start Last Admin Trade Name Freq PRN Reason Stop Dose Admin Amlodipine Besylate 5 mg 03/09/25 10:00 03/09/25 08:52 Amlodipine 5 Mg Tablet PO 5 mg DAILY CISCO Administration Protocol Aspirin 81 mg 03/09/25 08:00 03/09/25 08:50 Aspirin E.C. 81 Mg Tablet PO 81 mg BREAKFAST CISCO Administration Atorvastatin Calcium 80 mg 03/08/25 22:00 03/08/25 22:22 Atorvastatin Calcium 80 Mg Tablet PO 80 mg QHS CISCO Administration Carvedilol 3.125 mg 03/09/25 08:00 03/09/25 17:47 Carvedilol 3.125 Mg Tablet PO 3.125 mg BIDCM CISCO Administration Protocol Clopidogrel Bisulfate 75 mg 03/09/25 10:00 03/09/25 08:54 Clopidogrel Bisulfate 75 Mg Tablet PO 75 mg DAILY CISCO Administration Empagliflozin 10 mg 03/09/25 10:00 03/09/25 08:51 Empagliflozin 10 Mg Tablet PO 10 mg DAILY CISCO Administration Furosemide 20 mg 03/09/25 10:00 03/09/25 08:51 Furosemide 20 Mg Tablet PO 20 mg DAILY CISCO Administration Protocol Isosorbide Mononitrate 30 mg 03/09/25 10:00 03/09/25 08:51 Isosorbide Mononitrate 30 Mg Tablet PO 30 mg DAILY CISCO Administration Protocol Lidocaine 1 patch 03/09/25 10:00 03/09/25 08:51 Lidocaine 5% Patch TOPICAL 1 patch DAILY CISCO Administration Protocol Losartan Potassium 100 mg 03/09/25 10:00 03/09/25 08:50 Losartan Potassium 100 Mg Tablet PO 100 mg DAILY CISCO Administration Protocol Magnesium Citrate 300 ml 03/08/25 20:59 Magnesium Citrate 300 Ml PO DAILY PRN CONSTIPATION Multivitamins 1 tablet 03/09/25 08:00 03/09/25 08:50 Multivitamins,Therapeutic Tablet PO 1 tablet DAILYCM CISCO Administration Nitroglycerin 0.4 mg 03/08/25 18:04 Nitroglycerin (Inpatient Use) 0.4 Mg Tab.Subl SL Q5M PRN CARDIAC/CHEST PAIN Orphenadrine Citrate 100 mg 03/08/25 22:00 03/09/25 08:51 Orphenadrine 100 Mg Tablet PO 100 mg BID CISCO Administration Oxycodone HCl 2.5 mg 03/09/25 07:27 03/09/25 17:45 Oxycodone 5 Mg Tablet PO 2.5 mg Q4H PRN PRN Administration Pain Score 1-10 or Pre PT/OT Pantoprazole Sodium 20 mg 03/10/25 10:00 Pantoprazole Sodium 20 Mg Tablet PO QODAY CISCO Prednisone 40 mg 03/09/25 08:00 03/09/25 08:49 Prednisone 10 Mg Tablet PO 03/24/25 07:59 40 mg DAILYCM CISCO Administration Taper Senna/Docusate Sodium 1 tablet 03/08/25 22:00 03/09/25 08:52 Senna/Docusate Sodium 1 Tablet PO 1 tablet BID CISCO Administration Sodium Chloride 10 - 40 ml 03/08/25 17:58 03/09/25 17:48 0.9% Saline Lock 10 Ml Syringe IV 10 ml UD PRN Administration SALINE FLUSH Sodium Chloride 10 - 40 ml 03/08/25 18:32 0.9% Saline Lock 10 Ml Syringe IV UD PRN SALINE FLUSH Tuberculin PPD 0.1 ml 03/16/25 10:00 Tuberculin,Purif.Prot.Deriv. 50 Tu/Ml Vial ID 03/16/25 10:01 X1 ONE Problem List Type 2 diabetes mellitus with hyperglycemia (Acute) Chronic heart failure with preserved ejection fraction (HFpEF) (Acute) Essential (primary) hypertension (Acute) Hyperlipidemia, unspecified (Acute) Left sided sciatica (Acute) Lumbar spinal stenosis (Acute) Intractable back pain (Acute) Debility (Acute) Coronary artery disease (Chronic) GERD (gastroesophageal reflux disease) (Chronic) Vital Signs Temp Pulse Resp BP Pulse Ox O2 Del Method 97.6 F L 67 18 151/51 H 95 Room Air 03/09/25 10:00 03/09/25 10:00 03/09/25 10:00 03/09/25 10:00 03/09/25 10:00 03/09/25 10:00 Oxygen Delivery Method Room Air Weight: 69.144 kg Body Mass Index (BMI) 27.8 Sodium 139 mmol/L (133-145) 03/09/25 05:26 Potassium 4.3 mmol/L (3.3-5.1) 03/09/25 05:26 Chloride 105 mmol/L (98-108) 03/09/25 05:26 Carbon Dioxide 22.4 mmol/L (21.0-32.0) 03/09/25 05:26 Anion Gap 11 (5-15) 03/09/25 05:26 BUN 37 mg/dL (4-19) H 03/09/25 05:26 Creatinine 1.18 mg/dL (0.70-1.20) 03/09/25 05:26 Est GFR (MDRD) Non-Af 44 (>60) L 03/09/25 05:26 BUN/Creatinine Ratio 31.4 RATIO (10-20) H 03/09/25 05:26 Glucose 104 mg/dL (70-99) H 03/09/25 05:26 Assessment/Plan: 1. Pain: acetaminophen 1000 mg PO Q8H, oxycodone 2.5 mg PO Q4H PRN pain, lidocaine 1 patch topically daily. The patient has required 2 doses of PRN oxycodone so far this admission. Please continue to monitor for pain levels, PRN medication usage, LFTs (AST/ALT = 34/45 U/L on 10/05/24), for respiratory depression, syncope/ataxia/falls, drowsiness/dizziness, constipation, and rash at lidocaine patch application site. 2. Bowel: senna/docusate 1 tablet Po BID, magnesium citrate 300 mL PO daily PRN constipation. The patient has not required a dose of PRN magnesium citrate so far this admission and the patient's last bowel movement was documented as 03/06/25. Please continue to monitor for bowel movements, PRN medication usage, constipation, and diarrhea. The patient does not have a documented bowel movement in 3 days. Please consider administering PRN magnesium citrate if clinically indicated. 3. Hypertension/CAD/Chronic HFpEF/DMII: amlodipine 5 mg PO daily, aspirin 81 mg PO daily, carvedilol 3.125 mg PO BID, clopidogrel 75 mg PO daily, empagliflozin 10 mg PO daily, furosemide 20 mg PO daily, isosorbide mononitrate 30 mg PO daily, losartan 100 mg PO daily, nitroglycerin 0.4 mg PO Q5M PRN chest pain. Please continue to monitor for chest pain, for s/s of a heart failure exacerbation such as edema, shortness of breath or JVD, blood pressures (recent range = 125-154/51-85 mmHg), heart rates (recent range = 59-71 beats/min), for lower extremity edema, for GI distress with aspirin administration, for s/s of bleeding/excessive bruising, hemoglobin levels (Hgb = 10.4 g/dL on 03/09/25), platelet counts (Plt = 306 K/mm3 on 03/09/25), for fatigue, renal function (serum creatinine = 1.18 mg/dL with creatinine clearance ~ 29 mL/min on 03/09/25), blood glucose readings (BG = 104 mg/dL on 03/09/25), for s/s of genitourinary infections, sodium levels (Na = 139 mmol/L on 03/09/25), potassium levels (K = 4.3 mmol/L on 03/09/25), calcium levels (Ca = 9.5 mg/dL on 03/09/25), for s/s of dehydration, hemoglobin A1C levels (no recent A1C documented) and for PRN medication usage. The patient's blood pressures have been mostly elevated over the past several days, please consider increasing the patient's amlodipine to 10 mg PO daily. 4. Hyperlipidemia: atorvastatin 80 mg PO QHS. Please continue to monitor lipid levels (cholesterol = 123 mg/dL with LDL = 60 mg/dL on 10/06/24), LFTs (AST/ALT = 34/45 U/L on 10/05/24), and for myalgias. 5. Muscle spasm: orphenadrine 100 mg PO BID. Please continue to monitor for muscle spasms, dry mouth, agitation, blurred vision, constipation, dizziness, drowsiness and other anticholinergic side effects. 6. GERD: pantoprazole 20 mg PO every other day. Please continue to monitor for s/s of GERD, for diarrhea that could indicate clostridium difficile infection, and for s/s of bone resorption such as fractures. 7. Lower back pain: prednisone taper. Please continue to monitor blood pressures (recent range = 125-154/51-85 mmHg), for agitation, insomnia, blood glucose levels (BG = 104 mg/dL on 03/09/25), and for GI distress with prednisone administration. 8. Nutrition: multivitamin 1 tablet PO daily. Please continue to monitor overall nutritional status. Assessment/Plan for indications treated with psychotropic medications: NA Medical chart and medication regimen reviewed. The following medication irregularities or issues were identified: 1. Hypertension/CAD/Chronic HFpEF/DMII: amlodipine 5 mg PO daily, aspirin 81 mg PO daily, carvedilol 3.125 mg PO BID, clopidogrel 75 mg PO daily, empagliflozin 10 mg PO daily, furosemide 20 mg PO daily, isosorbide mononitrate 30 mg PO daily, losartan 100 mg PO daily, nitroglycerin 0.4 mg PO Q5M PRN chest pain. The patient's blood pressures have been mostly elevated over the past several days, please consider increasing the patient's amlodipine to 10 mg PO daily. Date Date of Note: 03/09/25 Documented by User: Dr. Preston Willis MD 03/10/25 07:15 TCU RX Drug Regimen Review Provider Comments Provider responsibility Provider Comments to Recommendations by Pharmacy Agree
[2025-03-09] MEDS: Atorvastatin Calcium 80 MG Tablet PO (21:44)
[2025-03-10 06:53] LABS: Bedside Glucose 125 mg/dL (74-106)
[2025-03-10 09:00] VITALS: BP 138/51; PULSE 63; RESP 18; TEMP 36.4; O2SAT 98
[2025-03-10] MEDS: Carvedilol 3.125 MG TABLET PO ×2 (09:17→17:17)
[2025-03-10] MEDS: predniSONE 10 MG Tablet PO (09:18)
[2025-03-10] MEDS: Losartan Potassium 100 MG Tablet PO (09:18)
[2025-03-10] MEDS: Furosemide 20 MG Tablet PO (09:18)
[2025-03-10] MEDS: Empagliflozin 10 MG Tablet PO (09:18)
[2025-03-10] MEDS: Isosorbide Mononitrate 30 MG Tablet PO (09:18)
[2025-03-10] MEDS: Multivitamins,Therapeutic Tablet 1 TABLET PO (09:19)
[2025-03-10] MEDS: Pantoprazole Sodium 20 MG Tablet PO (09:19)
[2025-03-10] MEDS: Aspirin E.C. 81 MG Tablet PO (09:19)
[2025-03-10] MEDS: Clopidogrel Bisulfate 75 MG Tablet PO (09:19)
[2025-03-10] MEDS: Orphenadrine 100 MG Tablet PO ×2 (09:19→21:58)
[2025-03-10] MEDS: amLODIPine 10 MG Tablet PO (09:20)
[2025-03-10] MEDS: Senna/Docusate Sodium 1 Tablet PO ×2 (09:20→21:58)
[2025-03-10] MEDS: Lidocaine 5% Patch 1 PATCH TOPICAL (09:21)
[2025-03-10] MEDS: oxyCODONE 5 MG Tablet 2.5 MG PO ×2 (10:47→22:02)
[2025-03-10] MEDS: 0.9% Saline Lock 10 ML Syringe IV (17:15)
[2025-03-10 17:17] VITALS: BP 130/48; PULSE 62; RESP 18; O2SAT 96
[2025-03-10] MEDS: Atorvastatin Calcium 80 MG Tablet PO (21:58)
[2025-03-11 06:23] LABS: Bedside Glucose 123 mg/dL (74-106)
[2025-03-11] MEDS: 0.9% Saline Lock 10 ML Syringe IV (08:13)
[2025-03-11] MEDS: Senna/Docusate Sodium 1 Tablet PO ×2 (08:13→20:26)
[2025-03-11] MEDS: Carvedilol 3.125 MG TABLET PO ×2 (08:13→16:45)
[2025-03-11] MEDS: predniSONE 10 MG Tablet PO (08:14)
[2025-03-11] MEDS: Aspirin E.C. 81 MG Tablet PO (08:14)
[2025-03-11] MEDS: Losartan Potassium 100 MG Tablet PO (08:14)
[2025-03-11] MEDS: Orphenadrine 100 MG Tablet PO ×2 (08:14→20:26)
[2025-03-11] MEDS: Isosorbide Mononitrate 30 MG Tablet PO (08:14)
[2025-03-11] MEDS: Furosemide 20 MG Tablet PO (08:14)
[2025-03-11] MEDS: Multivitamins,Therapeutic Tablet 1 TABLET PO (08:14)
[2025-03-11] MEDS: Empagliflozin 10 MG Tablet PO (08:14)
[2025-03-11] MEDS: Clopidogrel Bisulfate 75 MG Tablet PO (08:15)
[2025-03-11] MEDS: amLODIPine 10 MG Tablet PO (08:17)
[2025-03-11] MEDS: oxyCODONE 5 MG Tablet 2.5 MG PO ×2 (12:07→22:42)
[2025-03-11 12:59] VITALS: BP 153/57; PULSE 65; RESP 14; TEMP 36.6; O2SAT 99
[2025-03-11] MEDS: Atorvastatin Calcium 80 MG Tablet PO (20:26)
[2025-03-12 06:49] LABS: Bedside Glucose 116 mg/dL (74-106)
[2025-03-12] MEDS: Furosemide 20 MG Tablet PO (08:22)
[2025-03-12] MEDS: Pantoprazole Sodium 20 MG Tablet PO (08:22)
[2025-03-12] MEDS: Orphenadrine 100 MG Tablet PO ×2 (08:22→21:37)
[2025-03-12] MEDS: Isosorbide Mononitrate 30 MG Tablet PO (08:23)
[2025-03-12] MEDS: Multivitamins,Therapeutic Tablet 1 TABLET PO (08:23)
[2025-03-12] MEDS: Carvedilol 3.125 MG TABLET PO ×2 (08:23→16:52)
[2025-03-12] MEDS: Clopidogrel Bisulfate 75 MG Tablet PO (08:23)
[2025-03-12] MEDS: predniSONE 10 MG Tablet PO (08:23)
[2025-03-12] MEDS: Losartan Potassium 100 MG Tablet PO (08:23)
[2025-03-12] MEDS: Senna/Docusate Sodium 1 Tablet PO ×2 (08:23→21:37)
[2025-03-12] MEDS: Aspirin E.C. 81 MG Tablet PO (08:23)
[2025-03-12] MEDS: Empagliflozin 10 MG Tablet PO (08:23)
[2025-03-12] MEDS: amLODIPine 10 MG Tablet PO (08:25)
[2025-03-12 08:29] VITALS: BP 142/53; PULSE 63; RESP 16; TEMP 36.3; O2SAT 98
--- NOTE | 2025-03-12 09:03 | PCM.CONS.GEN ---
Assessment & Plan Assessment/Plan (1) Acute lumbar radiculopathy: PLAN: Plan MRI demonstrates some moderate central canal narrowing along with abutment of nerve root that is likely consistent with her radicular symptoms. Left L5 and right L4. On examination/history she has signs and symptoms concerning for possible pelvic or sacral fracture. I will order bilateral hip and pelvic xray as initial screening. On plavix (would need to be held 5-6 days) On 81mg aspirin. Will order A1C given last in the chart from years ago was significantly elevated at 8.0. HPI Consult Data Date of Consult: 03/12/25 HPI Narrative Reason for Consultation: Back pain HPI Narrative: MARIAM DUEÑAS, is a 89 F who presents with a past history of chronic kidney disease stage G3a, type 2 diabetes mellitus, hypertension, hyperlipidemia, and GERD. She was admitted for scute respiratory failure 2/2 heart failure exacerbation. She was also treated lasix and noted to have isaak on ckd. She was weaned off O2 and discharged to TCU. Pain management is consulted for back pain with radiation to the right lower extremity. The pain has been present for about 1 month and worsens with activity. It started after moving some light boxes. She was very active before this, but now has difficulty with basic mobility and ambulation. Working on PT in the TCU. Pain is 10/10 at its worst and is worst in the low back/pelvis more than the lower extremity. No red flag symptoms: saddle numbness, loss of bowel or bladder control. She had an MRI, which demonstrated moderate spinal stenosis L4-5 with right L4 nerve compression and mild to moderate canal narrowing at L3-4. There is asymmetric left L5 foraminal narrowing with bulging disc abutting the nerve within the neuroforamen. She is currently in the TCU for PT. There is no recent A1C of note in the chart. [facility] Medical History Chronic kidney disease, stage 3b Acute diastolic (congestive) heart failure NSTEMI (non-ST elevated myocardial infarction) Anemia Diabetes Non-smoker Skin cancer Dehydration GERD (gastroesophageal reflux disease) Acute blood loss anemia Closed left hip fracture HTN (hypertension) Hypercholesteremia Type II diabetes mellitus Home Medications ?Medication ?Instructions ?Recorded ?Last Taken ?Type multivitamin with folic acid 400 1 tab PO DAILYCM vitamin #30 tabs 05/25/15 06/19/25 Rx mcg tablet blood sugar diagnostic (True 10/04/24 Unknown History Metrix Glucose Test Strip) Held on 03/08/25. Instructions: Ordered aspirin 81 mg tablet,delayed 81 mg PO BREAKFAST Heart health 30 10/08/24 03/08/25 Rx release days #30 tabs carvedilol 3.125 mg tablet 3.125 mg PO BID BP 30 days #180 10/12/24 03/08/25 Rx tabs clopidogrel 75 mg tablet 75 mg PO DAILY Blood thinner 30 10/12/24 03/08/25 Rx days #90 tabs empagliflozin 10 mg tablet 10 mg PO DAILY Blood sugar 30 days 10/12/24 03/08/25 Rx (Jardiance) #90 tabs nitroglycerin 0.4 mg sublingual 0.4 mg sublingual Q5-15M PRN chest 01/01/25 Unknown Rx tablet pain #20 tabs omeprazole 20 mg capsule,delayed 20 mg PO QODAY GERD 01/01/25 03/08/25 History release furosemide 20 mg tablet 20 mg PO DAILY Fluid retention 03/03/25 03/08/25 History isosorbide mononitrate 30 mg 30 mg PO DAILY Chest pain 03/03/25 03/08/25 History tablet,extended release 24 hr losartan 100 mg tablet 100 mg PO DAILY BP 03/03/25 03/08/25 History amlodipine 5 mg tablet 5 mg PO DAILY BP 03/07/25 03/08/25 History atorvastatin 80 mg tablet 80 mg PO QHS cholesterol 03/07/25 03/07/25 History orphenadrine citrate 100 mg 100 mg PO BID Muscle spasms 03/07/25 03/08/25 History tablet,extended release prednisone 10 mg tablet See Taper PO DAILY Steroid 03/07/25 03/08/25 History acetaminophen 500 mg tablet 1,000 mg (2 x 500 mg) PO Q8 Pain 03/08/25 03/08/25 Rx #0 tabs lidocaine 5 % topical patch 1 patch topical DAILY pain #0 ea 03/08/25 03/08/25 Rx Allergy/AdvReac Type Severity Reaction Status Date / Time metformin Allergy Hives Verified 03/07/25 09:51 morphine AdvReac Nausea Verified 03/07/25 09:51 oxycodone (Oxycodone) AdvReac Nausea Verified 03/07/25 09:51 Family History Sister Breast cancer Colon cancer Diabetes Uncle Heart disease Brother Kidney disease Surgical History History of appendectomy History of cholecystectomy History of hip replacement History of shoulder replacement S/P ORIF (open reduction internal fixation) fracture Social History (Updated 03/08/25 @ 20:[address] Preston Willis MD) household members: family current occupational status: retired Smoking Status: Never smoker alcohol intake: never substance use type: does not use ROS Constitutional Constitutional: Reports weakness; Denies chills, fever(s) or weight gain ENT HEENT: Denies headache(s), nasal congestion or nasal discharge Cardiovascular Cardiovascular: Denies chest pain or palpitations Respiratory/Chest Respiratory/Chest: Denies cough, excessive phlegm production or shortness of breath with exertion Gastrointestinal Gastrointestinal: Denies abdominal pain, nausea or vomiting Genitourinary Genitourinary: Denies dysuria Musculoskeletal Musculoskeletal: Reports back pain; Denies joint pain or joint swelling Integumentary Integumentary: Denies rash or wounds Neurologic Neurologic: Denies focal weakness, numbness or tingling Psychiatric Psychiatric: Denies anxiety, auditory hallucinations, depression, homicidal ideation or suicidal ideation Physical Exam Narrative Has tenderness over the upper sacral area and into the right buttock. SLR + on the right Pain over the right Si joint. Pain with little ROM of the right hip. Motor 5/5 strength in lower extremities Sensation in tact Needs support and walker for ambulation. Antalgic gait. Const alert and no apparent distress Lab / Micro Data 03/09/25 05:26 03/09/25 05:26 Labs: Laboratory Results - last 24 hr 03/12/25 06:26: POC Glucose 116 H
[2025-03-12] MEDS: oxyCODONE 5 MG Tablet 2.5 MG PO ×3 (10:23→23:16)
--- NOTE | 2025-03-12 11:41 | NURSING ---
Offered covid vaccine, VIS provided. Resident declined.
[2025-03-12] MEDS: 0.9% Saline Lock 10 ML Syringe IV (13:18)
--- NOTE | 2025-03-12 14:29 | RAD_ITS ---
PROCEDURE: HIPS B/L MIN 2 VIEWS W/ PELVIS 03/12/2025 REASON FOR EXAM: PAIN TECHNIQUE: HIPS B/L MIN 2 VIEWS W/ PELVIS COMPARISON: None. FINDINGS: Unremarkable left femoral metallic screws. Mild osteopenia of the visualized bones. Degenerative joint disease. No fracture or dislocation is seen. No lytic or blastic bone lesion is noted. Moderate amount of fecal residue in the large bowels. Moderate diffuse spondylosis. RAD/Hips B/L min 2 views w/ Pelvis IMPRESSION: Degenerative joint disease. Unremarkable left femoral metallic screws. Reading Location[facility]
[2025-03-12 15:36] LABS: Hemoglobin A1c 6.2 % (<=5.6)
[2025-03-12 16:54] VITALS: BP 129/44; PULSE 59
[2025-03-12] MEDS: Atorvastatin Calcium 80 MG Tablet PO (21:37)
[2025-03-12 22:00] VITALS: PULSE 61; RESP 18; O2SAT 96
[2025-03-13 06:22] LABS: Bedside Glucose 118 mg/dL (74-106)
[2025-03-13] MEDS: Aspirin E.C. 81 MG Tablet PO (08:22)
[2025-03-13] MEDS: predniSONE 10 MG Tablet PO (08:22)
[2025-03-13] MEDS: Clopidogrel Bisulfate 75 MG Tablet PO (08:22)
[2025-03-13] MEDS: Carvedilol 3.125 MG TABLET PO ×2 (08:22→16:30)
[2025-03-13] MEDS: Isosorbide Mononitrate 30 MG Tablet PO (08:22)
[2025-03-13] MEDS: Senna/Docusate Sodium 1 Tablet PO ×2 (08:22→22:08)
[2025-03-13] MEDS: Multivitamins,Therapeutic Tablet 1 TABLET PO (08:22)
[2025-03-13] MEDS: Losartan Potassium 100 MG Tablet PO (08:22)
[2025-03-13] MEDS: Orphenadrine 100 MG Tablet PO ×2 (08:22→22:08)
[2025-03-13] MEDS: Furosemide 20 MG Tablet PO (08:22)
[2025-03-13] MEDS: Empagliflozin 10 MG Tablet PO (08:23)
[2025-03-13] MEDS: Lidocaine 5% Patch 1 PATCH TOPICAL (08:23)
[2025-03-13] MEDS: amLODIPine 10 MG Tablet PO (08:23)
[2025-03-13] MEDS: 0.9% Saline Lock 10 ML Syringe IV ×2 (08:26→22:10)
[2025-03-13] MEDS: oxyCODONE 5 MG Tablet 2.5 MG PO ×3 (10:57→23:29)
--- NOTE | 2025-03-13 11:26 | CON.PCM_ITS ---
Assessment & Plan Assessment/Plan (1) Acute lumbar radiculopathy: PLAN: Plan Plan to precert caudal LORI given severity of pain symptoms and debility. She has been trying home PT prior to being admitted and currently in the TCU. 1 month of efforts has not helped all that much unfortunately and she remains significantly limited in her function compared to her baseline. A1C is about 6 Pelvic/hip xrays: no evidence of fracture MRI showed evidence of L4 and L5 neuroforaminal compression and spondylosis along with moderate central canal stenosis. Will need to hold plavix 1 week (discussed with Dr. Willis). Also discussed holding risks with patient and patient's daughter. Plan to continue 81mg aspirin given risk/benefit discussion. She denies any stents. Had small SC no stents or cabg 6 months ago and was placed on blood thinners. Plan to follow up as outpatient as well. HPI Consult Data Date of Consult: 03/13/25 HPI Narrative Reason for Consultation: Back pain HPI Narrative: MARIAM DUEÑAS states he pain has remained largely unchanged compared to yesterday. Pain is in the back and buttocks. Previously was down the right leg in particular. She continues to work on PT/OT. Pelvic/hip xrays showed no evidence of fracture. She states the pain regimen has been helping, but she has been cautious about using the PRN oxycodone due to fear of becoming addicted. No other side effects noted. Pain is worsened with activity, ambulating and standing up. Also difficult to lay flat. Pain can be 10/10 in severity. [facility] Medical History Chronic kidney disease, stage 3b Acute diastolic (congestive) heart failure NSTEMI (non-ST elevated myocardial infarction) Anemia Diabetes Non-smoker Skin cancer Dehydration GERD (gastroesophageal reflux disease) Acute blood loss anemia Closed left hip fracture HTN (hypertension) Hypercholesteremia Type II diabetes mellitus Home Medications ?Medication ?Instructions ?Recorded ?Last Taken ?Type multivitamin with folic acid 400 1 tab PO DAILYCM abram min #30 tabs 02/11/15 03/08/25 Rx mcg tablet blood sugar diagnostic (True 10/04/24 Unknown History Metrix Glucose Test Strip) Held on 03/08/25. Instructions: Ordered aspirin 81 mg tablet,delayed 81 mg PO BREAKFAST Heart health 30 10/08/24 03/08/25 Rx release days #30 tabs carvedilol 3.125 mg tablet 3.125 mg PO BID BP 30 days #180 10/12/24 03/08/25 Rx tabs clopidogrel 75 mg tablet 75 mg PO DAILY Blood thinner 30 10/12/24 03/08/25 Rx days #90 tabs empagliflozin 10 mg tablet 10 mg PO DAILY Blood sugar 30 days 10/12/24 03/08/25 Rx (Jardiance) #90 tabs nitroglycerin 0.4 mg sublingual 0.4 mg sublingual Q5-1 5M PRN chest 01/01/25 Unknown Rx tablet pain #20 tabs omeprazole 20 mg capsule,delayed 20 mg PO QODAY GERD 0 01/01/25 03/08/25 History release furosemide 20 mg tablet 20 mg PO DAILY Fluid retenti on 03/03/25 03/08/25 History isosorbide mononitrate 30 mg 30 mg PO DAILY Chest pain 03/03/25 03/08/25 History tablet,extended release 24 hr losartan 100 mg tablet 100 mg PO DAILY BP 03/03/25 03/08/25 History amlodipine 5 mg tablet 5 mg PO DAILY BP 03/07/25 History atorvastatin 80 mg tablet 80 mg PO QHS cholesterol 03/07/25 History orphenadrine citrate 100 mg 100 mg PO BID Muscle spasm s 03/07/25 03/08/25 History tablet,extended release prednisone 10 mg tablet See Taper PO DAILY Steroid 0 03/07/25 03/08/25 History acetaminophen 500 mg tablet 1,000 mg (2 x 500 mg) PO Q 8 Pain 03/08/25 03/08/25 Rx #0 tabs lidocaine 5 % topical patch 1 patch topical DAILY pain #0 ea 03/08/25 03/08/25 Rx Allergy/AdvReac Type Severity Reaction Status Date / Time metformin Allergy Hives Verified 03/07/25 09:51 morphine AdvReac Nausea Verified 03/07/25 09:51 oxycodone (Oxycodone) AdvReac Nausea Verified 03/07/25 09:51 Family History Sister Breast cancer Colon cancer Diabetes Uncle Heart disease Brother Kidney disease Surgical History History of appendectomy History of cholecystectomy History of hip replacement History of shoulder replacement S/P ORIF (open reduction internal fixation) fracture Social History (Updated 03/08/25 @ 20:[address] Preston Willis MD) household members: family current occupational status: retired Smoking Status: Never smoker alcohol intake: never substance use type: does not use Physical Exam Narrative Has tenderness over the upper sacral area and into the right buttock. SLR + on the right Bilateral SI tenderness + Fabers + bilaterally Motor 5/5 strength in lower extremities Sensation in tact Needs support and walker for ambulation. Antalgic gait. Const alert and no apparent distress Lab / Micro Data 03/09/25 05:26 03/09/25 05:26 Labs: Laboratory Results - last 24 hr 03/12/25 05:26: Hemoglobin A1c 6.2 H 03/13/25 06:00: POC Glucose 118 H Imaging Radiology Impression Hip/Pelvis X-Ray 03/12/25 14:29 IMPRESSION: Degenerative joint disease. Unremarkable left femoral metallic screws. Reading Location: [facility]
[2025-03-13 13:10] VITALS: BP 157/58; PULSE 84; RESP 15; TEMP 37.1; O2SAT 95
[2025-03-13 13:51] VITALS: BMI 27.7
[2025-03-13 16:28] VITALS: BP 135/52; PULSE 60
[2025-03-13] MEDS: Atorvastatin Calcium 80 MG Tablet PO (22:08)
[2025-03-14 06:43] LABS: Bedside Glucose 115 mg/dL (74-106)
[2025-03-14 06:51] VITALS: O2SAT 94
--- NOTE | 2025-03-14 09:06 | CASEMGMT ---
Social Work IDT met with patient at bedside, then two dtrs via conference call for care plan meeting. Discussed patient's progress in PT/OT/SN. [facility] and continued stay is not guaranteed with each review. Provided pt/family with written communication of insurance process and copay coverage during stay. Pt is scheduled to receive an epidural from Dr. Dawn once precert is approved. Pt is aware that pt may be DC'd from TCU prior to that procedure. Pt's goal is to return home but will need additional assistance with LE. OT recommending AE for independence. Pt has progressed well. SW educated to skilled HHC vs OP therapy at OR and inquired about any DME needs. Pt prefers [facility] OP for PT and pt denied DME needs. SW to coordinate at OR. SW will continue to follow for DC planning. Laura Grayson LACROSSE COACH SOIL ENGINEER
--- NOTE | 2025-03-14 09:15 | CASEMGMT ---
Social Work SW completed BIMS () and PHQ-2 () for MDS assessment. Laura Grayson ENVIRONMENTAL PROTECTION INSPECTOR SOLAR INSTALLER
[2025-03-14 09:30] VITALS: BP 159/60; PULSE 62; RESP 18; TEMP 36.4; O2SAT 98
[2025-03-14] MEDS: amLODIPine 10 MG Tablet PO (09:33)
[2025-03-14] MEDS: predniSONE 10 MG Tablet PO (09:33)
[2025-03-14] MEDS: Carvedilol 3.125 MG TABLET PO ×2 (09:33→17:01)
[2025-03-14] MEDS: Clopidogrel Bisulfate 75 MG Tablet PO (09:33)
[2025-03-14] MEDS: Empagliflozin 10 MG Tablet PO (09:34)
[2025-03-14] MEDS: Furosemide 20 MG Tablet PO (09:34)
[2025-03-14] MEDS: Isosorbide Mononitrate 30 MG Tablet PO (09:34)
[2025-03-14] MEDS: Losartan Potassium 100 MG Tablet PO (09:34)
[2025-03-14] MEDS: Senna/Docusate Sodium 1 Tablet PO ×2 (09:34→20:55)
[2025-03-14] MEDS: Orphenadrine 100 MG Tablet PO ×2 (09:34→20:55)
[2025-03-14] MEDS: Pantoprazole Sodium 20 MG Tablet PO (09:34)
[2025-03-14] MEDS: Aspirin E.C. 81 MG Tablet PO (09:34)
[2025-03-14] MEDS: Multivitamins,Therapeutic Tablet 1 TABLET PO (09:34)
[2025-03-14] MEDS: oxyCODONE 5 MG Tablet 2.5 MG PO ×3 (09:43→23:13)
--- NOTE | 2025-03-14 14:57 | CHAPLAIN ---
Type of Pastoral Visit ___ Initial Visit ___ Follow-up Visit ___ On-call Visit ___ General Patient Visit ___ Spiritual Assessment ___ Family Conference ___ Bereavement ___ Rapid Response ___ Code Blue ___ Other (describe below) Pastoral Care Referral From ___ Patient ___ Family ___ Nurse ___ Physician ___ Cook Helper Preserves ___ Top Lifter ___ Other (describe below) Sacrament/Intervention ___ Active listening ___ Anointing ___ Uatsdin ___ Bereavement ___ Communion ___ Josefina exploration ___ ___ Life review ___ Prayer ___ Reconciliation ___ Sacrament of Sick ___ Supportive presence ___ Wedding ___ Other (describe below) Pastoral Comments patient was not in her room
[2025-03-14] MEDS: Atorvastatin Calcium 80 MG Tablet PO (20:54)
[2025-03-15 09:20] LABS: Bedside Glucose 146 mg/dL (74-106)
[2025-03-15 10:14] VITALS: BP 149/61; PULSE 66; RESP 17; TEMP 36.6; O2SAT 98
[2025-03-15] MEDS: Losartan Potassium 100 MG Tablet PO (10:18)
[2025-03-15] MEDS: Multivitamins,Therapeutic Tablet 1 TABLET PO (10:18)
[2025-03-15] MEDS: Isosorbide Mononitrate 30 MG Tablet PO (10:18)
[2025-03-15] MEDS: Carvedilol 3.125 MG TABLET PO ×2 (10:18→17:18)
[2025-03-15] MEDS: Empagliflozin 10 MG Tablet PO (10:18)
[2025-03-15] MEDS: predniSONE 10 MG Tablet PO (10:18)
[2025-03-15] MEDS: Aspirin E.C. 81 MG Tablet PO (10:18)
[2025-03-15] MEDS: Orphenadrine 100 MG Tablet PO ×2 (10:19→20:17)
[2025-03-15] MEDS: Furosemide 20 MG Tablet PO (10:19)
[2025-03-15] MEDS: Clopidogrel Bisulfate 75 MG Tablet PO (10:19)
[2025-03-15] MEDS: amLODIPine 10 MG Tablet PO (10:19)
[2025-03-15] MEDS: Lidocaine 5% Patch 1 PATCH TOPICAL (10:19)
[2025-03-15] MEDS: Senna/Docusate Sodium 1 Tablet PO ×2 (10:20→20:17)
[2025-03-15] MEDS: oxyCODONE 5 MG Tablet 2.5 MG PO ×2 (13:15→23:13)
[2025-03-15 20:00] VITALS: PULSE 58; RESP 16; O2SAT 96
[2025-03-15] MEDS: Atorvastatin Calcium 80 MG Tablet PO (20:17)
[2025-03-16 05:52] LABS: Absolute Neutrophil Count 11.3 X10^3/uL (2.0-7.7); Basophil# 0.01 X10^3/uL; Basophil% 0.1 % (0-1); Eosinophil# 0.03 X10^3/uL; Eosinophils% 0.2 % (0-5); Hemoglobin 10.1 g/dL (12.0-15.0); Lymphocyte % 8.2 % (19-41); Mean Corp Hgb Conc 33.7 g/dL (32-36); Mean Corpuscular Hgb 30.1 pg (27.0-32.0); Mean Corpuscular Volume 89.3 fL (81-99); Mean Platelet Vol. 9.1 fl (6.2-12.0); Monocyte# 0.79 X10^3/uL; Monocyte% 5.9 % (0-10); NRBC Flagged by Analyzer 0 % (0-5); Neutrophil # 11.33 X10^3/uL (2.7-7.7); Neutrophil % 84.8 % (47-70); Platelet Count 292 K/mm3 (150-450); RBC Distribution Width CV 13.1 % (11.6-14.6); RBC Distribution Width SD 42.5 fl (35.1-43.9); Red Blood Count 3.36 M/mm3 (4.2-5.4); White Blood Count 13.4 K/mm3 (4.4-11.0)
[2025-03-16 06:14] LABS: Anion Gap 11 (5-15); BUN 48 mg/dL (4-19); BUN/Creat Ratio 36.3 RATIO (10-20); Carbon Dioxide 19.6 mmol/L (21.0-32.0); Chloride 104 mmol/L (98-108); Creatinine, Serum 1.32 mg/dL (0.70-1.20); EST Glomerular Filtration Rate 39 (>60); Estimated Creatinine Clearance 26.19 ml/min (50-250); Glucose 173 mg/dL (70-99); Potassium 4.6 mmol/L (3.3-5.1); Sodium Level 135 mmol/L (133-145)
[2025-03-16 06:21] LABS: Bedside Glucose 157 mg/dL (74-106)
--- NOTE | 2025-03-16 08:27 | NURSING ---
Car Stower Note; MDS for 03/15/2025 Complete
[2025-03-16 08:49] VITALS: BP 156/58; PULSE 74; RESP 15; TEMP 36.7; O2SAT 96
[2025-03-16 08:54] VITALS: O2SAT 96
[2025-03-16] MEDS: Carvedilol 3.125 MG TABLET PO ×2 (08:54→17:17)
[2025-03-16] MEDS: Aspirin E.C. 81 MG Tablet PO (08:54)
[2025-03-16] MEDS: Losartan Potassium 100 MG Tablet PO (08:54)
[2025-03-16] MEDS: Multivitamins,Therapeutic Tablet 1 TABLET PO (08:54)
[2025-03-16] MEDS: amLODIPine 10 MG Tablet PO (08:54)
[2025-03-16] MEDS: guaiFENesin Dm 10 ML UDC PO ×3 (08:54→23:02)
[2025-03-16] MEDS: Orphenadrine 100 MG Tablet PO ×2 (08:54→19:42)
[2025-03-16] MEDS: Furosemide 20 MG Tablet PO (08:54)
[2025-03-16] MEDS: predniSONE 10 MG Tablet PO (08:54)
[2025-03-16] MEDS: Clopidogrel Bisulfate 75 MG Tablet PO (08:55)
[2025-03-16] MEDS: Pantoprazole Sodium 20 MG Tablet PO (08:55)
[2025-03-16] MEDS: Isosorbide Mononitrate 30 MG Tablet PO (08:55)
[2025-03-16] MEDS: Senna/Docusate Sodium 1 Tablet PO ×2 (08:55→19:42)
[2025-03-16] MEDS: Empagliflozin 10 MG Tablet PO (08:55)
[2025-03-16] MEDS: Tuberculin,Purif.prot.deriv. 50 TU/ML Vial 0.1 ML ID (11:19)
[2025-03-16] MEDS: oxyCODONE 5 MG Tablet 2.5 MG PO ×2 (11:25→23:01)
--- NOTE | 2025-03-16 11:33 | CASEMGMT ---
Social Work Insurance issued LCD 03/18, DC 03/19. SW spoke with pt at [facility] to inform of DC date and educated to appeal rights. Pt requested to speak with dtr and contacted her via conference call. Dtr agreeable to pt DC home on 03/19. Pt's dtr, Veronica, will be staying with pt in the meantime. Pt agreed to DC. SW provided NOMNC. SW confirmed goal is OP therapy. Dtr prefers pt starts with [facility], especially since pt has increased pain and awaiting epidural. Pt agreed. SW offered to provide pt/dtr with list of [facility] agencies of choices, but dtr denied stating she already received a list prior to admission to TCU and first choice is [facility]. SW to place referral. Confirmed no DME needs and dtr can transport. - MAX phoned referral to [facility] PT/OT Plan: DC home with dtr 03/19, [facility] PT/OT Laura BERNALW
--- NOTE | 2025-03-16 13:54 | RAD_ITS ---
PROCEDURE: CHEST PA AND LATERAL 03/16/2025 REASON FOR EXAM: MOIST COUGH. TECHNIQUE: CHEST PA AND LATERAL COMPARISON: Prior study dated October 04, 2024. FINDINGS: Hardware: Status post left reverse shoulder replacement. Heart: Heart size upper limits of normal Mediastinum: Hiatal hernia. Atherosclerotic calcification of the aortic arch. Lungs: Hyperinflation. Stable mild increased markings at the lung bases suggestive of scarring. Bones: Minimal loss of height of a mid dorsal vertebrae. RAD/Chest PA and Lateral IMPRESSION: Hyperinflation. No acute infiltrate is seen. Reading Location: [id number]
--- NOTE | 2025-03-16 13:55 | PCM.DC.SUM ---
Providers Date of Admission: 03/08/25 Primary Care Physician: Dr. Jose Alberto Stanton MD Consultations 03/09/25 07:21 Consult: Pain Management Routine Consulting Provider: Chin Dawn Reason for Consult: Intractable back pain, lumbar spinal stenosis. EMERGENT Consult: No MD Notified: Yes Date Notified: 03/09/25 Time Notified: 10:44 Method of Notification: Answering Service Reason For Visit: BACK PAIN Diagnosis Discharge Diagnosis (1) Acute lumbar radiculopathy: Status: Acute Code(s): M54.16 - Radiculopathy, lumbar region Plan 89 year old female with below past medical history hospitalized for intractable low back pain 2/2 lumbar spinal stenosis, left sciatica, admitted to TCU with debility, here for rehabilitation, strengthening, prior to discharge home with family. Debility - PT/OT. Pain - Tylenol 1000mg q8, Tramadol 50mg q6 prn pain (1-10), Lidoderm 1 patch td daily. Bowel - senna/colace 1 tablet bid, Magnesium citrate 300mL daily prn. Adult immunization - Administer pneumonia vaccine, covid vaccine, flu vaccine as appropriate. DVT prophylaxis - Hold, on dual antiplatelet therapy. Hyperlipidemia - Atorvastatin 80mg qhs. Hypertension - Coreg 3.125mg bidcm, Losartan 100mg daily, Amlodipine 5mg daily. Coronary artery disease - Coreg 3.125mg bidcm, Losartan 100mg daily, Imdur 30mg daily, Jardiance 10mg daily, Plavix 75mg daily, Aspirin 81mg daily, NTG 0.4mg sl q5m prn. Chronic HFpEF - Coreg 3.125mg bidcm, Losartan 100mg daily, Imdur 30mg daily, Jardiance 10mg daily, Furosemide 20mg daily. Diabetes Mellitus II - Jardiance 10mg daily. Nutrition - MVI 1 tablet daily. Muscle spasm - Norflex ER 100mg bid. GERD - Pantoprazole 20mg qod. Low back pain - Prednisone taper, consult Dr. Dawn to consider epidural steroid injections, medications not helpful, resident does not tolerate opioids. Medications at Discharge Home Medications multivitamin with folic acid 400 mcg tablet 1 tab PO DAILYCM vitamin #30 tabs 02/11/15 blood sugar diagnostic (True Metrix Glucose Test Strip) 10/04/24 Held on 03/08/25. Instructions: MD Ordered aspirin 81 mg tablet,delayed release 81 mg PO BREAKFAST Heart health 30 days #30 tabs 10/08/24 carvedilol 3.125 mg tablet 3.125 mg PO BID BP 30 days #180 tabs 10/12/24 clopidogrel 75 mg tablet 75 mg PO DAILY Blood thinner 30 days #90 tabs 10/12/24 empagliflozin 10 mg tablet (Jardiance) 10 mg PO DAILY Blood sugar 30 days #90 tabs 10/12/24 nitroglycerin 0.4 mg sublingual tablet 0.4 mg sublingual Q5-15M PRN chest pain #20 tabs 01/01/25 omeprazole 20 mg capsule,delayed release 20 mg PO QODAY GERD 01/01/25 furosemide 20 mg tablet 20 mg PO DAILY Fluid retention 03/03/25 isosorbide mononitrate 30 mg tablet,extended release 24 hr 30 mg PO DAILY Chest pain 03/03/25 losartan 100 mg tablet 100 mg PO DAILY BP 03/03/25 amlodipine 5 mg tablet 5 mg PO DAILY BP 03/07/25 atorvastatin 80 mg tablet 80 mg PO QHS cholesterol 03/07/25 doxycycline monohydrate 100 mg capsule 100 mg PO BID 4 days #8 caps 03/16/25 lidocaine 5 % topical patch 1 patch topical DAILY 30 days #30 ea 03/16/25 orphenadrine citrate 100 mg tablet,extended release 100 mg PO BID 30 days #60 tabs 03/16/25 oxycodone 5 mg tablet 2.5 mg (1/2 x 5 mg) PO Q4H PRN PRN Pain Score 1-10 Or Pre Pt/Ot 7 days #21 tabs 03/16/25 sennosides 8.6 mg-docusate sodium 50 mg tablet (Stimulant Laxative Plus) 1 tab PO BID 30 days #60 tabs 03/16/25 Hospital Course Operations None Procedures None Summary of Care Provided Minutes Spent on Discharge: 35 Hospital Course: 89 year old female with below past medical history hospitalized for intractable low back pain 2/2 lumbar spinal stenosis, left sciatica, admitted to TCU with debility, here for rehabilitation, strengthening, prior to discharge home with family. Dr. Dawn attempting precertification for epidural steroid injection. 03/16/2025 Chest X-ray, Doxycycline 100mg bid x 7 days for bronchitis. Discharge home with daughter 03/19/2025, [facility] PT/OT. Physical Exam Const alert General Appearance: cooperative HEENT normocephalic Eyes PERRL and EOMs intact bilaterally Neck supple, no JVD and no carotid bruits Resp normal respiratory effort, normal air movement and clear to auscultation bilaterally Auscultation: rhonchi Cardio regular rate and regular rhythm GI normal to inspection, nondistended, normoactive bowel sounds, non-tender and non-distended Extremity normal capillary refill General Extremity: Negative for edema Skin no rashes or lesions noted General Skin Exam: no breakdown Psych affect normal Appearance: appropriate Weight / BMI Weight Weight: 68.402 kg Body Mass Index (BMI) 27.7 ABG / Lab / Microbiology Data 03/16/25 05:21 03/16/25 05:21 Laboratory: Laboratory Results - last 24 hr 03/16/25 05:21: WBC 13.4 H, RBC 3.36 L, Hgb 10.1 L, Hct 30.0 L, MCV 89.3, MCH 30.1, MCHC 33.7, RDW Std Deviation 42.5, RDW Coeff of Najma 13.1, Plt Count 292, MPV 9.1, Immature Gran % (Auto) 0.800, Neut % (Auto) 84.8 H, Lymph % (Auto) 8.2 L, [place] % (Auto) 5.9, Eos % (Auto) 0.2, Baso % (Auto) 0.1, Absolute Neuts (auto) 11.3 H, Absolute Lymphs (auto) 1.10, Nucleated RBC % 0, Sodium 135, Potassium 4.6, Chloride 104, Carbon Dioxide 19.6 L, Anion Gap 11, BUN 48 H, Creatinine 1.32 H, Estim Creat Clear Calc 26.19 L, Est GFR (MDRD) Non-Af 39 L, BUN/Creatinine Ratio 36.3 H, Glucose 173 H, Calcium 9.0 03/16/25 05:56: POC Glucose 157 H D/C Instructions Discharge Diet: No restrictions Discharge Activity: Return to Normal Activity, May Shower and Use Walker Weight Bearing Status: Weight bearing as tolerated Call your doctor if you observe: Fever of 101 or Higher, Inability to urinate, Inability to have a bowel movement, Shortness of breath, Dizziness, Fainting spells, Swelling in the ankles, Chest pain and Uncontrolled pain DC O2, CPAP, BIPAP Needs Home O2 Discharge instructions: No Additional Instructions: Discharge home with daughter 03/19/2025, [facility] PT/OT. Meaningful Use Info Meaningful Use Meaningful Use Diagnoses (Choose all that apply): None applicable Ischemic Stroke Statin Dosing Therapy Reference: STATIN DOSE THERAPY REFERENCE: * Patients > 75 years receive moderate or high dose statin therapy. * Patients 75 years or YOUNGER should receive HIGH intensity statin dose unless contraindicated. You will be required to document reason for non-treatment if statin daily dose does not meet guidelines. HIGH DOSE STATIN THERAPY DAILY Atorvastatin > than or = to 40 mg Rosuvastatin > than or = to 20 mg Amlodipine + Atorvastatin > than or = to 2.5/40 mg Ezetimibe + Simvastatin 10/80 mg Simvastatin 80mg Discharge Plan Admission Admit Date/Time: 03/08/25 17:34 Primary Reason for Your Visit: Debility. Attending Provider: Preston Willis Chi Primary Care Provider: Jose Alberto Stanton Consulting Providers: Chin Dawn Instructions Additional Instructions / Restrictions: Discharge home with daughter 03/19/2025, [facility] PT/OT. Discharge Orders/Prescriptions Prescriptions: New sennosides-docusate sodium [Stimulant Laxative Plus] 8.6-50 mg Tablet 1 tab PO BID 30 Days Qty: 60 0RF doxycycline monohydrate 100 mg Capsule 100 mg PO BID 4 Days Qty: 8 0RF lidocaine 5 % Adhesive Patch,Medicated 1 patch topical DAILY 30 Days Qty: 30 0RF Protocol: *Topical Application Instructions APPLICATION INSTRUCTIONS: Apply to lumbar area of back orphenadrine citrate 100 mg Tablet Extended Release 100 mg PO BID 30 Days Qty: 60 0RF oxycodone 5 mg Tablet 2.5 mg PO Q4H PRN PRN (Reason: Pain Score 1-10 Or Pre Pt/Ot) 7 Days Qty: 21 0RF Continued carvedilol 3.125 mg tablet 3.125 mg PO BID 30 Days Qty: 180 3RF Jardiance 10 mg tablet 10 mg PO DAILY 30 Days Qty: 90 3RF clopidogrel 75 mg tablet 75 mg PO DAILY 30 Days Qty: 90 3RF Rx Instructions: Discontinue if platelet count drops less than 50,000 or hemoglobin less than 8 g% omeprazole 20 mg capsule,delayed release(DR/EC) 20 mg PO QODAY nitroglycerin 0.4 mg tablet, sublingual 0.4 mg sublingual Q5-15M PRN (Reason: chest pain) Qty: 20 3RF Rx Instructions: do not exceed 3 doses per episode multivitamin with folic acid 1 TABLET tablet 1 tab PO DAILYCM Qty: 30 0RF Patient Comments: supplement aspirin 81 mg Tablet,Delayed Release (Dr/Ec) 81 mg PO BREAKFAST 30 Days Qty: 30 4RF furosemide 20 mg tablet 20 mg PO DAILY isosorbide mononitrate 30 mg tablet extended release 24 hr 30 mg PO DAILY losartan 100 mg tablet 100 mg PO DAILY atorvastatin 80 mg tablet 80 mg PO QHS amlodipine 5 mg tablet 5 mg PO DAILY Discontinued prednisone 10 mg tablet See Taper PO DAILY Taper: Prednisone Taper 40 mg WITH BREAKFAST for 5 Days 20 mg WITH BREAKFAST for 5 Days 10 mg WITH BREAKFAST for 5 Days Rx Instructions: SEE TAPER orphenadrine citrate 100 mg tablet extended release 100 mg PO BID acetaminophen 500 mg Tablet 1,000 mg PO Q8 Qty: 0 0RF lidocaine 5 % Adhesive Patch,Medicated 1 patch topical DAILY Qty: 0 0RF Protocol: *Topical Application Instructions APPLICATION INSTRUCTIONS: lumbar No Action (DME) True Metrix Glucose Test Strip Strip MISCELLANEOUS DAILY Referrals / Follow Up: Jose Alberto Stanton MD [Primary Care Provider] - Disposition Disposition (needs filled in before D/C Order can be placed): Home Health Service
[2025-03-16] MEDS: Doxycycline 100 MG CAPSULE PO ×2 (15:19→19:40)
--- NOTE | 2025-03-16 15:41 | CHAPLAIN ---
Type of Pastoral Visit ___ Initial Visit _x__ Follow-up Visit ___ On-call Visit ___ General Patient Visit ___ Spiritual Assessment ___ Family Conference ___ Bereavement ___ Rapid Response ___ Code Blue ___ Other (describe below) Pastoral Care Referral From _x__ Patient ___ Family ___ Nurse ___ Physician ___ Lean Specialist ___ Hook Tender ___ Other (describe below) Sacrament/Intervention _x__ Active listening ___ Anointing ___ Latter Day ___ Bereavement ___ Communion ___ Josefina exploration ___ _x__ Life review _x__ Prayer ___ Reconciliation ___ Sacrament of Sick _x__ Supportive presence ___ Wedding ___ Other (describe below) Pastoral Comments this was a follow up to visit made last week in the [facility] for patient; pt still is having some back pain and now a cough; pt reports that it is insurance that is slow to approve procedures and that it will cost them a whole lot more now; pt is frustrated by the insurance company and that she has to wait for better relief from her pain; time given to listen, reflect, and offer presence; pt is encouraged to keep focus on the good things and she welcomes a prayer for support; pt does have family close by that are available to help her
[2025-03-16 17:20] VITALS: BP 143/53; PULSE 61
[2025-03-16 19:38] VITALS: BP 131/48; PULSE 64; RESP 16; TEMP 36.4; O2SAT 96
[2025-03-16] MEDS: Atorvastatin Calcium 80 MG Tablet PO (19:41)
[2025-03-16 23:13] VITALS: PULSE 64; RESP 17; O2SAT 97
[2025-03-17 06:23] LABS: Bedside Glucose 131 mg/dL (74-106)
[2025-03-17 08:43] VITALS: BP 150/63; PULSE 71; RESP 17; TEMP 36.7; O2SAT 96
[2025-03-17] MEDS: Carvedilol 3.125 MG TABLET PO ×2 (08:45→17:22)
[2025-03-17] MEDS: Aspirin E.C. 81 MG Tablet PO (08:45)
[2025-03-17] MEDS: Losartan Potassium 100 MG Tablet PO (08:46)
[2025-03-17] MEDS: predniSONE 10 MG Tablet PO (08:46)
[2025-03-17] MEDS: Multivitamins,Therapeutic Tablet 1 TABLET PO (08:46)
[2025-03-17] MEDS: Doxycycline 100 MG CAPSULE PO ×2 (08:47→22:24)
[2025-03-17] MEDS: Furosemide 20 MG Tablet PO (08:47)
[2025-03-17] MEDS: Isosorbide Mononitrate 30 MG Tablet PO (08:47)
[2025-03-17] MEDS: Empagliflozin 10 MG Tablet PO (08:47)
[2025-03-17] MEDS: Orphenadrine 100 MG Tablet PO ×2 (08:48→22:24)
[2025-03-17] MEDS: amLODIPine 10 MG Tablet PO (08:48)
[2025-03-17] MEDS: Senna/Docusate Sodium 1 Tablet PO ×2 (08:49→22:24)
[2025-03-17] MEDS: guaiFENesin Dm 10 ML UDC PO ×2 (08:56→18:32)
[2025-03-17] MEDS: oxyCODONE 5 MG Tablet 2.5 MG PO ×2 (08:56→22:23)
[2025-03-17 17:21] VITALS: BP 135/52; PULSE 66
[2025-03-17] MEDS: Atorvastatin Calcium 80 MG Tablet PO (22:24)
[2025-03-18 06:24] LABS: Bedside Glucose 131 mg/dL (74-106)
[2025-03-18] MEDS: Carvedilol 3.125 MG TABLET PO ×2 (09:01→16:50)
[2025-03-18] MEDS: Aspirin E.C. 81 MG Tablet PO (09:01)
[2025-03-18] MEDS: Multivitamins,Therapeutic Tablet 1 TABLET PO (09:01)
[2025-03-18] MEDS: predniSONE 10 MG Tablet PO (09:01)
[2025-03-18 09:06] VITALS: BP 143/52; PULSE 75; RESP 18; TEMP 36.6; O2SAT 97
[2025-03-18] MEDS: Pantoprazole Sodium 20 MG Tablet PO (10:45)
[2025-03-18] MEDS: Senna/Docusate Sodium 1 Tablet PO ×2 (10:45→21:57)
[2025-03-18] MEDS: Empagliflozin 10 MG Tablet PO (10:46)
[2025-03-18] MEDS: amLODIPine 10 MG Tablet PO (10:46)
[2025-03-18] MEDS: Isosorbide Mononitrate 30 MG Tablet PO (10:46)
[2025-03-18] MEDS: Furosemide 20 MG Tablet PO (10:46)
[2025-03-18] MEDS: Losartan Potassium 100 MG Tablet PO (10:46)
[2025-03-18] MEDS: Doxycycline 100 MG CAPSULE PO ×2 (10:46→21:57)
[2025-03-18] MEDS: Orphenadrine 100 MG Tablet PO ×2 (10:46→21:57)
[2025-03-18] MEDS: guaiFENesin Dm 10 ML UDC PO ×2 (10:50→21:57)
[2025-03-18] MEDS: oxyCODONE 5 MG Tablet 2.5 MG PO ×2 (13:40→21:56)
[2025-03-18] MEDS: Atorvastatin Calcium 80 MG Tablet PO (21:57)
[2025-03-18 22:01] VITALS: RESP 18
[2025-03-19 03:30] VITALS: RESP 18
[2025-03-19 06:21] LABS: Bedside Glucose 134 mg/dL (74-106)
[2025-03-19 09:45] VITALS: BP 159/59; PULSE 67; RESP 16; TEMP 36.6; O2SAT 97
[2025-03-19] MEDS: Aspirin E.C. 81 MG Tablet PO (09:49)
[2025-03-19] MEDS: Losartan Potassium 100 MG Tablet PO (09:49)
[2025-03-19] MEDS: Doxycycline 100 MG CAPSULE PO (09:49)
[2025-03-19] MEDS: Multivitamins,Therapeutic Tablet 1 TABLET PO (09:49)
[2025-03-19] MEDS: Empagliflozin 10 MG Tablet PO (09:49)
[2025-03-19] MEDS: Isosorbide Mononitrate 30 MG Tablet PO (09:49)
[2025-03-19] MEDS: Carvedilol 3.125 MG TABLET PO (09:49)
[2025-03-19] MEDS: predniSONE 10 MG Tablet PO (09:49)
[2025-03-19] MEDS: Orphenadrine 100 MG Tablet PO (09:50)
[2025-03-19] MEDS: Lidocaine 5% Patch 1 PATCH TOPICAL (09:50)
[2025-03-19] MEDS: Furosemide 20 MG Tablet PO (09:50)
[2025-03-19] MEDS: amLODIPine 10 MG Tablet PO (09:50)
[2025-03-19] MEDS: Senna/Docusate Sodium 1 Tablet PO (09:50)
[2025-03-19] MEDS: guaiFENesin Dm 10 ML UDC PO (11:31)
[2025-03-19] MEDS: oxyCODONE 5 MG Tablet 2.5 MG PO (11:32)
[2025-03-19 12:37] VITALS: BP 141/65; PULSE 71; RESP 17; TEMP 36.4; O2SAT 93
--- NOTE | 2025-03-20 09:10 | MDS.RN ---
Information for the MDS was obtained from review of the clinical record, interview of resident, staff, and direct observation of resident?s care.
== END 2025-03-19 13:10 | disposition home health service (06) | DRG 552 ==
PROVIDERS: Anesthesiology; Admitting Provider Family Medicine Geriatric Medicine; PCP Family Medicine; Referring Provider Family Medicine Geriatric Medicine; Visit Provider Family Medicine Geriatric Medicine
DX: M48.061 Spinal stenosis, lumbar region without neurogenic claudication (principal); I50.32 Chronic diastolic (congestive) heart failure; I13.0 Hypertensive heart and chronic kidney disease with heart failure and stage 1 through stage 4 chronic kidney disease, or unspecified chronic kidney disease; E11.22 Type 2 diabetes mellitus with diabetic chronic kidney disease; N18.32 Chronic kidney disease, stage 3b; E11.65 Type 2 diabetes mellitus with hyperglycemia; K21.9 Gastro-esophageal reflux disease without esophagitis; M54.42 Lumbago with sciatica, left side; E78.00 Pure hypercholesterolemia, unspecified; I25.10 Atherosclerotic heart disease of native coronary artery without angina pectoris; J40 Bronchitis, not specified as acute or chronic; M51.16 Intervertebral disc disorders with radiculopathy, lumbar region; Z79.84 Long term (current) use of oral hypoglycemic drugs; M51.369 Other intervertebral disc degeneration, lumbar region without mention of lumbar back pain or lower extremity pain; Z79.899 Other long term (current) drug therapy
CPT/HCPCS: 36415; 71046; 73521; 80048; 82962; 83036; 85025; 97110; 97116; 97162; 97166; 97530; 97535; 97802; A4216

== ENCOUNTER 2025-06-16 07:09 | Emergency (ER) | payer MEDICARE, SELFPAY ==
--- OUTSIDE RECORDS SUMMARY | 2025-06-15 11:25 | XMS RPT_ITS ---
Author Name Auto Generated Organization [facility] Care Team Providers Care Air Hole Driller Name Role Phone KRYSTEN KNOTT, WAYLON Attending Unavailable GODFREY KNOTT, NISHA Gagnon III Primary Care UnavailALLIE James Primary Care Unavailable TREVA SANDOVAL Attending UnavailALLIE James Primary Care Unavailable TREVA SANDOVAL Attending Unavailabl ALLIE Lynn Primary Care Unavailable TREVA SANDOVAL Referring Unavailabl TREVA Campbell Attending UnavailALLIE James Primary Care Unavailable ALLIE CHACON Primary Care Unavailable TREVA SANDOVAL Referring Unavailabl ALLIE Lynn Primary Care Unavailable TREVA SANDOVAL Referring UnavailIMTIAZ Rivera Attending Unavailable ALLIE CHACNO Primary Care Unavailable ALLIE CHACON Attending Unavailable ALLIE CHACON Primary Care Unavailable XU VARELA Attending Unavailable ALLIE CHACON Primary Care Unavailable ALLIE CHACON Attending Unavailable ALLIE CHACON Primary Care Unavailable SELF Referring Unavailable SAMANTHA GREEN Attending Unavailable ALLIE CHACON Primary Care Unavailable TREVA SANDOVAL Referring UnavailALLIE James Primary Care Unavailable ALLIE CHACON Primary Care Unavailable TREVA SANDOVAL Attending Unavailabl e PROBLEMS DATE TYPE CONDITION / CODE ATTENDING STATUS [facility] 06/15/2025 Active Pain, Back / UNK(Unknown) CECI GREEN Active [facility] 05/22/2025 Active Acute pain of ana th shoulders / M25.511(ICD-10) ALLIE CHACON Active [facility] 05/22/2025 Active Acute pain of ana th shoulders / M25.512(ICD-10) ALLIE CHACON Active [facility] 03/21/2025 Active Degeneration of intervertebral disc of lumbar region with discogenic back pain and lower extremity pain / M51.362(ICD-10) XU VARELA Active [facility] 03/21/2025 Active Community acquir ed pneumonia, unspecified laterality / J18.9(ICD-10) XU VARELA Active [facility] 03/05/2025 Active Stage 3b chronic kidney disease (HCC) / N18.32(ICD-10) ALLIE CHACON Active [facility] 03/05/2025 Active Acute midline lo w back pain without sciatica / M54.50(ICD-10) ALLIE CHACON Active [facility] 01/29/2025 Active Skin lesion / L98.9(ICD-10) IMTIAZ HODGE Active [facility] 01/29/2025 Active Screening for de pression / Z13.31(ICD-10) IMTIAZ HODGE Active [facility] 01/29/2025 Active Encounter for sc reening examination for other mental health and behavioral disorders / Z13.39(ICD-10) IMTIAZ HODGE Active [facility] 02/21/2016 Active Hyperlipidemia L DL goal <100 / E78.5(ICD-10) NA Active [facility] 01/23/2025 Active Essential hypert ension, malignant / I10(ICD-10) NA Active [facility] 09/15/2021 Active 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 3 chronic kidney disease, without long-term current use of insulin (HCC) / E11.22(ICD-10) TREVA SANDOVAL Active [facility] 09/15/2021 Active 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 3 chronic kidney disease, without long-term current use of insulin (HCC) / N18.30(ICD-10) TREVA SANDOVAL Active [facility] 10/11/2024 Active Hospital dischar ge follow-up / Z09(ICD-10) TREVA SANDOVAL Active [facility] 10/11/2024 Active Elevated troponi n / R79.89(ICD-10) TREVA SANDOVAL Active [facility] 10/10/2024 Active Congestive heart failure, unspecified HF chronicity, unspecified heart failure type (HCC) / I50.9(ICD-10) NA Active [facility] 07/30/2010 Active Essential hypert ension, benign / I10(ICD-10) TREVA SANDOVAL Active [facility] 08/28/2024 Active Stage 3 chronic kidney disease, unspecified whether stage 3a or 3b CKD (HCC) / N18.30(ICD-10) TREVA SANDOVAL Active [facility] 09/28/2017 Active Gastroesophageal reflux disease without esophagitis / K21.9(ICD-10) TREVA SANDOVAL Active [facility] PROCEDURES No Procedure Records Found RESULTS PROGRESS Observed: 06/15/2025 11:49 AM Status: COMPLETED Source: [facility] HNO ID: [id number] Author: SAMANTHA GREEN PA-C Service: ? Author Type: Physician Stone Paver Type: Progress Notes Filed: 06/15/2025 12:55 Note Text: Chief Complaint Patient presents with: Pain, Back HPI The patient is an 89-year-old female presenting for evaluation of refractory back and shoulder pain and adjustment of pain medications. Accompanied by her daughters, who are providing history. Chronic Back Pain: - Lucille Thurman has persistent back pain, exacerbated at night. - Currently taking tizanidine and 1500 mg of Tylenol TID with minimal relief. - Previously found relief with orphenadrine in the hospital, but it was not covered by insurance. - Tried oxycodone 2.5 mg (half of a 5 mg tablet) with no significant relief. - Denies taking ibuprofen due to concerns about kidney function. Sleep Disturbances: - Difficulty sleeping due to pain; Lucille wakes up after 2-3 hours of sleep. - Considering Tylenol PM to aid sleep. - Denies anxiety; Lucille's daughter believes anxiety may be contributing to sleep issues. Past medical history, appointments, medications, allergies reviewed. [...] of fall Hyperlipidemia Inflammatory disease of breast custodial (current) use 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 custodial (current) use of oral hypoglycemic drugs Lumbar [...] on File Prior to Visit Medication Sig senna-docusate (SENNA-S) 8.6-50 mg per tablet Take 1 tablet by mouth two times a day. atorvastatin (LIPITOR) 40 mg tablet Take 1 tablet by mouth daily at bedtime. For cholesterol. dextran 70-hypromellose (NATURAL BALANCE TEARS) 0.1-0.3 % ophthalmic solution Use 1 drop in both eyes as needed. acetaminophen (TYLENOL) 325 mg tablet Take 2 tablets by mouth every 6 hours as needed for pain. oxyCODONE IR (ROXICODONE) 5 mg immediate release tablet Take 2.5 mg by mouth every 4 hours as needed for pain. blood sugar diagnostic (BLOOD GLUCOSE TEST) test [...] Take 1 tablet by mouth once daily. (Patient taking differently: Take 10 mg by mouth once daily.) carvedilol (COREG) 3.125 mg tablet Take 3.125 mg by mouth two times a day with meals. clopidogrel (PLAVIX) 75 mg tablet Take 75 mg by mouth once daily. JARDIANCE 10 mg tablet Take 10 mg by mouth daily with breakfast. aspirin, enteric coated (ASPIRIN, ENTERIC COATED) 81 mg EC tablet Take 81 mg by mouth once daily. povidone, PF, (IVIZIA, PF,) 0.5 % drop Use 1 Drop in eyes three times a day. blood sugar diagnostic (BLOOD GLUCOSE TEST) test strip Test blood sugar(s) 1 times daily. Dx: E11.9. Insulin: No, Brand covered by insurance MULTIVITS,-CA,FE,OTH MIN (MULTIVITAMIN AND MINERAL ORAL) Take 1 tablet by mouth once daily. lancets(FREESTYLE LANCETS) use daily blood glucose control highANDlow(FREESTYLE CONTROL SOLN) use as directed No current facility-administered medications on file prior to visit. Social History SOCIAL HISTORY[1] Review of Symptoms REVIEW OF SYSTEMS Constitutional: (+) sleep disturbance Musculoskeletal: (+) back pain, (-) shoulder pain Skin: (+) easy bruising Genitourinary: (+) nocturia Psychiatric: (-) anxiety SEE HPI EXAM: BP 138/68 (BP Site: Left Arm, BP Position: Sitting, BP Cuff Size: Regular Adult) Pulse 64 Temp 36.3 ?C (97.3 ?F) Resp 16 SpO2 98% General Appearance: Well appearing, alert, in no acute distress, well-hydrated, well nourished.. in wheel chair. Health Maintenance List DTaP,Tdap,Td Vaccine(1 - Tdap) Never done RSV Vaccine(1 - 1-dose 75+ series) Never done Diabetic Foot Exam due on 11/27/2022 Bone Density Screening due on 07/23/2023 Influenza Vaccine(1) due on 03/19/2026 HbA1C due on 07/26/2025 Urine Albumin:Creatinine Ratio due on 07/27/2025 Dilated Retinal Exam due on 09/19/2025 LDL Cholesterol due on 01/23/2026 Depression Screening due on 01/29/2026 Anxiety Screening due on 01/29/2026 Advance Directive Discussion Completed Medicare Survata Annual Wellness Visit Completed Shingrix Vaccine Completed Pneumococcal Vaccine: 50+ Completed Data reviewed N/a Assessment and Plan 1. Lumbar disc disease with radiculopathy (M51.16) - Chronic pain with inadequate relief from current regimen (tizanidine, acetaminophen 1500 mg TID). - Reviewed prior use of orphenadrine in hospital with better efficacy; tizanidine and oxycodone provided minimal benefit. - Start orphenadrine 100 mg as previously used in hospital; discontinue tizanidine. - Limit acetaminophen to 1000 mg (2 tablets) BID and 1 regular acetaminophen 500 mg plus 1 Tylenol PM at bedtime; educated on recommended daily dose of 3000 mg. - May use full oxycodone tablet (5 mg) up to TID PRN if orphenadrine not available; may continue acetaminophen with oxycodone. - Discussed risks of over-sedation and fall risk with sedating medications, especially given nocturia. - Advised to avoid NSAIDs due to kidney concerns. - Follow-up with pain management (Dr. Dawn) on July 10. - Advised to go to ER if pain becomes unmanageable. Samantha Green PA-C Recording using ambient [employer] software for draft documentation of the visit was discussed with the patient/authorized liability claims representative; all questions welcomed and answered. Patient/authorized liability claims representative agreed to proceed [1] Social History Tobacco Use Smoking status: Never Smokeless tobacco: Never Vaping Use Vaping status: Never Used Substance Use Topics Alcohol use: No Drug use: No CNOV Observed: 06/15/2025 11:40 AM Status: COMPLETED Source: [facility] LUCILLE THURMAN ([id number]) 1935 F Date Time Provider Department 06/15/25 11:40 AM SAMANTHA GREEN [facility] During your visit today, we recorded the following information about you: Temperature Pulse Respiration Blood pressure 97.3 degrees 64/minute 16/minute 138/68 Samantha Green PA-C 06/15/2025 12:55 PM Signed Chief Complaint Patient presents with: Pain, Back HPI The patient is an 89-year-old female presenting for evaluation of refractory back and shoulder pain and adjustment of pain medications. Accompanied by her daughters, who are providing history. Chronic Back Pain: - Lucille Thurman has persistent back pain, exacerbated at night. - Currently taking tizanidine and 1500 mg of Tylenol TID with minimal relief. - Previously found relief with orphenadrine in the hospital, but it was not covered by insurance. - Tried oxycodone 2.5 mg (half of a 5 mg tablet) with no significant relief. - Denies taking ibuprofen due to concerns about kidney function. Sleep Disturbances: - Difficulty sleeping due to pain; Lucille wakes up after 2-3 hours of sleep. - Considering Tylenol PM to aid sleep. - Denies anxiety; Lucille's daughter believes anxiety may be contributing to sleep issues. Past medical history, appointments, medications, allergies reviewed. 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 atorvastatin (LIPITOR) 40 mg tablet Take 1 tablet by mouth daily at bedtime. For cholesterol. dextran 70-hypromellose (NATURAL BALANCE TEARS) 0.1-0.3 % ophthalmic solution Use 1 drop in both eyes as needed. acetaminophen (TYLENOL) 325 mg tablet Take 2 tablets by mouth every 6 hours as needed for pain. oxyCODONE IR (ROXICODONE) 5 mg immediate release tablet Take 2.5 mg by mouth every 4 hours as needed for pain. blood sugar diagnostic (BLOOD GLUCOSE TEST) test [...] Take 1 tablet by mouth once daily. (Patient taking differently: Take 10 mg by mouth once daily.) carvedilol (COREG) 3.125 mg tablet Take 3.125 mg by mouth two times a day with meals. clopidogrel (PLAVIX) 75 mg tablet Take 75 mg by mouth once daily. JARDIANCE 10 mg tablet Take 10 mg by mouth daily with breakfast. aspirin, enteric coated (ASPIRIN, ENTERIC COATED) 81 mg EC tablet Take 81 mg by mouth once daily. povidone, PF, (IVIZIA, PF,) 0.5 % drop Use 1 Drop in eyes three times a day. blood sugar diagnostic (BLOOD GLUCOSE TEST) test strip Test blood sugar(s) 1 times daily. Dx: E11.9. Insulin: No, Brand covered by insurance MULTIVITS,-CA,FE,OTH MIN (MULTIVITAMIN AND MINERAL ORAL) Take 1 tablet by mouth once daily. lancets(FREESTYLE LANCETS) use daily blood glucose control highANDlow(FREESTYLE CONTROL SOLN) use as directed No current facility-administered medications on file prior to visit. Social History SOCIAL HISTORY[1] Review of Symptoms REVIEW OF SYSTEMS Constitutional: (+) sleep disturbance Musculoskeletal: (+) back pain, (-) shoulder pain Skin: (+) easy bruising Genitourinary: (+) nocturia Psychiatric: (-) anxiety SEE HPI EXAM: BP 138/68 (BP Site: Left Arm, BP Position: Sitting, BP Cuff Size: Regular Adult) Pulse 64 Temp 36.3 ?C (97.3 ?F) Resp 16 SpO2 98% General Appearance: Well appearing, alert, in no acute distress, well-hydrated, well nourished.. in wheel chair. Health Maintenance List DTaP,Tdap,Td Vaccine(1 - Tdap) Never done RSV Vaccine(1 - 1-dose 75+ series) Never done Diabetic Foot Exam due on 11/27/2022 Bone Density Screening due on 07/23/2023 Influenza Vaccine(1) due on 03/19/2026 HbA1C due on 07/26/2025 Urine Albumin:Creatinine Ratio due on 07/27/2025 Dilated Retinal Exam due on 09/19/2025 LDL Cholesterol due on 01/23/2026 Depression Screening due on 01/29/2026 Anxiety Screening due on 01/29/2026 Advance Directive Discussion Completed Medicare Advantage Annual Wellness Visit Completed Shingrix Vaccine Completed Pneumococcal Vaccine: 50+ Completed Data reviewed N/a Assessment and Plan 1. Lumbar disc disease with radiculopathy (M51.16) - Chronic pain with inadequate relief from current regimen (tizanidine, acetaminophen 1500 mg TID). - Reviewed prior use of orphenadrine in hospital with better efficacy; tizanidine and oxycodone provided minimal benefit. - Start orphenadrine 100 mg as previously used in hospital; discontinue tizanidine. - Limit acetaminophen to 1000 mg (2 tablets) BID and 1 regular acetaminophen 500 mg plus 1 Tylenol PM at bedtime; educated on recommended daily dose of 3000 mg. - May use full oxycodone tablet (5 mg) up to TID PRN if orphenadrine not available; may continue acetaminophen with oxycodone. - Discussed risks of over-sedation and fall risk with sedating medications, especially given nocturia. - Advised to avoid NSAIDs due to kidney concerns. - Follow-up with pain management (Dr. Dawn) on July 10. - Advised to go to ER if pain becomes unmanageable. Samantha Green PA-C Recording using [employer] software for draft documentation of the visit was discussed with the patient/authorized liability claims representative; all questions welcomed and answered. Patient/authorized liability claims representative agreed to proceed [1] Social History Tobacco Use Smoking status: Never Smokeless tobacco: Never Vaping Use Vaping status: Never Used Substance Use Topics Alcohol use: No Drug use: No Referring Provider: SELF [200] Allergies As of Date: 06/15/2025 Noted Allergy Reaction METFORMIN 03/13/2013 6 - Diarrhea MORPHINE 02/14/2016 8 - GI Upset OXYCODONE 02/14/2016 8 - GI Upset PREVACID (LANSOPRAZOLE) 07/20/2005 Date Reviewed: 06/15/2025 Reviewed by: Lisa Sterlign LPN - Fully Assessed Reason for Visit: Pain, Back [855] Primary Visit Diagnosis:Lumbar disc disease with radiculopathy [M51.16] Order(s):orphenadrine ER (NORFLEX) 100 mg tabletTake 1 tablet by mouth two times a day.Disp: 60 tabletRfl: 1 Prescriptions as of 06/15/2025 - orphenadrine ER (NORFLEX) 100 mg tablet Take 1 tablet by mouth two times a day. - senna-docusate (SENNA-S) 8.6-50 mg per tablet Take 1 tablet by mouth two times a day. - atorvastatin (LIPITOR) 40 mg tablet Take 1 tablet by mouth daily at bedtime. For cholesterol. - dextran 70-hypromellose (NATURAL BALANCE TEARS) 0.1-0.3 % ophthalmic solution Use 1 drop in both eyes as needed. - acetaminophen (TYLENOL) 325 mg tablet Take 2 tablets by mouth every 6 hours as needed for pain. - oxyCODONE IR (ROXICODONE) 5 mg immediate release tablet Take 2.5 mg by mouth every 4 hours as needed for pain. - blood sugar diagnostic (BLOOD GLUCOSE TEST) [...] 81 mg by mouth once daily. - povidone, PF, [...] of 05/09/2019: Problem List As Of Date 06/15/2025 Noted Resolved Controlled type 2 diabetes mellitus [...] 3b chronic kidney disease (HCC) [N18.32] 03/05/2025 Prescriptions ordered this encounter Disp Refills Start End ORPHENADRINE CITRATE ER 100 MG TABLE* 60 t* 1 06/15/2025 Route: PO Sig: Take 1 tablet by mouth two times a day. Medications Discontinued During This Encounter Prescriptions - tiZANidine (ZANAFLEX) 4 mg tablet (Discontinued) Take 1 tablet by mouth every 8 hours as needed (muscle spasms). - tiZANidine (ZANAFLEX) 4 mg tablet (Discontinued) Take 1 tablet by mouth every 8 hours as needed. - orphenadrine ER (NORFLEX) 100 mg tablet (Discontinued) Take 1 tablet by mouth two times a day. Level of Service: OFFICE/OUTPATIENT ESTABLISHED MOD MDM 30 MIN [09724] Additional E/M codes: VISIT CPLX INHERENT EANDM ASSOC WITH MED * LOS History for Encounter Encounter Status:Closed by SAMANTHA SOLIS on 06/15/25 PROGRESS Observed: 05/25/2025 3:28 PM Status: COMPLETED Source: [facility] HNO ID: [id number] Author: ?, ?, ? Service: ? Author Type: ? Type: Progress Notes Filed: 05/25/2025 15:33 Note Text: POPULATION HEALTH NAVIGATION OUTREACH Action/ - 0 HCC Flu: Due for dose 1 since 05/21/2025 KED (uacr): Next due on 07/27/2025 Updated appt notes to address HCC/Care Gap Phone Issue, Mychart Sent Reason for Outreach Care Gap/HCC or Scheduling Wellness Visits Care Gaps due: KED Flu Vaccine Patient Contacted: Unable or unnecessary to reach patient: Unable to leave message [employer] message sent Updated appointment notes Navigation Signature: Liyah Barton May 25, 2025 3:28 PM CNPTOLEATHA Observed: 05/25/2025 12:00 AM Status: COMPLETED Source: [facility] Patient Outreach (NETNAV) LUCILLE THURMAN ([id number]) 1935 F Date Time Provider Department 05/25/25 ALLIE CHACON NETFERMINV During your visit today, we recorded the following information about you: Liyah Barton 05/25/2025 3:33 PM Signed POPULATION HEALTH NAVIGATION OUTREACH Action/ - 0 HCC Flu: Due for dose 1 since 05/21/2025 CHARMAINE ([facility]): Next due on 07/27/2025 Updated appt notes to address HCC/Care Gap Phone Issue, Mychart Sent Reason for Outreach Care Gap/HCC or Scheduling Wellness Visits Care Gaps due: KED Flu Vaccine Patient Contacted: Unable or unnecessary to reach patient: Unable to leave message [employer] message sent Updated appointment notes Navigation Signature: Liyah Barton May 25, 2025 3:28 PM Allergies As of Date: 05/25/2025 Noted Allergy Reaction METFORMIN 03/13/2013 6 - Diarrhea MORPHINE 02/14/2016 8 - GI Upset OXYCODONE 02/14/2016 8 - GI Upset PREVACID (LANSOPRAZOLE) 07/20/2005 Date Reviewed: 05/22/2025 Reviewed by: Jenifer Guthrie MA - Fully Assessed Reason for Visit: Population Health Navigation Outreach [[id number]] Cmt: Beryl De Anda Prescriptions as of 05/25/2025 - orphenadrine ER (NORFLEX) 100 mg tablet Take 1 tablet by mouth two times a day. - predniSONE (DELTASONE) 10 mg tablet Take 4 tabs daily x5 days, then 2 tabs daily for 5 days, then 1 tab daily for 5 days. - tiZANidine (ZANAFLEX) 4 mg tablet Take 1 tablet by mouth every 8 hours as needed (muscle spasms). - tiZANidine (ZANAFLEX) 4 mg tablet Take 1 tablet by mouth every 8 hours as needed. - senna-docusate (SENNA-S) 8.6-50 mg per tablet Take 1 tablet by mouth two times a day. - atorvastatin (LIPITOR) 40 mg tablet Take 1 tablet by mouth daily at bedtime. For cholesterol. - dextran 70-hypromellose (NATURAL BALANCE TEARS) 0.1-0.3 % ophthalmic solution Use 1 drop in both eyes as needed. - acetaminophen (TYLENOL) 325 mg tablet Take 2 tablets by mouth every 6 hours as needed for pain. - oxyCODONE IR (ROXICODONE) 5 mg immediate release tablet Take 2.5 mg by mouth every 4 hours as needed for pain. - blood sugar diagnostic (BLOOD GLUCOSE TEST) [...] 81 mg by mouth once daily. - povidone, PF, [...] of 05/09/2019: Problem List As Of Date 05/25/2025 Noted Resolved Controlled type 2 diabetes mellitus [...] disease (HCC) [N18.32] 03/05/2025 Encounter Status:Closed by LIYAH BARTON on 05/25/25 PROGRESS Observed: 05/22/2025 3:40 PM Status: COMPLETED Source: [facility] ID: [id number] Author: ALLIE CHACON MD Service: ? Author Type: Physician Type: Progress Notes Filed: 05/22/2025 17:49 Note Text: Chief Complaint Patient presents with: body aches HPI Lucille Thurman is a 89 year old female who presents here today for body aches. Here with her daughter Veronica. Pt c/o body aches x 1.5 weeks. She has been dealing with sore aches all over the body, Upper body x 2 months and lower body sx 1.5 weeks. She has groin pain and upper back and shoulder pain. Pain is worse in the mornings, does ease up some with moving around. Rates pain today at this moment 6/10 but can be much worse. Has used OTC pain relievers, Tizanidine 4 mg 1 pill TID, and heat. States she has arthritis. Used to be on Tramadol, her daughter that manages her meds states she is no longer taking that. Has Oxycodone IR 5 mg that she uses as needed she thinks, believes her daughter is putting it in her med box. She doesn't feel that it really helps. Past medical history, appointments, medications, allergies reviewed. [...] of fall Hyperlipidemia Inflammatory disease of breast custodial (current) use 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 custodial (current) use of oral hypoglycemic drugs Lumbar [...] on File Prior to Visit Medication Sig tiZANidine (ZANAFLEX) 4 mg tablet Take 1 tablet by mouth every 8 hours as needed (muscle spasms). tiZANidine (ZANAFLEX) 4 mg tablet Take 1 tablet by mouth every 8 hours as needed. senna-docusate (SENNA-S) 8.6-50 mg per tablet Take 1 tablet by mouth two times a day. atorvastatin (LIPITOR) 40 mg tablet Take 1 tablet by mouth daily at bedtime. For cholesterol. dextran 70-hypromellose (NATURAL BALANCE TEARS) 0.1-0.3 % ophthalmic solution Use 1 drop in both eyes as needed. acetaminophen (TYLENOL) 325 mg tablet Take 2 tablets by mouth every 6 hours as needed for pain. doxycycline monohydrate (MONODOX) 100 mg capsule Take 100 mg by mouth two times a day. oxyCODONE IR (ROXICODONE) 5 mg immediate release tablet Take 2.5 mg by mouth every 4 hours as needed for pain. blood sugar diagnostic (BLOOD GLUCOSE TEST) test [...] Take 1 tablet by mouth once daily. (Patient taking differently: Take 10 mg by mouth once daily.) carvedilol (COREG) 3.125 mg tablet Take 3.125 mg by mouth two times a day with meals. clopidogrel (PLAVIX) 75 mg tablet Take 75 mg by mouth once daily. JARDIANCE 10 mg tablet Take 10 mg by mouth daily with breakfast. aspirin, enteric coated (ASPIRIN, ENTERIC COATED) 81 mg EC tablet Take 81 mg by mouth once daily. povidone, PF, (IVIZIA, PF,) 0.5 % drop Use 1 Drop in eyes three times a day. blood sugar diagnostic (BLOOD GLUCOSE TEST) test strip Test blood sugar(s) 1 times daily. Dx: E11.9. Insulin: No, Brand covered by insurance MULTIVITS, W-CA,FE,OTH MIN (MULTIVITAMIN AND MINERAL ORAL) Take 1 tablet by mouth once daily. lancets(FREESTYLE LANCETS) use daily blood glucose control highANDlow(FREESTYLE CONTROL SOLN) use as directed No current facility-administered medications on file prior to visit. Social History SOCIAL HISTORY[1] EXAM: BP 118/70 Pulse 72 Resp 16 Wt 61.6 kg (135 lb 12.9 oz) SpO2 98% BMI 24.06 kg/m? General Appearance: Well appearing, alert, in no acute distress, well-hydrated, well nourished.. Extremities: Shoulders: slightly decreased ROM;; Hands with no swelling, tenderness to proximal left leg and proximal hamstring area. Health Maintenance List DTaP,Tdap,Td Vaccine(1 - Tdap) Never done RSV Vaccine(1 - 1-dose 75+ series) Never done Diabetic Foot Exam due on 11/27/2022 Bone Density Screening due on 07/23/2023 Influenza Vaccine(1) due on 05/21/2025 HbA1C due on 07/26/2025 Urine Albumin:Creatinine Ratio due on 07/27/2025 Dilated Retinal Exam due on 09/19/2025 LDL Cholesterol due on 01/23/2026 Depression Screening due on 01/29/2026 Anxiety Screening due on 01/29/2026 Advance Directive Discussion Completed Medicare Advantage Annual Wellness Visit Completed Shingrix Vaccine Completed Pneumococcal Vaccine: 50+ Completed Data reviewed none Recording using [employer] software for draft documentation of the visit was discussed with the patient/authorized liability claims representative; all questions welcomed and answered. Patient/authorized liability claims representative agreed to proceed 1. Acute pain of both shoulders (M25.511) 2. 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 No joint swelling noted on exam. - Start prednisone for 2 weeks to reduce inflammation and pain. - Continue tizanidine and Tylenol as needed for pain. - Advised to continue exercise but avoid overexertion; recommended stopping activity before onset of pain. 4. Left leg pain (M79.605) Likely related to recent overexertion during physical therapy. - Advised to continue physical therapy with caution to avoid overexertion. Follow up prn I agree with the Chief Complaint, ROS, and Past Histories independently gathered by the clinical application support lead and the remaining scribed note accurately describes my personal service to the patient. Medical Decision Making: Problems: Low: Acute, uncomplicated illness or injury Risk: Moderate: Drug management Medical Decision Making Level: 3 - Low Allie Chacon MD The documentation for this note was completed by Jenifer Guthrie MA acting as scribe for Allie Chacon MD. May 22, 2025 3:40 PM. Jenifer Guthrie MA [1] Social History Tobacco Use Smoking status: Never Smokeless tobacco: Never Vaping Use Vaping status: Never Used Substance Use Topics Alcohol use: No Drug use: No CNOV Observed: 05/22/2025 3:40 PM Status: COMPLETED Source: [facility] LUCILLE THURMAN ([id number]) 1935 F Date Time Provider Department 05/22/25 3:40 PM ALLIE CHACON [facility] During your visit today, we recorded the following information about you: Pulse Respiration Blood pressure Weight 72/minute 16/minute 118/70 61.6 kg Allie Chacon MD 05/22/2025 5:49 PM Signed Chief Complaint Patient presents with: body aches HPI Lucille Thurman is a 89 year old female who presents here today for body aches. Here with her daughter Veronica. Pt c/o body aches x 1.5 weeks. She has been dealing with sore aches all over the body, Upper body x 2 months and lower body sx 1.5 weeks. She has groin pain and upper back and shoulder pain. Pain is worse in the mornings, does ease up some with moving around. Rates pain today at this moment 6/10 but can be much worse. Has used OTC pain relievers, Tizanidine 4 mg 1 pill TID, and heat. States she has arthritis. Used to be on Tramadol, her daughter that manages her meds states she is no longer taking that. Has Oxycodone IR 5 mg that she uses as needed she thinks, believes her daughter is putting it in her med box. She doesn't feel that it really helps. Past medical history, appointments, medications, allergies reviewed. [...] of fall Hyperlipidemia Inflammatory disease of breast custodial (current) use 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 custodial (current) use of oral hypoglycemic drugs Lumbar [...] on File Prior to Visit Medication Sig tiZANidine (ZANAFLEX) 4 mg tablet Take 1 tablet by mouth every 8 hours as needed (muscle spasms). tiZANidine (ZANAFLEX) 4 mg tablet Take 1 tablet by mouth every 8 hours as needed. senna-docusate (SENNA-S) 8.6-50 mg per tablet Take 1 tablet by mouth two times a day. atorvastatin (LIPITOR) 40 mg tablet Take 1 tablet by mouth daily at bedtime. For cholesterol. dextran 70-hypromellose (NATURAL BALANCE TEARS) 0.1-0.3 % ophthalmic solution Use 1 drop in both eyes as needed. acetaminophen (TYLENOL) 325 mg tablet Take 2 tablets by mouth every 6 hours as needed for pain. doxycycline monohydrate (MONODOX) 100 mg capsule Take 100 mg by mouth two times a day. oxyCODONE IR (ROXICODONE) 5 mg immediate release tablet Take 2.5 mg by mouth every 4 hours as needed for pain. blood sugar diagnostic (BLOOD GLUCOSE TEST) test [...] Take 1 tablet by mouth once daily. (Patient taking differently: Take 10 mg by mouth once daily.) carvedilol (COREG) 3.125 mg tablet Take 3.125 mg by mouth two times a day with meals. clopidogrel (PLAVIX) 75 mg tablet Take 75 mg by mouth once daily. JARDIANCE 10 mg tablet Take 10 mg by mouth daily with breakfast. aspirin, enteric coated (ASPIRIN, ENTERIC COATED) 81 mg EC tablet Take 81 mg by mouth once daily. povidone, PF, (IVIZIA, PF,) 0.5 % drop Use 1 Drop in eyes three times a day. blood sugar diagnostic (BLOOD GLUCOSE TEST) test strip Test blood sugar(s) 1 times daily. Dx: E11.9. Insulin: No, Brand covered by insurance MULTIVITS,-CA,FE,OTH MIN (MULTIVITAMIN AND MINERAL ORAL) Take 1 tablet by mouth once daily. lancets(FREESTYLE LANCETS) use daily blood glucose control highANDlow(FREESTYLE CONTROL SOLN) use as directed No current facility-administered medications on file prior to visit. Social History SOCIAL HISTORY[1] EXAM: BP 118/70 Pulse 72 Resp 16 Wt 61.6 kg (135 lb 12.9 oz) SpO2 98% BMI 24.06 kg/m? General Appearance: Well appearing, alert, in no acute distress, well-hydrated, well nourished.. Extremities: Shoulders: slightly decreased ROM;; Hands with no swelling, tenderness to proximal left leg and proximal hamstring area. Health Maintenance List DTaP,Tdap,Td Vaccine(1 - Tdap) Never done RSV Vaccine(1 - 1-dose 75+ series) Never done Diabetic Foot Exam due on 11/27/2022 Bone Density Screening due on 07/23/2023 Influenza Vaccine(1) due on 05/21/2025 HbA1C due on 07/26/2025 Urine Albumin:Creatinine Ratio due on 07/27/2025 Dilated Retinal Exam due on 09/19/2025 LDL Cholesterol due on 01/23/2026 Depression Screening due on 01/29/2026 Anxiety Screening due on 01/29/2026 Advance Directive Discussion Completed Medicare Advantage Annual Wellness Visit Completed Shingrix Vaccine Completed Pneumococcal Vaccine: 50+ Completed Data reviewed none Recording using [employer] software for draft documentation of the visit was discussed with the patient/authorized liability claims representative; all questions welcomed and answered. Patient/authorized liability claims representative agreed to proceed 1. Acute pain of both shoulders (M25.511) 2. 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 No joint swelling noted on exam. - Start prednisone for 2 weeks to reduce inflammation and pain. - Continue tizanidine and Tylenol as needed for pain. - Advised to continue exercise but avoid overexertion; recommended stopping activity before onset of pain. 4. Left leg pain (M79.605) Likely related to recent overexertion during physical therapy. - Advised to continue physical therapy with caution to avoid overexertion. Follow up prn I agree with the Chief Complaint, ROS, and Past Histories independently gathered by the clinical application support lead and the remaining scribed note accurately describes my personal service to the patient. Medical Decision Making: Problems: Low: Acute, uncomplicated illness or injury Risk: Moderate: Drug management Medical Decision Making Level: 3 - Low Allie Chacon MD The documentation for this note was completed by Jenifer Guthrie MA acting as scribe for Allie Chacon MD. May 22, 2025 3:40 PM. Jenifer Guthrie MA [1] Social History Tobacco Use Smoking status: Never Smokeless tobacco: Never Vaping Use Vaping status: Never Used Substance Use Topics Alcohol use: No Drug use: No Allergies As of Date: 05/22/2025 Noted Allergy Reaction METFORMIN 03/13/2013 6 - Diarrhea MORPHINE 02/14/2016 8 - GI Upset OXYCODONE 02/14/2016 8 - GI Upset PREVACID (LANSOPRAZOLE) 07/20/2005 Date Reviewed: 05/22/2025 Reviewed by: Jenifer Guthrie MA - Fully Assessed Reason for Visit: body aches [Other] Primary Visit Diagnosis:Acute pain of both shoulders [M25.511, M25.512] Other Visit Diagnoses:Primary osteoarthritis of both shoulders [M19.011, M19.012] Primary osteoarthritis of both hands [M19.041, M19.042] Left leg pain [M79.605] Order(s):orphenadrine ER (NORFLEX) 100 mg tabletTake 1 tablet by mouth two times a day.Disp: Rfl: predniSONE (DELTASONE) 10 mg tabletTake 4 tabs daily x5 days, then 2 tabs daily for 5 days, then 1 tab daily for 5 days.Disp: 35 tabletRfl: 0 Prescriptions as of 05/22/2025 - orphenadrine ER (NORFLEX) 100 mg tablet Take 1 tablet by mouth two times a day. - predniSONE (DELTASONE) 10 mg tablet Take 4 tabs daily x5 days, then 2 tabs daily for 5 days, then 1 tab daily for 5 days. - tiZANidine (ZANAFLEX) 4 mg tablet Take 1 tablet by mouth every 8 hours as needed (muscle spasms). - tiZANidine (ZANAFLEX) 4 mg tablet Take 1 tablet by mouth every 8 hours as needed. - senna-docusate (SENNA-S) 8.6-50 mg per tablet Take 1 tablet by mouth two times a day. - atorvastatin (LIPITOR) 40 mg tablet Take 1 tablet by mouth daily at bedtime. For cholesterol. - dextran 70-hypromellose (NATURAL BALANCE TEARS) 0.1-0.3 % ophthalmic solution Use 1 drop in both eyes as needed. - acetaminophen (TYLENOL) 325 mg tablet Take 2 tablets by mouth every 6 hours as needed for pain. - oxyCODONE IR (ROXICODONE) 5 mg immediate release tablet Take 2.5 mg by mouth every 4 hours as needed for pain. - blood sugar diagnostic (BLOOD GLUCOSE TEST) [...] 81 mg by mouth once daily. - povidone, PF, [...] of 05/09/2019: Problem List As Of Date 05/22/2025 Noted Resolved Controlled type 2 diabetes mellitus [...] 3b chronic kidney disease (HCC) [N18.32] 03/05/2025 Prescriptions ordered this encounter Disp Refills Start End ORPHENADRINE CITRATE ER 100 MG TABLE* 05/22/2025 Class: Med Update Route: PO Sig: Take 1 tablet by mouth two times a day. PREDNISONE 10 MG TABLET 35 t* 0 05/22/2025 06/06/2025 Sig: Take 4 tabs daily x5 days, then 2 tabs daily for 5 days, then 1 tab daily for 5 days. Medications Discontinued During This Encounter Prescriptions - doxycycline monohydrate (MONODOX) 100 mg capsule (Discontinued) Reported on 05/22/2025 Level of Service: OFFICE/OUTPATIENT ESTABLISHED MOD MDM 30 MIN [[id number]] Additional E/M codes: VISIT CPLX INHERENT EANDM ASSOC WITH MED * Disposition: Return if symptoms worsen or fail to improve. Follow-up and Disposition History for Encounter Date Provider Department Center 05/22/2025 [id number] CHACON CE[facility] De Anda [facility] Encounter Status:Closed by ALLIE CHACON on 05/22/25 PROGRESS Observed: 04/24/2025 11:28 AM Status: COMPLETED Source: [facility] ID: [id number] Author: CATHY DIAZ, RN Service: ? Author Type: Registered Nurse Type: Progress Notes Filed: 04/24/2025 11:40 Note Text: CDM Care Path Telephonic Outreach Provider Action/FYI CDM Update Called and spoke with the patient She reports she is doing well. Denies back pain She is monitoring her BP and states her readings have been good Also monitoring BG and reports those are good as well. Denies hypoglycemia. Offered Healthy at Home phone number, patient declined. Informed her I would call again in 2 weeks to go over additional information. Patient states she does not feel that is necessary. Declines future CDM calls. Denies any questions or concerns at this time. Patient identified by Name and Date of . Discussed care with patient. Program Details Chronic Disease Management Status: Enrolled Effective Dates: 02/08/2025 - present Responsible Staff: Cathy Diaz, RN Support and Services: Hypertension, Diabetes, Chronic Kidney Disease (CKD) Program Goals Targets Target Due Completed Completed By Outcome Annual Nephrology visit addressed 07/05/2025 -- -- -- CKD lab care gaps addressed 07/05/2025 -- -- -- Comprehensive CKD education provided 07/05/2025 -- -- -- Comprehensive Diabetes education provided 07/05/2025 -- -- -- Comprehensive HTN education provided 07/05/2025 -- -- -- Patient-stated goal addressed (add comment) 07/05/2025 -- -- -- General education provided (managing stress, where to go/how to contact, etc.) 05/07/2025 04/24/2025 Cathy Diaz RN Complete Biannual PCP visit addressed 07/05/2025 04/24/2025 Cathy Diaz RN Complete/Scheduled Diabetes lab care gaps addressed 07/05/2025 04/24/2025 Cathy Diaz RN Complete/Scheduled HTN lab care gaps addressed 07/05/2025 04/24/2025 Cathy Diaz RN Complete/Scheduled Intake assessments completed: ADLs, Fall Risk, SDOH 05/07/2025 02/08/2025 Cathy Diaz RN Complete Annual Medicare Wellness visit addressed 07/05/2025 02/08/2025 Cathy Diaz RN Complete/Scheduled Assessments CDM Assessment Medications: Do you have any questions about taking your medications or which medications you should be taking?: No Do you need any medication refills at this time, including any of the medication you might take only when needed?: No Symptoms: Are you experiencing any new or worsening symptoms that you need to talk about today?: No ADLs No documentation this encounter Fall Risk No documentation this encounter SDOH No documentation this encounter Interventions The following were addressed during this visit: - Biannual PCP visit addressed - General education provided (managing stress, where to go/how to contact, etc.) - Schedule Biannual PCP Appointment - Month 1: Provide General Education: Managing Stress AND Anxiety - Month 1: Provide General Education: Where to Go for Care - HTN lab care gaps addressed - Month 3: Schedule/Order BMP Lab - Diabetes lab care gaps addressed - Month 1: Schedule/Order HbA1C Lab - Month 1: Schedule/Order Lipid Panel Lab - Month 1: Schedule Diabetes Eye Exam - Month 1: Provide Diabetes Education: How to: Blood Sugar Monitoring - Month 1: Provide Diabetes Education: Importance of Blood Sugar Monitoring - Month 1: Provide Diabetes Education: Signs and Symptoms of Low Blood Sugar - Evaluate for Consult to Diabetes Education - Evaluate for Referral to Pharmacy for Diabetes Medication Management - Evaluate for Referral to Endocrinology ([facility] only) - Month 1: Provide Diabetes Education: How to Manage Blood Sugar - Month 3: Provide Diabetes Education: Medication Adherence/Compliance - Month 3: Provide Diabetes Education: Understanding Medication - Month 3: Schedule/Order Urine Albumin Creatinine lab - Bi-Weekly Outreach (Recurring) Disposition Based on curriculum and assessment coordinator, the following disposition is advised: No action needed Cathy Diaz RN April 24, 2025 11:28 AM BERNARDOROB Observed: 04/24/2025 12:00 AM Status: COMPLETED Source: [facility] Patient Outreach ([facility]) LUCILLE THURMAN ([id number]) 1935 F Date Time Provider [facility] your visit today, we recorded the following information about you: Cathy Diaz RN 04/24/2025 11:40 AM Signed CDM Care Path Telephonic Outreach Provider Action/ CDM Update Called and spoke with the patient She reports she is doing well. Denies back pain She is monitoring her BP and states her readings have been good Also monitoring BG and reports those are good as well. Denies hypoglycemia. Offered Healthy at Home phone number, patient declined. Informed her I would call again in 2 weeks to go over additional information. Patient states she does not feel that is necessary. Declines future CDM calls. Denies any questions or concerns at this time. Patient identified by Name and Date of . Discussed care with patient. Program Details Chronic Disease Management Status: Enrolled Effective Dates: 02/08/2025 - present Responsible Staff: Cathy Diaz, RN Support and Services: Hypertension, Diabetes, Chronic Kidney Disease (CKD) Program Goals Targets Target Due Completed Completed By Outcome Annual Nephrology visit addressed 07/05/2025 -- -- -- CKD lab care gaps addressed 07/05/2025 -- -- -- Comprehensive CKD education provided 07/05/2025 -- -- -- Comprehensive Diabetes education provided 07/05/2025 -- -- -- Comprehensive HTN education provided 07/05/2025 -- -- -- Patient-stated goal addressed (add comment) 07/05/2025 -- -- -- General education provided (managing stress, where to go/how to contact, etc.) 05/07/2025 04/24/2025 Cathy Diaz RN Complete Biannual PCP visit addressed 07/05/2025 04/24/2025 Cathy Diaz RN Complete/Scheduled Diabetes lab care gaps addressed 07/05/2025 04/24/2025 Cathy Diaz RN Complete/Scheduled HTN lab care gaps addressed 07/05/2025 04/24/2025 Cathy Diaz RN Complete/Scheduled Intake assessments completed: ADLs, Fall Risk, SDOH 05/07/2025 02/08/2025 Cathy Diaz RN Complete Annual Medicare Wellness visit addressed 07/05/2025 02/08/2025 Cathy Diaz RN Complete/Scheduled Assessments CDM Assessment Medications: Do you have any questions about taking your medications or which medications you should be taking?: No Do you need any medication refills at this time, including any of the medication you might take only when needed?: No Symptoms: Are you experiencing any new or worsening symptoms that you need to talk about today?: No ADLs No documentation this encounter Fall Risk No documentation this encounter SDOH No documentation this encounter Interventions The following were addressed during this visit: - Biannual PCP visit addressed - General education provided (managing stress, where to go/how to contact, etc.) - Schedule Biannual PCP Appointment - Month 1: Provide General Education: Managing Stress AND Anxiety - Month 1: Provide General Education: Where to Go for Care - HTN lab care gaps addressed - Month 3: Schedule/Order BMP Lab - Diabetes lab care gaps addressed - Month 1: Schedule/Order HbA1C Lab - Month 1: Schedule/Order Lipid Panel Lab - Month 1: Schedule Diabetes Eye Exam - Month 1: Provide Diabetes Education: How to: Blood Sugar Monitoring - Month 1: Provide Diabetes Education: Importance of Blood Sugar Monitoring - Month 1: Provide Diabetes Education: Signs and Symptoms of Low Blood Sugar - Evaluate for Consult to Diabetes Education - Evaluate for Referral to Pharmacy for Diabetes Medication Management - Evaluate for Referral to Endocrinology ([facility] only) - Month 1: Provide Diabetes Education: How to Manage Blood Sugar - Month 3: Provide Diabetes Education: Medication Adherence/Compliance - Month 3: Provide Diabetes Education: Understanding Medication - Month 3: Schedule/Order Urine Albumin Creatinine lab - Bi-Weekly Outreach (Recurring) Disposition Based on curriculum and assessment coordinator, the following disposition is advised: No action needed Cathy Diaz RN April 24, 2025 11:28 AM Allergies As of Date: 04/24/2025 Noted Allergy Reaction METFORMIN 03/13/2013 6 - Diarrhea MORPHINE 02/14/2016 8 - GI Upset OXYCODONE 02/14/2016 8 - GI Upset PREVACID (LANSOPRAZOLE) 07/20/2005 Date Reviewed: 03/21/2025 Reviewed by: Luana Degroot MA - Fully Assessed Prescriptions as of 04/24/2025 - tiZANidine (ZANAFLEX) 4 mg tablet Take 1 tablet by mouth every 8 hours as needed (muscle spasms). - tiZANidine (ZANAFLEX) 4 mg tablet Take 1 tablet by mouth every 8 hours as needed. - senna-docusate (SENNA-S) 8.6-50 mg per tablet Take 1 tablet by mouth two times a day. - atorvastatin (LIPITOR) 40 mg tablet Take 1 tablet by mouth daily at bedtime. For cholesterol. - dextran 70-hypromellose (NATURAL BALANCE TEARS) 0.1-0.3 % ophthalmic solution Use 1 drop in both eyes as needed. - acetaminophen (TYLENOL) 325 mg tablet Take 2 tablets by mouth every 6 hours as needed for pain. - doxycycline monohydrate (MONODOX) 100 mg capsule Take 100 mg by mouth two times a day. - oxyCODONE IR (ROXICODONE) 5 mg immediate release tablet Take 2.5 mg by mouth every 4 hours as needed for pain. - blood sugar diagnostic (BLOOD GLUCOSE TEST) [...] 81 mg by mouth once daily. - povidone, PF, [...] of 05/09/2019: Problem List As Of Date 04/24/2025 Noted Resolved Controlled type 2 diabetes mellitus [...] disease (HCC) [N18.32] 03/05/2025 Encounter Status:Closed by CATHY DIAZ on 04/24/25 PROGRESS Observed: 03/21/2025 9:40 AM Status: COMPLETED Source: [facility] ID: [id number] Author: XU VARELA APRN.[employer] Service: ? Author Type: Nurse Practitioner Type: Progress Notes Filed: 03/21/2025 10:08 Note Text: Chief Complaint Patient presents with: Hospital F/U [facility] Lucille Thurman is a 89 year old female who presents here today for Above Complaints.. Patient presents for ER follow up for lumbar pain with sciatica. Was given tramadol by ER and CT showed multilevel DDD. Patient was admitted to [facility] 2 days later and then was sent to TCU where she has been until 03/19 when she was d/c'd home with [facility] for PT/OT. Currently living with daughter. Daughter and son in law in attendance at appt. Currently on doxycycline for bronchitis but wheezing not improving, last dose due on 03/23. Has appt with Dr. Dawn later today for injection, plavix has been held. Past medical history, appointments, medications, allergies reviewed. [...] of fall Hyperlipidemia Inflammatory disease of breast custodial (current) use 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 custodial (current) use of oral hypoglycemic drugs Lumbar [...] on File Prior to Visit Medication Sig orphenadrine ER (NORFLEX) 100 mg tablet Take 1 tablet by mouth two times a day. blood sugar diagnostic (BLOOD [...] Take 1 tablet by mouth once daily. (Patient taking differently: Take 10 mg by mouth once daily.) carvedilol (COREG) 3.125 mg tablet Take 3.125 [...] E11.9. Insulin: No, Brand covered by insurance MULTIVITS,-CA,FE,OTH MIN (MULTIVITAMIN AND MINERAL ORAL) Take 1 [...] No Review of Symptoms REVIEW OF SYSTEMS SEE HPI EXAM: BP 169/65 Pulse 78 Wt 66 kg (145 lb 8.1 oz) BMI 25.77 kg/m? General Appearance: Well appearing, alert, in no acute distress, well-hydrated, well nourished.. Back:reflexes are 2+ and symmetric, motor and sensory appear to be normal Lungs: Positive findings: wheezing Shortness of breath: At rest Cough. Heart: RRR without murmur, gallop, or rubs. No ectopy. Peripheral Pulses: Normal. Health Maintenance List DTaP,Tdap,Td Vaccine(1 - Tdap) Never done RSV Vaccine(1 - 1-dose 75+ series) Never done Diabetic Foot Exam due on 11/27/2022 Bone Density Screening due on 07/23/2023 Covid-19 Vaccine( season) due on 07/28/2025 Influenza Vaccine(1) due on 05/21/2025 HbA1C due on 07/26/2025 Urine Albumin:Creatinine Ratio due on 07/27/2025 Dilated Retinal Exam due on 09/19/2025 LDL Cholesterol due on 01/23/2026 Depression Screening due on 01/29/2026 Anxiety Screening due on 01/29/2026 Advance Directive Discussion Completed Medicare Advantage Annual Wellness Visit Completed Shingrix Vaccine Completed Pneumococcal Vaccine: 50+ Completed ASSESSMENT/PLAN: 1. Degeneration of intervertebral disc of lumbar region with discogenic back pain and lower extremity pain - ICD9: 722.52, ICD10: M51.362 (primary diagnosis) -Follow up with Dr. Dawn today as scheduled 2. Hyperlipidemia LDL goal <100 - ICD9: 272.4, ICD10: E78.5 - ATORVASTATIN 80 MG TABLET 3. Acute midline low back pain without sciatica - ICD9: 724.2, ICD10: M54.50 - ORPHENADRINE CITRATE ER 100 MG TABLET,EXTENDED RELEASE 4. Community acquired pneumonia, unspecified laterality - ICD9: 486, ICD10: J18.9 - Continue doxycycline through 03/23 - AMOXICILLIN 500 MG-POTASSIUM CLAVULANATE 125 MG TABLET Xu Varela APRN.[employer] CNOV Observed: 03/21/2025 9:40 AM Status: COMPLETED Source: [facility] LUCILLE THURMAN ([id number]) 1935 F Date Time Provider Department 03/21/25 9:40 AM XU VARELA During your visit today, we recorded the following information about you: Pulse Blood pressure Weight 78/minute 169/65 66 kg Xu Varela APRN.CNP 03/21/2025 10:08 AM Signed Chief Complaint Patient presents with: Hospital F/U [facility] Lucille Hassandaphne is a 89 year old female who presents here today for Above Complaints.. Patient presents for ER follow up for lumbar pain with sciatica. Was given tramadol by ER and CT showed multilevel DDD. Patient was admitted to [facility] 2 days later and then was sent to TCU where she has been until 03/19 when she was d/c'd home with [facility] for PT/OT. Currently living with daughter. Daughter and son in law in attendance at appt. Currently on doxycycline for bronchitis but wheezing not improving, last dose due on 03/23. Has appt with Dr. Dawn later today for injection, plavix has been held. Past medical history, appointments, medications, allergies reviewed. 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 blood sugar diagnostic (BLOOD [...] Take 1 tablet by mouth once daily. (Patient taking differently: Take 10 mg by mouth once daily.) carvedilol (COREG) 3.125 mg tablet Take 3.125 [...] E11.9. Insulin: No, Brand covered by insurance MULTIVITS,CA,FE,OTH MIN (MULTIVITAMIN AND MINERAL ORAL) Take 1 [...] No Review of Symptoms REVIEW OF SYSTEMS SEE HPI EXAM: BP 169/65 Pulse 78 Wt 66 kg (145 lb 8.1 oz) BMI 25.77 kg/m? General Appearance: Well appearing, alert, in no acute distress, well-hydrated, well nourished.. Back:reflexes are 2+ and symmetric, motor and sensory appear to be normal Lungs: Positive findings: wheezing Shortness of breath: At rest Cough. Heart: RRR without murmur, gallop, or rubs. No ectopy. Peripheral Pulses: Normal. Health Maintenance List DTaP,Tdap,Td Vaccine(1 - Tdap) Never done RSV Vaccine(1 - 1-dose 75+ series) Never done Diabetic Foot Exam due on 11/27/2022 Bone Density Screening due on 07/23/2023 Covid-19 Vaccine( - season) due on 07/28/2025 Influenza Vaccine(1) due on 05/21/2025 HbA1C due on 07/26/2025 Urine Albumin:Creatinine Ratio due on 07/27/2025 Dilated Retinal Exam due on 09/19/2025 LDL Cholesterol due on 01/23/2026 Depression Screening due on 01/29/2026 Anxiety Screening due on 01/29/2026 Advance Directive Discussion Completed Medicare Advantage Annual Wellness Visit Completed Shingrix Vaccine Completed Pneumococcal Vaccine: 50+ Completed ASSESSMENT/PLAN: 1. Degeneration of intervertebral disc of lumbar region with discogenic back pain and lower extremity pain - ICD9: 722.52, ICD10: M51.362 (primary diagnosis) -Follow up with Dr. Dawn today as scheduled 2. Hyperlipidemia LDL goal <100 - ICD9: 272.4, ICD10: E78.5 - ATORVASTATIN 80 MG TABLET 3. Acute midline low back pain without sciatica - ICD9: 724.2, ICD10: M54.50 - ORPHENADRINE CITRATE ER 100 MG TABLET,EXTENDED RELEASE 4. Community acquired pneumonia, unspecified laterality - ICD9: 486, ICD10: J18.9 - Continue doxycycline through 03/23 - AMOXICILLIN 500 MG-POTASSIUM CLAVULANATE 125 MG TABLET Xu Varela APRN.Xu Layton APRN.CNP 03/21/2025 10:14 AM Signed Addended by: XU VARELA on: 03/21/2025 10:14 AM Modules accepted: Orders Allergies As of Date: 03/21/2025 Noted Allergy Reaction METFORMIN 03/13/2013 6 - Diarrhea MORPHINE 02/14/2016 8 - GI Upset OXYCODONE 02/14/2016 8 - GI Upset PREVACID (LANSOPRAZOLE) 07/20/2005 Date Reviewed: 03/21/2025 Reviewed by: Luana Degroot MA - Fully Assessed Reason for Visit: Hospital F/U [57] Primary Visit Diagnosis: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 For cholesterol.Disp: 90 tabletRfl: 3 orphenadrine ER (NORFLEX) 100 mg tabletTake 1 tablet by mouth once daily.Disp: Rfl: amoxicillin-clavulanate potassium (AUGMENTIN) 500-125 mg per tabletTake 1 tablet by mouth two times a day for 5 days.Disp: 10 tabletRfl: 0 ALBUMIN/CREATININE RATIO, URINE [SQUACR] Order #: [id number] FUTURE Prescriptions as of 03/21/2025 - atorvastatin (LIPITOR) 80 mg tablet Take 0.5 tablets by mouth daily at bedtime. For cholesterol. - orphenadrine ER (NORFLEX) 100 mg tablet Take 1 tablet by mouth once daily. - doxycycline monohydrate (MONODOX) 100 mg capsule Take 100 mg by mouth two times a day. - senna-docusate (SENNA-S) 8.6-50 mg per tablet Take 1 tablet by mouth two times a day. - oxyCODONE IR (ROXICODONE) 5 mg immediate release tablet Take 2.5 mg by mouth every 4 hours as needed for pain. - amoxicillin-clavulanate potassium (AUGMENTIN) 500-125 mg per tablet Take 1 tablet by mouth two times a day for 5 days. - blood sugar diagnostic (BLOOD GLUCOSE TEST) [...] 81 mg by mouth once daily. - povidone, PF, (IVIZIA, PF,) 0.5 % drop Use 1 Drop in eyes three times a day. - blood sugar diagnostic (BLOOD GLUCOSE TEST) test strip Test blood sugar(s) 1 times daily. Dx: E11.9. Insulin: No, Brand covered by insurance - MULTIVITS,-CA,FE,OTH MIN (MULTIVITAMIN AND MINERAL ORAL) Take 1 tablet by mouth once daily. - lancets(FREESTYLE LANCETS) use daily - blood glucose control highANDlow(FREESTYLE CONTROL SOLN) use as directed Meds Comments as of 05/09/2019: Problem List As Of Date 03/21/2025 Noted Resolved Controlled type 2 diabetes mellitus [...] 3b chronic kidney disease (HCC) [N18.32] 03/05/2025 Prescriptions ordered this encounter Disp Refills Start End ATORVASTATIN 80 MG TABLET 90 t* 3 03/21/2025 Class: Med Update Route: PO Sig: Take 0.5 tablets by mouth daily at bedtime. For cholesterol. ORPHENADRINE CITRATE ER 100 MG TABLE* 03/21/2025 Class: Med Update Route: PO Sig: Take 1 tablet by mouth once daily. AMOXICILLIN 500 MG-POTASSIUM CLAVULA* 10 t* 0 03/21/2025 03/26/2025 Route: PO Sig: Take 1 tablet by mouth two times a day for 5 days. Medications Discontinued During This Encounter Prescriptions - atorvastatin (LIPITOR) 80 mg tablet (Discontinued) Take 1 tablet by mouth daily at bedtime. For cholesterol. - orphenadrine ER (NORFLEX) 100 mg tablet (Discontinued) Take 1 tablet by mouth two times a day. Disposition: Return if symptoms worsen or fail to improve. Follow-up and Disposition History for Encounter Date Provider Department Center 03/21/2025 [id number] VARELA Neetu [facility] Encounter Status:Closed by XU VARELA on 03/21/25 CNPN Observed: 03/21/2025 12:00 AM Status: COMPLETED Source: [facility] Telephone (FAMIRI) LUCILLE THURMAN ([id number]) 1935 F Date Time Provider Department 03/21/25 ALLIE CHACON During your visit today, we recorded the following information about you: Shiela Cornelius RN 03/21/2025 12:14 PM Signed Arlen with [facility] calls to let provider know that following medication discrepancies were noted at start of care. Atorvastatin 80 mg 1/2 tablet not on their list. Correct dose so will add to their plan of care. Patient is using artificial tears and tylenol regular strength as needed. Added for medication update. Drug interaction between omeprazole and clopidogrel. YUDI Bedoya Mark D, MD 03/30/2025 2:30 PM Signed Delmy Chacon MD Allergies As of Date: 03/21/2025 Noted Allergy Reaction METFORMIN 03/13/2013 6 - Diarrhea MORPHINE 02/14/2016 8 - GI Upset OXYCODONE 02/14/2016 8 - GI Upset PREVACID (LANSOPRAZOLE) 07/20/2005 Date Reviewed: 03/21/2025 Reviewed by: Luana Degroot MA - Fully Assessed Reason for Visit: Patient Update [1234] Order(s):dextran 70-hypromellose (NATURAL BALANCE TEARS) 0.1-0.3 % ophthalmic solutionUse 1 drop in both eyes as needed.Disp: Rfl: acetaminophen (TYLENOL) 325 mg tabletTake 2 tablets by mouth every 6 hours as needed for pain.Disp: Rfl: Prescriptions as of 03/30/2025 - dextran 70-hypromellose (NATURAL BALANCE TEARS) 0.1-0.3 % ophthalmic solution Use 1 drop in both eyes as needed. - acetaminophen (TYLENOL) 325 mg tablet Take 2 tablets by mouth every 6 hours as needed for pain. - atorvastatin (LIPITOR) 80 mg tablet Take 0.5 tablets by mouth daily at bedtime. For cholesterol. - orphenadrine ER (NORFLEX) 100 mg tablet Take 1 tablet by mouth once daily. - doxycycline monohydrate (MONODOX) 100 mg capsule Take 100 mg by mouth two times a day. - senna-docusate (SENNA-S) 8.6-50 mg per tablet Take 1 tablet by mouth two times a day. - oxyCODONE IR (ROXICODONE) 5 mg immediate release tablet Take 2.5 mg by mouth every 4 hours as needed for pain. - blood sugar diagnostic (BLOOD GLUCOSE TEST) [...] 81 mg by mouth once daily. - povidone, PF, [...] of 05/09/2019: Problem List As Of Date 03/21/2025 Noted Resolved Controlled type 2 diabetes mellitus [...] 3b chronic kidney disease (HCC) [N18.32] 03/05/2025 Prescriptions ordered this encounter Disp Refills Start End DEXTRAN 70-HYPROMELLOSE 0.1 %-0.3 % * 03/30/2025 Class: Med Update Route: OU Sig: Use 1 drop in both eyes as needed. ACETAMINOPHEN 325 MG TABLET 03/30/2025 Class: Med Update Route: PO Sig: Take 2 tablets by mouth every 6 hours as needed for pain. Encounter Status:Closed by ALLIE CHACON on 03/30/25 CNPN Observed: 03/20/2025 12:00 AM Status: COMPLETED Source: [facility] LUCILLE THURMAN ([id number]) 1935 F Date Time Provider Department 03/20/[facility] During your visit today, we recorded the following information about you: Shiela Cornelius RN 03/20/2025 11:57 AM Signed Sheron PT calling from [facility] to report plan of care for patient and PT will visit patient two times a week for four weeks. PT will work with patient on pain management, strengthening, safety, and fall prevention. No call back needed unless provider has questions. YUDI Bedoya Mark D, MD 03/20/2025 2:37 PM Signed Note and agree Allie Chacon MD Allergies As of Date: 03/20/2025 Noted Allergy Reaction METFORMIN 03/13/2013 6 - Diarrhea MORPHINE 02/14/2016 8 - GI Upset OXYCODONE 02/14/2016 8 - GI Upset PREVACID (LANSOPRAZOLE) 07/20/2005 Date Reviewed: 03/05/2025 Reviewed by: Jenifer Guthrie MA - Fully Assessed Reason for Visit: [facility] PT POC [Other] Prescriptions as of 03/20/2025 - predniSONE (DELTASONE) 10 mg tablet Take [...] of 05/09/2019: Problem List As Of Date 03/20/2025 Noted Resolved Controlled type 2 diabetes mellitus [...] disease (HCC) [N18.32] 03/05/2025 Encounter Status:Closed by JENIFER GUTHRIE on 03/20/25 KRISTINE Observed: 03/07/2025 12:00 AM Status: COMPLETED Source: [facility] LUCILLE THURMAN ([id number]) 1935 F Date Time Provider Department 03/07/25 ALLIE CHACON [facility] During your visit today, we recorded [...] I agree with the advice given Allie Chacon MD Allergies As of Date: 03/07/2025 Noted Allergy Reaction METFORMIN 03/13/2013 6 - Diarrhea MORPHINE 02/14/2016 8 - GI Upset OXYCODONE 02/14/2016 8 - GI Upset PREVACID (LANSOPRAZOLE) 07/20/2005 Date Reviewed: 03/05/2025 Reviewed by: Jenifer Guthrie MA - Fully Assessed Reason for Visit: [...] (HCC) [N18.32] 03/05/2025 Encounter Status:Closed by ALLIE CHACON on 03/07/25 PROGRESS Observed: 03/05/2025 5:00 PM Status: COMPLETED Source: [facility] HNO ID: [id number] Author: ALLIE CHACON MD Service: ? Author Type: Physician Type: [...] any injury to the back. 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 Insulin: No, Brand covered by insurance MULTIVITS, W-CA,FE,OTH MIN (MULTIVITAMIN AND MINERAL ORAL) [...] lb 1.6 oz) SpO2 96% BMI 27.30 kg/m? General Appearance: Well appearing, alert, in [...] Completed Pneumococcal Vaccine: 50+ Completed Data reviewed [facility] ER report 03/03/25 in Scanned documents ASSESSMENT/PLAN: 1. Stage 3b chronic kidney disease (HCC) - ICD9: 585.3, ICD10: N18.32 (primary diagnosis) - eGFR: 42 Stable - Monitor; avoid NSAID 2. Acute midline low back pain without sciatica - ICD9: 724.2, ICD10: M54.50 - PREDNISONE 10 MG TABLET - ORPHENADRINE CITRATE ER 100 MG TABLET,EXTENDED RELEASE Call if not improving Follow up prn Medical Decision Making: Problems: Low: Acute, uncomplicated illness or injury Data: Unique source(s) for external note(s) reviewed: 1 Unique test result(s) reviewed: 1 Risk: Moderate: Drug management Medical Decision Making Level: 3 - Low Allie Chacon MD The documentation for this note was completed by Jenifer Guthrie MA acting as scribe for Allie Chacon MD. March 05, 2025 4:38 PM. Jenifer Guthrie MA CNOV Observed: 03/05/2025 5:00 PM Status: COMPLETED Source: [facility] MARILYNJLUCILLE Park ([id number]) 1935 F Date Time Provider Department 03/05/25 5:00 PM [facility] During your visit today, we recorded the following information about you: Pulse Respiration Blood pressure Weight 63/minute 14/minute 120/72 69.9 kg Allie Chacon MD 03/05/2025 6:46 PM Signed Chief Complaint Patient presents with: Back Pain: lower HPI Lucillegrant Thurman is a 89 year old female [...] any injury to the back. 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 Insulin: No, Brand covered by insurance MULTIVITS,-CA,FE,OTH MIN (MULTIVITAMIN AND MINERAL ORAL) Take 1 [...] lb 1.6 oz) SpO2 96% BMI 27.30 kg/m? General Appearance: Well appearing, alert, in [...] Vaccine Completed Advance Directive Discussion Completed Medicare Survata Annual Wellness Visit Completed Shingrix Vaccine Completed Pneumococcal Vaccine: 50+ Completed Data reviewed [facility] ER report 03/03/25 in Scanned documents ASSESSMENT/PLAN: 1. Stage 3b chronic kidney disease (HCC) - ICD9: 585.3, ICD10: N18.32 (primary diagnosis) - eGFR: 42 Stable - Monitor; avoid NSAID 2. Acute midline low back pain without sciatica - ICD9: 724.2, ICD10: M54.50 - PREDNISONE 10 MG TABLET - ORPHENADRINE CITRATE ER 100 MG TABLET,EXTENDED RELEASE Call if not improving Follow up prn Medical Decision Making: Problems: Low: Acute, uncomplicated illness or injury Data: Unique source(s) for external note(s) reviewed: 1 Unique test result(s) reviewed: 1 Risk: Moderate: Drug management Medical Decision Making Level: 3 - Low Allie Chacon MD The documentation for this note was completed by Jenifer Guthrie MA acting as scribe for Allie Chacon MD. March 05, 2025 4:38 PM. Jenifer Guthrie MA Allergies As of Date: 03/05/2025 Noted Allergy Reaction METFORMIN 03/13/2013 6 - Diarrhea MORPHINE 02/14/2016 8 - GI Upset OXYCODONE 02/14/2016 8 - GI Upset PREVACID (LANSOPRAZOLE) 07/20/2005 Date Reviewed: 03/05/2025 Reviewed by: Jenifer Guthrie MA - Fully Assessed Reason for Visit: Back Pain [12] Cmt: lower Primary Visit Diagnosis:Stage 3b chronic kidney disease (HCC) [N18.32] Other Visit Diagnosis:Acute midline low back pain without sciatica [M54.50] Order(s):predniSONE (DELTASONE) 10 mg tabletTake 4 tabs daily x5 days, then 2 tabs daily for 5 days, then 1 tab daily for 5 days.Disp: 35 tabletRfl: 0 orphenadrine ER (NORFLEX) 100 mg tabletTake 1 tablet by mouth two times a day.Disp: 14 tabletRfl: 1 Prescriptions as of 03/05/2025 - predniSONE (DELTASONE) 10 mg tablet Take [...] of 05/09/2019: Problem List As Of Date 03/05/2025 Noted Resolved Controlled type 2 diabetes mellitus [...] 3b chronic kidney disease (HCC) [N18.32] 03/05/2025 Prescriptions ordered this encounter Disp Refills Start End PREDNISONE 10 MG TABLET 35 t* 0 03/05/2025 03/20/2025 Sig: Take 4 tabs daily x5 days, then 2 tabs daily for 5 days, then 1 tab daily for 5 days. ORPHENADRINE CITRATE ER 100 MG TABLE* 14 t* 1 03/05/2025 Route: PO Sig: Take 1 tablet by mouth two times a day. Level of Service: OFFICE/OUTPATIENT ESTABLISHED LOW [facility] 20 MIN [19911] Additional E/M codes: VISIT CPLX INHERENT EANDM ASSOC WITH MED * Disposition: Return if symptoms worsen or fail to improve. Follow-up and Disposition History for Encounter Date Provider Department Center 03/05/2025 [id number] CHACON [facility] Encounter Status:Closed by ALLIE CHACON on 03/05/25 PROGRESS Observed: 02/22/2025 11:37 AM Status: COMPLETED Source: [facility] ID: [id number] Author: CATHY DIAZ RN Service: ? Author Type: Registered Nurse [...] Dates: 02/08/2025 - present Responsible Staff: Cathy Diaz, RN Support and Services: Hypertension, Diabetes, Chronic [...] ADLs, Fall Risk, SDOH 04/09/2025 02/08/2025 Cathy Diaz RN Complete Annual Medicare Wellness visit addressed 06/07/2025 02/08/2025 Cathy Diaz RN Complete/Scheduled Assessments CDM Assessment Symptoms: Are you experiencing any new or worsening symptoms that you need to talk about today?: No ADLs No documentation this encounter Fall Risk No documentation this encounter SDOH No documentation this encounter Interventions The following were addressed during this visit: - Bi-Weekly Outreach (Recurring) Disposition Based on curriculum and assessment coordinator, the following disposition is advised: No action needed Cathy Diaz RN February 22, 2025 11:37 AM CNPTOUTREACH Observed: 02/22/2025 12:00 AM Status: COMPLETED Source: [facility] Patient Outreach ([facility]) LUCILLE THURMAN ([id number]) 1935 F Date Time Provider Department 02/22/25 JOE, CATHY [facility] During your visit today, we recorded the following information about you: Cathy Diaz RN 02/22/2025 11:40 AM Signed CDM Care [...] Dates: 02/08/2025 - present Responsible Staff: Cathy Diaz, RN Support and Services: Hypertension, Diabetes, Chronic [...] ADLs, Fall Risk, SDOH 04/09/2025 02/08/2025 Cathy Diaz RN Complete Annual Medicare Wellness visit addressed 06/07/2025 02/08/2025 Cathy Diaz RN Complete/Scheduled Assessments CDM Assessment Symptoms: Are you experiencing any new or worsening symptoms that you need to talk about today?: No ADLs No documentation this encounter Fall Risk No documentation this encounter SDOH No documentation this encounter Interventions The following were addressed during this visit: - Bi-Weekly Outreach (Recurring) Disposition Based on curriculum and assessment coordinator, the following disposition is advised: No action needed Cathy Diaz RN February 22, 2025 11:37 AM Allergies [...] disc disease), cervical [M50.*09/29/2018 Encounter Status:Closed by CATHY DIAZ on 02/22/25 PROGRESS Observed: 02/08/2025 10:30 AM Status: COMPLETED Source: [facility] ID: [id number] Author: CATHY DIAZ, RN Service: ? Author Type: Registered Nurse [...] Dates: 02/08/2025 - present Responsible Staff: Cathy Diaz, YUDI Support and Services: Congestive Heart Failure (CHF), [...] ADLs, Fall Risk, SDOH 03/12/2025 02/08/2025 Cathy Diaz, YUDI Complete Annual Medicare Wellness visit addressed 05/11/2025 02/08/2025 Cathy Diaz, YUDI Complete/Scheduled Assessments CDM Assessment Medications: Do you [...] were you homeless or living in a group home (including now)?: No Transportation Needs In the [...] Your Physician Team - Month 1: Review Individual Blood Pressure Target (If established by provider) - Month 1: Provide HTN Education: When to call your Doctor, When to seek Emergency Care Disposition Based on curriculum and assessment coordinator, the following disposition is advised: No action needed Cathy Diaz RN February 08, 2025 10:30 AM CNPTOUTREACH Observed: 02/08/2025 12:00 AM Status: COMPLETED Source: [facility] Patient Outreach ([facility]) LUCILLE THURMAN ([id number]) 1935 F Date Time Provider Department [facility] your visit today, we recorded the following information about you: Cathy Diaz RN 02/08/2025 10:39 AM Signed CDM [facility] Telephonic Outreach Provider Action/ CD Update Called and spoke with the patient [...] Dates: 02/08/2025 - present Responsible Staff: Cathy Diaz, RN Support and Services: Congestive Heart Failure [...] ADLs, Fall Risk, SDOH 03/12/2025 02/08/2025 Cathy Diaz, YUDI Complete Annual Medicare Wellness visit addressed 05/11/2025 02/08/2025 Cathy Diaz, YUDI Complete/Scheduled Assessments CDM Assessment Medications: Do you [...] were you homeless or living in a group home (including now)?: No Transportation Needs In the [...] In the past 12 months has the [employer], gas, oil, or water charming charlie threatened to shut off services in your [...] Your Physician Team - Month 1: Review Individual Blood Pressure Target (If established by provider) - Month 1: Provide HTN Education: When to call your Doctor, When to seek Emergency Care Disposition Based on curriculum and assessment coordinator, the following disposition is advised: No action needed Cathy Diaz RN February 08, 2025 10:30 AM Allergies As of Date: 02/08/2025 Noted Allergy Reaction METFORMIN 03/13/2013 6 - Diarrhea MORPHINE 02/14/2016 8 - GI Upset OXYCODONE 02/14/2016 8 - GI Upset PREVACID (LANSOPRAZOLE) 07/20/2005 Date Reviewed: 01/29/2025 Reviewed by: Ashli Carter LPN - Fully Assessed Prescriptions as of 02/08/2025 - blood sugar diagnostic (BLOOD GLUCOSE TEST) [...] of 05/09/2019: Problem List As Of Date 02/08/2025 Noted Resolved Controlled type 2 diabetes mellitus [...] disc disease), cervical [M50.*09/29/2018 Encounter Status:Closed by CATHY DIAZ on 02/08/25 PROGRESS Observed: 01/29/2025 9:00 AM Status: COMPLETED Source: [facility] HNO ID: [id number] Author: IMTIAZ HODGE APRN.WINDOW [employer]ING SEWER Service: ? Author Type: Nurse Practitioner Type: [...] also taking Actos 15 mg, but her ediphone operator advised discontinuation due to potential renal effects. [...] mmol/L 12 Anion Gap 12 eGFR >=60 mL/min/1.73m? 42 (L) eGFR 42 (L) Cholesterol, Total [...] disease, without long-term current use of insulin ([facility]) (E11.22) Stage 3 chronic kidney disease, unspecified whether stage 3a or 3b CKD ([facility]) (N18.30) Hemoglobin A1c is 6.4%, [...] unspecified HF chronicity, unspecified heart failure type ([facility]) (I50.9) Currently managed with carvedilol, [...] of infection. 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 - Referral to [facility] for further evaluation and possible biopsy. 5. Screening for depression (Z13.31) Encounter for screening examination for other mental health and behavioral disorders (Z13.39) No signs of depression or other mental health disorders reported. Patient remains independent with no significant cognitive decline noted. Imtiaz Hodge APRN.CNP RTO in 6 months, sooner if needed. This note was partly generated using [employer] voice recognition dictation and may contain some misspelled or inaccurate words missed on review. Recording using [employer] software for draft documentation of the visit was discussed with the patient/authorized liability claims representative; all questions welcomed and answered. Patient/authorized liability claims representative agreed to proceed CNOV Observed: 01/29/2025 9:00 AM Status: COMPLETED Source: [facility] LUCILLE THURMAN ([id number]) 1935 F Date Time Provider Department 01/29/25 9:00 AM IMTIAZ HODGE During your visit today, we recorded the [...] also taking Actos 15 mg, but her ediphone operator advised discontinuation due to potential renal effects. [...] mmol/L 12 Anion Gap 12 eGFR >=60 mL/min/1.73m? 42 (L) eGFR 42 (L) Cholesterol, Total [...] disease, without long-term current use of insulin ([facility]) (E11.22) Stage 3 chronic kidney disease, unspecified whether stage 3a or 3b CKD ([facility]) (N18.30) Hemoglobin A1c is 6.4%, [...] unspecified HF chronicity, unspecified heart failure type ([facility]) (I50.9) Currently managed with carvedilol, [...] of infection. 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 - Referral to [facility] Dermatology for further evaluation and possible biopsy. 5. Screening for depression (Z13.31) Encounter for screening examination for other mental health and behavioral disorders (Z13.39) No signs of depression or other mental health disorders reported. Patient remains independent with no significant cognitive decline noted. Imtiaz Hodge APRN.WINDOW SHADE RING SEWER RTO in 6 months, sooner if needed. This note was partly generated using [employer] voice recognition dictation and may contain some misspelled or inaccurate words missed on review. Recording using [employer] software for draft documentation of the visit was discussed with the patient/authorized liability claims representative; all questions welcomed and answered. Patient/authorized liability claims representative agreed to proceed Imtiaz Hodge APRN.BERNARDO 01/29/2025 9:24 AM Signed We discussed your diabetes: - Your hemoglobin [...] towel, when sitting. - Continue the exercises you?ve been doing, as they may help. We [...] - I will refer you to a counseling psychologist at [facility] in [place] to evaluate and possibly remove the spot. Follow-up: - Your next blood work and kidney function check will be in 6 months. - A referral has been placed for dermatology at [facility]. Please schedule an appointment with them. If you have any new or worsening symptoms, please contact our office. Imtiaz Hodge APRN.WINDOW SHADE RING SEWER 01/30/2025 11:33 AM Signed Addended by: IMTIAZ HODGE on: 01/30/2025 11:33 AM Modules accepted: Level of Service Allergies As of Date: 01/29/2025 Noted Allergy Reaction METFORMIN 03/13/2013 6 - Diarrhea MORPHINE 02/14/2016 8 - GI Upset OXYCODONE 02/14/2016 8 - GI Upset PREVACID (LANSOPRAZOLE) 07/20/2005 Date Reviewed: 01/29/2025 Reviewed by: Ashli Carter LPN - Fully Assessed Reason for Visit: Medicare Wellness Exam [4060] Cmt: 6 mo Primary Visit Diagnosis: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 3 chronic kidney disease, without long-term current use of insulin (HCC) [E11.22, N18.30] Other Visit Diagnoses:Congestive heart failure, unspecified HF chronicity, unspecified heart failure type (HCC) [I50.9] Stage 3 chronic kidney disease, unspecified whether stage 3a or 3b CKD (HCC) [N18.30] Essential hypertension, benign [I10] Skin lesion [L98.9] Screening for depression [Z13.31] Encounter for screening examination for other mental health and behavioral disorders [Z13.39] Order(s):HEMOGLOBIN A1C [UKDOP8D] Order #: [id number] FUTURE COMPREHENSIVE METABOLIC PANEL [SQCMP] Order #: [id number] FUTURE COMPLETE BLOOD COUNT AND DIFFERENTIAL [SQCBCDIF] Order #: [id number] FUTURE LIPID PANEL, FASTING [SQLIPB] Order #: [id number] FUTURE ADVANCE CARE PLAN DISCUSSION [6199299] Order #: [id number]: 1 CONSULT TO DERMATOLOGY [9003] Order #: [id number]: 1 FUTURE DEPRESSION SCREENING [2808484] Order #: [id number]: 1 ANXIETY SCREENING [6095816] Order #: [id number]: 1 Prescriptions as of 01/30/2025 - losartan (COZAAR) 100 mg tablet Take [...] of 05/09/2019: Problem List As Of Date 01/29/2025 Noted Resolved Controlled type 2 diabetes mellitus [...] 09/28/2017 DDD (degenerative disc disease), cervical [M50.*09/29/2018 Other instructions from your clinician: We discussed your diabetes: - Your hemoglobin [...] towel, when sitting. - Continue the exercises you?ve been doing, as they may help. We [...] - I will refer you to a counseling psychologist at [facility] in [place] to evaluate and possibly remove the spot. Follow-up: - Your next blood work and kidney function check will be in 6 months. - A referral has been placed for dermatology at [facility]. Please schedule an appointment with them. If you have any new or worsening symptoms, please contact our office. Medications Discontinued During This Encounter Prescriptions - pioglitazone (ACTOS) 15 mg tablet (Discontinued) Reported on 01/29/2025 - glimepiride (AMARYL) 1 mg tablet (Discontinued) Take 1 tablet by mouth daily with breakfast. - metoprolol succinate ER (TOPROL XL) 25 mg 24 hr tablet (Discontinued) Reported on 10/11/2024 - lisinopril (ZESTRIL) 40 mg tablet (Discontinued) Take 1 tablet by mouth once daily. Level of Service: PPPS, SUBSEQ VISIT [G0439] Additional E/M codes: OFFICE/OUTPATIENT ESTABLISHED MOD MDM 3* VISIT CPLX INHERENT EANDM ASSOC WITH MED * Disposition: Return in about 6 months (around 08/01/2025) for Routine follow up . Follow-up and Disposition History for Encounter Date Provider Department Center 01/29/2025 [id number] HODGEWS [facility] Encounter Status:Closed by IMTIAZ HODGE on 01/29/25 BAS METAB 1999 PNL SERPL Collected: 02/2025 9:18 AM Status: F Source: [facility] Order Comment: Specimen Type : BLOOD SPECIMEN Ordering Facility: [facility] Address: [address], [place] [address] TYPE CODE TESTS RESULT OUT OF RANGE REFERENCE UNITS LAB 2345-7(LOINC) Glucose SerPl-mCnc 140 High 74-99 mg/dL Result Comment: The [place] Diabetes Association (ADA) provides guidance for cutoff [...] Standards of Medical Care in Diabetes 2016, [place] Diabetes Association. Diabetes Care. 2016.39(Suppl 1). LAB 3094-0(LOINC) BUN SerPl-mCnc 30 High 7-21 mg/ dL LAB 2160-0(LOINC) Creat SerPl-mCnc 1.24 High 0.58-0.96 mg/dL LAB 2951-2(LOINC) Sodium SerPl-sCnc 139 136-144 mmol/L LAB 2823-3(LOINC) Potassium SerPl-sCnc 4.6 3.7-5.1 mmol/L LAB 2075-0(LOINC) Chloride SerPl-sCnc 104 98-107 mmol/L LAB 2027-9(LOINC) CO2 SerPl-sCnc 23 22-30 mmo l/L LAB 23924-3(LOINC) Anion Gap SerPl-sCnc 12 8-15 mmol/L LAB 34244-2(LOINC) Calcium SerPl-mCnc 9.9 8.5-10.2 mg/dL LAB 57010-6(LOINC) Creatinine + eGFR Pnl SerPlBld 42 Low >=60 mL/min/1 .73m??? Result Comment: Estimated Gl omerular Filtration Rate (eGFR) is calculated using the 2020 CKD-EPI creatinine equation. This equation utilizes serum creatinine, sex, and age as parameters. The creatinine assay has traceable calibration to isotope dilution-mass spectrometry. Refer to KDIGO guidelines for clinical interpretation. In patients with unstable renal function, e.g. those with acute kidney injury, the eGFR may not accurately reflect actual GFR. Performed By: #### 03988-2 # ### [facility] CLIA [id number] [address] [place] [address] DEPRECATED HGB A1C BLD Collected: 01/23 9:12 AM Status: F Source: [facility] Order Comment: Specimen Type : BLOOD SPECIMEN Ordering Facility: [facility] Address: [address] [place] [address] TYPE CODE TESTS RESULT OUT OF RANGE REFERENCE UNITS LAB 4548-4(LOINC) HbA1c MFr Bld 6.4 High 4.3-5.6 % Result Comment: [place] Nanda betes Association guidelines indicate that patients with HgbA1c in the range 5.7-6.4% are at increased risk for development of diabetes, and intervention by lifestyle modification may be beneficial. HgbA1c greater or equal to 6.5% is considered diagnostic of diabetes. LAB 79162-0(LOINC) Est. average glucose Bld gHb Est-mCnc 137 mg/dL Result Comment: eAG: (Estima freddie average glucose) is a calculated value from HgbA1c and is liability claims representative of the average blood glucose level in the last 2-3 month period. Performed By: #### 77747-5 # ### [facility] CLIA [id number] [address] [place] [address] OF [place] COMP METAB 2000 PNL SERPL Collected: 9:12 AM Status: F Source: [facility] Order Comment: Specimen Type : BLOOD SPECIMEN Ordering Facility: [facility] Address: [address] [place] [address] TYPE CODE TESTS RESULT OUT OF RANGE REFERENCE UNITS LAB 2885-2(LOINC) Prot SerPl-mCnc 7.6 6.3-8.0 g/dL LAB 1751-7(LOINC) Albumin SerPl-mCnc 4.3 3.9-4.9 g/dL LAB 66201-3(LOINC) Calcium SerPl-mCnc 9.7 8.5-10.2 mg/dL LAB 1975-2(LOINC) Bilirub SerPl-mCnc 0.4 0.2-1.3 mg/dL LAB 6768-6(LOINC) ALP SerPl-cCnc 83 34-123 U/L LAB 1920-8(LOINC) AST SerPl-cCnc 24 13-35 U/L LAB 1742-6(LOINC) ALT SerPl-cCnc 16 7-38 U/L LAB 2345-7(INC) Glucose SerPl-mCnc 139 High 74-99 mg/dL Result Comment: The [place] Diabetes Association (ADA) provides guidance for cutoff [...] Standards of Medical Care in Diabetes 2016, [place] Diabetes Association. Diabetes Care. 2016.39(Suppl 1). LAB 3094-0(LOINC) BUN SerPl-mCnc 32 High 7-21 mg/ dL LAB 2160-0(LOINC) Creat SerPl-mCnc 1.24 High 0.58-0.96 mg/dL LAB 2951-2(INC) Sodium SerPl-sCnc 139 136-144 mmol/L LAB 2823-3(LOINC) Potassium SerPl-sCnc 4.6 3.7-5.1 mmol/L LAB 2075-0(LOINC) Chloride SerPl-sCnc 104 98-107 mmol/L LAB 8-9(LOINC) CO2 SerPl-sCnc 23 22-30 mmo l/L LAB 68311-9(LOINC) Anion Gap SerPl-sCnc 12 8-15 mmol/L LAB 60221-7(LOINC) Creatinine + eGFR Pnl SerPlBld 42 Low >=60 mL/min/1 .73m??? Result Comment: Estimated Gl omerular Filtration Rate (eGFR) is calculated using the 2020 CKD-EPI creatinine equation. This equation utilizes serum creatinine, sex, and age as parameters. The creatinine assay has traceable calibration to isotope dilution-mass spectrometry. Refer to KDIGO guidelines for clinical interpretation. In patients with unstable renal function, e.g. those with acute kidney injury, the eGFR may not accurately reflect actual GFR. Performed By: #### 64852-1, 43005-6 #### [facility] CLIA [id number] [address] [place] [address] STATES OF [facility] LIPID 1996 PNL SERPL Collected: 025 9:12 AM Status: F Source: [facility] Order Comment: Specimen Type : BLOOD SPECIMEN Ordering Facility: [facility] Address: [address] [place] [address] TYPE CODE TESTS RESULT OUT OF RANGE REFERENCE UNITS LAB 2092-3(LOINC) Cholest SerPl-mCnc 156 <200 mg/dL Result Comment: <200 mg/dL, Desirable 200-239 mg/dL, Borderline high >239 mg/dL, High LAB 2571-8(LOINC) Trigl SerPl-mCnc 83 <150 mg/dL Result Comment: <150 mg/dL, Normal 150-199 mg/dL, Borderline high 200-499 mg/dL, High >499 mg/dL, Very high LAB 5-9(LOINC) HDLc SerPl-mCnc 51 >39 mg/dL Result Comment: 40-59 mg/dL, Acceptable >59 mg/dL, High: Negative risk factor for coronary heart disease <40 mg/dL, Low: Positive risk factor for coronary heart disease LAB 2088-1(LOINC) LDLc SerPl-mCnc 89 <100 mg/dL Result Comment: <100 mg/dL, Optimal 100-129 mg/dL, Near optimal/above optimal 130-159 mg/dL, Borderline high 160-189 mg/dL, High >189 mg/dL, Very high Secondary prevention optimal LDL Cholesterol levels are recommended to be <70 mg/dL LDL cholesterol is calculated using the Da Silva-NIH equation. LAB 48397-3(LOINC) NonHDLc SerPl-mCnc 105 <130 mg/dL Result Comment: <130 mg/dL, Optimal 130-159 mg/dL, Near optimal/above optimal 160-189 mg/dL, Borderline high 190-219 mg/dL, High >219 mg/dL, Very high Secondary prevention optimal non HDL Cholesterol levels are recommended to be <100 mg/dL LAB 60325-0(LOINC) VLDLc SerPl Calc-mCnc 13 <30 mg/dL LAB 9830-1(LOINC) Cholest/HDLc SerPl 3.06 <5.10 LAB 92555-4(LOINC) LDLc/HDLc SerPl 1.75 <2.54 Result Comment: Reference: 1. National Cholesterol Education Program ATP III Guideline At-A-Glance Quick Desk Reference: National Heart, Lung, and Blood [place]. National Institutes of Health. 2001: NIH Publication No. 01-3305. 2. An International Atherosclerosis Society position paper: global recommendations for the management of dyslipidemia: executive summary, Atherosclerosis. 2014: 232(2):410-413. LAB FT FASTING TIME 15 hrs Performed By: #### 90227-7, 80053-4 #### [facility] CLIA [id number] [address] [place] [address] [place] BMP Collected: 10/30/2024 8:57 AM Status: F Source: [facility] TYPE CODE TESTS RESULT OUT OF RANGE REFERENCE UNITS LAB GLU(LOINC) Glucose Level 115 High 83-110 mg/dL LAB NA(LOINC) Sodium Level 138 136-145 mmol/L LAB K(LOINC) Potassium Level 4.6 3.5-5.1 mmol/L LAB CL(LOINC) Chloride 102 98-107 mmol/L LAB CO2(LOINC) CO2 30 23-31 mmol/L LAB EBAL(LOINC) Electrolyte Balance 6.0 4.0-15.0 mEq/L LAB BUN(LOINC) BUN 41 High 7-18 mg/dL LAB CRE(LOINC) Creatinine Lvl (s) 1.48 High 0.55-1.02 mg/dL Result Comment: Testing perf ormed on Siemens Dimension EXL analyzer using a modified kinetic Aram technique. LAB BC(LOINC) BUN/Creatinine Ratio 28 High 7-27 ratio LAB CA(LOINC) Calcium Lvl 9.5 8.4-10.2 mg/dL Performed By: #### BMP, GFR #### [address] [place], [place] [address] .GFR Collected: 10/30/2024 8:57 AM Status: F Source: [facility] TYPE CODE TESTS RESULT OUT OF RANGE REFERENCE UNITS LAB eGFR(LOINC) Estimated Glomerular Filtration Rate 34 ml/min/1. 73sqm Result Comment: Stages of Chronic Kidney Disease [...] calculate the eGFR results. Performed By: #### BMP, GFR #### [address] [place], [place] [address] PROGRESS Observed: 10/26/2024 1:21 PM Status: COMPLETED Source: [facility] ID: [id number] Author: IZA SORIANO RN Service: ? Author Type: Registered Nurse Type: Progress Notes Filed: 10/26/2024 13:26 Note Text: Transitional Care Management (TCM) Follow-Up Note PCP Update / Actionable Items N/A - No specialty updates needed Patient Source: Wol-qi-Lqhe[place]k (OON) Discharge Outreach Summary: Spoke with kaity Huerta - patient prefers due to SNOQUALMIE per last encounter. Doing well at home, [...] days Care Management partners utilized: N/A Iza Soriano RN October 26, 2024 1:24 PM DEJON Observed: 10/26/2024 12:00 AM Status: COMPLETED Source: [facility] Patient Outreach ([facility]) LUCILLE THURMAN ([id number]) 1935 F Date Time Provider Department 10/26/24 IZA SORIANOBrandon During your visit today, we recorded the following information about you: Iza Soriano RN 10/26/2024 1:26 PM Signed Transitional Care Management (TCM) Follow-Up Note PCP Update / Actionable Items N/A - No specialty updates needed Patient Source: Vwj-iy-Qrqjlnq (OON) Discharge Outreach Summary: Spoke with daughter Deanna - patient prefers due to SNOQUALMIE per last encounter. Doing well at home, [...] days Care Management partners utilized: N/A Iza Soriano RN October 26, 2024 1:24 PM Allergies [...] disc disease), cervical [M50.*09/29/2018 Encounter Status:Closed by IZA SORIANO on 10/26/24 KRISTINE Observed: 10/20/2024 12:00 AM Status: COMPLETED Source: [facility] LUCILLE THURMAN ([id number]) 1935 F Date Time Provider Department 10/20/24 ALLIE CHACON During your visit today, we recorded the following information about you: Sheron Torres 10/20/2024 11:13 AM Signed Lucille is calling Allie Chacon MD today to request Orders (Handicap placard) Please call patient when created. Patient has been identified by name and birthdate. Duration of symptoms: N/A Person calling: self Call patient at: at home [phone] (home) [phone] (work) [phone] (cell) Was an appointment scheduled: No Closing statement: Chelle Avina MA 10/20/2024 11:18 AM Signed See request below. Call pt once complete and ask if pt wants to picker or have mailed to her. ZEV [...] Reason for Visit: Orders [681] Cmt: Handicap placbabatunde Prescriptions as of 10/20/2024 - carvedilol (COREG) [...] Encounter Status:Closed by CHELLE TORRE on 10/20/24 PROGRESS Observed: 10/19/2024 10:09 AM Status: COMPLETED Source: [facility] HNO ID: [id number] Author: CHINYERE PABON RN Service: ? Author Type: Registered Nurse Type: Progress Notes Filed: 10/19/2024 10:20 Note Text: Transitional Care Management (TCM) Follow-Up Note PCP Update / Actionable Items N/A - No specialty updates needed Patient Source: Sde-ka-Facaacv (OON) Discharge Outreach Summary: Pt reports she is feeling well. Denies any SOB , leg swelling. Taking lasix 1/2 every other day. Noted daughter reaching out to neph. locally for appt . Pt states she is SNOQUALMIE and prefers additional f/u calls be made to her daughter. Patient discharged from [facility] Hospital Discharge date: 10/08/24 Admitted for: SOB/ [...] Pabon RN October 19, 2024 10:17 AM CNPTOUTREACH Observed: 10/19/2024 12:00 AM Status: COMPLETED Source: [facility] Patient Outreach ([facility]) LUCILLE THURMAN ([id number]) 1935 F Date Time Provider Department 10/19/24 [facility] During your visit today, we recorded the following information about you: Chinyere Pabon RN 10/19/2024 10:20 AM Signed Transitional Care Management (TCM) Follow-Up Note PCP Update / Actionable Items N/A - No specialty updates needed Patient Source: Ytz-lr-Yahcuxi (OON) Discharge Outreach Summary: Pt reports she is feeling well. Denies any SOB , leg swelling. Taking lasix 1/2 every other day. Noted daughter reaching out to neph. locally for appt . Pt states she is SNOQUALMIE and prefers additional f/u calls be made to her daughter. Patient discharged from [facility] Discharge date: 10/08/24 Admitted for: SOB/ [...] [M50.*09/29/2018 Encounter Status:Closed by CHINYERE PABON on 10/19/24 COMP METAB 2000 PNL SERPL Collected: 10:04 AM Status: F Source: [facility] Order Comment: Specimen Type : BLOOD SPECIMEN Ordering Facility: [facility] Address: [address] [place] [address] TYPE CODE TESTS RESULT OUT OF RANGE REFERENCE UNITS LAB 2885-2(LOINC) Prot SerPl-mCnc 7.3 6.3-8.0 g/dL LAB 1751-7(LOINC) Albumin SerPl-mCnc 3.9 3.9-4.9 g/dL LAB 80702-2(LOINC) Calcium SerPl-mCnc 9.8 8.5-10.2 mg/dL LAB 1975-2(LOINC) Bilirub SerPl-mCnc 0.5 0.2-1.3 mg/dL LAB 6768-6(LOINC) ALP SerPl-cCnc 73 34-123 U/L LAB 1920-8(LOINC) AST SerPl-cCnc 30 13-35 U/L LAB 1742-6(LOINC) ALT SerPl-cCnc 21 7-38 U/L LAB 2345-7(LOINC) Glucose SerPl-mCnc 77 74-99 mg/dL Result Comment: The [place] Diabetes Association (ADA) provides guidance for cutoff [...] Standards of Medical Care in Diabetes 2016, [place] Diabetes Association. Diabetes Care. 2016.39(Suppl 1). LAB 3094-0(LOINC) BUN SerPl-mCnc 31 High 7-21 mg/ dL LAB 2160-0(LOINC) Creat SerPl-mCnc 1.46 High 0.58-0.96 mg/dL LAB 2951-2(LOINC) Sodium SerPl-sCnc 140 136-144 mmol/L LAB 2823-3(LOINC) Potassium SerPl-sCnc 4.8 3.7-5.1 mmol/L LAB 2075-0(LOINC) Chloride SerPl-sCnc 105 98-107 mmol/L LAB 2028-9(LOINC) CO2 SerPl-sCnc 24 22-30 mmo l/L LAB 28167-1(LOINC) Anion Gap SerPl-sCnc 11 8-15 mmol/L LAB 78708-5(LOINC) Creatinine + eGFR Pnl SerPlBld 34 Low >=60 mL/min/1 .73m??? Result Comment: Estimated Gl omerular Filtration Rate (eGFR) is calculated using the 2020 CKD-EPI creatinine equation. This equation utilizes serum creatinine, sex, and age as parameters. The creatinine assay has traceable calibration to isotope dilution-mass spectrometry. Refer to KDIGO guidelines for clinical interpretation. In patients with unstable renal function, e.g. those with acute kidney injury, the eGFR may not accurately reflect actual GFR. Performed By: #### 32233-8 # ### [facility] CLIA [id number] [address] [place] [address] STATES OF [place] PROGRESS Observed: 10/12/2024 9:59 AM Status: COMPLETED Source: [facility] HNO ID: [id number] Author: CHINYERE PABON RN Service: ? Author Type: Registered Nurse Type: Progress Notes Filed: 10/12/2024 10:10 Note Text: Transition Care Management (TCM) Initial Outreach PCP Update / Actionable Items HRTIC TCM Home Visit Referral Source of Stratification: [facility] Hospital Admission Status: Discharged Readmission Risk Score: n/a Patient's zip code: [address] Is zip code within program service area: No Patient meets program referral criteria: No Patient does not qualify for High Risk TCM Home Visit program due to: Patient's zip code is not located within program service area Readmission Risk Score does not meet criteria Disposition: Patient does not qualify for HRTIC, will provide TCM outreach follow-up for 30-days Patient Source: Zzu-iq-Klugfer (OON) Discharge Outreach Summary: Chart reviewed. Pt seen with PCP office for discharge follow up yesterday. TCM will continue to follow and attempt outreach next week. Patient discharged from [facility] hospital Discharge date: 10/08/24 Admitted for: SOB/ Readmission Risk: n/a Value-Based Contract: Beryl BROTHERS Contact: Contact made with patient: N/A - Next outreach attempt scheduled for the next week. Chinyere Pabon RN October 12, 2024 10:10 AM CNPTOUTREACH Observed: 10/12/2024 12:00 AM Status: COMPLETED Source: [facility] Patient Outreach ([facility]) LUCILLE THURMAN ([id number]) 1935 F Do not c* Date Time Provider Department 10/12/24 CHINYERE PABON [facility] During your visit today, we recorded the following information about you: Chinyere Pabon RN 10/12/2024 10:10 AM Signed Transition Care Management (TCM) Initial Outreach PCP Update / Actionable Items HRTIC TCM Home Visit Referral Source of Stratification: [facility] Hospital Admission Status: Discharged Readmission Risk Score: n/a Patient's zip code: [address] Is zip code within program service area: No Patient meets program referral criteria: No Patient does not qualify for High Risk TCM Home Visit program due to: Patient's zip code is not located within program service area Readmission Risk Score does not meet criteria Disposition: Patient does not qualify for HRTIC, will provide TCM outreach follow-up for 30-days Patient Source: Ytz-ok-Xdedgze (OON) Discharge Outreach Summary: Chart reviewed. Pt seen with PCP office for discharge follow up yesterday. TCM will continue to follow and attempt outreach next week. Patient discharged from [facility] hospital Discharge date: 10/08/24 Admitted for: SOB/ [...] Of Care [4074] Cmt: TCM / OON [facility] 10/08/24 Prescriptions as of 10/12/2024 - [...] Encounter Status:Closed by CHINYERE PABON on 10/12/24 PROGRESS Observed: 10/11/2024 2:00 PM Status: COMPLETED Source: [facility] ID: [id number] Author: TREVA SANDOVAL APRN.WINDOW SHADE RING SEWER Service: ? Author Type: Nurse Practitioner Type: [...] appointment. 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 PHYSICAL EXAM: General Appearance: Well appearing, alert, [...] Gait normal. Sensation grossly intact.. Latest Ref Rn 10/10/2024 WBC 3.70 - 11.00 k/uL 7.31 [...] Abs Lymph 1.00 - 4.00 k/uL 1.06 [place]% % 9.0 Abs [place] <0.87 k/uL 0.66 Eosin% % 2.6 Abs [...] 8 - 15 mmol/L 9 eGFR >=60 mL/min/1.73m? 39 (L) Legend: (L) Low (H) High [...] and benefit of weight loss. BMI 27.34 kg/(m2) - Instructed to monitor fasting sugars at home - eGFR: 39 Worsening Follow-up as scheduled or sooner pending lab results. Discussed treatment plan and patient voices understanding. Patient's questions answered appropriately. Medications and potential side effects were discussed and patient voices understanding. Treva Sandoval APRN.CNP This note was partially generated using [employer] voice recognition system. Note was reviewed for accuracy. There may be minor misspellings or grammar miscues with [employer] voice recognition. 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 PHYSICAL EXAM: General Appearance: Well appearing, alert, [...] Gait normal. Sensation grossly intact.. Latest Ref Rn 10/10/2024 WBC 3.70 - 11.00 k/uL 7.31 [...] Abs Lymph 1.00 - 4.00 k/uL 1.06 [place]% % 9.0 Abs [place] <0.87 k/uL 0.66 [place]% % 2.6 Abs [...] 8 - 15 mmol/L 9 eGFR >=60 mL/min/1.73m? 39 (L) Legend: (L) Low (H) High [...] and benefit of weight loss. BMI 27.34 kg/(m2) - Instructed to monitor fasting sugars at home - eGFR: 39 Worsening Follow-up as scheduled or sooner pending lab results. Discussed treatment plan and patient voices understanding. Patient's questions answered appropriately. Medications and potential side effects were discussed and patient voices understanding. Treva Sandoval APRN.BERNARDO This note was partially generated using [employer] voice recognition system. Note was reviewed for accuracy. There may be minor misspellings or grammar miscues with [employer] voice recognition. Treva Sandoval APRN.CNP 10/11/2024 2:32 PM Addendum Get repeat labs in 1 week to [...] as scheduled or sooner pending test results. Allergies As of Date: 10/11/2024 Noted Allergy Reaction METFORMIN 03/13/2013 6 - Diarrhea MORPHINE 02/14/2016 8 - GI Upset OXYCODONE 02/14/2016 8 - GI Upset PREVACID (LANSOPRAZOLE) 07/20/2005 Date Reviewed: 10/11/2024 Reviewed by: Arnold Gottlieb LPN - Fully Assessed Reason for Visit: Follow Up [171] Cmt: 4 day Hospital follow up Primary Visit Diagnosis:Hospital discharge follow-up [Z09] Other Visit Diagnoses:Congestive heart failure, unspecified HF chronicity, unspecified heart failure type (HCC) [I50.9] Elevated troponin [R79.89] Essential hypertension, benign [I10] Stage 3 chronic kidney disease, unspecified whether stage 3a or 3b CKD (HCC) [N18.30] 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 3 chronic kidney disease, without long-term current use of insulin (HCC) [E11.22, N18.30] Order(s):COMPREHENSIVE METABOLIC PANEL [SQCMP] Order #: [id number] FUTURE Prescriptions as of 10/11/2024 - carvedilol (COREG) 3.125 mg tablet Take [...] of 05/09/2019: Problem List As Of Date 10/11/2024 Noted Resolved Controlled type 2 diabetes mellitus [...] 09/28/2017 DDD (degenerative disc disease), cervical [M50.*09/29/2018 Other instructions from your clinician: Get repeat labs in 1 week to [...] as scheduled or sooner pending test results. Level of Service: OFFICE/OUTPATIENT ESTABLISHED MOD MDM 30 MIN [87864] Additional E/M codes: VISIT CPLX INHERENT EANDM ASSOC WITH MED * Disposition: Return if symptoms worsen or fail to improve. Follow-up and Disposition History for Encounter Date Provider Department Center 10/11/2024 [id number], ASHLEY FAMPWS [facility] [place] Encounter Status:Closed by TREVA SANDOVAL on 10/11/24 CBC W AUTO DIFF BLD Collected: 10/10/2024 9:[address] atus: F Source: [facility] Order Comment: Specimen Type : BLOOD SPECIMEN Ordering Facility: [facility] Address: [address] [place] [address] TYPE CODE TESTS RESULT OUT OF RANGE REFERENCE UNITS LAB 6690-2([facility]) WBC # Bld Auto 7.31 3.70-11.00 k/uL LAB 789-8(INC) RBC # Bld Auto 3.49 Low 3.90-5.20 m/ uL LAB 718-7(INC) Hgb Bld-mCnc 10.6 Low 11.5-15.5 g/dL LAB 4544-3(INC) Hct VFr Bld Auto 33.1 Low 36.0-46.0 % LAB 787-2(LOINC) MCV RBC Auto 94.8 80.0-100.0 fL LAB 785-6(INC) MCH RBC Qn Auto 30.4 26.0-34.0 p g LAB 786-4(LOINC) MCHC RBC Auto-mCnc 32.0 30.5-36.0 g/dL LAB 36661-3(INC) RDW RBC-Rto 13.7 11.5-15.0 % LAB 777-3(INC) Platelet # Bld Auto 223 150-400 k/uL LAB 22643-8(LOINC) PMV Bld Auto 9.7 9.0-12.7 fL LAB 770-8(LOINC) Neutrophils/leuk NFr Bld Auto 72.8 % LAB 751-8(LOINC) Neutrophils # Bld Auto 5.32 1.45-7.50 k/uL LAB 736-9(LOINC) Lymphocytes/leuk NFr Bld Auto 14.5 % LAB 731-0(LOINC) Lymphocytes # Bld Auto 1.06 1.00-4.00 k/uL LAB 5905-5(LOINC) Monocytes/leuk NFr Bld Auto 9.0 % LAB 742-7(LOINC) Monocytes # Bld Auto 0.66 <0.87 k/uL LAB 713-8([facility]) Eosinophil/leuk NFr Bld Auto 2.6 % LAB 711-2([facility]) Eosinophil # Bld Auto 0.19 <0.46 k/uL LAB 706-2([facility]) Basophils/leuk NFr Bld Auto 0.8 % LAB 704-7([facility]) Basophils # Bld Auto 0.06 <0.11 k/uL LAB 42326-6([facility]) Imm Granulocytes/renae k NFr Bld Auto 0.3 % LAB 99844-8([facility]) Imm Granulocytes # Bld Auto <0.03 <0.10 k/uL LAB 98795-2([facility]) nRBC/100 WBC Bld-Rto 0.0 /100 WBC LAB 771-6([facility]) nRBC # Bld Auto <0.01 <0.01 k/u L LAB 12788-7([facility]) Differential method Bld Auto Performed By: #### 89151-8 # ### [facility] CLIA [id number] [address] [place] [address] [place] COMP METAB 2000 PNL SERPL Collected: 9:15 AM Status: F Source: [facility] Order Comment: Specimen Type : BLOOD SPECIMEN Ordering Facility: [facility] Address: [address] [place] [address] TYPE CODE TESTS RESULT OUT OF RANGE REFERENCE UNITS LAB 2885-2([facility]) Prot SerPl-mCnc 7.3 6.3-8.0 g/dL LAB 1751-7([facility]) Albumin SerPl-mCnc 3.9 3.9-4.9 g/dL LAB 98832-1([facility]) Calcium SerPl-mCnc 9.4 8.5-10.2 mg/dL LAB 1975-2([facility]) Bilirub SerPl-mCnc 0.7 0.2-1.3 mg/dL LAB 6768-6([facility]) ALP SerPl-cCnc 82 34-123 U/L LAB 1920-8(INC) AST SerPl-cCnc 37 High 13-35 U/L LAB 1742-6(LOINC) ALT SerPl-cCnc 32 7-38 U/L LAB 2345-7(LOINC) Glucose SerPl-mCnc 151 High 74-99 mg/dL Result Comment: The [place] Diabetes Association (ADA) provides guidance for cutoff [...] Standards of Medical Care in Diabetes 2016, [place] Diabetes Association. Diabetes Care. 2016.39(Suppl 1). LAB 3094-0(LOINC) BUN SerPl-mCnc 28 High 7-21 mg/ dL LAB 2160-0(LOINC) Creat SerPl-mCnc 1.31 High 0.58-0.96 mg/dL LAB 2951-2(LOINC) Sodium SerPl-sCnc 139 136-144 mmol/L LAB 2823-3(LOINC) Potassium SerPl-sCnc 4.5 3.7-5.1 mmol/L LAB 2075-0(LOINC) Chloride SerPl-sCnc 107 98-107 mmol/L LAB 2028-9(LOINC) CO2 SerPl-sCnc 23 22-30 mmo l/L LAB 65321-5(LOINC) Anion Gap SerPl-sCnc 9 8-15 mmol/L LAB 36291-6(LOINC) Creatinine + eGFR Pnl SerPlBld 39 Low >=60 mL/min/1 .73m??? Result Comment: Estimated Gl omerular Filtration Rate (eGFR) is calculated using the 202 CKD-EPI creatinine equation. This equation utilizes serum creatinine, sex, and age as parameters. The creatinine assay has traceable calibration to isotope dilution-mass spectrometry. Refer to KDIGO guidelines for clinical interpretation. In patients with unstable renal function, e.g. those with acute kidney injury, the eGFR may not accurately reflect actual GFR. Performed By: #### 17409-2 # ### [facility] CLIA [id number] [address] [place], [place] [address] STATES OF [facility] KRISTINE Observed: 10/09/2024 12:00 AM Status: COMPLETED Source: [facility] Telephone (FAMPWS) LUCILLE THURMAN ([id number]) 1935 F Do not c* Date Time Provider Department 10/09/24 TREVA SANDOVAL During your visit today, we recorded the following information about you: Arnold Gottlieb LPN 10/09/2024 9:19 AM Addendum Talked to Pt son in law. Pt needs labs today and appointment on . Pt also needs a Rx of amlodipine 5 mg sent to [facility] BRANDY Perry Ashley, APRN.WINDOW SHADE RING SEWER 10/09/2024 9:40 AM Signed Noted, CMP and [...] 5 COMPREHENSIVE METABOLIC PANEL [SQCMP] Order #: [id number] FUTURE COMPLETE BLOOD COUNT AND DIFFERENTIAL [SQCBCDIF] Order #: [id number] FUTURE Prescriptions as of 10/09/2024 - amLODIPine [...] Encounter Status:Closed by ARNOLD GOTTLIEB on 10/09/24 KRISTINE Observed: 09/18/2024 12:00 AM Status: COMPLETED Source: [facility] LEANALUCILLE ([id number]) 1935 F Do not c* Date Time Provider Department 09/18/24 ALLIE CHACON During your visit today, we recorded the [...] when she got home she decided to picker sticks around her trailer. Patient states that she had to sit down after picking up stick. Please review and advise, YUDI Parikh Ashley, APRN.WINDOW SHADE RING SEWER 09/18/2024 10:28 AM Signed Can you please [...] Encounter Status:Closed by MARLENA HAMPTON on 09/27/24 PROGRESS Observed: 09/14/2024 11:40 AM Status: COMPLETED Source: [facility] ID: [id number] Author: TREVA SANDOVAL APRN.WINDOW SHADE RING SEWER Service: ? Author Type: Nurse Practitioner Type: [...] Lisinopril 40 mg daily. Checking BP at dava034's-160/50-70's. Has noticed increased lower leg swelling since [...] of fall Hyperlipidemia Inflammatory disease of breast custodial (current) use 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 custodial (current) use of oral hypoglycemic drugs Lumbar [...] kg (161 lb) SpO2 98% BMI 28.52 kg/m? PHYSICAL EXAM: General Appearance: Well appearing, alert, [...] and benefit of weight loss. BMI 28.52 kg/(m2) - If no improvement recommend consult with [...] discussed and patient voices understanding. Treva Sandoval APRN.WINDOW SHADE RING SEWER This note was partially generated using [employer] voice recognition system. Note was reviewed for accuracy. There may be minor misspellings or grammar miscues with Dragon voice recognition. MARKY Observed: 09/14/2024 11:40 AM Status: COMPLETED Source: [facility] Office Visit ([facility]) DENNISLUCILLE FLORES ([id number]) 1935 F Do not c* Date Time Provider Department 09/14/24 11:40 AM TREVA SANDOVAL [facility] During your visit today, we recorded the following information about you: Pulse Blood pressure Weight 75/minute 155/73 73 kg Treva Sandoval APRN.CNP 09/14/2024 2:01 PM Signed This is a 89 year old female who presents today with: Patient presents with: Follow Up: Blood pressure HISTORY OF PRESENT ILLNESS: Lucille S Marilynj is a 89 year old female. Patient presents with: Follow Up: Blood pressure Here in the office for blood pressure follow up. Earlier this month increased amlodipine 5 mg BID, still taking Lisinopril 40 mg daily. Checking BP at mzyh083's-160/50-70's. 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 PHYSICAL EXAM: General Appearance: Well appearing, alert, [...] and benefit of weight loss. BMI 28.52 kg/(m2) - If no improvement recommend consult with [...] disease, without long-term current use of insulin ([facility]) - ICD9: 250.40, 585.3, ICD10: [...] discussed and patient voices understanding. Treva Sandoval APRN.WINDOW SHADE RING SEWER This note was partially generated using [employer] voice recognition system. Note was reviewed for accuracy. There may be minor misspellings or grammar miscues with [employer] voice recognition. Treva Sandoval APRN.BERNARDO 09/14/2024 11:56 AM Addendum Stop amlodipine, leg swelling should improve. Elevate [...] left hand side next to austin byrnes Allergies As of Date: 09/14/2024 Noted Allergy Reaction METFORMIN 03/13/2013 6 - Diarrhea MORPHINE 02/14/2016 8 - GI Upset OXYCODONE 02/14/2016 8 - GI Upset PREVACID (LANSOPRAZOLE) 07/20/2005 Date Reviewed: 09/14/2024 Reviewed by: Lisa Sterling LPN - Fully Assessed Reason for Visit: Follow Up [171] Cmt: Blood pressure Primary Visit Diagnosis:Bilateral leg edema [R60.0] Other Visit Diagnoses:Essential hypertension, benign [I10] Stage 3 chronic kidney disease, unspecified whether stage 3a or 3b CKD (HCC) [N18.30] Hyperlipidemia LDL goal <100 [E78.5] 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 3 chronic kidney disease, without long-term current use of insulin (HCC) [E11.22, N18.30] Dry eye [H04.129] Order(s):metoprolol succinate ER (TOPROL XL) 25 mg 24 hr tabletTake 1 tablet by mouth once daily.Disp: 30 tabletRfl: 5 CONSULT TO NEPHROLOGY [9018] Order #: [id number]: 1 FUTURE atorvastatin (LIPITOR) 80 mg tabletTake 1 tablet by mouth daily at bedtime. For cholesterol.Disp: 90 tabletRfl: 3 glimepiride (AMARYL) 1 mg tabletTake 1 tablet by mouth daily with breakfast.Disp: 90 tabletRfl: 3 lisinopril (ZESTRIL) 40 mg tabletTake 1 tablet by mouth once daily.Disp: 90 tabletRfl: 3 pioglitazone (ACTOS) 15 mg tabletTake 1 tablet by mouth once daily.Disp: 90 tabletRfl: 3 povidone, PF, (IVIZIA, PF,) 0.5 % dropUse 1 Drop in eyes three times a day.Disp: 10 mLRfl: 5 Prescriptions as of 09/14/2024 - metoprolol succinate ER (TOPROL XL) 25 [...] as directed Meds Comments as of 05/09/2019: Medication notes this encounter AMLODIPINE 5 MG TABLET >> Treva Sandoval, GLO.WINDOW SHADE RING SEWER 09/14/2024 11:48 AM Leg Swelling Problem List As Of Date 09/14/2024 Noted Resolved Controlled type 2 diabetes mellitus [...] 09/28/2017 DDD (degenerative disc disease), cervical [M50.*09/29/2018 Other instructions from your clinician: Stop amlodipine, leg swelling should improve. Elevate [...] left hand side next to austin byrnes Prescriptions ordered this encounter Disp Refills Start End METOPROLOL SUCCINATE ER 25 MG TABLET* 30 t* 5 09/14/2024 03/13/2025 Route: ORAL Sig: Take 1 tablet by mouth once daily. ATORVASTATIN 80 MG TABLET 90 t* 3 09/14/2024 Route: ORAL Sig: Take 1 tablet by mouth daily at bedtime. For cholesterol. GLIMEPIRIDE 1 MG TABLET 90 t* 3 09/14/2024 09/09/2025 Route: ORAL Sig: Take 1 tablet by mouth daily with breakfast. LISINOPRIL 40 MG TABLET 90 t* 3 09/14/2024 Route: ORAL Sig: Take 1 tablet by mouth once daily. PIOGLITAZONE 15 MG TABLET 90 t* 3 09/14/2024 Route: ORAL Sig: Take 1 tablet by mouth once daily. IVIZIA (PF) 0.5 % EYE DROPS 10 mL 5 09/14/2024 09/14/2025 Route: OPHTHALMIC Sig: Use 1 Drop in eyes three times a day. Medications Discontinued During This Encounter Prescriptions - amLODIPine (NORVASC) 5 mg tablet (Discontinued) Take 1 tablet by mouth once daily. - polyethylene glycol 3350 (MIRALAX) 17 gram/dose powder (Discontinued) as needed. Take one scoop daily with glass of juice/water/etc. - glimepiride (AMARYL) 1 mg tablet (Discontinued) Take 1 tablet by mouth daily with breakfast. - lisinopril (ZESTRIL) 40 mg tablet (Discontinued) Take 1 tablet by mouth once daily. - pioglitazone (ACTOS) 15 mg tablet (Discontinued) Take 1 tablet by mouth once daily. - atorvastatin (LIPITOR) 80 mg tablet (Discontinued) Take 1 tablet by mouth daily at bedtime. For cholesterol. Disposition: Return in about 4 weeks (around 10/12/2024). Follow-up and Disposition History for Encounter Date Provider Department Center 09/14/2024 [id number] SANDOVAL [facility] [place] Encounter Status:Closed by TREVA SANDOVAL on 09/14/24 CNOV Observed: 08/28/2024 3:00 PM Status: COMPLETED Source: [facility] Office Visit ([facility]) LUCILLE THURMAN ([id number]) 1935 F Do not c* Date Time Provider Department 08/28/24 3:00 PM TREVA SANDOVAL During your visit today, we recorded the following information about you: Pulse Blood pressure Weight Height 73/minute 168/62 71.2 kg 1.6 m Treva Sandoval APRN.CNP 08/28/2024 9:36 PM Signed This [...] of fall Hyperlipidemia Inflammatory disease of breast 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 PHYSICAL EXAM: General Appearance: Well appearing, alert, [...] and benefit of weight loss. BMI 27.81 kg/(m2) - Instructed to call the office with [...] APRN.BERNARDO This note was partially generated using [employer] voice recognition system. Note was reviewed for accuracy. There may be minor misspellings or grammar miscues with [employer] voice recognition. Treva Sandoval APRN.CNP 08/28/2024 3:10 PM Signed Increase Amlodipine 5 mg twice daily Continue with Lisinopril Monitor blood pressure at home, goal 130/80's or less Watch processed foods and salt in the diet Message or call the office in office 1-2 weeks with BP readings Follow as scheduled Allergies As of Date: 08/28/2024 Noted Allergy Reaction METFORMIN 03/13/2013 6 - Diarrhea MORPHINE 02/14/2016 8 - GI Upset OXYCODONE 02/14/2016 8 - GI Upset PREVACID (LANSOPRAZOLE) 07/20/2005 Date Reviewed: 08/28/2024 Reviewed by: Crys Hernandez MA - Fully Assessed Reason for Visit: Blood Pressure [15] Primary Visit Diagnosis:Essential hypertension, benign [I10] Other Visit Diagnosis:Stage 3 chronic kidney disease, unspecified whether stage 3a or 3b CKD (HCC) [N18.30] Prescriptions as of 08/28/2024 - amLODIPine (NORVASC) 5 mg tablet Take 1 tablet by mouth once daily. - blood sugar diagnostic (BLOOD GLUCOSE TEST) test strip Test blood sugar(s) 1 times daily. Dx: E11.9. Insulin: No, Brand covered by insurance - omeprazole (PRILOSEC) 20 mg capsule take 1 capsule by mouth every other day 1/2 HOUR BEFORE BREAKFAST - glimepiride (AMARYL) 1 mg tablet Take 1 tablet by mouth daily with breakfast. - lisinopril (ZESTRIL) 40 mg tablet Take 1 tablet by mouth once daily. - pioglitazone (ACTOS) 15 mg tablet Take 1 tablet by mouth once daily. - atorvastatin (LIPITOR) 80 mg tablet Take 1 tablet by mouth daily at bedtime. For cholesterol. - polyethylene glycol 3350 (MIRALAX) 17 gram/dose powder Take one scoop daily with glass of juice/water/etc. - MULTIVITS,TH W-CA,FE,OTH MIN (MULTIVITAMIN AND MINERAL ORAL) Take 1 tablet by mouth once daily. - lancets(FREESTYLE LANCETS) use daily - blood glucose control highANDlow(FREESTYLE CONTROL SOLN) use as directed Meds Comments as of 05/09/2019: Problem List As Of Date 08/28/2024 Noted Resolved Controlled type 2 diabetes mellitus [...] 09/28/2017 DDD (degenerative disc disease), cervical [M50.*09/29/2018 Other instructions from your clinician: Increase Amlodipine 5 mg twice daily Continue with Lisinopril Monitor blood pressure at home, goal 130/80's or less Watch processed foods and salt in the diet Message or call the office in office 1-2 weeks with BP readings Follow as scheduled Disposition: Return if symptoms worsen or fail to improve. Follow-up and Disposition History for Encounter Date Provider Department Center 08/28/2024 [id number], ASHLEY FAMPWS [facility] [place] Encounter Status:Closed by TREVA SANDOVAL on 08/28/24 PROGRESS Observed: 08/28/2024 3:00 PM Status: COMPLETED Source: [facility] ID: [id number] Author: TREVA SANDOVAL APRN.WINDOW SHADE RING SEWER Service: ? Author Type: Nurse Practitioner Type: [...] of fall Hyperlipidemia Inflammatory disease of breast ballistics expert forensic (current) use 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 custodial (current) use of oral hypoglycemic drugs Lumbar [...] Wt 71.2 kg (157 lb) BMI 27.81 kg/m? PHYSICAL EXAM: General Appearance: Well appearing, alert, [...] and benefit of weight loss. BMI 27.81 kg/(m2) - Instructed to call the office with [...] discussed and patient voices understanding. Treva Sandoval APRN.WINDOW SHADE RING SEWER This note was partially generated using [employer] voice recognition system. Note was reviewed for accuracy. There may be minor misspellings or grammar miscues with Dragon voice recognition. PROGRESS Observed: 07/28/2024 9:20 AM Status: COMPLETED Source: [facility] HNO ID: [id number] Author: TREVA SANDOVAL APRN.WINDOW SHADE RING SEWER Service: ? Author Type: Nurse Practitioner Type: [...] of fall Hyperlipidemia Inflammatory disease of breast custodial (current) use 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 ballistics expert forensic (current) use of oral hypoglycemic drugs Lumbar [...] lb 13.6 oz) SpO2 98% BMI 27.96 kg/m? BP 158/70 Pulse 78 Resp 16 Wt 71.6 kg (157 lb 13.6 oz) SpO2 98% BMI 27.96 kg/m? PHYSICAL EXAM: General Appearance: Well appearing, alert, [...] 8 - 15 mmol/L 13 eGFR >=60 mL/min/1.73m? 49 (L) Cholesterol, Total <200 mg/dL 142 [...] and benefit of weight loss. BMI 27.96 kg/(m2) - eGFR: 49 Improving - Counseled on [...] discussed and patient voices understanding. Treva Sandoval APRN.WINDOW SHADE RING SEWER This note was partially generated using [employer] voice recognition system. Note was reviewed for accuracy. There may be minor misspellings or grammar miscues with [employer] voice recognition. CNOV Observed: 07/28/2024 9:20 AM Status: COMPLETED Source: [facility] LUCILLE THURMAN ([id number]) 1935 F Do not c* Date Time Provider Department 07/28/24 9:20 AM TREVA SANDOVAL During your visit today, we recorded the following information about you: Pulse Respiration Blood pressure Weight 78/minute 16/minute 158/70 71.6 kg Treva Sandoval APRN.BERNARDO 07/28/2024 12:28 PM Signed This is a [...] of fall Hyperlipidemia Inflammatory disease of breast ballistics expert forensic (current) use 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 ballistics expert forensic (current) use of oral hypoglycemic drugs Lumbar [...] lb 13.6 oz) SpO2 98% BMI 27.96 kg/m? BP 158/70 Pulse 78 Resp 16 Wt 71.6 kg (157 lb 13.6 oz) SpO2 98% BMI 27.96 kg/m? PHYSICAL EXAM: General Appearance: Well appearing, alert, [...] 8 - 15 mmol/L 13 eGFR >=60 mL/min/1.73m? 49 (L) Cholesterol, Total <200 mg/dL 142 [...] and benefit of weight loss. BMI 27.96 kg/(m2) - eGFR: 49 Improving - Counseled on [...] APRN.CNP This note was partially generated using [employer] voice recognition system. Note was reviewed for accuracy. There may be minor misspellings or grammar miscues with [employer] voice recognition. Treva Sandoval APRN.CNP 07/28/2024 9:40 AM Addendum Get repeat fasting labs in 6 months [...] eye exam, A1C came down 6.3! [facility] in [place], Dr. Vaughn at the [facility] and Dr. Machado with the [facility] Follow up in 1 month for blood pressure check and 6 months for normal follow up. Treva Sandoval APRN.CNP 07/28/2024 1:56 PM Signed Addended by: TREVA SANDOVAL on: 07/28/2024 01:56 PM Modules accepted: Orders Allergies As of Date: 07/28/2024 Noted Allergy Reaction METFORMIN 03/13/2013 6 - Diarrhea MORPHINE 02/14/2016 8 - GI Upset OXYCODONE 02/14/2016 8 - GI Upset PREVACID (LANSOPRAZOLE) 07/20/2005 Date Reviewed: 07/28/2024 Reviewed by: Arnold Gottlieb LPN - Fully Assessed Reason for Visit: 6 Month Exam [189] Primary Visit Diagnosis: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 3 chronic kidney disease, without long-term current use of insulin (HCC) [E11.22, N18.30] Other Visit Diagnoses:Essential hypertension, benign [I10] Stage 3 chronic kidney disease, unspecified whether stage 3a or 3b CKD (HCC) [N18.30] Hyperlipidemia LDL goal <100 [E78.5] Gastroesophageal reflux disease without esophagitis [K21.9] Order(s):COMPREHENSIVE METABOLIC PANEL [SQCMP] Order #: [id number] FUTURE HEMOGLOBIN A1C [UZTKF1A] Order #: [id number] FUTURE LIPID PANEL BASIC [SQLIPB] Order #: [id number] FUTURE amLODIPine (NORVASC) 5 mg tabletTake 1 tablet by mouth once daily.Disp: 90 tabletRfl: 3 Prescriptions as of 07/28/2024 - amLODIPine (NORVASC) 5 mg tablet Take 1 tablet by mouth once daily. - blood sugar diagnostic (BLOOD GLUCOSE TEST) test strip Test blood sugar(s) 1 times daily. Dx: E11.9. Insulin: No, Brand covered by insurance - omeprazole (PRILOSEC) 20 mg capsule take 1 capsule by mouth every other day 1/2 HOUR BEFORE BREAKFAST - glimepiride (AMARYL) 1 mg tablet Take 1 tablet by mouth daily with breakfast. - lisinopril (ZESTRIL) 40 mg tablet Take 1 tablet by mouth once daily. - pioglitazone (ACTOS) 15 mg tablet Take 1 tablet by mouth once daily. - atorvastatin (LIPITOR) 80 mg tablet Take 1 tablet by mouth daily at bedtime. For cholesterol. - polyethylene glycol 3350 (MIRALAX) 17 gram/dose powder Take one scoop daily with glass of juice/water/etc. - MULTIVITS,TH W-CA,FE,OTH MIN (MULTIVITAMIN AND MINERAL ORAL) Take 1 tablet by mouth once daily. - lancets(FREESTYLE LANCETS) use daily - blood glucose control highANDlow(FREESTYLE CONTROL SOLN) use as directed Meds Comments as of 05/09/2019: Medication notes this encounter HYDROCHLOROTHIAZIDE 12.5 MG CAPSULE >> Treva Sandoval, GLO.WINDOW SHADE RING SEWER 07/28/2024 1:56 PM kidney function Problem List As Of Date 07/28/2024 Noted Resolved Controlled type 2 diabetes mellitus [...] 09/28/2017 DDD (degenerative disc disease), cervical [M50.*09/29/2018 Other instructions from your clinician: Get repeat fasting labs in 6 months [...] eye exam, A1C came down 6.3! [facility] in [place], Dr. Vaughn at the [facility] and Dr. Machado with the [facility] Follow up in 1 month for blood pressure check and 6 months for normal follow up. Prescriptions ordered this encounter Disp Refills Start End AMLODIPINE 5 MG TABLET 90 t* 3 07/28/2024 07/28/2025 Route: ORAL Sig: Take 1 tablet by mouth once daily. Medications Discontinued During This Encounter Prescriptions - hydroCHLOROthiazide 12.5 mg capsule (Discontinued) Take 1 capsule by mouth once daily. - tiZANidine (ZANAFLEX) 4 mg tablet (Discontinued) Take 1 tablet by mouth every 8 hours as needed (muscle spasms). Disposition: Return in about 6 months (around 01/25/2025). Follow-up and Disposition History for Encounter Date Provider Department Center 07/28/2024 [id number], ASHLEY FAMPWS [facility] Encounter Status:Closed by TREVA SANDOVAL on 07/28/24 ALBUMIN/CREATININE RATIO, URINE Collect ed: 07/27/2024 8:49 AM Status: F Source: [facility] Order Comment: Specimen Type : URINE SPECIMEN Ordering Facility: [facility] Address: [address] [place] [address] TYPE CODE TESTS RESULT OUT OF RANGE REFERENCE UNITS LAB 2161-8(LOINC) Creat Ur-mCnc 52.9 20.0-300.0 m g/dL LAB 29404-5(LOINC ) Microalbumin Ur-mCnc 81.1 mg/L LAB 9318-7(LOINC) Albumin/Creat Ur 153 High <30 mg/g Result Comment: Adult Male a nd Female Nephrotic Criteria: <30 mg/g is considered normal to mildly increased 30-300 mg/g is considered moderately increased >300 mg/g is considered severely increased KDIGO. (2013). KDIGO 2012 Clinical Practice Guideline for the Evaluation and Management of Chronic Kidney Disease. Official Journal of the International Society of Nephrology, 3(1), 1-150. Performed By: #### UACR #### [facility] CLIA [id number] [address] [place] [address] [place] DEPRECATED HGB A1C BLD Collected: 07/27 8:19 AM Status: F Source: [facility] Comment: Specimen Type : BLOOD SPECIMEN Ordering Facility: [facility] Address: [address] [place] [address] TYPE CODE TESTS RESULT OUT OF RANGE REFERENCE UNITS LAB 4548-4(LOINC) HbA1c MFr Bld 6.3 High 4.3-5.6 % Result Comment: [place] Nanda betes Association guidelines indicate that patients with HgbA1c in the range 5.7-6.4% are at increased risk for development of diabetes, and intervention by lifestyle modification may be beneficial. HgbA1c greater or equal to 6.5% is considered diagnostic of diabetes. LAB 28191-5(LOINC) Est. average glucose Bld gHb Est-mCnc 134 mg/dL Result Comment: eAG: (Estima freddie average glucose) is a calculated value from HgbA1c and is liability claims representative of the average blood glucose level in the last 2-3 month period. Performed By: #### 10585-5 # ### [facility] CLIA [id number] [address] [place] [address] [place] COMP METAB 2000 PNL SERPL Collected: 8:19 AM Status: F Source: [facility] Comment: Specimen Type : BLOOD SPECIMEN Ordering Facility: [facility] Address: [address] [place] [address] TYPE CODE TESTS RESULT OUT OF RANGE REFERENCE UNITS LAB 2885-2(LOINC) Prot SerPl-mCnc 6.9 6.3-8.0 g/dL LAB 1751-7(LOINC) Albumin SerPl-mCnc 4.0 3.9-4.9 g/dL LAB 03342-8(LOINC) Calcium SerPl-mCnc 9.3 8.5-10.2 mg/dL LAB 1975-2(LOINC) Bilirub SerPl-mCnc 0.5 0.2-1.3 mg/dL LAB 6768-6(LOINC) ALP SerPl-cCnc 72 34-123 U/L LAB 1920-8(LOINC) AST SerPl-cCnc 27 13-35 U/L LAB 1742-6(LOINC) ALT SerPl-cCnc 16 7-38 U/L LAB 2345-7(LOINC) Glucose SerPl-mCnc 127 High 74-99 mg/dL Result Comment: The [place] Diabetes Association (ADA) provides guidance for cutoff [...] Standards of Medical Care in Diabetes 2016, [place] Diabetes Association. Diabetes Care. 2016.39(Suppl 1). LAB 3094-0(LOINC) BUN SerPl-mCnc 25 High 7-21 mg/ dL LAB 2160-0(LOINC) Creat SerPl-mCnc 1.08 High 0.58-0.96 mg/dL LAB 2951-2(LOINC) Sodium SerPl-sCnc 141 136-144 mmol/L LAB 2823-3(LOINC) Potassium SerPl-sCnc 4.4 3.7-5.1 mmol/L LAB 2075-0(LOINC) Chloride SerPl-sCnc 106 98-107 mmol/L LAB 2028-9(LOINC) CO2 SerPl-sCnc 22 22-30 mmo l/L LAB 10212-4(LOINC) Anion Gap SerPl-sCnc 13 8-15 mmol/L LAB 04208-5(LOINC) Creatinine + eGFR Pnl SerPlBld 49 Low >=60 mL/min/1 .73m??? Result Comment: Estimated Gl omerular Filtration Rate (eGFR) is calculated using the 202 CKD-EPI creatinine equation. This equation utilizes serum creatinine, sex, and age as parameters. The creatinine assay has traceable calibration to isotope dilution-mass spectrometry. Refer to KDIGO guidelines for clinical interpretation. In patients with unstable renal function, e.g. those with acute kidney injury, the eGFR may not accurately reflect actual GFR. Performed By: #### 82381-5, 14082-7 #### [facility] CLIA [id number] [address] [place] [address] [place] [address] [place] LIPID 1996 PNL SERPL Collected: 024 8:19 AM Status: F Source: [facility] Order Comment: Specimen Type : BLOOD SPECIMEN Ordering Facility: [facility] Address: [address] [place] [address] TYPE CODE TESTS RESULT OUT OF RANGE REFERENCE UNITS LAB 2093-3(LOINC) Cholest SerPl-mCnc 142 <200 mg/dL Result Comment: <200 mg/dL, Desirable 200-239 mg/dL, Borderline high >239 mg/dL, High LAB 2571-8(LOINC) Trigl SerPl-mCnc 100 <150 mg/dL Result Comment: <150 mg/dL, Normal 150-199 mg/dL, Borderline high 200-499 mg/dL, High >499 mg/dL, Very high LAB 2085-9(LOINC) HDLc SerPl-mCnc 42 >39 mg/dL Result Comment: 40-59 mg/dL, Acceptable >59 mg/dL, High: Negative risk factor for coronary heart disease <40 mg/dL, Low: Positive risk factor for coronary heart disease LAB 52884-0(LOINC) NonHDLc SerPl-mCnc 100 <130 mg/dL Result Comment: <130 mg/dL, Optimal 130-159 mg/dL, Near optimal/above optimal 160-189 mg/dL, Borderline high 190-219 mg/dL, High >219 mg/dL, Very high Secondary prevention optimal non HDL Cholesterol levels are recommended to be <100 mg/dL LAB FT FASTING TIME 10 hrs LAB 84805-1(LOINC) VLDLc SerPl Calc-mCnc 20 <30 mg/dL LAB 9830-1(LOINC) Cholest/HDLc SerPl 3.38 <5.10 LAB 2089-1(LOINC) LDLc SerPl-mCnc 80 <100 mg/dL Result Comment: <100 mg/dL, Optimal 100-129 mg/dL, Near optimal/above optimal 130-159 mg/dL, Borderline high 160-189 mg/dL, High >189 mg/dL, Very high Secondary prevention optimal LDL Cholesterol levels are recommended to be < 70 mg/dL LAB 88040-4(LOINC) LDLc/HDLc SerPl 1.90 <2.54 Result Comment: Reference: 1. National Cholesterol Education Program ATP III Guideline At-A-Glance Quick Desk Reference: National Heart, Lung, and Blood [place]. National Institutes of Health. 2001: NIH Publication No. 01-3305. 2. An International Atherosclerosis Society position paper: global recommendations for the management of dyslipidemia: executive summary, Atherosclerosis. 2014: 232(2):410-413. Performed By: #### 38775-1, 07645-0 #### [facility] CLIA [id number] [address] [place] [address] [place] ALLERGIES DATE TYPE / CODE NAME / CODE REACTION SEVERITY SOURCE 02/14/2016 DRUG INGREDI/073122335(S NOMED CT) MORPHINE GI UPSET [facility] 02/14/2016 DRUG INGREDI/520704483(S NOMED CT) OXYCODONE GI UPSET [facility] 03/13/2013 DRUG INGREDI/[id number](S NOMED CT) METFORMIN DIARRHEA [facility] 07/20/2005 DRUG INGREDI/[id number](S NOMED CT) LANSOPRAZOLE [facility] ENCOUNTERS ADMIT/DISCHARGE ACCOUNT NUMBER ADMITTING ENCOUNTER CLASS LOCATION SOURCE 06/15/2025/ 5 [id number] [facility] 05/22/2025/ 5 [id number] Ambulatory [facility] 03/21/2025/ 5 [id number] [facility] 03/05/2025/ 5 [id number] [facility] 01/29/2025/ 5 [id number] [facility] 01/23/2025/ 5 [id number] Ambulatory [facility] 10/30/2024/ 5 [id number] [facility] [place] [facility] 10/16/2024/ 5 [id number] [facility]/ 5 [id number] [facility] 10/10/2024/ 5 [id number] [facility] 09/14/2024/ 4 [id number] [facility] 08/28/2024/ 4 [id number] [facility] 07/28/2024/ 4 [id number] [facility] 07/27/2024/ 4 [id number] [facility] ing:[facility] PAYERS ENCOUNTER GUARANTOR PAYER SUBSCRIBER SOURCE 06/15/2025 Primary Insurance:AETNA MEDICARE PPOPolicy Number: [id number] e Date:6970-54-52Esou Name:Julio Cesar COMBS: [id number] W ESTRELLITA [address] [address] [facility] 05/22/2025 Primary Insurance:AETNA MEDICARE PPOPolicy Number: [id number] e Date:2875-15-73Wyiq Name:Julio Cesar COMBS: [id number] [address] [facility] 03/21/2025 Primary Insurance:AETNA MEDICARE PPOPolicy Number: [id number] e Date:8033-31-97Lhkd Name:Julio Cesar COMBS: [id number] [address] [facility] 03/05/2025 Primary Insurance:AETNA MEDICARE PPOPolicy Number: [id number] e Date:6617-45-14Uooh Name:Julio Cesar SANTOSB: [id number] [facility] [address] [address] [facility] 01/29/2025 Primary Insurance:AETNA MEDICARE PPOPolicy Number: [id number] e Date:8449-11-30Nwqt Name:Julio Cesar THURMANB: [id number] [address] [facility] 01/23/2025 Primary Insurance:AETNA MEDICARE PPOPolicy Number: [id number] e Date:3476-67-90Atua Name:Julio Cesar THURMANB: [id number] [address] [facility] 10/30/2024 LUCILLE S DANIELLEB: [id number] [address] [address]Krr: (HP) (WP) Primary Insurance:AETNA INSCOPolicy Number: [id number] e Date:7440-28-33Ajkd Name:Sarabjit Velasquez [id number] [address]JG: LUCILLE S DANIELLEB: [id number] [address]Hfb: (HP) (WP) [facility] 10/16/2024 Primary Insurance:AETNA MEDICARE PPOPolicy Number: [id number] e Date:6593-35-22Meub Name:Julio Cesar THURMANB: [id number] [address] [address] [facility] 10/11/2024 Primary Insurance:AETNA MEDICARE PPOPolicy Number: [id number] e Date:5623-69-67Wypo Name:Julio Cesar [place] DENNISKARONWAYNEB: [id number] [address], [place] [address] [facility] 10/10/2024 Primary Insurance:AETNA MEDICARE PPOPolicy Number: [id number] e Date:0039-58-11Jpum Name:Julio Cesar [place] DANIELLEB: [id number], [place] [address] [facility] 09/14/2024 Primary Insurance:AETNA MEDICARE PPOPolicy Number: [id number] e Date:7479-11-59Hgek Name:Julio Cesar [place] DANIELLEB: [id number] [address] [facility] 08/28/2024 Primary Insurance:AETNA MEDICARE PPOPolicy Number: [id number] e Date:6596-16-43Rvyp Name:Julio Cesar [place] DANIELLEB: [id number] [address] [address] [facility] 07/28/2024 Primary Insurance:AETNA MEDICARE PPOPolicy Number: [id number] e Date:0205-42-27Mxsz Name:Julio Cesar [place] DANIELLEB: [id number] [address] [facility] 07/27/2024 Primary Insurance:AETNA MEDICARE PPOPolicy Number: [id number] e Date:7676-75-31Oxjc Name:Julio Cesar [place] DANIELLEB: [id number] [address] [address] [facility]
[2025-06-16 07:10] VITALS: BP 146/52; PULSE 81; RESP 16; TEMP 36.5; O2SAT 98
[2025-06-16 07:21] VITALS: BMI 25.9
--- NOTE | 2025-06-16 07:32 | CT_ITS ---
PROCEDURE: SPINE LUMBAR WITHOUT CONTRAST 06/16/2025 REASON FOR EXAM: PAIN TECHNIQUE: Procedure Code: CTSPL Modality: CT Procedure: SPINE LUMBAR WITHOUT CONTRAST Coronal and Sagittal reconstruction series were provided. One or more dose reduction techniques were used (e.g., Automated exposure control, adjustment of the mA and/or kV according to patient size, use of iterative reconstruction technique COMPARISON: CT lumbar spine, 03/03/2025. RADIATION DOSE SUMMARY: CTDlvol: 15.57 mGy DLP: 561.28 mGycm FINDINGS: There is loss of the normal lumbar lordosis. There is mild compression of the inferior endplate of L1, not present on the prior exam. There is a small retropulsed fragment without evidence of spinal stenosis. There is degenerative disc disease and facet arthropathy at L2-3 without central canal stenosis. There is degenerative disc disease and facet arthropathy at L3-4 with central canal stenosis. There is degenerative disc disease and facet arthropathy at L4-5 with central canal stenosis. There is degenerative grade 1 anterolisthesis of L4 on L5. There is degenerative disc disease at L5-S1 with central canal stenosis. There is neural foraminal narrowing bilaterally, L2-3 through L5-S1. There is levoscoliosis of the lumbar spine. There is left lateral listhesis of L4 on L5. There is calcific vascular disease of the abdominal aorta. There is mild arthritis of both SI joints. CT/Spine Lumbar without Contrast IMPRESSION: 1. Interval development of mild compression of the inferior endplate of L1, as described. 2. Degenerative disc disease and facet arthropathy L2-3 through L5-S1 with aidan tral canal stenosis L3-4 through L5-S1. 3. There is neural foraminal narrowing bilaterally, L2-3 through L5-S1. Yellow Alert: Mild compression Fx, L1 The critical findings in the findings and impression above were relayed directl y by me by telephone to Julio Pickens on 06/16/2025 at 9:35 am with readback verification. Reading Location: [id number]
--- NOTE | 2025-06-16 07:34 | ED.VIS.BACK ---
HPI History of Present Illness Chief Complaint: Back Narrative Narrative: 89-year-old female past medical history of chronic back pain presents with her family because of increasing pain that she has had over the last few days. They relate history that she has had problems with her back and sees pain management. She does have oxycodones at home but only takes 2.5 mg up to 3 times a day. Her pain management doctor is Dr. Rosales. She denies any fevers or chills, no loss of her bowel or bladder. Within the last week, she was using her walker, and reportedly was bending over/forward and felt something in her back. Since then she has had increased pain. No radiation down the leg, no loss of bowel or bladder. No saddle anesthesia. Initially she did not want to see her primary care provider, but ended up seeing them yesterday and was placed on a muscle relaxer. She and her family present to the emergency department and wanting relief from her low back pain that is mainly on the left-hand side and spreads across her back. [facility] Medical History Chronic kidney disease, stage 3b Acute diastolic (congestive) heart failure NSTEMI (non-ST elevated myocardial infarction) Anemia Diabetes Non-smoker Skin cancer Dehydration GERD (gastroesophageal reflux disease) Acute blood loss anemia Closed left hip fracture HTN (hypertension) Hypercholesteremia Type II diabetes mellitus Home Medications ?Medication ?Instructions ?Recorded ?Last Taken ?Type multivitamin with folic acid 400 1 tab PO DAILYCM vitamin #30 tabs 02/11/15 03/08/25 Rx mcg tablet blood sugar diagnostic (True 10/04/24 Unknown History Metrix Glucose Test Strip) Held on 03/08/25. Instructions: Ordered aspirin 81 mg tablet,delayed 81 mg PO BREAKFAST Heart health 30 10/08/24 03/08/25 Rx release days #30 tabs carvedilol 3.125 mg tablet 3.125 mg PO BID BP 30 days #180 10/12/24 03/08/25 Rx tabs clopidogrel 75 mg tablet 75 mg PO DAILY Blood thinner 30 10/12/24 03/08/25 Rx days #90 tabs empagliflozin 10 mg tablet 10 mg PO DAILY Blood sugar 30 days 10/12/24 03/08/25 Rx (Jardiance) #90 tabs nitroglycerin 0.4 mg sublingual 0.4 mg sublingual Q5-15M PRN chest 01/01/25 Unknown Rx tablet pain #20 tabs omeprazole 20 mg capsule,delayed 20 mg PO QODAY GERD 01/01/25 03/08/25 History release furosemide 20 mg tablet 20 mg PO DAILY Fluid retention 03/03/25 03/08/25 History isosorbide mononitrate 30 mg 30 mg PO DAILY Chest pain 03/03/25 03/08/25 History tablet,extended release 24 hr losartan 100 mg tablet 100 mg PO DAILY BP 03/03/25 03/08/25 History atorvastatin 80 mg tablet 80 mg PO QHS cholesterol 03/07/25 03/07/25 History doxycycline monohydrate 100 mg 100 mg PO BID 4 days #8 caps 03/16/25 Unknown Rx capsule lidocaine 5 % topical patch 1 patch topical DAILY 30 days #30 03/16/25 Unknown Rx ea orphenadrine citrate 100 mg 100 mg PO BID 30 days #60 tabs 03/16/25 Unknown Rx tablet,extended release oxycodone 5 mg tablet 2.5 mg (1/2 x 5 mg) PO Q4H PRN PRN 03/16/25 Unknown Rx Pain Score 1-10 Or Pre Pt/Ot 7 days #21 tabs sennosides 8.6 mg-docusate sodium 1 tab PO BID 30 days #60 tabs 03/16/25 Unknown Rx 50 mg tablet (Stimulant Laxative Plus) amlodipine 10 mg tablet 10 mg PO DAILY 06/16/25 Unknown History tizanidine 4 mg tablet 4 mg PO TID 06/16/25 Unknown History Allergy/AdvReac Type Severity Reaction Status Date / Time metformin Allergy Hives Verified 06/16/25 07:09 morphine AdvReac Nausea Verified 06/16/25 07:09 oxycodone (Oxycodone) AdvReac Nausea Verified 06/16/25 07:09 Family History Sister Breast cancer Colon cancer Diabetes Uncle Heart disease Brother Kidney disease Surgical History History of appendectomy History of cholecystectomy History of hip replacement History of shoulder replacement S/P ORIF (open reduction internal fixation) fracture Social History household members: family current occupational status: retired Smoking Status: Never smoker alcohol intake: never substance use type: does not use ROS ROS ED ROS Narrative Review of systems positive for low back pain, no fevers or chills, no nausea or vomiting, no radiation down the leg, no loss of bowel or bladder, no saddle anesthesia. Worse with movement especially of left leg. EXAM Physical Exam Narrative Exam Narrative: Afebrile. Vital signs noted. Nontoxic-appearing. Cardiovascular semination regular rate and rhythm. Lungs clear to auscultation bilaterally. Abdomen is soft and nontender. Mild tenderness to palpation diffusely lumbar spine area left greater than right. No vertebral point tenderness or bony step-off. EHL intact bilaterally. Muscle strength 5 out of 5 in dorsiflexion of bilateral feet. Mild tenderness to palpation left paraspinal musculature. Pain elicited with sitting up and transfer. Const Vital Signs: 06/16/25 07:10 Temperature 97.7 F L Temperature Source Temporal Pulse Rate 81 Respiratory Rate 16 Blood Pressure 146/52 H Blood Pressure Mean 83 Pulse Ox 98 Oxygen Delivery Method Room Air MDM MDM MDM Narrative Medical decision making narrative: The differential diagnosis includes but not limited to lumbosacral strain versus vertebral compression fracture versus sciatica versus sacroiliitis. I have low clinical suspicion for cauda equina syndrome because the history and physical does not support this. Although she has intolerances to morphine and oxycodone, she already takes oxycodone at home 2.5 mg. I discussed with her family the possible need for increasing this but that should be done by her pain management physician. Here in the emergency department she will be given an intramuscular injection of [address] imaging of the lumbar spine will be obtained to help rule out fracture. I feel she probably will need more pain control and that she is not a surgical candidate. I did receive a call from the radiologist regarding the read. She does have an L1 vertebral fracture. While there is mild retropulsion, there is no spinal stenosis at that level. However, she does have chronic spinal stenosis below. At this point in time, I do not feel that she requires observation or admission. She would like to be discharged. Prior to discharge, she was given an oxycodone tablet 5 mg here. She does have oxycodone at home but only takes 2.5 mg every 4 hours. She was told she may need to increase this but she should call her pain management physician. Return instructions to the emergency department were reviewed. Patient and family agreeable to the plan. Disposition is discharged home in stable condition. History & Record Review Discussion w/independent historian: Patient and Family Radiography Diagnostic Testing: Clinical Impression(s) from Imaging Studies Lumbar Spine CT 06/16/25 07:32 IMPRESSION: 1. Interval development of mild compression of the inferior endplate of L1, as described. 2. Degenerative disc disease and facet arthropathy L2-3 through L5-S1 with central canal stenosis L3-4 through L5-S1. 3. There is neural foraminal narrowing bilaterally, L2-3 through L5-S1. Yellow Alert: Mild compression Fx, L1 The critical findings in the findings and impression above were relayed directly by me by telephone to Julio Pickens on 06/16/2025 at 9:35 am with readback verification. Reading Location: [id number] Discharge Plan Triage Chief Complaint: Back ED Provider: Julio Pickens Dx/Rx/DC Orders Clinical Impression: Compression fracture of L1 vertebra, Spinal stenosis Instructions: ED Back Pain (Acute or Chronic), ED Fracture, Vertebral Compression Prescriptions: No Action carvedilol 3.125 mg tablet 3.125 mg PO BID 30 Days Qty: 180 3RF Jardiance 10 mg tablet 10 mg PO DAILY 30 Days Qty: 90 3RF clopidogrel 75 mg tablet 75 mg PO DAILY 30 Days Qty: 90 3RF Rx Instructions: Discontinue if platelet count drops less than 50,000 or hemoglobin less than 8 g% omeprazole 20 mg capsule,delayed release(DR/EC) 20 mg PO QODAY nitroglycerin 0.4 mg tablet, sublingual 0.4 mg sublingual Q5-15M PRN (Reason: chest pain) Qty: 20 3RF Rx Instructions: do not exceed 3 doses per episode multivitamin with folic acid 1 TABLET tablet 1 tab PO DAILYCM Qty: 30 0RF Patient Comments: supplement (DME) True Metrix Glucose Test Strip Strip MISCELLANEOUS DAILY aspirin 81 mg Tablet,Delayed Release (Dr/Ec) 81 mg PO BREAKFAST 30 Days Qty: 30 4RF furosemide 20 mg tablet 20 mg PO DAILY isosorbide mononitrate 30 mg tablet extended release 24 hr 30 mg PO DAILY losartan 100 mg tablet 100 mg PO DAILY atorvastatin 80 mg tablet 80 mg PO QHS sennosides-docusate sodium [Stimulant Laxative Plus] 8.6-50 mg Tablet 1 tab PO BID 30 Days Qty: 60 0RF doxycycline monohydrate 100 mg Capsule 100 mg PO BID 4 Days Qty: 8 0RF lidocaine 5 % Adhesive Patch,Medicated 1 patch topical DAILY 30 Days Qty: 30 0RF Protocol: *Topical Application Instructions APPLICATION INSTRUCTIONS: Apply to lumbar area of back orphenadrine citrate 100 mg Tablet Extended Release 100 mg PO BID 30 Days Qty: 60 0RF oxycodone 5 mg Tablet 2.5 mg PO Q4H PRN PRN (Reason: Pain Score 1-10 Or Pre Pt/Ot) 7 Days Qty: 21 0RF tizanidine 4 mg tablet 4 mg PO TID amlodipine 10 mg tablet 10 mg PO DAILY Primary Care Provider: Jose Alberto Stanton Referrals: Jose Alberto Stanton MD [Primary Care Provider, Family Practice] Activity Restrictions/Additional Instructions: Follow-up with your pain management doctor on Wednesday. Call the office. Continue your oxycodone as previously directed, but you may need to increase the dosing to 5 mg every 4 hours as needed. Be aware of nausea, vomiting, constipation, drowsiness, and addiction with increased use of narcotic pain medication. Continue Tylenol as well. Print Language: Hungarian Disposition Disposition: Home, Self Care
[2025-06-16] MEDS: fentaNYL 100 MCG/2 ML Ampul 50 MCG IV (07:50)
--- NOTE | 2025-06-16 09:44 | CM.ED ---
Social Work Date of referral: 06/16/25 Reason for referral: Advance Care Directives (ACD's) not on file Referred by: Social Work identification Patient provided consent for social work visit. Service Delivery Supervisor requested a copy of patient's ACD's which patient was agreeable to. Sheron Alonso, RESIDENT CAREGIVER, PIGGYBACK CLERK
[2025-06-16 09:53] VITALS: BP 150/53; PULSE 71; RESP 18; TEMP 37; O2SAT 95
== END 2025-06-16 10:08 | disposition home or self-care (01) ==
PROVIDERS: Emergency Provider Emergency Medicine; PCP Family Medicine; Visit Provider Emergency Medicine
DX: M48.56XA Collapsed vertebra, not elsewhere classified, lumbar region, initial encounter for fracture (principal); I50.32 Chronic diastolic (congestive) heart failure; I13.0 Hypertensive heart and chronic kidney disease with heart failure and stage 1 through stage 4 chronic kidney disease, or unspecified chronic kidney disease; E11.22 Type 2 diabetes mellitus with diabetic chronic kidney disease; N18.32 Chronic kidney disease, stage 3b; M48.061 Spinal stenosis, lumbar region without neurogenic claudication; E78.00 Pure hypercholesterolemia, unspecified; M48.07 Spinal stenosis, lumbosacral region; G89.29 Other chronic pain; I25.2 Old myocardial infarction; Z79.82 Long term (current) use of aspirin; Z79.899 Other long term (current) drug therapy; Z79.02 Long term (current) use of antithrombotics/antiplatelets
CPT/HCPCS: 72131; 96374; 99283; A4216